=== PATIENT | female | born 1960 | race Caucasian/White ===

== ENCOUNTER 2019-12-06 14:41 | Outpatient (CLI) | payer OTHER, SELFPAY ==
--- NOTE | 2019-12-06 14:50 | MM_ITS ---
WS: [id number] BILATERAL SCREENING DIGITAL MAMMOGRAM WITH CAD HISTORY: SCREENING COMPARISON: 08/27/2014 Bilateral CC and MLO views submitted. Computer aided detection analyzed. Breast composition: There are scattered areas of fibroglandular density. No suspicious masses, microc alcifications or architectural distortion. Benign calcification in the anterior LEFT breast. MM/[place] [id number] IMPRESSION: BI-RADS: 2-Benign FOLLOW UP: 1 Year Follow-up
== END 2019-12-06 14:42 | disposition home or self-care (01) ==
LOC: RADSHAW 14:47
PROVIDERS: PCP Nurse Practitioner; Visit Provider Nurse Practitioner
DX: Z12.31 Encounter for screening mammogram for malignant neoplasm of breast (principal)
CPT/HCPCS: 77067

== ENCOUNTER → 2019-12-18 13:29 | Outpatient (BNVA) | payer OTHER, SELFPAY | PROVIDERS: PCP Nurse Practitioner; Visit Provider Obstetrics & Gynecology | DX: N90.89 Other specified noninflammatory disorders of vulva and perineum (principal) | CPT/HCPCS: 88305 ==

== ENCOUNTER 2019-12-23 08:14 | Outpatient (CLI) | payer OTHER, SELFPAY ==
--- NOTE | 2019-12-23 08:26 | US_ITS ---
WS: [id number] ULTRASOUND ABDOMEN LIMITED CLINICAL INFORMATION: ELEVATED LIVER ENZYMES COMPARISON: None. FINDINGS: Technically difficult examination due to body habitus Liver is not well seen Size: Normal. Craniocaudal length: 19.0 cm. Echogenicity: Coarse Surface nodularity: None. Mass (size and location): None. Bile ducts Intrahepatic ducts: Normal. Common bile duct diameter: 0.3 cm. Gallbladder Removed Pancreas Not well seen Right kidney: Lobulated Hydronephrosis: None. Size: 11.0 cm x 5.0 cm x 5.0 cm. Abdominal aorta and IVC Visualized portions are normal. Ascites: None. US/US abdomen limited [id number] IMPRESSION: 1. Technically difficult examination due to body habitus. 2. Hepatomegaly with diffuse fatty infiltration. 3. Gallbladder removed. 4. Pancreas not well seen. 5. No hydronephrosis in right kidney.
== END 2019-12-23 08:15 | disposition home or self-care (01) ==
LOC: RAD 08:16
PROVIDERS: PCP Nurse Practitioner; Visit Provider Nurse Practitioner
DX: R74.8 Abnormal levels of other serum enzymes (principal); K76.0 Fatty (change of) liver, not elsewhere classified; R16.0 Hepatomegaly, not elsewhere classified
CPT/HCPCS: 76705

== ENCOUNTER 2020-03-20 14:23 | Outpatient (CLI) | payer OTHER, SELFPAY ==
--- NOTE | 2020-03-20 14:28 | US_ITS ---
WS: [id number] Bilateral renal ultrasound, 03/20/2020 Clinical Data: URINARY INCONT. LOBULATED KIDNEY Comparison: Gallbladder and right upper quadrant ultrasound, 12/23/2019. Findings: The right kidney measures 11.9 cm x 6.1 cm x 5.5 cm and the left kidney is 11.0 cm x 6.5 cm x 5.8 cm. There are no cysts, masses or hydronephrosis. The renal cortical margin shows minimal lobulation whi ch is an incidental finding. No renal calculi are seen. US/US renal BI* [id number] Impression: Negative bilateral renal ultrasound.
== END 2020-03-20 14:24 | disposition home or self-care (01) ==
LOC: RAD 14:25
PROVIDERS: PCP Nurse Practitioner; Visit Provider Nurse Practitioner
DX: R32 Unspecified urinary incontinence (principal); Q63.1 Lobulated, fused and horseshoe kidney
CPT/HCPCS: 76770

== ENCOUNTER → 2020-05-07 14:02 | Outpatient (BNVA) | payer OTHER, SELFPAY | PROVIDERS: PCP Nurse Practitioner; Referring Provider Nurse Practitioner; Visit Provider Specialist | DX: M25.561 Pain in right knee (principal) | CPT/HCPCS: 73560; 73565 ==

== ENCOUNTER 2020-05-26 15:41 | Outpatient (CLI) | payer OTHER, SELFPAY ==
--- NOTE | 2020-05-26 16:01 | MR_ITS ---
WS: [id number] MRI RIGHT KNEE NONCONTRAST TECHNIQUE: Axial PD, coronal PD fat sat, coronal PD, sagittal PD, and sagittal PD fat-sat images obta ined. CLINICAL INFORMATION: KNEE PAIN COMPARISON: None. FINDINGS: Distal quadriceps and patella tendons are normal. Hypertrophic patella. Moderate tricompartmental art hritis with joint space narrowing. Normal PCL. ACL is difficult to visualize and is likely chronicall y torn. A few residual fibers visualized on coronal imaging. Chronic thinning of the medial and lateral meniscus. No acute appearing meniscal tears. Moderate jhon dromalacia involving the medial and lateral joint compartments. Hypertrophic changes along the joint line. Mild soft tissue edema about the joint line. Advanced chondromalacia patella. No subchondral edema. N ormal medial and lateral collateral ligaments. Subchondral degenerative edema involving the medial timmy int compartment and medial tibial plateau. Normal popliteal fossa. Tiny popliteal cyst. MR/MR knee RT wo con* [id number] IMPRESSION: 1. ACL is difficult to visualize likely chronically torn. A few residual fiber s visualized on coronal imaging. Normal PCL. 2. 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 3. Advanced chondromalacia patella. No subchondral edema. 4. Chronic thinning of the medial and lateral meniscus. No acute appearing men iscal tears. 5. Degenerative edema within the medial tibial plateau. Hypertrophic changes a bout the joint line.
== END 2020-05-26 15:42 | disposition home or self-care (01) ==
LOC: RADWPI 15:42
PROVIDERS: PCP Nurse Practitioner; Visit Provider Specialist
DX: R60.0 Localized edema; M22.41 Chondromalacia patellae, right knee; M17.11 Unilateral primary osteoarthritis, right knee
CPT/HCPCS: 73721

== ENCOUNTER 2020-06-04 12:28 | Outpatient (RCR) | payer OTHER, SELFPAY | END 2020-06-28 23:59 | disposition home or self-care (01) | LOC: SPT 12:28 | PROVIDERS: PCP Nurse Practitioner; Referring Provider Specialist; Visit Provider Specialist | DX: M25.561 Pain in right knee (principal) | CPT/HCPCS: 97110; 97161 ==

== ENCOUNTER 2020-06-29 06:00 | Outpatient (RCR) | payer OTHER, SELFPAY | END 2020-07-26 23:59 | disposition home or self-care (01) | LOC: SPT 06:00 | PROVIDERS: PCP Nurse Practitioner; Referring Provider Specialist; Visit Provider Specialist | DX: M25.561 Pain in right knee (principal) | CPT/HCPCS: 97110 ==

== ENCOUNTER 2020-07-27 06:00 | Outpatient (RCR) | payer OTHER, SELFPAY | END 2020-08-26 23:59 | disposition home or self-care (01) | LOC: SPT 06:00 | PROVIDERS: PCP Nurse Practitioner; Referring Provider Specialist; Visit Provider Specialist | DX: M25.561 Pain in right knee (principal) | CPT/HCPCS: 97110 ==

== ENCOUNTER 2020-08-27 06:00 | Outpatient (RCR) | payer OTHER, SELFPAY | END 2020-09-25 23:59 | disposition home or self-care (01) | LOC: SPT 06:00 | PROVIDERS: PCP Nurse Practitioner; Referring Provider Specialist; Visit Provider Specialist | DX: M25.561 Pain in right knee (principal) | CPT/HCPCS: 97110 ==

== ENCOUNTER 2020-09-26 06:00 | Outpatient (RCR) | payer OTHER, SELFPAY | END 2020-10-26 23:59 | disposition home or self-care (01) | LOC: SPT 06:00 | PROVIDERS: PCP Nurse Practitioner; Referring Provider Specialist; Visit Provider Specialist | DX: M25.561 Pain in right knee (principal) | CPT/HCPCS: 97110 ==

== ENCOUNTER 2020-10-27 06:00 | Outpatient (RCR) | payer OTHER, SELFPAY | END 2020-11-25 23:59 | disposition home or self-care (01) | LOC: SPT 06:00 | PROVIDERS: PCP Nurse Practitioner; Referring Provider Specialist; Visit Provider Specialist | DX: M25.561 Pain in right knee (principal) | CPT/HCPCS: 97110 ==

== ENCOUNTER 2020-11-12 05:59 | Outpatient (CLI) | payer OTHER, SELFPAY ==
[2020-11-12 05:57] VITALS: BP 133/76; PULSE 84; RESP 22; TEMP 37.2; O2SAT 94; BMI 43.0
--- NOTE | 2020-11-12 06:31 | AMB.MCA ---
Patient Information Referred by: 60-year-old female who had onset of symptoms with fever myalgias sinus congestion mild cough on November 06 was tested at the [facility] which came back positive. She meets criteria based on history of hypertension and obesity. Discussed with the patient she wishes to proceed. Discussed risk benefits and alternatives patient given opportunity to ask questions. She has not been excessively short of breath but still has a cough she has had some diarrhea she did not has not needed any oxygen to this point. Symptom onset date: 11/06/20 COVID 19 common symptoms: positive fever(s), chills, cough, dyspnea, fatigue, body aches, headache(s), throat pain, nasal congestion, nausea and diarrhea; negative loss of sense of smell and/or taste COVID 19 other sytmptoms: negative requiring oxygen or respiratory distress Severity: mild Treatment prior to arrival: none [facility] COVID test results: No Data to Display outside results available, scanned Criteria/Plan Inclusion/Exclusion Criteria weight >/= 40kg, + direct test </= 10 days ago and symptom onset </= 10 days ago BMI >/= 35 and age >/= 55 and has hypertension needs hospitalization (DO NOT GIVE), needs oxygen (DO NOT GIVE) and needs increased oxygen (DO NOT GIVE) Patient education patient/family/caregiver received/reviewed fact sheet, Emergency Use Authorization/unapproved drug status discussed with patient/family/caregiver, alternatives to this treatment discussed with patient/family/caregiver, risks and benefits of medication reviewed with patient/family/caregiver, patient/family/caregiver given opportunity for questions, which were answered and patient consents to receiving Monoclonal Antibody Treatment Related diagnosis (1) Morbid obesity with BMI of 45.0-49.9, adult: (2) Hypertension: Plan for treatment Meets criteria for Monoclonal Antibody infusion Ordering Monoclonal Antibody infusion for today
[2020-11-12 08:00] VITALS: RESP 15; O2SAT 92
== END 2020-11-12 08:44 | disposition home or self-care (01) ==
PROVIDERS: PCP Nurse Practitioner; Visit Provider Nurse Practitioner
DX: U07.1 COVID-19 (principal); E66.01 Morbid (severe) obesity due to excess calories; Z68.42 Body mass index [BMI] 45.0-49.9, adult; I10 Essential (primary) hypertension
CPT/HCPCS: 96365

== ENCOUNTER → 2021-03-01 15:10 | Outpatient (BNVA) | payer OTHER, BC, SELFPAY | PROVIDERS: PCP Nurse Practitioner; Visit Provider Internal Medicine | DX: E11.65 Type 2 diabetes mellitus with hyperglycemia (principal); E11.59 Type 2 diabetes mellitus with other circulatory complications; E11.42 Type 2 diabetes mellitus with diabetic polyneuropathy; E16.2 Hypoglycemia, unspecified; I10 Essential (primary) hypertension; E78.2 Mixed hyperlipidemia; R30.0 Dysuria; I25.10 Atherosclerotic heart disease of native coronary artery without angina pectoris; E66.01 Morbid (severe) obesity due to excess calories; Z68.42 Body mass index [BMI] 45.0-49.9, adult; Z87.891 Personal history of nicotine dependence | CPT/HCPCS: 99214 ==

== ENCOUNTER → 2021-03-15 11:19 | Outpatient (BNVA) | payer OTHER, BC, SELFPAY | PROVIDERS: PCP Nurse Practitioner; Visit Provider Internal Medicine | DX: R30.0 Dysuria (principal); E11.59 Type 2 diabetes mellitus with other circulatory complications; E11.65 Type 2 diabetes mellitus with hyperglycemia; E11.42 Type 2 diabetes mellitus with diabetic polyneuropathy; I25.10 Atherosclerotic heart disease of native coronary artery without angina pectoris; E66.01 Morbid (severe) obesity due to excess calories; Z68.42 Body mass index [BMI] 45.0-49.9, adult; E16.2 Hypoglycemia, unspecified; Z87.891 Personal history of nicotine dependence | CPT/HCPCS: 99213 ==

== ENCOUNTER → 2021-04-08 13:01 | Outpatient (BNVA) | payer OTHER, BC, SELFPAY | PROVIDERS: PCP Nurse Practitioner; Visit Provider Internal Medicine | DX: E11.59 Type 2 diabetes mellitus with other circulatory complications (principal); E11.65 Type 2 diabetes mellitus with hyperglycemia; E11.42 Type 2 diabetes mellitus with diabetic polyneuropathy; I10 Essential (primary) hypertension; I25.10 Atherosclerotic heart disease of native coronary artery without angina pectoris; E66.01 Morbid (severe) obesity due to excess calories; Z68.42 Body mass index [BMI] 45.0-49.9, adult; Z87.891 Personal history of nicotine dependence; Z79.4 Long term (current) use of insulin | CPT/HCPCS: 99214 ==

== ENCOUNTER → 2021-04-18 14:20 | Outpatient (BNVA) | payer OTHER, BC, SELFPAY | PROVIDERS: PCP Nurse Practitioner; Visit Provider Nurse Practitioner | DX: R05.9 Cough, unspecified (principal) | CPT/HCPCS: 87400 ==

== ENCOUNTER 2021-04-24 13:45 | Emergency (ER) | payer OTHER, BC, SELFPAY ==
--- NOTE | 2021-04-24 13:52 | XRR_ITS ---
PROCEDURE INFORMATION: Exam: XR Left Knee Exam date and time: 04/24/2021 1:52 PM Age: 61 years old Clinical indication: Injury or trauma; Fall; Blunt trauma; Knee; Left; Additional info: Trauma/injury TECHNIQUE: Imaging protocol: XR Left knee. Views: 3 views. COMPARISON: No relevant prior studies available. FINDINGS: Bones/joints: Small osteophytes at the medial and lateral compartments. Mild loss of medial compartment joint space height. Moderate knee joint effusion. Large osteophyte versus an intra-articular loose body in the posterior knee joint space. No acute fracture. No dislocation. Normal bone mineralization. Soft tissues: No soft tissue swelling. No radiopaque foreign body. XR/XR knee LT 3V* [id number] IMPRESSION: 1. No acute fracture. Followup imaging recommended in 7-14 days if clinical concern for fracture persists. 2. Moderate knee joint effusion. 3. Degenerative changes at the medial and lateral compartments of the knee. Large osteophyte versus an intra-articular loose body in the posterior knee joint space. Further evaluation with MRI of the left knee on a nonemergent basis may be obtained if it will change clinical management, and the patient has no contraindications. Radiation Dose CTDIVOL = (mGy): DLP = (mGy-cm)
[2021-04-24 14:22] VITALS: BP 144/83; PULSE 71; RESP 16; TEMP 36.5; O2SAT 97; BMI 44.6
--- NOTE | 2021-04-24 14:42 | ED_ITS ---
HPI - Extremity Injury (Lower) General: Chief Complaint: Fall Stated Complaint: L KNEE INJURY, PAIN/SWELLING Time Seen by Provider: 04/24/21 14:39 Source: patient Mode of arrival: ambulatory Limitations: no limitations History of Present Illness: HPI Narrative: Patient is a 61-year-old female presents to ED today for evaluation of a left knee injury that she sustained approximately 5 to 6 days ago after tripping going up a flight of stairs and landing directly onto the knee. Patient has been ambulatory since the fall but states pain continues to worsen. No other injuries or complaints at this time. complaint: knee injury Onset (ago): day(s) Injury: Left: knee Place: home Severity: moderate Relieving factors: immobilization Exacerbating factors: weight bearing, movement and palpation Context: fall Associated symptoms: Reports no associated symptoms Other symptoms: none Review of Systems Musc: Reports: joint pain (L knee); Denies: neck pain, back pain, extremity pain, extremity swelling, joint swelling, joint redness or joint warmth Neuro: Denies: numbness in extremities or sensory changes PFS ED PFSH: Medical History Anxiety and depression Diagnosed in the and controlled well on medication at this time managed by primary care provider nurse jami Tvaeras. Chronic back pain Associated with neuropathy. Takes Lyrica for the neuropathy. Does take hydrocodone as needed for pain. GERD (gastroesophageal reflux disease) Controlled on medication Hypertension Diagnosed in 2018 managed by primary care provider nurse jami Taveras No pertinent past medical history Denies: hypercholesterolemia, thyroid problems, bleeding/clotting disorders, DVT/PE. PCP: DELMA Bazzi Post traumatic stress disorder (PTSD) Surgical History History of back surgery Pain pump insertion, removed in 2014 Hx of breast surgery ductectomy from the left breast done in her late 30s Hx of oophorectomy 1980---right lower quadrant incision-right ovary and appendix were removed when she presented with pain to the emergency room S/P appendectomy 1980-right lower quadrant incision, right ovary and appendix were removed. S/P cholecystectomy Laparoscopic procedure performed in 1992 S/P hysterectomy 1985--vaginal hysterectomy with left oophorectomy performed for a uterine mass she was told that there was no cancer but there were some abnormal cells and it was recommended that she have chemotherapy for 6 weeks however she did only 2 weeks and then did not finish the rest of treatment. S/P left knee arthroscopy S/P tonsillectomy and adenoidectomy As a child S/P tubal ligation 1982-immediately . Family History Mother Heart disease Hypertension Ovarian cancer Diagnosed at age 34 Suicide Thyroid condition Uterine cancer Diagnosed at age 34, unsure of origin Father Heart disease Thyroid condition Sister Thyroid condition Family/Other Thyroid condition [place], granddaughter Denies family history of Colon cancer Diabetes Hyperlipidemia Breast cancer Social History Smoking and tobacco status: former smoker Quit status (tobacco): has quit using tobacco Second hand smoke exposure: No Smoking risk assessment/counseling performed?: Yes Alcohol intake: former Desire information about alcohol rehabilitation?: No Counseling given: No Desire information about substance/drug rehabilitation?: No Counseling given: No Adopted: No Caregiver/support person: No Lives independently: Yes Household members: spouse Housing: House Marital status: Number of children: 2 Highest education level completed: Associate Degree: Occupational, Technical, Vocational Program service: Yes Current occupational status: employed Pets and animals: Yes History of recent travel: No Sexually active: Yes Current gender identity: Female Gricel/Hindu: Uatsdin Special gricel needs: No Agree to transfusion: No Physical Exam Const: COMMON NORMALS: no acute distress, no limitations and alert GENERAL APPEARANCE: cooperative NUTRITIONAL APPEARANCE: obese morbidly obese Extremity: GENERAL: Yes normal exam except as noted LEFT LOWER EXTREMITY: Yes knee joint (TTP lateral/posterior knee; no obvious swelling appreciated) Left knee: Yes neurovascular exam (normal) and Yes special tests (no obvious joint laxity noted) Neuro: COMMON NORMALS: moves all extremities, no focal motor deficits and no sensory deficits noted SENSORIUM/ORIENTATION: Yes alert Skin: COMMON NORMALS: no rashes or lesions noted GENERAL SKIN EXAM: no rashes or lesions noted TRAUMA: no lacerations or abrasions Course Vital Signs: Vital signs: Vital Signs Temperature 97.7 F 04/24/21 14:22 Pulse Rate 71 04/24/21 14:22 Respiratory Rate 18 04/24/21 14:43 Blood Pressure 144/83 04/24/21 14:22 Pulse Oximetry 97 04/24/21 14:22 MDM - Extremity Injury (Lower) MDM Narrative: Medical decision making narrative: Will ROSLYN wrap/crutches/pain meds and [facility]/referral to orthopedics if necessary. Imaging Data^: XR L knee: Radiologist's impression: [address] [place] [address] XRay Report Signed Patient: Randi Kay Unit #: [id number] : 1960 Age/Sex: 61 / F ADM Date: 04/24/21 Loc: ER Room/Bed: Attending Dr: Ordering Provider/Ordering MD: Kesha Schilling Date of Service: 04/24/21 Procedure(s): XR knee LT 3V* [id number] Accession Number(s): [id number] Report Number: [id number] PROCEDURE INFORMATION: Exam: XR Left Knee Exam date and time: 04/24/2021 1:52 PM Age: 61 years old Clinical indication: Injury or trauma; Fall; Blunt trauma; Knee; Left; Additional info: Trauma/injury TECHNIQUE: Imaging protocol: XR Left knee. Views: 3 views. COMPARISON: No relevant prior studies available. FINDINGS: Bones/joints: Small osteophytes at the medial and lateral compartments. Mild loss of medial compartment joint space height. Moderate knee joint effusion. Large osteophyte versus an intra-articular loose body in the posterior knee joint space. No acute fracture. No dislocation. Normal bone mineralization. Soft tissues: No soft tissue swelling. No radiopaque foreign body. XR/XR knee LT 3V* [id number] IMPRESSION: 1. No acute fracture. Followup imaging recommended in 7-14 days if clinical concern for fracture persists. 2. Moderate knee joint effusion. 3. Degenerative changes at the medial and lateral compartments of the knee. Large osteophyte versus an intra-articular loose body in the posterior knee joint space. Further evaluation with MRI of the left knee on a nonemergent basis may be obtained if it will change clinical management, and the patient has no contraindications. Radiation Dose CTDIVOL = (mGy): DLP = (mGy-cm) Dictated By: Julianna Givens MD Signed By: Julianna Givens MD Signed Date/Time: 04/24/21 1524 DD/ 1352 Discharge Plan Discharge Patient Disposition: Home Clinical Impression: Injury of knee, left Qualifiers: Encounter type: initial encounter Qualified Code(s): S89.92XA - Unspecified injury of left lower leg, initial encounter Condition: Stable Prescriptions: New hydrocodone-acetaminophen 5-325 mg tablet 1 tab PO Q6H PRN (Reason: pain) Qty: 14 RF: 0 No Action spironolactone [Aldactone] 25 mg tablet 25 mg PO DAILY RF: 0 Protonix [address] for susp in packet 40 mg PO DAILY RF: 0 amlodipine 10 mg tablet 10 mg PO DAILY RF: 0 pregabalin [Lyrica] 75 mg capsule 225 mg PO BID RF: 0 cholecalciferol (vitamin D3) 100 mcg (4,000 unit) tablet 100 mcg PO DAILY RF: 0 prazosin 2 mg capsule 4 mg PO DAILY RF: 0 topiramate [Topamax] 50 mg tablet 100 mg PO DAILY RF: 0 insulin aspart U-100 [Novolog Flexpen U-100 Insulin] 100 unit/mL (3 mL) insulin pen 5 unit SUBCUT .TIDAC Qty: 15 RF: 3 duloxetine [Cymbalta] 60 mg capsule,delayed release(DR/EC) 60 mg PO BID RF: 0 buspirone 30 mg tablet 20 mg PO BID RF: 0 Ozempic 0.25 mg or 0.5 mg(2 mg/1.5 mL) pen injector SUBCUT RF: 0 albuterol sulfate [Ventolin HFA] 90 mcg/actuation HFA aerosol inhaler 2 puff inhalation Q6H PRN (Reason: shortness of breath or wheezing) Qty: 8.5 RF: 0 alogliptin 25 mg tablet 25 mg PO DAILY Qty: 30 RF: 0 Discharge Orders: Discharge ED (Routine); Ordered 04/24/21 Ordered By: Kesha Schilling Referrals: Anju Taveras FNP [Primary Care Provider] - Coding Level of Care Code ED 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
[2021-04-24 14:43] VITALS: RESP 18
[2021-04-24 15:57] VITALS: RESP 16
== END 2021-04-24 15:47 | disposition home or self-care (01) ==
PROVIDERS: Emergency Provider Physician Assistant; PCP Nurse Practitioner
DX: S89.92XA Unspecified injury of left lower leg, initial encounter (principal); Z79.4 Long term (current) use of insulin; I10 Essential (primary) hypertension; Z87.891 Personal history of nicotine dependence; W01.0XXA Fall on same level from slipping, tripping and stumbling without subsequent striking against object, initial encounter
CPT/HCPCS: 73562; 99283; E0114

== ENCOUNTER → 2021-05-11 11:08 | Outpatient (BNVA) | payer OTHER, BC, SELFPAY | PROVIDERS: PCP Nurse Practitioner; Visit Provider Internal Medicine | DX: E11.42 Type 2 diabetes mellitus with diabetic polyneuropathy (principal); E11.59 Type 2 diabetes mellitus with other circulatory complications; E11.65 Type 2 diabetes mellitus with hyperglycemia; I25.10 Atherosclerotic heart disease of native coronary artery without angina pectoris; E66.01 Morbid (severe) obesity due to excess calories; F32.A Depression, unspecified; Z68.42 Body mass index [BMI] 45.0-49.9, adult; Z87.891 Personal history of nicotine dependence; Z79.84 Long term (current) use of oral hypoglycemic drugs | CPT/HCPCS: 99214 ==

== ENCOUNTER → 2021-06-07 13:10 | Outpatient (BNVA) | payer OTHER, BC, SELFPAY | PROVIDERS: PCP Nurse Practitioner; Visit Provider Internal Medicine | DX: E11.59 Type 2 diabetes mellitus with other circulatory complications (principal); E11.42 Type 2 diabetes mellitus with diabetic polyneuropathy; E11.65 Type 2 diabetes mellitus with hyperglycemia; I25.10 Atherosclerotic heart disease of native coronary artery without angina pectoris; E66.01 Morbid (severe) obesity due to excess calories; Z68.42 Body mass index [BMI] 45.0-49.9, adult; Z79.4 Long term (current) use of insulin | CPT/HCPCS: 99214 ==

== ENCOUNTER → 2021-06-09 10:41 | Outpatient (BNVA) | payer OTHER, BC, SELFPAY | PROVIDERS: PCP Nurse Practitioner; Referring Provider Nurse Practitioner; Visit Provider Podiatrist Foot & Ankle Surgery | DX: M79.671 Pain in right foot (principal) | CPT/HCPCS: 73630 ==

== ENCOUNTER 2021-06-09 14:16 | Outpatient (CLI) | payer OTHER, SELFPAY | END 2021-06-09 14:17 | disposition home or self-care (01) | LOC: SPT 14:17 | PROVIDERS: PCP Nurse Practitioner; Visit Provider Podiatrist Foot & Ankle Surgery | DX: Z46.89 Encounter for fitting and adjustment of other specified devices (principal); M72.2 Plantar fascial fibromatosis; E11.21 Type 2 diabetes mellitus with diabetic nephropathy; M21.40 Flat foot [pes planus] (acquired), unspecified foot; M21.611 Bunion of right foot; M21.612 Bunion of left foot; M20.41 Other hammer toe(s) (acquired), right foot; M20.42 Other hammer toe(s) (acquired), left foot | CPT/HCPCS: 97760; L4397 ==

== ENCOUNTER 2021-07-02 16:53 | Outpatient (CLI) | payer OTHER, SELFPAY ==
--- NOTE | 2021-07-02 | US_ITS ---
WS: . PROCEDURE INFORMATION: Exam: US Right Non-Vascular Joint or Other Extremity Structure Exam date and time: 07/02/2021 5:00 PM Clinical indication: Pain: Bilateral plantar metatarsal area pain. 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 Pain in bilateral plantar metatarsal areas x 6 yrs. HX neuropathy x 6 yrs. Iddm x 1 yr. Obesity. Painful, difficulty walking. She states that she has almost no feeling in either foot x 1 yr. ; Additional info: Rule out dc's neuroma, bilateral lower extremities TECHNIQUE: Imaging protocol: Right US joint or other nonvascular extremity structure or structures. Real-time ultrasound with image documentation. Limited study. Exam focused on the lower extremity in the region of clinical interest. COMPARISON: No relevant prior studies available. FINDINGS: Soft tissues: Unremarkable. No significant edema. No loculated collections. No focal mass Exam: US Left Non-Vascular Joint or Other Extremity Structure Exam date and time: 07/02/2021 5:00 PM Age: 61 years old Clinical indication: Pain: Bilateral plantar metatarsal area pain. 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 Pain in bilateral plantar metatarsal areas x 6 yrs. HX neuropathy x 6 yrs. Iddm x 1 yr. Obesity. Painful, difficulty walking. She states that she has almost no feeling in either foot x 1 yr. ; Additional info: Rule out dc's neuroma, bilateral lower extremities TECHNIQUE: Imaging protocol: Left US joint or other nonvascular extremity structure or structures. Real-time ultrasound with image documentation. Limited study. Exam focused on the lower extremity in the region of clinical interest. COMPARISON: No relevant prior studies available. FINDINGS: Soft tissues: Unremarkable. No significant edema. No loculated collections. No focal mass. US/ soft tissue/extremity [id number] IMPRESSION: No mass or fluid collection in the area of concern, right foot. PROCEDURE INFORMATION: IMPRESSION: No mass or fluid collection in the area of concern, left foot.
--- NOTE | 2021-07-02 17:00 | USR_ITS ---
. PROCEDURE INFORMATION: Exam: US Right Non-Vascular Joint or Other Extremity Structure Exam date and time: 07/02/2021 5:00 PM Clinical indication: Pain: Bilateral plantar metatarsal area pain. 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 Pain in bilateral plantar metatarsal areas x 6 yrs. HX neuropathy x 6 yrs. Iddm x 1 yr. Obesity. Painful, difficulty walking. She states that she has almost no feeling in either foot x 1 yr. ; Additional info: Rule out dc's neuroma, bilateral lower extremities TECHNIQUE: Imaging protocol: Right US joint or other nonvascular extremity structure or structures. Real-time ultrasound with image documentation. Limited study. Exam focused on the lower extremity in the region of clinical interest. COMPARISON: No relevant prior studies available. FINDINGS: Soft tissues: Unremarkable. No significant edema. No loculated collections. No focal mass PROCEDURE INFORMATION: Exam: US Left Non-Vascular Joint or Other Extremity Structure Exam date and time: 07/02/2021 5:00 PM Age: 61 years old Clinical indication: Pain: Bilateral plantar metatarsal area pain. 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 Pain in bilateral plantar metatarsal areas x 6 yrs. HX neuropathy x 6 yrs. Iddm x 1 yr. Obesity. Painful, difficulty walking. She states that she has almost no feeling in either foot x 1 yr. ; Additional info: Rule out dc's neuroma, bilateral lower extremities TECHNIQUE: Imaging protocol: Left US joint or other nonvascular extremity structure or structures. Real-time ultrasound with image documentation. Limited study. Exam focused on the lower extremity in the region of clinical interest. COMPARISON: No relevant prior studies available. FINDINGS: Soft tissues: Unremarkable. No significant edema. No loculated collections. No focal mass. US/ soft tissue/extremity [id number] IMPRESSION: No mass or fluid collection in the area of concern, right foot. IMPRESSION: No mass or fluid collection in the area of concern, left foot.
== END 2021-07-02 16:54 | disposition home or self-care (01) ==
LOC: RAD 16:54
PROVIDERS: PCP Nurse Practitioner; Visit Provider Podiatrist Foot & Ankle Surgery
DX: G57.63 Lesion of plantar nerve, bilateral lower limbs (principal)
CPT/HCPCS: 76882

== ENCOUNTER 2021-07-05 15:42 | Inpatient (IN) | payer OTHER, BC, SELFPAY ==
[2021-07-05] VITALS (7 sets, daily range): BP systolic 100–150; BP diastolic 46–83; PULSE 68–83; RESP 16–18; TEMP 36.4–37; O2SAT 92–98
--- NOTE | 2021-07-05 15:55 | XRR_ITS ---
PROCEDURE INFORMATION: Exam: XR Chest Exam date and time: 07/05/2021 3:55 PM Age: 61 years old Clinical indication: Pain; Angina pectoris; Additional info: Chest pain TECHNIQUE: Imaging protocol: XR of the chest. Views: 1 view. COMPARISON: No relevant prior studies available. FINDINGS: Lungs: The lungs are clear. Pleural spaces: Unremarkable. No pleural effusion. No pneumothorax. Heart/Mediastinum: Unremarkable. No cardiomegaly. Bones/joints: Mild degenerative changes are present in the thoracic spine. No acute fracture is visualized. XR/XR chest 1V portable [id number] IMPRESSION: No acute cardiopulmonary abnormality.
--- NOTE | 2021-07-05 15:56 | ECG_ITS ---
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 [email or web address]
[2021-07-05 16:11] LABS: Basophils # 0.1 10^3/uL (0.0-0.1); Basophils % 0.8 %; Eosinophils # 0.3 10^3/uL (0.0-0.8); Eosinophils % 2.7 %; Hematocrit 44.6 % (37.0-47.0); Hemoglobin 14.7 g/dL (11.5-15.3); Lymphocytes # 2.8 10^3/uL (0.8-4.8); Lymphocytes % 27.2 %; Mean Corpuscular Hemoglobin 29.3 pg (28.0-34.0); Mean Corpuscular Volume 88.8 fl (81-99); Monocytes # 0.8 10^3/uL (0.2-0.9); Monocytes % 7.9 %; Neutrophils # 6.35 10^3/uL (1.8-7.7); Neutrophils % 60.7 %; Nucleated Red Blood Cells % 0 %; Platelet Count 215 10^3/cmm (130-400); Red Blood Count 5.02 10^6/uL (4.1-5.3); White Blood Count 10.5 10^3/uL (4.0-10.0)
[2021-07-05 16:38] LABS: Anion Gap 16.7 (5-19); Blood Urea Nitrogen 15 mg/dL (6-20); Calcium 9.6 mg/dL (8.5-10.5); Carbon Dioxide 24 mmol/L (22-29); Chloride 107 mmol/L (98-107); Glomerular Filtration Rate 73.4 mL/min (90-130); Glucose 130 mg/dL (65-115); Osmolality Calculated 301 mOsm/kg (285-295); Potassium 3.7 mmol/L (3.5-5.1); Sodium 144 mmol/L (136-145)
[2021-07-05 16:40] LABS: Troponin(5th) Baseline 8 ng/L (0-10)
--- NOTE | 2021-07-05 17:02 | W.ED.GENADLT ---
HPI - General Adult General: Chief complaint: Chest Pain Stated complaint: CHEST PRESSURE Time Seen by Provider: 07/05/21 15:55 History of Present Illness: CC: Chest Pain HPI: This is a [61] yo patient hx of morbid obesity, DM, HTN presenting to the ED complaining of acute sudden onset intermittent chest pressure and dypsnea on exertion worsening over the last 3 days. Patient reports pain lasts for a few minutes at a time and is dull pressure-like pain. Patient noticed extreme fatigue on ambulation the last few days and now with pain at rest. Pain is not tearing in nature and does not radiate to the back. Pain not associated with vomiting or PO intake. Denies any recent sympathomimetic drug use. Patient denies any cough. Denies palpitations, dysphagia, diaphoresis, radiation of pain to bilateral arms, jaw. Denies F/N/V/D. Patient denies any recent immobility, surgery, unilateral leg swelling, or prior PE. Patient denies any orthopnea. Onset: 3 days ago Duration: ongoing for the last 3 days Location: home Severity: moderate Associated symptoms: Reports chest pain and dyspnea; Deny nausea, rash, palpitations or vomiting Review of Systems Const: Denies: fever(s) or chills Eyes: Denies: change in vision ENMT: Denies: mouth pain Card: Reports: chest pain; Denies: palpitations Resp: Reports: dyspnea; Denies: non-productive cough GI: Denies: abdominal pain, nausea, vomiting or diarrhea : Denies: dysuria Musc: Denies: extremity pain Skin/Breast: Denies: rash or new lesions Neuro: Denies: weakness in extremities Psych: Reports: other (Normal mood) Caleb/Lymph: Denies: easy bruising [facility] ED PFSH: Medical History Anxiety and depression Diagnosed in the 1980s and controlled well on medication at this time managed by primary care provider nurse jami Taveras. Chronic back pain Associated with neuropathy. Takes Lyrica for the neuropathy. Does take hydrocodone as needed for pain. GERD (gastroesophageal reflux disease) Controlled on medication Hypertension Diagnosed in 2018 managed by primary care provider nurse jami Taveras No pertinent past medical history Denies: hypercholesterolemia, thyroid problems, bleeding/clotting disorders, DVT/PE. 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 S/P cholecystectomy Laparoscopic procedure performed in 1992 S/P hysterectomy 1985--vaginal hysterectomy with left oophorectomy performed for a uterine mass she was told that there was no cancer but there were some abnormal cells and it was recommended that she have chemotherapy for 6 weeks however she did only 2 weeks and then did not finish the rest of treatment. S/P left knee arthroscopy S/P tonsillectomy and adenoidectomy As a child S/P tubal ligation 1982-immediately . Family History Mother Heart disease Hypertension Ovarian cancer Diagnosed at age 34 Suicide Thyroid condition Uterine cancer Diagnosed at age 34, unsure of origin Father Heart disease Thyroid condition Sister Thyroid condition Family/Other Thyroid condition [place], granddaughter Denies family history of Colon cancer Diabetes Hyperlipidemia Breast cancer Social History Quit status (tobacco): has quit using tobacco Second hand smoke exposure: No Smoking risk assessment/counseling performed?: Yes Alcohol intake: former Desire information about alcohol rehabilitation?: No Counseling given: No Desire information about substance/drug rehabilitation?: No Counseling given: No Adopted: No Caregiver/support person: No Lives independently: Yes Household members: spouse Housing: House Marital status: Number of children: 2 Highest education level completed: Associate Degree: Occupational, Technical, Vocational Program service: Yes Current occupational status: employed Pets and animals: Yes History of recent travel: No Sexually active: Yes Current gender identity: Female Gricel/Church: [employer] Special gricel needs: No Agree to transfusion: No Physical Exam Const: COMMON NORMALS: alert HENMT: COMMON NORMALS: atraumatic HEAD & SCALP: atraumatic MOUTH: moist mucous membranes not abnormal Eye: COMMON NORMALS: EOMs intact bilaterally and conjunctivae normal CONJUNCTIVA: Yes conjunctivae normal Neck/C-Spine: COMMON NORMALS: full ROM and supple Resp: COMMON NORMALS: normal respiratory effort and clear to auscultation bilaterally AUSCULTATION: clear to auscultation bilaterally Cardio: COMMON NORMALS: regular rate RATE: regular rate OTHER: 2+ radial pulses b/l GI: COMMON NORMALS: Soft to palpation and non-tender PALPATION: Yes Soft to palpation Extremity: COMMON NORMALS: full ROM OTHER: no kiera sign, b/l nonpitting edema Neuro: SENSORIUM/ORIENTATION: Yes alert MOTOR EXAM: No Abnormal motor strength present and Other motor observations present (no focal motor deficits) Psych: COMMON NORMALS: speech normal SPEECH: Yes normal speech MOOD & AFFECT: Yes euthymic mood Course Vital Signs: Vital signs: Vital Signs Temperature 97.6 F 07/05/21 16:36 Pulse Rate 70 07/05/21 16:36 Respiratory Rate 18 07/05/21 17:32 Blood Pressure 145/70 07/05/21 16:36 Pulse Oximetry 98 07/05/21 16:36 MDM - General Adult Medical Decision Making [61]yo patient w/ hx of morbid obesity, DM, HTN presenting to the ED with evaluation of new onset sharp chest pain lasting for 3 days. HDS, pulse 2+ radially bilaterally, no signs of fluid overload, AAOx3, neuro exam intact. Given History and Exam today will evaluate for ACS, Pneumothorax, Pneumonia, Pulmonary Embolus, Tamponade, Aortic Dissection or other emergent problems as a cause for this presentation. Currently having 5/10 chest pain EMS intervention: ASA 325mg and nitro 0.4mg Workup: ECG, CXR, CBC, BMP, Troponin Interventions: Nitroglycerin 0.4 [id number] Findings: ECG: No overt evidence of STEMI, hyperacute T waves, localizable STD or T wave inversions. No evidence of Brugada?s sign, delta wave, epsilon wave, significantly prolonged QTc, or malignant arrhythmia. No Q waves. Other Labs unremarkable for emergent problems. CXR: Without PTX, PNA, or widened mediastinum Last Stress Test: never Last Heart Catheterization: never Dimer wnl. [5:30pm] On reassessment, the patient is HDS. Chest pressure improve with nitroglycerinx 3. EKG is non-ischemic but given HEART score > 4, will admit for stress test. Disposition: admission Lab Data : 07/05/21 15:25 07/05/21 15:25 Radiology Impressions Chest X-Ray 07/05/21 15:55 IMPRESSION: No acute cardiopulmonary abnormality. Laboratory Results WBC 10.5 10^3/uL (4.0-10.0) H 07/05/21 15:25 RBC 5.02 10^6/uL (4.1-5.3) 07/05/21 15:25 Hgb 14.7 g/dL (11.5-15.3) 07/05/21 15:25 Hct 44.6 % (37.0-47.0) 07/05/21 15:25 MCV 88.8 fl (81-99) 07/05/21 15:25 MCH 29.3 pg (28.0-34.0) 07/05/21 15:25 MCHC 33.0 g/dL (30.0-36.0) 07/05/21 15:25 RDW 13.0 % (12.1-15.1) 07/05/21 15:25 Plt Count 215 10^3/cmm (130-400) 07/05/21 15:25 MPV 12.0 fL (7.4-10.4) H 07/05/21 15:25 Neut % (Auto) 60.7 % 07/05/21 15:25 Lymph % (Auto) 27.2 % 07/05/21 15:25 [place] % (Auto) 7.9 % 07/05/21 15:25 Eos % (Auto) 2.7 % 07/05/21 15:25 Baso % (Auto) 0.8 % 07/05/21 15:25 Neut # (Auto) 6.35 10^3/uL (1.8-7.7) 07/05/21 15:25 Lymph # (Auto) 2.8 10^3/uL (0.8-4.8) 07/05/21 15:25 [place] # (Auto) 0.8 10^3/uL (0.2-0.9) 07/05/21 15:25 Eos # (Auto) 0.3 10^3/uL (0.0-0.8) 07/05/21 15:25 Baso # (Auto) 0.1 10^3/uL (0.0-0.1) 07/05/21 15:25 Nucleated RBC % (auto) 0 % 07/05/21 15:25 Nucleated RBCs # 0.0 /100WBC 07/05/21 15:25 D-Dimer 0.56 ug/mIFEU (0-0.59) 07/05/21 17:23 Sodium 144 mmol/L (136-145) 07/05/21 15:25 Potassium 3.7 mmol/L (3.5-5.1) 07/05/21 15:25 Chloride 107 mmol/L (98-107) 07/05/21 15:25 Carbon Dioxide 24 mmol/L (22-29) 07/05/21 15:25 Anion Gap 16.7 (5-19) 07/05/21 15:25 BUN 15 mg/dL (6-20) 07/05/21 15:25 Creatinine 0.8 mg/dL (0.5-0.9) 07/05/21 15:25 GFR Calculation 73.4 mL/min (90-130) L 07/05/21 15:25 Glucose 130 mg/dL (65-115) H 07/05/21 15:25 Calculated Osmolality 301 mOsm/kg (285-295) H 07/05/21 15:25 Calcium 9.6 mg/dL (8.5-10.5) 07/05/21 15:25 Troponin T Baseline 8 ng/L (0-10) 07/05/21 15:25 Discharge Plan Discharge Patient Disposition: Admitted As Inpatient Clinical Impression: Chest pain, Dyspnea Condition: Stable Coding Level of Care Code ED Sap Mobility Architect for Stefany Fwd Exam Comprehensive
[2021-07-05] MEDS: nitroglycerin 0.4 mg sublingual Tablet SUBLINGUAL ×2 (17:04→17:11)
[2021-07-05] MEDS: morphine 4 mg/mL SDV 1 mL IVP (17:32)
[2021-07-05 17:48] LABS: D Dimer 0.56 ug/mIFEU (0-0.59)
--- NOTE | 2021-07-05 18:01 | ECG_ITS ---
[facility] Test Date: 2021-07-06 Pat Name: Randi Kay Department: Room: Gender: Female Digital Account Coordinator: Nica BroderickGeni : 1960 Requested By: Shayne Payan Order Number: [id number] Delores MD: Rosa Fitzpatrick M.D. Interpretive Statements NAME OF STUDY: LEXISCAN SESTAMIBI STRESS TEST INDICATION: Chest Pressure PROCEDURE: At the baseline, the blood pressure was 103/71 mmHg with a heart rate of 58 bpm. The electrocardiogram showed sinus bradycardia, left axis deviation. Right bundle branch block. The Lexiscan was infused over a period of 20 seconds. A total of 0.4 milligrams of Lexiscan was infused. The stress phase was continued for a total of 5 minutes. Heart rate at the end of the stress phase was 67 bpm with a blood pressure (not checked). The EKG at the peak infusion revealed sinus rhythm with no significant ST-T wave changes. Patient developed chest pain 9/10 during Lexiscan infusion. Sestamibi was injected 20 seconds after the Lexiscan infusion. The study was terminated due to protocol completion. Blood pressure at the end of the recovery phase was (not checked) with a heart rate of 62 beats per minute. CONCLUSION: 1. No significant EKG changes with the LexiScan infusion. 2. No LexiScan induced cardiac arrhythmia. Chest pressure during Lexiscan infusion. 3. Normal blood pressure and heart rate response. 4. Sestamibi/sestamibi perfusion scan pending; see separate report. SEND RESULTS TO DR. PAYAN Electronically Signed On 07-06-2021 13:11:24 MASTER PRINTER by Rosa Fitzpatrick M.D. [email or web address].[email or web address]/store/OM/[id number]
[2021-07-05 18:17] LABS: Troponin 5 2HR 6.34 ng/L (0-10)
[2021-07-05 18:22] LABS: Troponin 5 2HR Delta -1.66 ABS# (0-10)
--- NOTE | 2021-07-05 18:22 | P.HP_ITS ---
Providers/Chief Complaint Primary Care Provider: DELMA Lua Chief Complaint: CHEST PRESSURE History of Present Illness Randi Kay is a 61 year old female with past medical history of hypertension, type 2 diabetes mellitus on insulin with significant family history of cardiac refusing follow-up with her grandmother presented to the ER today after having called: On and off on exertion along with shortness of breath increasing for last 5 days along with chest pressure on exertion since today morning. Patient has not had similar symptoms in the past. Patient states last stress test was around 4 years ago and was reported normal.. He has been angiogram many years ago and she will diagnosed of having cardiac muscle spasm. Blood work in the ER showed a white count of 10,000, hemoglobin of 14.7, D-dimer of 0.5, sodium 144, creatinine of 0.8, baseline troponin of 8 with a delta of -1 in 2 hours. Review of Systems General: Reports: 10 or more systems reviewed and unremarkable except in HPI and below Const: Denies: fever(s), chills, body aches, change in appetite, change in weight, malaise, night sweats, diaphoresis, change in sleep pattern, daytime sleepiness or snoring Eyes: Denies: change in vision, blurry vision, photophobia, eye discomfort or eye discharge ENMT: Denies: throat pain, enlarged tonsils, hoarseness, mouth pain, oral sores, dry mouth, tinnitus, nasal congestion or post nasal drip Card: Denies: chest pain, palpitations, irregular heart rhythm, edema, swelling of feet/ankles, lightheadedness, syncope, pre-syncope, dyspnea on exertion, orthopnea, leg pain with exertion or acrocyanosis Resp: Denies: dyspnea, productive cough, non-productive cough, wheezing, stridor, pain on inspiration, change in phlegm color, hemoptysis or chest congestion GI: Denies: abdominal pain, nausea, vomiting, hematemesis, coffee ground emesis, dysphagia, heartburn, diarrhea, constipation, bloating, GI cramping, change in bowel habits, pain on defecation, hematochezia or melena : Denies: flank pain, dysuria, urinary frequency, urinary urgency, urinary hesitancy, nocturia or hematuria Musc: Denies: neck pain, back pain, extremity pain, joint pain, joint swelling, joint redness, joint stiffness or limited range of motion Neuro: Denies: headache(s), numbness in extremities, weakness in extremities, sensory changes, lack of coordination, difficulty walking, frequent falls, dizziness, vertigo, confusion, Slurred speech present, difficulty communicating thoughts or seizure-like activity Psych: Denies: anxiety, depression, mood swings, panic attacks, hopelessness or irritability Endo: Denies: polyuria, polydipsia, tired all the time, cold intolerance, excessive sweating, flushing or heat intolerance Caleb/Lymph: Denies: easy bruising or easy bleeding All/Imm: Denies: tongue swelling, facial swelling or acute wheezing Medications/Allergies Home Medications Medication Instructions Recorded Confirmed Last Taken Type amlodipine 10 mg tablet 10 mg PO DAILY 11/25/19 07/05/21 Unknown History pantoprazole 40 mg granules 40 mg PO DAILY 11/25/19 07/05/21 Unknown History delayed-release for susp in packet (Protonix) spironolactone 25 mg tablet 25 mg PO DAILY 11/25/19 07/05/21 Unknown History (Aldactone) cholecalciferol (vitamin D3) 100 100 mcg PO DAILY 01/28/21 07/05/21 Unknown History mcg (4,000 unit) tablet topiramate 50 mg tablet (Topamax) 100 mg PO BID tab 01/28/21 07/05/21 Unknown History pregabalin 75 mg capsule (Lyrica) 300 mg PO BID cap 03/01/21 07/05/21 Unknown History albuterol sulfate 90 mcg/actuation 2 puff INHALATION Q6H PRN #8.5 g 04/18/21 07/05/21 Unknown Rx aerosol inhaler (Ventolin HFA) hydrocodone 5 mg-acetaminophen 325 1 tab PO Q6H PRN #14 tab 04/24/21 07/05/21 Unknown Rx mg tablet buspirone 30 mg tablet 15 mg PO TID tab 05/11/21 07/05/21 Unknown History prazosin 2 mg capsule 2 mg PO TID cap 05/11/21 07/05/21 Unknown History blood-glucose meter,continuous #1 ea 05/17/21 07/05/21 Unknown Rx (Dexcom G6 Carbon Furnace Operator) blood-glucose sensor (Dexcom G6 #3 ea 05/17/21 07/05/21 Unknown Rx Sensor) blood-glucose transmitter (Dexcom #1 ea 05/17/21 07/05/21 Unknown Rx G6 Transmitter) duloxetine 60 mg capsule,delayed 90 mg PO DAILY cap 06/07/21 07/05/21 Unknown History release (Cymbalta) Custom Molded Orthotics #1 ea 06/09/21 07/05/21 Unknown Rx Night splint to the right #1 ea 06/09/21 07/05/21 Unknown Rx alprazolam 0.25 mg tablet (Xanax) 0.25 mg PO DAILY PRN 06/09/21 07/05/21 Unknown History semaglutide (Ozempic) 1 mg (0.8 mL) SUBCUT .WEEKLY #24 ml 06/29/21 07/05/21 Unknown Rx insulin aspart U-100 100 unit/mL See Rx Instructions .ROUTE .COMPLEX 07/05/21 07/05/21 Unknown History (3 mL) subcutaneous pen (Novolog Flexpen U-100 Insulin aspart) Allergies Allergy/AdvReac Type Severity Reaction Status Date / Time bee venom protein (honey bee) Allergy anaphylaxis Verified 07/05/21 16:51 Influenza Virus Vaccines Allergy anaphylacti Verified 07/05/21 16:51 c mushroom Allergy anaphylaxis Verified 07/05/21 16:51 ondansetron [From Zofran] Allergy Dystonia Verified 07/05/21 16:51 tetracycline Allergy Rash, Verified 07/05/21 16:51 shortness of breath trazodone Allergy Rash, Verified 07/05/21 16:51 trouble breathing PFSH Acute PFSH: Medical History Anxiety and depression Diagnosed in the and controlled well on medication at this time managed by primary care provider nurse practitioner Nitin. Chronic back pain Associated with neuropathy. Takes Lyrica for the neuropathy. Does take hydrocodone as needed for pain. GERD (gastroesophageal reflux disease) Controlled on medication Hypertension Diagnosed in 2017 managed by primary care provider nurse practitioner Nitin No pertinent past medical history Denies: hypercholesterolemia, thyroid problems, bleeding/clotting disorders, DVT/PE. PCP: DELMA Bazzi Post traumatic stress disorder (PTSD) Surgical History History of back surgery Pain pump insertion, removed in 2014 Hx of breast surgery ductectomy from the left breast done in her late 30s Hx of oophorectomy 1980---right lower quadrant incision-right ovary and appendix were removed when she presented with pain to the emergency room S/P appendectomy 1980-right lower quadrant incision, right ovary and appendix were removed. S/P cholecystectomy Laparoscopic procedure performed in 1992 S/P hysterectomy 1985--vaginal hysterectomy with left oophorectomy performed for a uterine mass she was told that there was no cancer but there were some abnormal cells and it was recommended that she have chemotherapy for 6 weeks however she did only 2 weeks and then did not finish the rest of treatment. S/P left knee arthroscopy S/P tonsillectomy and adenoidectomy As a child S/P tubal ligation 1982-immediately . Family History Mother Heart disease Hypertension Ovarian cancer Diagnosed at age 34 Suicide Thyroid condition Uterine cancer Diagnosed at age 34, unsure of origin Father Heart disease Thyroid condition Sister Thyroid condition Family/Other Thyroid condition [place], granddaughter Denies family history of Colon cancer Diabetes Hyperlipidemia Breast cancer Social History Quit status (tobacco): has quit using tobacco Second hand smoke exposure: No Smoking risk assessment/counseling performed?: Yes Alcohol intake: former Desire information about alcohol rehabilitation?: No Counseling given: No Desire information about substance/drug rehabilitation?: No Counseling given: No Adopted: No Caregiver/support person: No Lives independently: Yes Household members: spouse Housing: House Marital status: Number of children: 2 Highest education level completed: Associate Degree: Occupational, Technical, Vocational Program service: Yes Current occupational status: employed Pets and animals: Yes History of recent travel: No Sexually active: Yes Current gender identity: Female Gricel/Rastafarian: Anabaptist Special gricel needs: No Agree to transfusion: No Vitals/I&O/Wt Last Vital Signs Temp 97.6 F 07/05/21 16:36 Pulse 70 07/05/21 16:36 Resp 18 07/05/21 17:32 BP 145/70 07/05/21 16:36 Pulse Ox 98 07/05/21 16:36 Data : 07/05/21 15:25 07/05/21 15:25 A&P Assessment and plan (1) Chest pain: Status: Acute (2) Diabetic neuropathy: Status: Acute Qualifiers: Diabetes mellitus type: type 2 Diabetes mellitus complication detail: diabetic polyneuropathy Qualified Code(s): E11.42 - Type 2 diabetes mellitus with diabetic polyneuropathy (3) Uncontrolled type 2 diabetes mellitus: Status: Acute Qualifiers: Glycemic state: with hyperglycemia Qualified Code(s): E11.65 - Type 2 diabetes mellitus with hyperglycemia (4) Hypertension: Status: Acute (5) Anxiety and depression: Status: Acute (6) GERD (gastroesophageal reflux disease): Status: Acute Plan Chest pain under evaluation: Patient has history of uncontrolled diabetes, hypertension with significant family history of heart problems. Cycle troponins. Check HbA1c, lipid panel. N.p.o. after midnight for Lexiscan stress test. Echocardiogram. Aspirin 81 mg daily. Atorvastatin 80 mg daily. Hypertension: Goal blood pressure less than 140/90 mmHg Patient takes amlodipine 10 mg daily at home. Add metoprolol 25 mg twice daily. Will uptitrate accordingly. Type 2 diabetes mellitus: Insulin sliding scale at moderate dose protocol. Full code. Cardiac diet. N.p.o. after midnight. Lovenox for DVT prophylaxis. Attestations Medical Necessity Statement*: less than 2 MN for chest pain evaluation Time Spent in Patient Care: Greater than 35 minutes Coding Level of Care Code Acute Laboratory Chemical Assistant for Stefany Morales Diagnoses Chest pain R07.9 Diabetic neuropathy E11.42 Diabetes mellitus type: type 2 Diabetes mellitus complication detail: diabetic polyneuropathy Uncontrolled type 2 diabetes mellitus E11.65 Glycemic state: with hyperglycemia Hypertension I10 Anxiety and depression F41.9; F32.9 GERD (gastroesophageal reflux disease) K21.9
[2021-07-05 18:42] LABS: Iron 77 ug/dL (37-145); Percent Saturation 28.5 % (20-50); Thyroid Stimulating Hormone 1.26 uIU/mL (0.27-4.20); Total Iron Binding Capacity 270 mcg/dl; Unsaturated Iron Binding 193 ug/dL (112-347)
[2021-07-05] MEDS: morphine 4 mg/mL SDV 1 mL 2 MG IVP (19:45)
[2021-07-05] MEDS: enoxaparin 40 mg/0.4 mL Syringe SUBCUT (19:47)
[2021-07-05 21:44] LABS: Glucose Point of Care 139 mg/dL (70-110)
[2021-07-05 21:47] LABS: Troponin 5 6HR 11.35 ng/L (0-10)
[2021-07-05] MEDS: BuSPIRONE 10 mg Tablet 15 MG PO (21:56)
[2021-07-05] MEDS: metoprolol tartrate 25 mg Tablet PO (21:56)
[2021-07-05] MEDS: prazosin 1 mg Capsule 2 MG PO (21:56)
[2021-07-05] MEDS: pregabalin 150 mg Capsule 300 MG PO (21:56)
--- NOTE | 2021-07-05 21:56 | ECG_ITS ---
[facility] Test Date: 2021-07-05 Pat Name: Randi Kay Department: Room: Gender: Female Refrigerating Oiler: : 1960 Requested By: Giorgi Azul Order Number: [id number] Delores MD: Rosa Fitzpatrick M.D. Measurements Intervals [place] Rate: 72 P: 84 TN: 171 QRS: -62 QRSD: 168 T: 8 QT: 438 QTc: 480 Interpretive Statements SINUS RHYTHM LEFT AXIS DEVIATION [QRS AXIS < -30] RIGHT BUNDLE BRANCH BLOCK [120+ ms QRS DURATION, UPRIGHT V1, 40+ ms S IN I/aVL/V4/V5/V6] Compared to ECG 10/30/2018 21:22:56 No significant changes Electronically Signed On 07-06-2021 5:23:05 JUNIOR ACCOUNT MANAGER by Rosa Fitzpatrick M.D. [id number]
[2021-07-05 22:10] LABS: Troponin 5 6HR Delta 3.35 ng/L (0-12)
[2021-07-06] VITALS (16 sets, daily range): BP systolic 94–123; BP diastolic 60–71; PULSE 50–74; RESP 13–22; TEMP 36.6; O2SAT 93–98
[2021-07-06] MEDS: morphine 4 mg/mL SDV 1 mL 2 MG IVP ×3 (00:56→21:54)
[2021-07-06 06:28] LABS: Basophils # 0.1 10^3/uL (0.0-0.1); Basophils % 0.8 %; Eosinophils # 0.4 10^3/uL (0.0-0.8); Eosinophils % 4.9 %; Hematocrit 40.9 % (37.0-47.0); Hemoglobin 13.2 g/dL (11.5-15.3); Lymphocytes # 3.2 10^3/uL (0.8-4.8); Lymphocytes % 36.2 %; Mean Corpuscular HGB Conc 32.3 g/dL (30.0-36.0); Mean Corpuscular Hemoglobin 29.1 pg (28.0-34.0); Mean Corpuscular Volume 90.3 fl (81-99); Mean Platelet Volume 11.8 fL (7.4-10.4); Monocytes # 0.9 10^3/uL (0.2-0.9); Monocytes % 10.1 %; Neutrophils # 4.25 10^3/uL (1.8-7.7); Neutrophils % 47.4 %; Nucleated Red Blood Cells % 0 %; Platelet Count 213 10^3/cmm (130-400); Red Blood Count 4.53 10^6/uL (4.1-5.3); Red Cell Distribution Width 13.1 % (12.1-15.1)
[2021-07-06 06:47] LABS: Estmated Average Glucose 163; Hemoglobin A1C 7.3 % (4.0-6.0)
[2021-07-06 07:00] LABS: Chol HDL Ratio 3.07 mg/dL (0.0-4.40); Cholesterol 138 mg/dL (0-200); HDL Cholesterol 45 mg/dL (60-100); LDL Cholesterol Calculated 64 mg/dL (50-129); Triglycerides 146 mg/dL (0-150); VLDL Cholestrol Calculation 29 mg/dL (0-30)
[2021-07-06 07:07] LABS: Alanine Aminotransferase 20 U/L (0-33); Albumin Level 3.5 g/dL (3.5-5.2); Alkaline Phosphatase 118 IU/L (35-105); Anion Gap 14.8 (5-19); Aspartate Amino Transferase 25 U/L (0-32); Blood Urea Nitrogen 16 mg/dL (6-20); Calcium 9.6 mg/dL (8.5-10.5); Carbon Dioxide 21 mmol/L (22-29); Chloride 109 mmol/L (98-107); Globulin 2.6 g/dL (1.3-4.6); Glomerular Filtration Rate 73.4 mL/min (90-130); Glucose 131 mg/dL (65-115); Magnesium 1.9 mg/dL (1.7-2.3); Osmolality Calculated 295 mOsm/kg (285-295); Phosphorus 4.1 mg/dL (2.5-4.5); Potassium 3.8 mmol/L (3.5-5.1); Sodium 141 mmol/L (136-145); Total Bilirubin 0.4 mg/dL (0.15-1.2); Total Protein 6.1 g/dL (6.6-8.7)
--- NOTE | 2021-07-06 07:12 | PC.NURSE ---
Received report assumed care.No changes noted from report. ECHO in room.
--- NOTE | 2021-07-06 07:14 | PC.NURSE ---
BS per pt monitor 159
[2021-07-06] MEDS: regadenoson 0.4 Mg/5 ml Syringe IVP (07:57)
[2021-07-06] MEDS: perflutren protein-a microsphr 0.22 mg/mL SDV 3 mL IV (07:59)
[2021-07-06] MEDS: BuSPIRONE 10 mg Tablet 15 MG PO ×3 (10:10→22:04)
[2021-07-06] MEDS: pantoprazole DR 40 mg Tablet PO (10:10)
[2021-07-06] MEDS: prazosin 1 mg Capsule 2 MG PO ×3 (10:10→22:06)
[2021-07-06] MEDS: duloxetine 30 mg Capsule 90 MG PO (10:11)
[2021-07-06] MEDS: amlodipine 10 mg Tablet PO (10:11)
[2021-07-06] MEDS: insulin lispro 100 unit/1 mL SUBCUT (10:14)
[2021-07-06] MEDS: metoprolol tartrate 25 mg Tablet PO (10:26)
[2021-07-06] MEDS: pregabalin 150 mg Capsule 300 MG PO ×2 (10:27→22:07)
[2021-07-06] MEDS: topiramate 100 mg Tablet PO (10:29)
--- NOTE | 2021-07-06 13:59 | P.PN_ITS ---
Subjective Subjective: Overnight patient has stayed in the ER awaiting bed. She had occasional episodes of chest pressure. Had one episode of central chest pressure radiating to back today morning. Seen post stress test. Wearing comfortably in bed. Denies any nausea, vomiting, headache. Blood pressure is a lot better controlled. Vitals/I&O/Wt Last Vital Signs Temp 97.8 F 07/06/21 12:32 Pulse 62 07/06/21 12:32 Resp 16 07/06/21 12:32 BP 123/60 07/06/21 12:32 Pulse Ox 94 07/06/21 12:32 Physical Exam Narrative: General: No acute distress, AO x3, morbidly obese HEENT: PERRLA, pupils bilaterally equal and reactive Chest: Normal vesicular breath sounds, no added sounds, equal good air entry bilaterally CVS: S1-S2 regular, no murmurs, no tachycardia, no gallops, no rubs Abdomen: Soft, nontender, no organomegaly, bowel sounds present Neuro: No focal deficits, no facial deformity, AO x3, power 5/5 in all limbs Data : 07/06/21 06:16 07/06/21 06:16 A&P Assessment and plan (1) Chest pain: Status: Acute (2) Positive cardiac stress test: Status: Acute (3) Diabetic neuropathy: Status: Acute Qualifiers: Diabetes mellitus type: type 2 Diabetes mellitus complication detail: diabetic polyneuropathy Qualified Code(s): E11.42 - Type 2 diabetes mellitus with diabetic polyneuropathy (4) Uncontrolled type 2 diabetes mellitus: Status: Acute Qualifiers: Glycemic state: with hyperglycemia Qualified Code(s): E11.65 - Type 2 diabetes mellitus with hyperglycemia (5) Hypertension: Status: Acute (6) Anxiety and depression: Status: Acute (7) GERD (gastroesophageal reflux disease): Status: Acute (8) Hyperlipidemia: Status: Acute Qualifiers: Hyperlipidemia type: mixed hyperlipidemia Qualified Code(s): E78.2 - Mixed hyperlipidemia Plan Chest pain under evaluation: Patient has history of uncontrolled diabetes, hypertension with significant family history of heart problems. Positive stress test. A1c 7.3, lipid panel appreciated. Echocardiogram awaited. Continue with aspirin 81 mg, atorvastatin 20 mg daily. We will consult cardiology for further recommendation possible cardiac angiogram. Add troponin to morning labs. Hypertension: Goal blood pressure less than 140/90 mmHg. Better control. Given diabetes will stop amlodipine and start her on lisinopril 10 mg daily. Continue with metoprolol 25 mg twice daily. Type 2 diabetes mellitus: Insulin sliding scale at moderate dose protocol. Full code. Cardiac carb consistent diet. N.p.o. after midnight. Lovenox for DVT prophylaxis. Attestations Medical Necessity Statement*: Randi Kay is being changed to inpatient status as stay will now exceed 2 midnights. Ongoing hospital care is necessary for positive stress test in setting of type 2 diabetes mellitus, hypertension, morbid obesity for further evaluation with possible cardiac angiogram Time Spent in Patient Care: Greater than 35 minutes Coding Level of Care Code Acute Director Of Graduate Medical Education for g Fwd Diagnoses Chest pain R07.9 Diabetic neuropathy E11.42 Diabetes mellitus type: type 2 Diabetes mellitus complication detail: diabetic polyneuropathy Uncontrolled type 2 diabetes mellitus E11.65 Glycemic state: with hyperglycemia Hypertension I10 Anxiety and depression F41.9; F32.9 GERD (gastroesophageal reflux disease) K21.9 Positive cardiac stress test R94.39 Hyperlipidemia E78.2 Hyperlipidemia type: mixed hyperlipidemia
--- NOTE | 2021-07-06 16:18 | P.CONIM_ITS ---
Providers/Reason For Consult Consulting Physician/Specialty*: Dr. Fitzpatrick. Cardiology Reason for Consult*: Chest pain, Mildly abnormal stress test Attending Physician: Shayne Payan MD Primary Care Provider: DELMA Lua History of Present Illness History of Present Illness Randi Kay is a 61 year old female with past medical history of hypertension, type 2 diabetes mellitus on insulin with diabetic neuropathy,HLD, OA, former smoker and GERD presented for evaluation of chest pain. Chest pain initially for last 4 days burning and felt like heart burn ; later it changed to crushing in nature with some radiation to left shoulder. No N/V, palpitation or diapho resis. She has family h/oShe had no significant ST-T wave changes, negative troponins and echo with no RWMA. Stress test with small partially reversible ischemia in lateral wall with symptoms of chest pain during stress test. She continues to have chest pain on and off during hospitalization. Review of Systems General: Reports: 10 or more systems reviewed and unremarkable except in HPI and below Const: Reports: change in weight (lost >100 lb in past year); Denies: fever(s), chills, body aches, change in appetite, malaise or diaphoresis Eyes: Denies: change in vision, blurry vision, photophobia, eye discomfort or eye discharge ENMT: Denies: throat pain, hoarseness, nasal congestion or post nasal drip Card: Denies: chest pain, palpitations, irregular heart rhythm, edema, swelling of feet/ankles, lightheadedness, syncope, pre-syncope, dyspnea on exertion, orthopnea, leg pain with exertion or acrocyanosis Resp: Denies: dyspnea, productive cough, non-productive cough, wheezing, change in phlegm color, hemoptysis or chest congestion GI: Reports: heartburn; Denies: abdominal pain, nausea, vomiting, hematemesis, diarrhea, constipation, change in bowel habits, hematochezia or melena : Denies: flank pain, dysuria, urinary frequency, urinary urgency, urinary hesitancy, nocturia or hematuria Musc: Reports: joint pain; Denies: neck pain, back pain or extremity pain Neuro: Denies: headache(s), numbness in extremities, weakness in extremities, difficulty walking, dizziness, vertigo, confusion, Slurred speech present or seizure-like activity Psych: Denies: anxiety, depression, mood swings, panic attacks, hopelessness or irritability Endo: Denies: polyuria or polydipsia Caleb/Lymph: Denies: easy bruising or easy bleeding All/Imm: Denies: tongue swelling, facial swelling or acute wheezing Medications/Allergies Home Medications Medication Instructions Recorded Confirmed Last Taken Type amlodipine 10 mg tablet 10 mg PO DAILY 11/25/19 07/05/21 Unknown History pantoprazole 40 mg granules 40 mg PO DAILY 11/25/19 07/05/21 Unknown History delayed-release for susp in packet (Protonix) spironolactone 25 mg tablet 25 mg PO DAILY 11/25/19 07/05/21 Unknown History (Aldactone) cholecalciferol (vitamin D3) 100 100 mcg PO DAILY 01/28/21 07/05/21 Unknown History mcg (4,000 unit) tablet topiramate 50 mg tablet (Topamax) 100 mg PO BID tab 01/28/21 07/05/21 Unknown History pregabalin 75 mg capsule (Lyrica) 300 mg PO BID cap 03/01/21 07/05/21 Unknown History albuterol sulfate 90 mcg/actuation 2 puff INHALATION Q6H PRN #8.5 g 04/18/21 07/05/21 Unknown Rx aerosol inhaler (Ventolin HFA) hydrocodone 5 mg-acetaminophen 325 1 tab PO Q6H PRN #14 tab 04/24/21 07/05/21 Unknown Rx mg tablet buspirone 30 mg tablet 15 mg PO TID tab 05/11/21 07/05/21 Unknown History prazosin 2 mg capsule 2 mg PO TID cap 05/11/21 07/05/21 Unknown History blood-glucose meter,continuous #1 ea 05/17/21 07/05/21 Unknown Rx (Dexcom G6 Civil Designer) blood-glucose sensor (Dexcom G6 #3 ea 05/17/21 07/05/21 Unknown Rx Sensor) blood-glucose transmitter (Dexcom #1 ea 05/17/21 07/05/21 Unknown Rx G6 Transmitter) duloxetine 60 mg capsule,delayed 90 mg PO DAILY cap 06/07/21 07/05/21 Unknown History release (Cymbalta) Custom Molded Orthotics #1 ea 06/09/21 07/05/21 Unknown Rx Night splint to the right #1 ea 06/09/21 07/05/21 Unknown Rx alprazolam 0.25 mg tablet (Xanax) 0.25 mg PO DAILY PRN 06/09/21 07/05/21 Unknown History insulin aspart U-100 100 unit/mL See Rx Instructions .ROUTE .COMPLEX 07/05/21 07/05/21 Unknown History (3 mL) subcutaneous pen (Novolog Flexpen U-100 Insulin aspart) semaglutide (Ozempic) 1 mg (0.8 mL) SUBCUT .WEEKLY #24 ml 07/06/21 Unknown Rx Allergies Allergy/AdvReac Type Severity Reaction Status Date / Time bee venom protein (honey bee) Allergy anaphylaxis Verified 07/05/21 16:51 Influenza Virus Vaccines Allergy anaphylacti Verified 07/05/21 16:51 c mushroom Allergy anaphylaxis Verified 07/05/21 16:51 ondansetron [From Zofran] Allergy Dystonia Verified 07/05/21 16:51 tetracycline Allergy Rash, Verified 07/05/21 16:51 shortness of breath trazodone Allergy Rash, Verified 07/05/21 16:51 trouble breathing Current Medications Generic Name Dose Route Start Last Admin Trade Name Freq PRN Reason Stop Dose Admin Buspirone HCl 15 mg 07/05/21 21:00 07/06/21 10:10 Buspirone 10 Mg Tablet PO 15 mg TID MAI Administration Duloxetine HCl 90 mg 07/06/21 09:00 07/06/21 10:11 Duloxetine 30 Mg Capsule PO 90 mg DAILY MAI Administration Enoxaparin Sodium 40 mg 07/05/21 18:01 07/05/21 19:47 Enoxaparin 40 Mg/0.4 Ml Syringe SUBCUT 40 mg Q24H MAI Administration Insulin Human Lispro 0 unit 07/05/21 21:00 07/06/21 12:38 Insulin Lispro 100 Unit/1 Ml SUBCUT Not Given WM&BEDTIME [facility] Protocol Metoprolol Tartrate 25 mg 07/05/21 21:00 07/06/21 10:26 Metoprolol Tartrate 25 Mg Tablet PO 25 mg BID@0900,2100 MAI Administration Morphine Sulfate 2 mg 07/05/21 18:42 07/06/21 12:30 Morphine 4 Mg/Ml Sdv 1 Ml IVP 2 mg Q4H PRN Administration SEVERE PAIN Nitroglycerin 0.4 mg 07/05/21 16:49 07/05/21 17:11 Nitroglycerin 0.4 Mg Sublingual Tablet SUBLINGUAL 0.4 mg Q5M PRN Administration CHEST PAIN Pantoprazole Sodium 40 mg 07/06/21 09:00 07/06/21 10:[address] 40 Mg Tablet PO 40 mg DAILY MAI Administration Prazosin HCl 2 mg 07/05/21 21:00 07/06/21 10:10 Prazosin 1 Mg Capsule PO 2 mg TID MAI Administration Pregabalin 300 mg 07/05/21 21:00 07/06/21 10:27 Pregabalin 150 Mg Capsule PO 300 mg BID@0900,2100 MAI Administration Topiramate 100 mg 07/05/21 21:00 07/06/21 10:29 Topiramate 100 Mg Tablet PO 100 mg BID@0900,2100 MAI Administration PFSH Acute PFSH: Medical History Anxiety and depression Diagnosed in the and controlled well on medication at this time managed by primary care provider nurse practitioner Nitin. Chronic back pain Associated with neuropathy. Takes Lyrica for the neuropathy. Does take hydrocodone as needed for pain. Coronary artery disease due to type 2 diabetes mellitus GERD (gastroesophageal reflux disease) Controlled on medication Hypertension Diagnosed in 2017 managed by primary care provider nurse practitioner Nitin Metatarsalgia of both feet No pertinent past medical history Denies: hypercholesterolemia, thyroid problems, bleeding/clotting disorders, DVT/PE. PCP: DELMA Bazzi Post traumatic stress disorder (PTSD) Prinzmetal angina Surgical History History of back surgery Pain pump insertion, removed in 2014 Hx of breast surgery ductectomy from the left breast done in her late 30s Hx of oophorectomy 1980---right lower quadrant incision-right ovary and appendix were removed when she presented with pain to the emergency room S/P appendectomy 1980-right lower quadrant incision, right ovary and appendix were removed. S/P cholecystectomy Laparoscopic procedure performed in 1992 S/P hysterectomy 1985--vaginal hysterectomy with left oophorectomy performed for a uterine mass she was told that there was no cancer but there were some abnormal cells and it was recommended that she have chemotherapy for 6 weeks however she did only 2 weeks and then did not finish the rest of treatment. S/P left knee arthroscopy S/P tonsillectomy and adenoidectomy As a child S/P tubal ligation 1982-immediately . Family History Mother Heart disease Hypertension Ovarian cancer Diagnosed at age 34 Suicide Thyroid condition Uterine cancer Diagnosed at age 34, unsure of origin Father Heart disease Thyroid condition Sister Thyroid condition Family/Other Thyroid condition [place], granddaughter Denies family history of Colon cancer Diabetes Hyperlipidemia Breast cancer Social History Quit status (tobacco): has quit using tobacco Second hand smoke exposure: No Smoking risk assessment/counseling performed?: Yes Alcohol intake: former Desire information about alcohol rehabilitation?: No Counseling given: No Desire information about substance/drug rehabilitation?: No Counseling given: No Adopted: No Caregiver/support person: No Lives independently: Yes Household members: spouse Housing: House Marital status: Number of children: 2 Highest education level completed: Associate Degree: Occupational, Technical, Vocational Program service: Yes Current occupational status: employed Pets and animals: Yes History of recent travel: No Sexually active: Yes Current gender identity: Female Gricel/Mormon: Gnosticist Special gricel needs: No Agree to transfusion: No Vitals/I&O/Wt Last Vital Signs Temp 97.8 F 07/06/21 12:32 Pulse 62 07/06/21 12:32 Resp 16 07/06/21 12:32 BP 123/60 07/06/21 12:32 Pulse Ox 94 07/06/21 12:32 Physical Exam Narrative: Gen: morbidly obese woman sitting in bed in NAD HEENT/Neck: No JVD, No pallor or icterus RS: CTAB/L; No wheezing or rales CVS: S1, S2 regular, No murmur, rub or gallop MONORAIL CAR OPERATOR: AAOx3, No FND Ext: No edema or cyanosis Data : 07/06/21 06:16 07/06/21 06:16 A&P Assessment and plan (1) Chest pain: troponin flat, EKG with sinus rhythm, LAD and RBBB -mildly abnormal stress test with chest pain during stress test. -Multiple CAD risk factors of HTN, HLD, DM-2 and family h/o CAD -[facility] Risks and benefits were discussed with the patients. Possible complications of hematoma, perforation, SD, stroke, , renal failure, urgent bypass and pericardial effusion were reviewed with the patient as well. Status: Acute (2) Hypertension: Status: Acute (3) Hyperlipidemia: Status: Acute Qualifiers: Hyperlipidemia type: mixed hyperlipidemia Qualified Code(s): E78.2 - Mixed hyperlipidemia (4) Uncontrolled type 2 diabetes mellitus: [id number] Status: Acute Qualifiers: Glycemic state: with hyperglycemia Qualified Code(s): E11.65 - Type 2 diabetes mellitus with hyperglycemia (5) Morbid obesity with BMI of 45.0-49.9, adult: Status: Acute Consult Attestations Time Spent in Patient Care: 30 Coding Level of Care Code New Pt Acute Credit Risk Associate for Chg Fwd Patient Type New History Comprehensive Exam Comprehensive Medical Decision Making High Complexity Diagnoses Chest pain R07.9 Hypertension I10 Hyperlipidemia E78.2 Hyperlipidemia type: mixed hyperlipidemia Uncontrolled type 2 diabetes mellitus E11.65 Glycemic state: with hyperglycemia Morbid obesity with BMI of 45.0-49.9, adult E66.01; Z68.42
[2021-07-06] MEDS: aspirin 81 mg EC Tablet PO (17:02)
[2021-07-06 17:34] LABS: Glucose Point of Care 107 mg/dL (70-110)
--- NOTE | 2021-07-06 18:01 | NMCV_ITS ---
NM milan perf SPECT r/s* [id number] Randi Kay Age: 61 Gender: F : 1960 Exam Date: 07/06/2021 07:12 Ordering Phys: Shayne Payan MD Technologist: JARRET Juarez Exam Location: [facility] Indications: CHEST PAIN STRESS TEST [facility] IMAGE PROTOCOL Rest/Stress 1 Lexiscan Day Radiopharmaceutical Dose (mCi) Administration Site Administered by Rest: Tc-99m 11.0 IV JARRET Monterroso Sestamibi Stress:Tc-99m 33.0 IV JARRET Monterroso Sestamibi Rest: 06-Jul-2021 60 Discovery 630 Stress: 06-Jul-2021 30 Discovery 630 0.4mg Lexiscan. Supine position only as patient was unable to lay prone. SPECT RESULTS Technical Quality: Excellent Raw Data Analysis: Normal Image Corrections: No attenuation or motion correction applied Summed Stress Score: 4 Summed Rest Score: 5 Summed Difference Score: 0 PERFUSION FINDINGS Small sized perfusion abnormality of mild severity of mid inferolateral, mid anterolateral and apical lateral irvin with reversibility in apical lateral wall. FUNCTIONAL RESULTS (calculated via Gated SPECT) Stress Image LV EF (%): 67 Stress EDV (mL):125 TID: 1.14 Stress ESV (mL):41 FUNCTIONAL FINDINGS: The left ventricle is normal in size. Transient Ischemia Dilatation of 1.1. There is normal left ventricular systolic function. The left ventricular ejection fraction is normal with a value of 67%. There is normal left ventricular wall thickening with no regional wall motion abnormality. Normal end-diastolic and end-systolic volumes. IMPRESSIONS 1. Small sized partially reversible perfusion abnormality of mild severity of mid inferolateral, mid anterolateral and apical lateral irvin. 2. This may represent small area of ischemia in circumflex artery territory. However in absence of prone imaging attenuation artifact cannot be completely ruled out. 3. Overall left ventricular systolic function is normal without regional wall motion abnormalities, LVEF=67%. 4. No EKG changes with Lexiscan infusion. Refer to separate report for details. Rosa Fitzpatrick MD (Electronically Signed) Final Date: 06 July 2021 13:21 S
--- NOTE | 2021-07-06 18:01 | USCV_ITS ---
Randi Kay Age: 61 Gender: F : 1960 Exam Date: 07/06/2021 06:56 Ordering Phys: Shayne Payan MD Technologist: Paola Naylor Exam Location: [facility] [place] Indication: CHEST PAIN BP: 94 / 59 HR: 65 Rhythm: Sinus Technical Quality: Adequate MEASUREMENTS (Male / Female) Normal Values 2D ECHO LV Diastolic Diameter PLAX 4.8 cm 4.2 - 5.9 / 3.9 - 5.3 cm LV Systolic Diameter PLAX 3.0 cm IVS Diastolic Thickness 1.4 cm 0.6 - 1.0 / 0.6 - 0.9 cm IVS Systolic Thickness 2.0 cm LVPW Diastolic Thickness 1.4 cm 0.6 - 1.0 / 0.6 - 0.9 cm LVPW Systolic Thickness 2.1 cm LVOT Diameter 2.0 cm LV Ejection Fraction 2D Teich 68.0 % LV Ejection Fraction MOD 2C 70.1 % LV Ejection Fraction 2C AL 69.2 % LA Diameter 3.3 cm LA Width 3.8 cm LA Height 5.0 cm RA Width 3.4 cm RA Height 4.5 cm Aorta at Sinotubular Diameter 2.6 cm M-MODE Aortic Annulus Diameter 3.4 cm LA Ao Ratio MM 1.0 MV E Point Septal Separation 0.6 cm DOPPLER AV Peak Velocity 109.0 cm/s LVOT Peak Velocity 88.0 cm/s AV Area Cont Eq vti 2.6 cm squared AV Area Cont Eq pk 2.6 cm squared MV Peak Velocity 80.0 cm/s MV Area PHT 5.4 cm squared Mitral E to A Ratio 1.3 MV E' Velocity 81.0 cm/s TR Peak Velocity 181.8 cm/s TR Peak Gradient 13.2 mmHg TR Mean Velocity 168.2 cm/s TR Mean Gradient 13.1 mmHg TR Velocity Time Integral 79.9 cm PV Peak Velocity 83.0 cm/s RV Acceleration Time 0.1 s RV Ejection Time 0.3 s RV AcT/ET 0.5 FINDINGS Left Ventricle Normal left ventricular size, systolic function and upper normal wall thickness, with no regional wall motion abnormalities. Left ventricular ejection fraction is estimated at 60 %. Right Ventricle Normal right ventricular size and systolic function. Right ventricular systolic pressure 29 mmHg. Right Atrium Normal right atrial size. Left Atrium Normal left atrial size. Mitral Valve Structurally normal mitral valve. No mitral valve stenosis. Trace mitral valve regurgitation. Aortic Valve No aortic valve stenosis. No aortic valve regurgitation. Tricuspid Valve Structurally normal tricuspid valve. No tricuspid valve stenosis. Mild tricuspid valve regurgitation. Pulmonic Valve Pulmonic valve not well visualized. No pulmonary valve stenosis. Pericardium No pericardial effusion. Aorta Normal size aortic root and proximal ascending aorta. CONCLUSIONS 1. This is a technically difficult study. Ultrasound enhancing agent Optison was used per protocol. 2. Normal left ventricular size, systolic function and upper normal wall thickness, with no regional wall motion abnormalities. Left ventricular ejection fraction is estimated at 60 %. 3. Normal right ventricular size and systolic function. 4. Pulmonary artery pressure estimated at 29 mmHg. 5. No prior similar studies to compare. Rosa Fitzpatrick MD (Electronically Signed) Final Date: 06 July 2021 16:31 S
[2021-07-06] MEDS: enoxaparin 40 mg/0.4 mL Syringe SUBCUT (18:48)
[2021-07-06] MEDS: atorvastatin 40 mg Tablet 20 MG PO (22:03)
[2021-07-07] VITALS (12 sets, daily range): BP systolic 98–137; BP diastolic 58–92; PULSE 66–74; RESP 17–25; O2SAT 92–99
[2021-07-07 01:21] LABS: Adenovirus Not Detected (NOT DETECT); Chlamydia Pneumoniae Not Detected (NOT DETECT); Coronavirus 229E,HKU1,NL63,OC4 Not Detected (NOT DETECT); Human Metapneumovirus Not Detected (NOT DETECT); Human Rhinovirus/Enterovirus Not Detected (NOT DETECT); Influenza A Not Detected (NOT DETECT); Influenza A H1 Not Detected (NOT DETECT); Influenza A H1-2009 Not Detected (NOT DETECT); Influenza A H3 Not Detected (NOT DETECT); Influenza B Not Detected (NOT DETECT); Mycoplasma Pneumoniae Not Detected (NOT DETECT); Parainfluenza Virus Type 1 Not Detected (NOT DETECT); Parainfluenza Virus Type 2 Not Detected (NOT DETECT); Parainfluenza Virus Type 3 Not Detected (NOT DETECT); Parainfluenza Virus Type 4 Not Detected (NOT DETECT); Respiratory Syncytial Virus A Not Detected (NOT DETECT); Respiratory Syncytial Virus B Not Detected (NOT DETECT); SARS-COV-2 Not Detected (NOT DETECT)
[2021-07-07 03:50] LABS: Basophils # 0.1 10^3/uL (0.0-0.1); Basophils % 0.6 %; Eosinophils # 0.4 10^3/uL (0.0-0.8); Eosinophils % 4.7 %; Hematocrit 42.9 % (37.0-47.0); Hemoglobin 13.6 g/dL (11.5-15.3); Lymphocytes # 4.1 10^3/uL (0.8-4.8); Lymphocytes % 43.2 %; Mean Corpuscular HGB Conc 31.7 g/dL (30.0-36.0); Mean Corpuscular Hemoglobin 29.3 pg (28.0-34.0); Mean Corpuscular Volume 92.5 fl (81-99); Mean Platelet Volume 11.9 fL (7.4-10.4); Monocytes # 0.9 10^3/uL (0.2-0.9); Monocytes % 9.1 %; Neutrophils # 3.94 10^3/uL (1.8-7.7); Nucleated Red Blood Cells % 0 %; Platelet Count 209 10^3/cmm (130-400); Red Blood Count 4.64 10^6/uL (4.1-5.3); Red Cell Distribution Width 13.2 % (12.1-15.1); White Blood Count 9.4 10^3/uL (4.0-10.0)
[2021-07-07] MEDS: aspirin 81 mg Chew Tablet 324 MG PO (04:13)
[2021-07-07] MEDS: clopidogrel 300 mg Tablet PO (04:13)
[2021-07-07 04:15] LABS: Blood Urea Nitrogen 15 mg/dL (6-20); Calcium 9.5 mg/dL (8.5-10.5); Carbon Dioxide 19 mmol/L (22-29); Chloride 110 mmol/L (98-107); Glomerular Filtration Rate 73.4 mL/min (90-130); Glucose 103 mg/dL (65-115); Osmolality Calculated 295 mOsm/kg (285-295); Sodium 142 mmol/L (136-145)
[2021-07-07 04:17] LABS: Anion Gap 17.2 (5-19); Potassium 4.2 mmol/L (3.5-5.1)
--- NOTE | 2021-07-07 09:00 | XACV_ITS ---
Exam Room: [facility] Ht: 170 cm Wt: 132 kg BSA: 2.57 m2 Gender: Female : 1960 Any Known Allergies: Other Exam Priority: Routine Procedure(s): Procedure Description: Diagnostic procedure Procedure Description: Coronary Angiography Diagnostic Cath Status: Elective Diagnostic Findings * No disease noted in the Left Main, Left Anterior Descending, Right, or Circumflex coronary arteries. * Coronary angiography shows right dominance. Conclusions 1. No disease noted in the Left Main, Left Anterior Descending, Right, or Circumflex coronary arteries. Recommendations * Continue current medical management and risk factor modification. Pressures Phase:Rest AO : 96 / 77 ( 86 ) @ 9:02:00 AM 100 / 83 ( 92 ) @ 9:03:00 AM Clinical Evaluation EBL: 5mL-10mL Procedural Details Procedure Consent Obtained. Current Diagnosis : Chest Pain. Pre-Procedure Time Out. Identified patient by full name and date of as verbalized by the patient/guarantor. Does the consent match the physician's order: Yes. Accurate & Complete Informed Consent: Yes. Inpatient/Outpatient History & Physical on Chart: Yes. If H&P is completed, is and addenduem needed: No; If yes, is the addendum complete: N/A. Visualize and Verify Site with Patient/Guarantor: N/A. Relevant Radiology Images available: Yes. Pre-op teaching completed and patient verbalized understanding. The risks, benefits, and alternatives of sedation and/or procedure were discussed by physician. The patient agrees to continue. Procedure started. [facility] Clinical Fraility Score: 3: Managing Well. Recruiting Coordinator Indications: Suspected CAD. Correct patient, site and procedure confirmed by cath team. Current diagnosis: Chest Pain. PERRLA. Strong, equal hand refractory technician bilaterally. Lungs clear x 5 lobes. IV Site on Arrival: 20 gauge in the right anticubital. IV Fluids: 0.9% NaCl at KVO. 0 mL infused prior to laboratory machinist. Pre Procedural Pulses: bilateral dorsalis pedis was 2+. Pre Procedural Pulses: bilateral posterior tibial was 2+. Pre Procedural Pulses: bilateral radial was 2+. Oxygen started at 2liters/min via nasal canula. right groin was prepped with chloroprep then draped in the usual sterile fashion. right radial was prepped with chloroprep then draped in the usual sterile fashion. Baseline sample Acquired. HR: 0 BPM. Physician notified. Physician arrived. Mukul Waggoner scrubbing. Physician scrubbed in. Immediate Pre-Procedure Time Out. Correct Patient: Yes; Correct Procedure: Yes; Correct Site: Yes; Correct Patient Position: Yes; Correct Supplies: Yes; Dried Flammable Prep: Yes; Blood Products Available: N/A;. Lidocaine 1% infiltrated to the right radial. Arterial access obtained. A 5 malay TIG catheter in over wire. Multiple views taken of left coronary artery. Catheter redirected to the RCA. Multiple views taken of right coronary artery. Catheter removed over the standard wire. Physician scrubbed out. A TR Band was successful obtaining hemostatsis at the Right Radial artery insertion site. Arterial sheath flushed and connected to tranducer and pressure bag with heparinized saline. Post Procedure: Pulses reassessed and unchanged. PERRLA. Strong, equal hand refractory technician bilaterally. No VTE prophylaxis required. Medication's Wasted: Lidocaine 1% = 18 mL. Medication's Wasted: Nitro = 49.8 mg. Medication's Wasted: Heparin = 1000 units. Total IV fluids: 50 mL. Complications: None. Estimated blood loss: 5mL-10mL. Responsiveness - Normal response to verbal stimuli; alert and oriented, PERRLA. Airway - Unaffected, no intervention required; spontaneous ventilation. Circulation: W/N/L, pulses unchanged. Nausea/Vomiting: No. Procedure completed. Vital chart was stopped. Patient transferred by wheelchair to 1st floor. Access Site Site: Right Radial artery Sheath Size: 6 Fr Hemostasis Method: TR Band Hemostasis Success: Successful Procedure Medications Start: 10:35 AM Stop: 10:35 AM Medication: Versed Amount: 1 mg Route: I.V. Start: 10:35 AM Stop: 10:35 AM Medication: Fentanyl Amount: 50 mcg Route: I.V. Start: 10:49 AM Stop: 10:49 AM Medication: Versed Amount: 1 mg Route: I.V. Start: 10:49 AM Stop: 10:49 AM Medication: Fentanyl Amount: 50 mcg Route: I.V. Start: 10:58 AM Stop: 10:58 AM Medication: Versed Amount: 1 mg Route: I.V. Start: 10:58 AM Stop: 10:58 AM Medication: Fentanyl Amount: 50 mcg Route: I.V. Start: 10:59 AM Stop: 10:59 AM Medication: Nitrogylcerin Amount: 200 mcg Route: I.A. Start: 11:05 AM Stop: 11:05 AM Medication: Heparin Amount: 5000 units Route: I.V. Start: 11:05 AM Stop: 11:05 AM Medication: Versed Amount: 1 mg Route: I.V. Start: 11:05 AM Stop: 11:05 AM Medication: Fentanyl Amount: 50 mcg Route: I.V. I, the attending physician, have reviewed and verified all procedure medications. Yes, all medications given per verbal order History/Risk Factors Hypertension: Yes Dyslipidemia: No Peripheral Arterial Disease (PAD): No Myocardial Infarction (UT): No Obesity: Yes Renal Disease: No Tobacco Use: Former Prior Interventions PCI: No CABG: No Valve Surgery: No Report Signatures Finalized by Elis Brandon MD on 07/17/2021 02:36 PM
[2021-07-07] MEDS: BuSPIRONE 10 mg Tablet 15 MG PO ×2 (09:08→14:16)
[2021-07-07] MEDS: duloxetine 30 mg Capsule 90 MG PO (09:08)
[2021-07-07] MEDS: pregabalin 150 mg Capsule 300 MG PO (09:08)
[2021-07-07] MEDS: prazosin 1 mg Capsule 2 MG PO ×2 (09:08→14:16)
[2021-07-07] MEDS: pantoprazole DR 40 mg Tablet PO (09:09)
[2021-07-07] MEDS: aspirin 81 mg EC Tablet PO (09:09)
[2021-07-07] MEDS: lisinopril 10 mg Tablet PO (09:09)
[2021-07-07] MEDS: topiramate 100 mg Tablet PO (09:09)
[2021-07-07] MEDS: insulin lispro 100 unit/1 mL SUBCUT (09:11)
[2021-07-07] MEDS: diphenhydrAMINE 50 mg Capsule PO (09:16)
[2021-07-07] MEDS: sodium chloride 0.9% 1,000 ML 50 ML IV (09:18)
--- NOTE | 2021-07-07 10:13 | W.PM.OPSUD ---
Surgery/Procedure H&P Update DATE OF PROCEDURE: July 07, 2021 DATE H&P PERFORMED: 07/06/21 PRIMARY INDICATION FOR PROCEDURE: chest pain/abnormal stress test PLANNED PROCEDURE: Operation Date: 07/07/21 10:00 Proposed Procedures p Cardiac Catheterization(Not Applicable) - Elis Brandon MD OTHER PERTINENT EXAM FINDINGS: Patient has been patient explained all risk benefit and already for the procedure. Patient understand risk for stroke major minor bleed urgent emergent bypass surgery hematoma bruising vascular injury. She is a candidate for DAPT. We will proceed with AIRWAY EVAL/ANESTHESIA PLAN: ASA II and Risks, benefits & alternatives of sedation and/or procedure discussed
--- NOTE | 2021-07-07 11:06 | P.PN_ITS ---
Subjective Subjective: No acute events overnight. Denies any further chest pain or chest pressure. Plan for cardiac angiogram with cardiology today. Has remained hemodynamically stable. Blood pressure better controlled. Vitals/I&O/Wt Last Vital Signs Temp 97.8 F 07/06/21 12:32 Pulse 74 07/07/21 07:44 Resp 17 07/07/21 07:44 BP 98/58 07/07/21 07:38 Pulse Ox 98 07/07/21 07:44 07/06/21 07/07/21 07/07/21 22:59 06:59 14:59 Intake Total 500 / 500 Output Total 900 / 900 Balance -400 / -400 Weight last 48 hrs Weight 131.995 kg Weight 133.764 kg Weight 133.764 kg Physical Exam Narrative: General: No acute distress, AO x3, morbidly obese HEENT: PERRLA, pupils bilaterally equal and reactive Chest: Normal vesicular breath sounds, no added sounds, equal good air entry bilaterally CVS: S1-S2 regular, no murmurs, no tachycardia, no gallops, no rubs Abdomen: Soft, nontender, no organomegaly, bowel sounds present Neuro: No focal deficits, no facial deformity, AO x3, power 5/5 in all limbs Data : 07/07/21 02:27 07/07/21 02:27 A&P Assessment and plan (1) Chest pain: Status: Acute (2) Positive cardiac stress test: Status: Acute (3) Diabetic neuropathy: Status: Acute Qualifiers: Diabetes mellitus type: type 2 Diabetes mellitus complication detail: diabetic polyneuropathy Qualified Code(s): E11.42 - Type 2 diabetes mellitus with diabetic polyneuropathy (4) Uncontrolled type 2 diabetes mellitus: Status: Acute Qualifiers: Glycemic state: with hyperglycemia Qualified Code(s): E11.65 - Type 2 diabetes mellitus with hyperglycemia (5) Hypertension: Status: Acute (6) Anxiety and depression: Status: Acute (7) GERD (gastroesophageal reflux disease): Status: Acute (8) Hyperlipidemia: Status: Acute Qualifiers: Hyperlipidemia type: mixed hyperlipidemia Qualified Code(s): E78.2 - Mixed hyperlipidemia Plan Chest pain under evaluation: Patient has history of uncontrolled diabetes, hype rtension with significant family history of heart problems. Positive stress test. A1c 7.3, lipid panel appreciated. Echocardiogram awaited. Continue with aspirin 81 mg, atorvastatin 20 mg daily. Cardiac angiogram today. Further treatment as per findings from angiography Hypertension: Goal blood pressure less than 140/90 mmHg. Better control. Continue with lisinopril 10 mg daily and metoprolol 25 mg twice daily. Type 2 diabetes mellitus: Insulin sliding scale at moderate dose protocol. Full code. Cardiac carb consistent diet. N.p.o. after midnight. Lovenox for DVT prophylaxis. Attestations Medical Necessity Statement*: Requires further hospitalization for management of chest pain under evaluation, positive stress test as patient requires cardiac angiogram for further evaluation and management. Time Spent in Patient Care: Greater than 35 minutes Coding Level of Care Code Acute Water And Sewer Systems Superintendent for [facility] Fwd Diagnoses Chest pain R07.9 Positive cardiac stress test R94.39 Diabetic neuropathy E11.42 Diabetes mellitus type: type 2 Diabetes mellitus complication detail: diabetic polyneuropathy Uncontrolled type 2 diabetes mellitus E11.65 Glycemic state: with hyperglycemia Hypertension I10 Anxiety and depression F41.9; F32.9 GERD (gastroesophageal reflux disease) K21.9 Hyperlipidemia E78.2 Hyperlipidemia type: mixed hyperlipidemia
--- NOTE | 2021-07-07 14:15 | P.DS_ITS ---
Discharge Providers Date of Admission: 07/06/21 14:04 Date of Discharge: July 07, 2021 Attending Provider at Admission: Shayne Payan MD Attending Provider at Discharge: Shayne Payan MD Consults: Cardiology: Dr. Fitzpatrick Primary Care Provider: DELMA Lua Diagnoses at Discharge Discharge Diagnosis (1) Chest pain: Status: Acute (2) Positive cardiac stress test: Status: Acute (3) Diabetic neuropathy: Status: Acute Qualifiers: Diabetes mellitus complication detail: diabetic polyneuropathy Diabetes mellitus type: type 2 Qualified Code(s): E11.42 - Type 2 diabetes mellitus with diabetic polyneuropathy (4) Uncontrolled type 2 diabetes mellitus: Status: Acute Qualifiers: Glycemic state: with hyperglycemia Qualified Code(s): E11.65 - Type 2 d iabetes mellitus with hyperglycemia (5) Hypertension: Status: Acute Permanent problem details: Diagnosed in 2018 managed by primary care provider nurse jami Taveras (6) Anxiety and depression: Status: Acute Permanent problem details: Diagnosed in the and controlled well on medication at this time managed by primary care provider nurse jami Taveras. (7) GERD (gastroesophageal reflux disease): Status: Acute Permanent problem details: Controlled on medication (8) Hyperlipidemia: Status: Acute Qualifiers: Hyperlipidemia type: mixed hyperlipidemia Qualified Code(s): E78.2 - Mixed hyperlipidemia Reason for Visit Reason for Visit: CHEST PRESSURE Hospital Course Hospital Course Randi Kay is a 61 year old female with past medical history of hypertension, type 2 diabetes mellitus on insulin with diabetic neuropathy,HLD, OA, former smoker and GERD presented for evaluation of chest pain. Chest pain initially for last 4 days burning and felt like heart burn ; later it changed to crushing in nature with some radiation to left shoulder. No N/V, palpitation or diaphoresis. She has family h/o CAD. had no significant ST-T wave changes, negative troponins and echo with no RWMA. Stress test with small partially reversible ischemia in lateral wall with symptoms of chest pain during stress test.? She continues to have chest pain on and off during hospitalization. Cardiology was consulted. Patient underwent cardiac angiogram on 07/07 which was consistent with nonobstructive CAD. Patient's antihypertensives were adjusted. She is been discharged hemodynamically stable condition on adjusted antihypertensives advised to follow-up with her primary care provider within next 2 weeks. She is advised to make sure she is sitting up at least 45 minutes to 1 hour. She is advised to at least 15 to 20 pounds of weight. Physical Exam Narrative: General: No acute distress, AO x3, morbidly obese HEENT: PERRLA, pupils bilaterally equal and reactive Chest: Normal vesicular breath sounds, no added sounds, equal good air entry bilaterally CVS: S1-S2 regular, no murmurs, no tachycardia, no gallops, no rubs Abdomen: Soft, nontender, no organomegaly, bowel sounds present Neuro: No focal deficits, no facial deformity, AO x3, power 5/5 in all limbs Discharge Data Studies Completed and Pending Completed Studies During Hospitalization Category Date Time Status Sestamibi Stress Test Request Routine Exams 07/05/21 18:01 Completed XR chest 1V portable [id number] Stat Exams 07/05/21 15:55 Completed NM milan perf SPECT r/s* [id number] Routine Nuc Med 07/06/21 18:01 Completed CV. echo wo/w contrast [id number] Routine Ultrasound 07/06/21 18:01 Completed Pending at discharge Category Date Time Status SIDE PIECE COVERER request for service Routine Exams 07/07/21 09:00 Taken Radiology Impressions Chest X-Ray 07/05/21 15:55 IMPRESSION: No acute cardiopulmonary abnormality. Echocardiogram: CONCLUSIONS ?1.? This is a technically difficult study.? Ultrasound enhancing?agent Optison was used per protocol. ?2.? Normal left ventricular size, systolic function and upper?normal wall thickness, with no regional wall motion?abnormalities. Left ventricular ejection fraction is estimated?at 60 %. ?3.? Normal right ventricular size and systolic function. ?4.? Pulmonary artery pressure estimated at 29 mmHg. ?5. No prior similar studies to compare. ?Rosa Fitzpatrick MD ?(Electronically Signed) ?Final Date:? ? ? 06 July 2021 ? 16:31 Laboratory Results WBC 9.4 10^3/uL (4.0-10.0) 07/07/21 02:27 RBC 4.64 10^6/uL (4.1-5.3) 07/07/21 02:27 Hgb 13.6 g/dL (11.5-15.3) 07/07/21 02:27 Hct 42.9 % (37.0-47.0) 07/07/21 02: MCV 92.5 fl (81-99) 07/07/21 02: MCH 29.3 pg (28.0-34.0) 07/07/21 02: MCHC 31.7 g/dL (30.0-36.0) 07/07/21 02: RDW 13.2 % (12.1-15.1) 07/07/21 02:27 Plt Count 209 10^3/cmm (130-400) 07/07/21 02: MPV 11.9 fL (7.4-10.4) H 07/07/21 02:27 Neut % (Auto) 42.0 % 07/07/21 02: Lymph % (Auto) 43.2 % 07/07/21 02: [place] % (Auto) 9.1 % 07/07/21 02: Eos % (Auto) 4.7 % 07/07/21 02: Baso % (Auto) 0.6 % 07/07/21 02: Neut # (Auto) 3.94 10^3/uL (1.8-7.7) 07/07/21 02: Lymph # (Auto) 4.1 10^3/uL (0.8-4.8) 07/07/21 02: [place] # (Auto) 0.9 10^3/uL (0.2-0.9) 07/07/21 02: Eos # (Auto) 0.4 10^3/uL (0.0-0.8) 07/07/21 02: Baso # (Auto) 0.1 10^3/uL (0.0-0.1) 07/07/21 02:27 Nucleated RBC % (auto) 0 % 07/07/21 02: Nucleated RBCs # 0.0 /100WBC 07/07/21 02: D-Dimer 0.56 ug/mIFEU (0-0.59) 07/05/21 17:23 Sodium 142 mmol/L (136-145) 07/07/21 02:27 Potassium 4.2 mmol/L (3.5-5.1) 07/07/21 02:27 Chloride 110 mmol/L (98-107) H 07/07/21 02:27 Carbon Dioxide 19 mmol/L (22-29) L 07/07/21 02:27 Anion Gap 17.2 (5-19) 07/07/21 02:27 BUN 15 mg/dL (6-20) 07/07/21 02:27 Creatinine 0.8 mg/dL (0.5-0.9) 07/07/21 02:27 GFR Calculation 73.4 mL/min (90-130) L 07/07/21 02:27 Glucose 103 mg/dL (65-115) 07/07/21 02:27 POC Glucose 107 mg/dL (70-110) 07/06/21 17:30 Estimat Average Glucose 163 07/06/21 06:16 Hemoglobin A1c 7.3 % (4.0-6.0) H 07/06/21 06:16 Calculated Osmolality 295 mOsm/kg (285-295) 07/07/21 02:27 Calcium 9.5 mg/dL (8.5-10.5) 07/07/21 02:27 Phosphorus 4.1 mg/dL (2.5-4.5) 07/06/21 06:16 Magnesium 1.9 mg/dL (1.7-2.3) 07/06/21 06:16 Iron 77 ug/dL (37-145) 07/05/21 15:25 TIBC 270 mcg/dl 07/05/21 15:25 % Saturation 28.5 % (20-50) 07/05/21 15:25 Unsat Iron Binding 193 ug/dL (112-347) 07/05/21 15:25 Total Bilirubin 0.4 mg/dL (0.15-1.2) 07/06/21 06:16 AST 25 U/L (0-32) 07/06/21 06:16 ALT 20 U/L (0-33) 07/06/21 06:16 Alkaline Phosphatase 118 IU/L (35-105) H 07/06/21 06:16 Troponin T Baseline 8 ng/L (0-10) 07/05/21 15:25 Troponin T 120 Minute 6.34 ng/L (0-10) 07/05/21 17:23 Delta Troponin T -1.66 ABS# (0-10) L 07/05/21 17:23 Troponin T Hi Sens 6Hr 11.35 ng/L (0-10) H 07/05/21 21:16 Troponin T Hi Sens 6Hr Delta 3.35 ng/L (0-12) 07/05/21 21:16 Total Protein 6.1 g/dL (6.6-8.7) L 07/06/21 06:16 Albumin 3.5 g/dL (3.5-5.2) 07/06/21 06:16 Globulin 2.6 g/dL (1.3-4.6) 07/06/21 06:16 Triglycerides 146 mg/dL (0-150) 07/06/21 06:16 Cholesterol 138 mg/dL (0-200) 07/06/21 06:16 LDL Cholesterol, Calc 64 mg/dL (50-129) 07/06/21 06:16 Total VLDL Cholesterol 29 mg/dL (0-30) 07/06/21 06:16 HDL Cholesterol 45 mg/dL (60-100) L 07/06/21 06:16 Cholesterol/HDL Ratio 3.07 mg/dL (0.0-4.40) 07/06/21 06:16 TSH 1.26 uIU/mL (0.27-4.20) 07/05/21 15:25 TSH Cancelled 07/05/21 15:25 Coronavirus 229E (PCR) Not detected (NOT DETECT) 07/06/21 22:30 SARS-CoV-2 (PCR) Not detected (NOT DETECT) 07/06/21 22:30 SARS-CoV-2 Ag (Rapid) Cancelled 07/06/21 22:30 Vitals Last Vital Signs Temp 97.8 F 07/06/21 12:32 Pulse 73 07/07/21 12:00 Resp 18 07/07/21 12:00 BP 124/71 07/07/21 12:00 Pulse Ox 92 07/07/21 12:00 Discharge Plan Discharge Patient Disposition: Home Condition: Stable Prescriptions: New Adult Aspirin Regimen 81 mg tablet,delayed release (DR/EC) 81 mg PO DAILY Qty: 30 0RF lisinopril 10 mg Tablet 10 mg PO DAILY Qty: 30 0RF metoprolol tartrate 25 mg Tablet 25 mg PO BID@0900,2100 Qty: 60 0RF Continued Protonix [address] for susp in packet 40 mg PO DAILY 0RF pregabalin [Lyrica] 75 mg capsule 300 mg PO BID 0RF cholecalciferol (vitamin D3) 100 mcg (4,000 unit) tablet 100 mcg PO DAILY 0RF topiramate [Topamax] 50 mg tablet 100 mg PO BID 0RF prazosin 2 mg capsule 2 mg PO TID 0RF Rx Instructions: 2 mg TID and 6 mg at bedtime albuterol sulfate [Ventolin HFA] 90 mcg/actuation HFA aerosol inhaler 2 puff inhalation Q6H PRN (Reason: shortness of breath or wheezing) Qty: 8.5 0RF buspirone 30 mg tablet 15 mg PO TID 0RF duloxetine [Cymbalta] 60 mg capsule,delayed release(DR/EC) 90 mg PO DAILY 0RF alprazolam [Xanax] 0.25 mg tablet 0.25 mg PO DAILY PRN (Reason: panic attack(s)) 0RF (DME) Custom Molded Orthotics See Rx Instructions .Route .MEDSUPPLY Qty: 1 0RF Rx Instructions: As directed ([facility] [place]) Night splint to the right See Rx Instructions .Route .MEDSUPPLY Qty: 1 0RF Rx Instructions: As directed ([facility] [place]) Dexcom G6 Integration Manager Misc See Rx Instructions .Route Qty: 1 0RF Rx Instructions: Check BS 4 times a day. (DME) Dexcom G6 Sensor Device See Rx Instructions .Route Qty: 3 3RF Rx Instructions: As directed ([facility] [place]) Dexcom G6 Transmitter Device See Rx Instructions .Route Qty: 1 3RF Rx Instructions: As directed Ozempic 0.25 mg or 0.5 mg(2 mg/1.5 mL) pen injector 1 mg SUBCUT .WEEKLY Qty: 24 3RF Rx Instructions: Inject 1 mg subcut weekly. hydrocodone-acetaminophen 5-325 mg tablet 1 tab PO Q6H PRN (Reason: pain) Qty: 14 0RF Novolog Flexpen U-100 Insulin 100 unit/mL (3 mL) Insulin Pen See Rx Instructions .ROUTE .COMPLEX 0RF Rx Instructions: 5 unit subcutaneously BEFORE EACH MEAL PLUS SLIDING SCALE Discontinued spironolactone [Aldactone] 25 mg tablet 25 mg PO DAILY 0RF amlodipine 10 mg tablet 10 mg PO DAILY 0RF Discharge Orders: Discharge Order (Routine); Ordered 07/07/21 Ordered By: Shayne Payan Referrals: Elana Gould FNP [Nurse Practitioner] - (Please follow-up with Elana Gould on at 8:15A.M.If you have any questions or need to reschedule. Please call ) Anju Taveras FNP [Primary Care Provider] - 2 weeks (Please follow-up with Anju Taveras on at 9:00A.M. If you have any questions or need to reschedule. Please call [phone]) Rosa Fitzpatrick MD [Physician] - (Please follow-up with Dr. Fiztpatrick on August 11 at 11:00A.M. If you have any questions or need to reschedule. Please call ) Discharge Diet: Cardiac and Diabetic Discharge Activity: Resume usual activity and Increase activity as tolerated Patient Instructions: Metoprolol (By mouth), Lisinopril (By mouth), Aspirin (By mouth), Heart Catheterization (DC), Chest Pain Stoplight, Opioid Safety, Post Angiogram Home Care Instructions Activity Restrictions/Additional Instructions: Follow-up with the primary care provider within next 2 weeks. Take lisinopril and metoprolol as directed. Stop amlodipine and spironolactone. Please try to loose at least 15-25 lbs of body weight. Please try and be sitting or walking for at least 45 minutes to 1 hour post meals. Discharge Attestations Time Spent in Discharge Care*: greater than 30 min Specific Discharge Activities: educating patient, discussing with pcp/other providers, discussing with human services case manager/social workers/dc planners, doc umenting/other paperwork and evaluating patient/reviewing data Status at Discharge: Cognitive status at discharge: cognitively intact , Behavioral status at discharge: cooperative , Functional status at discharge: independent ambulation , Overall status at discharge: patient is back to baseline Quality Metrics Clinical Quality Measures [ No reported AMI, CVA or VTE this stay] Coding Level of Care Code Acute Chg FW DC note Diagnoses Chest pain R07.9 Positive cardiac stress test R94.39 Diabetic neuropathy E11.42 Diabetes mellitus complication detail: diabetic polyneuropathy Diabetes mellitus type: type 2 Uncontrolled type 2 diabetes mellitus E11.65 Glycemic state: with hyperglycemia Hypertension I10 Anxiety and depression F41.9; F32.9 GERD (gastroesophageal reflux disease) K21.9 Hyperlipidemia E78.2 Hyperlipidemia type: mixed hyperlipidemia
--- NOTE | 2021-07-07 14:46 | PC.PHAR ---
Pharmacy discharge counseling was offered today 07/07/21 @ 6161.
--- NOTE | 2021-07-07 16:29 | PC.NURSE ---
TR band removed per protocol. Gauze and tegaderm placed at insertion site, noted to be free of hematoma. IV removed, catheter intact. Pressure dressing applied, patient tolerated well. Patient given verbal and written discharge instructions by this nurse, daughter noted to be at bedside at time of education. Verbal understanding given by both patient and daughter. Patient wheeled to POV accompanied by daughter, notified of discharge as well. Patient tolerated transfer well.
--- NOTE | 2021-07-07 16:34 | PC.NURSE ---
Pharmacy meds to bed at 1625 prior to discharge per patient's request.
== END 2021-07-07 16:38 | disposition home or self-care (01) | DRG 287 ==
LOC: ER 17:12 → ER IP 19:58 → CSU 07-06 23:06
PROVIDERS: Internal Medicine Cardiovascular Disease; Admitting Provider Student in an Organized Health Care Education/Training Program; Emergency Provider Emergency Medicine; PCP Nurse Practitioner; Visit Provider Student in an Organized Health Care Education/Training Program
PROC: B211YZZ Fluoroscopy of Multiple Coronary Arteries using Other Contrast (ICD-10-PCS; principal; 2021-07-07 10:00)
DX: R07.9 Chest pain, unspecified (principal); Z68.42 Body mass index [BMI] 45.0-49.9, adult; E66.01 Morbid (severe) obesity due to excess calories; E11.40 Type 2 diabetes mellitus with diabetic neuropathy, unspecified; E11.65 Type 2 diabetes mellitus with hyperglycemia; I10 Essential (primary) hypertension; F41.8 Other specified anxiety disorders; G89.29 Other chronic pain; M54.9 Dorsalgia, unspecified; K21.9 Gastro-esophageal reflux disease without esophagitis; F43.10 Post-traumatic stress disorder, unspecified; Z79.4 Long term (current) use of insulin; Z82.49 Family history of ischemic heart disease and other diseases of the circulatory system; Z87.891 Personal history of nicotine dependence; E78.2 Mixed hyperlipidemia; R94.39 Abnormal result of other cardiovascular function study; I25.10 Atherosclerotic heart disease of native coronary artery without angina pectoris
CPT/HCPCS: 36415; 36416; 71045; 78452; 80048; 80053; 80061; 82962; 83036; 83540; 83550; 83735; 84100; 84443; 84484; 85025; 85378; 87426; 87635; 93005; 93017; 93306; 93454; 94664; 96372; A9500; C1769; C1887; C1894; C8929; G0378; J1644; J1650; J1815; J2250; J2270; J2785; J3010; J3490; J7030; Q0163; Q9956; Q9967

== ENCOUNTER → 2021-07-19 11:37 | Outpatient (BNVA) | payer OTHER, SELFPAY | PROVIDERS: PCP Nurse Practitioner; Visit Provider Specialist | DX: M17.12 Unilateral primary osteoarthritis, left knee (principal); E11.59 Type 2 diabetes mellitus with other circulatory complications; E11.65 Type 2 diabetes mellitus with hyperglycemia; Z87.891 Personal history of nicotine dependence; E11.42 Type 2 diabetes mellitus with diabetic polyneuropathy; I25.10 Atherosclerotic heart disease of native coronary artery without angina pectoris; E66.01 Morbid (severe) obesity due to excess calories; Z68.42 Body mass index [BMI] 45.0-49.9, adult; Z79.4 Long term (current) use of insulin | CPT/HCPCS: 73560; 73565; 99214; 99215 ==

== ENCOUNTER → 2021-07-27 10:58 | Outpatient (BNVA) | payer OTHER, SELFPAY | PROVIDERS: PCP Nurse Practitioner; Referring Provider Nurse Practitioner; Visit Provider Surgery | DX: Z11.52 Encounter for screening for COVID-19 (principal) | CPT/HCPCS: 87635 ==

== ENCOUNTER 2021-08-21 18:10 | Emergency (ER) | payer OTHER, BC, SELFPAY ==
[2021-08-21 18:21] VITALS: BP 120/70; PULSE 58; RESP 16; TEMP 36.8; O2SAT 99; BMI 40.2
--- NOTE | 2021-08-21 18:33 | ED_ITS ---
HPI - Eye Problem General: Chief complaint: Eye Problems Stated complaint: co2 in RT eye Time Seen by Provider: 08/21/21 18:33 History of Present Illness: Patient was helping her grandson changes CO2 cartridge on his BB gun. When tightening the cartridge into place it sprayed out CO2 which hit her in the right eye. Patient reports pain and discomfort to the right eye. Patient is able to see from the eye but is light sensitive. chief complaint: eye injury Onset (ago): hour(s) Onset description: sudden Duration: constant Location: right eye Eye Symptoms: burning and pain Place: home Mechanism: chemical exposure (Chemical EXPOSURE) Associated symptoms: Denies fever(s) Review of Systems General: Reports: 10 or more systems reviewed and unremarkable except in HPI and below Const: Denies: fever(s) Eyes: Reports: photophobia and eye discomfort Card: Denies: chest pain Resp: Denies: dyspnea [facility] ED PFSH: Medical History Anxiety and depression Diagnosed in the and controlled well on medication at this time managed by primary care provider nurse practitioner Nitin. Chronic back pain Associated with neuropathy. Takes Lyrica for the neuropathy. Does take hydrocodone as needed for pain. Coronary artery disease due to type 2 diabetes mellitus Diabetic neuropathy GERD (gastroesophageal reflux disease) Controlled on medication History of coronary angiogram 06/2021 Hyperlipidemia Hypertension Diagnosed in 2018 managed by primary care provider nurse practitioner Nitin Metatarsalgia of both feet Morbid obesity with BMI of 45.0-49.9, adult Post traumatic stress disorder (PTSD) Prinzmetal angina Uncontrolled type 2 diabetes mellitus Surgical History H/O esophagogastroduodenoscopy History of back surgery Pain pump insertion, removed in 2014 History of surgery neck lipoma removal- Hx of breast surgery ductectomy from the left breast done in her late 30s Hx of oophorectomy 1980---right lower quadrant incision-right ovary and appendix were removed w rashmi she presented with pain to the emergency room S/P appendectomy 1980-right lower quadrant incision, right ovary and appendix were removed. S/P cholecystectomy Laparoscopic procedure performed in 1992 S/P hysterectomy 1985--vaginal hysterectomy with left oophorectomy performed for a uterine mass she was told that there was no cancer but there were some abnormal cells and it was recommended that she have chemotherapy for 6 weeks however she did only 2 weeks and then did not finish the rest of treatment. S/P left knee arthroscopy S/P tonsillectomy and adenoidectomy As a child S/P tubal ligation 1982-immediately . Family History Mother Heart disease Hypertension Ovarian cancer Diagnosed at age 34 Suicide Thyroid condition Uterine cancer Diagnosed at age 34, unsure of origin Father Heart disease Thyroid condition Sister Thyroid condition Family/Other Thyroid condition [place], granddaughter Denies family history of Colon cancer Diabetes Hyperlipidemia Breast cancer Social History Smoking and tobacco status: former smoker Quit status (tobacco): has quit using tobacco Second hand smoke exposure: No Smoking risk assessment/counseling performed?: Yes Alcohol intake: former Desire information about alcohol rehabilitation?: No Counseling given: No Desire information about substance/drug rehabilitation?: No Counseling given: No Adopted: No Caregiver/support person: No Lives independently: Yes Household members: spouse Housing: House Marital status: Number of children: 2 Highest education level completed: Associate Degree: Occupational, Technical, Vocational Program service: Yes Current occupational status: employed Pets and animals: Yes History of recent travel: No Sexually active: Yes Current gender identity: Female Gricel/Voodoo: Jain Special gricel needs: No Agree to transfusion: No Physical Exam Const: COMMON NORMALS: no acute distress HENMT: COMMON NORMALS: normocephalic HEAD & SCALP: normocephalic Eye: GENERAL EYE: appearance normal, both eyes and all related structures and normal light reflex VISUAL ACUITY: Yes visual acuity right eye (decreased) VISUAL JEOL: No peripheral vision loss ALIGNMENT: Yes alignment normal PERIORBITAL: periorbital findings normal DIRECT OPHTHALMOSCOPY: Yes normal light reflex Neck/C-Spine: COMMON NORMALS: full ROM Resp: COMMON NORMALS: normal respiratory effort and clear to auscultation bilaterally AUSCULTATION: clear to auscultation bilaterally Cardio: COMMON NORMALS: regular rate and regular rhythm RATE: regular rate RHYTHM: regular rhythm : COMMON NORMALS: Yes no CVA tenderness BLADDER/KIDNEY EXAM: Yes no CVA tenderness Back/Pelvis: COMMON NORMALS: no CVA tenderness Extremity: COMMON NORMALS: normal to inspection Course Vital Signs: Vital signs: Vital Signs Temperature 98.3 F 08/21/21 18:21 Pulse Rate 58 L 08/21/21 18:21 Respiratory Rate 16 08/21/21 18:21 Blood Pressure 120/70 08/21/21 18:21 Pulse Oximetry 99 08/21/21 18:21 MDM - Eye Problem Medical Decision Making 61-year-old female comes in today with right eye pain after getting CO2 propellant sprayed into her eye. It was not a direct spray. Patient does report some burning to the eye. On exam there no obvious abrasion to the eye. Patient does have some pain and discomfort to the eye. Pupils were equal and reactive. Mild redness is noted to the cornea. Differential diagnosis includes corneal abrasion, chemical exposure, corneal penetration. No sign of severe serious injury is noted. Patient had relief after use of tetracaine. Suspect a superficial abrasion or may be chemical irritation to the propellant. We will cover patient with antibiotic eyedrops and recommend follow-up in 3 days for recheck. Patient reported understanding agreed to plan. Discharge Plan Discharge Patient Disposition: Home Clinical Impression: Corneal abrasion Qualifiers: Encounter type: initial encounter Laterality: right Qualified Code(s): S05.01XA - Injury of conjunctiva and corneal abrasion without foreign body, right eye, initial encounter Condition: Stable Prescriptions: No Action pregabalin [Lyrica] 75 mg capsule 300 mg PO BID 0RF cholecalciferol (vitamin D3) 100 mcg (4,000 unit) tablet 100 mcg PO DAILY 0RF topiramate [Topamax] 50 mg tablet 100 mg PO BID 0RF prazosin 2 mg capsule 2 mg PO TID 0RF Rx Instructions: 2 mg TID and 6 mg at bedtime albuterol sulfate [Ventolin HFA] 90 mcg/actuation HFA aerosol inhaler 2 puff inhalation Q6H PRN (Reason: shortness of breath or wheezing) Qty: 8.5 0RF buspirone 30 mg tablet 15 mg PO TID 0RF duloxetine [Cymbalta] 60 mg capsule,delayed release(DR/EC) 90 mg PO DAILY 0RF nitroglycerin 0.4 mg tablet, sublingual 0.4 mg sublingual Q5M PRN (Reason: Chest Pain) 0RF Rx Instructions: do not exceed 3 doses per episode mecobalamin (vitamin B12) 10,000 mcg recon soln IM 0RF tizanidine 4 mg tablet 4 mg PO BID PRN (Reason: Anxiety) 0RF metoprolol tartrate 25 mg tablet 12.5 mg PO BID Qty: 60 0RF omeprazole 40 mg capsule,delayed release(DR/EC) 40 mg PO DAILY 0RF amlodipine 10 mg tablet 5 mg PO DAILY Qty: 90 3RF lisinopril 2.5 mg tablet 2.5 mg PO DAILY Qty: 90 2RF alprazolam [Xanax] 0.25 mg tablet 0.25 mg PO DAILY PRN (Reason: panic attack(s)) 0RF (DME) Custom Molded Orthotics See Rx Instructions .Route .MEDSUPPLY Qty: 1 0RF Rx Instructions: As directed (DME) Night splint to the right See Rx Instructions .Route .MEDSUPPLY Qty: 1 0RF Rx Instructions: As directed (DME) Dexcom G6 Business Management Specialist Misc See Rx Instructions .Route Qty: 1 0RF Rx Instructions: Check BS 4 times a day. (DME) Dexcom G6 Sensor Device See Rx Instructions .Route Qty: 3 3RF Rx Instructions: As directed [place] Dexcom G6 Transmitter Device See Rx Instructions .Route Qty: 1 3RF Rx Instructions: As directed Ozempic 0.25 mg or 0.5 mg(2 mg/1.5 mL) pen injector 1 mg SUBCUT .WEEKLY Qty: 24 3RF Rx Instructions: Inject 1 mg subcut weekly. hydrocodone-acetaminophen 5-325 mg tablet 1 tab PO Q6H PRN (Reason: pain) Qty: 14 0RF insulin aspart U-100 [Novolog Flexpen U-100 Insulin] 100 unit/mL (3 mL) Insulin Pen See Rx Instructions .ROUTE .COMPLEX 0RF Rx Instructions: 5 unit subcutaneously BEFORE EACH MEAL PLUS SLIDING SCALE aspirin [Adult Aspirin Regimen] 81 mg tablet,delayed release (DR/EC) 81 mg PO DAILY Qty: 30 0RF Discharge Orders: Discharge ED (Routine); Ordered 08/21/21 Ordered By: Tenzin Hannah Referrals: Anju Taveras, PERFORMANCE ANALYST [Primary Care Provider] - Discharge Diet: Usual diet Discharge Activity: Increase activity as tolerated Patient Instructions: Corneal Abrasion (ED), Opioid Safety Activity Restrictions/Additional Instructions: Use antibiotic eyedrops 1 drop to the affected eye 4 times a day while awake for 7 days. Use acetaminophen or ibuprofen for pain. Wear dark sunglasses until light sensitivity improves. Follow-up with eye urgent care technician in 3 days for recheck. Return to ER for new concerns. Coding Level of Care Code ED Customer Service Teller for Stefany Morales
[2021-08-21] MEDS: HYDROcodone-acetaminophen 10-325 mg Tablet 1 TAB PO (19:00)
[2021-08-21] MEDS: tetracaine 0.5% Op Soln 4 mL Btl 1 DROP EYE-RIGHT (19:01)
[2021-08-21] MEDS: fluorescein 1 mg Strip EYE-RIGHT (19:01)
[2021-08-21] MEDS: neomycin-poly-dex Op 5 mL Btl 2 DROP EYE-RIGHT (19:58)
== END 2021-08-21 20:00 | disposition home or self-care (01) ==
PROVIDERS: Emergency Provider Nurse Practitioner Family; PCP Nurse Practitioner
DX: S05.01XA Injury of conjunctiva and corneal abrasion without foreign body, right eye, initial encounter (principal); X58.XXXA Exposure to other specified factors, initial encounter; Z79.82 Long term (current) use of aspirin; Z79.4 Long term (current) use of insulin; Z87.891 Personal history of nicotine dependence; I25.10 Atherosclerotic heart disease of native coronary artery without angina pectoris; E11.40 Type 2 diabetes mellitus with diabetic neuropathy, unspecified; E78.5 Hyperlipidemia, unspecified; I10 Essential (primary) hypertension
CPT/HCPCS: 99283

== ENCOUNTER 2021-09-01 06:38 | Day surgery (SDC) | payer OTHER, SELFPAY ==
[2021-07-27 13:20] VITALS: BMI 44.4
[2021-08-30 11:54] VITALS: BMI 44.1
--- NOTE | 2021-09-01 06:42 | P.ANESASSM_ITS ---
Pre-Anesthetic Assessment Height/Weight: Height 1.7 m Weight 127.913 kg Operation Date: 09/01/21 08:00 Proposed Procedures p EGD 27372/k21.9(Not Applicable) - Beau Cruz MD Familial anesthetic complications: PONV Was Beta Abiel taken within 24 hours: Yes Was Clonidine taken within 24 hours: N/A Last intake: > 8 hrs Social No alcohol and No tobacco Exam alert, oriented x 3, clear to auscultation bilaterally and regular rate & rhythm Airway Mallampati: Class II Dentition: false and other (implants) Pulmonary Sleep Apnea CV/HEM printzmetal's angina (negative angiogram in setting of positive stress test) GI Gastroesophageal Reflux Disease Metabolic Diabetes Mellitus and Morbid Obesity Musc/skel Lower Back Pain Neuropsych Neuropathy Anesthetic Plan ASA status: 3 Anesthesia: MAC Risk of > 500 ml blood loss (7ml/kg in children): No Medications/Allergies Home Medications Medication Instructions Recorded Confirmed Last Taken Type cholecalciferol (vitamin D3) 100 100 mcg PO DAILY 01/28/21 08/30/21 Unknown History mcg (4,000 unit) tablet topiramate 50 mg tablet (Topamax) 100 mg PO BID tab 01/28/21 08/30/21 Unknown History pregabalin 75 mg capsule (Lyrica) 300 mg PO BID cap 03/01/21 08/30/21 Unknown History albuterol sulfate 90 mcg/actuation 2 puff INHALATION Q6H PRN #8.5 g 04/18/21 08/30/21 Unknown Rx aerosol inhaler (Ventolin HFA) hydrocodone 5 mg-acetaminophen 325 1 tab PO Q6H PRN #14 tab 04/24/21 08/30/21 Unknown Rx mg tablet buspirone 30 mg tablet 15 mg PO TID tab 05/11/21 08/30/21 Unknown History prazosin 2 mg capsule 2 mg PO TID cap 05/11/21 08/30/21 Unknown History blood-glucose meter,continuous #1 ea 05/17/21 08/12/21 Unknown Rx (Dexcom G6 Pattern Assembler) blood-glucose sensor (Dexcom G6 #3 ea 05/17/21 08/12/21 Unknown Rx Sensor) blood-glucose transmitter (Dexcom #1 ea 05/17/21 08/12/21 Unknown Rx G6 Transmitter) duloxetine 60 mg capsule,delayed 90 mg PO DAILY cap 06/07/21 08/30/21 Unknown History release (Cymbalta) Custom Molded Orthotics #1 ea 06/09/21 08/12/21 Unknown Rx Night splint to the right #1 ea 06/09/21 08/12/21 Unknown Rx alprazolam 0.25 mg tablet (Xanax) 0.25 mg PO DAILY PRN 06/09/21 08/30/21 Unknown History insulin aspart U-100 100 unit/mL See Rx Instructions .ROUTE .COMPLEX 07/05/21 08/30/21 Unknown History (3 mL) subcutaneous pen (Novolog Flexpen U-100 Insulin aspart) semaglutide (Ozempic) 1 mg (0.8 mL) SUBCUT .WEEKLY #24 ml 07/06/21 08/30/21 Unknown Rx aspirin 81 mg tablet,delayed 81 mg PO DAILY #30 tab 07/07/21 08/30/21 Unknown Rx release (Adult Aspirin Regimen) amlodipine 10 mg tablet 5 mg PO DAILY #90 tab 07/14/21 08/30/21 Unknown Rx lisinopril 2.5 mg tablet 2.5 mg PO DAILY #90 tab 07/14/21 08/30/21 Unknown Rx metoprolol tartrate 25 mg tablet 12.5 mg PO BID #60 tab 07/14/21 08/30/21 Unknown Rx omeprazole 40 mg capsule,delayed 40 mg PO DAILY 07/14/21 08/30/21 Unknown History release tizanidine 4 mg tablet 4 mg PO BID PRN 07/14/21 08/30/21 Unknown History mecobalamin (vitamin B12) 10,000 10,000 mcg IM DIRECTED 07/19/21 08/30/21 Unknown History mcg solution for injection nitroglycerin 0.4 mg sublingual 0.4 mg SUBLINGUAL Q5M PRN 07/19/21 08/30/21 Unknown History tablet clonidine HCl 0.1 mg tablet 0.1 mg PO .HS tab 08/26/21 08/30/21 Unknown History Allergies Allergy/AdvReac Type Severity Reaction Status Date / Time bee venom protein (honey bee) Allergy anaphylaxis Verified 08/30/21 11:47 Influenza Virus Vaccines Allergy anaphylacti Verified 08/30/21 11:47 c mushroom Allergy anaphylaxis Verified 08/30/21 11:47 ondansetron [From Zofran] Allergy Dystonia Verified 08/30/21 11:47 tetracycline Allergy Rash, Verified 08/30/21 11:47 shortness of breath trazodone Allergy Rash, Verified 08/30/21 11:47 trouble breathing [facility] Anesthesia Medical History Anxiety and depression Diagnosed in the and controlled well on medication at this time managed by primary care provider nurse practitioner Nitin. Chronic back pain Associated with neuropathy. Takes Lyrica for the neuropathy. Does take hydrocodone as needed for pain. Coronary artery disease due to type 2 diabetes mellitus Diabetic neuropathy GERD (gastroesophageal reflux disease) Controlled on medication History of coronary angiogram 06/2021 Hyperlipidemia Hypertension Diagnosed in 2017 managed by primary care provider nurse practitioner Nitin Metatarsalgia of both feet Morbid obesity with BMI of 45.0-49.9, adult Post traumatic stress disorder (PTSD) Prinzmetal angina Uncontrolled type 2 diabetes mellitus Surgical History H/O esophagogastroduodenoscopy History of back surgery Pain pump insertion, removed in 2014 History of surgery neck lipoma removal- Hx of breast surgery ductectomy from the left breast done in her late 30s Hx of oophorectomy 1980---right lower quadrant incision-right ovary and appendix were removed when she presented with pain to the emergency room S/P appendectomy 1980-right lower quadrant incision, right ovary and appendix were removed. S/P cholecystectomy Laparoscopic procedure performed in 1992 S/P hysterectomy 1985--vaginal hysterectomy with left oophorectomy performed for a uterine mass she was told that there was no cancer but there were some abnormal cells and it was recommended that she have chemotherapy for 6 weeks however she did only 2 weeks and then did not finish the rest of treatment. S/P left knee arthroscopy S/P tonsillectomy and adenoidectomy As a child S/P tubal ligation 1982-immediately . Family History Mother Heart disease Hypertension Ovarian cancer Diagnosed at age 34 Suicide Thyroid condition Uterine cancer Diagnosed at age 34, unsure of origin Father Heart disease Thyroid condition Sister Thyroid condition Family/Other Thyroid condition [place], granddaughter Denies family history of Colon cancer Diabetes Hyperlipidemia Breast cancer Social History Smoking and tobacco status: former smoker Quit status (tobacco): has quit using tobacco Second hand smoke exposure: No Smoking risk assessment/counseling performed?: Yes Alcohol intake: former Desire information about alcohol rehabilitation?: No Counseling given: No Desire information about substance/drug rehabilitation?: No Counseling given: No Adopted: No Caregiver/support person: No Lives independently: Yes Household members: spouse Housing: House Marital status: Number of children: 2 Highest education level completed: Associate Degree: Occupational, Technical, Vocational Program service: Yes Current occupational status: employed Pets and animals: Yes History of recent travel: No Sexually active: Yes Current gender identity: Female Gricel/Yazidism: Presybeterian Special gricel needs: No Agree to transfusion: No Data Anesthesia Cardiac Studies: Echocardiogram 07/06/21 Sestamibi Stress Test (Cardiology) 07/05/21
[2021-09-01 07:07] VITALS: BP 93/77; PULSE 67; RESP 18; TEMP 36.2; O2SAT 97
[2021-09-01] MEDS: sodium chloride 0.9% 1,000 ML 30 ML IV (07:11)
--- NOTE | 2021-09-01 07:45 | P.HP_ITS ---
Same Day Surgery H&P Indication for Procedure/HPI DATE OF PROCEDURE: September 01, 2021 CHIEF COMPLAINT/INDICATIONFOR SURGICAL PROCEDURE: Chest pain/GERD PREOP DIAGNOSIS: upper gi symptoms PLANNED PROCEDURE: Operation Date: 09/01/21 08:00 Proposed Procedures p EGD 07777/k21.9(Not Applicable) - Beau Cruz MD Medications/Allergies* Home Medications Medication Instructions Recorded Confirmed Type cholecalciferol (vitamin D3) 100 100 mcg PO DAILY 01/28/21 09/01/21 History mcg (4,000 unit) tablet topiramate 50 mg tablet (Topamax) 100 mg PO BID tab 01/28/21 09/01/21 History pregabalin 75 mg capsule (Lyrica) 300 mg PO BID cap 03/01/21 09/01/21 History buspirone 30 mg tablet 15 mg PO TID tab 05/11/21 09/01/21 History prazosin 2 mg capsule 2 mg PO TID cap 05/11/21 09/01/21 History duloxetine 60 mg capsule,delayed 90 mg PO DAILY cap 06/07/21 09/01/21 History release (Cymbalta) alprazolam 0.25 mg tablet (Xanax) 0.25 mg PO DAILY PRN 06/09/21 09/01/21 History insulin aspart U-100 100 unit/mL See Rx Instructions .ROUTE .COMPLEX 07/05/21 09/01/21 History (3 mL) subcutaneous pen (Novolog Flexpen U-100 Insulin aspart) omeprazole 40 mg capsule,delayed 40 mg PO DAILY 07/14/21 09/01/21 History release tizanidine 4 mg tablet 4 mg PO BID PRN 07/14/21 09/01/21 History mecobalamin (vitamin B12) 10,000 10,000 mcg IM DIRECTED 07/19/21 09/01/21 History mcg solution for injection nitroglycerin 0.4 mg sublingual 0.4 mg SUBLINGUAL Q5M PRN 07/19/21 09/01/21 History tablet clonidine HCl 0.1 mg tablet 0.1 mg PO .HS tab 08/26/21 09/01/21 History Allergies/Adverse Reactions Allergy/AdvReac Type Severity Reaction Status Date / Time bee venom protein (honey bee) Allergy anaphylaxis Verified 09/01/21 07:04 Influenza Virus Vaccines Allergy anaphylacti Verified 09/01/21 07:04 c mushroom Allergy anaphylaxis Verified 09/01/21 07:04 ondansetron [From Zofran] Allergy Dystonia Verified 09/01/21 07:04 tetracycline Allergy Rash, Verified 09/01/21 07:04 shortness of breath trazodone Allergy Rash, Verified 09/01/21 07:04 trouble breathing Current Medications: Generic Name Dose Route Start Last Admin Trade Name Freq PRN Reason Stop Dose Admin Sodium Chloride 1,000 mls @ 30 mls/hr 09/01/21 06:45 09/01/21 07:11 Sodium Chloride 0.9% IV 09/02/21 06:44 30 mls/hr .Q24H MAI Administration Pertinent History/Comorbid Conditions* Medical History (Updated 08/29/21 @ 00:01 by ) Anxiety and depression Diagnosed in the and controlled well on medication at this time managed by primary care provider nurse practitioner Nitin. Chronic back pain Associated with neuropathy. Takes Lyrica for the neuropathy. Does take hydrocodone as needed for pain. Coronary artery disease due to type 2 diabetes mellitus Diabetic neuropathy GERD (gastroesophageal reflux disease) Controlled on medication History of coronary angiogram 06/2021 Hyperlipidemia Hypertension Diagnosed in 2018 managed by primary care provider nurse practitioner Nitin Metatarsalgia of both feet Morbid obesity with BMI of 45.0-49.9, adult Post traumatic stress disorder (PTSD) Prinzmetal angina Uncontrolled type 2 diabetes mellitus Surgical History (Updated 07/27/21 @ 10:49 by Beau Cruz MD) H/O esophagogastroduodenoscopy History of back surgery Pain pump insertion, removed in 2014 History of surgery neck lipoma removal- Hx of breast surgery ductectomy from the left breast done in her late 30s Hx of oophorectomy 1980---right lower quadrant incision-right ovary and appendix were removed when she presented with pain to the emergency room S/P appendectomy 1980-right lower quadrant incision, right ovary and appendix were removed. S/P cholecystectomy Laparoscopic procedure performed in 1992 S/P hysterectomy 1985--vaginal hysterectomy with left oophorectomy performed for a uterine mass she was told that there was no cancer but there were some abnormal cells and it was recommended that she have chemotherapy for 6 weeks however she did only 2 weeks and then did not finish the rest of treatment. S/P left knee arthroscopy S/P tonsillectomy and adenoidectomy As a child S/P tubal ligation 1982-immediately . Family History (Updated 11/25/19 @ 14:17 by Sylvia Frazier RN) Ovarian cancer Mother Diagnosed at age 34 Heart disease Mother Father Suicide Mother Hypertension Mother Uterine cancer Mother Diagnosed at age 34, unsure of origin Thyroid condition Mother Father Sister Family/Other [place], granddaughter Denies family history of Colon cancer Diabetes Hyperlipidemia Breast cancer Social History Smoking and tobacco status: former smoker Quit status (tobacco): has quit using tobacco Second hand smoke exposure: No Smoking risk assessment/counseling performed?: Yes Alcohol intake: former Desire information about alcohol rehabilitation?: No Counseling given: No Desire information about substance/drug rehabilitation?: No Counseling given: No Adopted: No Caregiver/support person: No Lives independently: Yes Household members: spouse Housing: House Marital status: Number of children: 2 Highest education level completed: Associate Degree: Occupational, Technical, Vocational Program service: Yes Current occupational status: employed Pets and animals: Yes History of recent travel: No Sexually active: Yes Current gender identity: Female Gricel/Christian: Samaritan Special gricel needs: No Agree to transfusion: No Pertinent Exam Findings alert, oriented x 3 and regular rate & rhythm Recommendations Surgery/Procedure today Coding Level of Care Code Acute Direct Support Specialist for Stefany Morales
--- NOTE | 2021-09-01 08:06 | ANE.PACU2 ---
Inpatient post-anesthesia follow up: Airway intact: Yes Vital signs: Temperature 97.1 F Pulse Rate 67 Respiratory Rate 18 Blood Pressure 93/77 Pulse Oximetry 97 Oxygen Delivery Me thod Room Air Oxygen Flow Rate Fraction of Inspir ed Oxygen Hydration adequate: Yes Nausea and vomiting: No Pain level: 1 Mental status: Baseline
== END 2021-09-01 08:29 | disposition home or self-care (01) ==
PROVIDERS: PCP Nurse Practitioner; Visit Provider Surgery
PROC: 0DJ08ZZ Inspection of Upper Intestinal Tract, Via Natural or Artificial Opening Endoscopic (ICD-10-PCS; CPT 43235; principal; 2021-09-01 08:00)
DX: K21.9 Gastro-esophageal reflux disease without esophagitis (principal); K29.70 Gastritis, unspecified, without bleeding; R07.9 Chest pain, unspecified; F41.9 Anxiety disorder, unspecified; F32.9 Major depressive disorder, single episode, unspecified; G89.29 Other chronic pain; M54.9 Dorsalgia, unspecified; Z79.891 Long term (current) use of opiate analgesic; E11.40 Type 2 diabetes mellitus with diabetic neuropathy, unspecified; Z79.4 Long term (current) use of insulin; E78.5 Hyperlipidemia, unspecified; I10 Essential (primary) hypertension; E66.01 Morbid (severe) obesity due to excess calories; Z68.41 Body mass index [BMI] 40.0-44.9, adult; Z82.49 Family history of ischemic heart disease and other diseases of the circulatory system; Z80.41 Family history of malignant neoplasm of ovary; Z87.891 Personal history of nicotine dependence; G47.30 Sleep apnea, unspecified
CPT/HCPCS: 43239; 88305; J2704; J7030

== ENCOUNTER → 2021-09-14 11:04 | Outpatient (BNVA) | payer OTHER, SELFPAY | PROVIDERS: PCP Nurse Practitioner; Visit Provider Surgery | DX: K21.9 Gastro-esophageal reflux disease without esophagitis (principal) | CPT/HCPCS: 99212 ==

== ENCOUNTER → 2021-09-22 14:22 | Outpatient (BNVA) | payer OTHER, SELFPAY | PROVIDERS: PCP Nurse Practitioner; Visit Provider Internal Medicine Cardiovascular Disease | DX: I20.1 Angina pectoris with documented spasm (principal); I10 Essential (primary) hypertension; Z87.891 Personal history of nicotine dependence; Z79.82 Long term (current) use of aspirin | CPT/HCPCS: 99214 ==

== ENCOUNTER 2021-09-27 07:45 | Outpatient (CLI) | payer OTHER, SELFPAY ==
--- NOTE | 2021-09-27 08:00 | NM_ITS ---
WS: [id number] NUCLEAR MEDICINE GASTRIC STUDY CLINICAL INFORMATION: K21.9 - Gastro-esophageal reflux disease without esophagitis TECHNIQUE: Following oral ingestion of cooked egg mixed with mCi technetium 99m sulfur colloid, anter ior images of the stomach were obtained over the course of 90 minutes. Activity curve was performed o giancarlo the course of 90 minutes with linear regression analysis. COMPARISON: None. FINDINGS: Oral ingestion of technetium sulfur colloid egg mixture. No significant emptying at 105 minutes. Sign ificantly delayed gastric emptying. T1 half (minutes)=803 (normal 45-110) NM/NM gastric [place] st [address]105 IMPRESSION: No significant stomach emptying at 105 minutes. Significantly delayed gastric e mptying. *Normal median T1 half 90 minutes for solid egg meal (45-110 minutes). Delayed gastric retention is defined as 90% retained at 1 hour, 60% at 2 hour s, 30% at 3 hours, and 10% at 4 hours (normal percent gastric retention is 37-9 0% at 1 hour, 30-60% at 2 hours, and 0-10% at 4 hours).
== END 2021-09-27 07:46 | disposition home or self-care (01) ==
LOC: RAD 07:49
PROVIDERS: PCP Nurse Practitioner; Visit Provider Surgery
DX: K21.9 Gastro-esophageal reflux disease without esophagitis (principal)
CPT/HCPCS: 78264; A9541

== ENCOUNTER → 2021-09-28 14:09 | Outpatient (BNVA) | payer OTHER, SELFPAY | PROVIDERS: PCP Nurse Practitioner; Visit Provider Surgery | DX: Z09 Encounter for follow-up examination after completed treatment for conditions other than malignant neoplasm (principal) | CPT/HCPCS: 99212 ==

== ENCOUNTER → 2021-10-01 13:16 | Outpatient (BNVA) | payer OTHER, SELFPAY | PROVIDERS: PCP Nurse Practitioner; Visit Provider Podiatrist Foot & Ankle Surgery | DX: M72.2 Plantar fascial fibromatosis (principal); M20.41 Other hammer toe(s) (acquired), right foot; M20.42 Other hammer toe(s) (acquired), left foot; M21.611 Bunion of right foot; M21.612 Bunion of left foot; E11.21 Type 2 diabetes mellitus with diabetic nephropathy; M77.41 Metatarsalgia, right foot; M77.42 Metatarsalgia, left foot; M21.41 Flat foot [pes planus] (acquired), right foot; M21.42 Flat foot [pes planus] (acquired), left foot; Z87.891 Personal history of nicotine dependence | CPT/HCPCS: 64455 ==

== ENCOUNTER → 2021-10-18 13:29 | Outpatient (BNVA) | payer OTHER, SELFPAY | PROVIDERS: PCP Nurse Practitioner; Visit Provider Internal Medicine | DX: E11.65 Type 2 diabetes mellitus with hyperglycemia (principal); E11.42 Type 2 diabetes mellitus with diabetic polyneuropathy; E11.649 Type 2 diabetes mellitus with hypoglycemia without coma; K31.84 Gastroparesis; E78.2 Mixed hyperlipidemia; E66.01 Morbid (severe) obesity due to excess calories; Z68.42 Body mass index [BMI] 45.0-49.9, adult; Z87.891 Personal history of nicotine dependence; Z79.4 Long term (current) use of insulin | CPT/HCPCS: 99215 ==

== ENCOUNTER → 2021-12-09 08:08 | Outpatient (BNVA) | payer OTHER, BC, SELFPAY | PROVIDERS: PCP Nurse Practitioner; Visit Provider Specialist | DX: M17.11 Unilateral primary osteoarthritis, right knee (principal) | CPT/HCPCS: 20610 ==

== ENCOUNTER → 2021-12-14 10:50 | Outpatient (BNVA) | payer OTHER, BC, SELFPAY | PROVIDERS: PCP Nurse Practitioner; Visit Provider Podiatrist Foot & Ankle Surgery | DX: Z79.4 Long term (current) use of insulin (principal); E11.621 Type 2 diabetes mellitus with foot ulcer; L97.511 Non-pressure chronic ulcer of other part of right foot limited to breakdown of skin | CPT/HCPCS: 99214 ==

== ENCOUNTER → 2022-01-04 10:21 | Outpatient (BNVA) | payer OTHER, BC, SELFPAY | PROVIDERS: PCP Nurse Practitioner; Visit Provider Podiatrist Foot & Ankle Surgery | DX: Z79.4 Long term (current) use of insulin (principal); E11.621 Type 2 diabetes mellitus with foot ulcer; M72.2 Plantar fascial fibromatosis; M20.41 Other hammer toe(s) (acquired), right foot; M20.42 Other hammer toe(s) (acquired), left foot; M21.611 Bunion of right foot; M21.612 Bunion of left foot; M21.40 Flat foot [pes planus] (acquired), unspecified foot; E11.21 Type 2 diabetes mellitus with diabetic nephropathy; M77.41 Metatarsalgia, right foot; L97.511 Non-pressure chronic ulcer of other part of right foot limited to breakdown of skin; M77.42 Metatarsalgia, left foot | CPT/HCPCS: 99214 ==

== ENCOUNTER → 2022-01-17 11:07 | Outpatient (BNVA) | payer OTHER, BC, SELFPAY | PROVIDERS: PCP Nurse Practitioner; Visit Provider Podiatrist Foot & Ankle Surgery | DX: E11.21 Type 2 diabetes mellitus with diabetic nephropathy (principal); M20.41 Other hammer toe(s) (acquired), right foot; M20.42 Other hammer toe(s) (acquired), left foot; M21.611 Bunion of right foot; M21.612 Bunion of left foot; M21.40 Flat foot [pes planus] (acquired), unspecified foot; S92.321A Displaced fracture of second metatarsal bone, right foot, initial encounter for closed fracture; S92.331A Displaced fracture of third metatarsal bone, right foot, initial encounter for closed fracture; S92.341A Displaced fracture of fourth metatarsal bone, right foot, initial encounter for closed fracture; Z79.4 Long term (current) use of insulin; X58.XXXA Exposure to other specified factors, initial encounter | CPT/HCPCS: 28470; 99213 ==

== ENCOUNTER → 2022-01-17 11:20 | Outpatient (BNVA) | payer OTHER, BC, SELFPAY | PROVIDERS: PCP Nurse Practitioner; Visit Provider Podiatrist Foot & Ankle Surgery | DX: M79.671 Pain in right foot (principal) | CPT/HCPCS: 73630 ==

== ENCOUNTER 2022-01-17 11:49 | Outpatient (CLI) | payer OTHER, BC, SELFPAY | END 2022-01-17 11:50 | disposition home or self-care (01) | LOC: SPT 11:50 | PROVIDERS: PCP Nurse Practitioner; Visit Provider Podiatrist Foot & Ankle Surgery | DX: Z46.89 Encounter for fitting and adjustment of other specified devices (principal); S92.309D Fracture of unspecified metatarsal bone(s), unspecified foot, subsequent encounter for fracture with routine healing; X58.XXXD Exposure to other specified factors, subsequent encounter; E11.42 Type 2 diabetes mellitus with diabetic polyneuropathy; E11.65 Type 2 diabetes mellitus with hyperglycemia; K31.84 Gastroparesis; E16.2 Hypoglycemia, unspecified; E78.2 Mixed hyperlipidemia; E66.01 Morbid (severe) obesity due to excess calories; Z68.42 Body mass index [BMI] 45.0-49.9, adult; Z79.4 Long term (current) use of insulin | CPT/HCPCS: 97760; 99214; L4361 ==

== ENCOUNTER → 2022-02-03 14:52 | Outpatient (BNVA) | payer OTHER, BC, SELFPAY | PROVIDERS: PCP Nurse Practitioner; Visit Provider Podiatrist Foot & Ankle Surgery | DX: M20.41 Other hammer toe(s) (acquired), right foot (principal); M20.42 Other hammer toe(s) (acquired), left foot; M21.611 Bunion of right foot; M21.612 Bunion of left foot; E11.21 Type 2 diabetes mellitus with diabetic nephropathy; S92.321D Displaced fracture of second metatarsal bone, right foot, subsequent encounter for fracture with routine healing; S92.331D Displaced fracture of third metatarsal bone, right foot, subsequent encounter for fracture with routine healing; S92.341D Displaced fracture of fourth metatarsal bone, right foot, subsequent encounter for fracture with routine healing; X58.XXXD Exposure to other specified factors, subsequent encounter; Z79.4 Long term (current) use of insulin | CPT/HCPCS: 73630; 99214 ==

== ENCOUNTER → 2022-02-16 14:49 | Outpatient (BNVA) | payer OTHER, SELFPAY | PROVIDERS: PCP Nurse Practitioner; Visit Provider Podiatrist Foot & Ankle Surgery | DX: S92.341G Displaced fracture of fourth metatarsal bone, right foot, subsequent encounter for fracture with delayed healing (principal); S92.331G Displaced fracture of third metatarsal bone, right foot, subsequent encounter for fracture with delayed healing; S92.321G Displaced fracture of second metatarsal bone, right foot, subsequent encounter for fracture with delayed healing; X58.XXXD Exposure to other specified factors, subsequent encounter; M20.41 Other hammer toe(s) (acquired), right foot; M20.42 Other hammer toe(s) (acquired), left foot; M21.611 Bunion of right foot; M21.612 Bunion of left foot; M21.41 Flat foot [pes planus] (acquired), right foot; M21.42 Flat foot [pes planus] (acquired), left foot; E11.21 Type 2 diabetes mellitus with diabetic nephropathy; Z79.4 Long term (current) use of insulin | CPT/HCPCS: 73630; 99214; 99215 ==

== ENCOUNTER 2022-02-25 05:46 | Day surgery (SDC) | payer OTHER, SELFPAY ==
[2022-02-24 09:06] VITALS: BMI 45.4
[2022-02-25] VITALS (11 sets, daily range): BP systolic 81–138; BP diastolic 49–75; PULSE 81–99; RESP 10–20; TEMP 36.1–36.6; O2SAT 90–98
--- NOTE | 2022-02-25 | SCC_ITS ---
Procedure done: Right bunionectomy with double osteotomy. CPT code 17764 Right fourth hammertoe correction with arthrodesis. CPT code 18591 Open reduction internal fixation right second metatarsal fracture. CPT code 51920 Open reduction internal fixation right third metatarsal fracture. CPT code 58717 Open reduction internal fixation right fourth metatarsal fracture. CPT code 68518 20 seconds of fluoroscopic guidance, for a cumulative dose of 0.341 mGy, was provided to Dr. Jasso by the radiology department. C-arm images of the right foot were saved for the patient's permanent record. [facility]
--- NOTE | 2022-02-25 06:00 | XR_ITS ---
WS: [id number] Exam: XR foot RT min 3V* [id number] Date/Time of Exam: 02/25/2022 6:00 AM Reason For Exam: post op Comparison 02/16/2022. There is an osteotomy of the distal first metatarsal secondary to bunion repair. There is also an ost eotomy at the proximal end of the proximal phalanx of the great toe. Orthopedic pins courses through the long axis of the second, third and fourth metatarsals. The pin of the fourth ray also involves th e phalanges. Old fracture deformities of the second third and fourth metatarsals. XR/XR foot RT min 3V* [id number] IMPRESSION: 1. Postoperative changes of the first, second, third and fourth rays as detaile d above. See above description.
[2022-02-25 06:17] LABS: Glucose Point of Care 194 mg/dL (70-110)
[2022-02-25] MEDS: sodium chloride 0.9% 1,000 ML 30 ML IV (06:20)
[2022-02-25 06:33] LABS: Basophils # 0.1 10^3/uL (0.0-0.1); Basophils % 0.7 %; Eosinophils # 0.2 10^3/uL (0.0-0.8); Eosinophils % 2.4 %; Hematocrit 47.6 % (37.0-47.0); Hemoglobin 15.5 g/dL (11.5-15.3); Lymphocytes # 3.8 10^3/uL (0.8-4.8); Lymphocytes % 38.9 %; Mean Corpuscular HGB Conc 32.6 g/dL (30.0-36.0); Mean Corpuscular Hemoglobin 29.5 pg (28.0-34.0); Mean Corpuscular Volume 90.5 fl (81-99); Monocytes # 0.9 10^3/uL (0.2-0.9); Monocytes % 8.9 %; Neutrophils # 4.79 10^3/uL (1.8-7.7); Neutrophils % 48.6 %; Nucleated Red Blood Cells % 0 %; Platelet Count 196 10^3/cmm (130-400); Red Blood Count 5.26 10^6/uL (4.1-5.3); Red Cell Distribution Width 13.2 % (12.1-15.1); White Blood Count 9.9 10^3/uL (4.0-10.0)
--- NOTE | 2022-02-25 06:41 | W.PM.OPSUD ---
Surgery/Procedure H&P Update DATE OF PROCEDURE: February 25, 2022 DATE H&P PERFORMED: 02/16/22 CHANGES TO PREVIOUS DOCUMENTATION: none PREOP DIAGNOSIS: Bunion, hammertoe, metatarsal fractures, all right foot PLANNED PROCEDURE: Operation Date: 02/25/22 07:00 Proposed Procedures p Reilly, Margarito, fourth hammertoe correction, open reduction internal fixation second, third, fourth metatarsals all right foot. Possible right 64346,01294,x3, 73940,M79.671,S92.321G,S92.331G,S92.341G,M20.42,M21.612(Right) - ESTHELA Carbajal Margarito Bunionectomy(Right) - ESTHELA Carbajal Hammertoe Correction(Right) - ESTHELA Carbajal ORIF Metatarsal(Right) - Saji Jasso DPM
--- NOTE | 2022-02-25 06:42 | PM.OP ---
Operative Report Date of procedure: February 25, 2022 Pre-op diagnosis: Right bunion deformity. Right fourth hammertoe deformity. Right second metatarsal fracture. Right third metatarsal fracture. Right fourth metatarsal fracture. Post-op diagnosis: Right bunion deformity. Right fourth hammertoe deformity. Right second metatarsal fracture. Right third metatarsal fracture. Right fourth metatarsal fracture. Procedure done: Right bunionectomy with double osteotomy. CPT code 10646 Right fourth hammertoe correction with arthrodesis. CPT code 58016 Open reduction internal fixation right second metatarsal fracture. CPT code 98313 Open reduction internal fixation right third metatarsal fracture. CPT code 93709 Open reduction internal fixation right fourth metatarsal fracture. CPT code 67327 Implants: [place] 28 3.0 mm partially-threaded, cannulated, headed screw, 18 mm in length. [place] 2810 mm x 10 mm x 10 mm angled nitinol compression staple 0.045 K wire x4 3-0 Vicryl, 4-0 Vicryl, 4-0 Prolene Specimens removed/disposition: None Pathology: None Surgeon: Saji Jasso D.P.M. Survey Worker: Melani Estimated blood loss: 5 64 IV fluids: 0 Urine output: 0 Complications: 0 Brief History: Patient presents with multiple chief complaints.? Would like to address multiple issues with surgical consultation at today's visit.? Requesting surgery at next available opportunity.? Have been treating fractures of second, third and fourth metatarsals right foot conservatively.? There has been a progression of healing appreciated on x-ray between visits, have been immobilized and offloaded with a cam boot for greater than 4 weeks.? Unfortunately patient has reported increased pain throughout the progression of her fracture care.? States that she would like to have this surgically corrected due to the increased pain.? Feels like her fractures are getting worse and this is affecting her overall quality of life.? I explained the radiographic findings of increased bone callus formation and that radiographically she is showing progressive healing unfortunately clinically she continues to have a worsening of symptoms.? Patient has a painful hammertoe that is nonreducible to the right fourth with triplane component as well as a bunion deformity to the right foot that she was planning on getting fixed prior to her fractures.? She is requesting a bunionectomy and fracture repair as well as hammertoe correction to be done concomitantly.? I reviewed at length with the patient, the risks, potential complications, benefits, alternatives, expectations, and typical outcomes associated with the surgery. The risks and potential complications were explained in detail, including but not limited to infection, wound dehiscence or soft tissue complications, bleeding and hematoma, chronic edema, neuritis or nerve damage producing numbness or chronic pain, CRPS, failure to relieve pain or worsening pain, thick / painful / unsightly scar, limited motion / stiffness, malposition, delayed union, malunion, or nonunion, fracture, reaction to implants, anesthetic complications, venous thromboembolism, and deformity recurrence.? I discussed the notion of no regrets with the patient as it pertains to complications and outcomes. The patient seemed to understand the nature of the proposed care and required convalescence. They asked appropriate questions, answered to their satisfaction. They are aware no guarantees can be made as to a satisfactory outcome and they understand there may be other possible unforeseen complications or outcomes not listed here that will be treated accordingly if they arise. There were no written or implied guarantees given to the patient. They gave informed consent to proceed.? Also risk for vascular injury especially the right fourth toe that may result in ischemia resulting in amputation.? Risk for hallux varus.? Risk for sesamoiditis.? Risk for transfer pressure and transfer lesions, transfer pain, altered mechanics.? Risk for avascular necrosis.? Risk for chronic swelling and permanent numbness.? Risk for bruising.? Risk for hematoma.? Risk for dehiscence.? Risk for deep vein thrombosis, heart attack, stroke and .? Patient is agreeable wishes to proceed, once next availability.? Has a skin fissure to the right plantar foot, prophylactically was placed on Keflex and encouraged decreased activity and continued offloading with cam boot at all times.? I advised the patient that should there be an open wound the day of surgery that this would delay her surgical care. 02/25/2022, Margarito Grover, fourth hammertoe correction, open reduction internal fixation second, third, fourth metatarsals all right foot.? Procedure: Under mild sedation the patient was brought to the operating room and remained on the gurney in supine position. A timeout was performed. Anesthesia was then administered by the anesthesia service. Local anesthesia was injected by myself consisting of 30 cc of one-to-one mixture 1% lidocaine and 0.25% Marcaine plain in a Mayes block, second third and fourth ray block fashion. Well-padded pneumatic tourniquet applied to the right ankle. The right lower extremity was then scrubbed, prepped and draped utilizing normal aseptic technique. Right foot and ankle were then exanguinated with an Esmarch bandage and the tourniquet inflated to 250 mmHg. Attention was directed to the dorsal medial aspect of the right first metatarsal phalangeal joint where a linear longitudinal incision was made medial and parallel to the extensor houses longus tendon. Dissection was carried down through subcutaneous tissue to the layer of joint capsule and periosteum which was incised. Care was taken to retract and preserve neurovascular and tendinous structures. All bleeders were ligated and cauterized as necessary. A periosteal and capsular incision was made in the head of the first metatarsal and base of the proximal phalanx were freed from their soft tissue and capsular attachments. Medial eminence of the first metatarsal head right foot was transected and passed from operative field followed by a guidepin from medial to lateral inserted into the head of the first metatarsal and a chevron style osteotomy with a sagittal saw was performed with apex pointed distally. The head of the first metatarsal was translated laterally in a more anatomic corrected position and fixated utilizing standard AO technique utilizing a [place] 28 3.0 mm headed partially-threaded cannulated screw 18 mm in length with excellent bony apposition and compression noted. A Margarito osteotomy was then performed at the diaphyseal portion of the proximal phalanx of the right hallux, maintained a lateral cortical hinge and fixated utilizing a [place] 28 10 mm x 10 mm x 10 mm compression staple with excellent bony apposition and compression noted. Incision was flushed with copious amounts of sterile skin solution. Intraoperative fluoroscopy in all 3 standard views confirmed excellent placement of hardware, the first metatarsal phalangeal joint was not violated. Capsular structure closed with 3-0 Vicryl. Subcutaneous tissue closed with 4-0 Vicryl and skin closed with 4-0 Prolene. Attention was then directed to the dorsum of the right fourth toe where a linear longitudinal incision was made starting at the distal interphalangeal joint coursing proximally over the proximal interphalangeal joint. The distal interphalangeal joint was accessed by performing a transverse tenotomy of the extensor tendon at this level and the head and base of the intermediate phalanx and distal phalanx were transected utilizing a sagittal saw and denuded over the articular surface followed by preparation of the proximal interphalangeal joint in like fashion with a sagittal saw. Next a K wire 0.045 was integrated from the base of the intermediate phalanx out the tip of the right fourth toe and then retrograded proximally across the first metatarsal phalangeal joint and across the fourth metatarsal fracture for fracture stabilization. All 3 standard views taken and reviewed intraoperatively showed intramedullary placement of the 045 K wire across the distal phalanx, intermediate phalanx, proximal phalanx, centrally through the fourth metatarsal phalangeal joint and across the fracture of the fourth metatarsal appropriately. Incision was flushed with copious amounts of sterile saline solution. Extensor tendon was reapproximated utilizing 4-0 Vicryl. Skin closed with 4-0 Prolene. Attention was then directed to the second and third metatarsals. Utilizing fluoroscopy the fractures were identified. Stab incision directly over the second and third metatarsal fractures was performed, fractures were then temporarily stabilized and fixated utilizing a 0.045 K wire at the second and third metatarsal fractures driven distal dorsal to proximal plantar. All K wires were trimmed to length and a Luis ball applied. Incision sites were dressed with Adaptic, sterile 4 x 4, Kerlix, James wrap and a cam boot was applied. The tourniquet was then deflated and a prompt hyperemic response is noted to the distal digits of the right foot. Patient tolerated the procedure and anesthesia well and was transferred to the PACU with vital signs stable and vascular status intact. Following a period of postop monitoring she will be discharged home.
[2022-02-25 06:50] LABS: Blood Urea Nitrogen 13 mg/dL (6-20); Calcium 8.9 mg/dL (8.5-10.5); Carbon Dioxide 23 mmol/L (22-29); Chloride 104 mmol/L (98-107); Glomerular Filtration Rate 85.6 mL/min (90-130); Glucose 196 mg/dL (65-115); Osmolality Calculated 288 mOsm/kg (285-295); Sodium 136 mmol/L (136-145)
[2022-02-25 06:54] LABS: Anion Gap 12.8 (5-19); Potassium 3.8 mmol/L (3.5-5.1)
[2022-02-25] MEDS: scopolamine 1.5 Patch 1 PATCH TRANSDERMA (06:54)
[2022-02-25] MEDS: ceFAZolin 3,000 MG in sodium chloride 0.9% (100 ml) 100 ML 200 MG IV (07:00)
[2022-02-25] MEDS: lidocaine 2% INJ 20 mL 15 ML INJECTION (07:17)
--- NOTE | 2022-02-25 08:35 | SUR.PHASEI ---
patient into PACU with oral airway in place. pt sats at 93% on 6L o2 per simple mask. patient has dressing to right foot in place, dry.
--- NOTE | 2022-02-25 08:48 | SUR.PHASEI ---
patient awake but drowsy still. on room air with sats at 91%. awaiting xrays to be done.
--- NOTE | 2022-02-25 14:13 | P.ANESASSM_ITS ---
Pre-Anesthetic Assessment Height/Weight: Height 1.7 m Weight 131.542 kg Temp Pulse Resp BP Pulse Ox O2 Del Method O2 Flow Rate 98 F 81 16 104/58 94 6 02/25/22 09:08 02/25/22 09:23 02/25/22 09:23 02/25/22 09:23 02/25/22 09:23 02/25/22 09:23 02/25/22 08:40 Preop Diagnosis: Bunion, hammertoe, metatarsal fractures, all right foot Operation Date: 02/25/22 07:00 Proposed Procedures p Reilly, Margarito, fourth hammertoe correction, open reduction internal fixation second, third, fourth metatarsals all right foot. Possible right 90821,10733,x3, 46730,M79.671,S92.321G,S92.331G,S92.341G,M20.42,M21.612(Right) - ESTHELA Carbajal Margarito Bunionectomy(Right) - ESTHELA Carbajal Hammertoe Correction(Right) - ESTHELA Carbajal ORIF Metatarsal(Right) - Saji Jasso DPM Familial anesthetic complications: none Was Beta Abiel taken within 24 hours: Yes Was Clonidine taken within 24 hours: N/A Last intake: Intake Last Liquid Date 02/24/22 Last Liquid Time 22:00 Last Solid Date 02/24/22 Last Solid Time 19:30 Exam alert, oriented x 3, clear to auscultation bilaterally and regular rate & rhythm Airway Submandibular: within normal limits Cervical ROM: within normal limits Mallampati: Class II Dentition: false Pulmonary Asthma CV/HEM Coronary Artery Disease and Hypertension GI Gastroesophageal Reflux Disease gastroparesis Metabolic Diabetes Mellitus, Hyperlipidemia and Morbid Obesity [facility] Lower Back Pain and Osteoarthritis/DJD Neuropsych Anxiety and Depression Anesthetic Plan ASA status: 3 Anesthesia: General Medications/Allergies Home Medications Medication Instructions Recorded Confirmed Last Taken Type cholecalciferol (vitamin D3) 100 100 mcg PO DAILY 01/28/21 02/25/22 02/24/22 History mcg (4,000 unit) tablet topiramate 50 mg tablet (Topamax) 100 mg PO BID 01/28/21 02/25/22 02/24/22 History pregabalin 75 mg capsule (Lyrica) 300 mg PO BID 03/01/21 02/25/22 02/24/22 History albuterol sulfate 90 mcg/actuation 2 puff inhalation Q6H PRN 04/18/21 02/24/22 08/31/21 Rx aerosol inhaler (Ventolin HFA) shortness of breath or wheezing #8.5 grams buspirone 30 mg tablet 15 mg PO TID 05/11/21 02/25/22 02/25/22 History blood-glucose meter,continuous #1 ea 05/17/21 02/16/22 08/31/21 Rx (Dexcom G6 Visual C Developer misc) blood-glucose sensor (Dexcom G6 #3 ea 05/17/21 02/16/22 08/31/21 Rx Sensor device) blood-glucose transmitter (Dexcom #1 ea 05/17/21 02/16/22 08/31/21 Rx G6 Transmitter device) duloxetine 60 mg capsule,delayed 90 mg PO DAILY 06/07/21 02/25/22 02/24/22 History release (Cymbalta) Custom Molded Orthotics #1 ea 06/09/21 02/16/22 08/31/21 Rx Night splint to the right #1 ea 06/09/21 02/16/22 08/31/21 Rx alprazolam 0.25 mg tablet (Xanax) 0.25 mg PO DAILY PRN panic 06/09/21 02/24/22 08/31/21 History attack(s) aspirin 81 mg tablet,delayed 81 mg PO DAILY #30 tabs 07/07/21 02/25/22 02/24/22 Rx release (Adult Aspirin Regimen) amlodipine 10 mg tablet 5 mg PO DAILY coronary vasospasm 07/14/21 02/25/22 02/25/22 Rx #90 tabs lisinopril 2.5 mg tablet 2.5 mg PO DAILY #90 tabs 07/14/21 02/25/22 02/24/22 Rx metoprolol tartrate 25 mg tablet 12.5 mg PO BID #60 tabs 07/14/21 02/25/22 02/24/22 Rx mecobalamin (vitamin B12) 10,000 10,000 mcg IM DIRECTED 07/19/21 02/25/22 02/24/22 History mcg solution for injection nitroglycerin 0.4 mg sublingual 0.4 mg sublingual Q5M PRN Chest 07/19/21 02/24/22 08/31/21 History tablet Pain clonidine HCl 0.1 mg tablet 0.1 mg PO .HS 08/26/21 02/25/22 02/24/22 History isosorbide mononitrate 30 mg 30 mg PO DAILY #30 tabs 09/22/21 02/25/22 02/24/22 Rx tablet,extended release 24 hr insulin aspart U-100 100 unit/mL See Rx Instructions .Route 10/18/21 02/25/22 02/24/22 Rx (3 mL) subcutaneous pen (Novolog .COMPLEX #45 mL Flexpen U-100 Insulin aspart) omeprazole 40 mg capsule,delayed 40 mg PO DAILY 10/18/21 02/25/22 02/24/22 History release prazosin 2 mg capsule 6 mg PO DIRECTED 10/18/21 02/25/22 02/24/22 History spironolactone 25 mg tablet 25 mg PO DAILY 10/18/21 02/25/22 02/24/22 History insulin glargine 100 unit/mL (3 10 unit (0.1 mL) SUBCUT DAILY #30 11/24/21 02/25/22 02/24/22 Rx mL) subcutaneous pen (Lantus mL Solostar U-100 Insulin) mupirocin 2 % topical ointment 1 applic topical BID 2 weeks #22 12/14/21 02/24/22 Unknown Rx grams Cam Boot to the Right #1 ea 01/17/22 02/16/22 Unknown Rx semaglutide 0.25 mg or 0.5 mg (2 0.25 mg (0.2 mL) SUBCUT Q7D 8 02/07/22 02/25/22 02/24/22 Rx mg/1.5 mL) subcutaneous pen weeks #3 mL injector (Ozempic) hydrocodone 10 mg-acetaminophen 1 tab PO Q6H PRN pain 7 days #28 02/25/22 Unknown Rx 325 mg tablet tabs Allergies Allergy/AdvReac Type Severity Reaction Status Date / Time bee venom protein (honey bee) Allergy anaphylaxis Verified 02/25/22 06:07 Influenza Virus Vaccines Allergy anaphylacti Verified 02/25/22 06:07 c mushroom Allergy anaphylaxis Verified 02/25/22 06:07 ondansetron [From Zofran] Allergy Dystonia Verified 02/25/22 06:07 tetracycline Allergy Rash, Verified 02/25/22 06:07 shortness of breath trazodone Allergy Rash, Verified 02/25/22 06:07 trouble breathing [facility] Anesthesia Medical History Anxiety and depression Diagnosed in the and controlled well on medication at this time managed by primary care provider nurse practitioner Nitin. Chronic back pain Associated with neuropathy. Takes Lyrica for the neuropathy. Does take hydrocodone as needed for pain. Coronary artery disease due to type 2 diabetes mellitus Diabetic neuropathy Gastroparesis GERD (gastroesophageal reflux disease) Controlled on medication Hyperlipidemia Hypertension Diagnosed in 2017 managed by primary care provider nurse practitioner Nitin Metatarsalgia of both feet Post traumatic stress disorder (PTSD) Prinzmetal angina Uncontrolled type 2 diabetes mellitus Surgical History H/O esophagogastroduodenoscopy (09/01/21) History of back surgery Pain pump insertion, removed in 2014 History of coronary angiogram 06/2021 History of surgery neck lipoma removal- Hx of breast surgery ductectomy from the left breast done in her late 30s Hx of oophorectomy 1980---right lower quadrant incision-right ovary and appendix were removed when she presented with pain to the emergency room S/P appendectomy 1980-right lower quadrant incision, right ovary and appendix were removed. S/P cholecystectomy Laparoscopic procedure performed in 1992 S/P hysterectomy 1985--vaginal hysterectomy with left oophorectomy performed for a uterine mass she was told that there was no cancer but there were some abnormal cells and it was recommended that she have chemotherapy for 6 weeks however she did only 2 weeks and then did not finish the rest of treatment. S/P left knee arthroscopy S/P tonsillectomy and adenoidectomy As a child S/P tubal ligation 1982-immediately . Family History Mother Heart disease Hypertension Ovarian cancer Diagnosed at age 34 Suicide Thyroid condition Uterine cancer Diagnosed at age 34, unsure of origin Father Heart disease Thyroid condition Sister Thyroid condition Family/Other Thyroid condition [place], granddaughter Denies family history of Colon cancer Diabetes Hyperlipidemia Breast cancer Social History (Reviewed 02/16/22 @ 14:51 by Gabi Lyle Smoking and tobacco status: never smoked Quit status (tobacco): has quit using tobacco Second hand smoke exposure: No Smoking risk assessment/counseling performed?: Yes Alcohol intake: former Desire information about alcohol rehabilitation?: No Counseling given: No Desire information about substance/drug rehabilitation?: No Counseling given: No Adopted: No Caregiver/support person: No Lives independently: Yes Household members: spouse Housing: House Marital status: Number of children: 2 Highest education level completed: Associate Degree: Occupational, Technical, Vocational Program service: Yes Current occupational status: employed Pets and animals: Yes History of recent travel: No Sexually active: Yes Current gender identity: Female Gricel/Jehovah'S Witness: Yazidi Special gricel needs: No Agree to transfusion: No Data Anesthesia : 02/25/22 06:14 02/25/22 06:14 Short CBC 02/25/22 Range/Units 06:14 WBC 9.9 (4.0-10.0) 10^3/uL Hgb 15.5 H (11.5-15.3) g/dL Hct 47.6 H (37.0-47.0) % MCV 90.5 (81-99) fl Plt Count 196 (130-400) 10^3/cmm Neut % (Auto) 48.6 % Neut # (Auto) 4.79 (1.8-7.7) 10^3/uL BMP 02/25/22 06:14 Sodium 136 Potassium 3.8 Chloride 104 Carbon Dioxide 23 BUN 13 Creatinine 0.7 Glucose 196 H Calcium 8.9 Cardiac Studies: Echocardiogram 07/06/21 Sestamibi Stress Test (Cardiology) 07/05
--- NOTE | 2022-02-25 14:17 | ANE.PACU2 ---
Inpatient post-anesthesia follow up: Airway intact: Yes Vital signs: Temperature 98 F Pulse Rate 81 Respiratory Rate 16 Blood Pressure 104/58 Pulse Oximetry 94 Oxygen Delivery Me thod Room Air Oxygen Flow Rate 6 Fraction of Inspir ed Oxygen Hydration adequate: Yes Nausea and vomiting: No Pain level: 2 Mental status: Baseline
== END 2022-02-25 10:10 | disposition home or self-care (01) ==
PROVIDERS: Anesthesiology; PCP Nurse Practitioner; Visit Provider Podiatrist Foot & Ankle Surgery
PROC: (CPT 28296; principal; 2022-02-25 07:00)
PROC: (CPT 28298; 2022-02-25 07:00)
PROC: (CPT 28285; 2022-02-25 07:00)
PROC: (CPT 28485; 2022-02-25 07:00)
DX: M21.611 Bunion of right foot (principal); M20.41 Other hammer toe(s) (acquired), right foot; S92.321A Displaced fracture of second metatarsal bone, right foot, initial encounter for closed fracture; S92.331A Displaced fracture of third metatarsal bone, right foot, initial encounter for closed fracture; S92.341A Displaced fracture of fourth metatarsal bone, right foot, initial encounter for closed fracture; X58.XXXA Exposure to other specified factors, initial encounter; I25.10 Atherosclerotic heart disease of native coronary artery without angina pectoris; E11.9 Type 2 diabetes mellitus without complications; E78.5 Hyperlipidemia, unspecified; E66.01 Morbid (severe) obesity due to excess calories; Z68.42 Body mass index [BMI] 45.0-49.9, adult; F41.9 Anxiety disorder, unspecified; F32.A Depression, unspecified
CPT/HCPCS: 28285; 28299; 28485 ×3; 36415; 36416; 73630; 76000; 80048; 82962; 85025; C1713; J0330; J0690; J1100; J1200; J2250; J2704; J2765; J3010; J3490; J7030

== ENCOUNTER → 2022-03-10 13:23 | Outpatient (BNVA) | payer OTHER, SELFPAY | PROVIDERS: PCP Nurse Practitioner; Visit Provider Podiatrist Foot & Ankle Surgery | DX: Z98.890 Other specified postprocedural states (principal) | CPT/HCPCS: 73630; 99024; 99215 ==

== ENCOUNTER → 2022-03-15 15:26 | Outpatient (BNVA) | payer OTHER, SELFPAY | PROVIDERS: PCP Nurse Practitioner; Visit Provider Podiatrist Foot & Ankle Surgery | DX: Z98.890 Other specified postprocedural states (principal) | CPT/HCPCS: 99024 ==

== ENCOUNTER → 2022-03-24 11:27 | Outpatient (BNVA) | payer OTHER, SELFPAY | PROVIDERS: PCP Nurse Practitioner; Visit Provider Podiatrist Foot & Ankle Surgery | DX: Z98.890 Other specified postprocedural states (principal) | CPT/HCPCS: 73630; 99024 ==

== ENCOUNTER → 2022-03-25 11:33 | Outpatient (BNVA) | payer OTHER, SELFPAY | PROVIDERS: PCP Nurse Practitioner; Visit Provider Internal Medicine Cardiovascular Disease | DX: I20.1 Angina pectoris with documented spasm (principal); I10 Essential (primary) hypertension | CPT/HCPCS: 99214 ==

== ENCOUNTER 2022-03-30 08:05 | Outpatient (CLI) | payer OTHER, SELFPAY ==
--- NOTE | 2022-03-30 08:16 | MM_ITS ---
WS: [id number] BILATERAL SCREENING DIGITAL TOMOSYNTHESIS MAMMOGRAM WITH CAD HISTORY: SCREENING COMPARISON: 12/06/2019 and 08/27/2014 Bilateral CC and MLO views with tomosynthesis and synthetic mammography submitted. Computer aided det ection analyzed. Breast composition: There are scattered areas of fibroglandular density. No suspicious masses, microc alcifications or architectural distortion. Benign coarse calcification in the anterior LEFT breast. MM/[place] [id number] IMPRESSION: BI-RADS: 2-Benign FOLLOW UP: 1 Year Follow-up
== END 2022-03-30 08:06 | disposition home or self-care (01) ==
LOC: RAD 08:11
PROVIDERS: PCP Nurse Practitioner; Visit Provider Nurse Practitioner
DX: Z12.31 Encounter for screening mammogram for malignant neoplasm of breast (principal); Z98.890 Other specified postprocedural states
CPT/HCPCS: 77063; 77067; 99024

== ENCOUNTER → 2022-04-01 08:49 | Outpatient (BNVA) | payer OTHER, SELFPAY | PROVIDERS: PCP Nurse Practitioner; Visit Provider Nurse Practitioner Family | DX: R55 Syncope and collapse (principal); R07.9 Chest pain, unspecified; I20.1 Angina pectoris with documented spasm; Z87.891 Personal history of nicotine dependence; E78.5 Hyperlipidemia, unspecified; I10 Essential (primary) hypertension; I45.2 Bifascicular block | CPT/HCPCS: 36415; 80048; 83880; 85025; 93005; 99214 ==

== ENCOUNTER → 2022-04-07 14:01 | Outpatient (BNVA) | payer OTHER, SELFPAY | PROVIDERS: PCP Nurse Practitioner; Visit Provider Podiatrist Foot & Ankle Surgery | DX: Z98.890 Other specified postprocedural states (principal) | CPT/HCPCS: 73630; 99024 ==

== ENCOUNTER → 2022-04-20 10:31 | Outpatient (BNVA) | payer OTHER, SELFPAY | PROVIDERS: PCP Nurse Practitioner; Visit Provider Internal Medicine | DX: E11.65 Type 2 diabetes mellitus with hyperglycemia (principal); E66.01 Morbid (severe) obesity due to excess calories; Z68.42 Body mass index [BMI] 45.0-49.9, adult; E11.42 Type 2 diabetes mellitus with diabetic polyneuropathy; K31.84 Gastroparesis; E16.2 Hypoglycemia, unspecified; E78.2 Mixed hyperlipidemia; Z79.4 Long term (current) use of insulin | CPT/HCPCS: 99214 ==

== ENCOUNTER → 2022-05-10 13:26 | Outpatient (BNVA) | payer OTHER, SELFPAY | PROVIDERS: PCP Nurse Practitioner; Visit Provider Podiatrist Foot & Ankle Surgery | DX: S92.341A Displaced fracture of fourth metatarsal bone, right foot, initial encounter for closed fracture (principal); S90.31XA Contusion of right foot, initial encounter; W19.XXXA Unspecified fall, initial encounter | CPT/HCPCS: 73630; 99213 ==

== ENCOUNTER → 2022-05-26 13:25 | Outpatient (BNVA) | payer OTHER, SELFPAY | PROVIDERS: PCP Nurse Practitioner; Visit Provider Podiatrist Foot & Ankle Surgery | DX: Z98.890 Other specified postprocedural states (principal); S90.31XA Contusion of right foot, initial encounter; X58.XXXA Exposure to other specified factors, initial encounter | CPT/HCPCS: 73630; 99213 ==

== ENCOUNTER 2022-06-16 14:16 | Observation (INO) | payer OTHER, SELFPAY ==
[2022-06-16] VITALS (47 sets, daily range): BP systolic 142–171; BP diastolic 77–112; PULSE 79–120; RESP 12–29; TEMP 36.4–37.1; O2SAT 92–98; BMI 46.2
--- NOTE | 2022-06-16 14:18 | W.ED.CHESTPA ---
HPI - Chest Pain General: Chief Complaint: Chest Pain Stated Complaint: CHEST PAIN Time Seen by Provider: 06/16/22 14:18 History of Present Illness: Ms Kay is a 62-year-old lady with history of hypertension, hyperlipidemia, Prinzmetal angina, obesity presenting to the emergency department due to chest pain. She reports onset of symptoms approximately 4 AM, unsure if she woke up normally with it or if it caused her to wake up. Describes substernal left anterior chest heaviness associated with dyspnea, sweats, nausea, generalized malaise. Intensity since onset has waxed and waned. At worst has been severe. Does endorse some radiation of the neck and left arm. Some improvement with nitroglycerin. No other specific changes in health, exacerbating, or alleviating factors identified. Onset (ago): hour(s) Timing of current episode: constant Prior episodes: Yes Onset: during rest Pain location: substernal and left chest Pain radiation: left arm and neck Severity: moderate Quality: heaviness Relieving factors: nothing Exacerbating factors: nothing Associated symptoms: Reports diaphoresis, dyspnea and nausea Review of Systems General: Reports: 10 or more systems reviewed and unremarkable except in HPI and below Const: Reports: diaphoresis Resp: Reports: dyspnea GI: Reports: nausea PFSH ED PFSH: Medical History Anxiety and depression Diagnosed in the and controlled well on medication at this time managed by primary care provider nurse practitioner Nitin. Chronic back pain Associated with neuropathy. Takes Lyrica for the neuropathy. Does take hydrocodone as needed for pain. Coronary artery disease due to type 2 diabetes mellitus Diabetic neuropathy Gastroparesis GERD (gastroesophageal reflux disease) Controlled on medication Hyperlipidemia Hypertension Diagnosed in 2018 managed by primary care provider nurse practitioner Nitin Metatarsalgia of both feet No pertinent past medical history NegHx: thyroid, dvt/pe PCP: Tania Post traumatic stress disorder (PTSD) Prinzmetal angina Uncontrolled type 2 diabetes mellitus Surgical History H/O esophagogastroduodenoscopy (09/01/21) History of back surgery Pain pump insertion, removed in 2014 History of coronary angiogram 06/2021 History of surgery neck lipoma removal- Hx of breast surgery ductectomy from the left breast done in her late 30s Hx of oophorectomy 1980---right lower quadrant incision-right ovary and appendix were removed when she presented with pain to the emergency room S/P appendectomy 1980-right lower quadrant incision, right ovary and appendix were removed. S/P cholecystectomy Laparoscopic procedure performed in 1992 S/P hysterectomy 1985--vaginal hysterectomy with left oophorectomy performed for a uterine mass she was told that there was no cancer but there were some abnormal cells and it was recommended that she have chemotherapy for 6 weeks however she did only 2 weeks and then did not finish the rest of treatment. S/P left knee arthroscopy S/P tonsillectomy and adenoidectomy As a child S/P tubal ligation 1982-immediately . Family History Mother Heart disease Hypertension Ovarian cancer Diagnosed at age 34 Suicide Thyroid condition Uterine cancer Diagnosed at age 34, unsure of origin Father Heart disease Thyroid condition Sister Thyroid condition Family/Other Thyroid condition [place], granddaughter Other Diabetes Social History Quit status (tobacco): has quit using tobacco Second hand smoke exposure: No Smoking risk assessment/counseling performed?: Yes Alcohol intake: former Desire information about alcohol rehabilitation?: No Counseling given: No Desire information about substance/drug rehabilitation?: No Counseling given: No Adopted: No Caregiver/support person: No Lives independently: Yes Housing: House Marital status: Number of children: 2 Highest education level completed: Associate Degree: Occupational, Technical, Vocational Program service: Yes Pets and animals: Yes History of recent travel: No Sexually active: Yes Gricel/Gnosticism: Mandaen Special gricel needs: No Agree to transfusion: No Physical Exam Const: COMMON NORMALS: alert GENERAL APPEARANCE: cooperative and well developed HENMT: COMMON NORMALS: normocephalic and atraumatic HEAD & SCALP: normocephalic and atraumatic Eye: COMMON NORMALS: conjunctivae normal CONJUNCTIVA: Yes conjunctivae normal SCLERA: sclerae normal Neck/C-Spine: COMMON NORMALS: supple GENERAL: Yes trachea midline Resp: COMMON NORMALS: clear to auscultation bilaterally EFFORT & INSPECTION: Yes able to speak in complete sentences AUSCULTATION: clear to auscultation bilaterally Cardio: COMMON NORMALS: regular rate and regular rhythm RATE: regular rate RHYTHM: regular rhythm GI: COMMON NORMALS: Soft to palpation PALPATION: Yes Soft to palpation and No Tenderness to palpation present (GI) Extremity: GENERAL: Yes normal exam except as noted and No edema Neuro: COMMON NORMALS: moves all extremities SENSORIUM/ORIENTATION: Yes alert and No Orientation impaired Psych: COMMON NORMALS: mental status grossly normal and Normal thought process present THOUGHT PROCESS: Normal thought process present Course Vital Signs: Vital signs: Vital Signs Temperature 98 F 06/17/22 19:03 Pulse Rate 89 06/17/22 19:03 Respiratory Rate 16 06/17/22 19:03 Blood Pressure 126/76 06/17/22 19:03 Pulse Oximetry 95 06/17/22 19:03 Oxygen Delivery Me thod 06/16/22 23:51 MDM - Chest Pain Medical Decision Making 62-year-old lady with complex history presenting with chest discomfort. Exam as above. EKG notable for sinus rhythm with right bundle branch block, normal RI interval and QTc, no STEMI. In comparison to prior the patient also now has a left anterior fascicular block which is new. Laboratory studies notable for no leukocytosis, mildly elevated serum hemoglobin likely reflecting chronic hemoconcentration, normal platelet count. Metabolic panel without significant derangement and similar to prior. Negative initial and 2-hour delta troponin. Chest x-ray with no lobar consolidation or pneumothorax, also similar to prior. During ED course patient treated with Maalox, analgesia, nitroglycerin, she had previously received aspirin. Given that the patient has had prior cardiac evaluation I discussed the case with cardiology. Given that patient is still having pain despite treatment and new EKG findings she does warrant repeat cardiac evaluation. The most likely etiology of patient's symptoms is angina. The results of ED evaluation were discussed with the patient including plan for admission due to requirement for level of care not available if discharged to prevent significant worsening/deterioration. Patient agreeable with plan. Discussed with hospitalist service who was agreeable to admit patient. Medical Records I reviewed the patient's medical records. Lab Data I reviewed the patient's lab results. 06/17/22 04:47 06/17/22 04:47 Radiology Impressions Chest X-Ray 06/16/22 14:19 IMPRESSION: No acute findings. Laboratory Results WBC 9.9 10^3/uL (4.0-10.0) 06/16/22 14:00 RBC 5.38 10^6/uL (4.1-5.3) H 06/16/22 14:00 Hgb 15.8 g/dL (11.5-15.3) H 06/16/22 14:00 Hct 49.0 % (37.0-47.0) H 06/16/22 14:00 MCV 91.1 fl (81-99) 06/16/22 14:00 MCH 29.4 pg (28.0-34.0) 06/16/22 14:00 MCHC 32.2 g/dL (30.0-36.0) 06/16/22 14:00 RDW 13.3 % (12.1-15.1) 06/16/22 14:00 Plt Count 230 10^3/cmm (130-400) 06/16/22 14:00 MPV 12.3 fL (7.4-10.4) H 06/16/22 14:00 Neut % (Auto) 53.7 % 06/16/22 14:00 Lymph % (Auto) 33.6 % 06/16/22 14:00 [place] % (Auto) 9.5 % 06/16/22 14:00 Eos % (Auto) 1.9 % 06/16/22 14:00 Baso % (Auto) 0.7 % 06/16/22 14:00 Neut # (Auto) 5.31 10^3/uL (1.8-7.7) 06/16/22 14:00 Lymph # (Auto) 3.3 10^3/uL (0.8-4.8) 06/16/22 14:00 [place] # (Auto) 0.9 10^3/uL (0.2-0.9) 06/16/22 14:00 Eos # (Auto) 0.2 10^3/uL (0.0-0.8) 06/16/22 14:00 Baso # (Auto) 0.1 10^3/uL (0.0-0.1) 06/16/22 14:00 Nucleated RBC % (auto) 0 % 06/16/22 14:00 Nucleated RBCs # 0.0 /100WBC 06/16/22 14:00 D-Dimer 0.58 ug/mIFEU (0-0.59) 06/16/22 14:00 Sodium 139 mmol/L (136-145) 06/16/22 14:00 Potassium 3.7 mmol/L (3.5-5.1) 06/16/22 14:00 Chloride 102 mmol/L (98-107) 06/16/22 14:00 Carbon Dioxide 25 mmol/L (22-29) 06/16/22 14:00 Anion Gap 15.7 (5-19) 06/16/22 14:00 BUN 10 mg/dL (8-23) 06/16/22 14:00 Creatinine 0.6 mg/dL (0.5-0.9) 06/16/22 14:00 GFR Calculation 102.0 mL/min (90-130) 06/16/22 14:00 Glucose 208 mg/dL (65-115) H 06/16/22 14:00 Calculated Osmolality 293 mOsm/kg (285-295) 06/16/22 14:00 Calcium 9.0 mg/dL (8.5-10.5) 06/16/22 14:00 Total Bilirubin 0.2 mg/dL (0.15-1.2) 06/16/22 14:00 AST 22 U/L (0-32) 06/16/22 14:00 ALT 23 U/L (0-33) 06/16/22 14:00 Alkaline Phosphatase 149 U/L (35-105) H 06/16/22 14:00 Troponin T Baseline 6 ng/L (0-10) 06/16/22 14:00 Troponin T 120 Minute 6.00 ng/L (0-10) 06/16/22 16:10 Delta Troponin T 0 ABS# (0-10) 06/16/22 16:10 NT-Pro-B Natriuret Pep 9 pg/mL (0-125) 06/16/22 14:00 Total Protein 7.5 g/dL (6.6-8.7) 06/16/22 14:00 Albumin 4.1 g/dL (3.5-5.2) 06/16/22 14:00 Globulin 3.4 g/dL (1.3-4.6) 06/16/22 14:00 Lipase 43 U/L (13-60) 06/16/22 14:00 Discharge Plan Discharge Patient Disposition: Placed in Observation Admit Provider: Koko Rush Clinical Impression: Chest pain Discharge Diet: Usual diet Discharge Activity: Resume usual activity Coding Level of Care Code ED Ed Case Manager for Chg Fwd Exam Comprehensive
--- NOTE | 2022-06-16 14:19 | XRR_ITS ---
PROCEDURE INFORMATION: Exam: XR Chest Exam date and time: 06/16/2022 1:51 PM Age: 62 years old Clinical indication: Radiating and left-sided; Patient HX: Chest pain. She reports onset of symptoms approximately 4 am, unsure if she woke up normally with it or if it caused her to wake up. Describes substernal left anterior chest heaviness associated with dyspnea, sweats, nausea, generalized malaise. Intensity since onset has waxed and waned. At worst has been severe. Does endorse some radiation of the neck and left arm. ; Additional info: Cp TECHNIQUE: Imaging protocol: Radiologic exam of the chest. Views: 1 view. COMPARISON: CR XR chest 1V portable [id number] 07/05/2021 4:14 PM FINDINGS: Lungs: Unremarkable. No consolidation. Pleural spaces: Unremarkable. No pleural effusion. No pneumothorax. Heart/Mediastinum: Unremarkable. No cardiomegaly. Bones/joints: Unremarkable. XR/XR chest 1V portable [id number] IMPRESSION: No acute findings.
--- NOTE | 2022-06-16 14:26 | ECG_ITS ---
[facility] Test Date: 2022-06-16 Pat Name: Randi Kay Department: Room: Gender: Female Composition Tile Layer: : 1960 Requested By: Stanton Johnson Order Number: [id number] Delores MD: Luis A Adair M.D. Measurements Intervals [place] Rate: 82 P: -6 TX: 163 QRS: -59 QRSD: 158 T: 3 QT: 403 QTc: 473 Interpretive Statements SINUS RHYTHM RIGHT BUNDLE BRANCH BLOCK [120+ ms QRS DURATION, UPRIGHT V1, 40+ ms S IN I/aVL/V4/V5/V6] LEFT ANTERIOR FASCICULAR BLOCK [QRS AXIS <= -45, QR IN I, RS IN II] Compared to ECG 07/06/2021 16:08:50 Left anterior fascicular block now present Sinus bradycardia no longer present Left-axis deviation no longer present Electronically Signed On 06-16-2022 14:40:44 DELIVERY ROOM SUPERVISOR by Luis A Adair M.D. [id number]
[2022-06-16] MEDS: nitroglycerin 0.4 mg sublingual Tablet SUBLINGUAL ×3 (15:13→23:50)
[2022-06-16 15:14] LABS: Basophils # 0.1 10^3/uL (0.0-0.1); Basophils % 0.7 %; Eosinophils # 0.2 10^3/uL (0.0-0.8); Eosinophils % 1.9 %; Hemoglobin 15.8 g/dL (11.5-15.3); Lymphocytes # 3.3 10^3/uL (0.8-4.8); Lymphocytes % 33.6 %; Mean Corpuscular HGB Conc 32.2 g/dL (30.0-36.0); Mean Corpuscular Hemoglobin 29.4 pg (28.0-34.0); Mean Corpuscular Volume 91.1 fl (81-99); Mean Platelet Volume 12.3 fL (7.4-10.4); Monocytes # 0.9 10^3/uL (0.2-0.9); Monocytes % 9.5 %; Neutrophils # 5.31 10^3/uL (1.8-7.7); Neutrophils % 53.7 %; Nucleated Red Blood Cells % 0 %; Platelet Count 230 10^3/cmm (130-400); Red Blood Count 5.38 10^6/uL (4.1-5.3); Red Cell Distribution Width 13.3 % (12.1-15.1); White Blood Count 9.9 10^3/uL (4.0-10.0)
--- NOTE | 2022-06-16 15:23 | PC.PHAR ---
waiting for [facility] to fax med list
[2022-06-16 15:26] LABS: Troponin(5th) Baseline 6 ng/L (0-10)
[2022-06-16 15:36] LABS: Alanine Aminotransferase 23 U/L (0-33); Albumin Level 4.1 g/dL (3.5-5.2); Alkaline Phosphatase 149 U/L (35-105); Anion Gap 15.7 (5-19); Aspartate Amino Transferase 22 U/L (0-32); Blood Urea Nitrogen 10 mg/dL (8-23); Carbon Dioxide 25 mmol/L (22-29); Chloride 102 mmol/L (98-107); Globulin 3.4 g/dL (1.3-4.6); Glucose 208 mg/dL (65-115); Lipase 43 U/L (13-60); NT Pro B Type Natriuretic Pept 9 pg/mL (0-125); Osmolality Calculated 293 mOsm/kg (285-295); Potassium 3.7 mmol/L (3.5-5.1); Sodium 139 mmol/L (136-145); Total Bilirubin 0.2 mg/dL (0.15-1.2); Total Protein 7.5 g/dL (6.6-8.7)
--- NOTE | 2022-06-16 16:19 | ECG_ITS ---
[facility] Test Date: 2022-06-16 Pat Name: Randi Kay Department: Room: Gender: Female Silk Spooler: : 1960 Requested By: Stanton Johnson Order Number: [id number] Delores MD: Luis A Adair M.D. Measurements Intervals [place] Rate: 87 P: -15 CT: 131 QRS: -71 QRSD: 154 T: -8 QT: 413 QTc: 497 Interpretive Statements SINUS RHYTHM RIGHT BUNDLE BRANCH BLOCK [120+ ms QRS DURATION, UPRIGHT V1, 40+ ms S IN I/aVL/V4/V5/V6] LEFT ANTERIOR FASCICULAR BLOCK [QRS AXIS <= -45, QR IN I, RS IN II] Compared to ECG 06/16/2022 14:26:30 No significant changes Electronically Signed On 06-16-2022 17:01:33 BUSINESS MANAGEMENT SPECIALIST by Luis A Adair M.D. [id number]
[2022-06-16] MEDS: alum-mag-hydroxide-sime 30 mL UDC PO (16:30)
[2022-06-16 17:25] LABS: Troponin 5 2HR Delta 0 ABS# (0-10)
[2022-06-16] MEDS: morphine 4 mg/mL SDV 1 mL IVP ×2 (17:33→17:41)
--- NOTE | 2022-06-16 18:24 | P.HP_ITS ---
Providers/Chief Complaint Primary Care Provider: DELMA Lua Chief Complaint: CHEST PAIN History of Present Illness Randi Kay is a 62 year old female Medications/Allergies Home Medications Medication Instructions Recorded Confirmed Last Taken Type cholecalciferol (vitamin D3) 100 100 mcg PO DAILY 01/28/21 05/26/22 02/24/22 History mcg (4,000 unit) tablet topiramate 50 mg tablet (Topamax) 100 mg PO BID 01/28/21 05/26/22 02/24/22 H istory pregabalin 75 mg capsule (Lyrica) 300 mg PO BID 03/01/21 05/26/22 02/24/22 History albuterol sulfate 90 mcg/actuation 2 puff inhalation Q6H PRN 04/18/21 05/26/22 08/31/21 Rx aerosol inhaler (Ventolin HFA) shortness of breath or wheezing #8.5 grams buspirone 30 mg tablet 15 mg PO TID 05/11/21 05/26/22 02/25/22 History blood-glucose meter,continuous #1 ea 05/17/21 05/26/22 08/31/21 Rx (Dexcom G6 Family Service Counselor) blood-glucose sensor (Dexcom G6 #3 ea 05/17/21 05/26/22 08/31/21 Rx Sensor device) duloxetine 60 mg capsule,delayed 90 mg PO DAILY 06/07/21 05/26/22 02/24/22 History release (Cymbalta) Custom Molded Orthotics #1 ea 06/09/21 05/26/22 08/31/21 Rx Night splint to the right #1 ea 06/09/21 05/26/22 08/31/21 Rx alprazolam 0.25 mg tablet (Xanax) 0.25 mg PO DAILY PRN panic 06/09/21 05/26/22 08/31/21 History attack(s) amlodipine 10 mg tablet 5 mg PO DAILY coronary vasospasm 07/14/21 05/26/22 02/25/22 Rx #90 tabs lisinopril 2.5 mg tablet 2.5 mg PO DAILY #90 tabs 07/14/21 05/26/22 02/24/22 Rx metoprolol tartrate 25 mg tablet 12.5 mg PO BID #60 tabs 07/14/21 05/26/22 02/24/22 Rx mecobalamin (vitamin B12) 10,000 10,000 mcg IM DIRECTED 07/19/21 05/26/22 02/24/22 History mcg solution for injection nitroglycerin 0.4 mg sublingual 0.4 mg sublingual Q5M PRN Chest 07/19/21 05/26/22 08/31/21 History tablet Pain clonidine HCl 0.1 mg tablet 0.1 mg PO .HS 08/26/21 05/26/22 02/24/22 History insulin aspart U-100 100 unit/mL See Rx Instructions .Route 10/18/21 05/26/22 02/24/22 Rx (3 mL) subcutaneous pen (Novolog .COMPLEX #45 mL FlexPen U-100 Insulin aspart) omeprazole 40 mg capsule,delayed 40 mg PO DAILY 10/18/21 05/26/22 02/24/22 History release prazosin 2 mg capsule 6 mg PO DIRECTED 10/18/21 05/26/22 02/24/22 History insulin glargine 100 unit/mL (3 10 unit (0.1 mL) SUBCUT DAILY #30 11/24/21 05/26/22 02/24/22 Rx mL) subcutaneous pen (Lantus mL Solostar U-100 Insulin) mupirocin 2 % topical ointment 1 applic topical BID 2 weeks #22 12/14/21 05/26/22 Unknown Rx grams Cam Boot to the Right #1 ea 01/17/22 05/26/22 Unknown Rx escitalopram oxalate 5 mg tablet 2.5 mg PO DAILY 03/25/22 05/26/22 Unknown History (Lexapro) mirtazapine 15 mg tablet (Remeron) 15 mg PO DAILY 03/25/22 05/26/22 Unknown History spironolactone 25 mg tablet 25 mg PO DAILY PRN 03/25/22 05/26/22 Unknown History isosorbide mononitrate 30 mg 30 mg PO BID #60 tabs 04/01/22 05/26/22 Unknown Rx tablet,extended release 24 hr blood-glucose transmitter (Dexcom #1 ea 04/19/22 05/26/22 Unknown Rx G6 Transmitter device) flash glucose scanning reader #1 ea 04/19/22 05/26/22 Unknown Rx (FreeStyle Nael 2 [place]) flash glucose sensor (FreeStyle #6 ea 04/19/22 05/26/22 Unknown Rx Nael 2 Sensor kit) semaglutide 2 mg/dose (8 mg/3 mL) 2 mg (0.75 mL) SUBCUT .weekly #9 mL 04/20/22 05/26/22 Unknown Rx subcutaneous pen injector (Ozempic) conjugated estrogens 0.625 mg/gram 0.625 mg vaginal DAILY #42.5 grams 05/10/22 05/26/22 Unknown Rx vaginal cream (Premarin) Allergies Allergy/AdvReac Type Severity Reaction Status Date / Time bee venom protein (honey bee) Allergy anaphylaxis Verified 05/10/22 13:28 Influenza Virus Vaccines Allergy anaphylacti Verified 05/10/22 13:28 c mushroom Allergy anaphylaxis Verified 05/10/22 13:28 ondansetron [From Zofran] Allergy Dystonia Verified 05/10/22 13:28 tetracycline Allergy Rash, Verified 05/10/22 13:28 shortness of breath trazodone Allergy Rash, Verified 05/10/22 13:28 trouble breathing PFSH Acute PFSH: Medical History Anxiety and depression Diagnosed in the and controlled well on medication at this time managed by primary care provider nurse practitioner Nitin. Chronic back pain Associated with neuropathy. Takes Lyrica for the neuropathy. Does take hydrocodone as needed for pain. Coronary artery disease due to type 2 diabetes mellitus Diabetic neuropathy Gastroparesis GERD (gastroesophageal reflux disease) Controlled on medication Hyperlipidemia Hypertension Diagnosed in 2018 managed by primary care provider nurse jami Taveras Metatarsalgia of both feet No pertinent past medical history NegHx: thyroid, dvt/pe PCP: Tania Post traumatic stress disorder (PTSD) Prinzmetal angina Uncontrolled type 2 diabetes mellitus Surgical History H/O esophagogastroduodenoscopy (09/01/21) History of back surgery Pain pump insertion, removed in 2014 History of coronary angiogram 06/2021 History of surgery neck lipoma removal- Hx of breast surgery ductectomy from the left breast done in her late 30s Hx of oophorectomy 1980---right lower quadrant incision-right ovary and appendix were removed when she presented with pain to the emergency room S/P appendectomy 1980-right lower quadrant incision, right ovary and appendix were removed. S/P cholecystectomy Laparoscopic procedure performed in 1992 S/P hysterectomy 1985--vaginal hysterectomy with left oophorectomy performed for a uterine mass she was told that there was no cancer but there were some abnormal cells and it was recommended that she have chemotherapy for 6 weeks however she did only 2 weeks and then did not finish the rest of treatment. S/P left knee arthroscopy S/P tonsillectomy and adenoidectomy As a child S/P tubal ligation 1982-immediately . Family History Mother Heart disease Hypertension Ovarian cancer Diagnosed at age 34 Suicide Thyroid condition Uterine cancer Diagnosed at age 34, unsure of origin Father Heart disease Thyroid condition Sister Thyroid condition Family/Other Thyroid condition [place], granddaughter Other Diabetes Social History Quit status (tobacco): has quit using tobacco Second hand smoke exposure: No Smoking risk assessment/counseling performed?: Yes Alcohol intake: former Desire information about alcohol rehabilitation?: No Counseling given: No Desire information about substance/drug rehabilitation?: No Counseling given: No Adopted: No Caregiver/support person: No Lives independently: Yes Housing: House Marital status: Number of children: 2 Highest education level completed: Associate Degree: Occupational, Technical, Vocational Program service: Yes Pets and animals: Yes History of recent travel: No Sexually active: Yes Gricel/Sikhism: Synagogue Special gricel needs: No Agree to transfusion: No Vitals/I&O/Wt Last Vital Signs Temp 98.0 F 06/16/22 14:23 Pulse 90 06/16/22 14:23 Resp 18 06/16/22 14:23 BP 171/90 06/16/22 14:23 Pulse Ox 96 06/16/22 14:23 O2 Del Method 06/16/22 14:23 Weight last 48 hrs Weight 133.81 kg Data 06/16/22 14:00 06/16/22 14:00 Coding Level of Care Code Acute Code for Chg Fwd
--- NOTE | 2022-06-16 18:29 | ECG_ITS ---
[facility] Test Date: 2022-06-17 Pat Name: Randi Kay Department: Room: 255 Gender: Female Electronic Game Developer: : 1960 Requested By: Manjula Rai Order Number: [id number] Delores MD: Luis A Adair M.D. Interpretive Statements NAME OF STUDY: LEXISCAN SESTAMIBI STRESS TEST INDICATION: [Chest Pain, ] Procedure: At the baseline, the blood pressure was 139/88 mmHg with a heart rate of 72 bpm. The electrocardiogram showed normal sinus rhythm, right bundle branch block with normal ST and T's. The Lexiscan was infused over a period of 20 seconds. A total of 0.4 mg of Lexiscan was infused. The stress phase was continued for a total of 5 minutes. Heart rate was at the end of stress phase was 95 bpm and a blood pressure of 139/87 mmHg. The EKG at the peak infusion revealed normal sinus rhythm with no significant ST-T wave changes. Sestamibi was injected 20 seconds after the Lexiscan infusion. Blood pressure at the end of recovery phase was 120/84 mmHg with a heart rate of 91 bpm. Conclusion: 1. Normal EKG response to Lexiscan infusion 2. No Lexiscan induced chest pain or cardiac arrhythmia. 3. Normal blood pressure and heart rate response. 4. Sestamibi/sestamibi perfusion scan pending; see separate report. Electronically Signed On 06-26-2022 19:59:43 FLOW MANAGER by Luis A Adair M.D. [email or web address] [email or web address].Jaman/store/[id number]
[2022-06-16 19:05] LABS: D Dimer 0.58 ug/mIFEU (0-0.59)
[2022-06-16 19:24] LABS: Chol HDL Ratio 3.61 mg/dL (0.0-4.40); Cholesterol 177 mg/dL (0-200); HDL Cholesterol 49 mg/dL (60-100); LDL Cholesterol Calculated 100 mg/dL (50-129); LDL HDL Ratio 2.04 RATIO (0.00-3.22); Thyroid Stimulating Hormone 1.29 uIU/mL (0.27-4.20); Triglycerides 138 mg/dL (0-150)
[2022-06-16 20:02] LABS: Estmated Average Glucose 163; Hemoglobin A1C 7.3 % (4.0-6.0)
--- NOTE | 2022-06-16 20:09 | USCV_ITS ---
Randi Kay Age: 62 Gender: F : 1960 Exam Date: 06/16/2022 20:45 Ordering Phys: Manjula Rai MD Technologist: LOKESH [place] [facility] [place]ication: malaise, dyspnea, HTN, hyperlipidemia, Prinzmetal angina, chest pain today. No history of cardiac intervention per patient. BP: 160 / 112 HR: 88 Rhythm: Sinus Technical Quality: Adequate with OPTISON MEASUREMENTS (Male / Female) Normal Values 2D ECHO LVOT Diameter 2.0 cm LV Ejection Fraction MOD 2C 63.4 % LV Ejection Fraction 2C AL 63.3 % LA Diameter 3.6 cm LA Width 3.3 cm LA Height 5.1 cm RA Width 3.1 cm RA Height 3.7 cm Aorta at Sinotubular Diameter 3.2 cm IVC Diameter 2.4 cm M-MODE Aortic Annulus Diameter 3.5 cm LA Ao Ratio MM 1.1 MV E Point Septal Separation 0.3 cm DOPPLER AV Peak Velocity 124.0 cm/s LVOT Peak Velocity 60.0 cm/s AV Area Cont Eq vti 1.8 cm squared AV Area Cont Eq pk 1.5 cm squared MV Area PHT 3.5 cm squared Mitral E to A Ratio 0.8 MV E' Velocity 28.5 cm/s Mitral E to MV E' Ratio 8.8 Mitral E to LV E' Lateral Ratio 10.6 Mitral E to LV E' Septal Ratio 7.5 TV Peak E Velocity 61.0 cm/s PV Peak Velocity 109.0 cm/s RV Acceleration Time 0.1 s RV Ejection Time 0.3 s RV AcT/ET 0.5 FINDINGS Left Ventricle Left ventricle is normal in size. LV systolic function is normal with EF of 55 to 60%. No regional wall motion abnormalities are seen. Grade 1 diastolic dysfunction Right Ventricle Normal in size and function Right Atrium Normal in size Left Atrium Normal in size Mitral Valve Structurallly normal mitral valve. No significant stenosis or regurgitation Aortic Valve Structurally normal aortic valve. No significant stenosis or regurgitation Tricuspid Valve Mild tricuspid regurgitation. Insufficient TR jet to calculate RVSP. Pulmonic Valve Not well visualized. Trace pulmonic regurgitation. Pericardium Normal Aorta Normal in size IVC Not well-visualized CONCLUSIONS Technically limited quality echocardiogram because of poor ultrasonic windows. LV systolic function is normal with EF 55 to 60%. Grade 1 diastolic dysfunction Mild tricuspid regurgitation Trace pulmonic regurgitation Compared to prior echocardiogram from 07/06/2021, no significant changes seen Luis A Adair MD (Electronically Signed) Final Date: 17 June 2022 14:07 S
[2022-06-16] MEDS: sodium chloride 0.9% 1,000 ML 75 ML IV (20:14)
--- NOTE | 2022-06-16 20:19 | ECG_ITS ---
[facility] Test Date: 2022-06-16 Pat Name: Randi Kay Department: Room: 255 Gender: Female Market President: : 1960 Requested By: Stanton Johnson Order Number: [id number] Delores MD: Luis A Adair M.D. Measurements Intervals [place] Rate: 92 P: 24 NC: 157 QRS: 121 QRSD: 157 T: 64 QT: 423 QTc: 525 Interpretive Statements SINUS RHYTHM RIGHT BUNDLE BRANCH BLOCK [120+ ms QRS DURATION, UPRIGHT V1, 40+ ms S IN I/aVL/V4/V5/V6] LEFT POSTERIOR FASCICULAR BLOCK [QRS AXIS > 109, INFERIOR Q] Compared to ECG 06/16/2022 16:19:18 Left posterior fascicular block now present Left anterior fascicular block no longer present Electronically Signed On 06-17-2022 14:42:45 BANKING SERVICES ADVISOR by Luis A Adair M.D. [id number]
--- NOTE | 2022-06-16 21:08 | P.HP_ITS ---
Providers/Chief Complaint Admitting Physician: Koko Rush Primary Care Provider: DELMA Lua Chief Complaint: CHEST PAIN History of Present Illness Randi Kay is a 62 year old female with a past medical history of hypertension, type 2 diabetes mellitus, diabetic neuropathy, hypertension, hyperlipidemia, former smoker, GERD, history of Prinzmetal angina, angiogram in June 2021 no significant disease, history of left anterior fascicular block, who presents [facility] due to chest pain. Patient tells me that today she noted episodes of severe substernal chest pain something sitting on her chest, nonradiating, no shortness of breath, no palpitations, no lightheadedness, dizziness. She presents to her primary care physician's office, had an EKG done was told that there were significant changes so she was sent by EMS for evaluation. She tells me that she was given nitroglycerin and aspirin which significantly helped with her chest pain she was given it twice specific nitroglycerin which helped with the pain. Currently her chest pain is 5 out of 10 she is getting an echocardiogram, first troponin was 6, her EKG shows sinus rhythm, right bundle branch block, left anterior fascicular block. Review of Systems Const: Denies: fever(s) Eyes: Denies: change in vision Card: Reports: chest pain Resp: Denies: dyspnea GI: Denies: abdominal pain : Denies: difficulty voiding Neuro: Denies: headache(s) Medications/Allergies Home Medications Medication Instructions Recorded Confirmed Last Taken Type cholecalciferol (vitamin D3) 100 100 mcg PO DAILY 01/28/21 06/16/22 06/16/22 History mcg (4,000 unit) tablet topiramate 50 mg tablet (Topamax) 100 mg PO BID 01/28/21 06/16/22 06/16/22 History pregabalin 75 mg capsule (Lyrica) 300 mg PO BID 03/01/21 06/16/22 06/16/22 History albuterol sulfate 90 mcg/actuation 2 puff inhalation Q6H PRN 04/18/21 06/16/22 08/31/21 Rx aerosol inhaler (Ventolin HFA) shortness of breath or wheezing #8.5 grams buspirone 30 mg tablet 15 mg PO TID 05/11/21 06/16/2206/16/23 History blood-glucose meter,continuous #1 ea 05/17/21 05/26/22 08/31/21 Rx (Dexcom G6 Doughnut Maker) blood-glucose sensor (Dexcom G6 #3 ea 05/17/21 05/26/22 08/31/21 Rx Sensor device) duloxetine 60 mg capsule,delayed 90 mg PO DAILY 06/07/21 06/16/22 06/16/22 History release (Cymbalta) Custom Molded Orthotics #1 ea 06/09/21 05/26/22 08/31/21 Rx Night splint to the right #1 ea 06/09/21 05/26/22 08/31/21 Rx alprazolam 0.25 mg tablet (Xanax) 0.25 mg PO DAILY PRN panic 06/09/21 06/16/22 06/16/22 History attack(s) amlodipine 10 mg tablet 5 mg PO DAILY coronary vasospasm 07/14/21 06/16/22 06/16/22 Rx #90 tabs lisinopril 2.5 mg tablet 2.5 mg PO DAILY #90 tabs 07/14/21 06/16/22 06/16/22 Rx metoprolol tartrate 25 mg tablet 12.5 mg PO BID #60 tabs 07/14/21 06/16/22 06/16/22 Rx mecobalamin (vitamin B12) 10,000 10,000 mcg IM DIRECTED 07/19/21 06/16/22 05/16/22 History mcg solution for injection nitroglycerin 0.4 mg sublingual 0.4 mg sublingual Q5M PRN Chest 07/19/21 06/16/22 06/16/22 History tablet Pain clonidine HCl 0.1 mg tablet 0.05 mg PO .HS 08/26/21 06/16/22 06/15/22 History insulin aspart U-100 100 unit/mL See Rx Instructions .Route 10/18/21 06/16/22 06/16/22 Rx (3 mL) subcutaneous pen (Novolog .COMPLEX #45 mL FlexPen U-100 Insulin aspart) omeprazole 40 mg capsule,delayed 40 mg PO DAILY 10/18/21 06/16/22 06/16/22 History release prazosin 2 mg capsule 6 mg PO BEDTIME 0506/16/22 06/15/22 History insulin glargine 100 unit/mL (3 10 unit (0.1 mL) SUBCUT DAILY #30 11/24/21 06/16/22 06/16/22 Rx mL) subcutaneous pen (Lantus mL Solostar U-100 Insulin) Cam Boot to the Right #1 ea 01/17/22 05/26/22 Unknown Rx escitalopram oxalate 5 mg tablet 2.5 mg PO DAILY 03/25/22 06/16/22 06/16/22 History (Lexapro) mirtazapine 15 mg tablet (Remeron) 15 mg PO DAILY 03/25/22 06/16/22 06/16/22 History spironolactone 25 mg tablet 25 mg PO DAILY PRN Blood Pressure 03/25/22 06/16/22 Unknown History isosorbide mononitrate 30 mg 30 mg PO BID #60 tabs 04/01/22 06/16/22 06/16/22 Rx tablet,extended release 24 hr blood-glucose transmitter (Dexcom #1 ea 04/19/22 05/26/22 Unknown Rx G6 Transmitter device) flash glucose scanning reader #1 ea 04/19/22 05/26/22 Unknown Rx (FreeStyle Nael 2 [place]) flash glucose sensor (FreeStyle #6 ea 04/19/22 05/26/22 Unknown Rx Nael 2 Sensor kit) semaglutide 2 mg/dose (8 mg/3 mL) 2 mg (0.75 mL) SUBCUT .weekly #9 mL 04/20/22 06/16/22 06/11/22 Rx subcutaneous pen injector (Ozempic) conjugated estrogens 0.625 mg/gram 0.625 mg vaginal DAILY #42.5 grams 05/10/22 06/16/22 06/14/22 Rx vaginal cream (Premarin) Allergies Allergy/AdvReac Type Severity Reaction Status Date / Time bee venom protein (honey bee) Allergy anaphylaxis Verified 05/10/22 13:28 Influenza Virus Vaccines Allergy anaphylacti Verified 05/10/22 13:28 c mushroom Allergy anaphylaxis Verified 05/10/22 13:28 ondansetron [From Zofran] Allergy Dystonia Verified 05/10/22 13:28 tetracycline Allergy Rash, Verified 05/10/22 13:28 shortness of breath trazodone Allergy Rash, Verified 05/10/22 13:28 trouble breathing PFSH Acute PFSH: Medical History Anxiety and depression Diagnosed in the and controlled well on medication at this time managed by primary care provider nurse practitioner Nitin. Chronic back pain Associated with neuropathy. Takes Lyrica for the neuropathy. Does take hydrocodone as needed for pain. Coronary artery disease due to type 2 diabetes mellitus Diabetic neuropathy Gastroparesis GERD (gastroesophageal reflux disease) Controlled on medication Hyperlipidemia Hypertension Diagnosed in 2017 managed by primary care provider nurse practitioner Nitin Metatarsalgia of both feet No pertinent past medical history NegHx: thyroid, dvt/pe PCP: Tania Post traumatic stress disorder (PTSD) Prinzmetal angina Uncontrolled type 2 diabetes mellitus Surgical History H/O esophagogastroduodenoscopy (09/01/21) History of back surgery Pain pump insertion, removed in 2014 History of coronary angiogram 06/2021 History of surgery neck lipoma removal- Hx of breast surgery ductectomy from the left breast done in her late 30s Hx of oophorectomy 1980---right lower quadrant incision-right ovary and appendix were removed when she presented with pain to the emergency room S/P appendectomy 1980-right lower quadrant incision, right ovary and appendix were removed. S/P cholecystectomy Laparoscopic procedure performed in 1992 S/P hysterectomy 1985--vaginal hysterectomy with left oophorectomy performed for a uterine mass she was told that there was no cancer but there were some abnormal cells and it was recommended that she have chemotherapy for 6 weeks however she did only 2 weeks and then did not finish the rest of treatment. S/P left knee arthroscopy S/P tonsillectomy and adenoidectomy As a child S/P tubal ligation 1982-immediately . Family History Mother Heart disease Hypertension Ovarian cancer Diagnosed at age 34 Suicide Thyroid condition Uterine cancer Diagnosed at age 34, unsure of origin Father Heart disease Thyroid condition Sister Thyroid condition Family/Other Thyroid condition [place], granddaughter Other Diabetes Social History Quit status (tobacco): has quit using tobacco Second hand smoke exposure: No Smoking risk assessment/counseling performed?: Yes Alcohol intake: former Desire information about alcohol rehabilitation?: No Counseling given: No Desire information about substance/drug rehabilitation?: No Counseling given: No Adopted: No Caregiver/support person: No Lives independently: Yes Housing: House Marital status: Number of children: 2 Highest education level completed: Associate Degree: Occupational, Technical, Vocational Program service: Yes Pets and animals: Yes History of recent travel: No Sexually active: Yes Gricel/Islam: Hoahaoism Special gricel needs: No Agree to transfusion: No Vitals/I&O/Wt Last Vital Signs Temp 97.6 F 06/16/22 20:00 Pulse 84 06/16/22 20:00 Resp 21 H 06/16/22 20:00 BP 171/90 06/16/22 20:00 Pulse Ox 96 06/16/22 20:00 O2 Del Method 06/16/22 20:17 Weight last 48 hrs Weight 133.81 kg Physical Exam Const: COMMON NORMALS: no acute distress and patient oriented x3 HENMT: COMMON NORMALS: normocephalic HEAD & SCALP: normocephalic Eye: COMMON NORMALS: Equal, round and reactive pupils present and EOMs intact bilaterally Neck/C-Spine: COMMON NORMALS: no JVD Lymph: LYMPHATIC: no lymphadenopathy noted Resp: COMMON NORMALS: normal respiratory effort, No retractions, No use of accessory muscles and clear to auscultation bilaterally AUSCULTATION: clear to auscultation bilaterally Cardio: COMMON NORMALS: regular rate, regular rhythm, S1 normal heart sound present and S2 normal heart sound present RATE: regular rate RHYTHM: regul ar rhythm HEART SOUNDS: S1 normal heart sound present and S2 normal heart sound present GI: COMMON NORMALS: Normal to inspection, nondistended, normoactive bowel sounds present, Soft to palpation and non-tender OTHER: Obese abdomen, Dexcom device Extremity: COMMON NORMALS: no pedal edema Neuro: COMMON NORMALS: patient oriented x3, CN's II-XII intact bilaterally and moves all extremities Psych: COMMON NORMALS: mental status grossly normal Data 06/16/22 14:00 06/16/22 14:00 A&P Assessment and plan (1) Chest pain: (2) Hyperlipidemia: Qualifiers: Hyperlipidemia type: mixed hyperlipidemia Qualified Code(s): E78.2 - Mixed hyperlipidemia (3) Hypertension: (4) GERD (gastroesophageal reflux disease): (5) Prinzmetal angina: Plan Chest pain -Sounds cardiac in nature, could possibly be Prinzmetal angina -Serial EKGs, serial troponins, telemetry monitoring -Continue aspirin, statin, nitro as needed for chest pain, beta-claudia -Cardiac echo -N.p.o. midnight, cardiac stress test tomorrow morning -Full code -Lovenox for DVT prophylaxis Attestations Medical Necessity Statement*: Patient requires hospitalization, outpatient w ith observation, for chest pain Coding Level of Care Code Acute Code for [facility] Fwd Diagnoses Chest pain R07.9 Hyperlipidemia E78.2 Hyperlipidemia type: mixed hyperlipidemia Hypertension I10 GERD (gastroesophageal reflux disease) K21.9 Prinzmetal angina I20.1
[2022-06-16 21:28] LABS: Glucose Point of Care 119 mg/dL (70-110)
[2022-06-16 21:34] LABS: Troponin 5 6HR Delta 0 ng/L (0-12)
[2022-06-16] MEDS: BuSPIRONE 10 mg Tablet 15 MG PO (22:09)
[2022-06-16] MEDS: metoprolol tartrate 25 mg Tablet 12.5 MG PO (22:10)
[2022-06-17] VITALS (11 sets, daily range): BP systolic 108–145; BP diastolic 74–84; PULSE 73–99; RESP 16–22; TEMP 36.4–36.8; O2SAT 93–96
[2022-06-17] MEDS: nitroglycerin 0.4 mg sublingual Tablet SUBLINGUAL ×4 (00:22→02:28)
[2022-06-17] MEDS: morphine 4 mg/mL SDV 1 mL 1 MG IVP (02:51)
[2022-06-17 05:23] LABS: Basophils # 0.1 10^3/uL (0.0-0.1); Basophils % 0.8 %; Eosinophils # 0.2 10^3/uL (0.0-0.8); Eosinophils % 1.9 %; Hematocrit 45.4 % (37.0-47.0); Hemoglobin 14.7 g/dL (11.5-15.3); Lymphocytes # 3.7 10^3/uL (0.8-4.8); Lymphocytes % 31.5 %; Mean Corpuscular HGB Conc 32.4 g/dL (30.0-36.0); Mean Corpuscular Hemoglobin 29.4 pg (28.0-34.0); Mean Corpuscular Volume 90.8 fl (81-99); Monocytes % 8.2 %; Neutrophils # 6.65 10^3/uL (1.8-7.7); Nucleated Red Blood Cells % 0 %; Platelet Count 206 10^3/cmm (130-400); Red Cell Distribution Width 13.4 % (12.1-15.1); White Blood Count 11.7 10^3/uL (4.0-10.0)
[2022-06-17 05:48] LABS: Troponin T (5th) Once 6 ng/L (0-10)
[2022-06-17 05:55] LABS: Alanine Aminotransferase 19 U/L (0-33); Albumin Level 3.7 g/dL (3.5-5.2); Alkaline Phosphatase 129 U/L (35-105); Anion Gap 15.8 (5-19); Aspartate Amino Transferase 19 U/L (0-32); Blood Urea Nitrogen 11 mg/dL (8-23); Calcium 9.2 mg/dL (8.5-10.5); Carbon Dioxide 22 mmol/L (22-29); Chloride 107 mmol/L (98-107); Globulin 2.9 g/dL (1.3-4.6); Glucose 178 mg/dL (65-115); Magnesium 1.9 mg/dL (1.7-2.3); Osmolality Calculated 296 mOsm/kg (285-295); Potassium 3.8 mmol/L (3.5-5.1); Sodium 141 mmol/L (136-145); Total Bilirubin 0.3 mg/dL (0.15-1.2); Total Protein 6.6 g/dL (6.6-8.7)
[2022-06-17] MEDS: perflutren protein-a microsphr 0.22 mg/mL SDV 3 mL IV (05:56)
[2022-06-17 06:27] LABS: Glucose Point of Care 147 mg/dL (70-110)
[2022-06-17] MEDS: regadenoson 0.4 Mg/5 ml Syringe IVP (08:14)
--- NOTE | 2022-06-17 08:41 | PC.PHAR ---
pt not in room-nurse states she is in nuclear med for a test will try to verify meds when pt back
--- NOTE | 2022-06-17 09:50 | PC.PHAR ---
pt states she takes care of her own medications-pt states her aspirin 81mg daily was dced a month ago-pt states she was taking lasix 20mg daily prn and kcl 10meq daily prn filled on 06/01/22 7d/s-notes are made in the pharmacy comments
[2022-06-17] MEDS: pregabalin 75 mg Capsule 300 MG PO (11:02)
[2022-06-17] MEDS: BuSPIRONE 10 mg Tablet 15 MG PO ×2 (11:04→16:10)
[2022-06-17] MEDS: metoprolol tartrate 25 mg Tablet 12.5 MG PO (11:06)
[2022-06-17] MEDS: aspirin 81 mg EC Tablet PO (11:06)
[2022-06-17] MEDS: pantoprazole DR 40 mg Tablet PO (11:07)
[2022-06-17] MEDS: lisinopril 2.5 mg Tablet PO (11:07)
[2022-06-17] MEDS: isosorbide mononitrate ER 30 mg Tablet PO (11:08)
[2022-06-17] MEDS: amlodipine 10 mg Tablet 5 MG PO (11:08)
[2022-06-17] MEDS: escitalopram 10 mg Tablet 2.5 MG PO (11:09)
[2022-06-17] MEDS: cholecalciferol (vitamin D3) 1,000 unit Tablet 1000 UNIT PO (11:09)
[2022-06-17] MEDS: insulin glargine 100 units/1 mL 10 UNIT SUBCUT (11:25)
[2022-06-17] MEDS: duloxetine 30 MG, duloxetine 60 MG 90 MG PO (11:35)
[2022-06-17 12:27] LABS: Glucose Point of Care 152 mg/dL (70-110)
[2022-06-17] MEDS: insulin lispro 100 unit/1 mL SUBCUT ×2 (12:54→18:10)
--- NOTE | 2022-06-17 16:16 | P.DS_ITS ---
Discharge Providers Date of Admission: 06/16/22 18:01 Date of Discharge: June 17, 2022 Attending Provider at Admission: Koko Rush Attending Provider at Discharge: Manjula Rai MD Primary Care Provider: DELMA Lua Diagnoses at Discharge Discharge Diagnosis (1) Chest pain: Status: Resolved (2) Hyperlipidemia: Status: Acute Qualifiers: Hyperlipidemia type: mixed hyperlipidemia Qualified Code(s): E78.2 - Mixed hyperlipidemia (3) Hypertension: Status: Acute Permanent problem details: Diagnosed in 2018 managed by primary care provider nurse practitioner Nitin (4) GERD (gastroesophageal reflux disease): Status: Acute Permanent problem details: Controlled on medication (5) Prinzmetal angina: Status: Acute Reason for Visit Reason for Visit: CHEST PAIN Brief History: Randi Kay is a 62 year old female with a past medical history of hypertension, type 2 diabetes mellitus, diabetic neuropathy, hypertension, hyperlipidemia, former smoker, GERD, history of Prinzmetal angina, angiogram in June 2021 no significant disease, history of left anterior fascicular block, who presents [facility] due to chest pain.? Patient tells me that today she noted episodes of severe substernal chest pain something sitting on her chest, nonradiating, no shortness of breath, no palpitations, no lightheadedness, dizziness.? She presents to her primary care physician's office, had an EKG done was told that there were significant changes so she was sent by EMS for evaluation.? She tells me that she was given nitroglycerin and aspirin which significantly helped with her chest pain she was given it twice specific nitroglycerin which helped with the pain.? Currently her chest pain is 5 out of 10 she is getting an echocardiogram, first troponin was 6, her EKG shows sinus rhythm, right bundle branch block, left anterior fascicular block. Hospital Course Hospital Course Patient presented with chest pain. Possibly Prinzmetal angina. Had a stress test done which did not show any ischemic results. Echo was also completed. Patient to be discharged home to follow-up with her manager therapy and primary care doctor as an outpatient. Physical Exam Const: COMMON NORMALS: no acute distress and patient oriented x3 HENMT: COMMON NORMALS: normocephalic HEAD & SCALP: normocephalic Eye: COMMON NORMALS: Equal, round and reactive pupils present and EOMs intact bilaterally PUPIL: Yes Equal, round and reactive pupils present Neck/C-Spine: COMMON NORMALS: no JVD Lymph: LYMPHATIC: no lymphadenopathy noted Resp: COMMON NORMALS: normal respiratory effort, No retractions, No use of accessory muscles and clear to auscultation bilaterally AUSCULTATION: clear to auscultation bilaterally Cardio: COMMON NORMALS: no JVD, regular rate, regular rhythm, S1 normal heart sound present and S2 normal heart sound present RATE: regular rate RHYTHM: regular rhythm HEART SOUNDS: S1 normal heart sound present and S2 normal heart sound present GI: COMMON NORMALS: Normal to inspection, nondistended, normoactive bowel sounds present, Soft to palpation and non-tender PALPATION: Yes Soft to palpation OTHER: Obese abdomen, Dexcom device Extremity: COMMON NORMALS: no pedal edema Neuro: COMMON NORMALS: patient oriented x3, CN's II-XII intact bilaterally and moves all extremities Psych: COMMON NORMALS: mental status grossly normal Discharge Data Studies Completed and Pending Completed Studies During Hospitalization Category Date Time Status Sestamibi Stress Test Request Stat Exams 06/16/22 18:29 Draft XR chest 1V portable [id number] Stat Exams 06/16/22 14:19 Completed NM milan perf SPECT r/s* [id number] Routine Nuc Med 06/17/22 18:30 Completed CV. echo wo/w contrast [id number] Urgent Ultrasound 06/16/22 20:09 Completed Radiology Impressions Chest X-Ray 06/16/22 14:19 IMPRESSION: No acute findings. Laboratory Results WBC 11.7 10^3/uL (4.0-10.0) H 06/17/22 04:47 RBC 5.00 10^6/uL (4.1-5.3) 06/17/22 04:47 Hgb 14.7 g/dL (11.5-15.3) 06/17/22 04:47 Hct 45.4 % (37.0-47.0) 06/17/22 04:47 MCV 90.8 fl (81-99) 06/17/22 04:47 MCH 29.4 pg (28.0-34.0) 06/17/22 04:47 MCHC 32.4 g/dL (30.0-36.0) 06/17/22 04:47 RDW 13.4 % (12.1-15.1) 06/17/22 04:47 Plt Count 206 10^3/cmm (130-400) 06/17/22 04:47 MPV 12.0 fL (7.4-10.4) H 06/17/22 04:47 Neut % (Auto) 57.0 % 06/17/22 04:47 Lymph % (Auto) 31.5 % 06/17/22 04:47 [place] % (Auto) 8.2 % 06/17/22 04:47 Eos % (Auto) 1.9 % 06/17/22 04:47 Baso % (Auto) 0.8 % 06/17/22 04:47 Neut # (Auto) 6.65 10^3/uL (1.8-7.7) 06/17/22 04:47 Lymph # (Auto) 3.7 10^3/uL (0.8-4.8) 06/17/22 04:47 [place] # (Auto) 1.0 10^3/uL (0.2-0.9) H 06/17/22 04:47 Eos # (Auto) 0.2 10^3/uL (0.0-0.8) 06/17/22 04:47 Baso # (Auto) 0.1 10^3/uL (0.0-0.1) 06/17/22 04:47 Nucleated RBC % (auto) 0 % 06/17/22 04:47 Nucleated RBCs # 0.0 /100WBC 06/17/22 04:47 D-Dimer 0.58 ug/mIFEU (0-0.59) 06/16/22 14:00 Sodium 141 mmol/L (136-145) 06/17/22 04:47 Potassium 3.8 mmol/L (3.5-5.1) 06/17/22 04:47 Chloride 107 mmol/L (98-107) 06/17/22 04:47 Carbon Dioxide 22 mmol/L (22-29) 06/17/22 04:47 Anion Gap 15.8 (5-19) 06/17/22 04:47 BUN 11 mg/dL (8-23) 06/17/22 04:47 Creatinine 0.6 mg/dL (0.5-0.9) 06/17/22 04:47 GFR Calculation 102.0 mL/min (90-130) 06/17/22 04:47 Glucose 178 mg/dL (65-115) H 06/17/22 04:47 POC Glucose 152 mg/dL (70-110) H 06/17/22 12:12 Estimat Average Glucose 163 06/16/22 18:34 Hemoglobin A1c 7.3 % (4.0-6.0) H 06/16/22 18:34 Calculated Osmolality 296 mOsm/kg (285-295) H 06/17/22 04:47 Calcium 9.2 mg/dL (8.5-10.5) 06/17/22 04:47 Magnesium 1.9 mg/dL (1.7-2.3) 06/17/22 04:47 Total Bilirubin 0.3 mg/dL (0.15-1.2) 06/17/22 04:47 AST 19 U/L (0-32) 06/17/22 04:47 ALT 19 U/L (0-33) 06/17/22 04:47 Alkaline Phosphatase 129 U/L (35-105) H 06/17/22 04:47 Troponin T Gen 5 ng/L 6 ng/L (0-10) 06/17/22 04:47 Troponin T Baseline 6 ng/L (0-10) 06/16/22 14:00 Troponin T 120 Minute 6.00 ng/L (0-10) 06/16/22 16:10 Delta Troponin T 0 ABS# (0-10) 06/16/22 16:10 Troponin T Hi Sens 6Hr 6.00 ng/L (0-10) 06/16/22 20:00 Troponin T Hi Sens 6Hr Delta 0 ng/L (0-12) 06/16/22 20:00 NT-Pro-B Natriuret Pep 9 pg/mL (0-125) 06/16/22 14:00 Total Protein 6.6 g/dL (6.6-8.7) 06/17/22 04:47 Albumin 3.7 g/dL (3.5-5.2) 06/17/22 04:47 Globulin 2.9 g/dL (1.3-4.6) 06/17/22 04:47 Triglycerides 138 mg/dL (0-150) 06/16/22 18:34 Cholesterol 177 mg/dL (0-200) 06/16/22 18:34 LDL Cholesterol, Calc 100 mg/dL (50-129) 06/16/22 18:34 HDL Cholesterol 49 mg/dL (60-100) L 06/16/22 18:34 LDL/HDL Ratio 2.04 RATIO (0.00-3.22) 06/16/22 18:34 Cholesterol/HDL Ratio 3.61 mg/dL (0.0-4.40) 06/16/22 18:34 Lipase 43 U/L (13-60) 06/16/22 14:00 TSH 1.29 uIU/mL (0.27-4.20) 06/16/22 18:34 Vitals Last Vital Signs Temp 97.6 F 06/17/22 12:00 Pulse 73 06/17/22 12:00 Resp 17 06/17/22 12:00 BP 135/79 06/17/22 12:00 Pulse Ox 96 06/17/22 12:00 O2 Del Method 06/16/22 23:51 Discharge Plan Discharge Patient Disposition: Home Condition: Stable Prescriptions: Continued prazosin 2 mg capsule 6 mg PO BEDTIME albuterol sulfate [Ventolin HFA] 90 mcg/actuation HFA aerosol inhaler 2 puff inhalation Q6H PRN (Reason: shortness of breath or wheezing) Qty: 8.5 0RF duloxetine [Cymbalta] 60 mg capsule,delayed release(DR/EC) 90 mg PO QAM nitroglycerin 0.4 mg tablet, sublingual 0.4 mg sublingual Q5M PRN (Reason: Chest Pain) Rx Instructions: do not exceed 3 doses per episode metoprolol tartrate 25 mg tablet 12.5 mg PO BID Qty: 60 0RF (DME) Custom Molded Orthotics See Rx Instructions .Route .MEDSUPPLY Qty: 1 0RF Rx Instructions: As directed (DME) Night splint to the right See Rx Instructions .Route .MEDSUPPLY Qty: 1 0RF Rx Instructions: As directed clonidine HCl 0.1 mg tablet 0.05 mg PO BEDTIME omeprazole 40 mg capsule,delayed release(DR/EC) 40 mg PO QAM insulin aspart U-100 [Novolog FlexPen U-100 Insulin] 100 unit/mL (3 mL) insulin pen See Rx Instructions .ROUTE .COMPLEX Qty: 45 3RF Rx Instructions: sliding scale 5 units or less before each meal spironolactone 25 mg tablet 25 mg PO DAILY PRN (Reason: Blood Pressure) (DME) Cam Boot to the Right See Rx Instructions .Route .MEDSUPPLY Qty: 1 0RF Rx Instructions: As directed isosorbide mononitrate 30 mg tablet extended release 24 hr 30 mg PO BID Qty: 60 3RF Ozempic 2 mg/dose (8 mg/3 mL) pen injector 2 mg SUBCUT .weekly Qty: 9 3RF Rx Instructions: on sat ([facility]) Dexcom G6 Draw Frame Runner Misc See Rx Instructions .Route Qty: 1 0RF Rx Instructions: Check BS 4 times a day. ([facility]) FreeStyle Nael 2 Sensor Kit See Rx Instructions .Route Qty: 6 3RF Rx Instructions: As directed ([facility]) FreeStyle Nael 2 [place] Misc See Rx Instructions .Route Qty: 1 0RF Rx Instructions: As directed ([facility]) Dexcom G6 Transmitter Device See Rx Instructions .ROUTE .COMPLEX Qty: 1 3RF Dose Instruction: USE 1 TRANSMITTER DIRECTED Rx Instructions: USE 1 TRANSMITTER DIRECTED oxybutynin chloride 15 mg Tablet Extended Release 24hr 30 mg PO QAM amlodipine 5 mg Tablet 5 mg PO QAM Xanax 0.5 mg Tablet 0.25 mg PO DAILY PRN (Reason: Anxiety) cyanocobalamin (vitamin B-12) 1,000 mcg/mL Solution 1,000 mcg IM Q30D Remeron 30 mg Tablet 15 mg PO BEDTIME lisinopril 5 mg Tablet 2.5 mg PO BEDTIME estradiol 0.01 % (0.1 mg/gram) Cream 1 g VAGINAL .TWICE A WEEK Rx Instructions: on mon and buspirone 15 mg Tablet 15 mg PO TID Lexapro 10 mg Tablet 5 mg PO QAM Topamax 50 mg Tablet 50 mg PO BID Lyrica 300 mg Capsule 300 mg PO BID Lantus Solostar U-100 Insulin 100 unit/mL (3 mL) Insulin Pen 10 unit SUBCUT QAM Vitamin D3 50 mcg (2,000 unit) Capsule 50 mcg PO QAM naloxone 4 mg/actuation [place],Non-Aerosol 4 mg INTRANASAL Q2M PRN (Reason: overdose) Rx Instructions: spray 1 dose into ONE nostril; alternate nostrils w each dose until help arrives No Action (DME) Dexcom G6 Sensor Device See Rx Instructions .Route Qty: 9 3RF Rx Instructions: As directed Discharge Orders: Discharge Order (Routine); Ordered 06/17/22 Ordered By: Manjula Rai Referrals: Anju Taveras FNP [Primary Care Provider] - 4-7 days (call monday06/20/22) Rosa Fitzpatrick MD [Physician] - 1 week (call monday06/20/22) Discharge Diet: Usual diet Discharge Activity: Resume usual activity Patient Instructions: Angina (DC), Opioid Safety Stand Alone Forms: Work/School Release Discharge Attestations Time Spent in Discharge Care*: other Status at Discharge: Cognitive status at discharge: cognitively intact , Behavioral status at discharge: cooperative , Quality Metrics Clinical Quality Measures [ No reported AMI, CVA or VTE this stay] Coding Level of Care Code Acute Chg FW DC note Diagnoses Chest pain R07.9 Hyperlipidemia E78.2 Hyperlipidemia type: mixed hyperlipidemia Hypertension I10 GERD (gastroesophageal reflux disease) K21.9 Prinzmetal angina I20.1
[2022-06-17 17:37] LABS: Glucose Point of Care 195 mg/dL (70-110)
--- NOTE | 2022-06-17 18:30 | NMCV_ITS ---
NM milan perf SPECT r/s* [id number] Randi Kay Age: 62 Gender: F : 1960 Exam Date: 06/17/2022 07:05 Ordering Phys: Manjula Rai MD Technologist: JARRET Juarez Exam Location: [facility] Indications: CHEST PAIN STRESS TEST Please see separate stress [facility] for full findings IMAGE PROTOCOL Rest/Stress 1 Lexiscan Day Radiopharmaceutical Dose (mCi) Administration Site Administered by Rest: Tc-99m 10.7 IV JARRET Monterroso Sestamibi Stress:Tc-99m 33.0 IV JARRET Juarez Sestamicurly Rest: 17-Jun-2022 60 Discovery 630 Stress: 17-Jun-2022 30 Discovery 630 0.4mg Lexiscan. Images obtained in supine and prone position. SPECT RESULTS Technical Quality: Excellent Raw Data Analysis: Normal Image Corrections: No attenuation or motion correction applied Summed Stress Score: 1 Summed Rest Score: 1 Summed Difference Score: 1 PERFUSION FINDINGS There is a small sized, fixed perfusion defect noted in apical lateral wall. 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 No evidence of ischemia seen. FUNCTIONAL RESULTS (calculated via Gated SPECT) Stress Image LV EF (%): 86 Stress EDV (mL):100 TID: 0.96 Stress ESV (mL):14 FUNCTIONAL FINDINGS: There is normal left ventricular systolic function. IMPRESSIONS 1. 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 No evidence of ischemia. 2. LV systolic function is normal. Luis A Adair MD (Electronically Signed) Final Date: 17 June 2022 09:52 S
--- NOTE | 2022-06-17 19:49 | PC.NURSE ---
1857 Discharge instructions given to patient who voiced understanding. 190 Patient discharged to home per private car with . patient in stable condition.
== END 2022-06-17 19:03 | disposition home or self-care (01) ==
LOC: ER 18:01 → MEDSURG 19:38
PROVIDERS: Family Medicine; Admitting Provider Internal Medicine; Emergency Provider Emergency Medicine; PCP Nurse Practitioner; Visit Provider Internal Medicine
DX: I20.1 Angina pectoris with documented spasm (principal); E78.2 Mixed hyperlipidemia; I10 Essential (primary) hypertension; K21.9 Gastro-esophageal reflux disease without esophagitis; E11.42 Type 2 diabetes mellitus with diabetic polyneuropathy; Z79.4 Long term (current) use of insulin; F41.9 Anxiety disorder, unspecified; F32.A Depression, unspecified; I25.110 Atherosclerotic heart disease of native coronary artery with unstable angina pectoris; Z87.891 Personal history of nicotine dependence
CPT/HCPCS: 36415; 36416; 71045; 78452; 80053; 80061; 82962; 83036; 83690; 83735; 83880; 84443; 84484; 85025; 85378; 93005; 93017; 96372; 96374; 96375; 99285; A9500; C8929; G0378; J1815; J2270; J2785; J7030; Q9956

== ENCOUNTER → 2022-06-27 11:29 | Outpatient (BNVA) | payer OTHER, SELFPAY | PROVIDERS: PCP Nurse Practitioner; Visit Provider Podiatrist Foot & Ankle Surgery | DX: E11.42 Type 2 diabetes mellitus with diabetic polyneuropathy (principal); M20.41 Other hammer toe(s) (acquired), right foot; M20.42 Other hammer toe(s) (acquired), left foot; M21.41 Flat foot [pes planus] (acquired), right foot; M21.42 Flat foot [pes planus] (acquired), left foot; Z79.84 Long term (current) use of oral hypoglycemic drugs | CPT/HCPCS: 73630; 99214 ==

== ENCOUNTER 2022-08-08 18:46 | Emergency (ER) | payer OTHER, SELFPAY ==
[2022-08-08 19:08] VITALS: BP 117/87; PULSE 117; RESP 18; TEMP 36.7; O2SAT 95
[2022-08-08 20:17] LABS: Basophils # 0.1 10^3/uL (0.0-0.1); Basophils % 0.3 %; Eosinophils % 0.1 %; Hematocrit 46.2 % (37.0-47.0); Hemoglobin 15.2 g/dL (11.5-15.3); Lymphocytes # 1.3 10^3/uL (0.8-4.8); Lymphocytes % 8.1 %; Mean Corpuscular HGB Conc 32.9 g/dL (30.0-36.0); Mean Corpuscular Hemoglobin 28.6 pg (28.0-34.0); Mean Corpuscular Volume 86.8 fl (81-99); Mean Platelet Volume 12.6 fL (7.4-10.4); Monocytes # 1.8 10^3/uL (0.2-0.9); Monocytes % 11.5 %; Neutrophils # 12.55 10^3/uL (1.8-7.7); Neutrophils % 78.4 %; Nucleated Red Blood Cells % 0 %; Platelet Count 147 10^3/cmm (130-400); Red Blood Count 5.32 10^6/uL (4.1-5.3); Red Cell Distribution Width 13.3 % (12.1-15.1)
[2022-08-08 20:34] LABS: Alanine Aminotransferase 13 U/L (0-33); Albumin Level 3.7 g/dL (3.5-5.2); Alkaline Phosphatase 152 U/L (35-105); Blood Urea Nitrogen 9 mg/dL (8-23); Calcium 9.6 mg/dL (8.5-10.5); Carbon Dioxide 23 mmol/L (22-29); Chloride 100 mmol/L (98-107); Glomerular Filtration Rate 85.4 mL/min (90-130); Glucose 338 mg/dL (65-115); Lipase 19 U/L (13-60); Osmolality Calculated 296 mOsm/kg (285-295); Sodium 137 mmol/L (136-145); Total Bilirubin 0.6 mg/dL (0.15-1.2); Total Protein 7.7 g/dL (6.6-8.7)
--- NOTE | 2022-08-08 20:45 | ED_ITS ---
HPI - Nausea/Vomiting/Diarrhea General: Chief complaint: Nausea/Vomiting/Diarrhea Stated complaint: n/v x 3days; high BS Time Seen by Provider: 08/08/22 20:44 History of Present Illness: Patient presents to the ER complaints of nausea and vomiting and high blood sugars over the last 3 days. Patient states her normal blood sugars run 140 or less and she has been running up in the 300s last 3 days. Patient is on insulin long-acting and sliding scale which she has been using consistently. Patient says she is starting get fatigued and rundown. 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 Patient did take an additional COVID test at home yesterday which was negative. MD elicited complaint: nausea and vomiting Onset (ago): day(s) (3 days ago) Description of vomiting: watery Associated nausea: Yes Associated abdominal pain: No Severity: moderate Exacerbating factors: none and eating Associated symtoms: Reports nausea; Denies anxiety, change in vision, chest pain, dysuria, headache(s) or palpitations Treatment prior to arrival: other (Patient used Phenergan this morning but threw it up immediately) Review of Systems General: Reports: 10 or more systems reviewed and unremarkable except in HPI and below Const: Denies: fever(s), chills or body aches Eyes: Denies: change in vision or blurry vision ENMT: Denies: throat pain or odynophagia Card: Denies: chest pain, palpitations or irregular heart rhythm Resp: Denies: dyspnea, productive cough or non-productive cough GI: Reports: nausea and vomiting : Denies: flank pain, difficulty voiding or dysuria Musc: Denies: neck pain, back pain or extremity pain Skin/Breast: Denies: rash, pruritus or erythema Neuro: Denies: headache(s), numbness in extremities or weakness in extremities Psych: Denies: anxiety or depression Endo: Denies: polyuria or polydipsia Caleb/Lymph: Denies: easy bruising or easy bleeding All/Imm: Denies: urticaria or throat swelling PFS ED PFSH: Medical History Anxiety and depression Diagnosed in the and controlled well on medication at this time managed by primary care provider nurse practitioner Nitin. Chronic back pain Associated with neuropathy. Takes Lyrica for the neuropathy. Does take hydrocodone as needed for pain. Coronary artery disease due to type 2 diabetes mellitus Diabetic neuropathy Gastroparesis GERD (gastroesophageal reflux disease) Controlled on medication Hyperlipidemia Hypertension Diagnosed in 2018 managed by primary care provider nurse practitioner Nitin Metatarsalgia of both feet No pertinent past medical history NegHx: thyroid, dvt/pe PCP: Tania Post traumatic stress disorder (PTSD) Prinzmetal angina Uncontrolled type 2 diabetes mellitus Surgical History H/O esophagogastroduodenoscopy (09/01/21) History of back surgery Pain pump insertion, removed in 2014 History of coronary angiogram 06/2021 and 05/2022 History of surgery neck lipoma removal- Hx of breast surgery ductectomy from the left breast done in her late 30s Hx of oophorectomy 1980---right lower quadrant incision-right ovary and appendix were removed when she presented with pain to the emergency room S/P appendectomy 1980-right lower quadrant incision, right ovary and appendix were removed. S/P cholecystectomy Laparoscopic procedure performed in 1992 S/P hysterectomy 1985--vaginal hysterectomy with left oophorectomy performed for a uterine mass she was told that there was no cancer but there were some abnormal cells and it was recommended that she have chemotherapy for 6 weeks however she did only 2 weeks and then did not finish the rest of treatment. S/P left knee arthroscopy S/P tonsillectomy and adenoidectomy As a child S/P tubal ligation 1982-immediately . Family History Mother Heart disease Hypertension Ovarian cancer Diagnosed at age 34 Suicide Thyroid condition Uterine cancer Diagnosed at age 34, unsure of origin Father Heart disease Thyroid condition Sister Thyroid condition Family/Other Thyroid condition [place], granddaughter Other Diabetes Social History Quit status (tobacco): has quit using tobacco Second hand smoke exposure: No Smoking risk assessment/counseling performed?: Yes Alcohol intake: former Desire information about alcohol rehabilitation?: No Counseling given: No Desire information about substance/drug rehabilitation?: No Counseling given: No Adopted: No Caregiver/support person: No Lives independently: Yes Housing: House Marital status: Number of children: 2 Highest education level completed: Associate Degree: Occupational, Technical, Vocational Program service: Yes Pets and animals: Yes Sexually active: Yes Gricel/Pentecostal: Sabianism Special gricel needs: No Agree to transfusion: No Physical Exam Const: COMMON NORMALS: no acute distress, average body habitus, patient oriented x3, no limitations, healthy appearing, alert and well nourished HENMT: COMMON NORMALS: normocephalic, atraumatic and hearing grossly normal bilaterally HEAD & SCALP: normocephalic and atraumatic Eye: COMMON NORMALS: Equal, round and reactive pupils present, EOMs intact bilaterally and conjunctivae normal CONJUNCTIVA: Yes conjunctivae normal PUPIL: Yes Equal, round and reactive pupils present Neck/C-Spine: COMMON NORMALS: full ROM, no lymphadenopathy, supple, no JVD and Thyroid normal THYROID: Thyroid normal Chest: COMMONS NORMALS: normal inspection of the chest Resp: COMMON NORMALS: normal respiratory effort, No retractions, No use of accessory muscles and clear to auscultation bilaterally AUSCULTATION: clear to auscultation bilaterally Cardio: COMMON NORMALS: no JVD, regular rate, regular rhythm, S1 normal heart sound present and S2 normal heart sound present RATE: regular rate RHYTHM: regular rhythm HEART SOUNDS: S1 normal heart sound present and S2 normal heart sound present GI: COMMON NORMALS: Normal to inspection, nondistended, normoactive bowel sounds present, Soft to palpation, non-tender, No hepatosplenomegaly present and no masses PALPATION: Yes Soft to palpation and Yes No hepatosplenomegaly present Neuro: COMMON NORMALS: patient oriented x3, CN's II-XII intact bilaterally, m oves all extremities, no focal motor deficits and no sensory deficits noted SENSORIUM/ORIENTATION: Yes alert Psych: COMMON NORMALS: mental status grossly normal, Normal thought process present, cooperative, normal affect and speech normal SPEECH: Yes normal speech THOUGHT PROCESS: Normal thought process present Course Vital Signs: Vital signs: Vital Signs Temperature 98.1 F 08/08/22 19:08 Pulse Rate 117 H 08/08/22 19:08 Respiratory Rate 18 08/08/22 19:08 Blood Pressure 115/93 08/08/22 22:00 Pulse Oximetry 96 08/08/22 22:00 Oxygen Delivery Me thod 08/08/22 19:08 MDM - Nausea/Vomiting/Diarrhea Medical Decision Making Patient presents to the ER with complaints of nausea vomiting and high blood sugar. Patient is a insulin-dependent diabetic he has blood sugars usually running in the 140s or less. Patient states for the last 3 days she has uncontrolled nausea vomiting and blood sugars in the 300s. Upon history and physical exam as well as lab work and imaging which revealed a white count of 16,000 blood glucose of 338 but negative ketones and a urine that showed 3+ protein 4+ glucose 2+ ketones 3+ blood positive nitrites leukocyte Estrace abdominal x-ray was negative. It was determined that patient has urinary tract infection which is causing her nausea vomiting and hyperglycemia. Patient was given Reglan for nausea as well as 1 L normal saline to replace fluid she lost. Patient was given 1 g Rocephin IV and will be discharged home on Cipro 500 mg 1 p.o. twice daily. Patient is to follow-up with her primary care physician in 1 week. Differential Diagnosis Likely gastroenteritis and dehydration; Unlikely traveler's diarrhea, food poisoning, clostridium difficile infection or drug-induced nausea and vomiting Medical Records I reviewed the patient's medical records. Lab Data I reviewed the patient's lab results. 08/08/22 20:00 08/08/22 20:00 Radiology Impressions Abdomen X-Ray 08/08/22 21:05 IMPRESSION: No acute findings. Laboratory Results WBC 16.0 10^3/uL (4.0-10.0) H 08/08/22 20:00 RBC 5.32 10^6/uL (4.1-5.3) H 08/08/22 20:00 Hgb 15.2 g/dL (11.5-15.3) 08/08/22 20:00 Hct 46.2 % (37.0-47.0) 08/08/22 20:00 MCV 86.8 fl (81-99) 08/08/22 20:00 MCH 28.6 pg (28.0-34.0) 08/08/22 20:00 MCHC 32.9 g/dL (30.0-36.0) 08/08/22 20:00 RDW 13.3 % (12.1-15.1) 08/08/22 20:00 Plt Count 147 10^3/cmm (130-400) 08/08/22 20:00 MPV 12.6 fL (7.4-10.4) H 08/08/22 20:00 Neut % (Auto) 78.4 % 08/08/22 20:00 Lymph % (Auto) 8.1 % 08/08/22 20:00 [place] % (Auto) 11.5 % 08/08/22 20:00 Eos % (Auto) 0.1 % 08/08/22 20:00 Baso % (Auto) 0.3 % 08/08/22 20:00 Neut # (Auto) 12.55 10^3/uL (1.8-7.7) H 08/08/22 20:00 Lymph # (Auto) 1.3 10^3/uL (0.8-4.8) 08/08/22 20:00 [place] # (Auto) 1.8 10^3/uL (0.2-0.9) H 08/08/22 20:00 Eos # (Auto) 0.0 10^3/uL (0.0-0.8) 08/08/22 20:00 Baso # (Auto) 0.1 10^3/uL (0.0-0.1) 08/08/22 20:00 Nucleated RBC % (auto) 0 % 08/08/22 20:00 Nucleated RBCs # 0.0 /100WBC 08/08/22 20:00 Sodium 137 mmol/L (136-145) 08/08/22 20:00 Potassium 3.7 mmol/L (3.5-5.1) 08/08/22 20:00 Chloride 100 mmol/L (98-107) 08/08/22 20:00 Carbon Dioxide 23 mmol/L (22-29) 08/08/22 20:00 Anion Gap 17.7 (5-19) 08/08/22 20:00 BUN 9 mg/dL (8-23) 08/08/22 20:00 Creatinine 0.7 mg/dL (0.5-0.9) 08/08/22 20:00 GFR Calculation 85.4 mL/min (90-130) L 08/08/22 20:00 Glucose 338 mg/dL (65-115) H 08/08/22 20:00 Calculated Osmolality 296 mOsm/kg (285-295) H 08/08/22 20:00 Calcium 9.6 mg/dL (8.5-10.5) 08/08/22 20:00 Magnesium 1.7 mg/dL (1.7-2.3) 08/08/22 20:00 Total Bilirubin 0.6 mg/dL (0.15-1.2) 08/08/22 20:00 AST 17 U/L (0-32) 08/08/22 20:00 ALT 13 U/L (0-33) 08/08/22 20:00 Alkaline Phosphatase 152 U/L (35-105) H 08/08/22 20:00 Total Protein 7.7 g/dL (6.6-8.7) 08/08/22 20:00 Albumin 3.7 g/dL (3.5-5.2) 08/08/22 20:00 Globulin 4.0 g/dL (1.3-4.6) 08/08/22 20:00 Lipase 19 U/L (13-60) 08/08/22 20:00 Urine Color Yellow (Yellow) 08/08/22 21:00 Urine Appearance Cloudy (CLEAR) A 08/08/22 21:00 Urine pH 6 (5-7) 08/08/22 21:00 Ur Specific [place] 1.015 (1.005-1.030) 08/08/22 21:00 Urine Protein 3+ (Negative) H 08/08/22 21:00 Urine Glucose (UA) 4+ (Normal) H 08/08/22 21:00 Urine Ketones 2+ (Negative) H 08/08/22 21:00 Urine Blood 3+ (Negative) H 08/08/22 21:00 Urine Nitrate Positive (Negative) H 08/08/22 21:00 Urine Bilirubin Neg (Negative) 08/08/22 21:00 Urine Urobilinogen Norm mg/dL (Negative) 08/08/22 21:00 Ur Leukocyte Esterase 2+ (Negative) H 08/08/22 21:00 Urine RBC 25-40 /hpf (0-2) H 08/08/22 21:00 Urine WBC >100 /hpf (0-5) H 08/08/22 21:00 Ur Squamous Epith Cells 5-10 /hpf (0-5) H 08/08/22 21:00 Amorphous Sediment Not Reportable 08/08/22 21:00 Urine Bacteria 2+ /hpf (NONE) H 08/08/22 21:00 Serum Ketones Negative (Negative) 08/08/22 20:00 Discharge Plan Discharge Patient Disposition: Home Clinical Impression: Urinary tract infection, Hyperglycemia due to diabetes mellitus, Nausea & vomiting Condition: Stable Prescriptions: New Cipro 500 mg tablet 500 mg PO Q12H Qty: 20 0RF No Action prazosin 2 mg capsule 6 mg PO BEDTIME albuterol sulfate [Ventolin HFA] 90 mcg/actuation HFA aerosol inhaler 2 puff inhalation Q6H PRN (Reason: shortness of breath or wheezing) Qty: 8.5 0RF duloxetine [Cymbalta] 60 mg capsule,delayed release(DR/EC) 90 mg PO QAM nitroglycerin 0.4 mg tablet, sublingual 0.4 mg sublingual Q5M PRN (Reason: Chest Pain) Rx Instructions: do not exceed 3 doses per episode metoprolol tartrate 25 mg tablet 12.5 mg PO BID Qty: 60 0RF (DME) Custom Molded Orthotics See Rx Instructions .Route .MEDSUPPLY Qty: 1 0RF Rx Instructions: As directed (DME) Night splint to the right See Rx Instructions .Route .MEDSUPPLY Qty: 1 0RF Rx Instructions: As directed clonidine HCl 0.1 mg tablet 0.05 mg PO BEDTIME omeprazole 40 mg capsule,delayed release(DR/EC) 40 mg PO QAM insulin aspart U-100 [Novolog FlexPen U-100 Insulin] 100 unit/mL (3 mL) insulin pen See Rx Instructions .ROUTE .COMPLEX Qty: 45 3RF Rx Instructions: sliding scale 5 units or less before each meal spironolactone 25 mg tablet 25 mg PO DAILY PRN (Reason: Blood Pressure) (DME) Cam Boot to the Right See Rx Instructions .Route .MEDSUPPLY Qty: 1 0RF Rx Instructions: As directed isosorbide mononitrate 30 mg tablet extended release 24 hr 30 mg PO BID Qty: 60 3RF (DME) Dexcom G6 Wheel Alignment Technician Misc See Rx Instructions .Route Qty: 1 0RF Rx Instructions: Check BS 4 times a day. (DME) FreeStyle Nael 2 Sensor Kit See Rx Instructions .Route Qty: 6 3RF Rx Instructions: As directed (DME) FreeStyle Nael 2 Waves Misc See Rx Instructions .Route Qty: 1 0RF Rx Instructions: As directed (DME) Dexcom G6 Transmitter Device See Rx Instructions .ROUTE .COMPLEX Qty: 1 3RF Dose Instruction: USE 1 TRANSMITTER DIRECTED Rx Instructions: USE 1 TRANSMITTER DIRECTED (DME) Dexcom G6 Sensor Device See Rx Instructions .Route Qty: 9 3RF Rx Instructions: As directed Ozempic 2 mg/dose (8 mg/3 mL) pen injector 2 mg SUBCUT .weekly Qty: 9 3RF Rx Instructions: on sat oxybutynin chloride 15 mg Tablet Extended Release 24hr 30 mg PO QAM amlodipine 5 mg Tablet 5 mg PO QAM Xanax 0.5 mg Tablet 0.25 mg PO DAILY PRN (Reason: Anxiety) cyanocobalamin (vitamin B-12) 1,000 mcg/mL Solution 1,000 mcg IM Q30D Remeron 30 mg Tablet 15 mg PO BEDTIME lisinopril 5 mg Tablet 2.5 mg PO BEDTIME estradiol 0.01 % (0.1 mg/gram) Cream 1 g VAGINAL .TWICE A WEEK Rx Instructions: on mon and buspirone 15 mg Tablet 15 mg PO TID Lexapro 10 mg Tablet 5 mg PO QAM Lyrica 300 mg Capsule 300 mg PO BID Lantus Solostar U-100 Insulin 100 unit/mL (3 mL) Insulin Pen 10 unit SUBCUT QAM Vitamin D3 50 mcg (2,000 unit) Capsule 50 mcg PO QAM naloxone 4 mg/actuation [place],Non-Aerosol 4 mg INTRANASAL Q2M PRN (Reason: overdose) Rx Instructions: spray 1 dose into ONE nostril; alternate nostrils w each dose until help arrives Discharge Orders: Discharge ED (Routine); Ordered 08/08/22 Ordered By: Fidel Barreto Referrals: nAju Taversa FNP [Primary Care Provider] - Patient Instructions: Urinary Tract Infection - Women, Diabetic Hyperglycemia (ED) Coding Level of Care Code ED College Athletic Director for Stefany Morales
--- NOTE | 2022-08-08 21:05 | XRR_ITS ---
PROCEDURE INFORMATION: Exam: XR Abdomen Exam date and time: 08/08/2022 9:21 PM Age: 62 years old Clinical indication: Abdominal pain; Acute; Additional info: Nausea vomiting TECHNIQUE: Imaging protocol: Radiologic exam of the abdomen. Views: Frontal supine view of the abdomen. 1 View. COMPARISON: NM gastric emptying [id number] 09/27/2021 8:00 AM FINDINGS: Gastrointestinal tract: Normal. No bowel dilation. Bones/joints: Unremarkable. XR/XR abdomen 1V* [id number] IMPRESSION: No acute findings.
[2022-08-08] MEDS: metoclopramide 5 mg/mL SDV 2 mL IVP (21:13)
[2022-08-08] MEDS: sodium chloride 0.9% 1,000 ML 999 ML IV (21:13)
[2022-08-08 21:18] LABS: Anion Gap 17.7 (5-19); Aspartate Amino Transferase 17 U/L (0-32); Potassium 3.7 mmol/L (3.5-5.1)
[2022-08-08 21:21] LABS: Ketone (Acetest) Serum Negative (Negative)
[2022-08-08 21:23] LABS: Magnesium 1.7 mg/dL (1.7-2.3)
[2022-08-08 21:36] LABS: Add Urine Microscopic? YES; Bilirubin Urine Neg (Negative); Blood Urine 3+ (Negative); Glucose Urine UA 4+ (Normal); Ketones Urine 2+ (Negative); Leukocyte Esterase Urine 2+ (Negative); Nitrate Urine Positive (Negative); Protein Urine 3+ (Negative); Specific Gravity, Urine 1.015 (1.005-1.030); Urine Appearance Cloudy (CLEAR); Urine Color Yellow (Yellow); Urobilinogen Urine Norm (Negative); pH Urine 6 (5-7)
[2022-08-08 21:37] LABS: Bacteria Urine 2+ /hpf
[2022-08-08 21:38] LABS: RBC Urine 25-40 /hpf (0-2); WBC Urine >100 /hpf (0-5)
[2022-08-08 21:39] LABS: Add Urine Culture? Yes
[2022-08-08 21:59] VITALS: BP 115/93; O2SAT 95
[2022-08-08 22:00] VITALS: BP 115/93; O2SAT 96
[2022-08-08] MEDS: cefTRIAXone 1,000 MG in sodium chloride 0.9% (plus) 50 ML 100 MG IV (22:11)
[2022-08-08 22:43] VITALS: BP 164/91; PULSE 105; RESP 20; O2SAT 95
== END 2022-08-08 22:44 | disposition home or self-care (01) ==
PROVIDERS: Emergency Medicine; Emergency Provider Emergency Medicine; PCP Nurse Practitioner
DX: N39.0 Urinary tract infection, site not specified (principal); E11.65 Type 2 diabetes mellitus with hyperglycemia; R11.2 Nausea with vomiting, unspecified; E11.40 Type 2 diabetes mellitus with diabetic neuropathy, unspecified; I10 Essential (primary) hypertension; E78.5 Hyperlipidemia, unspecified; I25.10 Atherosclerotic heart disease of native coronary artery without angina pectoris; Z79.4 Long term (current) use of insulin; Z87.891 Personal history of nicotine dependence
CPT/HCPCS: 36415; 74018; 80053; 81001; 82009; 83690; 83735; 85025; 87077; 87086; 87186; 96365; 96375; 99284; J0696; J2765; J7030

== ENCOUNTER → 2022-09-15 08:29 | Outpatient (BNVA) | payer OTHER, SELFPAY | PROVIDERS: PCP Nurse Practitioner; Visit Provider Specialist | DX: M17.0 Bilateral primary osteoarthritis of knee (principal) | CPT/HCPCS: 20610; J7326 ==

== ENCOUNTER → 2022-10-05 14:43 | Outpatient (BNVA) | payer OTHER, SELFPAY | PROVIDERS: PCP Nurse Practitioner; Visit Provider Nurse Practitioner Family | DX: I50.9 Heart failure, unspecified (principal); I10 Essential (primary) hypertension | CPT/HCPCS: 80048; 83880; 93005; 99214 ==

== ENCOUNTER → 2022-10-12 12:52 | Outpatient (BNVA) | payer OTHER, SELFPAY | PROVIDERS: PCP Nurse Practitioner; Visit Provider Podiatrist Foot & Ankle Surgery | DX: E11.42 Type 2 diabetes mellitus with diabetic polyneuropathy (principal); M20.41 Other hammer toe(s) (acquired), right foot; M20.42 Other hammer toe(s) (acquired), left foot; M21.41 Flat foot [pes planus] (acquired), right foot; M21.42 Flat foot [pes planus] (acquired), left foot; Z79.4 Long term (current) use of insulin | CPT/HCPCS: 99214 ==

== ENCOUNTER → 2022-12-09 13:56 | Outpatient (BNVA) | payer OTHER, SELFPAY | PROVIDERS: PCP Nurse Practitioner; Visit Provider Podiatrist Foot & Ankle Surgery | DX: E11.42 Type 2 diabetes mellitus with diabetic polyneuropathy (principal); M72.2 Plantar fascial fibromatosis; M20.41 Other hammer toe(s) (acquired), right foot; Z79.4 Long term (current) use of insulin | CPT/HCPCS: 99214 ==

== ENCOUNTER 2022-12-16 07:39 | Day surgery (SDC) | payer OTHER, SELFPAY ==
[2022-12-16 07:52] VITALS: BP 113/74; PULSE 109; RESP 20; TEMP 36.3; O2SAT 95
[2022-12-16 07:58] VITALS: BMI 44.1
[2022-12-16] MEDS: sodium chloride 0.9% 1,000 ML 30 ML IV (08:17)
[2022-12-16] MEDS: scopolamine 1.5 Patch 1 PATCH TRANSDERMA (08:18)
[2022-12-16 08:29] LABS: Basophils % 0.6 %; Eosinophils # 0.3 10^3/uL (0.0-0.8); Eosinophils % 4.3 %; Hematocrit 41.7 % (37.0-47.0); Hemoglobin 13.6 g/dL (11.5-15.3); Lymphocytes # 2.7 10^3/uL (0.8-4.8); Lymphocytes % 41.9 %; Mean Corpuscular HGB Conc 32.6 g/dL (30.0-36.0); Mean Corpuscular Hemoglobin 28.2 pg (28.0-34.0); Mean Corpuscular Volume 86.3 fl (81-99); Mean Platelet Volume 11.9 fL (7.4-10.4); Monocytes # 0.5 10^3/uL (0.2-0.9); Monocytes % 8.4 %; Neutrophils # 2.83 10^3/uL (1.8-7.7); Neutrophils % 43.9 %; Nucleated Red Blood Cells % 0 %; Platelet Count 159 10^3/cmm (130-400); Red Blood Count 4.83 10^6/uL (4.1-5.3); White Blood Count 6.5 10^3/uL (4.0-10.0)
[2022-12-16 08:47] LABS: Anion Gap 18.1 (5-19); Blood Urea Nitrogen 9 mg/dL (8-23); Calcium 8.5 mg/dL (8.5-10.5); Carbon Dioxide 20 mmol/L (22-29); Chloride 104 mmol/L (98-107); Glomerular Filtration Rate 73.2 mL/min (90-130); Glucose 302 mg/dL (65-115); Osmolality Calculated 296 mOsm/kg (285-295); Potassium 4.1 mmol/L (3.5-5.1); Sodium 138 mmol/L (136-145)
--- NOTE | 2022-12-16 09:26 | W.PM.OPSUD ---
Surgery/Procedure H&P Update DATE OF PROCEDURE: December 16, 2022 DATE H&P PERFORMED: 12/09/22 CHANGES TO PREVIOUS DOCUMENTATION: None PREOP DIAGNOSIS: Right fifth hammertoe PLANNED PROCEDURE: Operation Date: 12/16/22 09:20 Proposed Procedures p ?Right fifth toe flexor and extensor tenotomy. Capsulotomy right fifth toe [id number],M20.41(Right) - Saji Jasso DPM s Capsulotomy(Right) - Saji Jasso DPM
--- NOTE | 2022-12-16 09:41 | P.OP_ITS ---
Operative Report Date of procedure: December 16, 2022 Pre-op diagnosis: Preop Diagnosis Right fifth hammertoe Post-op diagnosis: Right fifth hammertoe Procedure done: Flexor and extensor tenotomy right fifth toe. CPT code 37559 Capsulotomy right fifth metatarsal phalangeal joint. CPT code 93591 Implants: 4-0 nylon Surgeon: Saji Jasso D.P.M. Rocket Motor Tester: Belk[employer] Estimated blood loss: Less than 5 13 IV fluids: 0 Urine output: 0 Complications: None Brief History: Patient examined and evaluated, findings and treatment options were discussed with patient at length.? Patient requesting a right fifth hammertoe correction, her goal is to reduce pain from the fifth toe abutting to the fourth toe.? This is affecting her overall quality of life.? She is aware that her A1c is elevated and I advised that she lower her A1c prior to surgery.? Her counter argument is that her fifth toe is going to be a source of wound formation on the fourth toe putting her at increased risk for infection.? She is wishing to proceed with surgical straightening with known increased risk for postoperative infection due to A1c being elevated.? I reviewed at length with the patient, the risks, potential complications, benefits, alternatives, expectations, and typical outcomes associated with the surgery. The risks and potential complications were explained in detail, including but not limited to infection, wound dehiscence or soft tissue complications, bleeding and hematoma, chronic edema, neuritis or nerve damage producing numbness or chronic pain, CRPS, failure to relieve pain or worsening pain, thick / painful / unsightly scar, limited motion / stiffness, malposition, delayed union, malunion, or nonunion, fracture, reaction to implants, anesthetic complications, venous thromboembolism, and deformity recurrence.? I discussed the notion of no regrets with the patient as it pertains to complications and outcomes. The patient seemed to understand the nature of the proposed care and required convalescence. They asked appropriate questions, answered to their satisfaction. They are aware no guarantees can be made as to a satisfactory outcome and they understand there may be other possible unforeseen complications or outcomes not listed here that will be treated accordingly if they arise. There were no written or implied guarantees given to the patient. They gave informed consent to proceed. Procedure: Under mild sedation the patient was brought to the operating room and remained on the gurney in supine position. A timeout was performed. Anesthesia was then administered by the anesthesia service. Local anesthesia was injected by myself consisting of one-to-one mixture 1% lidocaine and 0.5% Marcaine plain in a reverse Mayes block fashion to the right foot, total of 20 cc utilized. Well- padded pneumatic tourniquet was applied to the right ankle. The right lower extremity was then scrubbed, prepped and draped utilizing normal aseptic technique. Right foot was exanguinated with an Esmarch bandage and tourniquet inflated to 250 mmHg. Attention was directed to the right fifth toe, a hammertoe deformity that was fully reducible was appreciated. The deformity had a sagittal and transverse plane component. Extensor tendons and flexor tendons both appeared taut and the extensor tendons tenting the skin dorsally at the fifth ray. Transverse plane deformity was deviating medially and abutting the fifth toe aggressively against the fourth toe. No wounds were appreciated at this time within the fourth webspace of the right foot. Just proximal to the fifth metatarsal phalangeal joint a stab incision was performed directly over the extensor tendons which were incised and released sharply followed by irrigation of the stab incision and closure of the skin with 4-0 nylon. The right fifth toe after having released the extensor tendons continue to flex in the sagittal plane. Within the sulcus of the right fifth toe a tenotomy was performed sharply percutaneously of the flexor tendons with a visible and audible release. Resting position of the right fifth toe was then neutral within the sagittal plane. The plantar incision was irrigated and closed with 4-0 nylon. A transverse plane deformity at the right fifth metatarsal phalangeal joint was persistent after having performed the above procedure. Capsule balancing at the metatarsophalangeal joint was then performed sharply. An incision at the medial aspect of the right fifth metatarsal phalangeal joint was performed and the medial capsule was incised effectively releasing the medial portion and the right fifth toe was held in a more rectus position within the transverse plane. This was then temporally fixated utilizing a 045 K wire which was then bent at 90 degrees at the distal end and covered with a Luis ball. The right fifth toe was nicely held within a rectus position in regards to the sagittal and transverse planes after the above procedure. the incision was irrigated with copious amounts of sterile skin solution and closed with 4-0 nylon. Incisions were dressed with Adaptic, sterile 4 x 4's, Kerlix and James wrap cam boot was applied to the right lower extremity. Tourniquet was then deflated and a prompt hyperemic response was noted to all distal digits of the right foot. Patient tolerated the procedure well and was transferred to the PACU with vital signs stable and vascular status intact. Following a period of postoperative monitoring she will be discharged home. She is to minimize her activity, she may heel touch for transfers with a cam boot. She is advised to elevate her right foot while resting. Was provided pain medication to be taken judiciously as needed for pain. Was given at home care instructions and follow-up.
[2022-12-16] MEDS: ceFAZolin 3,000 MG in sodium chloride 0.9% (100 ml) 100 ML 200 MG IV (09:45)
[2022-12-16] MEDS: lidocaine 2% INJ 20 mL 10 ML INJECTION (09:53)
--- NOTE | 2022-12-16 09:54 | ANES.PREANE2 ---
Pre-Anesthetic Assessment Height/Weight: Height 1.7 m Weight 127.913 kg Temp Pulse Resp BP Pulse Ox O2 Del Method 97.3 F L 109 H 20 H 113/74 95 Room Air 12/16/22 07:52 12/16/22 07:52 12/16/22 07:52 12/16/22 07:52 12/16/22 07:52 12/16/22 08:06 Preop Diagnosis: Right fifth hammertoe Operation Date: 12/16/22 09:20 Proposed Procedures p ?Right fifth toe flexor and extensor tenotomy. Capsulotomy right fifth toe [id number],M20.41(Right) - Sjai Jasso DPM s Capsulotomy(Right) - Saji Jasso DPM Familial anesthetic complications: none Was Beta Abiel taken within 24 hours: Yes Was Clonidine taken within 24 hours: N/A Last intake: Intake Last Liquid Date 12/15/22 Last Liquid Time 23:00 Last Solid Date 12/15/22 Last Solid Time 20:00 Social Tobacco and No alcohol Exam alert, oriented x 3 and regular rate & rhythm Airway Submandibular: within normal limits Cervical ROM: within normal limits Mallampati: Class II Dentition: false Pulmonary Chronic Obstructive Pulmonary Disease CV/HEM Coronary Artery Disease, Hypertension and Myocardial Infarction GI Gastroesophageal Reflux Disease Metabolic Diabetes Mellitus and Hyperlipidemia Musc/el Lower Back Pain and Osteoarthritis/DJD Neuropsych Anxiety, Depression and Neuropathy Anesthetic Plan ASA status: 3 Anesthesia: MAC Medications/Allergies Home Medications Medication Instructions Recorded Confirmed Last Taken Type albuterol sulfate 90 mcg/actuation 2 puff inhalation Q6H PRN 04/18/21 12/16/22 08/31/21 Rx aerosol inhaler (Ventolin HFA) shortness of breath or wheezing #8.5 grams blood-glucose meter,continuous #1 ea 05/17/21 12/16/22 08/31/21 Rx (Dexcom G6 Damage Cutter) duloxetine 60 mg capsule,delayed 60 mg PO BID 06/07/21 12/16/22 12/14/22 History release (Cymbalta) metoprolol tartrate 25 mg tablet 12.5 mg PO BID #60 tabs 07/14/21 12/16/22 12/16/22 06:30 Rx nitroglycerin 0.4 mg sublingual 0.4 mg sublingual Q5M PRN Chest 07/19/21 12/16/22 08/31/21 History tablet Pain insulin aspart U-100 100 unit/mL See Rx Instructions .Route 10/18/21 12/16/22 12/15/22 Rx (3 mL) subcutaneous pen (Novolog .COMPLEX #45 mL FlexPen U-100 Insulin aspart) omeprazole 40 mg capsule,delayed 40 mg PO QAM 10/18/21 12/16/22 12/14/22 History release prazosin 2 mg capsule 3 mg PO BEDTIME 10/18/21 12/16/22 12/14/22 History spironolactone 25 mg tablet 25 mg PO DAILY PRN Blood Pressure 03/25/22 12/16/22 12/08/22 History blood-glucose transmitter (Dexcom #1 ea 04/19/22 12/16/22 Unknown Rx G6 Transmitter device) flash glucose sensor (FreeStyle #6 ea 04/19/22 12/16/22 Unknown Rx Nael 2 Sensor kit) alprazolam 0.5 mg tablet (Xanax) 0.25 mg PO DAILY PRN Anxiety 06/17/22 12/16/22 12/16/22 06:30 History 0.25 amlodipine 5 mg tablet 5 mg PO QAM 06/17/22 12/16/22 12/16/22 06:30 History buspirone 15 mg tablet 15 mg PO BID 06/17/22 12/16/22 12/15/22 History cholecalciferol (vitamin D3) 50 50 mcg PO QAM 06/17/22 12/16/22 12/14/22 History mcg (2,000 unit) capsule (Vitamin D3) cyanocobalamin (vitamin B-12) 1,000 mcg IM Q30D 06/17/22 12/16/22 11/19/22 History 1,000 mcg/mL injection solution escitalopram oxalate 10 mg tablet 5 mg PO QAM 06/17/22 12/16/22 12/14/22 History (Lexapro) lisinopril 5 mg tablet 2.5 mg PO BEDTIME 06/17/22 12/16/22 12/14/22 History naloxone 4 mg/actuation nasal spray 4 mg intranasal Q2M PRN overdose 06/17/22 12/16/22 Unknown History oxybutynin chloride 15 mg 30 mg PO QAM 0112/16/22 12/14/22 History tablet,extended release 24 hr pregabalin 300 mg capsule (Lyrica) 300 mg PO BID 06/17/22 12/16/22 12/16/22 06:30 History blood-glucose sensor (Dexcom G6 #9 ea 06/20/22 12/16/22 Unknown Rx Sensor device) insulin glargine 100 unit/mL (3 15 unit SUBCUT QAM 10/05/22 12/16/22 12/16/22 06:30 History mL) subcutaneous pen (Lantus 10 Solostar U-100 Insulin) isosorbide mononitrate 30 mg See Rx Instructions PO BID #240 11/04/22 12/16/22 12/14/22 Rx tablet,extended release 24 hr tabs semaglutide 2 mg/dose (8 mg/3 mL) See Rx Instructions .Route 11/21/22 12/16/22 12/11/22 Rx subcutaneous pen injector (Ozempic) .COMPLEX #3 mL aspirin 81 mg tablet,delayed 81 mg PO DAILY 12/15/22 12/16/22 12/09/22 History release hydrocodone 7.5 mg-acetaminophen 1 tab PO Q6H PRN pain 7 days #28 12/16/22 Unknown Rx 325 mg tablet tabs Allergies Allergy/AdvReac Type Severity Reaction Status Date / Time ondansetron [From Zofran] Allergy Severe Dystonia Verified 10/26/22 07:33 bee venom protein (honey bee) Allergy anaphylaxis Verified 10/26/22 07:33 Influenza Virus Vaccines Allergy anaphylacti Verified 10/26/22 07:33 c mushroom Allergy anaphylaxis Verified 10/26/22 07:33 tetracycline Allergy Rash, Verified 10/26/22 07:33 shortness of breath trazodone Allergy Rash, Verified 10/26/22 07:33 trouble breathing Current Medications Generic Name Dose Route Start Last Admin Trade Name Freq PRN Reason Stop Dose Admin Sodium Chloride 1,000 mls @ 30 mls/hr 12/16/22 07:45 12/16/22 08:17 Sodium Chloride 0.9% IV 12/17/22 07:44 30 mls/hr .Q24H MAI Administration PFSH Anesthesia Medical History Anxiety and depression Diagnosed in the and controlled well on medication at this time managed by primary care provider nurse practitioner Nitin. Chronic back pain Associated with neuropathy. Takes Lyrica for the neuropathy. Does take hydrocodone as needed for pain. Coronary artery disease due to type 2 diabetes mellitus Diabetic neuropathy Gastroparesis GERD (gastroesophageal reflux disease) Controlled on medication Hyperlipidemia Hypertension Diagnosed in 2018 managed by primary care provider nurse practitioner Nitin Metatarsalgia of both feet No pertinent past medical history NegHx: thyroid, dvt/pe PCP: Tania Post traumatic stress disorder (PTSD) Prinzmetal angina Uncontrolled type 2 diabetes mellitus Surgical History H/O esophagogastroduodenoscopy (09/01/21) History of back surgery Pain pump insertion, removed in 2014 History of coronary angiogram 06/2021 and 05/2022 History of surgery neck lipoma removal- Hx of breast surgery ductectomy from the left breast done in her late 30s Hx of oophorectomy 1980---right lower quadrant incision-right ovary and appendix were removed when she presented with pain to the emergency room S/P appendectomy 1980-right lower quadrant incision, right ovary and appendix were removed. S/P cholecystectomy Laparoscopic procedure performed in 1992 S/P hysterectomy 1985--vaginal hysterectomy with left oophorectomy performed for a uterine mass she was told that there was no cancer but there were some abnormal cells and it was recommended that she have chemotherapy for 6 weeks however she did only 2 weeks and then did not finish the rest of treatment. S/P left knee arthroscopy S/P tonsillectomy and adenoidectomy As a child S/P tubal ligation 1982-immediately . Family History Mother Heart disease Hypertension Ovarian cancer Diagnosed at age 34 Suicide Thyroid condition Uterine cancer Diagnosed at age 34, unsure of origin Father Heart disease Thyroid condition Sister Thyroid condition Family/Other Thyroid condition [place], granddaughter Other Diabetes Social History Quit status (tobacco): has quit using tobacco Second hand smoke exposure: No Smoking risk assessment/counseling performed?: Yes Alcohol intake: former Desire information about alcohol rehabilitation?: No Counseling given: No Substance/Drug Use: never Desire information about substance/drug rehabilitation?: No Counseling given: No Adopted: No Caregiver/support person: No Lives independently: Yes Housing: House Marital status: Number of children: 2 Highest education level completed: Associate Degree: Occupational, Technical, Vocational Program service: Yes Pets and animals: Yes Sexually active: Yes Do you think of yourself as: Straight/Heterosexual Gricel/Anglican: Anabaptist Special gricel needs: No Agree to transfusion: No Data Anesthesia 12/16/22 08:16 12/16/22 08:16 Short CBC 12/16/22 Range/Units 08:16 WBC 6.5 (4.0-10.0) 10^3/uL Hgb 13.6 (11.5-15.3) g/dL Hct 41.7 (37.0-47.0) % MCV 86.3 (81-99) fl Plt Count 159 (130-400) 10^3/cmm Neut % (Auto) 43.9 % Neut # (Auto) 2.83 (1.8-7.7) 10^3/uL BMP 12/16/22 08:16 Sodium 138 Potassium 4.1 Chloride 104 Carbon Dioxide 20 L BUN 9 Creatinine 0.8 Glucose 302 H Calcium 8.5 Cardiac Studies: Echocardiogram 06/16/22 Sestamibi Stress Test (Cardiology) 06/16/22 Cardiac Event Monitor 04/01/22
[2022-12-16] MEDS: triamcinolone 40 mg/mL SDV INJECTION (10:14)
[2022-12-16] MEDS: dexamethasone 4 mg/mL INJ INJECTION (10:14)
[2022-12-16 10:24] VITALS: BP 149/92; PULSE 94; RESP 15; TEMP 36.1; O2SAT 94
[2022-12-16 10:30] VITALS: BP 98/70; PULSE 90; RESP 15; O2SAT 94
[2022-12-16 10:36] VITALS: BP 112/78; PULSE 81; RESP 18; TEMP 36.1; O2SAT 91
[2022-12-16 10:50] VITALS: BP 98/76; PULSE 81; RESP 18; O2SAT 91
[2022-12-16 11:01] VITALS: BP 112/74; PULSE 76; RESP 18; O2SAT 93
--- NOTE | 2022-12-16 17:25 | ANE.PACU2 ---
Inpatient post-anesthesia follow up: Airway intact: Yes Vital signs: Temperature 97.0 F Pulse Rate 76 Respiratory Rate 18 Blood Pressure 112/74 Pulse Oximetry 93 Oxygen Delivery Me thod Room Air Oxygen Flow Rate 6 Fraction of Inspir ed Oxygen Hydration adequate: Yes Nausea and vomiting: No Pain level: 2 Mental status: Baseline
== END 2022-12-16 11:15 | disposition home or self-care (01) ==
PROVIDERS: Anesthesiology; PCP Nurse Practitioner; Visit Provider Podiatrist Foot & Ankle Surgery
PROC: (CPT 28011; principal; 2022-12-16 09:10)
PROC: (CPT 28011; 2022-12-16 09:10)
DX: M20.41 Other hammer toe(s) (acquired), right foot (principal); E11.42 Type 2 diabetes mellitus with diabetic polyneuropathy; K21.9 Gastro-esophageal reflux disease without esophagitis; E78.5 Hyperlipidemia, unspecified; I25.10 Atherosclerotic heart disease of native coronary artery without angina pectoris; I10 Essential (primary) hypertension; Z79.4 Long term (current) use of insulin; F41.9 Anxiety disorder, unspecified; F32.A Depression, unspecified; Z79.82 Long term (current) use of aspirin; Z79.891 Long term (current) use of opiate analgesic; Z87.891 Personal history of nicotine dependence
CPT/HCPCS: 28011; 28270; 36415; 80048; 85025; C1713; J0690; J1100; J2704; J3010; J3301; J3490; J7030

== ENCOUNTER → 2022-12-22 13:29 | Outpatient (BNVA) | payer OTHER, SELFPAY | PROVIDERS: PCP Nurse Practitioner; Visit Provider Specialist | DX: M17.0 Bilateral primary osteoarthritis of knee | CPT/HCPCS: 20610; J1100; J2795; J3301 ==

== ENCOUNTER → 2022-12-27 08:44 | Outpatient (BNVA) | payer OTHER, SELFPAY | PROVIDERS: PCP Nurse Practitioner; Visit Provider Podiatrist Foot & Ankle Surgery | DX: Z98.890 Other specified postprocedural states (principal) | CPT/HCPCS: 20670; 73630; 99024 ==

== ENCOUNTER → 2023-01-04 13:57 | Outpatient (BNVA) | payer OTHER, SELFPAY | PROVIDERS: PCP Nurse Practitioner; Visit Provider Internal Medicine | DX: I49.9 Cardiac arrhythmia, unspecified (principal); E11.42 Type 2 diabetes mellitus with diabetic polyneuropathy; M20.41 Other hammer toe(s) (acquired), right foot; M20.42 Other hammer toe(s) (acquired), left foot; M21.41 Flat foot [pes planus] (acquired), right foot; M21.42 Flat foot [pes planus] (acquired), left foot | CPT/HCPCS: 36415; 80053; 80061; 82044; 83036; 99204 ==

== ENCOUNTER → 2023-01-12 13:45 | Outpatient (BNVA) | payer OTHER, SELFPAY | PROVIDERS: PCP Nurse Practitioner; Visit Provider Podiatrist Foot & Ankle Surgery | DX: Z98.890 Other specified postprocedural states (principal) | CPT/HCPCS: 99024 ==

== ENCOUNTER → 2023-01-25 10:28 | Outpatient (BNVA) | payer OTHER, SELFPAY | PROVIDERS: PCP Nurse Practitioner; Visit Provider Podiatrist Foot & Ankle Surgery | DX: Z98.890 Other specified postprocedural states (principal) | CPT/HCPCS: 99024 ==

== ENCOUNTER 2023-02-01 20:28 | Emergency (ER) | payer OTHER, SELFPAY ==
--- NOTE | 2023-02-01 20:33 | XRR_ITS ---
PROCEDURE INFORMATION: Exam: XR Right Foot Exam date and time: 02/01/2023 8:55 PM Age: 62 years old Clinical indication: Pain; Foot; Right; Additional info: Injury TECHNIQUE: Imaging protocol: Radiologic exam of the right foot. Views: 3 or more views. COMPARISON: CR XR foot RT min 3V* [id number] 06/27/2022 11:31 AM FINDINGS: Bones/joints: Chronic internally fixed osteotomies of the 1st metatarsal and 1st proximal phalanx. Chronic healed fractures of the 2nd, 3rd and 4th metatarsals. Focal degenerative disc disease in the 4th proximal interphalangeal joint. Osteophytes arise from the mid tarsal bones as well as the base of the heel. Soft tissues: Normal. Other findings: No acute findings. XR/XR foot RT min 3V* [id number] IMPRESSION: 1. No acute findings. 2. Healed fractures and osteotomies. 3. Scattered degenerative changes as described
[2023-02-01 20:44] VITALS: BP 138/81; PULSE 77; RESP 16; TEMP 36.8; O2SAT 93; BMI 42.5
[2023-02-01] MEDS: clindamycin 150 mg Capsule 300 MG PO (22:09)
--- NOTE | 2023-02-01 22:32 | W.ED.EXTPRO ---
HPI - Extremity Problem General: Chief complaint: Extremity Injury, Lower Stated complaint: right toe swollen Time Seen by Provider: 02/01/23 21:03 Source: patient Mode of arrival: ambulatory Limitations: no limitations History of Present Illness: Patient presents to the emergency department today brought by family for evaluation treatment of right third toe wound, redness, and swelling. Patient's daughter was helping trim her toenails back and accidentally clipped too far. Patient noticed a couple of days ago the wound and developing redness. Patient is a diabetic with severe neuropathy. [facility] and she has an appointment in the morning but, when she was talking to the nurse on-call they recommended she seek evaluation tonight to begin antibiotics. Review of Systems General: Reports: 10 or more systems reviewed and unremarkable except in HPI and below PFSH ED PFSH: Medical History Anxiety and depression Diagnosed in the and controlled well on medication at this time managed by primary care provider nurse practitioner Nitin. Chronic back pain Associated with neuropathy. Takes Lyrica for the neuropathy. Does take hydrocodone as needed for pain. Coronary artery disease due to type 2 diabetes mellitus Diabetic neuropathy Gastroparesis GERD (gastroesophageal reflux disease) Controlled on medication Hyperlipidemia Hypertension Diagnosed in 2018 managed by primary care provider nurse jami Taveras Metatarsalgia of both feet No pertinent past medical history NegHx: thyroid, dvt/pe PCP: Tania Post traumatic stress disorder (PTSD) Prinzmetal angina Uncontrolled type 2 diabetes mellitus Surgical History H/O esophagogastroduodenoscopy (09/01/21) History of back surgery Pain pump insertion, removed in 2014 History of coronary angiogram 06/2021 and 05/2022 History of surgery neck lipoma removal- Hx of breast surgery ductectomy from the left breast done in her late 30s Hx of oophorectomy 1980---right lower quadrant incision-right ovary and appendix were removed when she presented with pain to the emergency room S/P appendectomy 1980-right lower quadrant incision, right ovary and appendix were removed. S/P cholecystectomy Laparoscopic procedure performed in 1992 S/P hysterectomy 1985--vaginal hysterectomy with left oophorectomy performed for a uterine mass she was told that there was no cancer but there were some abnormal cells and it was recommended that she have chemotherapy for 6 weeks however she did only 2 weeks and then did not finish the rest of treatment. S/P left knee arthroscopy S/P tonsillectomy and adenoidectomy As a child S/P tubal ligation 1982-immediately . Family History Mother Heart disease Hypertension Ovarian cancer Diagnosed at age 34 Suicide Thyroid condition Uterine cancer Diagnosed at age 34, unsure of origin Father Heart disease Thyroid condition Sister Thyroid condition Family/Other Thyroid condition [place], granddaughter Other Diabetes Social History Quit status (tobacco): has quit using tobacco Second hand smoke exposure: No Smoking risk assessment/counseling performed?: Yes Alcohol intake: former Desire information about alcohol rehabilitation?: No Counseling given: No Substance/Drug Use: never Desire information about substance/drug rehabilitation?: No Counseling given: No Adopted: No Caregiver/support person: No Lives independently: Yes Housing: House Marital status: Number of children: 2 Highest education level completed: Associate Degree: Occupational, Technical, Vocational Program service: Yes Pets and animals: Yes Sexually active: Yes Do you think of yourself as: Straight/Heterosexual Gricel/Zoroastrian: Evangelical Special gricel needs: No Agree to transfusion: No Physical Exam Const: COMMON NORMALS: no acute distress, patient oriented x3 and alert HENMT: COMMON NORMALS: normocephalic, atraumatic and hearing grossly normal bilaterally HEAD & SCALP: normocephalic and atraumatic Eye: COMMON NORMALS: Equal, round and reactive pupils present, EOMs intact bilaterally and conjunctivae normal CONJUNCTIVA: Yes conjunctivae normal PUPIL: Yes Equal, round and reactive pupils present Neck/C-Spine: COMMON NORMALS: full ROM and no JVD Lymph: LYMPHATIC: no lymphadenopathy noted Resp: COMMON NORMALS: normal respiratory effort, No retractions and No use of accessory muscles Cardio: COMMON NORMALS: no JVD and regular rate RATE: regular rate Extremity: NARRATIVE EXTREMITY EXAM: Patient is ambulatory and weightbearing on the right lower extremity. Neuro: COMMON NORMALS: patient oriented x3 SENSORIUM/ORIENTATION: Yes alert OTHER: Significant distal foot and toe neuropathy. Psych: COMMON NORMALS: mental status grossly normal, Normal thought process present, cooperative and normal affect THOUGHT PROCESS: Normal thought process present Skin: NARRATIVE SKIN EXAM: Patient has obvious wound to the distal end of the right third toe without active draining. No black eschar formation at this time. Erythema extending up to the webspace and just proximal to the MTP joint. Course Vital Signs: Vital signs: Vital Signs Temperature 98.2 F 02/01/23 20:44 Pulse Rate 77 02/01/23 20:44 Respiratory Rate 16 02/01/23 20:44 Blood Pressure 138/81 02/01/23 20:44 Pulse Oximetry 93 02/01/23 20:44 MDM - Extremity (Nontraumatic) Medical Decision Making Patient has wound to the distal tip of toe with associated cellulitis. X-rays negative for concerns of developing osteomyelitis at this time. Patient was given a first dose of clindamycin here in the emergency department with the rest of her prescription provided to be picked up and continued in the morning. It was recommended she get an [id number] probiotic as well. Warned her of onset of diarrhea for which she needs to be seen and evaluated. She does have an appointment scheduled with her primary care doctor and encouraged her to keep this appointment for a wound check. Continue to monitor the wound for any spreading redness, dusky or black discoloration of the wound. Patient's wound was cleaned and bandaged here in the emergency department and encouraged continued wound care at home. Patient verbalized understanding and agreement to treatment plan. Differential Diagnosis Likely cellulitis (Diabetic wound, osteomyelitis, diabetic neuropathy); Unlikely gout Lab Data Radiology Impressions Foot X-Ray 02/01/23 20:33 IMPRESSION: 1. No acute findings. 2. Healed fractures and osteotomies. 3. Scattered degenerative changes as described Discharge Plan Discharge Patient Disposition: Home Clinical Impression: Cellulitis of toe of right foot, Diabetic neuropathy Condition: Stable Prescriptions: New clindamycin HCl 300 mg capsule 300 mg PO Q6H 10 Days Qty: 40 0RF No Action prazosin 2 mg capsule 3 mg PO BEDTIME duloxetine [Cymbalta] 60 mg capsule,delayed release(DR/EC) 60 mg PO BID nitroglycerin 0.4 mg tablet, sublingual 0.4 mg sublingual Q5M PRN (Reason: Chest Pain) Rx Instructions: do not exceed 3 doses per episode metoprolol tartrate 25 mg tablet 12.5 mg PO BID Qty: 60 0RF omeprazole 40 mg capsule,delayed release(DR/EC) 40 mg PO QAM insulin aspart U-100 [Novolog FlexPen U-100 Insulin] 100 unit/mL (3 mL) insulin pen See Rx Instructions .ROUTE .COMPLEX Qty: 45 3RF Rx Instructions: sliding scale 5 units or less before each meal spironolactone 25 mg tablet 25 mg PO DAILY PRN (Reason: Blood Pressure) albuterol sulfate [Ventolin HFA] 90 mcg/actuation HFA aerosol inhaler 2 puff inhalation Q6H PRN (Reason: shortness of breath or wheezing) Qty: 8.5 0RF (DME) Dexcom G6 [place] Misc See Rx Instructions .Route Qty: 1 0RF Rx Instructions: Check BS 4 times a day. (DME) FreeStyle Nael 2 Sensor Kit See Rx Instructions .Route Qty: 6 3RF Rx Instructions: As directed isosorbide mononitrate 30 mg tablet extended release 24 hr See Rx Instructions PO BID Qty: 240 3RF Rx Instructions: 60mg in AM, 30 mg in PM orally twice a day; Ozempic 2 mg/dose (8 mg/3 mL) pen injector See Rx Instructions .ROUTE .COMPLEX Qty: 3 1RF Dose Instruction: INJECT 2MG (0.75ML) UNDER THE SKIN EVERY WEEK ON SATURDAYS Rx Instructions: INJECT 2MG (0.75ML) UNDER THE SKIN EVERY WEEK ON SATURDAYS aspirin 81 mg Tablet,Delayed Release (Dr/Ec) 81 mg PO DAILY oxybutynin chloride 15 mg Tablet Extended Release 24hr 30 mg PO QAM amlodipine 5 mg Tablet 5 mg PO QAM alprazolam [Xanax] 0.5 mg Tablet 0.25 mg PO DAILY PRN (Reason: Anxiety) cyanocobalamin (vitamin B-12) 1,000 mcg/mL Solution 1,000 mcg IM Q30D lisinopril 5 mg Tablet 2.5 mg PO BEDTIME buspirone 15 mg Tablet 15 mg PO BID escitalopram oxalate [Lexapro] 10 mg Tablet 5 mg PO QAM pregabalin [Lyrica] 300 mg Capsule 300 mg PO BID cholecalciferol (vitamin D3) [Vitamin D3] 50 mcg (2,000 unit) Capsule 50 mcg PO QAM naloxone 4 mg/actuation [place],Non-Aerosol 4 mg INTRANASAL Q2M PRN (Reason: overdose) Rx Instructions: spray 1 dose into ONE nostril; alternate nostrils w each dose until help arrives Lantus Solostar U-100 Insulin 100 unit/mL (3 mL) insulin pen 15 unit SUBCUT QAM Discharge Orders: Discharge ED (Routine); Ordered 02/01/23 Ordered By: Giovana Minaya Referrals: Anju Taveras FNP [Primary Care Provider] - Discharge Diet: Usual diet Discharge Activity: Increase activity as tolerated Patient Instructions: Cellulitis (ED) Activity Restrictions/Additional Instructions: X-rays negative for concerns of underlying bony infection. We are starting you on antibiotics to treat the cellulitis and wound but, do encourage you to continue with your primary care follow-up as you may require further wound care to fully heal. The medication you are receiving requires close monitoring for any GI upset and development of diarrhea. You may wish to take an [id number] probiotic. If you do develop multiple episodes of daily diarrhea we recommend you be seen by primary care or back here through the emergency department for further evaluation. If you continue to have spreading redness, discoloration of the toe, or streaking redness up the foot we also recommend being seen and reevaluated to soon as possible. Stand Alone Forms: Work/School Release Coding Level of Care Code ED Print Project Manager for Stefany Morales
--- NOTE | 2023-02-01 22:35 | PC.NURSE ---
PT ARRIVED TO ED WITH TWO FLIP FLOPS, AFTER XRAY PT STATES ONE FELL ON FLOOR UNDER BED AND ASKED IF I WOULD RETREIVE IT. UPON MOVING BED TO GET FLIP FLOP OIT WAS NOT ON FLOOR OR UNDER BED ON FRRAM. I EVEN LOOKED UNDER BLANKET AND MATRESS ANDTRASHCANS. I EVEN LOOKED UNDER XRAY MACHINE AND SHOE WAS NO WHERE TO BE FOUND. PT WAS INSTRUCTED TO CALL BACK THE NEXT COUPLE DAYS AND SEE IF SHOE HAD BEEN FOUND.
== END 2023-02-01 22:38 | disposition home or self-care (01) ==
PROVIDERS: Emergency Provider Physician Assistant; PCP Nurse Practitioner
DX: L03.031 Cellulitis of right toe (principal); E11.40 Type 2 diabetes mellitus with diabetic neuropathy, unspecified; Z79.4 Long term (current) use of insulin; Z79.82 Long term (current) use of aspirin; Z87.891 Personal history of nicotine dependence; I25.10 Atherosclerotic heart disease of native coronary artery without angina pectoris; E78.5 Hyperlipidemia, unspecified; I10 Essential (primary) hypertension
CPT/HCPCS: 73630; 99283

== ENCOUNTER → 2023-02-09 08:16 | Outpatient (BNVA) | payer OTHER, SELFPAY | PROVIDERS: PCP Nurse Practitioner; Visit Provider Nurse Practitioner Family | DX: E11.52 Type 2 diabetes mellitus with diabetic peripheral angiopathy with gangrene (principal); L97.511 Non-pressure chronic ulcer of other part of right foot limited to breakdown of skin | CPT/HCPCS: 97597; 99203; A6219 ==

== ENCOUNTER → 2023-02-15 08:24 | Outpatient (BNVA) | payer OTHER, SELFPAY | PROVIDERS: PCP Nurse Practitioner; Visit Provider Nurse Practitioner Family | DX: I96 Gangrene, not elsewhere classified (principal); L97.511 Non-pressure chronic ulcer of other part of right foot limited to breakdown of skin | CPT/HCPCS: 97597; A6219 ==

== ENCOUNTER → 2023-02-22 09:49 | Outpatient (BNVA) | payer OTHER, SELFPAY | PROVIDERS: PCP Nurse Practitioner; Visit Provider Thoracic Surgery (Cardiothoracic Vascular Surgery) | DX: E11.52 Type 2 diabetes mellitus with diabetic peripheral angiopathy with gangrene (principal); L97.511 Non-pressure chronic ulcer of other part of right foot limited to breakdown of skin | CPT/HCPCS: 97597 ==

== ENCOUNTER → 2023-03-01 10:01 | Outpatient (BNVA) | payer OTHER, SELFPAY | PROVIDERS: PCP Nurse Practitioner; Visit Provider Thoracic Surgery (Cardiothoracic Vascular Surgery) | DX: I96 Gangrene, not elsewhere classified (principal); E11.621 Type 2 diabetes mellitus with foot ulcer; L97.511 Non-pressure chronic ulcer of other part of right foot limited to breakdown of skin | CPT/HCPCS: 97597 ==

== ENCOUNTER → 2023-03-08 10:08 | Outpatient (BNVA) | payer OTHER, SELFPAY | PROVIDERS: PCP Nurse Practitioner; Visit Provider Thoracic Surgery (Cardiothoracic Vascular Surgery) | DX: E11.52 Type 2 diabetes mellitus with diabetic peripheral angiopathy with gangrene (principal); L97.511 Non-pressure chronic ulcer of other part of right foot limited to breakdown of skin | CPT/HCPCS: 97597 ==

== ENCOUNTER → 2023-03-15 09:21 | Outpatient (BNVA) | payer OTHER, SELFPAY | PROVIDERS: PCP Nurse Practitioner; Visit Provider Thoracic Surgery (Cardiothoracic Vascular Surgery) | DX: E11.52 Type 2 diabetes mellitus with diabetic peripheral angiopathy with gangrene (principal); E11.621 Type 2 diabetes mellitus with foot ulcer; L97.511 Non-pressure chronic ulcer of other part of right foot limited to breakdown of skin | CPT/HCPCS: 97597 ==

== ENCOUNTER → 2023-03-22 08:53 | Outpatient (BNVA) | payer OTHER, SELFPAY | PROVIDERS: PCP Nurse Practitioner; Visit Provider Nurse Practitioner Family | DX: E11.52 Type 2 diabetes mellitus with diabetic peripheral angiopathy with gangrene (principal); E11.621 Type 2 diabetes mellitus with foot ulcer; L97.511 Non-pressure chronic ulcer of other part of right foot limited to breakdown of skin | CPT/HCPCS: 97597 ==

== ENCOUNTER → 2023-03-23 09:29 | Outpatient (BNVA) | payer OTHER, SELFPAY | PROVIDERS: PCP Nurse Practitioner; Visit Provider Specialist | DX: M17.0 Bilateral primary osteoarthritis of knee (principal) | CPT/HCPCS: 20610; J7326 ==

== ENCOUNTER → 2023-03-29 08:58 | Outpatient (BNVA) | payer OTHER, SELFPAY | PROVIDERS: PCP Nurse Practitioner; Visit Provider Thoracic Surgery (Cardiothoracic Vascular Surgery) | DX: E11.52 Type 2 diabetes mellitus with diabetic peripheral angiopathy with gangrene (principal); E11.621 Type 2 diabetes mellitus with foot ulcer; L97.511 Non-pressure chronic ulcer of other part of right foot limited to breakdown of skin | CPT/HCPCS: 97597 ==

== ENCOUNTER → 2023-04-05 10:04 | Outpatient (BNVA) | payer OTHER, SELFPAY | PROVIDERS: PCP Nurse Practitioner; Visit Provider Thoracic Surgery (Cardiothoracic Vascular Surgery) | DX: E11.52 Type 2 diabetes mellitus with diabetic peripheral angiopathy with gangrene (principal); E11.621 Type 2 diabetes mellitus with foot ulcer; L97.511 Non-pressure chronic ulcer of other part of right foot limited to breakdown of skin | CPT/HCPCS: 97597 ==

== ENCOUNTER → 2023-04-12 10:19 | Outpatient (BNVA) | payer OTHER, SELFPAY | PROVIDERS: PCP Nurse Practitioner; Visit Provider Thoracic Surgery (Cardiothoracic Vascular Surgery) | DX: E11.52 Type 2 diabetes mellitus with diabetic peripheral angiopathy with gangrene (principal); E11.621 Type 2 diabetes mellitus with foot ulcer; L97.511 Non-pressure chronic ulcer of other part of right foot limited to breakdown of skin | CPT/HCPCS: 97597 ==

== ENCOUNTER → 2023-04-25 14:57 | Outpatient (BNVA) | payer OTHER, SELFPAY | PROVIDERS: PCP Nurse Practitioner; Visit Provider Registered Nurse Neonatal Intensive Care | DX: Z01.89 Encounter for other specified special examinations (principal) | CPT/HCPCS: 86803; 87340; 87806 ==

== ENCOUNTER 2023-05-23 13:58 | Emergency (ER) | payer OTHER, SELFPAY ==
[2023-05-23 14:02] VITALS: BP 156/81; PULSE 120; RESP 16; TEMP 37.1; O2SAT 95; BMI 47.0
--- NOTE | 2023-05-23 14:23 | W.ED.LOWEXIN ---
HPI - Extremity Injury (Lower) General: Chief Complaint: Extremity Injury, Lower Stated Complaint: left knee swollen Time Seen by Provider: 05/23/23 14:11 Source: patient Mode of arrival: ambulatory Limitations: no limitations History of Present Illness: Patient is a 63-year-old female who presents to ED today for evaluation of a left knee injury. Patient states approximately 3 to 4 days ago she was walking when she heard a pop to her left knee and immediately began experiencing pain. She states she was able to continue weightbearing. She states yesterday, again while walking, heard another loud pop that was accompanied by excruciating pain. She was able to finish her 12-hour shift following this but has continued to complain of pain and feels like the knee is swollen. MD complaint: knee injury Onset (ago): day(s) Injury: Left: knee Place: work Severity: moderate Relieving factors: immobilization Exacerbating factors: weight bearing, movement and palpation Associated symptoms: Reports no associated symptoms Other symptoms: none Review of Systems Musc: Reports: joint pain (L knee pain); Denies: joint redness or joint warmth Neuro: Denies: numbness in extremities or sensory changes PFS ED PFSH: Medical History No pertinent past medical history NegHx: thyroid, dvt/pe PCP: Tania Gastroparesis Prinzmetal angina Metatarsalgia of both feet Post traumatic stress disorder (PTSD) Hyperlipidemia Coronary 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 Takes Lyrica for the neuropathy. Does take hydrocodone as needed for pain. GERD (gastroesophageal reflux disease) Controlled on medication Anxiety and depression Diagnosed in the and controlled well on medication at this time managed by primary care provider nurse jami Taveras. Hypertension Diagnosed in 2018 managed by primary care provider nurse jami Taveras Surgical History H/O esophagogastroduodenoscopy (09/01/21) History of coronary angiogram 06/2021 and 05/2022 History of surgery neck lipoma removal- S/P appendectomy 1980-right lower quadrant incision, right ovary and appendix were removed. Hx of breast surgery ductectomy from the left breast done in her late 30s S/P tubal ligation 1982-immediately . History of back surgery Pain pump insertion, removed in 2014 S/P left knee arthroscopy Hx of oophorectomy 1980---right lower quadrant incision-right ovary and appendix were removed when she presented with pain to the emergency room S/P hysterectomy 1985--vaginal hysterectomy with left oophorectomy performed for a uterine mass she was told that there was no cancer but there were some abnormal cells and it was recommended that she have chemotherapy for 6 weeks however she did only 2 weeks and then did not finish the rest of treatment. S/P tonsillectomy and adenoidectomy As a child S/P cholecystectomy Laparoscopic procedure performed in 1992 Family History Mother Heart disease Hypertension Ovarian cancer Diagnosed at age 34 Suicide Thyroid disease Uterine cancer Diagnosed at age 34, unsure of origin Father Heart disease Thyroid disease Sister Thyroid disease Family/Other Thyroid disease [place], granddaughter Other Diabetes Social History Quit status (tobacco/nicotine): has quit using Second hand smoke exposure: No Alcohol intake: former Substance/Drug Use: never Adopted: No Caregiver/support person: No Lives independently: Yes Housing: House Marital status: Number of children: 2 Highest education level completed: Associate Degree: Occupational, Technical, Vocational Program service: Yes Pets and animals: Yes Sexually active: Yes Do you think of yourself as: Straight/Heterosexual Gricel/Judaism: Rastafarian Special gricel needs: No Agree to transfusion: No Physical Exam Const: COMMON NORMALS: no acute distress, no limitations and alert GENERAL APPEARANCE: cooperative NUTRITIONAL APPEARANCE: obese morbidly obese (BMI is 47) Extremity: COMMON NORMALS: capillary refill normal, no calf tenderness and no pedal edema GENERAL: Yes normal exam except as noted LEFT LOWER EXTREMITY: Yes knee joint (TTP throughout L knee joint) Left knee: Yes ROM (limited secondary to pain), Yes neurovascular exam (normal) and Yes other (exam limited by body habitus) Neuro: COMMON NORMALS: moves all extremities, no focal motor deficits, no sensory deficits noted and gait normal (ambulatory here in ED without assistance) SENSORIUM/ORIENTATION: Yes alert Course Vital Signs: Vital signs: Vital Signs Temperature 98.8 F 05/23/23 14:02 Pulse Rate 120 H 05/23/23 14:02 Respiratory Rate 16 05/23/23 14:02 Blood Pressure 156/81 05/23/23 14:02 Pulse Oximetry 95 05/23/23 14:02 Oxygen Delivery Me thod Room Air 05/23/23 14:02 MDM - Extremity Injury (Lower) Medical Decision Making XR negative for acute fracture. History is suspicious for internal derangement of her left knee. Patient states she already sees Dr. Javier for her knees and is requesting follow-up with her. I will place case management referral. Recommend ice and elevation. Patient states she has a walker she can use at home. She states she will also get a Velcro knee sleeve to wear. Medical Records I reviewed the patient's medical records. Lab Data Radiology Impressions Knee X-Ray 05/23/23 14:28 IMPRESSION: Small joint effusion. DJD. No acute bony abnormality. All radiology interpretation(s) finalized by discharge Discharge Plan Discharge Patient Disposition: Home Clinical Impression: Acute internal derangement of left knee Condition: Stable Prescriptions: New hydrocodone-acetaminophen 5-325 mg tablet 1 tab PO Q6H PRN (Reason: pain) Qty: 14 0RF No Action prazosin 2 mg capsule 3 mg PO BEDTIME duloxetine [Cymbalta] 60 mg capsule,delayed release(DR/EC) 60 mg PO BID nitroglycerin 0.4 mg tablet, sublingual 0.4 mg sublingual Q5M PRN (Reason: Chest Pain) Rx Instructions: do not exceed 3 doses per episode metoprolol tartrate 25 mg tablet 12.5 mg PO BID Qty: 60 0RF omeprazole 40 mg capsule,delayed release(DR/EC) 40 mg PO QAM insulin aspart U-100 [Novolog FlexPen U-100 Insulin] 100 unit/mL (3 mL) insulin pen See Rx Instructions .ROUTE .COMPLEX Qty: 45 3RF Rx Instructions: sliding scale 5 units or less before each meal spironolactone 25 mg tablet 25 mg PO DAILY PRN (Reason: Blood Pressure) albuterol sulfate [Ventolin HFA] 90 mcg/actuation HFA aerosol inhaler 2 puff inhalation Q6H PRN (Reason: shortness of breath or wheezing) Qty: 8.5 0RF (DME) Dexcom G6 Roller Varnisher Misc See Rx Instructions .Route Qty: 1 0RF Rx Instructions: Check BS 4 times a day. (DME) FreeStyle Nael 2 Sensor Kit See Rx Instructions .Route Qty: 6 3RF Rx Instructions: As directed isosorbide mononitrate 30 mg tablet extended release 24 hr See Rx Instructions PO BID Qty: 240 3RF Rx Instructions: 60mg in AM, 30 mg in PM orally twice a day; Ozempic 2 mg/dose (8 mg/3 mL) pen injector See Rx Instructions .ROUTE .COMPLEX Qty: 3 1RF Dose Instruction: INJECT 2MG (0.75ML) UNDER THE SKIN EVERY WEEK ON SATURDAYS Rx Instructions: INJECT 2MG (0.75ML) UNDER THE SKIN EVERY WEEK ON SATURDAYS aspirin 81 mg Tablet,Delayed Release (Dr/Ec) 81 mg PO DAILY oxybutynin chloride 15 mg Tablet Extended Release 24hr 30 mg PO QAM amlodipine 5 mg Tablet 5 mg PO QAM alprazolam [Xanax] 0.5 mg Tablet 0.25 mg PO DAILY PRN (Reason: Anxiety) cyanocobalamin (vitamin B-12) 1,000 mcg/mL Solution 1,000 mcg IM Q30D lisinopril 5 mg Tablet 2.5 mg PO BEDTIME buspirone 15 mg Tablet 15 mg PO BID escitalopram oxalate [Lexapro] 10 mg Tablet 5 mg PO QAM pregabalin [Lyrica] 300 mg Capsule 300 mg PO BID cholecalciferol (vitamin D3) [Vitamin D3] 50 mcg (2,000 unit) Capsule 50 mcg PO QAM naloxone 4 mg/actuation [place],Non-Aerosol 4 mg INTRANASAL Q2M PRN (Reason: overdose) Rx Instructions: spray 1 dose into ONE nostril; alternate nostrils w each dose until help arrives Lantus Solostar U-100 Insulin 100 unit/mL (3 mL) insulin pen 15 unit SUBCUT QAM Discharge Orders: Discharge ED (Routine); Ordered 05/23/23 Ordered By: Kesha Schilling Referrals: Anju Taveras FNP [Primary Care Provider] - Patient Instructions: Opioid Safety, Pain Management Activity Restrictions/Additional Instructions: As we discussed you need to ice and elevate your extremity is much as possible to help with swelling. You may use your walker as needed as we discussed. You mentioned you are able to get a hold of a Velcro neoprene knee brace which I recommend wearing. I have placed a referral with Dr. Javier for further follow-up as you may require additional imaging of the knee. Pain medication has been E scripted to the pharmacy of your choice. Coding Level of Care Code ED Emergency Room Registered Nurse for Stefany Morales
--- NOTE | 2023-05-23 14:28 | XRR_ITS ---
PROCEDURE INFORMATION: Exam: XR Left Knee Exam date and time: 05/23/2023 2:33 PM Age: 63 years old Clinical indication: Injury or trauma; Fall; Blunt trauma; Knee; Left TECHNIQUE: Imaging protocol: Radiologic exam of the left knee. Views: 3 views. COMPARISON: CR XR knees AP WB w LT lmt ORTH 07/19/2021 11:45 AM FINDINGS: Bones/joints: There is tricompartmental joint space loss with subchondral sclerosis and osteophytosis. No fracture. Small joint effusion. Soft tissues: Normal. XR/XR knee LT 3V* [id number] IMPRESSION: Small joint effusion. DJD. No acute bony abnormality.
[2023-05-23] MEDS: morphine 4 mg/mL SDV 1 mL IM (14:48)
--- NOTE | 2023-05-23 18:43 | DCPLANNER ---
Message sent to Ortho for a follow up appointment for a internal derangement of the Left knee.
== END 2023-05-23 15:31 | disposition home or self-care (01) ==
PROVIDERS: Emergency Provider Physician Assistant; PCP Nurse Practitioner
DX: Z79.82 Long term (current) use of aspirin (principal); Z79.4 Long term (current) use of insulin; M25.462 Effusion, left knee; M17.12 Unilateral primary osteoarthritis, left knee; Z87.891 Personal history of nicotine dependence; E78.5 Hyperlipidemia, unspecified; I25.10 Atherosclerotic heart disease of native coronary artery without angina pectoris; E11.40 Type 2 diabetes mellitus with diabetic neuropathy, unspecified; I10 Essential (primary) hypertension; M23.92 Unspecified internal derangement of left knee
CPT/HCPCS: 73562; 96372; 99284; J2270

== ENCOUNTER 2023-05-25 19:05 | Emergency (ER) | payer OTHER, SELFPAY ==
[2023-05-25 19:13] VITALS: BP 134/87; PULSE 108; RESP 20; TEMP 36.6; O2SAT 97; BMI 47.0
--- NOTE | 2023-05-25 19:31 | W.ED.EXTPRO ---
HPI - Extremity Problem General: Chief complaint: Extremity Injury, Lower Stated complaint: knee pain Time Seen by Provider: 05/25/23 19:23 History of Present Illness: Patient comes in for increased pain and discomfort to the left knee. Patient has no redness or swelling to the knee. Patient has having difficulty with follow-up with orthopedist office due to having to have [facility] approval. Patient has been seen 2 days ago and was diagnosed with internal derangement of the knee. Patient reports that she did twisted and felt a pop in her knee. Most likely this is a meniscal injury. X-rays at that time showed degenerative changes. Review of Systems General: Reports: 10 or more systems reviewed and unremarkable except in HPI and below Musc: Reports: joint pain (Left knee pain) PFSH ED PFSH: Medical History No pertinent past medical history NegHx: thyroid, dvt/pe PCP: Tania Gastroparesis Prinzmetal angina Metatarsalgia of both feet Post traumatic stress disorder (PTSD) Hyperlipidemia Coronary 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 Takes Lyrica for the neuropathy. Does take hydrocodone as needed for pain. GERD (gastroesophageal reflux disease) Controlled on medication Anxiety and depression Diagnosed in the and controlled well on medication at this time managed by primary care provider nurse jami Taveras. Hypertension Diagnosed in 2018 managed by primary care provider nurse jami Taveras Surgical History H/O esophagogastroduodenoscopy (09/01/21) History of coronary angiogram 06/2021 and 05/2022 History of surgery neck lipoma removal- S/P appendectomy 1980-right lower quadrant incision, right ovary and appendix were removed. Hx of breast surgery ductectomy from the left breast done in her late 30s S/P tubal ligation 1982-immediately . History of back surgery Pain pump insertion, removed in 2014 S/P left knee arthroscopy Hx of oophorectomy 1980---right lower quadrant incision-right ovary and appendix were removed when she presented with pain to the emergency room S/P hysterectomy 1985--vaginal hysterectomy with left oophorectomy performed for a uterine mass she was told that there was no cancer but there were some abnormal cells and it was recommended that she have chemotherapy for 6 weeks however she did only 2 weeks and then did not finish the rest of treatment. S/P tonsillectomy and adenoidectomy As a child S/P cholecystectomy Laparoscopic procedure performed in 1992 Family History Mother Heart disease Hypertension Ovarian cancer Diagnosed at age 34 Suicide Thyroid disease Uterine cancer Diagnosed at age 34, unsure of origin Father Heart disease Thyroid disease Sister Thyroid disease Family/Other Thyroid disease [place], granddaughter Other Diabetes Social History Quit status (tobacco/nicotine): has quit using Second hand smoke exposure: No Alcohol intake: former Substance/Drug Use: never Adopted: No Caregiver/support person: No Lives independently: Yes Housing: House Marital status: Number of children: 2 Highest education level completed: Associate Degree: Occupational, Technical, Vocational Program service: Yes Pets and animals: Yes Sexually active: Yes Do you think of yourself as: Straight/Heterosexual Gricel/Evangelical: Hindu Special gricel needs: No Agree to transfusion: No Physical Exam Const: COMMON NORMALS: alert HENMT: COMMON NORMALS: normocephalic HEAD & SCALP: normocephalic Neck/C-Spine: COMMON NORMALS: full ROM Resp: COMMON NORMALS: normal respiratory effort Cardio: COMMON NORMALS: regular rate RATE: regular rate Back/Pelvis: COMMON NORMALS: thoracic and lumbar spine normal to inspection Extremity: LEFT LOWER EXTREMITY: Yes knee joint (Joint line tenderness, no redness or significant swelling of the knee.) Neuro: SENSORIUM/ORIENTATION: Yes alert Skin: COMMON NORMALS: turgor normal GENERAL SKIN EXAM: turgor normal Course Vital Signs: Vital signs: Vital Signs Temperature 98 F 05/25/23 19:13 Pulse Rate 108 H 05/25/23 19:13 Respiratory Rate 20 H 05/25/23 19:13 Blood Pressure 134/87 05/25/23 19:13 Pulse Oximetry 97 05/25/23 19:13 MDM - Extremity (Nontraumatic) Medical Decision Making 63-year-old female comes in today with pain and discomfort to the left knee. On exam there is some mild swelling to the knee but no redness or induration is noted. No distal swelling or redness is noted to the extremity. Pulses are intact. Differential diagnosis includes but not limited to osteoarthritis knee, meniscal injury, ligament strain/sprain. No sign of serious injury or illnesses noted. Patient was given a injection of ketorolac 30 mg and 1 mg of hydromorphone for her acute pain. Patient was recommended to continue with routine care with hydrocodone and ibuprofen. Patient was recommended to use ice packs and weight-bear as tolerated. No radiology studies performed this visit Discharge Plan Discharge Patient Disposition: Home Clinical Impression: Acute internal derangement of left knee Condition: Stable Prescriptions: No Action prazosin 2 mg capsule 3 mg PO BEDTIME duloxetine [Cymbalta] 60 mg capsule,delayed release(DR/EC) 60 mg PO BID nitroglycerin 0.4 mg tablet, sublingual 0.4 mg sublingual Q5M PRN (Reason: Chest Pain) Rx Instructions: do not exceed 3 doses per episode metoprolol tartrate 25 mg tablet 12.5 mg PO BID Qty: 60 0RF omeprazole 40 mg capsule,delayed release(DR/EC) 40 mg PO QAM insulin aspart U-100 [Novolog FlexPen U-100 Insulin] 100 unit/mL (3 mL) insulin pen See Rx Instructions .ROUTE .COMPLEX Qty: 45 3RF Rx Instructions: sliding scale 5 units or less before each meal spironolactone 25 mg tablet 25 mg PO DAILY PRN (Reason: Blood Pressure) albuterol sulfate [Ventolin HFA] 90 mcg/actuation HFA aerosol inhaler 2 puff inhalation Q6H PRN (Reason: shortness of breath or wheezing) Qty: 8.5 0RF (DME) Dexcom G6 Director Chemistry Misc See Rx Instructions .Route Qty: 1 0RF Rx Instructions: Check BS 4 times a day. (DME) FreeStyle Nael 2 Sensor Kit See Rx Instructions .Route Qty: 6 3RF Rx Instructions: As directed isosorbide mononitrate 30 mg tablet extended release 24 hr See Rx Instructions PO BID Qty: 240 3RF Rx Instructions: 60mg in AM, 30 mg in PM orally twice a day; Ozempic 2 mg/dose (8 mg/3 mL) pen injector See Rx Instructions .ROUTE .COMPLEX Qty: 3 1RF Dose Instruction: INJECT 2MG (0.75ML) UNDER THE SKIN EVERY WEEK ON SATURDAYS Rx Instructions: INJECT 2MG (0.75ML) UNDER THE SKIN EVERY WEEK ON SATURDAYS aspirin 81 mg Tablet,Delayed Release (Dr/Ec) 81 mg PO DAILY oxybutynin chloride 15 mg Tablet Extended Release 24hr 30 mg PO QAM amlodipine 5 mg Tablet 5 mg PO QAM alprazolam [Xanax] 0.5 mg Tablet 0.25 mg PO DAILY PRN (Reason: Anxiety) cyanocobalamin (vitamin B-12) 1,000 mcg/mL Solution 1,000 mcg IM Q30D lisinopril 5 mg Tablet 2.5 mg PO BEDTIME buspirone 15 mg Tablet 15 mg PO BID escitalopram oxalate [Lexapro] 10 mg Tablet 5 mg PO QAM pregabalin [Lyrica] 300 mg Capsule 300 mg PO BID cholecalciferol (vitamin D3) [Vitamin D3] 50 mcg (2,000 unit) Capsule 50 mcg PO QAM naloxone 4 mg/actuation [place],Non-Aerosol 4 mg INTRANASAL Q2M PRN (Reason: overdose) Rx Instructions: spray 1 dose into ONE nostril; alternate nostrils w each dose until help arrives Lantus Solostar U-100 Insulin 100 unit/mL (3 mL) insulin pen 15 unit SUBCUT QAM hydrocodone-acetaminophen 5-325 mg tablet 1 tab PO Q6H PRN (Reason: pain) Qty: 14 0RF Discharge Orders: Discharge ED (Routine); Ordered 05/25/23 Ordered By: Tenzin Hannah Referrals: Anju Taveras, GOVERNMENT AUDITOR [Primary Care Provider] - Discharge Diet: Usual diet Discharge Activity: Increase activity as tolerated Patient Instructions: Knee Pain (ED) Activity Restrictions/Additional Instructions: Activity as tolerated. Use a walker or crutches to help with bearing weight. Use ice to help with control of pain. Continue with ibuprofen and hydrocodone as directed. Follow-up with primary care for further medication refills or prescriptions. Return to ER for new concerns. Coding Level of Care Code ED Clinic Office Manager for Stefany Morales
[2023-05-25] MEDS: ketorolac 30 mg/mL INJ IM (19:46)
[2023-05-25] MEDS: HYDROmorphone 1 mg/mL INJ 1 mL IM (19:46)
== END 2023-05-25 19:46 | disposition home or self-care (01) ==
PROVIDERS: Emergency Provider Nurse Practitioner Family; PCP Nurse Practitioner
DX: M23.92 Unspecified internal derangement of left knee (principal); Z79.82 Long term (current) use of aspirin; Z79.4 Long term (current) use of insulin; E78.5 Hyperlipidemia, unspecified; I25.10 Atherosclerotic heart disease of native coronary artery without angina pectoris; E11.40 Type 2 diabetes mellitus with diabetic neuropathy, unspecified; I10 Essential (primary) hypertension
CPT/HCPCS: 96372; 99284; J1170; J1885

== ENCOUNTER → 2023-06-09 09:42 | Outpatient (BNVA) | payer OTHER, SELFPAY | PROVIDERS: PCP Nurse Practitioner; Visit Provider Nurse Practitioner | DX: S89.92XA Unspecified injury of left lower leg, initial encounter (principal); M17.12 Unilateral primary osteoarthritis, left knee; W19.XXXA Unspecified fall, initial encounter | CPT/HCPCS: 20610; 73560; 73565; 99214; J1100; J2795; J3301 ==

== ENCOUNTER → 2023-06-12 10:29 | Outpatient (BNVA) | payer OTHER, SELFPAY | PROVIDERS: PCP Nurse Practitioner; Visit Provider Podiatrist Foot & Ankle Surgery | DX: E11.42 Type 2 diabetes mellitus with diabetic polyneuropathy (principal); M20.41 Other hammer toe(s) (acquired), right foot; M20.42 Other hammer toe(s) (acquired), left foot; L97.512 Non-pressure chronic ulcer of other part of right foot with fat layer exposed; E11.621 Type 2 diabetes mellitus with foot ulcer; Z79.4 Long term (current) use of insulin | CPT/HCPCS: 99213 ==

== ENCOUNTER → 2023-06-29 10:02 | Outpatient (BNVA) | payer OTHER, SELFPAY | PROVIDERS: PCP Nurse Practitioner; Visit Provider Nurse Practitioner | DX: M17.12 Unilateral primary osteoarthritis, left knee (principal); N19 Unspecified kidney failure; S89.92XA Unspecified injury of left lower leg, initial encounter; W19.XXXA Unspecified fall, initial encounter | CPT/HCPCS: 99214 ==

== ENCOUNTER → 2023-07-13 10:20 | Outpatient (BNVA) | payer OTHER, SELFPAY | PROVIDERS: PCP Nurse Practitioner; Visit Provider Podiatrist Foot & Ankle Surgery | DX: M20.41 Other hammer toe(s) (acquired), right foot (principal); E11.42 Type 2 diabetes mellitus with diabetic polyneuropathy; M20.42 Other hammer toe(s) (acquired), left foot; E11.621 Type 2 diabetes mellitus with foot ulcer; L97.512 Non-pressure chronic ulcer of other part of right foot with fat layer exposed; Z79.4 Long term (current) use of insulin | CPT/HCPCS: 28010 ==

== ENCOUNTER 2023-07-21 07:03 | Outpatient (CLI) | payer OTHER, SELFPAY ==
--- NOTE | 2023-07-21 07:15 | MR_ITS ---
WS: [id number] MRI LEFT KNEE HISTORY: LEFT KNEE PAIN COMPARISON: Radiograph 06/09/2023 Anterior cruciate ligament: Poorly visualized ACL. There is thickening and intermediate signal throug hout the ligament. There is not a full-thickness tear. Posterior cruciate ligament: Intact. Medial collateral ligament: Displacement from the joint line by osteophytes and possible extruded men iscus. There is a small amount of increased T2 signal around the distal tendon. Posterior lateral corner structures: Mild intermediate signal. No tear. Medial menisci: Menisci are extruded from the joint space. Bone upon bone. Abnormal posterior horn co nsistent with a complex tear. Abnormal signal extends into the meniscal root. Anterior horn is extrud ed. Lateral meniscus: No tear. Extensor mechanism: Distal quadriceps tendon and patellar tendons are intact. Fluid and soft tissue: Small joint effusion. Small amount of edema. Moderate-sized Blankenship's cyst. Smal l loose bodies within the Blankenship's cyst. Osseous and articular structures: Patellofemoral compartment: Severe chondromalacia. Near complete loss of cartilage greatest involving the patellar eminence and medial facet. Small amount of marrow edema in the patellar facets. Medial compartment: Severely narrowing of the joint space with complete loss of cartilage. Osteophyte s. No marrow edema. Lateral compartment: Moderate narrowing with advanced chondromalacia. There are full-thickness cartil age defects along the weightbearing surface of the mid femoral condyle and tibial plateau. Additional joint space narrowing with osteophytes. There is a small loose body in the anterior knee joint surro unded by fluid. IMPRESSION: 1. Severe medial compartment internal derangement. Loss of joint space with loss of cartilage and os teophytosis. 2. Medial menisci are extruded from the joint space with complex tear in the posterior horn involvin g the meniscal root. 3. Moderate lateral compartment internal derangement with joint space narrowing and focal loss of ca rtilage. 4. ACL is poorly visualized. ACL appears thickened which is probably due to mucoid degeneration. No full-thickness tear. 5. Severe chondromalacia at the patellofemoral compartment. 6. Displaced MCL by osteophytes and extruded meniscus. 7. Moderate-sized Blankenship's cyst with loose bodies. 8. Small joint effusion. There is a loose body within the fluid just anterior to the lateral compart ment.
== END 2023-07-21 07:04 | disposition home or self-care (01) ==
LOC: RAD 07:03
PROVIDERS: PCP Nurse Practitioner; Visit Provider Nurse Practitioner
DX: M17.12 Unilateral primary osteoarthritis, left knee (principal); M25.562 Pain in left knee
CPT/HCPCS: 73721

== ENCOUNTER → 2023-07-31 07:53 | Outpatient (BNVA) | payer OTHER, SELFPAY | PROVIDERS: PCP Nurse Practitioner; Visit Provider Nurse Practitioner | DX: S83.232A Complex tear of medial meniscus, current injury, left knee, initial encounter; M17.12 Unilateral primary osteoarthritis, left knee; N19 Unspecified kidney failure; Z01.818 Encounter for other preprocedural examination; S89.92XA Unspecified injury of left lower leg, initial encounter; G89.29 Other chronic pain; M25.562 Pain in left knee; X58.XXXA Exposure to other specified factors, initial encounter | CPT/HCPCS: 36415; 80053; 81001; 83036; 85025; 87077; 87086; 87186; 99214 ==

== ENCOUNTER → 2023-08-11 12:12 | Outpatient (BNVA) | payer OTHER, SELFPAY | PROVIDERS: PCP Nurse Practitioner; Visit Provider Family Medicine | DX: Z01.818 Encounter for other preprocedural examination (principal) | CPT/HCPCS: 81003; 87086 ==

== ENCOUNTER 2023-09-07 08:20 | Day surgery (SDC) | payer OTHER, SELFPAY ==
[2023-09-07] VITALS (13 sets, daily range): BP systolic 87–148; BP diastolic 43–82; PULSE 77–106; RESP 14–21; TEMP 36.1–36.3; O2SAT 90–96
[2023-09-07] MEDS: sodium chloride 0.9% 1,000 ML 30 ML IV (08:50)
[2023-09-07] MEDS: acetaminophen 1,000 MG/100 ML PIGGYBACK 400 MG IV (08:52)
[2023-09-07] MEDS: CELEcoxib 200 mg Capsule 400 MG PO (08:53)
[2023-09-07] MEDS: gabapentin 300 mg Capsule PO (08:53)
[2023-09-07 09:02] LABS: Glucose Point of Care 180 mg/dL (70-110)
--- NOTE | 2023-09-07 09:59 | W.PM.OPSUD ---
Surgery/Procedure H&P Update DATE OF PROCEDURE: September 07, 2023 DATE H&P PERFORMED: 08/11/23 H&P UPDATE INFORMATION: I have reviewed H&P completed within last 30 days, I have examined patient prior to procedure, No changes to prior documentation and H&P is in [facility] EMR on date indicated PRIMARY INDICATION FOR PROCEDURE: IMPRESSION: 1. Severe medial compartment internal derangement. Loss of joint space with loss of cartilage and osteophytosis. 2. Medial menisci are extruded from the joint space with complex tear in the posterior horn involving the meniscal root. 3. Moderate lateral compartment internal derangement with joint space narrowing and focal loss of cartilage. 4. ACL is poorly visualized. ACL appears thickened which is probably due to mucoid degeneration. No full-thickness tear. 5. Severe chondromalacia at the patellofemoral compartment. 6. Displaced MCL by osteophytes and extruded meniscus. 7. Moderate-sized Blankenship's cyst with loose bodies. 8. Small joint effusion. There is a loose body within the fluid just anterior to the lateral compartment. PLANNED PROCEDURE: Operation Date: 09/07/23 10:00 Proposed Procedures p Knee Arthroscopy Knee Arthroscopy w/ possible Medial Menisectomy(Left) - Rhonda Javier MD s Debridement Lower Extremity/ Left Knee(Left) - Rhonda Javier MD Related Problem List Diagnoses (1) Osteoarthritis of left knee: Qualifiers: Osteoarthritis type: primary Qualified Code(s): M17.12 - Unilateral primary osteoarthritis, left knee (2) Tear of medial meniscus of left knee, current: Qualifiers: Encounter type: initial encounter Meniscus tear of knee type: complex Qualified Code(s): S83.232A - Complex tear of medial meniscus, current injury, left knee, initial encounter
--- NOTE | 2023-09-07 10:00 | ANES.PREANE2 ---
Pre-Anesthetic Assessment Height/Weight: Height 1.68 m Weight 136.078 kg Temp Pulse Resp BP Pulse Ox O2 Del Method 97.1 F L 106 H 18 148/82 96 Room Air 09/07/23 08:34 09/07/23 08:34 09/07/23 08:34 09/07/23 08:34 09/07/23 08:34 09/07/23 08:34 Operation Date: 09/07/23 10:00 Proposed Procedures p Knee Arthroscopy Knee Arthroscopy w/ possible Medial Menisectomy(Left) - Rhonda Javier MD s Debridement Lower Extremity/ Left Knee(Left) - Rhonda Javier MD Familial anesthetic complications: PONV Was Beta Abiel taken within 24 hours: N/A Was Clonidine taken within 24 hours: N/A Last intake: Intake Last Liquid Date 09/06/23 Last Liquid Time 23:00 Last Solid Date 09/06/23 Last Solid Time 19:30 Social No alcohol and No tobacco Exam alert, oriented x 3, clear to auscultation bilaterally and regular rate & rhythm Airway Submandibular: within normal limits Cervical ROM: within normal limits Mallampati: Class II Dentition: false CV/HEM Coronary Artery Disease, Hypertension and Myocardial Infarction GI Gastroesophageal Reflux Disease Metabolic Diabetes Mellitus and Morbid Obesity Musc/skel Osteoarthritis/DJD Neuropsych Anxiety, Depression and Neuropathy Anesthetic Plan ASA status: 3 Anesthesia: General (TIVA) Medications/Allergies Home Medications Medication Instructions Recorded Confirmed Last Taken Type blood-glucose meter,continuous #1 ea 05/17/21 07/13/23 08/31/21 Rx (Dexcom G6 Quality Improvement Analyst) duloxetine 60 mg capsule,delayed 60 mg PO BID 06/07/21 09/06/23 09/06/23 History release (Cymbalta) metoprolol tartrate 25 mg tablet 12.5 mg (1/2 x 25 mg) PO BID #60 07/14/21 09/07/23 09/07/23 Rx tabs omeprazole 40 mg capsule,delayed 40 mg PO QAM 10/18/21 09/07/23 09/07/23 History release prazosin 2 mg capsule 3 mg PO BEDTIME 10/18/21 09/06/23 09/05/23 History flash glucose sensor (FreeStyle #6 ea 04/19/22 07/13/23 Unknown Rx Nael 2 Sensor kit) alprazolam 0.5 mg tablet (Xanax) 0.25 mg PO DAILY PRN Anxiety 06/17/22 09/06/23 12/16/22 06:30 History 0.25 amlodipine 5 mg tablet 5 mg PO QAM 06/17/22 09/07/23 09/07/23 History buspirone 15 mg tablet 15 mg PO BID 06/17/22 09/06/23 09/06/23 History cholecalciferol (vitamin D3) 50 50 mcg PO QAM 06/17/22 09/06/23 09/06/23 History mcg (2,000 unit) capsule (Vitamin D3) cyanocobalamin (vitamin B-12) 1,000 mcg IM Q30D 06/17/22 09/06/23 11/19/22 History 1,000 mcg/mL injection solution oxybutynin chloride 15 mg 30 mg PO QAM 06/17/22 09/06/23 09/06/23 History tablet,extended release 24 hr pregabalin 300 mg capsule (Lyrica) 300 mg PO BID 06/17/22 09/06/23 09/06/23 History isosorbide mononitrate 30 mg See Rx Instructions PO BID #240 11/04/22 09/07/23 09/07/23 Rx tablet,extended release 24 hr tabs albuterol sulfate 90 mcg/actuation 2 puff inhalation Q6H PRN 01/04/23 09/06/23 Unknown Rx aerosol inhaler (Ventolin HFA) shortness of breath or wheezing #8.5 grams diclofenac sodium 1 % topical gel 4 g topical QID #100 grams 06/29/23 09/06/23 Unknown Rx insulin glargine 100 unit/mL (3 75 unit SUBCUT QAM 07/31/23 09/06/23 09/06/23 History mL) subcutaneous pen (Lantus Solostar U-100 Insulin) cyproheptadine 4 mg tablet 4 mg PO .qhs 08/11/23 09/06/23 09/05/23 History tirzepatide 7.5 mg/0.5 mL 7.5 mg SUBCUT ONCE 08/11/23 09/06/23 Unknown History subcutaneous pen injector (Eli) Allergies Allergy/AdvReac Type Severity Reaction Status Date / Time ondansetron [From Zofran] Allergy Severe Dystonia Verified 09/06/23 11:21 bee venom protein (honey bee) Allergy anaphylaxis Verified 09/06/23 11:21 Influenza Virus Vaccines Allergy anaphylacti Verified 09/06/23 11:21 c mushroom Allergy anaphylaxis Verified 09/06/23 11:21 tetracycline Allergy Rash, Verified 09/06/23 11:21 shortness of breath trazodone Allergy Rash, Verified 09/06/23 11:21 trouble breathing Current Medications Generic Name Dose Route Start Last Admin Trade Name Freq PRN Reason Stop Dose Admin Sodium Chloride 1,000 mls @ 30 mls/hr 09/07/23 08:30 09/07/23 08:50 Sodium Chloride 0.9% IV 09/08/23 08:29 30 mls/hr .Q24H MAI Administration PFSH Anesthesia Medical History Tear of medial meniscus of left knee, current Renal failure Left knee pain No pertinent past medical history NegHx: thyroid, dvt/pe PCP: Tania Gastroparesis Prinzmetal angina Metatarsalgia of both feet Post traumatic stress disorder (PTSD) Hyperlipidemia Coronary 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 Takes Lyrica for the neuropathy. Does take hydrocodone as needed for pain. GERD (gastroesophageal reflux disease) Controlled on medication Anxiety and depression Diagnosed in the and controlled well on medication at this time managed by primary care provider nurse practitioner Nitin. Hypertension Diagnosed in 2018 managed by primary care provider nurse practitioner Nitin Surgical History H/O esophagogastroduodenoscopy (09/01/21) History of coronary angiogram 06/2021 and 05/2022 History of surgery neck lipoma removal- S/P appendectomy 1980-right lower quadrant incision, right ovary and appendix were removed. Hx of breast surgery ductectomy from the left breast done in her late 30s S/P tubal ligation 1982-immediately . History of back surgery Pain pump insertion, removed in 2014 S/P left knee arthroscopy Hx of oophorectomy 1980---right lower quadrant incision-right ovary and appendix were removed when she presented with pain to the emergency room S/P hysterectomy 1985--vaginal hysterectomy with left oophorectomy performed for a uterine mass she was told that there was no cancer but there were some abnormal cells and it was recommended that she have chemotherapy for 6 weeks however she did only 2 weeks and then did not finish the rest of treatment. S/P tonsillectomy and adenoidectomy As a child S/P cholecystectomy Laparoscopic procedure performed in 1992 Family History Mother Heart disease Hypertension Ovarian cancer Diagnosed at age 34 Suicide Thyroid disease Uterine cancer Diagnosed at age 34, unsure of origin Father Heart disease Thyroid disease Sister Thyroid disease Family/Other Thyroid disease [place], granddaughter Other Diabetes Social History Quit status (tobacco/nicotine): has quit using Second hand smoke exposure: No Alcohol intake: former Substance/Drug Use: never Adopted: No Caregiver/support person: No Lives independently: Yes Housing: House Marital status: Number of children: 2 Highest education level completed: Associate Degree: Occupational, Technical, Vocational Program service: Yes Pets and animals: Yes Sexually active: Yes Do you think of yourself as: Straight/Heterosexual Gricel/Orthodox: Hoahaoism Special gricel needs: No Agree to transfusion: No Data Anesthesia Cardiac Studies: Echocardiogram 06/16/22 Sestamibi Stress Test (Cardiology) 06/16/22 Cardiac Event Monitor 01/04/23
[2023-09-07] MEDS: scopolamine 1.5 Patch 1 PATCH TRANSDERMA (10:08)
[2023-09-07] MEDS: diphenhydrAMINE 50 mg/mL SDV 1mL 12.5 MG IVP (10:10)
[2023-09-07] MEDS: ceFAZolin 3,000 MG in sodium chloride 0.9% (100 ml) 100 ML 200 MG IV (10:54)
[2023-09-07] MEDS: morphine 4 mg/mL SDV 1 mL 8 MG XX (12:28)
[2023-09-07] MEDS: ROPivacaine 0.5% SDV 30 mL 150 MG INJECTION (12:28)
--- NOTE | 2023-09-07 12:36 | PM.OP ---
Operative Report Date of procedure: September 07, 2023 Pre-op diagnosis: Osteoarthritis of the left knee with medial and lateral meniscal tears and loose body Post-op diagnosis: Osteoarthritis left knee with medial and lateral meniscal tears and loose body Procedure done: Left knee arthroscopy with partial medial and lateral meniscectomies, arthroplasties medial lateral and patellofemoral compartment, and removal of loose body. Implants: None Pathology: None Surgeon: Rhonda Javier MD Quality Control Expert: None Anesthesia: General (Intubated, ASA 3) Estimated blood loss (mL): 3 Tourniquet time (min): 44 (At 250 mmHg) IV fluids (mL): 700 Urine output (mL): 0 (No Grande) Complications: None Findings: Significant degenerative osteoarthritis of the left knee with meniscus tears, loose bodies, osteophytes, and complete denudement of cartilage. Condition: stable Disposition: PACU (Then return to same-day surgery for discharge to home) Brief History: This 63-year-old woman presented to the office for evaluation of left knee pain following an injury to her left knee. Date of injury was May 23, 2023. Patient noted that she was walking, and she heard a pop with immediate onset of pain. At that time, she felt nauseous, became sweaty, and fell. As the day went on, the patient was unable to weight-bear. She was seen 2 times in the ER following the injury. She continued to have popping in the knee. MRI was obtained and demonstrated meniscus pathology but also degenerative osteoarthritis. She continued to have pain at an 8 of 10. She was given hydrocodone from the emergency department. Her current BMI is 48.4, and she understands that she is not a candidate for total knee arthroplasty. She wished to proceed with arthroscopic knee evaluation and debridement. Risks and complications were discussed with the patient, and consents were signed. Questions were answered in the office at that time. Procedure: Patient was brought to the operating theater and after undergoing adequate general anesthesia, intubated, ASA 3, the patient's left lower extremity was prepped and draped in usual fashion utilizing DuraPrep. A tourniquet was placed high on the leg prior to prepping and draping. The tourniquet was elevated prior to commencement of the surgical procedure to 250 mmHg. Total tourniquet time was 44 minutes. Elevation followed prepping and exsanguination. Prior to commencement of the surgical procedure, a surgical pause was performed. At the time of the surgical pause, we identified the site and side of surgery. We also confirmed the patient's identity and appropriate and timely administration of preoperative antibiotics, Ancef 3 g. Preoperative surgical markings were also visualized at this time. Standard arthroscopic portals were utilized including superolateral, inferomedial, and inferolateral portals. The examination commenced in the suprapatellar pouch area where the patient was noted to have significant chondromalacia of the undersurface of the patella and of the trochlear groove. He arthroscope was then passed into the medial compartment. There was noted to be extrusion of the medial meniscus as well as significant osteoarthritic change involving the medial femoral condyle and medial tibial plateau. Medial meniscus was evaluated. There was irregularity to the posterior horn of the meniscus. There is also irregularity anteriorly. As the scope was passed across the notch area, there was noted to be an anterior loose body in the anterior lateral aspect of the knee. The leg was then placed in a [id number] position, and the lateral compartment demonstrated significant inner rim tearing of the meniscus. There was also significant osteoarthritic change on both the lateral femoral condyle and lateral tibial plateau. These findings were consistent with severe degenerative osteoarthritic change. Combination of an intra-articular heat wand and shaver were used to address the lateral meniscus first. This was palpated and found to be not displaceable into the knee joint. Anteriorly, loose bodies had been removed uneventfully. There were also some osteophytes in this area which were removed as well. Following this, the scope was passed in the medial compartment where the posterior horn the medial meniscus as well as junction of the anterior middle third was addressed with a combination of the intra-articular heat wand and the heat wand as well. There were noted to be no further loose bodies. The gutters were evaluated. Overall, shaving was accomplished of the cartilage overlying the femoral condyles both medially and laterally as well as both tibial plateaus. The patella and trochlear groove were also debrided. Following this, the scope was passed back through the knee to determine whether or not there were any other areas which required arthroscopic debridement or treatment. Finding no further issues, attention was directed to closure. The knee was copiously irrigated and suctioned dry. Each portal was then closed with a simple suture followed by Dermabond, Steri-Strip, and OpSite. A sterile dressing was further placed consisting of soft roll and an James wrap. The tourniquet was released after 44 minutes. There were no complications and no specimens. After closure of the portals, the knee was injected with 20 mL of half percent ropivacaine and 8 mg of morphine. An additional 10 cc of ropivacaine was placed about the portals. Patient was returned to recovery room and will be discharged to home to follow-up in the office as scheduled. Related Problem List Diagnoses (1) Osteoarthritis of left knee: (2) Tear of medial meniscus of left knee, current:
[2023-09-07] MEDS: HYDROmorphone 1 mg/mL INJ 1 mL 0.5 MG IVP (13:06)
[2023-09-07] MEDS: HYDROcodone-acetaminophen 5-325 mg Tablet 1 TAB PO (13:54)
--- NOTE | 2023-09-07 15:06 | ANE.PACU2 ---
Inpatient post-anesthesia follow up: Airway intact: Yes Vital signs: Temperature 97.4 F Pulse Rate 77 Respiratory Rate 18 Blood Pressure 91/52 Pulse Oximetry 91 Oxygen Delivery Me thod Nasal Cannula Oxygen Flow Rate 2 Fraction of Inspir ed Oxygen Hydration adequate: Yes Nausea and vomiting: No Pain level: 3 Mental status: Baseline
== END 2023-09-07 14:40 | disposition home or self-care (01) ==
PROVIDERS: PCP Nurse Practitioner; Visit Provider Specialist
PROC: (CPT 29870; principal; 2023-09-07 10:00)
PROC: (CPT 29879; 2023-09-07 10:00)
DX: M17.12 Unilateral primary osteoarthritis, left knee (principal); S83.282A Other tear of lateral meniscus, current injury, left knee, initial encounter; X58.XXXA Exposure to other specified factors, initial encounter; M23.42 Loose body in knee, left knee; I25.10 Atherosclerotic heart disease of native coronary artery without angina pectoris; I10 Essential (primary) hypertension; I25.2 Old myocardial infarction; K21.9 Gastro-esophageal reflux disease without esophagitis; E66.01 Morbid (severe) obesity due to excess calories; Z68.42 Body mass index [BMI] 45.0-49.9, adult; E11.40 Type 2 diabetes mellitus with diabetic neuropathy, unspecified; Z79.4 Long term (current) use of insulin; Z87.891 Personal history of nicotine dependence
CPT/HCPCS: 29879; 29880; 36416; 82962; J0131; J0330; J0690; J1100; J1170; J1200; J2270; J2371; J2704; J2765; J2795; J3010; J7030

== ENCOUNTER → 2023-09-18 09:35 | Outpatient (BNVA) | payer OTHER, SELFPAY | PROVIDERS: PCP Nurse Practitioner; Visit Provider Specialist | DX: S83.232D Complex tear of medial meniscus, current injury, left knee, subsequent encounter; X58.XXXD Exposure to other specified factors, subsequent encounter | CPT/HCPCS: 99024 ==

== ENCOUNTER → 2023-09-19 11:13 | Outpatient (BNVA) | payer OTHER, SELFPAY | PROVIDERS: PCP Nurse Practitioner; Visit Provider Podiatrist Foot & Ankle Surgery | DX: M20.41 Other hammer toe(s) (acquired), right foot (principal); E11.42 Type 2 diabetes mellitus with diabetic polyneuropathy; M20.42 Other hammer toe(s) (acquired), left foot; Z79.4 Long term (current) use of insulin | CPT/HCPCS: 28010 ==

== ENCOUNTER 2023-10-10 12:20 | Outpatient (RCR) | payer OTHER, SELFPAY | END 2023-10-27 23:59 | disposition home or self-care (01) | LOC: SPT 12:20 | PROVIDERS: PCP Nurse Practitioner; Visit Provider Specialist | DX: M25.562 Pain in left knee (principal) | CPT/HCPCS: 97110; 97161 ==

== ENCOUNTER → 2023-10-20 08:51 | Outpatient (BNVA) | payer OTHER, SELFPAY | PROVIDERS: PCP Nurse Practitioner; Visit Provider Specialist | DX: M17.0 Bilateral primary osteoarthritis of knee (principal); M25.561 Pain in right knee; Z71.89 Other specified counseling; M25.562 Pain in left knee | CPT/HCPCS: 20610; J1100; J2795; J3301 ==

== ENCOUNTER → 2023-12-18 06:57 | Outpatient (BNVA) | payer OTHER, SELFPAY | PROVIDERS: Visit Provider Podiatrist Foot & Ankle Surgery | DX: E11.42 Type 2 diabetes mellitus with diabetic polyneuropathy; S91.201A Unspecified open wound of right great toe with damage to nail, initial encounter; Z79.4 Long term (current) use of insulin; W17.89XA Other fall from one level to another, initial encounter | CPT/HCPCS: 73630; 99213 ==

== ENCOUNTER → 2024-01-26 09:00 | Outpatient (BNVA) | payer OTHER, SELFPAY | PROVIDERS: PCP Nurse Practitioner; Visit Provider Nurse Practitioner | DX: M17.0 Bilateral primary osteoarthritis of knee (principal); Z71.89 Other specified counseling | CPT/HCPCS: 20610; J1100; J2795; J3301 ==

== ENCOUNTER → 2024-03-26 11:19 | Outpatient (BNVA) | payer OTHER, SELFPAY | PROVIDERS: PCP Nurse Practitioner; Visit Provider Podiatrist Foot & Ankle Surgery | DX: E11.42 Type 2 diabetes mellitus with diabetic polyneuropathy (principal); M20.41 Other hammer toe(s) (acquired), right foot; M20.42 Other hammer toe(s) (acquired), left foot; M21.41 Flat foot [pes planus] (acquired), right foot; M21.42 Flat foot [pes planus] (acquired), left foot; L60.3 Nail dystrophy; Z79.4 Long term (current) use of insulin | CPT/HCPCS: 11721 ==

== ENCOUNTER → 2024-05-03 07:49 | Outpatient (BNVA) | payer OTHER, SELFPAY | PROVIDERS: PCP Nurse Practitioner; Visit Provider Nurse Practitioner | DX: M17.0 Bilateral primary osteoarthritis of knee (principal); Z71.89 Other specified counseling | CPT/HCPCS: 20610; J1100; J2795; J3301 ==

== ENCOUNTER → 2024-05-30 14:28 | Outpatient (BNVA) | payer OTHER, SELFPAY | PROVIDERS: PCP Nurse Practitioner; Visit Provider Podiatrist Foot & Ankle Surgery | DX: L97.512 Non-pressure chronic ulcer of other part of right foot with fat layer exposed; E11.621 Type 2 diabetes mellitus with foot ulcer; E11.42 Type 2 diabetes mellitus with diabetic polyneuropathy; Z79.4 Long term (current) use of insulin | CPT/HCPCS: 73630; 99213 ==

== ENCOUNTER 2024-06-13 06:00 | Outpatient (CLI) | payer OTHER, SELFPAY | END 2024-06-13 23:59 | disposition home or self-care (01) | LOC: SPT 06-14 08:29 | PROVIDERS: Visit Provider Podiatrist Foot & Ankle Surgery | DX: Z46.89 Encounter for fitting and adjustment of other specified devices (principal); L97.512 Non-pressure chronic ulcer of other part of right foot with fat layer exposed | CPT/HCPCS: L4361 ==

== ENCOUNTER 2024-06-13 17:25 | Emergency (ER) | payer OTHER, SELFPAY ==
[2024-06-13] VITALS (7 sets, daily range): BP systolic 105–148; BP diastolic 60–84; PULSE 67–87; RESP 15–24; TEMP 36.4; O2SAT 94–99; BMI 42.3
--- NOTE | 2024-06-13 17:36 | ECG_ITS ---
[employer] Test Date: 2024-06-13 Pat Name: Randi Kay Department: Room: Gender: Female Order Entry Specialist: : 1960 Requested By: Nini Coleman Order Number: [id number] Delores MD: ARIANA DUNCAN Measurements Intervals [place] Rate: 73 P: 29 [place]: 167 QRS: -67 QRSD: 171 T: 23 QT: 440 QTc: 485 Interpretive Statements SINUS RHYTHM RIGHT BUNDLE BRANCH BLOCK [120+ ms QRS DURATION, UPRIGHT V1, 40+ ms S IN I/aVL/V4/V5/V6] LEFT ANTERIOR FASCICULAR BLOCK [QRS AXIS <= -45, QR IN I, RS IN II] POSSIBLE ANTERIOR MYOCARDIAL INFARCTION , OF INDETERMINATE AGE [30 ms Q WAVE IN V3/V4, OR R < 0.2 mV IN V4] Compared to ECG 10/05/2022 14:49:49 Myocardial infarct finding now present Electronically Signed On 06-14-2024 23:23:09 MINERALOGY TEACHER by ARIANA DUNCAN [email or web address]
[2024-06-13 18:40] LABS: Basophils # 0.1 10^3/uL (0.0-0.1); Basophils % 0.6 %; Eosinophils # 0.1 10^3/uL (0.0-0.8); Eosinophils % 1.4 %; Hematocrit 41.9 % (36-47); Lymphocytes # 2.6 10^3/uL (0.8-4.8); Lymphocytes % 31.3 %; Mean Corpuscular HGB Conc 33.4 g/dL (30-55); Mean Corpuscular Hemoglobin 28.6 pg (27-33); Mean Corpuscular Volume 85.5 fl (85-98); Mean Platelet Volume 12.7 fL (7.4-10.4); Monocytes # 0.9 10^3/uL (0.2-0.9); Neutrophils # 4.62 10^3/uL (1.8-7.7); Neutrophils % 55.3 %; Nucleated Red Blood Cells % 0 %; Platelet Count 173 10^3/cmm (157-399); Red Cell Distribution Width 15.7 % (12.1-15.1); White Blood Count 8.36 10^3/uL (3.29-11.43)
[2024-06-13 18:56] LABS: Alanine Aminotransferase 25 U/L (0-33); Albumin Level 3.2 g/dL (3.5-5.2); Alkaline Phosphatase 104 U/L (35-105); Anion Gap 11.8 (5-19); Aspartate Amino Transferase 29 U/L (0-32); Blood Urea Nitrogen 9 mg/dL (8-23); Calcium 8.3 mg/dL (8.5-10.5); Carbon Dioxide 26 mmol/L (22-29); Chloride 108 mmol/L (98-107); Creatinine Clr Calc Pharmacy 131.9063; Globulin 2.7 g/dL (1.3-4.6); Glomerular Filtration Rate 101.3 mL/min (90-130); Glucose 116 mg/dL (65-115); Magnesium 1.8 mg/dL (1.7-2.3); Osmolality Calculated 296 mOsm/kg (285-295); Sodium 143 mmol/L (136-145); Total Bilirubin 0.4 mg/dL (0.15-1.2); Total Protein 5.9 g/dL (6.6-8.7)
[2024-06-13 19:22] LABS: Potassium 2.8 mmol/L (3.5-5.1)
--- NOTE | 2024-06-13 19:43 | W.ED.RECABL ---
HPI - Recheck/Abnormal Lab/Rx General: Chief Complaint: Recheck/Abnormal Lab/Rx [facility] Time Seen by Provider: 06/13/24 19:30 Source: patient Mode of arrival: ambulatory Limitations: no limitations History of Present Illness: Patient is a 64-year-old female here after she was called [facility] the [facility] over a critical potassium level of 2.6. Patient states she had routine blood work performed about a week ago which showed a potassium of 3.1. She was given oral liquid potassium to start taking twice daily. She states she is status post gastric bypass surgery in February and can only take small amounts of oral liquid at a time. She states she has been doing 15ml/20meq liquid potassium chloride twice daily. [facility] went to the [facility] today to have her potassium rechecked and was told it was 2.6 thus they sent patient to the emergency department for probable IV potassium. Patient is not having any muscle weakness. She arrives in no acute distress with stable vital signs. MD complaint: abnormal lab Returns today for: called because of abnormal lab/test Symptoms since prior visit: no new symptoms Associated symptoms: none Related Data Home Medications Medication Instructions Recorded Confirmed duloxetine 60 mg capsule,delayed 60 mg PO BID 06/07/21 06/13/24 release (Cymbalta) omeprazole 40 mg capsule,delayed 40 mg PO QAM 10/18/21 06/13/24 release prazosin 2 mg capsule 3 mg PO BEDTIME 10/18/21 06/13/24 alprazolam 0.5 mg tablet (Xanax) 0.25 mg PO DAILY PRN Anxiety 06/17/22 06/13/24 amlodipine 5 mg tablet 5 mg PO QAM 06/17/22 06/13/24 buspirone 15 mg tablet 15 mg PO BID 06/17/22 06/13/24 cholecalciferol (vitamin D3) 50 50 mcg PO QAM 06/17/22 06/13/24 mcg (2,000 unit) capsule (Vitamin D3) cyanocobalamin (vitamin B-12) 1,000 mcg IM Q30D 06/17/22 06/13/24 1,000 mcg/mL injection solution oxybutynin chloride 15 mg 30 mg PO QAM 06/17/22 06/13/24 tablet,extended release 24 hr pregabalin 300 mg capsule (Lyrica) 300 mg PO BID 06/17/22 06/13/24 insulin glargine 100 unit/mL (3 75 unit SUBCUT QAM 07/31/23 06/13/24 mL) subcutaneous pen (Lantus Solostar U-100 Insulin) cyproheptadine 4 mg tablet 4 mg PO .qhs 08/11/23 06/13/24 tirzepatide 7.5 mg/0.5 mL 7.5 mg SUBCUT ONCE 08/11/23 06/13/24 subcutaneous pen injector (Onealunsarahro) Previous Rx's Medication Instructions Recorded blood-glucose meter,continuous #1 ea 05/17/21 (Dexcom G6 Veterinary Parasitologist) metoprolol tartrate 25 mg tablet 12.5 mg (1/2 x 25 mg) PO BID #60 07/14/21 tabs flash glucose sensor (FreeStyle #6 ea 04/19/22 Nael 2 Sensor kit) isosorbide mononitrate 30 mg See Rx Instructions PO BID #240 11/04/22 tablet,extended release 24 hr tabs albuterol sulfate 90 mcg/actuation 2 puff inhalation Q6H PRN 01/04/23 aerosol inhaler (Ventolin HFA) shortness of breath or wheezing #8.5 grams diclofenac sodium 1 % topical gel 4 g topical QID #100 grams 06/29/23 mupirocin 2 % topical ointment 1 applic topical BID 2 weeks #22 05/30/24 grams CAM walker #1 ea 06/13/24 mupirocin 2 % topical ointment 1 applic topical TID #15 grams 06/13/24 Allergies Allergy/AdvReac Type Severity Reaction Status Date / Time ondansetron [From Zofran] Allergy Severe Dystonia Verified 06/13/24 17:39 bee venom protein (honey bee) Allergy anaphylaxis Verified 06/13/24 17:39 Influenza Virus Vaccines Allergy anaphylacti Verified 06/13/24 17:39 c mushroom Allergy anaphylaxis Verified 06/13/24 17:39 tetracycline Allergy Rash, Verified 06/13/24 17:39 shortness of breath trazodone Allergy Rash, Verified 06/13/24 17:39 trouble breathing Review of Systems Const: Denies: fever(s), chills, body aches, fatigue or malaise Card: Denies: chest pain or palpitations Resp: Denies: dyspnea GI: Denies: nausea or vomiting Musc: Denies: neck pain, back pain, extremity pain, extremity swelling, joint pain, joint swelling or muscle weakness Neuro: Denies: headache(s) PFSH ED PFSH: Medical History Tear of medial meniscus of left knee, current Renal failure Left knee pain No pertinent past medical history NegHx: thyroid, dvt/pe PCP: Tania Gastroparesis Prinzmetal angina Metatarsalgia of both feet Post traumatic stress disorder (PTSD) Hyperlipidemia Coronary 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 Takes Lyrica for the neuropathy. Does take hydrocodone as needed for pain. GERD (gastroesophageal reflux disease) Controlled on medication Anxiety and depression Diagnosed in the and controlled well on medication at this time managed by primary care provider nurse practitioner Nitin. Hypertension Diagnosed in 2017 managed by primary care provider nurse practitioner Nitin Surgical History H/O esophagogastroduodenoscopy (09/01/21) History of coronary angiogram 06/2021 and 05/2022 History of surgery neck lipoma removal- S/P appendectomy 1980-right lower quadrant incision, right ovary and appendix were removed. Hx of breast surgery ductectomy from the left breast done in her late 30s S/P tubal ligation 1982-immediately . History of back surgery Pain pump insertion, removed in 2014 S/P left knee arthroscopy Hx of oophorectomy 1980---right lower quadrant incision-right ovary and appendix were removed when she presented with pain to the emergency room S/P hysterectomy 1985--vaginal hysterectomy with left oophorectomy performed for a uterine mass she was told that there was no cancer but there were some abnormal cells and it was recommended that she have chemotherapy for 6 weeks however she did only 2 weeks and then did not finish the rest of treatment. S/P tonsillectomy and adenoidectomy As a child S/P cholecystectomy Laparoscopic procedure performed in 1992 Family History Mother Heart disease Hypertension Ovarian cancer Diagnosed at age 34 Suicide Thyroid disease Uterine cancer Diagnosed at age 34, unsure of origin Father Heart disease Thyroid disease Sister Thyroid disease Family/Other Thyroid disease [place], granddaughter Other Diabetes Social History Smoking and tobacco/nicotine status: never used tobacco/nicotine Quit status (tobacco/nicotine): has quit using Second hand smoke exposure: No Alcohol intake: former Substance/Drug Use: never Adopted: No Caregiver/support person: No Lives independently: Yes Housing: House Marital status: Number of children: 2 Highest education level completed: Associate Degree: Occupational, Technical, Vocational Program service: Yes Pets and animals: Yes Sexually active: Yes Do you think of yourself as: Straight/Heterosexual Gricel/Jehovah'S Witness: Adventist Special gricel needs: No Agree to transfusion: No Physical Exam Const: COMMON NORMALS: no acute distress, no limitations, alert and well nourished GENERAL APPEARANCE: cooperative Resp: COMMON NORMALS: normal respiratory effort and clear to auscultation bilaterally AUSCULTATION: clear to auscultation bilaterally Cardio: COMMON NORMALS: regular rate and regular rhythm RATE: regular rate RHYTHM: regular rhythm Neuro: RADHA COMA SCALE: document GCS findings [place] coma scale eye opening: Spontaneous [place] coma scale verbal response: Orientated [place] coma scale motor response: Obey commands Radha coma scale total score: 15 COMMON NORMALS: moves all extremities, no focal motor deficits and no sensory deficits noted SENSORIUM/ORIENTATION: Yes alert Course Vital Signs: Vital signs: Vital Signs Temperature 97.5 F L 06/13/24 17:29 Pulse Rate 72 06/13/24 23:03 Respiratory Rate 19 H 06/13/24 23:03 Blood Pressure 105/63 06/13/24 23:03 Pulse Oximetry 96 06/13/24 23:03 Oxygen Delivery Me thod Room Air 06/13/24 20:14 MDM - Recheck/Abnormal Lab/Rx Medical Decision Making Patient is a nice 64-year-old female here [facility]. On lab draw here, her potassium was 2.8. Patient asymptomatic. No EKG changes noted-no changes from previous. Mag normal. She was given 20 mEq IV potassium as well as 20 mEq oral. Repeat potassium is 3.3. Will have her continue her potassium at home at 60 mEq daily over the next 3 days and then down to 40 mEq daily. She will have her potassium rechecked through the [facility] next week. Medical Records I reviewed the patient's medical records. Lab Data I reviewed the patient's lab results. 06/13/24 18:29 06/13/24 22:26 Laboratory Results WBC 8.36 10^3/uL (3.29-11.43) 06/13/24 18: RBC 4.90 10^6/uL (3.85-5.65) 06/13/24 18: Hgb 14.00 g/dL (11.27-16.99) 06/13/24 18: Hct 41.9 % (36-47) 06/13/24 18: MCV 85.5 fl (85-98) 06/13/24 18: MCH 28.6 pg (27-33) 06/13/24 18: MCHC 33.4 g/dL (30-55) 06/13/24 18: RDW 15.7 % (12.1-15.1) H 06/13/24 18: Plt Count 173 10^3/cmm (157-399) 06/13/24 18: MPV 12.7 fL (7.4-10.4) H 06/13/24 18: Neut % (Auto) 55.3 % 06/13/24: Lymph % (Auto) 31.3 % 06/13/24: [place] % (Auto) 11.0 % 06/13/24: Eos % (Auto) 1.4 % 06/13/24: Baso % (Auto) 0.6 % 06/13/24: Neut # (Auto) 4.62 10^3/uL (1.8-7.7) 06/13/24 18: Lymph # (Auto) 2.6 10^3/uL (0.8-4.8) 06/13/24: [place] # (Auto) 0.9 10^3/uL (0.2-0.9) 06/13/24 18: Eos # (Auto) 0.1 10^3/uL (0.0-0.8) 06/13/24 18: Baso # (Auto) 0.1 10^3/uL (0.0-0.1) 06/13/24 18:29 Nucleated RBC % (auto) 0 % 06/13/24 18: Nucleated RBCs # 0.0 /100WBC 06/13/24 18:29 Sodium 143 mmol/L (136-145) 06/13/24 18: Potassium 3.3 mmol/L (3.5-5.1) L 06/13/24 22:26 Chloride 108 mmol/L (98-107) H 06/13/24 18:29 Carbon Dioxide 26 mmol/L (22-29) 06/13/24 18: Anion Gap 11.8 (5-19) 06/13/24 18: BUN 9 mg/dL (8-23) 06/13/24 18: Creatinine 0.6 mg/dL (0.5-0.9) 06/13/24 18: GFR Calculation 101.3 mL/min (90-130) 06/13/24 18: Glucose 116 mg/dL (65-115) H 06/13/24 18: Calculated Osmolality 296 mOsm/kg (285-295) H 06/13/24 18: Calcium 8.3 mg/dL (8.5-10.5) L 06/13/24 18: Magnesium 1.8 mg/dL (1.7-2.3) 06/13/24 18: Total Bilirubin 0.4 mg/dL (0.15-1.2) 06/13/24 18: AST 29 U/L (0-32) 06/13/24 18: ALT 25 U/L (0-33) 06/13/24 18: Alkaline Phosphatase 104 U/L (35-105) 06/13/24 18: Total Protein 5.9 g/dL (6.6-8.7) L 06/13/24 18: Albumin 3.2 g/dL (3.5-5.2) L 06/13/24 18: Globulin 2.7 g/dL (1.3-4.6) 06/13/24 18:29 No radiology studies performed this visit Discharge Plan Discharge Patient Disposition: Home Clinical Impression: Acute hypokalemia Condition: Stable Prescriptions: No Action prazosin 2 mg capsule 3 mg PO BEDTIME duloxetine [Cymbalta] 60 mg capsule,delayed release(DR/EC) 60 mg PO BID metoprolol tartrate 25 mg tablet 12.5 mg PO BID Qty: 60 0RF omeprazole 40 mg capsule,delayed release(DR/EC) 40 mg PO QAM albuterol sulfate [Ventolin HFA] 90 mcg/actuation HFA aerosol inhaler 2 puff inhalation Q6H PRN (Reason: shortness of breath or wheezing) Qty: 8.5 0RF diclofenac sodium 1 % gel 4 g topical QID Qty: 100 1RF Rx Instructions: apply to single knee, ankle, foot; for foot includes sole/toes/top of foot mupirocin 2 % ointment 1 applic topical BID 14 Days Qty: 22 0RF cyproheptadine 4 mg tablet 4 mg PO .qhs Mounjaro 7.5 mg/0.5 mL pen injector 7.5 mg SUBCUT ONCE (DME) CAM walker See Rx Instructions .Route .MEDSUPPLY Qty: 1 0RF Rx Instructions: As directed mupirocin 2 % ointment 1 applic topical TID Qty: 15 0RF Rx Instructions: apply to wound TID and as needed with dressing changes, cover with band-aid (DME) Dexcom G6 Veterinary Parasitologist Misc See Rx Instructions .Route Qty: 1 0RF Rx Instructions: Check BS 4 times a day. (DME) FreeStyle Nael 2 Sensor Kit See Rx Instructions .Route Qty: 6 3RF Rx Instructions: As directed isosorbide mononitrate 30 mg tablet extended release 24 hr See Rx Instructions PO BID Qty: 240 3RF Rx Instructions: 60mg in AM, 30 mg in PM orally twice a day; oxybutynin chloride 15 mg Tablet Extended Release 24hr 30 mg PO QAM amlodipine 5 mg Tablet 5 mg PO QAM alprazolam [Xanax] 0.5 mg Tablet 0.25 mg PO DAILY PRN (Reason: Anxiety) cyanocobalamin (vitamin B-12) 1,000 mcg/mL Solution 1,000 mcg IM Q30D buspirone 15 mg Tablet 15 mg PO BID pregabalin [Lyrica] 300 mg Capsule 300 mg PO BID cholecalciferol (vitamin D3) [Vitamin D3] 50 mcg (2,000 unit) Capsule 50 mcg PO QAM Lantus Solostar U-100 Insulin 100 unit/mL (3 mL) insulin pen 75 unit SUBCUT QAM Discharge Orders: Discharge ED (Routine); Ordered 06/13/24 Ordered By: Kesha Schilling Patient Instructions: Hypokalemia, Hypokalemia (ED) Activity Restrictions/Additional Instructions: As we discussed, I would like you to take 15 mL (20meq per 15ml solution) 3x daily over the next three days. This should total 60meq daily. After three days you may go back to your normal dose of 15ml twice daily or 40meq. [facility]. Coding Level of Care Code ED Tax Investigator for Stefany Morales
[2024-06-13] MEDS: potassium chloride oral liq 20 mEq/15 mL UDC PO (20:06)
[2024-06-13] MEDS: lidocaine 1% 5 ML in potassium chloride premix 100 ML 52.5 ML IV (20:06)
[2024-06-13 22:55] LABS: Potassium 3.3 mmol/L (3.5-5.1)
== END 2024-06-13 23:20 | disposition home or self-care (01) ==
PROVIDERS: Emergency Provider Physician Assistant
DX: E87.6 Hypokalemia (principal); I10 Essential (primary) hypertension; E11.40 Type 2 diabetes mellitus with diabetic neuropathy, unspecified; E78.5 Hyperlipidemia, unspecified; I25.10 Atherosclerotic heart disease of native coronary artery without angina pectoris
CPT/HCPCS: 36415; 80053; 83735; 84132; 85025; 93005; 99284; 99285; J3480

== ENCOUNTER → 2024-06-25 10:41 | Outpatient (BNVA) | payer OTHER, SELFPAY | PROVIDERS: PCP Nurse Practitioner; Visit Provider Podiatrist Foot & Ankle Surgery | DX: E11.8 Type 2 diabetes mellitus with unspecified complications (principal); E11.42 Type 2 diabetes mellitus with diabetic polyneuropathy; L97.512 Non-pressure chronic ulcer of other part of right foot with fat layer exposed; E11.621 Type 2 diabetes mellitus with foot ulcer | CPT/HCPCS: 11042 ==

== ENCOUNTER 2024-06-26 17:31 | Emergency (ER) | payer OTHER, SELFPAY ==
[2024-06-26 17:35] VITALS: BP 130/69; PULSE 100; RESP 20; TEMP 36.5; O2SAT 95
[2024-06-26 19:50] LABS: Covid PCR NEGATIVE (Negative); Influenza A POSITIVE (Negative); Influenza B NEGATIVE (Negative); Respiratory Syncytial Virus Ce NEGATIVE (Negative)
[2024-06-26] MEDS: oseltamivir phosphate 75 mg Capsule PO (20:58)
[2024-06-26] MEDS: dexamethasone 10 mg/mL INJ IM (20:59)
[2024-06-26 21:02] VITALS: BP 105/58; PULSE 100; RESP 18; O2SAT 96
--- NOTE | 2024-06-26 21:05 | W.ED.URI ---
HPI - URI/Sore Throat General: Chief Complaint: Upper Respiratory Infection Stated Complaint: fever/cough/congestion Time Seen by Provider: 06/26/24 18:16 Source: patient Mode of arrival: ambulatory Limitations: no limitations History of Present Illness: Patient is a 64-year-old female with extensive past medical history who reports the emergency department with upper respiratory symptoms beginning today. She notes fevers, congestion, rhinorrhea, chills, body aches, and a nonproductive cough. She reports positive sick contact exposure to the flu. Denies any significant shortness of breath, chest pain, or any other concerns at this time. MD elicited complaint: fever, cough, rhinorrhea and nasal congestion Onset (ago): hour(s) Consistency: constant Severity: moderate Able to tolerate fluids by mouth: Yes Context: sick contacts Associated symptoms: Reports chills, fever(s) and nasal congestion; Deny abdominal pain, chest pain, diarrhea, ear or mastoid pain, headache(s), nausea or vomiting Related Data Home Medications Medication Instructions Recorded Confirmed duloxetine 60 mg capsule,delayed 60 mg PO BID 06/07/21 06/25/24 release (Cymbalta) omeprazole 40 mg capsule,delayed 40 mg PO QAM 10/18/21 06/25/24 release prazosin 2 mg capsule 3 mg PO BEDTIME 10/18/21 06/25/24 alprazolam 0.5 mg tablet (Xanax) 0.25 mg PO DAILY PRN Anxiety 06/17/22 06/25/24 amlodipine 5 mg tablet 5 mg PO QAM 06/17/22 06/25/24 buspirone 15 mg tablet 15 mg PO BID 06/17/22 06/25/24 cyanocobalamin (vitamin B-12) 1,000 mcg IM Q30D 06/17/22 06/25/24 1,000 mcg/mL injection solution pregabalin 300 mg capsule (Lyrica) 300 mg PO BID 06/17/22 06/25/24 cyproheptadine 4 mg tablet 4 mg PO .qhs 08/11/23 06/25/24 Previous Rx's Medication Instructions Recorded blood-glucose meter,continuous #1 ea 05/17/21 (Dexcom G6 Ice Guard Tester) metoprolol tartrate 25 mg tablet 12.5 mg (1/2 x 25 mg) PO BID #60 07/14/21 tabs flash glucose sensor (FreeStyle #6 ea 04/19/22 Nael 2 Sensor kit) isosorbide mononitrate 30 mg See Rx Instructions PO BID #240 11/04/22 tablet,extended release 24 hr tabs albuterol sulfate 90 mcg/actuation 2 puff inhalation Q6H PRN 01/04/23 aerosol inhaler (Ventolin HFA) shortness of breath or wheezing #8.5 grams diclofenac sodium 1 % topical gel 4 g topical QID #100 grams 06/29/23 mupirocin 2 % topical ointment 1 applic topical BID 2 weeks #22 05/30/24 grams CAM walker #1 ea 06/13/24 mupirocin 2 % topical ointment 1 applic topical TID #15 grams 06/13/24 oseltamivir 75 mg capsule (Tamiflu) 75 mg PO BID 5 days #10 caps 06/26/24 Allergies Allergy/AdvReac Type Severity Reaction Status Date / Time ondansetron [From Zofran] Allergy Severe Dystonia Verified 06/26/24 17:40 bee venom protein (honey bee) Allergy anaphylaxis Verified 06/26/24 17:40 Influenza Virus Vaccines Allergy anaphylacti Verified 06/26/24 17:40 c mushroom Allergy anaphylaxis Verified 06/26/24 17:40 tetracycline Allergy Rash, Verified 06/26/24 17:40 shortness of breath trazodone Allergy Rash, Verified 06/26/24 17:40 trouble breathing Review of Systems General: Reports: 10 or more systems reviewed and unremarkable except in HPI and below Const: Reports: fever(s), chills and body aches; Denies: fatigue Eyes: Denies: change in vision ENMT: Reports: nasal discharge and nasal congestion; Denies: throat pain or ear or mastoid pain Card: Denies: chest pain, palpitations, swelling of feet/ankles or lightheadedness Resp: Reports: non-productive cough; Denies: dyspnea, productive cough or wheezing GI: Denies: abdominal pain, nausea, vomiting, diarrhea or constipation : Denies: flank pain, difficulty voiding, dysuria or urinary frequency Musc: Denies: neck pain, back pain or joint pain Skin/Breast: Denies: rash Neuro: Denies: headache(s), numbness in extremities or weakness in extremities PFSH ED PFSH: Medical History Tear of medial meniscus of left knee, current Renal failure Left knee pain No pertinent past medical history NegHx: thyroid, dvt/pe PCP: Tania Gastroparesis Prinzmetal angina Metatarsalgia of both feet Post traumatic stress disorder (PTSD) Hyperlipidemia Coronary 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 Takes Lyrica for the neuropathy. Does take hydrocodone as needed for pain. GERD (gastroesophageal reflux disease) Controlled on medication Anxiety and depression Diagnosed in the and controlled well on medication at this time managed by primary care provider nurse practitioner Nitin. Hypertension Diagnosed in 2018 managed by primary care provider nurse practitioner Nitin Surgical History H/O esophagogastroduodenoscopy (09/01/21) History of coronary angiogram 06/2021 and 05/2022 History of surgery neck lipoma removal- S/P appendectomy 1980-right lower quadrant incision, right ovary and appendix were removed. Hx of breast surgery ductectomy from the left breast done in her late 30s S/P tubal ligation 1982-immediately . History of back surgery Pain pump insertion, removed in 2014 S/P left knee arthroscopy Hx of oophorectomy 1980---right lower quadrant incision-right ovary and appendix were removed when she presented with pain to the emergency room S/P hysterectomy 1985--vaginal hysterectomy with left oophorectomy performed for a uterine mass she was told that there was no cancer but there were some abnormal cells and it was recommended that she have chemotherapy for 6 weeks however she did only 2 weeks and then did not finish the rest of treatment. S/P tonsillectomy and adenoidectomy As a child S/P cholecystectomy Laparoscopic procedure performed in 1992 Family History Mother Heart disease Hypertension Ovarian cancer Diagnosed at age 34 Suicide Thyroid disease Uterine cancer Diagnosed at age 34, unsure of origin Father Heart disease Thyroid disease Sister Thyroid disease Family/Other Thyroid disease [place], granddaughter Other Diabetes Social History Smoking and tobacco/nicotine status: never used tobacco/nicotine Quit status (tobacco/nicotine): has quit using Second hand smoke exposure: No Alcohol intake: former Substance/Drug Use: never Adopted: No Caregiver/support person: No Lives independently: Yes Housing: House Marital status: Number of children: 2 Highest education level completed: Associate Degree: Occupational, Technical, Vocational Program service: Yes Pets and animals: Yes Sexually active: Yes Do you think of yourself as: Straight/Heterosexual Gricel/Restorationism: Anabaptist Special gricel needs: No Agree to transfusion: No Physical Exam Const: COMMON NORMALS: no acute distress and no limitations GENERAL APPEARANCE: cooperative, comfortable and well developed ORIENTATION/CONSCIOUSNESS: Yes awake HENMT: COMMON NORMALS: normocephalic, atraumatic, hearing grossly normal bilaterally, moist oral mucous membranes and oropharynx normal HEAD & SCALP: normocephalic and atraumatic Eye: COMMON NORMALS: Equal, round and reactive pupils present, EOMs intact bilaterally and conjunctivae normal CONJUNCTIVA: Yes conjunctivae normal PUPIL: Yes Equal, round and reactive pupils present Neck/C-Spine: COMMON NORMALS: full ROM, supple and no JVD Resp: COMMON NORMALS: normal respiratory effort, No retractions, No use of accessory muscles and clear to auscultation bilaterally AUSCULTATION: clear to auscultation bilaterally Cardio: COMMON NORMALS: no JVD, regular rate, regular rhythm, No clicks present (Cardio), No murmurs present (Cardio) and No rub (Cardio) RATE: regular rate RHYTHM: regular rhythm GI: COMMON NORMALS: Normal to inspection, nondistended, normoactive bowel sounds present, Soft to palpation and non-tender AUSCULTATION: Yes normoactive bowel sounds PALPATION: Yes Soft to palpation RECTAL EXAM: deferred Extremity: COMMON NORMALS: normal to inspection, full ROM and capillary refill normal Skin: COMMON NORMALS: no rashes or lesions noted GENERAL SKIN EXAM: no rashes or lesions noted Course Vital Signs: Vital signs: Vital Signs Temperature 97.7 F 06/26/24 17:35 Pulse Rate 100 06/26/24 21:02 Respiratory Rate 18 06/26/24 21:02 Blood Pressure 105/58 06/26/24 21:02 Pulse Oximetry 96 06/26/24 21:02 Oxygen Delivery Me thod Room Air 06/26/24 21:02 MDM - URI/Sore Throat Medical Decision Making Patient presenting with upper respiratory symptoms. She was positive for flu A, she did note sick contact exposure. Her exam was unremarkable in terms of cardiopulmonary auscultation. Will get her started on Tamiflu as her symptoms just began today. Decadron given here in the ED, general return precautions given. She has a follow-up appointment already with the MD tomorrow. Lab Data Laboratory Results Coronavirus (PCR) Negative (Negative) 06/26/24 19:02 Influenza A (PCR) Positive (Negative) 06/26/24 19:02 Influenza Type B (PCR) Negative (Negative) 06/26/24 19:02 RSV (PCR) Negative (Negative) 06/26/24 19:02 No radiology studies performed this visit Discharge Plan Discharge Patient Disposition: Home Clinical Impression: Influenza Condition: Stable Prescriptions: New oseltamivir [Tamiflu] 75 mg capsule 75 mg PO BID 5 Days Qty: 10 0RF No Action prazosin 2 mg capsule 3 mg PO BEDTIME duloxetine [Cymbalta] 60 mg capsule,delayed release(DR/EC) 60 mg PO BID metoprolol tartrate 25 mg tablet 12.5 mg PO BID Qty: 60 0RF omeprazole 40 mg capsule,delayed release(DR/EC) 40 mg PO QAM albuterol sulfate [Ventolin HFA] 90 mcg/actuation HFA aerosol inhaler 2 puff inhalation Q6H PRN (Reason: shortness of breath or wheezing) Qty: 8.5 0RF diclofenac sodium 1 % gel 4 g topical QID Qty: 100 1RF Rx Instructions: apply to single knee, ankle, foot; for foot includes sole/toes/top of foot mupirocin 2 % ointment 1 applic topical BID 14 Days Qty: 22 0RF cyproheptadine 4 mg tablet 4 mg PO .qhs (DME) CAM walker See Rx Instructions .Route .MEDSUPPLY Qty: 1 0RF Rx Instructions: As directed mupirocin 2 % ointment 1 applic topical TID Qty: 15 0RF Rx Instructions: apply to wound TID and as needed with dressing changes, cover with band-aid (DME) Dexcom G6 Ice Guard Tester Misc See Rx Instructions .Route Qty: 1 0RF Rx Instructions: Check BS 4 times a day. (DME) FreeStyle Nael 2 Sensor Kit See Rx Instructions .Route Qty: 6 3RF Rx Instructions: As directed isosorbide mononitrate 30 mg tablet extended release 24 hr See Rx Instructions PO BID Qty: 240 3RF Rx Instructions: 60mg in AM, 30 mg in PM orally twice a day; amlodipine 5 mg Tablet 5 mg PO QAM alprazolam [Xanax] 0.5 mg Tablet 0.25 mg PO DAILY PRN (Reason: Anxiety) cyanocobalamin (vitamin B-12) 1,000 mcg/mL Solution 1,000 mcg IM Q30D buspirone 15 mg Tablet 15 mg PO BID pregabalin [Lyrica] 300 mg Capsule 300 mg PO BID Discharge Orders: Discharge ED (Routine); Ordered 06/26/24 Ordered By: Jeffy Newton Referrals: Anju Taveras FNP [Primary Care Provider] - Patient Instructions: Influenza (ED) Activity Restrictions/Additional Instructions: Tamiflu as prescribed. Tylenol for fevers or bodyaches. Please [facility]. Return with any new or worsening. Coding Level of Care Code ED Apprentice Electrician for Stefany Morales
[2024-06-26 21:11] VITALS: BP 105/58; PULSE 101; O2SAT 95
== END 2024-06-26 21:12 | disposition home or self-care (01) ==
PROVIDERS: Emergency Provider Physician Assistant; PCP Nurse Practitioner
DX: J10.1 Influenza due to other identified influenza virus with other respiratory manifestations (principal); Z11.52 Encounter for screening for COVID-19; I10 Essential (primary) hypertension; E11.40 Type 2 diabetes mellitus with diabetic neuropathy, unspecified; I25.10 Atherosclerotic heart disease of native coronary artery without angina pectoris
CPT/HCPCS: 87637; 96372; 99284; J1100

== ENCOUNTER 2024-07-05 08:37 | Emergency (ER) | payer OTHER, SELFPAY ==
[2024-07-05 08:39] VITALS: BP 108/52; PULSE 69; RESP 15; TEMP 36.7; O2SAT 95; BMI 39.9
--- NOTE | 2024-07-05 08:55 | CT_ITS ---
WS: [id number] CT CERVICAL SPINE HISTORY: Trauma TECHNIQUE: Contiguous 2.0 mm axial imaging performed through the entire cervical spine. Sagittal and coronal reformats also performed. All CT scans at [facility] use at least one of these dose optimization techniques: automated exposure control; mA and/or kV adjustment per patient size (includes targeted exams where dose is matched to clinical indication); or iterative reconstruction. DLP: 1095.67 mGy.cm COMPARISON: 10/30/2018 Mild scoliosis cervical vertebrae. No loss of disc space height. Marked facet joint arthritis. Osseous fusion between the LEFT C4-5 and C7-T1 facet joints. Additional fusion between the RIGHT C4-5 and C7-T1 facet joints. There is asymmetric widening of the RIGHT facet joint at C6-7. No associated fracture or displacement of the vertebral body. Lateral masses are aligned and the odontoid is intact. Small calcific density posterior to the C6 spinous process has been present since 2019. C2-C3: Mild facet arthritis. C3-C4: Osteophytic ridging and severe facet arthritis. Severe bilateral foraminal stenosis and osteophyte encroachment upon the cervical canal. C4-C5: Severe facet arthritis and bilateral foraminal stenosis. C5-C6: Moderate to severe facet arthritis and moderate foraminal stenosis. C6-C7: Moderate bilateral facet joint arthritis and foraminal stenosis. C7-T1: Normal. 2.6 x 2.1 cm RIGHT thyroid nodule. Lung apex is clear. No adenopathy. CT/CT cervical spin wo con* [id number] IMPRESSION: 1. No acute cervical spine fracture. 2. Mild asymmetric widening of the RIGHT C6-7 facet joint. New since 2019. The re was degenerative air in the facet joint on a prior CT from 2019 but no widen ing. Correlate for point tenderness. Ligamentous injury should be considered al though this also may be arthropathy. 3. Bilateral facet joint effusions.
--- NOTE | 2024-07-05 08:58 | XR_ITS ---
WS: [id number] Portable AP upright chest, 07/05/2024 Clinical Data: dyspnea/cough Comparison: Two-view chest, 07/20/2022 Findings: No nodules, masses or effusions are seen. The heart is normal. The pulmonary vascularity is not increased. No pneumonia or pneumothorax is seen. Monitor leads are on the chest wall. XR/XR chest 1V portable [id number] Impression: Negative chest.
--- NOTE | 2024-07-05 08:58 | CT_ITS ---
WS: [id number] CT CHEST ANGIOGRAPHY WITH REFORMATS HISTORY: Trauma TECHNIQUE: Contiguous axial images are obtained through the chest during arterial injection of intravenous contrast. Images are reconstructed to evaluate the pulmonary arteries. MIP imaging also reviewed. All CT scans at [facility] use at least one of these dose optimization techniques: automated exposure control; mA and/or kV adjustment per patient size (includes targeted exams where dose is matched to clinical indication); or iterative reconstruction. CONTRAST: Omnipaque 350; 100 mL IV. DLP: 482.35 mGy.cm COMPARISON: 08/06/2010 Good opacification of the pulmonary arteries. Nonocclusive but scattered pulmonary emboli are noted beginning in the mid to distal RIGHT and LEFT pulmonary arteries. No definite upper lobe pulmonary emboli. Segmental branch RIGHT middle lobe emboli. Scattered nonocclusive emboli proximal LEFT and RIGHT lower lobe pulmonary arteries. Nonocclusive emboli extend into the proximal segmental arteries RIGHT lower lobe. No RIGHT heart strain. There is mild LEFT heart enlargement. No pericardial or pleural effusions. Normal aorta. Lungs are clear. No pneumothorax. No mediastinal or hilar adenopathy. Small hiatal hernia. Mildly enlarged RIGHT thyroid lobe. Severe diffuse hepatic steatosis with hepatomegaly. The entire liver is not included. Spleen is normal size. Prior cholecystectomy. Prior gastric bypass. Visualized pancreas and adrenal glands are normal. Increase in thoracic kyphosis. CT/CT angio chest PE protcl [id number] IMPRESSION: 1. Bilateral, nonocclusive pulmonary emboli. Emboli noted in the proximal RIGH T and LEFT pulmonary arteries and extending into it subsegmental branch of the RIGHT middle lobe. 2. No pneumonia. 3. No RIGHT heart strain. 4. Diffuse, severe hepatic steatosis with hepatomegaly. 5. Prior gastric bypass. 6. Prior cholecystectomy.
[2024-07-05 09:03] LABS: Basophils # 0.1 10^3/uL (0.0-0.1); Basophils % 0.7 %; Eosinophils # 0.5 10^3/uL (0.0-0.8); Eosinophils % 6.2 %; Hematocrit 39.6 % (36-47); Lymphocytes # 3.8 10^3/uL (0.8-4.8); Lymphocytes % 45.6 %; Mean Corpuscular HGB Conc 33.3 g/dL (30-55); Mean Corpuscular Hemoglobin 28.8 pg (27-33); Mean Corpuscular Volume 86.3 fl (85-98); Mean Platelet Volume 12.8 fL (7.4-10.4); Monocytes # 0.8 10^3/uL (0.2-0.9); Monocytes % 9.5 %; Neutrophils # 3.06 10^3/uL (1.8-7.7); Neutrophils % 36.8 %; Nucleated Red Blood Cells % 0 %; Platelet Count 213 10^3/cmm (157-399); Red Blood Count 4.59 10^6/uL (3.85-5.65); Red Cell Distribution Width 15.8 % (12.1-15.1); White Blood Count 8.33 10^3/uL (3.29-11.43)
[2024-07-05 09:21] LABS: Alanine Aminotransferase 31 U/L (0-33); Albumin Level 2.7 g/dL (3.5-5.2); Alkaline Phosphatase 89 U/L (35-105); Anion Gap 14.7 (5-19); Aspartate Amino Transferase 51 U/L (0-32); Blood Urea Nitrogen 8 mg/dL (8-23); Calcium 7.8 mg/dL (8.5-10.5); Carbon Dioxide 25 mmol/L (22-29); Chloride 106 mmol/L (98-107); Creatinine Clr Calc Pharmacy 127.7294; Globulin 2.8 g/dL (1.3-4.6); Glomerular Filtration Rate 101.3 mL/min (90-130); Glucose 144 mg/dL (65-115); Magnesium 1.8 mg/dL (1.7-2.3); Osmolality Calculated 297 mOsm/kg (285-295); Sodium 143 mmol/L (136-145); Total Bilirubin 0.5 mg/dL (0.15-1.2); Total Protein 5.5 g/dL (6.6-8.7)
[2024-07-05 09:24] LABS: Potassium 2.7 mmol/L (3.5-5.1)
--- NOTE | 2024-07-05 09:48 | CT_ITS ---
WS: [id number] CT HEAD NONCONTRAST HISTORY: trauma TECHNIQUE: Contiguous axial imaging performed through the brain. Bone and soft tissue windows. Sagittal and coronal reformats reviewed. All CT scans at [facility] use at least one of these dose optimization techniques: automated exposure control; mA and/or kV adjustment per patient size (includes targeted exams where dose is matched to clinical indication); or iterative reconstruction. DLP: 1087.78 mGy.cm COMPARISON: 10/30/2018 No acute intracranial hemorrhage, midline shift or mass effect. No atrophy or prior infarcts or herniation. Ventricles: Normal size with no hydrocephalus. No inferior displacement of cerebellar tonsils. Paranasal sinuses: Small air-fluid level LEFT maxillary sinus. Mastoid air cells: Small amount of fluid in the RIGHT mastoid air cells. New since 2019. Calvarium and scalp: Skull is intact with no soft tissue edema or swelling. CT/CT head wo con* [id number] IMPRESSION: 1. No acute intracranial hemorrhage or edema. 2. No prior infarct. 3. Small amount of fluid in the RIGHT mastoid air cells. 4. Small air-fluid level LEFT maxillary sinus.
--- NOTE | 2024-07-05 09:49 | ECG_ITS ---
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1960 Requested By: John Coleman Order Number: [id number] Reading MD: ARIANA DUNCAN Measurements Intervals [place] Rate: 58 P: 39 MI: 174 QRS: -50 QRSD: 162 T: -5 QT: 490 QTc: 482 Interpretive Statements SINUS BRADYCARDIA RIGHT BUNDLE BRANCH BLOCK [120+ ms QRS DURATION, UPRIGHT V1, 40+ ms S IN I/aVL/V4/V5/V6] LEFT ANTERIOR FASCICULAR BLOCK [QRS AXIS <= -45, QR IN I, RS IN II] POSSIBLE ANTERIOR MYOCARDIAL INFARCTION , OF INDETERMINATE AGE [30 ms Q WAVE IN V3/V4, OR R < 0.2 mV IN V4] Compared to ECG 06/13/2024 17:36:02 Sinus rhythm no longer present Myocardial infarct finding still present Electronically Signed On 07-07-2024 21:05:04 [employer] by ARIANA DUNCAN [email or web address]
--- NOTE | 2024-07-05 10:10 | ECG_ITS ---
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1960 Requested By: John Coleman Order Number: [id number] Reading MD: ARIANA DUNCAN Measurements Intervals [place] Rate: 59 P: 16 NM: 158 QRS: -35 QRSD: 165 T: 5 QT: 490 QTc: 489 Interpretive Statements SINUS BRADYCARDIA LEFT AXIS DEVIATION [QRS AXIS < -30] RIGHT BUNDLE BRANCH BLOCK [120+ ms QRS DURATION, UPRIGHT V1, 40+ ms S IN I/aVL/V4/V5/V6] POSSIBLE ANTERIOR MYOCARDIAL INFARCTION , OF INDETERMINATE AGE [30 ms Q WAVE IN V3/V4, OR R < 0.2 mV IN V4] Compared to ECG 07/05/2024 09:52:05 Left-axis deviation now present Left anterior fascicular block no longer present Myocardial infarct finding still present Electronically Signed On 07-07-2024 21:13:17 [employer] by ARIANA DUNCAN [id number]
[2024-07-05 10:16] LABS: Troponin(5th) Baseline 16 ng/L (0-10)
--- NOTE | 2024-07-05 10:20 | USCV_ITS ---
Randi Kay Age: 64 Gender: F : 1960 Exam Date: 07/05/2024 11:08 Ordering Phys: John Ball DO Technologist: MIKI Exam Location: [facility] [place] Indication: Bilat PE HISTORY: . Pulmonary embolism. PROCEDURES: Venous duplex imaging was performed in bilateral lower extremities. The following venous structures were evaluated: common femoral vein, profunda vein, proximal portion of the greater saphenous vein, superficial femoral vein, and the popliteal vein. In addition, the posterior tibial and peroneal trunk were evaluated. Serial compression, augmentation maneuvers, and spectral Doppler flow evaluation were performed. FINDINGS: Normal 2-D Doppler and augmentation and compressibility throughout the lower extremity venous structures. Additional imaging through the proximal calf veins also reveals no thrombus. Limited evaluation of the greater saphenous vein is patent with no thrombus. CONCLUSIONS No DVT bilateral lower extremities. Dr. Laly Mckeon DO (Electronically Signed) Final Date: 05 July 2024 13:01 S
[2024-07-05] MEDS: potassium chloride oral liq 20 mEq/15 mL UDC 60 MEQ PO (10:28)
[2024-07-05 10:29] VITALS: BP 107/86; PULSE 60; RESP 14; O2SAT 98
--- NOTE | 2024-07-05 10:32 | PC.PHAR ---
Pt is [facility] med list 07/05/24 10:30am
[2024-07-05 10:36] LABS: Bilirubin Urine Negative (Negative); Blood Urine Negative (Negative); Glucose Urine UA Negative (Normal); Ketones Urine Negative (Negative); Leukocyte Esterase Urine Negative (Negative); Nitrate Urine Positive (Negative); Protein Urine Trace (Negative); Urine Appearance Clear (CLEAR); Urine Color Yellow (Yellow); pH Urine 6.5 (5-7)
[2024-07-05 10:41] LABS: Add Urine Microscopic? YES; Bacteria Urine Trace /hpf; Hyaline Casts Urine 0-4 /lpf; RBC Urine 0-2 /hpf (0-2); Squamous Epithelial Cell Urine 0-5 /hpf (0-5); WBC Urine 51-100 /hpf (0-5)
[2024-07-05] MEDS: enoxaparin 120 mg/0.8 mL Syringe 110 MG SUBCUT (10:51)
[2024-07-05 10:53] VITALS: BP 134/91; PULSE 65; RESP 16; O2SAT 99
[2024-07-05 10:57] LABS: Add Urine Culture? Yes; Specific Gravity, Urine 1.091 (1.005-1.030); UA Slide Review UA Slide Review Perf
--- NOTE | 2024-07-05 11:02 | PC.PHAR ---
Pt just finished a round of Tamiflu 75mg bidx5d filled 06/27/24
--- NOTE | 2024-07-05 11:07 | ED_ITS ---
HPI - Syncope 2 General: Chief Complaint: Syncope Stated Complaint: syncope Time Seen by Provider: 07/05/24 08:43 History of Present Illness: 62-year-old female presents emergency ro om after syncopal episode. She had the flu she gone back to work got up walked across the office and had a syncopal episode she collapsed completely. She is not having any chest pain it was very brief. She was slightly short of breath. No fever sweats chills. At this time she feels completely resolved and better. No other symptoms no recent medication changes. No history of heart disease. Associated symptoms: Deny abdominal pain, chest pain or fever(s) Related Data Home Medications ?Medication ?Instructions ?Recorded ?Confirmed duloxetine 60 mg capsule,delayed 60 mg PO BID 06/07/21 07/05/24 release (Cymbalta) omeprazole 40 mg capsule,delayed 40 mg PO QAM 10/18/21 07/05/24 release prazosin 2 mg capsule 8 mg PO BEDTIME 10/18/2112/20 alprazolam 0.5 mg tablet (Xanax) 0.25 mg PO DAILY PRN Anxiety 06/17/22 07/05/24 amlodipine 5 mg tablet 5 mg PO QAM 06/17/22 5 buspirone 15 mg tablet 30 mg PO BID 06/17/22 cyanocobalamin (vitamin B-12) 1,000 mcg IM Q30D 07/05/24 1,000 mcg/mL injection solution pregabalin 300 mg capsule (Lyrica) 300 mg PO BID 06/1707/05/24 cyproheptadine 4 mg tablet 4 mg PO BEDTIME 08/11/23 [id number] 45 mg-folic 1 cap PO DAILY 12/2007/05/24 acid 800 mcg-vit K 120 mcg capsule (Bariatric Multivitamins) potassium chloride 20 mEq/15 mL 40 meq PO TID 07/05/24 07/05/24 oral liquid Previous Rx's ?Medication ?Instructions ?Recorded blood-glucose meter,continuous #1 ea 05/17/21 ([email or web address] G6 Pricing Director) metoprolol tartrate 25 mg tablet 12.5 mg (1/2 x 25 mg) PO BID #60 07/14/21 tabs flash glucose sensor (FreeStyle #6 ea 04/19/22 Nael 2 Sensor kit) isosorbide mononitrate 30 mg See Rx Instructions PO BI D #240 11/04/22 tablet,extended release 24 hr tabs albuterol sulfate 90 mcg/actuation 2 puff inhalation Q 6H PRN 01/04/23 aerosol inhaler (Ventolin HFA) shortness of breath or wheezing #8.5 grams diclofenac sodium 1 % topical gel 4 g topical QID #100 grams 06/29/23 mupirocin 2 % topical ointment 1 applic topical BID 2 weeks #22 05/30/24 grams CAM walker #1 ea 06/13/24 apixaban 5 mg (74 tabs) tablets in See Rx Instructions PO .COMPLEX 07/05/24 a dose pack (Eliquis DVT-PE Treat #74 ea 30D Start) ciprofloxacin HCl 250 mg tablet 250 mg PO BID #14 tabs 07/05/24 (Cipro) Allergies Allergy/AdvReac Type Severity Reaction Status Date / Time ondansetron (From Zofran) Allergy Severe Dystonia Verified 07/05/24 08:51 bee venom protein (honey bee) Allergy anaphylaxis Verified 07/05/24 08:51 Influenza Virus Vaccines Allergy anaphylacti Verified 07/05/24 08:51 c mushroom Allergy anaphylaxis Verified 07/05/24 08:51 tetracycline Allergy Rash, Verified 07/05/24 08:51 shortness of breath trazodone Allergy Rash, Verified 07/05/24 08:51 trouble breathing Review of Systems 2 Const: Denies: fever(s) or chills Card: Denies: chest pain Resp: Denies: dyspnea GI: Denies: abdominal pain : Denies: dysuria, urinary frequency or urinary urgency Musc: Denies: neck pain or back pain Skin/Breast: Denies: rash PFSH ED 2 PFSH: Medical History Tear of medial meniscus of left knee, current Renal failure Left knee pain No pertinent past medical history NegHx: thyroid, dvt/pe PCP: Tania Gastroparesis Prinzmetal angina Metatarsalgia of both feet Post traumatic stress disorder (PTSD) Hyperlipidemia Coronary 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 Takes Lyrica for the neuropathy. Does take hydrocodone as needed for pain. GERD (gastroesophageal reflux disease) Controlled on medication Anxiety and depression Diagnosed in the and controlled well on medication at this time managed by primary care provider nurse jami Taveras. Hypertension Diagnosed in 2018 managed by primary care provider nurse jami Taveras Surgical History H/O esophagogastroduodenoscopy (09/01/21) History of coronary angiogram 06/2021 and 05/2022 History of surgery neck lipoma removal- S/P appendectomy 1980-right lower quadrant incision, right ovary and appendix were removed. Hx of breast surgery ductectomy from the left breast done in her late 30s S/P tubal ligation 1982-immediately . History of back surgery Pain pump insertion, removed in 2014 S/P left knee arthroscopy Hx of oophorectomy 1980---right lower quadrant incision-right ovary and appendix were removed when she presented with pain to the emergency room S/P hysterectomy 1985--vaginal hysterectomy with left oophorectomy performed for a uterine mass she was told that there was no cancer but there were some abnormal cells and it was recommended that she have chemotherapy for 6 weeks however she did only 2 weeks and then did not finish the rest of treatment. S/P tonsillectomy and adenoidectomy As a child S/P cholecystectomy Laparoscopic procedure performed in 1992 Family History Mother Heart disease Hypertension Ovarian cancer Diagnosed at age 34 Suicide Thyroid disease Uterine cancer Diagnosed at age 34, unsure of origin Father Heart disease Thyroid disease Sister Thyroid disease Family/Other Thyroid disease [place], granddaughter Other Diabetes Social History Smoking and tobacco/nicotine status: never used tobacco/nicotine Quit status (tobacco/nicotine): has quit using Second hand smoke exposure: No Alcohol intake: former Substance/Drug Use: never Adopted: No Caregiver/support person: No Lives independently: Yes Housing: House Marital status: Number of children: 2 Highest education level completed: Associate Degree: Occupational, Technical, Vocational Program service: Yes Pets and animals: Yes Sexually active: Yes Do you think of yourself as: Straight/Heterosexual Gricel/Congregation: [employer] Special gricel needs: No Agree to transfusion: No Physical Exam 2 Const: COMMON NORMALS: no acute distress GENERAL APPEARANCE: cooperative and comfortable ORIENTATION/CONSCIOUSNESS: Yes awake, Yes oriented to person, Yes oriented to place and Yes oriented to time HENMT: COMMON NORMALS: normocephalic, atraumatic and hearing grossly normal bilaterally HEAD & SCALP: normocephalic and atraumatic Resp: COMMON NORMALS: normal respiratory effort, No retractions, No use of accessory muscles and clear to auscultation bilaterally AUSCULTATION: clear to auscultation bilaterally Cardio: COMMON NORMALS: regular rate, regular rhythm and No murmurs present (Cardio) RATE: regular rate RHYTHM: regular rhythm GI: COMMON NORMALS: Soft to palpation and No hepatosplenomegaly present A USCULTATION: Yes normoactive bowel sounds PALPATION: Yes Soft to palpation, No Tenderness to palpation present (GI), No Guarding due to palpation present (GI) and Yes No hepatosplenomegaly present Extremity: COMMON NORMALS: normal to inspection, capillary refill normal, no clubbing, cyanosis or edema, no calf tenderness and no pedal edema Neuro: SENSORIUM/ORIENTATION: Yes oriented to person, Yes oriented to place and Yes oriented to time Skin: COMMON NORMALS: no rashes or lesions noted GENERAL SKIN EXAM: no rashes or lesions noted Course 2 Vital Signs: Vital signs: Vital Signs Temperature 98.0 F 07/05/24 08:39 Pulse Rate 83 07/05/24 13:42 Respiratory Rate 17 07/05/24 13:17 Blood Pressure 110/70 07/05/24 13:42 Pulse Oximetry 98 07/05/24 13:42 Oxygen Delivery Me thod Room Air 07/05/24 13:17 MDM - Syncope Medical Decision Making EKG did not show any acute changes there is no right heart strain her troponins trended negative and were not significantly elevated. She has no signs of any decompensated heart failure. CTA of the chest showed bilateral pulmonary embolism. There is no sign of right heart strain. Venous duplex lower extremities negative. She has an incidental finding of a cystitis as well. Will treat this cystitis discharge her home on anticoagulant. Stressed importance of continuing the anticoagulant until patient has been told by her primary care doctor to stop. Also noted that she was hypokalemic her potassium was rechecked after supplementation did improve. She is already taking rather high dose frequent potassium supplement. Encouraged her to continue to do this continue to work with her primary care doctor. Given the fact that she was replenished easily in the emergency room she is absorbing. She is already taking liquid. Likely is due to her history of prior bariatric surgery. Return if has any further problems. Lab Data 07/05/24 08:20 07/05/24 12:56 Radiology Impressions Cervical Spine CT 07/05/24 08:55 IMPRESSION: 1. No acute cervical spine fracture. 2. Mild asymmetric widening of the RIGHT C6-7 facet joint. New since 2019. There was degenerative air in the facet joint on a prior CT from 2019 but no widening. Correlate for point tenderness. Ligamentous injury should be considered although this also may be arthropathy. 3. Bilateral facet joint effusions. Chest CTA 07/05/24 08:58 IMPRESSION: 1. Bilateral, nonocclusive pulmonary emboli. Emboli noted in the proximal RIGHT and LEFT pulmonary arteries and extending into it subsegmental branch of the RIGHT middle lobe. 2. No pneumonia. 3. No RIGHT heart strain. 4. Diffuse, severe hepatic steatosis with hepatomegaly. 5. Prior gastric bypass. 6. Prior cholecystectomy. Chest X-Ray 07/05/24 08:58 Impression: Negative chest. Head CT 07/05/24 09:48 IMPRESSION: 1. No acute intracranial hemorrhage or edema. 2. No prior infarct. 3. Small amount of fluid in the RIGHT mastoid air cells. 4. Small air-fluid level LEFT maxillary sinus. Laboratory Results WBC 8.33 10^3/uL (3.29-11.43) 07/05/24 08:20 RBC 4.59 10^6/uL (3.85-5.65) 07/05/24 08:20 Hgb 13.20 g/dL (11.27-16.99) 07/05/24 08:20 Hct 39.6 % (36-47) 07/05/24 08:20 MCV 86.3 fl (85-98) 07/05/24 08:20 MCH 28.8 pg (27-33) 07/05/24 08:20 MCHC 33.3 g/dL (30-55) 07/05/24 08:20 RDW 15.8 % (12.1-15.1) H 07/05/24 08:20 Plt Count 213 10^3/cmm (157-399) 07/05/24 08:20 MPV 12.8 fL (7.4-10.4) H 07/05/24 08:20 Neut % (Auto) 36.8 % 07/05/24 08:20 Lymph % (Auto) 45.6 % 07/05/24 08:20 [place] % (Auto) 9.5 % 07/05/24 08:20 Eos % (Auto) 6.2 % 07/05/24 08:20 Baso % (Auto) 0.7 % 07/05/24 08:20 Neut # (Auto) 3.06 10^3/uL (1.8-7.7) 07/05/24 08:20 Lymph # (Auto) 3.8 10^3/uL (0.8-4.8) 07/05/24 08:20 [place] # (Auto) 0.8 10^3/uL (0.2-0.9) 07/05/24 08:20 Eos # (Auto) 0.5 10^3/uL (0.0-0.8) 07/05/24 08:20 Baso # (Auto) 0.1 10^3/uL (0.0-0.1) 07/05/24 08:20 Nucleated RBC % (auto) 0 % 07/05/24 08:20 Nucleated RBCs # 0.0 /100WBC 07/05/24 08:20 Sodium 143 mmol/L (136-145) 07/05/24 08:20 Potassium 3.5 mmol/L (3.5-5.1) 07/05/24 12:56 Chloride 106 mmol/L (98-107) 07/05/24 08:20 Carbon Dioxide 25 mmol/L (22-29) 07/05/24 08:20 Anion Gap 14.7 (5-19) 07/05/24 08:20 BUN 8 mg/dL (8-23) 07/05/24 08:20 Creatinine 0.6 mg/dL (0.5-0.9) 07/05/24 08:20 GFR Calculation 101.3 mL/min (90-130) 07/05/24 08:20 Glucose 144 mg/dL (65-115) H 07/05/24 08:20 Calculated Osmolality 297 mOsm/kg (285-295) H 07/05/24 08:20 Calcium 7.8 mg/dL (8.5-10.5) L 07/05/24 08:20 Magnesium 1.8 mg/dL (1.7-2.3) 07/05/24 08:20 Total Bilirubin 0.5 mg/dL (0.15-1.2) 07/05/24 08:20 AST 51 U/L (0-32) H 07/05/24 08:20 ALT 31 U/L (0-33) 07/05/24 08:20 Alkaline Phosphatase 89 U/L (35-105) 07/05/24 08:20 Troponin T Baseline 16 ng/L (0-10) H 07/05/24 08:20 Troponin T 120 Minute 11.75 ng/L (0-10) H 07/05/24 10:43 Delta Troponin T -4.25 ABS# (0-10) L 07/05/24 10:43 Total Protein 5.5 g/dL (6.6-8.7) L 07/05/24 08:20 Albumin 2.7 g/dL (3.5-5.2) L 07/05/24 08:20 Globulin 2.8 g/dL (1.3-4.6) 07/05/24 08:20 Urine Color Yellow (Yellow) 07/05/24 10:20 Urine Appearance Clear (CLEAR) 07/05/24 10:20 Urine pH 6.5 (5-7) 07/05/24 10:20 Ur Specific [place] 1.091 (1.005-1.030) H 07/05/24 10:20 Urine Protein Trace (Negative) A 07/05/24 10:20 Urine Glucose (UA) Negative (Normal) 07/05/24 10:20 Urine Ketones Negative (Negative) 07/05/24 10:20 Urine Blood Negative (Negative) 07/05/24 10:20 Urine Nitrate Positive (Negative) A 07/05/24 10:20 Urine Bilirubin Negative (Negative) 07/05/24 10:20 Urine Urobilinogen 1.0 mg/dL (Negative) 07/05/24 10:20 Ur Leukocyte Esterase Negative (Negative) 07/05/24 10:20 Urine RBC 0-2 /hpf (0-2) 07/05/24 10:20 Urine WBC 51-100 /hpf (0-5) H 07/05/24 10:20 Ur Squamous Epith Cells 0-5 /hpf (0-5) 07/05/24 10:20 Amorphous Sediment Not Reportable 07/05/24 10:20 Urine Bacteria Trace /hpf (NONE) 07/05/24 10:20 Hyaline Casts 0-4 /lpf H 07/05/24 10:20 All radiology interpretation(s) finalized by discharge Discharge Plan Discharge Patient Disposition: Home Clinical Impression: Pulmonary embolism, Hypokalemia, Cystitis, Syncope Condition: Stable Prescriptions: New EliMark One DVT-PE Treat 30D Start 5 mg (74 tabs) tablets,dose pack See Rx Instructions .ROUTE .COMPLEX Qty: 74 0RF Rx Instructions: orally per package directions ciprofloxacin HCl [Cipro] 250 mg tablet 250 mg PO BID Qty: 14 0RF No Action prazosin 2 mg capsule 8 mg PO BEDTIME duloxetine [Cymbalta] 60 mg capsule,delayed release(DR/EC) 60 mg PO BID metoprolol tartrate 25 mg tablet 12.5 mg PO BID Qty: 60 0RF omeprazole 40 mg capsule,delayed release(DR/EC) 40 mg PO QAM albuterol sulfate [Ventolin HFA] 90 mcg/actuation HFA aerosol inhaler 2 puff inhalation Q6H PRN (Reason: shortness of breath or wheezing) Qty: 8.5 0RF diclofenac sodium 1 % gel 4 g topical QID Qty: 100 1RF Rx Instructions: apply to single knee, ankle, foot; for foot includes sole/toes/top of foot mupirocin 2 % ointment 1 applic topical BID 14 Days Qty: 22 0RF cyproheptadine 4 mg tablet 4 mg PO BEDTIME (DME) CAM walker See Rx Instructions .Route .MEDSUPPLY Qty: 1 0RF Rx Instructions: As directed (DME) Dexcom G6 Pricing Director Misc See Rx Instructions .Route Qty: 1 0RF Rx Instructions: Check BS 4 times a day. (DME) FreeStyle Nael 2 Sensor Kit See Rx Instructions .Route Qty: 6 3RF Rx Instructions: As directed isosorbide mononitrate 30 mg tablet extended release 24 hr See Rx Instructions PO BID Qty: 240 3RF Rx Instructions: Take 60mg by mouth in the morning and 30 mg in the evening. amlodipine 5 mg Tablet 5 mg PO QAM alprazolam [Xanax] 0.5 mg Tablet 0.25 mg PO DAILY PRN (Reason: Anxiety) cyanocobalamin (vitamin B-12) 1,000 mcg/mL Solution 1,000 mcg IM Q30D buspirone 15 mg Tablet 30 mg PO BID pregabalin [Lyrica] 300 mg Capsule 300 mg PO BID potassium chloride 20 mEq/15 mL Liquid 40 meq PO TID Rx Instructions: Mix with 6 oz water/juice Bariatric Multivitamins 45 mg iron- 800 mcg-120 mcg Capsule 1 cap PO DAILY Discharge Orders: Discharge ED (Routine); Ordered 07/05/24 Ordered By: John Ball Referrals: Anju Taveras FNP [Primary Care Provider] - Discharge Diet: Usual diet Discharge Activity: Increase activity as tolerated Patient Instructions: Pulmonary Embolism (ED), Urinary Tract Infection in Women (ED), Opioid Safety, Pain Management Activity Restrictions/Additional Instructions: Thank you for choosing [facility] for your healthcare needs today. It is very important that you follow up as instructed or that you return to the Emergency Department should you have concerns or if your condition changes or worsens in any way. You were seen in the emergency room after an syncopal episode. CT shows you have bilateral pulmonary emboli. There is no evidence of strain on the heart. Recommend you start Eliquis you are given Lovenox here recommend the Eliquis starter pack and follow the instructions in the pack. Is very important that you continue taking Eliquis until your doctor specifically tells you you are able to stop. In the course of the workup today we also noted your potassium was low which was supplemented on recheck your potassium was normal continue the current potassium supplement follow-up with your doctor regarding this. Finally you are also noted to have a bladder infection recommend Cipro 250 mg 1 pill twice a day for 7 days. 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
[2024-07-05 11:18] LABS: Troponin 5 2HR 11.75 ng/L (0-10)
[2024-07-05 11:20] LABS: Troponin 5 2HR Delta -4.25 ABS# (0-10)
--- NOTE | 2024-07-05 11:47 | PC.NURSE ---
provided pt with water per Dr. Ball's approval.
[2024-07-05 12:18] VITALS: BP 109/68; PULSE 63; O2SAT 98
[2024-07-05 13:17] VITALS: PULSE 60; RESP 17; O2SAT 96
[2024-07-05 13:18] LABS: Potassium 3.5 mmol/L (3.5-5.1)
[2024-07-05 13:42] VITALS: BP 110/70; PULSE 83; O2SAT 98
== END 2024-07-05 13:48 | disposition home or self-care (01) ==
PROVIDERS: Emergency Provider Family Medicine; PCP Nurse Practitioner
DX: I26.99 Other pulmonary embolism without acute cor pulmonale (principal); E87.6 Hypokalemia; N30.90 Cystitis, unspecified without hematuria; R55 Syncope and collapse; Z79.01 Long term (current) use of anticoagulants; E11.40 Type 2 diabetes mellitus with diabetic neuropathy, unspecified; I10 Essential (primary) hypertension; E78.5 Hyperlipidemia, unspecified; I25.10 Atherosclerotic heart disease of native coronary artery without angina pectoris
CPT/HCPCS: 36415; 70450; 71045; 71275; 72125; 80053; 81001; 83735; 84132; 84484; 85025; 87077; 87086; 87186; 93005; 93970; 96372; 99285; J1650

== ENCOUNTER → 2024-07-15 10:04 | Outpatient (BNVA) | payer OTHER, SELFPAY | PROVIDERS: PCP Nurse Practitioner; Visit Provider Podiatrist Foot & Ankle Surgery | DX: E11.621 Type 2 diabetes mellitus with foot ulcer (principal); L97.512 Non-pressure chronic ulcer of other part of right foot with fat layer exposed; E11.8 Type 2 diabetes mellitus with unspecified complications; E11.42 Type 2 diabetes mellitus with diabetic polyneuropathy | CPT/HCPCS: 11042 ==

== ENCOUNTER 2024-07-18 11:46 | Emergency (ER) | payer OTHER, SELFPAY ==
[2024-07-18 11:59] VITALS: BP 129/72; PULSE 56; RESP 18; TEMP 36.4; O2SAT 99; BMI 40.2
--- NOTE | 2024-07-18 12:09 | W.ED.SYNCOPE ---
HPI - Syncope General: Chief Complaint: Syncope Stated Complaint: sent from [facility] needs fluids Time Seen by Provider: 07/18/24 12:04 History of Present Illness: 64-year-old female with a history of morbid obesity, recent gastric bypass surgery, coronary artery disease, diabetes and hyperlipidemia who presents emergency room from the [employer] where she works with a near syncopal episode. Her PCP who works here at the [employer] felt she might be dehydrated and sent her to the emergency room. She says she tries stay hydrated but after the gastric bypass she has been having trouble. She says she also thinks her potassium may be a little bit low. No abdominal pain. No chest pain. No altered mental status. No fevers. No cough. Related Data Home Medications ?Medication ?Instructions ?Recorded ?Confirmed duloxetine 60 mg capsule,delayed 60 mg PO BID 06/07/21 07/18/24 release (Cymbalta) prazosin 2 mg capsule 8 mg PO BEDTIME 10/18/21 07/18/24 alprazolam 0.5 mg tablet (Xanax) 0.25 mg PO DAILY PRN Anxiety 06/17/22 07/18/24 amlodipine 5 mg tablet 5 mg PO QAM 06/17/22 07/18/24 buspirone 15 mg tablet 30 mg PO BID 06/17/22 07/18/24 cyanocobalamin (vitamin B-12) 1,000 mcg IM Q30D 06/17/22 07/18/24 1,000 mcg/mL injection solution pregabalin 300 mg capsule (Lyrica) 300 mg PO BID 06/17/22 07/18/24 cyproheptadine 4 mg tablet 4 mg PO BEDTIME 08/11/23 07/18/24 lgdttonp-[id number]-ojgs 45 mg-folic 1 cap PO DAILY 07/05/24 07/18/24 acid 800 mcg-vit K 120 mcg capsule (Bariatric Multivitamins) potassium chloride 20 mEq/15 mL 40 meq PO TID 07/05/24 07/18/24 oral liquid apixaban 5 mg tablet (Eliquis) 5 mg PO BID 07/18/24 07/18/24 isosorbide mononitrate 30 mg 30 mg PO BID 07/18/24 07/18/24 tablet,extended release 24 hr omeprazole 20 mg capsule,delayed 20 mg PO BID 07/18/24 07/18/24 release oxybutynin chloride 5 mg tablet 10 mg PO TID 07/18/24 07/18/24 Previous Rx's ?Medication ?Instructions ?Recorded blood-glucose meter,continuous #1 ea 05/17/21 (Dexcom G6 Aquatics Manager) metoprolol tartrate 25 mg tablet 12.5 mg (1/2 x 25 mg) PO BID #60 07/14/21 tabs flash glucose sensor (FreeStyle #6 ea 04/19/22 Nael 2 Sensor kit) albuterol sulfate 90 mcg/actuation 2 puff inhalation Q6H PRN 01/04/23 aerosol inhaler (Ventolin HFA) shortness of breath or wheezing #8.5 grams diclofenac sodium 1 % topical gel 4 g topical QID #100 grams 06/29/23 mupirocin 2 % topical ointment 1 applic topical BID 2 weeks #22 05/30/24 grams CAM walker #1 ea 06/13/24 apixaban 5 mg (74 tabs) tablets in See Rx Instructions PO .COMPLEX 07/05/24 a dose pack (Vobile DVT-PE Treat #74 ea 30D Start) cephalexin 500 mg capsule 500 mg PO BID 5 days #10 caps 07/18/24 Allergies Allergy/AdvReac Type Severity Reaction Status Date / Time ondansetron (From Zofran) Allergy Severe Dystonia Verified 07/15/24 10:10 bee venom protein (honey bee) Allergy anaphylaxis Verified 07/15/24 10:10 Influenza Virus Vaccines Allergy anaphylacti Verified 07/15/24 10:10 c mushroom Allergy anaphylaxis Verified 07/15/24 10:10 tetracycline Allergy Rash, Verified 07/15/24 10:10 shortness of breath trazodone Allergy Rash, Verified 07/15/24 10:10 trouble breathing Review of Systems Narrative: Constitutional symptoms: Negative except as documented in HPI. Skin symptoms: Negative except as documented in HPI. Eye symptoms: Negative except as documented in HPI. ENMT symptoms: Negative except as documented in HPI. Respiratory symptoms: Negative except as documented in HPI. Cardiovascular symptoms: Negative except as documented in HPI. Gastrointestinal symptoms: Negative except as documented in HPI. Genitourinary symptoms: Negative except as documented in HPI. Musculoskeletal symptoms: Negative except as documented in HPI. Neurologic symptoms: Negative except as documented in HPI. Psychiatric symptoms: Negative except as documented in HPI. Endocrine symptoms: Negative except as documented in HPI. PFSH ED PFSH: Medical History Tear of medial meniscus of left knee, current Renal failure Left knee pain No pertinent past medical history NegHx: thyroid, dvt/pe PCP: Tania Gastroparesis Prinzmetal angina Metatarsalgia of both feet Post traumatic stress disorder (PTSD) Hyperlipidemia Coronary 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 Takes Lyrica for the neuropathy. Does take hydrocodone as needed for pain. GERD (gastroesophageal reflux disease) Controlled on medication Anxiety and depression Diagnosed in the and controlled well on medication at this time managed by primary care provider nurse practitioner Nitin. Hypertension Diagnosed in 2017 managed by primary care provider nurse practitioner Nitin Surgical History H/O esophagogastroduodenoscopy (09/01/21) History of coronary angiogram 06/2021 and 05/2022 History of surgery neck lipoma removal- S/P appendectomy 1980-right lower quadrant incision, right ovary and appendix were removed. Hx of breast surgery ductectomy from the left breast done in her late 30s S/P tubal ligation 1982-immediately . History of back surgery Pain pump insertion, removed in 2014 S/P left knee arthroscopy Hx of oophorectomy 1980---right lower quadrant incision-right ovary and appendix were removed when she presented with pain to the emergency room S/P hysterectomy 1985--vaginal hysterectomy with left oophorectomy performed for a uterine mass she was told that there was no cancer but there were some abnormal cells and it was recommended that she have chemotherapy for 6 weeks however she did only 2 weeks and then did not finish the rest of treatment. S/P tonsillectomy and adenoidectomy As a child S/P cholecystectomy Laparoscopic procedure performed in 1992 Family History Mother Heart disease Hypertension Ovarian cancer Diagnosed at age 34 Suicide Thyroid disease Uterine cancer Diagnosed at age 34, unsure of origin Father Heart disease Thyroid disease Sister Thyroid disease Family/Other Thyroid disease [place], granddaughter Other Diabetes Social History (Reviewed 07/15/24 @ 10:16 by Loulou Higginbotham Smoking and tobacco/nicotine status: never used tobacco/nicotine Quit status (tobacco/nicotine): has quit using Second hand smoke exposure: No Alcohol intake: former Substance/Drug Use: never Adopted: No Caregiver/support person: No Lives independently: Yes Housing: House Marital status: Number of children: 2 Highest education level completed: Associate Degree: Occupational, Technical, Vocational Program service: Yes Pets and animals: Yes Sexually active: Yes Do you think of yourself as: Straight/Heterosexual Gricel/Sabianism: Adventism Special gricel needs: No Agree to transfusion: No Physical Exam Narrative: EXAM NARRATIVE: General: Alert, no acute distress. Skin: Warm, dry. Head: Normocephalic, atraumatic. Neck: Supple, trachea midline. Eye: Extraocular movements are intact. Ears, nose, mouth and throat: Tacky oral mucosa Cardiovascular: Regular, Normal peripheral perfusion. Respiratory: Lungs are clear to auscultation, respirations are non-labored, breath sounds are equal, Symmetrical chest wall expansion. Gastrointestinal: Soft, Nontender, Non distended Musculoskeletal: Normal ROM, no deformity. Neurological: Alert and oriented, No focal neurological deficit observed. Psychiatric: Cooperative, appropriate mood & affect. Course Vital Signs: Vital signs: Vital Signs Temperature 97.6 F 07/18/24 11:59 Pulse Rate 44 L 07/18/24 13:45 Respiratory Rate 18 07/18/24 11:59 Blood Pressure 107/60 07/18/24 13:45 Pulse Oximetry 97 07/18/24 13:45 Oxygen Delivery Me thod Room Air 07/18/24 13:45 MDM - Syncope Medical Decision Making Medical decision making: Differential diagnosis including but not limited to and based on the above HPI, review of systems and physical exam in this patient with syncope: Vasovagal, orthostatics hypotension, cardiac dysrhythmia, myocardial infarction, infection and hypotension, Orders placed to evaluate differential diagnosis based on the above differential, HPI and physical exam EKG: Time 1214. Rate 56. Sinus bradycardia. No ST-T changes, no ectopy, right bundle branch block, This was reviewed and interpreted by myself the ER physician. Time 1218. Rate 56. Repeat EKG. Time 1404. Rate 53. Sinus bradycardia. No ST-T changes, no ectopy, right bundle branch block, This was reviewed and interpreted by myself the ER physician. At 1408. No significant changes from previous EKG. Lab Review: Laboratory results were reviewed and interpreted by myself the emergency room physician. No leukocytosis. No anemia. No renal failure. Potassium is mildly low at 3.4. Being replaced with liquid potassium. Urinalysis shows 1+ bacteria and 0-[address] her on a short course of antibiotics for possible UTI. I reviewed the patient's medical record. Reexamination: Patient remained stable. No increased work of breathing. No altered mental status. No focal motor deficits. Assessment and plan: Near syncope Dehydration Hypokalemia UTI ? IV fluids and p.o. potassium in the emergency room. - Discharged home - Discussed plan with patient. Answered any questions. - Evaluation and treatment of this problem were appropriate in the emergency setting. Lab Data 07/18/24 12:25 07/18/24 12:25 Laboratory Results WBC 8.20 10^3/uL (3.29-11.43) 07/18/24 12: RBC 4.45 10^6/uL (3.85-5.65) 07/18/24 12:25 Hgb 12.90 g/dL (11.27-16.99) 07/18/24 12:25 Hct 39.4 % (36-47) 07/18/24 12:25 MCV 88.5 fl (85-98) 07/18/24 12:25 MCH 29.0 pg (27-33) 07/18/24 12:25 MCHC 32.7 g/dL (30-55) 07/18/24 12:25 RDW 17.2 % (12.1-15.1) H 07/18/24 12:25 Plt Count 172 10^3/cmm (157-399) 07/18/24 12:25 MPV 12.4 fL (7.4-10.4) H 07/18/24 12:25 Neut % (Auto) 50.0 % 07/18/24 12:25 Lymph % (Auto) 35.0 % 07/18/24 12:25 [place] % (Auto) 10.1 % 07/18/24 12:25 Eos % (Auto) 3.8 % 07/18/24 12:25 Baso % (Auto) 0.7 % 07/18/24 12:25 Neut # (Auto) 4.10 10^3/uL (1.8-7.7) 07/18/24 12:25 Lymph # (Auto) 2.9 10^3/uL (0.8-4.8) 07/18/24 12:25 [place] # (Auto) 0.8 10^3/uL (0.2-0.9) 07/18/24 12:25 Eos # (Auto) 0.3 10^3/uL (0.0-0.8) 07/18/24 12:25 Baso # (Auto) 0.1 10^3/uL (0.0-0.1) 07/18/24 12: Nucleated RBC % (auto) 0 % 07/18/24: Nucleated RBCs # 0.0 /100WBC 07/18/24 12:25 Sodium 143 mmol/L (136-145) 07/18/24 12:25 Potassium 3.4 mmol/L (3.5-5.1) L 07/18/24 12:25 Chloride 108 mmol/L (98-107) H 07/18/24 12:25 Carbon Dioxide 23 mmol/L (22-29) 07/18/24 12:25 Anion Gap 15.4 (5-19) 07/18/24 12:25 BUN 10 mg/dL (8-23) 07/18/24 12:25 Creatinine 0.6 mg/dL (0.5-0.9) 07/18/24 12:25 GFR Calculation 101.3 mL/min (90-130) 07/18/24 12:25 Glucose 125 mg/dL (65-115) H 07/18/24 12:25 Calculated Osmolality 297 mOsm/kg (285-295) H 07/18/24 12:25 Calcium 8.2 mg/dL (8.5-10.5) L 07/18/24 12:25 Total Bilirubin 0.5 mg/dL (0.15-1.2) 07/18/24 12:25 AST 33 U/L (0-32) H 07/18/24 12:25 ALT 22 U/L (0-33) 07/18/24 12:25 Alkaline Phosphatase 87 U/L (35-105) 07/18/24 12:25 Troponin T Baseline 14 ng/L (0-10) H 07/18/24 12:25 Total Protein 5.0 g/dL (6.6-8.7) L 07/18/24 12:25 Albumin 2.8 g/dL (3.5-5.2) L 07/18/24 12:25 Globulin 2.2 g/dL (1.3-4.6) 07/18/24 12:25 Urine Color Dark yellow (Yellow) A 07/18/24 13:39 Urine Appearance Cloudy (CLEAR) A 07/18/24 13:39 Urine pH 6.0 (5-7) 07/18/24 13:39 Ur Specific Basom 1.016 (1.005-1.030) 07/18/24 13:39 Urine Protein Trace (Negative) A 07/18/24 13:39 Urine Glucose (UA) Negative (Normal) 07/18/24 13:39 Urine Ketones Trace (Negative) 07/18/24 13:39 Urine Blood Negative (Negative) 07/18/24 13:39 Urine Nitrate Negative (Negative) 07/18/24 13:39 Urine Bilirubin 1+ (Negative) H 07/18/24 13:39 Urine Urobilinogen 1.0 mg/dL (Negative) 07/18/24 13:39 Ur Leukocyte Esterase 1+ (Negative) A 07/18/24 13:39 Urine RBC None /hpf (0-2) 07/18/24 13:39 Urine WBC 0-5 /hpf (0-5) 07/18/24 13:39 Ur Squamous Epith Cells 0-4 /hpf (0-5) H 07/18/24 13:39 Calcium Oxalate Crystal 40-55 /hpf H 07/18/24 13:39 Amorphous Sediment Not Reportable 07/18/24 13:39 Urine Bacteria 1+ /hpf (NONE) H 07/18/24 13:39 No radiology studies performed this visit Discharge Plan Discharge Patient Disposition: Home Clinical Impression: Near syncope, Hypoglycemia, Dehydration Condition: Stable Prescriptions: New cephalexin 500 mg capsule 500 mg PO BID 5 Days Qty: 10 0RF No Action prazosin 2 mg capsule 8 mg PO BEDTIME duloxetine [Cymbalta] 60 mg capsule,delayed release(DR/EC) 60 mg PO BID metoprolol tartrate 25 mg tablet 12.5 mg PO BID Qty: 60 0RF albuterol sulfate [Ventolin HFA] 90 mcg/actuation HFA aerosol inhaler 2 puff inhalation Q6H PRN (Reason: shortness of breath or wheezing) Qty: 8.5 0RF diclofenac sodium 1 % gel 4 g topical QID Qty: 100 1RF Rx Instructions: apply to single knee, ankle, foot; for foot includes sole/toes/top of foot mupirocin 2 % ointment 1 applic topical BID 14 Days Qty: 22 0RF cyproheptadine 4 mg tablet 4 mg PO BEDTIME (DME) CAM walker See Rx Instructions .Route .MEDSUPPLY Qty: 1 0RF Rx Instructions: As directed (DME) Dexcom G6 Aquatics Manager Misc See Rx Instructions .Route Qty: 1 0RF Rx Instructions: Check BS 4 times a day. (DME) FreeStyle Nael 2 Sensor Kit See Rx Instructions .Route Qty: 6 3RF Rx Instructions: As directed amlodipine 5 mg Tablet 5 mg PO QAM alprazolam [Xanax] 0.5 mg Tablet 0.25 mg PO DAILY PRN (Reason: Anxiety) cyanocobalamin (vitamin B-12) 1,000 mcg/mL Solution 1,000 mcg IM Q30D buspirone 15 mg Tablet 30 mg PO BID pregabalin [Lyrica] 300 mg Capsule 300 mg PO BID potassium chloride 20 mEq/15 mL Liquid 40 meq PO TID Rx Instructions: Mix with 6 oz water/juice Bariatric Multivitamins 45 mg iron- 800 mcg-120 mcg Capsule 1 cap PO DAILY Eliquis DVT-PE Treat 30D Start 5 mg (74 tabs) tablets,dose pack See Rx Instructions .ROUTE .COMPLEX Qty: 74 0RF Rx Instructions: Take as directed per package instructions. omeprazole 20 mg capsule,delayed release(DR/EC) 20 mg PO BID oxybutynin chloride 5 mg Tablet 10 mg PO TID Eliquis 5 mg Tablet 5 mg PO BID isosorbide mononitrate 30 mg tablet extended release 24 hr 30 mg PO BID Discharge Orders: Discharge ED (Routine); Ordered 07/18/24 Ordered By: Nini Bell Referrals: Anju Taveras FNP [Primary Care Provider] - Discharge Diet: Usual diet Discharge Activity: Increase activity as tolerated Patient Instructions: Near Syncope (ED), Opioid Safety, Pain Management Activity Restrictions/Additional Instructions: Thank you for choosing [facility] for your healthcare needs today. Please realize this is an emergency room and that we are providing you with a medical screening exam and this may not be complete and all inclusive of all the testing and or work up that you may need to determine your ailment or severity of your illness. You have been screened and evaluated and felt safe for discharge. Health conditions do change or evolve sometimes and as such it is important that you follow up with your Primary Doctor to be re checked, 3-5 days is a general good time frame for follow up. You are always welcome to return to the ED for re assessment if your symptoms are worsening or you have new concerns Print Language: Tajik Coding Level of Care Code ED C Wpf Developer for Stefany Morales
--- NOTE | 2024-07-18 12:14 | ECG_ITS ---
[employer] Test Date: 2024-07-18 Pat Name: Randi Kay Department: Room: Gender: Female Coagulant Dipper: : 1960 Requested By: Nini Coleman Order Number: [id number] Estrella MD: Luis A Adair M.D. Measurements Intervals [place] Rate: 56 P: 52 [place]: 175 QRS: -67 QRSD: 157 T: 10 QT: 477 QTc: 462 Interpretive Statements SINUS BRADYCARDIA RIGHT BUNDLE BRANCH BLOCK [120+ ms QRS DURATION, UPRIGHT V1, 40+ ms S IN I/aVL/V4/V5/V6] LEFT ANTERIOR FASCICULAR BLOCK [QRS AXIS <= -45, QR IN I, RS IN II] POSSIBLE ANTERIOR MYOCARDIAL INFARCTION , PROBABLY OLD [30 ms Q WAVE IN V3/V4, OR R < 0.2 mV IN V4] Compared to ECG 07/05/2024 10:10:03 Left anterior fascicular block now present Left-axis deviation no longer present Myocardial infarct finding still present Electronically Signed On 07-18-2024 17:50:22 SUPERVISOR TESTING by Luis A Adair M.D. [id number]
--- NOTE | 2024-07-18 12:23 | PC.PHAR ---
Addendum entered by Shanta Pickering 07/18/24 12:49: Last Med Rec completed on 07/05/24. Pt had 2 medications added. They are as follows: Bariatric Multivitamins = iron daily and Eliquis DVT PE treatment. Both were added on 07/05/24. Original Note: Faxed [place] for med list 07/18/24 12:23pm
[2024-07-18] MEDS: sodium chloride 0.9% 1,000 ML 999 ML IV (12:30)
[2024-07-18 12:35] LABS: Basophils # 0.1 10^3/uL (0.0-0.1); Basophils % 0.7 %; Eosinophils # 0.3 10^3/uL (0.0-0.8); Eosinophils % 3.8 %; Hematocrit 39.4 % (36-47); Lymphocytes # 2.9 10^3/uL (0.8-4.8); Mean Corpuscular HGB Conc 32.7 g/dL (30-55); Mean Corpuscular Volume 88.5 fl (85-98); Mean Platelet Volume 12.4 fL (7.4-10.4); Monocytes # 0.8 10^3/uL (0.2-0.9); Monocytes % 10.1 %; Nucleated Red Blood Cells % 0 %; Platelet Count 172 10^3/cmm (157-399); Red Blood Count 4.45 10^6/uL (3.85-5.65); Red Cell Distribution Width 17.2 % (12.1-15.1)
[2024-07-18 12:57] LABS: Troponin(5th) Baseline 14 ng/L (0-10)
[2024-07-18 13:00] VITALS: BP 115/60; PULSE 68; O2SAT 96
[2024-07-18 13:00] LABS: Alanine Aminotransferase 22 U/L (0-33); Albumin Level 2.8 g/dL (3.5-5.2); Alkaline Phosphatase 87 U/L (35-105); Aspartate Amino Transferase 33 U/L (0-32); Blood Urea Nitrogen 10 mg/dL (8-23); Calcium 8.2 mg/dL (8.5-10.5); Carbon Dioxide 23 mmol/L (22-29); Chloride 108 mmol/L (98-107); Creatinine Clr Calc Pharmacy 128.2862; Globulin 2.2 g/dL (1.3-4.6); Glomerular Filtration Rate 101.3 mL/min (90-130); Glucose 125 mg/dL (65-115); Osmolality Calculated 297 mOsm/kg (285-295); Sodium 143 mmol/L (136-145); Total Bilirubin 0.5 mg/dL (0.15-1.2)
[2024-07-18 13:02] LABS: Anion Gap 15.4 (5-19); Potassium 3.4 mmol/L (3.5-5.1)
[2024-07-18] MEDS: potassium chloride oral liq 20 mEq/15 mL UDC 40 MEQ PO (13:12)
[2024-07-18 13:45] VITALS: BP 107/60; PULSE 44; O2SAT 97
[2024-07-18 13:58] LABS: Bilirubin Urine 1+ (Negative); Blood Urine Negative (Negative); Glucose Urine UA Negative (Normal); Ketones Urine Trace (Negative); Leukocyte Esterase Urine 1+ (Negative); Nitrate Urine Negative (Negative); Protein Urine Trace (Negative); Specific Gravity, Urine 1.016 (1.005-1.030); Urine Appearance Cloudy (CLEAR); Urine Color Dark Yellow (Yellow)
--- NOTE | 2024-07-18 14:04 | ECG_ITS ---
[email or web address] Test Date: 2024-07-18 Pat Name: Randi Kay Department: Room: Gender: Female Fire Systems Inspector: : 1960 Requested By: Nini Coleman Order Number: [id number] Reading MD: Measurements Intervals [place] Rate: 53 P: 53 [place]: 176 QRS: -74 QRSD: 152 T: -5 QT: 488 QTc: 459 Interpretive Statements SINUS BRADYCARDIA RIGHT BUNDLE BRANCH BLOCK [120+ ms QRS DURATION, UPRIGHT V1, 40+ ms S IN I/aVL/V4/V5/V6] LEFT ANTERIOR FASCICULAR BLOCK [QRS AXIS <= -45, QR IN I, RS IN II] POSSIBLE ANTERIOR MYOCARDIAL INFARCTION , OF INDETERMINATE AGE [30 ms Q WAVE IN V3/V4, OR R < 0.2 mV IN V4] [email or web address]
[2024-07-18 14:31] LABS: Bacteria Urine 1+ /hpf; Squamous Epithelial Cell Urine 0-4 /hpf (0-5); UA Manual Slide Review YES; UA Slide Review UA Slide Review Perf; WBC Urine 0-5 /hpf (0-5)
[2024-07-18 14:32] LABS: Calcium Oxalate Crystals Urine 40-55 /hpf
[2024-07-18 15:03] VITALS: BP 107/63; PULSE 54; O2SAT 94
== END 2024-07-18 15:04 | disposition home or self-care (01) ==
PROVIDERS: Emergency Provider Emergency Medicine; PCP Nurse Practitioner
DX: R55 Syncope and collapse (principal); E11.649 Type 2 diabetes mellitus with hypoglycemia without coma; E86.0 Dehydration; I10 Essential (primary) hypertension; I25.10 Atherosclerotic heart disease of native coronary artery without angina pectoris; E78.5 Hyperlipidemia, unspecified
CPT/HCPCS: 80053; 81001; 84484; 85025; 93005; 96360; 96361; 99284; J7030

== ENCOUNTER 2024-07-22 15:46 | Outpatient (CLI) | payer OTHER, SELFPAY ==
--- NOTE | 2024-07-22 15:48 | MM_ITS ---
WS: [id number] BILATERAL 3D TOMOSYNTHESIS DIGITAL SCREENING MAMMOGRAPHY WITH CAD CLINICAL INFORMATION: SCREENING HISTORY: Screening mammogram. No current complaints. COMPARISON: 2021 TECHNIQUE: Bilateral CC and MLO views. FINDINGS: Scattered fibroglandular densities bilaterally. No suspicious focal mass, asymmetry, calcifications, or architectural distortion. No evidence of malignancy. Incidental lucent centered calcification LEFT breast. MM/MM scr BI tomosynthesis [id number] IMPRESSION: DENSITY: There are scattered areas of fibroglandular density. BI-RADS: 2 - Benign. FOLLOW UP: 1 Year Follow-up Recommend return to annual screening mammography.
== END 2024-07-22 15:47 | disposition home or self-care (01) ==
PROVIDERS: PCP Nurse Practitioner; Visit Provider Nurse Practitioner
DX: Z12.31 Encounter for screening mammogram for malignant neoplasm of breast (principal); R92.323 Mammographic fibroglandular density, bilateral breasts; R92.1 Mammographic calcification found on diagnostic imaging of breast
CPT/HCPCS: 77063; 77067

== ENCOUNTER 2024-07-26 10:36 | Emergency (ER) | payer OTHER, SELFPAY ==
[2024-07-26] VITALS (11 sets, daily range): BP systolic 121–153; BP diastolic 64–72; PULSE 57–75; RESP 16–18; TEMP 36.3; O2SAT 92–100; BMI 41.6
--- NOTE | 2024-07-26 10:40 | ECG_ITS ---
[employer] Test Date: 2024-07-26 Pat Name: Randi Kay Department: Room: Gender: Female Communications Engineer: : 1960 Requested By: John Coleman Order Number: [id number] Delores MD: Luis A Adair M.D. Measurements Intervals [place] Rate: 79 P: 22 [place]: 151 QRS: -68 QRSD: 150 T: 16 QT: 442 QTc: 508 Interpretive Statements SINUS RHYTHM RIGHT BUNDLE BRANCH BLOCK [120+ ms QRS DURATION, UPRIGHT V1, 40+ ms S IN I/aVL/V4/V5/V6] LEFT ANTERIOR FASCICULAR BLOCK [QRS AXIS <= -45, QR IN I, RS IN II] POSSIBLE ANTERIOR MYOCARDIAL INFARCTION , OF INDETERMINATE AGE [30 ms Q WAVE IN V3/V4, OR R < 0.2 mV IN V4] Compared to ECG 07/18/2024 14:04:35 Sinus bradycardia no longer present Myocardial infarct finding still present Electronically Signed On 07-27-2024 07:44:22 FLUTE GRINDER by Luis A Adair M.D. [email or web address] [id number]
--- NOTE | 2024-07-26 11:18 | XR_ITS ---
WS: [id number] Portable AP upright chest, 07/26/2024 Clinical Data: chest pain Comparison: Portable chest, 07/05/2024 Findings: No nodules, masses or effusions are seen. The heart is normal. The pulmonary vascularity is not increased. No pneumonia or pneumothorax is seen. Monitor leads are on the chest wall. XR/XR chest 1V portable [id number] Impression: Negative chest.
--- NOTE | 2024-07-26 11:29 | W.ED.CHESTPA ---
Documented by User: BALTAZAR Regalado 07/26/24 16:14 HPI - Chest Pain General: Chief Complaint: Chest Pain Stated Complaint: va set, chest pain Time Seen by Provider: 07/26/24 11:14 Source: patient Mode of arrival: ambulatory Limitations: no limitations History of Present Illness: Patient is a 64-year-old female with a history of morbid obesity, gastric bypass surgery, coronary artery disease, diabetes, bilateral pulmonary emboli and hyperlipidemia who presents emergency room from the [facility] for evaluation of chest pain and leg swelling. She states chest pain began around 8 AM this morning while she was getting ready for her follow-up appointment at the [facility]. She states she was following up regarding her last ER visit earlier this month where she was seen following a syncopal episode. She was subsequently diagnosed with bilateral PEs and placed on Eliquis. She does not have any evidence of right heart strain at time. Patient states she has been compliant with her anticoagulation. States she does have a history of Prinzmetal angina. She does see cardiology. Patient states she took her isosorbide this morning. States she has noticed a 6lb weight gain over the past week or so. Does not complain of significant dyspnea. MD complaint: chest pain Onset (ago): hour(s) Timing of current episode: constant Onset: during rest Pain location: substernal and left chest Pain radiation: left arm Severity: moderate Relieving factors: nothing Exacerbating factors: nothing Context: history of DVT/PE Associated symptoms: Deny abdominal pain, dyspnea, fever(s), nausea, palpitations, syncope or vomiting Treatment prior to arrival: none Risk Factors: Coronary artery disease risk factors: hypertension Thoracic aortic dissection risk factors: none Related Data Home Medications ?Medication ?Instructions ?Recorded ?Confirmed prazosin 2 mg capsule 8 mg PO BEDTIME 10/18/21 07/26/24 amlodipine 5 mg tablet 5 mg PO QAM 06/17/22 07/26/24 pregabalin 300 mg capsule (Lyrica) 300 mg PO BID 06/17/22 07/26/24 cyproheptadine 4 mg tablet 4 mg PO BEDTIME 08/11/23 07/26/24 [id number] 45 mg-folic 1 cap PO DAILY 07/05/24 07/26/24 acid 800 mcg-vit K 120 mcg capsule (Bariatric Multivitamins) potassium chloride 20 mEq/15 mL 40 meq PO TID 07/05/24 07/26/24 oral liquid apixaban 5 mg tablet (Eliquis) 5 mg PO BID 07/18/24 07/26/24 omeprazole 20 mg capsule,delayed 20 mg PO BID 07/18/24 07/26/24 release oxybutynin chloride 5 mg tablet 10 mg PO TID 07/18/24 07/26/24 insulin glargine 100 unit/mL (3 80 unit SUBCUT DAILY 07/26/24 07/26/24 mL) subcutaneous pen isosorbide dinitrate 30 mg tablet 30 mg PO BID 07/26/24 07/26/24 tirzepatide 12.5 mg/0.5 mL 12.5 mg SUBCUT Q7D 07/26/24 07/26/24 subcutaneous pen injector Previous Rx's ?Medication ?Instructions ?Recorded blood-glucose meter,continuous #1 ea 05/17/21 (Dexcom G6 Lamination Machine Operator) flash glucose sensor (FreeStyle #6 ea 04/19/22 Nael 2 Sensor kit) albuterol sulfate 90 mcg/actuation 2 puff inhalation Q6H PRN 01/04/23 aerosol inhaler (Ventolin HFA) shortness of breath or wheezing #8.5 grams mupirocin 2 % topical ointment 1 applic topical BID 2 weeks #22 05/30/24 grams CAM walker #1 ea 06/13/24 Allergies Allergy/AdvReac Type Severity Reaction Status Date / Time ondansetron (From Zofran) Allergy Severe Dystonia Verified 07/15/24 10:10 bee venom protein (honey bee) Allergy anaphylaxis Verified 07/15/24 10:10 Influenza Virus Vaccines Allergy anaphylacti Verified 07/15/24 10:10 c mushroom Allergy anaphylaxis Verified 07/15/24 10:10 tetracycline Allergy Rash, Verified 07/15/24 10:10 shortness of breath trazodone Allergy Rash, Verified 07/15/24 10:10 trouble breathing Review of Systems Const: Denies: fever(s), chills, body aches, fatigue or malaise Eyes: Denies: change in vision or blurry vision Card: Reports: chest pain, edema and swelling of feet/ankles; Denies: palpitations, irregular heart rhythm, lightheadedness, syncope, pre-syncope, dyspnea on exertion, orthopnea, leg pain with exertion or acrocyanosis Resp: Denies: dyspnea, productive cough or pain on inspiration GI: Denies: abdominal pain, nausea, vomiting, heartburn or diarrhea : Denies: flank pain or dysuria Musc: Reports: extremity swelling; Denies: neck pain, back pain, extremity pain, joint pain, joint swelling or joint redness Skin/Breast: Denies: rash Neuro: Denies: headache(s), numbness in extremities, weakness in extremities, sensory changes or dizziness PFS ED PFSH: Medical History Tear of medial meniscus of left knee, current Renal failure Left knee pain No pertinent past medical history NegHx: thyroid, dvt/pe PCP: Tania Gastroparesis Prinzmetal angina Metatarsalgia of both feet Post traumatic stress disorder (PTSD) Hyperlipidemia Coronary 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 Takes Lyrica for the neuropathy. Does take hydrocodone as needed for pain. GERD (gastroesophageal reflux disease) Controlled on medication Anxiety and depression Diagnosed in the and controlled well on medication at this time managed by primary care provider nurse jami Taveras. Hypertension Diagnosed in 2018 managed by primary care provider nurse practitioner Nitin Surgical History H/O esophagogastroduodenoscopy (09/01/21) History of coronary angiogram 06/2021 and 05/2022 History of surgery neck lipoma removal- S/P appendectomy 1980-right lower quadrant incision, right ovary and appendix were removed. Hx of breast surgery ductectomy from the left breast done in her late 30s S/P tubal ligation 1982-immediately . History of back surgery Pain pump insertion, removed in 2014 S/P left knee arthroscopy Hx of oophorectomy 1980---right lower quadrant incision-right ovary and appendix were removed when she presented with pain to the emergency room S/P hysterectomy 1985--vaginal hysterectomy with left oophorectomy performed for a uterine mass she was told that there was no cancer but there were some abnormal cells and it was recommended that she have chemotherapy for 6 weeks however she did only 2 weeks and then did not finish the rest of treatment. S/P tonsillectomy and adenoidectomy As a child S/P cholecystectomy Laparoscopic procedure performed in 1992 Family History Mother Heart disease Hypertension Ovarian cancer Diagnosed at age 34 Suicide Thyroid disease Uterine cancer Diagnosed at age 34, unsure of origin Father Heart disease Thyroid disease Sister Thyroid disease Family/Other Thyroid disease [place], granddaughter Other Diabetes Social History Smoking and tobacco/nicotine status: never used tobacco/nicotine Quit status (tobacco/nicotine): has quit using Second hand smoke exposure: No Alcohol intake: former Substance/Drug Use: never Adopted: No Caregiver/support person: No Lives independently: Yes Housing: House Marital status: Number of children: 2 Highest education level completed: Associate Degree: Occupational, Technical, Vocational Program service: Yes Pets and animals: Yes Sexually active: Yes Do you think of yourself as: Straight/Heterosexual Gricel/Congregation: [employer] Special gricel needs: No Agree to transfusion: No Physical Exam Const: COMMON NORMALS: no acute distress, patient oriented x3, no limitations, alert and well nourished GENERAL APPEARANCE: cooperative NUTRITIONAL APPEARANCE: obese (BMI 41.7) ORIENTATION/CONSCIOUSNESS: Yes awake, Yes oriented to person, Yes oriented to place and Yes oriented to time HENMT: COMMON NORMALS: normocephalic and atraumatic HEAD & SCALP: normal to inspection, normocephalic and atraumatic Neck/C-Spine: COMMON NORMALS: full ROM, no lymphadenopathy, supple and no meningeal signs Chest: COMMONS NORMALS: normal inspection of the chest Resp: COMMON NORMALS: normal respiratory effort and clear to auscultation bilaterally AUSCULTATION: clear to auscultation bilaterally Cardio: COMMON NORMALS: regular rate and regular rhythm RATE: regular rate RHYTHM: regular rhythm : COMMON NORMALS: Yes no CVA tenderness BLADDER/KIDNEY EXAM: Yes no CVA tenderness Back/Pelvis: COMMON NORMALS: no CVA tenderness and thoracic and lumbar spine normal to inspection Extremity: COMMON NORMALS: capillary refill normal and no calf tenderness NARRATIVE EXTREMITY EXAM: LE symmetrical edema GENERAL: Yes normal exam except as noted Neuro: COMMON NORMALS: patient oriented x3, moves all extremities, no focal motor deficits and no sensory deficits noted SENSORIUM/ORIENTATION: Yes alert, Yes oriented to person, Yes oriented to place and Yes oriented to time MENINGEAL SIGNS: Yes no meningeal signs Skin: COMMON NORMALS: no rashes or lesions noted GENERAL SKIN EXAM: no rashes or lesions noted Course Consultations: Consultation #1: Dr. Ann-does not feel she needs to be hospitalized as there would be nothing to offer apart from continued pain control; would not have ability for stress testing over the weekend Vital Signs: Vital signs: Vital Signs Temperature 97.4 F L 07/26/24 10:40 Pulse Rate 66 07/26/24 16:28 Respiratory Rate 16 07/26/24 16:28 Blood Pressure 130/64 07/26/24 16:28 Pulse Oximetry 95 07/26/24 16:28 Oxygen Delivery Me thod Room Air 07/26/24 10:40 MDM - Chest Pain Medical Decision Making Patient is a 64-year-old female here for swelling to her legs and chest pain. Her emergency workup is fairly unremarkable. She clinically appears in no acute distress with stable vital signs. Blood work is overall unremarkable. Her baseline troponin of 13 which is unchanged from her to previous. She has a negative delta. Her BNP is scantly elevated at 154. CXR is unremarkable without evidence of fluid overload. Due to known bilateral pulmonary emboli and symptoms, echocardiogram imaging was ordered. This is nornmal. Continued chest pain despite morphine, nitro, toradol. Spoke to Dr. Ball and we will repeat CTA imaging. This showed improving pulmonary emboli. No evidence of new or progressive embolus. Due to continued chest pain, I did speak to hospitalist Dr. Ann for admission but he did not feel patient required hospitalization as there is nothing further he would be able to offer her. He would not be able to stress test her over the weekend. Patient will be allowed discharge home. She feels comfortable with this plan. She will return for any further concerns she may have. Medical Records I reviewed the patient's medical records. Lab Data I reviewed the patient's lab results. 07/26/24 11:20 07/26/24 11:20 Radiology Impressions Chest X-Ray 07/26/24 11:18 Impression: Negative chest. Chest CTA 07/26/24 14:41 IMPRESSION: 1. Previously described pulmonary emboli have improved but with persistent filling defects in the RIGHT lower lobe and proximal LEFT lower lobe pulmonary arteries. 2. No evidence of new or progressive embolus. 3. No other significant changes. Laboratory Results WBC 8.76 10^3/uL (3.29-11.43) 07/26/24 11:20 RBC 4.64 10^6/uL (3.85-5.65) 07/26/24 11:20 Hgb 13.60 g/dL (11.27-16.99) 07/26/24 11:20 Hct 41.5 % (36-47) 07/26/24 11:20 MCV 89.4 fl (85-98) 07/26/24 11:20 MCH 29.3 pg (27-33) 07/26/24 11:20 MCHC 32.8 g/dL (30-55) 07/26/24 11:20 RDW 17.5 % (12.1-15.1) H 07/26/24 11:20 Plt Count 186 10^3/cmm (157-399) 07/26/24 11:20 MPV 12.8 fL (7.4-10.4) H 07/26/24 11:20 Neut % (Auto) 42.3 % 07/26/24 11:20 Lymph % (Auto) 36.1 % 07/26/24 11:20 [place] % (Auto) 11.3 % 07/26/24 11:20 Eos % (Auto) 8.8 % 07/26/24 11:20 Baso % (Auto) 0.9 % 07/26/24 11:20 Neut # (Auto) 3.71 10^3/uL (1.8-7.7) 07/26/24 11:20 Lymph # (Auto) 3.2 10^3/uL (0.8-4.8) 07/26/24 11:20 [place] # (Auto) 1.0 10^3/uL (0.2-0.9) H 07/26/24 11:20 Eos # (Auto) 0.8 10^3/uL (0.0-0.8) 07/26/24 11:20 Baso # (Auto) 0.1 10^3/uL (0.0-0.1) 07/26/24 11:20 Nucleated RBC % (auto) 0 % 07/26/24 11:20 Nucleated RBCs # 0.0 /100WBC 07/26/24 11:20 Sodium 139 mmol/L (136-145) 07/26/24 11:20 Potassium 3.0 mmol/L (3.5-5.1) L 07/26/24 11:20 Chloride 106 mmol/L (98-107) 07/26/24 11:20 Carbon Dioxide 23 mmol/L (22-29) 07/26/24 11:20 Anion Gap 13.0 (5-19) 07/26/24 11:20 BUN 6 mg/dL (8-23) L 07/26/24 11:20 Creatinine 0.6 mg/dL (0.5-0.9) 07/26/24 11:20 GFR Calculation 101.3 mL/min (90-130) 07/26/24 11:20 Glucose 114 mg/dL (65-115) 07/26/24 11:20 Calculated Osmolality 286 mOsm/kg (285-295) 07/26/24 11:20 Calcium 8.5 mg/dL (8.5-10.5) 07/26/24 11:20 Total Bilirubin 0.6 mg/dL (0.15-1.2) 07/26/24 11:20 AST 44 U/L (0-32) H 07/26/24 11:20 ALT 26 U/L (0-33) 07/26/24 11:20 Alkaline Phosphatase 93 U/L (35-105) 07/26/24 11:20 Troponin T Baseline 13 ng/L (0-10) H 07/26/24 11:20 Troponin T 120 Minute 10.78 ng/L (0-10) H 07/26/24 13:18 Delta Troponin T -2.22 ABS# (0-10) L 07/26/24 13:18 NT-Pro-B Natriuret Pep 154 pg/mL (0-125) H 07/26/24 11:20 Total Protein 5.9 g/dL (6.6-8.7) L 07/26/24 11:20 Albumin 3.2 g/dL (3.5-5.2) L 07/26/24 11:20 Globulin 2.7 g/dL (1.3-4.6) 07/26/24 11:20 All radiology interpretation(s) finalized by discharge Discharge Plan Discharge Patient Disposition: Home Clinical Impression: Prinzmetal angina, Bilateral pulmonary embolism Chest pain Qualifiers: Chest pain type: unspecified Qualified Code(s): R07.9 - Chest pain, unspecified Condition: Stable Prescriptions: No Action prazosin 2 mg capsule 8 mg PO BEDTIME albuterol sulfate [Ventolin HFA] 90 mcg/actuation HFA aerosol inhaler 2 puff inhalation Q6H PRN (Reason: shortness of breath or wheezing) Qty: 8.5 0RF mupirocin 2 % ointment 1 applic topical BID 14 Days Qty: 22 0RF cyproheptadine 4 mg tablet 4 mg PO BEDTIME (DME) CAM walker See Rx Instructions .Route .MEDSUPPLY Qty: 1 0RF Rx Instructions: As directed (DME) Dexcom G6 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 (DME) FreeStyle Nael 2 Sensor Kit See Rx Instructions .Route Qty: 6 3RF Rx Instructions: As directed isosorbide dinitrate 30 mg Tablet 30 mg PO BID Rx Instructions: allow nitrate-free interval of 12-14 hrs per 24-hr period insulin glargine 100 unit/mL (3 mL) Insulin Pen 80 unit SUBCUT DAILY tirzepatide 12.5 mg/0.5 mL Pen Injector 12.5 mg SUBCUT Q7D amlodipine 5 mg Tablet 5 mg PO QAM pregabalin [Lyrica] 300 mg Capsule 300 mg PO BID potassium chloride 20 mEq/15 mL Liquid 40 meq PO TID Rx Instructions: Mix with 6 oz water/juice Bariatric Multivitamins 45 mg iron- 800 mcg-120 mcg Capsule 1 cap PO DAILY omeprazole 20 mg capsule,delayed release(DR/EC) 20 mg PO BID oxybutynin chloride 5 mg Tablet 10 mg PO TID Eliquis 5 mg Tablet 5 mg PO BID Discharge Orders: Discharge ED (Routine); Ordered 07/26/24 Ordered By: Kesha Schilling Referrals: Anju Taveras FNP [Primary Care Provider] - Activity Restrictions/Additional Instructions: As we discussed, your emergency department workup was reassuring. Your echocardiogram was normal. CTA imaging shows improving pulmonary emboli. Continue your Eliquis as directed. Please follow-up with your primary care provider early this week for reevaluation. You need to return to the emergency department for any worsening concerns you may have. Hope you begin to feel better soon. 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 [employer] Fwd Documented by User: John Ball DO 07/26/24 16:56 HPI - Chest Pain General: Chief Complaint: Chest Pain Stated Complaint: va set, chest pain Time Seen by Provider: 07/26/24 11:14 Related Data Home Medications ?Medication ?Instructions ?Recorded ?Confirmed prazosin 2 mg capsule 8 mg PO BEDTIME 10/18/21 07/26/24 amlodipine 5 mg tablet 5 mg PO QAM 06/17/22 07/26/24 pregabalin 300 mg capsule (Lyrica) 300 mg PO BID 06/17/22 07/26/24 cyproheptadine 4 mg tablet 4 mg PO BEDTIME 08/11/23 07/26/24 cmabulai-dhhlyhms-queb 45 mg-folic 1 cap PO DAILY 07/05/24 07/26/24 acid 800 mcg-vit K 120 mcg capsule (Bariatric Multivitamins) potassium chloride 20 mEq/15 mL 40 meq PO TID 07/05/24 07/26/24 oral liquid apixaban 5 mg tablet (Eliquis) 5 mg PO BID 07/18/24 07/26/24 omeprazole 20 mg capsule,delayed 20 mg PO BID 07/18/24 07/26/24 release oxybutynin chloride 5 mg tablet 10 mg PO TID 07/18/24 07/26/24 insulin glargine 100 unit/mL (3 80 unit SUBCUT DAILY 07/26/24 07/26/24 mL) subcutaneous pen isosorbide dinitrate 30 mg tablet 30 mg PO BID 07/26/24 07/26/24 tirzepatide 12.5 mg/0.5 mL 12.5 mg SUBCUT Q7D 07/26/24 07/26/24 subcutaneous pen injector Previous Rx's ?Medication ?Instructions ?Recorded blood-glucose meter,continuous #1 ea 05/17/21 (Dexcom G6 Lamination Machine Operator) flash glucose sensor (FreeStyle #6 ea 04/19/22 Nael 2 Sensor kit) albuterol sulfate 90 mcg/actuation 2 puff inhalation Q6H PRN 01/04/23 aerosol inhaler (Ventolin HFA) shortness of breath or wheezing #8.5 grams mupirocin 2 % topical ointment 1 applic topical BID 2 weeks #22 05/30/24 grams CAM walker #1 ea 06/13/24 Allergies Allergy/AdvReac Type Severity Reaction Status Date / Time ondansetron (From Zofran) Allergy Severe Dystonia Verified 07/15/24 10:10 bee venom protein (honey bee) Allergy anaphylaxis Verified 07/15/24 10:10 Influenza Virus Vaccines Allergy anaphylacti Verified 07/15/24 10:10 c mushroom Allergy anaphylaxis Verified 07/15/24 10:10 tetracycline Allergy Rash, Verified 07/15/24 10:10 shortness of breath trazodone Allergy Rash, Verified 07/15/24 10:10 trouble breathing [facility] PFSH: Medical History Tear of medial meniscus of left knee, current Renal failure Left knee pain No pertinent past medical history NegHx: thyroid, dvt/pe PCP: Tania Gastroparesis Prinzmetal angina Metatarsalgia of both feet Post traumatic stress disorder (PTSD) Hyperlipidemia Coronary 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 Takes Lyrica for the neuropathy. Does take hydrocodone as needed for pain. GERD (gastroesophageal reflux disease) Controlled on medication Anxiety and depression Diagnosed in the and controlled well on medication at this time managed by primary care provider nurse practitioner Nitin. Hypertension Diagnosed in 2018 managed by primary care provider nurse practitioner Nitin Surgical History H/O esophagogastroduodenoscopy (09/01/21) History of coronary angiogram 06/2021 and 05/2022 History of surgery neck lipoma removal- S/P appendectomy 1980-right lower quadrant incision, right ovary and appendix were removed. Hx of breast surgery ductectomy from the left breast done in her late 30s S/P tubal ligation 1982-immediately . History of back surgery Pain pump insertion, removed in 2014 S/P left knee arthroscopy Hx of oophorectomy 1980---right lower quadrant incision-right ovary and appendix were removed when she presented with pain to the emergency room S/P hysterectomy 1985--vaginal hysterectomy with left oophorectomy performed for a uterine mass she was told that there was no cancer but there were some abnormal cells and it was recommended that she have chemotherapy for 6 weeks however she did only 2 weeks and then did not finish the rest of treatment. S/P tonsillectomy and adenoidectomy As a child S/P cholecystectomy Laparoscopic procedure performed in 1992 Family History Mother Heart disease Hypertension Ovarian cancer Diagnosed at age 34 Suicide Thyroid disease Uterine cancer Diagnosed at age 34, unsure of origin Father Heart disease Thyroid disease Sister Thyroid disease Family/Other Thyroid disease [place], granddaughter Other Diabetes Social History Smoking and tobacco/nicotine status: never used tobacco/nicotine Quit status (tobacco/nicotine): has quit using Second hand smoke exposure: No Alcohol intake: former Substance/Drug Use: never Adopted: No Caregiver/support person: No Lives independently: Yes Housing: House Marital status: Number of children: 2 Highest education level completed: Associate Degree: Occupational, Technical, Vocational Program service: Yes Pets and animals: Yes Sexually active: Yes Do you think of yourself as: Straight/Heterosexual G[employer]el/Congregation: [employer] Special gricel needs: No Agree to transfusion: No Course Vital Signs: Vital signs: Vital Signs Temperature 97.4 F L 07/26/24 10:40 Pulse Rate 66 07/26/24 16:28 Respiratory Rate 16 07/26/24 16:28 Blood Pressure 130/64 07/26/24 16:28 Pulse Oximetry 95 07/26/24 16:28 Oxygen Delivery Me thod Room Air 07/26/24 10:40 MDM - Chest Pain Medical Decision Making Patient is a 64-year-old female here for swelling to her legs and chest pain. Her emergency workup is fairly unremarkable. She clinically appears in no acute distress with stable vital signs. Blood work is overall unremarkable. Her baseline troponin of 13 which is unchanged from her to previous. She has a negative delta. Her BNP is scantly elevated at 154. CXR is unremarkable without evidence of fluid overload. Due to known bilateral pulmonary emboli and symptoms, echocardiogram imaging was ordered. This is nornmal. Continued chest pain despite morphine, nitro, toradol. Spoke to Dr. Ball and we will repeat CTA imaging. This showed improving pulmonary emboli. No evidence of new or progressive embolus. Due to continued chest pain, I did speak to hospitalist Dr. Ann for admission but he did not feel patient required hospitalization as there is nothing further he would be able to offer her. He would not be able to stress test her over the weekend. Patient will be allowed discharge home. She feels comfortable with this plan. She will return for any further concerns she may have. Chart reviewed and patient discussed with midlevel. Agree with assessment and plan. Lab Data 07/26/24 11:20 07/26/24 11:20 Radiology Impressions Chest X-Ray 07/26/24 11:18 Impression: Negative chest. Chest CTA 07/26/24 14:41 IMPRESSION: 1. Previously described pulmonary emboli have improved but with persistent filling defects in the RIGHT lower lobe and proximal LEFT lower lobe pulmonary arteries. 2. No evidence of new or progressive embolus. 3. No other significant changes. Laboratory Results WBC 8.76 10^3/uL (3.29-11.43) 07/26/24 11:20 RBC 4.64 10^6/uL (3.85-5.65) 07/26/24 11:20 Hgb 13.60 g/dL (11.27-16.99) 07/26/24 11:20 Hct 41.5 % (36-47) 07/26/24 11:20 MCV 89.4 fl (85-98) 07/26/24 11:20 MCH 29.3 pg (27-33) 07/26/24 11:20 MCHC 32.8 g/dL (30-55) 07/26/24 11:20 RDW 17.5 % (12.1-15.1) H 07/26/24 11:20 Plt Count 186 10^3/cmm (157-399) 07/26/24 11:20 MPV 12.8 fL (7.4-10.4) H 07/26/24 11:20 Neut % (Auto) 42.3 % 07/26/24 11:20 Lymph % (Auto) 36.1 % 07/26/24 11:20 [place] % (Auto) 11.3 % 07/26/24 11:20 Eos % (Auto) 8.8 % 07/26/24 11:20 Baso % (Auto) 0.9 % 07/26/24 11:20 Neut # (Auto) 3.71 10^3/uL (1.8-7.7) 07/26/24 11:20 Lymph # (Auto) 3.2 10^3/uL (0.8-4.8) 07/26/24 11:20 [place] # (Auto) 1.0 10^3/uL (0.2-0.9) H 07/26/24 11:20 Eos # (Auto) 0.8 10^3/uL (0.0-0.8) 07/26/24 11:20 Baso # (Auto) 0.1 10^3/uL (0.0-0.1) 07/26/24 11:20 Nucleated RBC % (auto) 0 % 07/26/24 11:20 Nucleated RBCs # 0.0 /100WBC 07/26/24 11:20 Sodium 139 mmol/L (136-145) 07/26/24 11:20 Potassium 3.0 mmol/L (3.5-5.1) L 07/26/24 11:20 Chloride 106 mmol/L (98-107) 07/26/24 11:20 Carbon Dioxide 23 mmol/L (22-29) 07/26/24 11:20 Anion Gap 13.0 (5-19) 07/26/24 11:20 BUN 6 mg/dL (8-23) L 07/26/24 11:20 Creatinine 0.6 mg/dL (0.5-0.9) 07/26/24 11:20 GFR Calculation 101.3 mL/min (90-130) 07/26/24 11:20 Glucose 114 mg/dL (65-115) 07/26/24 11:20 Calculated Osmolality 286 mOsm/kg (285-295) 07/26/24 11:20 Calcium 8.5 mg/dL (8.5-10.5) 07/26/24 11:20 Total Bilirubin 0.6 mg/dL (0.15-1.2) 07/26/24 11:20 AST 44 U/L (0-32) H 07/26/24 11:20 ALT 26 U/L (0-33) 07/26/24 11:20 Alkaline Phosphatase 93 U/L (35-105) 07/26/24 11:20 Troponin T Baseline 13 ng/L (0-10) H 07/26/24 11:20 Troponin T 120 Minute 10.78 ng/L (0-10) H 07/26/24 13:18 Delta Troponin T -2.22 ABS# (0-10) L 07/26/24 13:18 NT-Pro-B Natriuret Pep 154 pg/mL (0-125) H 07/26/24 11:20 Total Protein 5.9 g/dL (6.6-8.7) L 07/26/24 11:20 Albumin 3.2 g/dL (3.5-5.2) L 07/26/24 11:20 Globulin 2.7 g/dL (1.3-4.6) 07/26/24 11:20 Discharge Plan Discharge Patient Disposition: Home Clinical Impression: Prinzmetal angina, Bilateral pulmonary embolism Chest pain Qualifiers: Chest pain type: unspecified Qualified Code(s): R07.9 - Chest pain, unspecified Condition: Stable Prescriptions: No Action prazosin 2 mg capsule 8 mg PO BEDTIME albuterol sulfate [Ventolin HFA] 90 mcg/actuation HFA aerosol inhaler 2 puff inhalation Q6H PRN (Reason: shortness of breath or wheezing) Qty: 8.5 0RF mupirocin 2 % ointment 1 applic topical BID 14 Days Qty: 22 0RF cyproheptadine 4 mg tablet 4 mg PO BEDTIME (DME) CAM walker See Rx Instructions .Route .MEDSUPPLY Qty: 1 0RF Rx Instructions: As directed (DME) Dexcom G6 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 (DME) FreeStyle Nael 2 Sensor Kit See Rx Instructions .Route Qty: 6 3RF Rx Instructions: As directed isosorbide dinitrate 30 mg Tablet 30 mg PO BID Rx Instructions: allow nitrate-free interval of 12-14 hrs per 24-hr period insulin glargine 100 unit/mL (3 mL) Insulin Pen 80 unit SUBCUT DAILY tirzepatide 12.5 mg/0.5 mL Pen Injector 12.5 mg SUBCUT Q7D amlodipine 5 mg Tablet 5 mg PO QAM pregabalin [Lyrica] 300 mg Capsule 300 mg PO BID potassium chloride 20 mEq/15 mL Liquid 40 meq PO TID Rx Instructions: Mix with 6 oz water/juice Bariatric Multivitamins 45 mg iron- 800 mcg-120 mcg Capsule 1 cap PO DAILY omeprazole 20 mg capsule,delayed release(DR/EC) 20 mg PO BID oxybutynin chloride 5 mg Tablet 10 mg PO TID Eliquis 5 mg Tablet 5 mg PO BID Discharge Orders: Discharge ED (Routine); Ordered 07/26/24 Ordered By: Kesha Schilling Referrals: Anju Taveras FNP [Primary Care Provider] - Activity Restrictions/Additional Instructions: As we discussed, your emergency department workup was reassuring. Your echocardiogram was normal. CTA imaging shows improving pulmonary emboli. Continue your Eliquis as directed. Please follow-up with your primary care provider early this week for reevaluation. You need to return to the emergency department for any worsening concerns you may have. Hope you begin to feel better soon. 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 Stefany Morales
[2024-07-26 11:32] LABS: Basophils # 0.1 10^3/uL (0.0-0.1); Basophils % 0.9 %; Eosinophils # 0.8 10^3/uL (0.0-0.8); Eosinophils % 8.8 %; Hematocrit 41.5 % (36-47); Lymphocytes # 3.2 10^3/uL (0.8-4.8); Lymphocytes % 36.1 %; Mean Corpuscular HGB Conc 32.8 g/dL (30-55); Mean Corpuscular Hemoglobin 29.3 pg (27-33); Mean Corpuscular Volume 89.4 fl (85-98); Mean Platelet Volume 12.8 fL (7.4-10.4); Monocytes % 11.3 %; Neutrophils # 3.71 10^3/uL (1.8-7.7); Neutrophils % 42.3 %; Nucleated Red Blood Cells % 0 %; Platelet Count 186 10^3/cmm (157-399); Red Blood Count 4.64 10^6/uL (3.85-5.65); Red Cell Distribution Width 17.5 % (12.1-15.1); White Blood Count 8.76 10^3/uL (3.29-11.43)
--- NOTE | 2024-07-26 11:47 | USCV_ITS ---
Randi Kay Age: 64 Gender: F : 1960 Exam Date: 07/26/2024 13:17 Ordering Phys: Kesha Schilling Technologist: Bonifacio Li [place] [facility] [place]: bilateral PEs BP: 153 / 71 HR: 76 Rhythm: Sinus Technical Quality: Adequate MEASUREMENTS (Male / Female) Normal Values 2D ECHO LV Diastolic Diameter PLAX 6.0 cm 4.2 - 5.9 / 3.9 - 5.3 cm IVS Diastolic Thickness 1.2 cm 0.6 - 1.0 / 0.6 - 0.9 cm IVS Systolic Thickness 1.9 cm LVPW Diastolic Thickness 1.6 cm 0.6 - 1.0 / 0.6 - 0.9 cm LVPW Systolic Thickness 1.6 cm LVOT Diameter 2.0 cm LV Ejection Fraction 2D Teich 59.9 % LV Ejection Fraction MOD 4C 77.1 % LV Ejection Fraction MOD 2C 57.7 % LV Ejection Fraction 2C AL 57.8 % RA Systolic Volume 4C AL 55.2 ml RA Systolic Volume 4C MOD 55.3 ml LA Sys Volume AL 48.1 cm cubed LA Sys Volume Index AL 19.7 cm cubed/m squared IVC Diameter 1.5 cm M-MODE LA Ao Ratio MM 1.1 AV Cusp Separation MM 1.7 cm DOPPLER AV Peak Velocity 152.0 cm/s LVOT Peak Velocity 98.0 cm/s AV Area Cont Eq vti 2.2 cm squared AV Area Cont Eq pk 2.0 cm squared MV Peak Velocity 77.0 cm/s MV Area PHT 5.9 cm squared Mitral E to A Ratio 0.9 TR Peak Velocity 238.0 cm/s TR Peak Gradient 22.7 mmHg TR Mean Velocity 185.0 cm/s TR Mean Gradient 15.2 mmHg TR Velocity Time Integral 66.5 cm PV Peak Velocity 115.0 cm/s RV Ejection Time 0.3 s FINDINGS Left Ventricle Normal left ventricular size, systolic function and wall thickness, with no regional wall motion abnormalities. Estimated LVEF 60%. Right Ventricle RV is normal size. Normal RV systolic function. Right Atrium Normal right atrial size. Left Atrium Normal left atrial size. Mitral Valve Structurally normal mitral valve. No mitral valve regurgitation. Aortic Valve Structurally normal trileaflet aortic valve. No aortic valve stenosis. Tricuspid Valve Structurally normal tricuspid valve. Trace tricuspid valve regurgitation. Estimated pulmonary artery systolic pressure 27 mmHg. Pulmonic Valve Pulmonic valve not well visualized. Trace pulmonary valve regurgitation. Pericardium No pericardial effusion. Aorta Normal size aortic root and proximal ascending aorta. IVC Normal inferior vena cava. CONCLUSIONS Normal left ventricular systolic function. Estimated LVEF normal, 60%. Normal chamber sizes. Normal RV size and RV systolic function. No significant valvular abnormality noted. Normal RV and pulmonary pressures. Jose Alfredo Davison MD (Electronically Signed) Final Date: 26 July 2024 14:53 S
--- NOTE | 2024-07-26 11:52 | SUR.PREOP ---
Addendum entered by Shanta Pickering 07/26/24 11:56: [facility]pt states nothing on her med list has changed. Original Note: [facility] 11:50am 07/26/24
[2024-07-26 12:05] LABS: Alanine Aminotransferase 26 U/L (0-33); Albumin Level 3.2 g/dL (3.5-5.2); Alkaline Phosphatase 93 U/L (35-105); Aspartate Amino Transferase 44 U/L (0-32); Blood Urea Nitrogen 6 mg/dL (8-23); Calcium 8.5 mg/dL (8.5-10.5); Carbon Dioxide 23 mmol/L (22-29); Chloride 106 mmol/L (98-107); Creatinine Clr Calc Pharmacy 130.7927; Globulin 2.7 g/dL (1.3-4.6); Glomerular Filtration Rate 101.3 mL/min (90-130); Glucose 114 mg/dL (65-115); NT Pro B Type Natriuretic Pept 154 pg/mL (0-125); Osmolality Calculated 286 mOsm/kg (285-295); Sodium 139 mmol/L (136-145); Total Bilirubin 0.6 mg/dL (0.15-1.2); Total Protein 5.9 g/dL (6.6-8.7)
[2024-07-26 12:22] LABS: Troponin(5th) Baseline 13 ng/L (0-10)
--- NOTE | 2024-07-26 13:18 | ECG_ITS ---
[facility] Test Date: 2024-07-26 Pat Name: Randi Kay Department: Room: Gender: Female Phone Technician: : 1960 Requested By: Kesha Schilling Order Number: [id number] Delores MD: Luis A Adair M.D. Measurements Intervals [place] Rate: 60 P: 66 HI: 158 QRS: -66 QRSD: 160 T: 28 QT: 499 QTc: 502 Interpretive Statements SINUS RHYTHM RIGHT BUNDLE BRANCH BLOCK [120+ ms QRS DURATION, UPRIGHT V1, 40+ ms S IN I/aVL/V4/V5/V6] LEFT ANTERIOR FASCICULAR BLOCK [QRS AXIS <= -45, QR IN I, RS IN II] Compared to ECG 07/26/2024 10:40:44 Myocardial infarct finding no longer present Electronically Signed On 07-27-2024 08:17:10 COMMUNITY HEALTH DIRECTOR by Luis A Adair M.D. [email or web address]
[2024-07-26] MEDS: nitroglycerin 0.4 mg sublingual Tablet SUBLINGUAL ×2 (13:21→13:55)
[2024-07-26] MEDS: morphine 4 mg/mL SDV 1 mL IVP (13:21)
[2024-07-26 14:13] LABS: Troponin 5 2HR 10.78 ng/L (0-10)
[2024-07-26 14:15] LABS: Troponin 5 2HR Delta -2.22 ABS# (0-10)
--- NOTE | 2024-07-26 14:41 | CT_ITS ---
WS: [id number] CTA OF THE CHEST WITH PULMONARY EMBOLISM PROTOCOL TECHNIQUE: High-resolution contrast enhanced CTA of the chest with coronal and sagittal reformatted images with pulmonary embolism protocol. MIP images are also reviewed. CLINICAL INFORMATION: known bilateral PEs; chest pain/sob COMPARISON: 07/05/2024 DLP: 497.[address] scans at [facility] use at least one of these dose optimization techniques: automated exposure control; mA and/or kV adjustment per patient size (includes targeted exams where dose is matched to clinical indication); or iterative reconstruction. FINDINGS: Proximal main pulmonary arteries are normal. A few small filling defects in the distal RIGHT main pulmonary artery extending into the RIGHT lower lobe pulmonary arteries compatible with small emboli. Small filling defect in the LEFT distal main pulmonary artery. RIGHT middle lobe embolus appears recannulated. No evidence of RIGHT heart strain. Normal caliber thoracic aorta. No mediastinal or hilar lymphadenopathy. No axillary lymphadenopathy. Bibasilar atelectasis. No focal pneumonia. Nodular LEFT adrenal gland. Normal RIGHT adrenal gland. Fatty liver with hepatomegaly. Cholecystectomy clips. Postoperative changes gastric bypass. Moderate thoracic kyphosis. Ankylosis thoracic spine. Nodular RIGHT thyroid. CT/CT angio chest PE protcl [id number] IMPRESSION: 1. Previously described pulmonary emboli have improved but with persistent jeanine ling defects in the RIGHT lower lobe and proximal LEFT lower lobe pulmonary art eries. 2. No evidence of new or progressive embolus. 3. No other significant changes.
[2024-07-26] MEDS: iohexol 350 mg/mL 500 mL Btl (per mL) IV (14:54)
[2024-07-26] MEDS: ketorolac 30 mg/mL INJ IVP (15:14)
--- NOTE | 2024-07-26 15:45 | PC.NURSE ---
this nurse assumed pt care from KELSIE Yousif at 1540.
== END 2024-07-26 16:27 | disposition home or self-care (01) ==
PROVIDERS: Emergency Provider Physician Assistant; PCP Nurse Practitioner
DX: I20.1 Angina pectoris with documented spasm (principal); I10 Essential (primary) hypertension; E11.9 Type 2 diabetes mellitus without complications; E78.5 Hyperlipidemia, unspecified; I26.99 Other pulmonary embolism without acute cor pulmonale; R07.9 Chest pain, unspecified; Z79.4 Long term (current) use of insulin; Z79.01 Long term (current) use of anticoagulants
CPT/HCPCS: 36415; 71045; 71275; 80053; 83880; 84484; 85025; 93005; 93306; 96374; 96375; 99285; J1885; J2270

== ENCOUNTER → 2024-07-31 09:56 | Outpatient (BNVA) | payer OTHER, SELFPAY | PROVIDERS: PCP Nurse Practitioner; Visit Provider Podiatrist Foot & Ankle Surgery | DX: E11.621 Type 2 diabetes mellitus with foot ulcer (principal); L97.512 Non-pressure chronic ulcer of other part of right foot with fat layer exposed; E11.42 Type 2 diabetes mellitus with diabetic polyneuropathy; M20.41 Other hammer toe(s) (acquired), right foot; M20.42 Other hammer toe(s) (acquired), left foot; M21.41 Flat foot [pes planus] (acquired), right foot; M21.42 Flat foot [pes planus] (acquired), left foot; M72.2 Plantar fascial fibromatosis; Z79.4 Long term (current) use of insulin | CPT/HCPCS: 99213 ==

== ENCOUNTER → 2024-08-02 07:51 | Outpatient (BNVA) | payer OTHER, SELFPAY | PROVIDERS: PCP Nurse Practitioner; Visit Provider Nurse Practitioner | DX: M17.0 Bilateral primary osteoarthritis of knee (principal); Z71.89 Other specified counseling | CPT/HCPCS: 20610; 99213; J7327 ==

== ENCOUNTER → 2024-08-21 10:50 | Outpatient (BNVA) | payer OTHER, SELFPAY | PROVIDERS: PCP Nurse Practitioner; Visit Provider Podiatrist Foot & Ankle Surgery | DX: E11.621 Type 2 diabetes mellitus with foot ulcer (principal); L97.512 Non-pressure chronic ulcer of other part of right foot with fat layer exposed; E11.42 Type 2 diabetes mellitus with diabetic polyneuropathy; M20.41 Other hammer toe(s) (acquired), right foot; M20.42 Other hammer toe(s) (acquired), left foot; M21.41 Flat foot [pes planus] (acquired), right foot; M21.42 Flat foot [pes planus] (acquired), left foot; M72.2 Plantar fascial fibromatosis; E11.8 Type 2 diabetes mellitus with unspecified complications; Z79.4 Long term (current) use of insulin | CPT/HCPCS: 99213 ==

== ENCOUNTER → 2024-08-21 13:50 | Outpatient (BNVA) | payer OTHER, SELFPAY | PROVIDERS: PCP Nurse Practitioner; Visit Provider Internal Medicine Cardiovascular Disease | DX: I25.10 Atherosclerotic heart disease of native coronary artery without angina pectoris (principal); I12.9 Hypertensive chronic kidney disease with stage 1 through stage 4 chronic kidney disease, or unspecified chronic kidney disease; N18.9 Chronic kidney disease, unspecified; Z87.891 Personal history of nicotine dependence; E78.5 Hyperlipidemia, unspecified; E66.9 Obesity, unspecified; Z68.39 Body mass index [BMI] 39.0-39.9, adult; Z86.711 Personal history of pulmonary embolism; Z79.01 Long term (current) use of anticoagulants | CPT/HCPCS: 99214 ==

== ENCOUNTER 2024-09-08 16:22 | Emergency (ER) | payer OTHER, SELFPAY ==
--- NOTE | 2024-09-08 16:26 | XRR_ITS ---
PROCEDURE INFORMATION: Exam: XR Right Hip Exam date and time: 09/08/2024 5:03 PM Age: 64 years old Clinical indication: Injury or trauma; Blunt trauma (contusions or hematomas); Injury details: PT presents with complaint of fall Monday night. PT states she was getting on the lawnmower and fell onto her right hip. PT states she is able to bear very little weight on hip or leg. No rotation or shortening noted TECHNIQUE: Imaging protocol: Radiologic exam of the right hip. Views: 1 view hip with pelvis when performed. COMPARISON: US renal BI* [id number] 03/20/2020 3:17 PM FINDINGS: Bones/joints: Moderate degenerative changes of the whejt-xiqsnol-mlkw-left hip joints. No dislocation. Soft tissues: Unremarkable. Intraperitoneal space: Pelvis is intact. XR/XR hip RT 2-3V wo/w pel* [id number] IMPRESSION: As above.
[2024-09-08 16:36] VITALS: BP 123/65; PULSE 90; RESP 15; TEMP 36.6; O2SAT 98; BMI 39.1
--- NOTE | 2024-09-08 17:02 | CTR_ITS ---
PROCEDURE INFORMATION: Exam: CT Lumbar Spine Without Contrast Exam date and time: 09/08/2024 5:13 PM Age: 64 years old Clinical indication: Injury or trauma; Fall; Blunt trauma (contusions or hematomas) TECHNIQUE: Imaging protocol: Computed tomography of the lumbar spine without contrast. Radiation optimization: All CT scans at this facility use at least one of these dose optimization techniques: automated exposure control; mA and/or kV adjustment per patient size (includes targeted exams where dose is matched to clinical indication); or iterative reconstruction. COMPARISON: MR hip LT wo con* [id number] 12/07/2022 12:46 PM RADIATION DOSE METRICS: Total DLP (mGy-cm): 1498.7 FINDINGS: Bones/joints: Preserved vertebral body heights and alignment. Multilevel degenerative changes of the lumbar spine resulting seen in varying degrees of bony neural foraminal narrowing most prominent at L5-S1 of the right and at L3-L4 bilaterally. Multilevel posterior disc osteophyte complexes most prominent at L1-L2 resulting in at least moderate spinal canal stenosis. Mild levoconvex curvature of the lumbar spine. There appears to be a known sclerotic S1 vertebral body lesion. Soft tissues: Unremarkable. CT/CT lumbar spine wo con* [id number] IMPRESSION: No acute displaced lumbar spine fracture. No traumatic malalignment. Degenerative changes as above.
--- NOTE | 2024-09-08 17:02 | CTR_ITS ---
PROCEDURE INFORMATION: Exam: CT Right Lower Extremity Without Contrast, Hip Exam date and time: 09/08/2024 5:45 PM Age: 64 years old Clinical indication: Pain and injury or trauma; Blunt trauma; Right; Prior surgery; Surgery date: 6+ months; Surgery type: Appy. Hysterectomy. Tubal; C/O worsening RT hip pain with ability to bear weight since a fall three days ago. TECHNIQUE: Imaging protocol: CT of the right lower extremity without contrast was performed. Exam focused on the hip. Radiation optimization: All CT scans at this facility use at least one of these dose optimization techniques: automated exposure control; mA and/or kV adjustment per patient size (includes targeted exams where dose is matched to clinical indication); or iterative reconstruction. COMPARISON: CR (PELVIS, ) 09/08/2024 5:03 PM RADIATION DOSE METRICS: Total DLP (mGy-cm): 711.67 FINDINGS: Bones/joints: Moderate right hip joint degenerative changes. Enthesopathic changes involving the greater trochanter. Enthesopathic changes involve the ischial tuberosity. No dislocation. No sacroiliac joint or pubic symphyseal widening. Soft tissues: Normal. CT/CT hip RT wo con* [id number] IMPRESSION: Moderate degenerative changes of the right hip joint without evidence of acute displaced fractures or traumatic dislocation.
--- NOTE | 2024-09-08 17:02 | W.ED.FALL ---
HPI - Fall General: Chief Complaint: Fall Stated Complaint: fall right hip pain Time Seen by Provider: 09/08/24 16:26 Source: patient Mode of arrival: ambulatory Limitations: no limitations History of Present Illness: 64-year-old female states that on Monday she was trying to on longboard and fell. States she had landed on her right hip she been having right hip along with low back pain since then. She states the pain is sharp in nature. She states she is able ambulate but has pain when she tries to stand. She denies hitting her head denies any neck pain rates her pain a 6 out of 10 currently. Associated symptoms-after fall: Denies abdominal pain, chest pain, headache(s) or neck pain Related Data Home Medications ?Medication ?Instructions ?Recorded ?Confirmed prazosin 2 mg capsule 8 mg PO BEDTIME 10/18/21 08/21/24 pregabalin 300 mg capsule (Lyrica) 300 mg PO BID 06/17/22 08/21/24 cyproheptadine 4 mg tablet 4 mg PO BEDTIME 08/11/23 08/21/24 apixaban 5 mg tablet (Eliquis) 5 mg PO BID 07/18/24 08/21/24 omeprazole 20 mg capsule,delayed 20 mg PO BID 07/18/24 08/21/24 release isosorbide dinitrate 30 mg tablet 30 mg PO BID 07/26/24 08/21/24 oxybutynin chloride 5 mg tablet 20 mg PO BID 08/21/24 08/21/24 Previous Rx's ?Medication ?Instructions ?Recorded albuterol sulfate 90 mcg/actuation 2 puff inhalation Q6H PRN 01/04/23 aerosol inhaler (Ventolin HFA) shortness of breath or wheezing #8.5 grams Allergies Allergy/AdvReac Type Severity Reaction Status Date / Time ondansetron (From Zofran) Allergy Severe Dystonia Verified 08/21/24 14:24 bee venom protein (honey bee) Allergy anaphylaxis Verified 08/21/24 14:24 Influenza Virus Vaccines Allergy anaphylacti Verified 08/21/24 14:24 c mushroom Allergy anaphylaxis Verified 08/21/24 14:24 tetracycline Allergy Rash, Verified 08/21/24 14:24 shortness of breath trazodone Allergy Rash, Verified 08/21/24 14:24 trouble breathing Review of Systems Const: Denies: fever(s), chills, body aches or change in appetite ENMT: Denies: throat pain or dental pain Card: Denies: chest pain Resp: Denies: dyspnea GI: Denies: abdominal pain, nausea, vomiting or diarrhea Musc: Reports: extremity pain; Denies: neck pain or back pain Skin/Breast: Denies: rash Neuro: Denies: headache(s) PFSH ED PFSH: Medical History Tear of medial meniscus of left knee, current Renal failure Left knee pain No pertinent past medical history NegHx: thyroid, dvt/pe PCP: Tania Gastroparesis Prinzmetal angina Metatarsalgia of both feet Post traumatic stress disorder (PTSD) Hyperlipidemia Coronary 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 Takes Lyrica for the neuropathy. Does take hydrocodone as needed for pain. GERD (gastroesophageal reflux disease) Controlled on medication Anxiety and depression Diagnosed in the and controlled well on medication at this time managed by primary care provider nurse jami Taveras. Hypertension Diagnosed in 2018 managed by primary care provider nurse practitioner Nitin Surgical History H/O esophagogastroduodenoscopy (09/01/21) History of coronary angiogram 06/2021 and 05/2022 History of surgery neck lipoma removal- S/P appendectomy 1980-right lower quadrant incision, right ovary and appendix were removed. Hx of breast surgery ductectomy from the left breast done in her late 30s S/P tubal ligation 1982-immediately . History of back surgery Pain pump insertion, removed in 2014 S/P left knee arthroscopy Hx of oophorectomy 1980---right lower quadrant incision-right ovary and appendix were removed when she presented with pain to the emergency room S/P hysterectomy 1985--vaginal hysterectomy with left oophorectomy performed for a uterine mass she was told that there was no cancer but there were some abnormal cells and it was recommended that she have chemotherapy for 6 weeks however she did only 2 weeks and then did not finish the rest of treatment. S/P tonsillectomy and adenoidectomy As a child S/P cholecystectomy Laparoscopic procedure performed in 1992 Family History Mother Heart disease Hypertension Ovarian cancer Diagnosed at age 34 Suicide Thyroid disease Uterine cancer Diagnosed at age 34, unsure of origin Father Heart disease Thyroid disease Sister Thyroid disease Family/Other Thyroid disease [place], granddaughter Other Diabetes Social History Smoking and tobacco/nicotine status: former use of tobacco/nicotine Quit status (tobacco/nicotine): has quit using Second hand smoke exposure: No Alcohol intake: former Substance/Drug Use: never Adopted: No Caregiver/support person: No Lives independently: Yes Housing: House Marital status: Number of children: 2 Highest education level completed: Associate Degree: Occupational, Technical, Vocational Program service: Yes Pets and animals: Yes Sexually active: Yes Do you think of yourself as: Straight/Heterosexual Gricel/Cheondoism: Congregational Special gricel needs: No Agree to transfusion: No Physical Exam Const: COMMON NORMALS: no acute distress, patient oriented x3 and healthy appearing HENMT: COMMON NORMALS: normocephalic and atraumatic HEAD & SCALP: normocephalic and atraumatic Eye: COMMON NORMALS: conjunctivae normal CONJUNCTIVA: Yes conjunctivae normal Neck/C-Spine: COMMON NORMALS: full ROM and supple Chest: COMMONS NORMALS: normal inspection of the chest and normal palpation of entire chest wall Resp: COMMON NORMALS: normal respiratory effort Cardio: COMMON NORMALS: regular rate RATE: regular rate GI: COMMON NORMALS: Normal to inspection, nondistended, normoactive bowel sounds present, Soft to palpation, non-tender and no masses PALPATION: Yes Soft to palpation Back/Pelvis: OTHER: Tenderness along right lower back and L-spine Extremity: COMMON NORMALS: full ROM NARRATIVE EXTREMITY EXAM: Tenderness over right hip able to stand but has pain Neuro: COMMON NORMALS: patient oriented x3, moves all extremities and no focal motor deficits Psych: COMMON NORMALS: mental status grossly normal, Normal thought process present and cooperative THOUGHT PROCESS: Normal thought process present Skin: COMMON NORMALS: no rashes or lesions noted and no wounds GENERAL SKIN EXAM: no rashes or lesions noted Course Vital Signs: Vital signs: Vital Signs Temperature 97.8 F 09/08/24 16:36 Pulse Rate 71 09/08/24 18:00 Respiratory Rate 15 04/13/25 16:36 Blood Pressure 114/52 09/08/24 18:00 Pulse Oximetry 96 09/08/24 18:00 Oxygen Delivery Me thod Room Air 09/08/24 18:00 MDM - Fall Medical Decision Making Patient presents with a right hip contusion from a fall imaging here is negative no signs of any fractures patient stable for discharge follow-up PCP return if worsening. Medical Records I reviewed the patient's medical records. Lab Data Radiology Impressions Hip/Pelvis X-Ray 09/08/24 16:26 IMPRESSION: As above. Hip CT 09/08/24 17:02 IMPRESSION: Moderate degenerative changes of the right hip joint without evidence of acute displaced fractures or traumatic dislocation. Lumbar Spine CT 09/08/24 17:02 IMPRESSION: No acute displaced lumbar spine fracture. No traumatic malalignment. Degenerative changes as above. All radiology interpretation(s) finalized by discharge Discharge Plan Discharge Patient Disposition: Home Clinical Impression: Contusion of right hip, Fall Condition: Stable Prescriptions: No Action prazosin 2 mg capsule 8 mg PO BEDTIME albuterol sulfate [Ventolin HFA] 90 mcg/actuation HFA aerosol inhaler 2 puff inhalation Q6H PRN (Reason: shortness of breath or wheezing) Qty: 8.5 0RF cyproheptadine 4 mg tablet 4 mg PO BEDTIME isosorbide dinitrate 30 mg Tablet 30 mg PO BID Rx Instructions: allow nitrate-free interval of 12-14 hrs per 24-hr period pregabalin [Lyrica] 300 mg Capsule 300 mg PO BID omeprazole 20 mg capsule,delayed release(DR/EC) 20 mg PO BID Eliquis 5 mg Tablet 5 mg PO BID oxybutynin chloride 5 mg tablet 20 mg PO BID Discharge Orders: Discharge ED (Routine); Ordered 09/08/24 Ordered By: Carroll Cheng Referrals: Anju Taveras FNP [Primary Care Provider] - Discharge Diet: Advance as tolerated Discharge Activity: Resume usual activity Patient Instructions: Hip Contusion (ED) Print Language: Lithuanian Coding Level of Care Code ED Medical Sonographer for Stefany Morales
[2024-09-08 17:09] VITALS: BP 132/71; PULSE 76; O2SAT 99
[2024-09-08 18:00] VITALS: BP 114/52; PULSE 71; O2SAT 96
[2024-09-08 19:00] VITALS: BP 128/73; PULSE 80; RESP 18; O2SAT 99
[2024-09-08 19:18] VITALS: RESP 16; O2SAT 94
[2024-09-08] MEDS: morphine 4 mg/mL SDV 1 mL IM (19:18)
[2024-09-08 19:43] VITALS: BP 122/72; PULSE 75; O2SAT 98
== END 2024-09-08 19:44 | disposition home or self-care (01) ==
PROVIDERS: Emergency Provider Emergency Medicine; PCP Nurse Practitioner
DX: S70.01XA Contusion of right hip, initial encounter (principal); Z79.01 Long term (current) use of anticoagulants; Z87.891 Personal history of nicotine dependence; I10 Essential (primary) hypertension; E78.5 Hyperlipidemia, unspecified; I25.10 Atherosclerotic heart disease of native coronary artery without angina pectoris; E11.40 Type 2 diabetes mellitus with diabetic neuropathy, unspecified; W19.XXXA Unspecified fall, initial encounter
CPT/HCPCS: 72131; 73502; 73700; 96372; 99284; J2270

== ENCOUNTER 2024-10-01 10:16 | Emergency (ER) | payer OTHER, SELFPAY ==
[2024-10-01 10:24] VITALS: BP 107/81; PULSE 87; RESP 18; TEMP 36.7; O2SAT 98
--- NOTE | 2024-10-01 11:04 | USCV_ITS ---
Randi Kay Age: 64 Gender: F : 1960 Exam Date: 10/01/2024 11:58 Ordering Phys: Kesha Schilling Technologist: [employer] [place] [facility] [place]: right leg pain HISTORY: RIGHT Lower extremity pain. PROCEDURES: Venous duplex imaging was performed in only the right lower extremity. The following venous structures were evaluated: common femoral vein, profunda vein, proximal portion of the greater saphenous vein, superficial femoral vein, and the popliteal vein. In addition, the posterior tibial and peroneal trunk were evaluated. FINDINGS: Examination was technically limited due to body habitus. No evidence of DVT seen in any vessel visualized at this time. CONCLUSIONS No evidence of right lower extremity DVT. Daryn Pinto MD (Electronically Signed) Final Date: 01 Oct 2024 16:26 S
--- NOTE | 2024-10-01 11:04 | W.ED.EXTPRO ---
HPI - Extremity Problem General: Chief complaint: Extremity Injury, Lower Stated complaint: [facility], possible clot Time Seen by Provider: 10/01/24 10:39 Source: patient Mode of arrival: ambulatory Limitations: no limitations History of Present Illness: Patient is a 64-year-old female presenting to the emergency department with 4 days of right lower extremity pain and swelling and sent here for rule out DVT. She reports Monday she hit her knee/anterior lower leg which then became red and swollen. On Monday her PCP put her on Keflex which she has been taking since then. Over the last couple of days she has developed what she describes as a knot in her right calf. She states that it has become swollen, red, and tight. She reports that the pain worsens with ambulation and weight bearing and improves with rest. Patient reports a history of bilateral pulmonary embolism and is taking Eliquis as prescribed. MD Complaint: extremity pain and extremity swelling Onset (ago): day(s) Pain Consistency: constant Location: right and lower extremity Quality: constant Radiation: none Relieving factors: elevation and rest Exacerbating factors: weight bearing and walking Associated symptoms: Reports no associated symptoms; Deny chest pain or fever(s) Context: other (hx bilateral PEs-on Eliquis) Related Data Home Medications ?Medication ?Instructions ?Recorded ?Confirmed prazosin 2 mg capsule 8 mg PO BEDTIME 10/18/21 10/01/24 pregabalin 300 mg capsule (Lyrica) 300 mg PO BID 06/17/22 10/01/24 cyproheptadine 4 mg tablet 4 mg PO BEDTIME 08/11/23 10/01/24 apixaban 5 mg tablet (Eliquis) 5 mg PO BID 07/18/24 10/01/24 omeprazole 20 mg capsule,delayed 20 mg PO BID 07/18/24 10/01/24 release isosorbide dinitrate 30 mg tablet 30 mg PO BID 07/26/24 10/01/24 oxybutynin chloride 5 mg tablet 10 mg PO DAILY 08/21/24 10/01/24 cephalexin 500 mg capsule 500 mg PO TID 10/01/24 10/01/24 methocarbamol 750 mg tablet 750 mg PO TID PRN Spasms 10/01/24 10/01/24 prochlorperazine maleate 10 mg 10 mg PO DAILY PRN Nausea 10/01/24 10/01/24 tablet Previous Rx's ?Medication ?Instructions ?Recorded albuterol sulfate 90 mcg/actuation 2 puff inhalation Q6H PRN 01/04/23 aerosol inhaler (Ventolin HFA) shortness of breath or wheezing #8.5 grams sulfamethoxazole 800 2 tab PO BID 7 days #28 tabs 10/01/24 mg-trimethoprim 160 mg tablet (Bactrim DS) Allergies Allergy/AdvReac Type Severity Reaction Status Date / Time ondansetron (From Zofran) Allergy Severe Dystonia Verified 08/21/24 14:24 bee venom protein (honey bee) Allergy anaphylaxis Verified 08/21/24 14:24 Influenza Virus Vaccines Allergy anaphylacti Verified 08/21/24 14:24 c mushroom Allergy anaphylaxis Verified 08/21/24 14:24 tetracycline Allergy Rash, Verified 08/21/24 14:24 shortness of breath trazodone Allergy Rash, Verified 08/21/24 14:24 trouble breathing Review of Systems Const: Denies: fever(s), chills or body aches Card: Denies: chest pain or palpitations Resp: Denies: dyspnea or wheezing Musc: Reports: extremity pain and extremity swelling; Denies: joint pain, joint swelling, joint redness, joint warmth or joint stiffness Skin/Breast: Reports: erythema (R LE) Neuro: Reports: difficulty walking (Due to pain); Denies: headache(s), numbness in extremities, weakness in extremities or sensory changes PFSH ED PFSH: Medical History Tear of medial meniscus of left knee, current Renal failure Left knee pain No pertinent past medical history NegHx: thyroid, dvt/pe PCP: Tania Gastroparesis Prinzmetal angina Metatarsalgia of both feet Post traumatic stress disorder (PTSD) Hyperlipidemia Coronary 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 Takes Lyrica for the neuropathy. Does take hydrocodone as needed for pain. GERD (gastroesophageal reflux disease) Controlled on medication Anxiety and depression Diagnosed in the and controlled well on medication at this time managed by primary care provider nurse jami Taveras. Hypertension Diagnosed in 2018 managed by primary care provider nurse practitioner Nitin Surgical History H/O esophagogastroduodenoscopy (09/01/21) History of coronary angiogram 06/2021 and 05/2022 History of surgery neck lipoma removal- S/P appendectomy 1980-right lower quadrant incision, right ovary and appendix were removed. Hx of breast surgery ductectomy from the left breast done in her late 30s S/P tubal ligation 1982-immediately . History of back surgery Pain pump insertion, removed in 2014 S/P left knee arthroscopy Hx of oophorectomy 1980---right lower quadrant incision-right ovary and appendix were removed when she presented with pain to the emergency room S/P hysterectomy 1985--vaginal hysterectomy with left oophorectomy performed for a uterine mass she was told that there was no cancer but there were some abnormal cells and it was recommended that she have chemotherapy for 6 weeks however she did only 2 weeks and then did not finish the rest of treatment. S/P tonsillectomy and adenoidectomy As a child S/P cholecystectomy Laparoscopic procedure performed in 1992 Family History Mother Heart disease Hypertension Ovarian cancer Diagnosed at age 34 Suicide Thyroid disease Uterine cancer Diagnosed at age 34, unsure of origin Father Heart disease Thyroid disease Sister Thyroid disease Family/Other Thyroid disease [place], granddaughter Other Diabetes Social History Smoking and tobacco/nicotine status: former use of tobacco/nicotine Quit status (tobacco/nicotine): has quit using Second hand smoke exposure: No Alcohol intake: former Substance/Drug Use: never Adopted: No Caregiver/support person: No Lives independently: Yes Housing: House Marital status: Number of children: 2 Highest education level completed: Associate Degree: Occupational, Technical, Vocational Program service: Yes Pets and animals: Yes Sexually active: Yes Do you think of yourself as: Straight/Heterosexual Gricel/Sabianist: Baptist Special gricel needs: No Agree to transfusion: No Physical Exam Const: COMMON NORMALS: no acute distress, patient oriented x3, no limitations, alert and well nourished GENERAL APPEARANCE: cooperative and comfortable NUTRITIONAL APPEARANCE: obese (BMI 39.6) centrally obese HENMT: COMMON NORMALS: normocephalic and atraumatic HEAD & SCALP: normocephalic and atraumatic Eye: COMMON NORMALS: Equal, round and reactive pupils present, EOMs intact bilaterally and conjunctivae normal CONJUNCTIVA: Yes conjunctivae normal PUPIL: Yes Equal, round and reactive pupils present Neck/C-Spine: COMMON NORMALS: full ROM and no lymphadenopathy Chest: COMMONS NORMALS: normal inspection of the chest Resp: COMMON NORMALS: normal respiratory effort, No use of accessory muscles and clear to auscultation bilaterally EFFORT & INSPECTION: Yes able to speak in complete sentences AUSCULTATION: clear to auscultation bilaterally Cardio: COMMON NORMALS: regular rate, regular rhythm, S1 normal heart sound present and S2 normal heart sound present RATE: regular rate RHYTHM: regular rhythm HEART SOUNDS: S1 normal heart sound present and S2 normal heart sound present Extremity: COMMON NORMALS: full ROM, capillary refill normal and no joint enlargement GENERAL: Yes normal exam except as noted RIGHT LOWER EXTREMITY: Yes lower leg Right lower leg: Yes inspection (erythema/edema R anterior lower leg where she struck knee), Yes palpation (TTP to posterior aspect of calf; firm, possible palpable cord), Yes neurovascular exam (normal) and Yes special tests Right lower leg special tests: Priti's sign: Positive Neuro: COMMON NORMALS: patient oriented x3, moves all extremities, no focal motor deficits and no sensory deficits noted SENSORIUM/ORIENTATION: Yes alert MOTOR EXAM: 5/5 motor strength present throughout Course Vital Signs: Vital signs: Vital Signs Temperature 98.1 F 10/01/24 10:24 Pulse Rate 87 10/01/24 10:24 Respiratory Rate 18 10/01/24 10:24 Blood Pressure 107/81 10/01/24 10:24 Pulse Oximetry 98 10/01/24 10:24 Oxygen Delivery Me thod Room Air 10/01/24 10:24 MDM - Extremity (Nontraumatic) Medical Decision Making US imaging negative for DVT. Patient clinically appears in no acute distress. Her vital signs are stable. At this time we will expand antibiotic coverage. [facility] Return ED precautions discussed. Medical Records I reviewed the patient's medical records. XR interpretation done by ED provider, pending radiology final review (per Gus Rubio tech-negative for DVT) Discharge Plan Discharge Patient Disposition: Home Clinical Impression: Cellulitis of right anterior lower leg Condition: Stable Prescriptions: New sulfamethoxazole-trimethoprim [Bactrim DS] 800-160 mg tablet 2 tab PO BID 7 Days Qty: 28 0RF No Action prazosin 2 mg capsule 8 mg PO BEDTIME albuterol sulfate [Ventolin HFA] 90 mcg/actuation HFA aerosol inhaler 2 puff inhalation Q6H PRN (Reason: shortness of breath or wheezing) Qty: 8.5 0RF cyproheptadine 4 mg tablet 4 mg PO BEDTIME isosorbide dinitrate 30 mg Tablet 30 mg PO BID Rx Instructions: allow nitrate-free interval of 12-14 hrs per 24-hr period pregabalin [Lyrica] 300 mg Capsule 300 mg PO BID omeprazole 20 mg capsule,delayed release(DR/EC) 20 mg PO BID Eliquis 5 mg Tablet 5 mg PO BID oxybutynin chloride 5 mg tablet 10 mg PO DAILY prochlorperazine maleate 10 mg tablet 10 mg PO DAILY PRN (Reason: Nausea) methocarbamol 750 mg tablet 750 mg PO TID PRN (Reason: Spasms) cephalexin 500 mg capsule 500 mg PO TID Discharge Orders: Discharge ED (Routine); Ordered 10/01/24 Ordered By: Kesha Schilling Referrals: Anju Taveras FNP [Primary Care Provider, Nurse Practitioner] Activity Restrictions/Additional Instructions: As we discussed, ultrasound imaging of your right lower extremity was negative for DVT. [facility]. You may return to the emergency department at anytime for worsening pain, swelling, redness, fevers, generally feeling worse or unwell, or any other concerns you may have. I hope you begin to feel better soon. Print Language: Moroccan Coding Level of Care Code ED [facility] Advocate for Stefany Morales
--- NOTE | 2024-10-01 11:20 | PC.PHAR ---
[facility] is [facility] 11:15am-Pt does know her medications and did verify them. I will follow up when [facility] responds.
== END 2024-10-01 12:32 | disposition home or self-care (01) ==
PROVIDERS: Emergency Provider Physician Assistant; PCP Nurse Practitioner
DX: L03.115 Cellulitis of right lower limb (principal); Z79.01 Long term (current) use of anticoagulants; Z87.891 Personal history of nicotine dependence; I10 Essential (primary) hypertension; I25.10 Atherosclerotic heart disease of native coronary artery without angina pectoris; E11.40 Type 2 diabetes mellitus with diabetic neuropathy, unspecified
CPT/HCPCS: 93971; 99284

== ENCOUNTER 2024-10-16 11:31 | Observation (INO) | payer OTHER, SELFPAY ==
--- NOTE | 2024-10-16 11:58 | ECG_ITS ---
[facility] Test Date: 2024-10-16 Pat Name: Randi Kay Department: Room: Gender: Female Office Inspector: : 1960 Requested By: Tomy Alfredo Order Number: [id number] Estrella MD: Gayathri Buchanan M.D. Measurements Intervals [place] Rate: 59 P: 10 HI: 150 QRS: -53 QRSD: 149 T: -10 QT: 435 QTc: 433 Interpretive Statements SINUS BRADYCARDIA RIGHT BUNDLE BRANCH BLOCK [120+ ms QRS DURATION, UPRIGHT V1, 40+ ms S IN I/aVL/V4/V5/V6] LEFT ANTERIOR FASCICULAR BLOCK [QRS AXIS <= -45, QR IN I, RS IN II] POSSIBLE ANTERIOR MYOCARDIAL INFARCTION , OF INDETERMINATE AGE [30 ms Q WAVE IN V3/V4, OR R < 0.2 mV IN V4] Compared to ECG 07/26/2024 13:41:51 Myocardial infarct finding now present Sinus rhythm no longer present Electronically Signed On 10-17-2024 18:08:55 CDT by Gayathri Buchanan M.D. [id number]
[2024-10-16 12:00] VITALS: BP 117/69; PULSE 70; RESP 16; TEMP 36.7; O2SAT 98
--- NOTE | 2024-10-16 14:58 | W.ED.DIZZY ---
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 Patient has had gastric bypass within the last year. No chest pain no abdominal pain no recent vomiting or diarrhea no dysuria urgency or frequency Associated symptoms: Denies chest pain or chills Related Data Home Medications ?Medication ?Instructions ?Recorded ?Confirmed prazosin 2 mg capsule 8 mg PO BEDTIME 10/18/21 10/16/24 pregabalin 300 mg capsule (Lyrica) 300 mg PO BID 06/17/22 10/16/24 cyproheptadine 4 mg tablet 4 mg PO BEDTIME 08/11/23 10/16/24 apixaban 5 mg tablet (Eliquis) 5 mg PO BID 07/18/24 10/16/24 omeprazole 20 mg capsule,delayed 20 mg PO BID 07/18/24 10/16/24 release isosorbide dinitrate 30 mg tablet 30 mg PO BID 07/26/24 10/16/24 oxybutynin chloride 5 mg tablet 10 mg PO DAILY 08/21/24 10/16/24 methocarbamol 750 mg tablet 750 mg PO TID PRN Spasms 10/01/24 10/16/24 prochlorperazine maleate 10 mg 10 mg PO DAILY PRN Nausea 10/01/24 10/16/24 tablet hydrocodone 5 mg-acetaminophen 325 1 tab PO Q12H PRN Pain 10/16/24 10/16/24 mg tablet Previous Rx's ?Medication ?Instructions ?Recorded albuterol sulfate 90 mcg/actuation 2 puff inhalation Q6H PRN 01/04/23 aerosol inhaler (Ventolin HFA) shortness of breath or wheezing #8.5 grams Allergies Allergy/AdvReac Type Severity Reaction Status Date / Time ondansetron (From Zofran) Allergy Severe Dystonia Verified 08/21/24 14:24 bee venom protein (honey bee) Allergy anaphylaxis Verified 08/21/24 14:24 Influenza Virus Vaccines Allergy anaphylacti Verified 08/21/24 14:24 c mushroom Allergy anaphylaxis Verified 08/21/24 14:24 tetracycline Allergy Rash, Verified 08/21/24 14:24 shortness of breath trazodone Allergy Rash, Verified 08/21/24 14:24 trouble breathing vaccines Allergy ALGY-Anaphy Uncoded 10/16/24 22:46 laxis Review of Systems Const: Denies: fever(s) or chills Card: Denies: chest pain Resp: Denies: dyspnea GI: Denies: abdominal pain : Denies: dysuria, urinary frequency or urinary urgency Musc: Denies: neck pain or back pain Skin/Breast: Denies: rash PFSH ED PFSH: Medical History Tear of medial meniscus of left knee, current Renal failure Left knee pain No pertinent past medical history NegHx: thyroid, dvt/pe PCP: Tania Gastroparesis Prinzmetal angina Metatarsalgia of both feet Post traumatic stress disorder (PTSD) Hyperlipidemia Coronary 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 Takes Lyrica for the neuropathy. Does take hydrocodone as needed for pain. GERD (gastroesophageal reflux disease) Controlled on medication Anxiety and depression Diagnosed in the and controlled well on medication at this time managed by primary care provider nurse practitioner Nitin. Hypertension Diagnosed in 2018 managed by primary care provider nurse practitioner Nitin Surgical History H/O esophagogastroduodenoscopy (09/01/21) History of coronary angiogram 06/2021 and 05/2022 History of surgery neck lipoma removal- S/P appendectomy 1980-right lower quadrant incision, right ovary and appendix were removed. Hx of breast surgery ductectomy from the left breast done in her late 30s S/P tubal ligation 1982-immediately . History of back surgery Pain pump insertion, removed in 2014 S/P left knee arthroscopy Hx of oophorectomy 1980---right lower quadrant incision-right ovary and appendix were removed when she presented with pain to the emergency room S/P hysterectomy 1985--vaginal hysterectomy with left oophorectomy performed for a uterine mass she was told that there was no cancer but there were some abnormal cells and it was recommended that she have chemotherapy for 6 weeks however she did only 2 weeks and then did not finish the rest of treatment. S/P tonsillectomy and adenoidectomy As a child S/P cholecystectomy Laparoscopic procedure performed in 1992 Family History Mother Heart disease Hypertension Ovarian cancer Diagnosed at age 34 Suicide Thyroid disease Uterine cancer Diagnosed at age 34, unsure of origin Father Heart disease Thyroid disease Sister Thyroid disease Family/Other Thyroid disease [place], granddaughter Other Diabetes Social History Smoking and tobacco/nicotine status: former use of tobacco/nicotine Quit status (tobacco/nicotine): has quit using Second hand smoke exposure: No Alcohol intake: former Substance/Drug Use: never Adopted: No Caregiver/support person: No Lives independently: Yes Housing: House Marital status: Number of children: 2 Highest education level completed: Associate Degree: Occupational, Technical, Vocational Program service: Yes Pets and animals: Yes Sexually active: Yes Do you think of yourself as: Straight/Heterosexual Gricel/Mandaen: Holiness Special gricel needs: No Agree to transfusion: No Physical Exam Const: GENERAL APPEARANCE: cooperative ORIENTATION/CONSCIOUSNESS: Yes awake, Yes oriented to person, Yes oriented to place and Yes oriented to time HENMT: COMMON NORMALS: normocephalic, atraumatic and hearing grossly normal bilaterally HEAD & SCALP: normocephalic and atraumatic Resp: COMMON NORMALS: normal respiratory effort, No retractions, No use of accessory muscles and clear to auscultation bilaterally AUSCULTATION: clear to auscultation bilaterally Cardio: COMMON NORMALS: regular rate, regular rhythm and No murmurs present (Cardio) RATE: regular rate RHYTHM: regular rhythm GI: COMMON NORMALS: Soft to palpation and No hepatosplenomegaly present AUSCULTATION: Yes normoactive bowel sounds PALPATION: Yes Soft to palpation, No Tenderness to palpation present (GI), No Guarding due to palpation present (GI) and Yes No hepatosplenomegaly present Extremity: COMMON NORMALS: normal to inspection, capillary refill normal, no clubbing, cyanosis or edema, no calf tenderness and no pedal edema Neuro: SENSORIUM/ORIENTATION: Yes oriented to person, Yes oriented to place and Yes oriented to time Skin: COMMON NORMALS: no rashes or lesions noted GENERAL SKIN EXAM: no rashes or lesions noted Course Vital Signs: Vital signs: Vital Signs Temperature 98.2 F 10/17/24 04:00 Pulse Rate 68 10/17/24 04:00 Respiratory Rate 17 10/17/24 04:00 Blood Pressure 124/76 10/17/24 04:00 Pulse Oximetry 95 10/17/24 04:00 Oxygen Delivery Me thod Room Air 10/16/24 22:55 MDM - Dizziness Medical Decision Making Care signed out to Dr. alfredo at change of shift. See final notes for diagnosis and disposition. Care assumed from Dr. Ball for evaluation of the patient with dizziness. CMP and UA are pending. CMP demonstrates significant hypokalemia. Case discussed with the hospitalist who agreed the patient should be admitted. Lab Data 10/16/24 15:55 10/16/24 15:[address] 10/16/24 15:15 IMPRESSION: No acute intracranial abnormality. If symptoms persist, consider further evaluation with MRI, if there are no contraindications to obtaining a MRI scan. Laboratory Results WBC 8.35 10^3/uL (3.29-11.43) 10/16/24 15:55 RBC 4.08 10^6/uL (3.85-5.65) 10/16/24 15:55 Hgb 12.30 g/dL (11.27-16.99) 10/16/24 15:55 Hct 38.2 % (36-47) 10/16/24 15:55 MCV 93.6 fl (85-98) 10/16/24 15:55 MCH 30.1 pg (27-33) 10/16/24 15:55 MCHC 32.2 g/dL (30-55) 10/16/24 15:55 RDW 14.3 % (12.1-15.1) 10/16/24 15:55 Plt Count 168 10^3/cmm (157-399) 10/16/24 15:55 MPV 12.0 fL (7.4-10.4) H 10/16/24 15:55 Neut % (Auto) 47.1 % 10/16/24 15:55 Lymph % (Auto) 40.1 % 10/16/24 15:55 [place] % (Auto) 9.0 % 10/16/24 15:55 Eos % (Auto) 3.0 % 10/16/24 15:55 Baso % (Auto) 0.7 % 10/16/24 15:55 Neut # (Auto) 3.93 10^3/uL (1.8-7.7) 10/16/24 15:55 Lymph # (Auto) 3.4 10^3/uL (0.8-4.8) 10/16/24 15:55 [place] # (Auto) 0.8 10^3/uL (0.2-0.9) 10/16/24 15:55 Eos # (Auto) 0.3 10^3/uL (0.0-0.8) 10/16/24 15:55 Baso # (Auto) 0.1 10^3/uL (0.0-0.1) 10/16/24 15:55 Nucleated RBC % (auto) 0 % 10/16/24 15:55 Nucleated RBCs # 0.0 /100WBC 10/16/24 15:55 Sodium 142 mmol/L (136-145) 10/16/24 15:55 Potassium 2.9 mmol/L (3.5-5.1) L 10/16/24 15:55 Chloride 109 mmol/L (98-107) H 10/16/24 15:55 Carbon Dioxide 20 mmol/L (22-29) L 10/16/24 15:55 Anion Gap 15.9 (5-19) 10/16/24 15:55 BUN 8 mg/dL (8-23) 10/16/24 15:55 Creatinine 0.6 mg/dL (0.5-0.9) 10/16/24 15:55 GFR Calculation 101.3 mL/min (90-130) 10/16/24 15:55 Glucose 80 mg/dL (65-115) 10/16/24 15:55 Calculated Osmolality 291 mOsm/kg (285-295) 10/16/24 15:55 Calcium 8.8 mg/dL (8.5-10.5) 10/16/24 15:55 Magnesium 1.9 mg/dL (1.7-2.3) 10/16/24 15:55 Total Bilirubin 0.5 mg/dL (0.15-1.2) 10/16/24 15:55 AST 73 U/L (0-32) H 10/16/24 15:55 ALT 39 U/L (0-33) H 10/16/24 15:55 Alkaline Phosphatase 76 U/L (35-105) 10/16/24 15:55 Total Protein 6.2 g/dL (6.6-8.7) L 10/16/24 15:55 Albumin 3.2 g/dL (3.5-5.2) L 10/16/24 15:55 Globulin 3.0 g/dL (1.3-4.6) 10/16/24 15:55 Urine Color Yellow (Yellow) 10/16/24 16:30 Urine Appearance Clear (CLEAR) 10/16/24 16:30 Urine pH 6.5 (5-7) 10/16/24 16:30 Ur Specific [place] 1.005 (1.005-1.030) 10/16/24 16:30 Urine Protein Negative (Negative) 10/16/24 16:30 Urine Glucose (UA) Negative (Normal) 10/16/24 16:30 Urine Ketones Negative (Negative) 10/16/24 16:30 Urine Blood Negative (Negative) 10/16/24 16:30 Urine Nitrate Negative (Negative) 10/16/24 16:30 Urine Bilirubin Negative (Negative) 10/16/24 16:30 Urine Urobilinogen 0.2 mg/dL (Negative) 10/16/24 16:30 Ur Leukocyte Esterase Negative (Negative) 10/16/24 16:30 Urine RBC 0-2 /hpf (0-2) 10/16/24 16:30 Urine WBC 0-5 /hpf (0-5) 10/16/24 16:30 Ur Squamous Epith Cells 0-5 /hpf (0-5) 10/16/24 16:30 Amorphous Sediment Not Reportable 10/16/24 16:30 Urine Bacteria None seen /hpf (NONE) 10/16/24 16:30 Hyaline Casts 0-4 /lpf H 10/16/24 16:30 Discharge Plan Discharge Patient Disposition: Placed in Observation Admit Provider: Shantel Kumar Clinical Impression: Dizziness and giddiness, Acute hypokalemia Coding Level of Care Code ED Plant Engineering Supervisor for Chg Fwd Documented by User: Tomy Alfredo DO 10/16/24 21:43 HPI - Dizziness General: Chief Complaint: Dizziness Stated Complaint: dizzy Time Seen by Provider: 10/16/24 14:48 Related Data Home Medications ?Medication ?Instructions ?Recorded ?Confirmed prazosin 2 mg capsule 8 mg PO BEDTIME 10/18/21 10/16/24 pregabalin 300 mg capsule (Lyrica) 300 mg PO BID 06/17/22 10/16/24 cyproheptadine 4 mg tablet 4 mg PO BEDTIME 08/11/23 10/16/24 apixaban 5 mg tablet (Eliquis) 5 mg PO BID 07/18/24 10/16/24 omeprazole 20 mg capsule,delayed 20 mg PO BID 07/18/24 10/16/24 release isosorbide dinitrate 30 mg tablet 30 mg PO BID 07/26/24 10/16/24 oxybutynin chloride 5 mg tablet 10 mg PO DAILY 08/21/24 10/16/24 methocarbamol 750 mg tablet 750 mg PO TID PRN Spasms 10/01/24 10/16/24 prochlorperazine maleate 10 mg 10 mg PO DAILY PRN Nausea 10/01/24 10/16/24 tablet hydrocodone 5 mg-acetaminophen 325 1 tab PO Q12H PRN Pain 10/16/24 10/16/24 mg tablet Previous Rx's ?Medication ?Instructions ?Recorded albuterol sulfate 90 mcg/actuation 2 puff inhalation Q6H PRN 01/04/23 aerosol inhaler (Ventolin HFA) shortness of breath or wheezing #8.5 grams Allergies Allergy/AdvReac Type Severity Reaction Status Date / Time ondansetron (From Zofran) Allergy Severe Dystonia Verified 08/21/24 14:24 bee venom protein (honey bee) Allergy anaphylaxis Verified 08/21/24 14:24 Influenza Virus Vaccines Allergy anaphylacti Verified 08/21/24 14:24 c mushroom Allergy anaphylaxis Verified 08/21/24 14:24 tetracycline Allergy Rash, Verified 08/21/24 14:24 shortness of breath trazodone Allergy Rash, Verified 08/21/24 14:24 trouble breathing vaccines Allergy ALGY-Anaphy Uncoded 10/16/24 22:46 laxis PFSH ED PFSH: Medical History Tear of medial meniscus of left knee, current Renal failure Left knee pain No pertinent past medical history NegHx: thyroid, dvt/pe PCP: Tania Gastroparesis Prinzmetal angina Metatarsalgia of both feet Post traumatic stress disorder (PTSD) Hyperlipidemia Coronary 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 Takes Lyrica for the neuropathy. Does take hydrocodone as needed for pain. GERD (gastroesophageal reflux disease) Controlled on medication Anxiety and depression Diagnosed in the and controlled well on medication at this time managed by primary care provider nurse jami Taveras. Hypertension Diagnosed in 2017 managed by primary care provider nurse jami Taveras Surgical History H/O esophagogastroduodenoscopy (09/01/21) History of coronary angiogram 06/2021 and 05/2022 History of surgery neck lipoma removal- S/P appendectomy 1980-right lower quadrant incision, right ovary and appendix were removed. Hx of breast surgery ductectomy from the left breast done in her late 30s S/P tubal ligation 1982-immediately . History of back surgery Pain pump insertion, removed in 2014 S/P left knee arthroscopy Hx of oophorectomy 1980---right lower quadrant incision-right ovary and appendix were removed when she presented with pain to the emergency room S/P hysterectomy 1985--vaginal hysterectomy with left oophorectomy performed for a uterine mass she was told that there was no cancer but there were some abnormal cells and it was recommended that she have chemotherapy for 6 weeks however she did only 2 weeks and then did not finish the rest of treatment. S/P tonsillectomy and adenoidectomy As a child S/P cholecystectomy Laparoscopic procedure performed in 1992 Family History Mother Heart disease Hypertension Ovarian cancer Diagnosed at age 34 Suicide Thyroid disease Uterine cancer Diagnosed at age 34, unsure of origin Father Heart disease Thyroid disease Sister Thyroid disease Family/Other Thyroid disease [place], granddaughter Other Diabetes Social History Smoking and tobacco/nicotine status: former use of tobacco/nicotine Quit status (tobacco/nicotine): has quit using Second hand smoke exposure: No Alcohol intake: former Substance/Drug Use: never Adopted: No Caregiver/support person: No Lives independently: Yes Housing: House Marital status: Number of children: 2 Highest education level completed: Associate Degree: Occupational, Technical, Vocational Program service: Yes Pets and animals: Yes Sexually active: Yes Do you think of yourself as: Straight/Heterosexual Gricel/Mandaen: Holiness Special gricel needs: No Agree to transfusion: No Course Vital Signs: Vital signs: Vital Signs Temperature 98.2 F 10/17/24 04:00 Pulse Rate 68 10/17/24 04:00 Respiratory Rate 17 10/17/24 04:00 Blood Pressure 124/76 10/17/24 04:00 Pulse Oximetry 95 10/17/24 04:00 Oxygen Delivery Me thod Room Air 10/16/24 22:55 MDM - Dizziness Medical Decision Making Care assumed from Dr. Ball for evaluation of the patient with dizziness. CMP and UA are pending. CMP demonstrates significant hypokalemia. Case discussed with the hospitalist who agreed the patient should be admitted. Lab Data 10/16/24 15:55 10/16/24 15:[address] 10/16/24 15:15 IMPRESSION: No acute intracranial abnormality. If symptoms persist, consider further evaluation with MRI, if there are no contraindications to obtaining a MRI scan. Laboratory Results WBC 8.35 10^3/uL (3.29-11.43) 10/16/24 15:55 RBC 4.08 10^6/uL (3.85-5.65) 10/16/24 15:55 Hgb 12.30 g/dL (11.27-16.99) 10/16/24 15:55 Hct 38.2 % (36-47) 10/16/24 15:55 MCV 93.6 fl (85-98) 10/16/24 15:55 MCH 30.1 pg (27-33) 10/16/24 15:55 MCHC 32.2 g/dL (30-55) 10/16/24 15:55 RDW 14.3 % (12.1-15.1) 10/16/24 15:55 Plt Count 168 10^3/cmm (157-399) 10/16/24 15:55 MPV 12.0 fL (7.4-10.4) H 10/16/24 15:55 Neut % (Auto) 47.1 % 10/16/24 15:55 Lymph % (Auto) 40.1 % 10/16/24 15:55 [place] % (Auto) 9.0 % 10/16/24 15:55 Eos % (Auto) 3.0 % 10/16/24 15:55 Baso % (Auto) 0.7 % 10/16/24 15:55 Neut # (Auto) 3.93 10^3/uL (1.8-7.7) 10/16/24 15:55 Lymph # (Auto) 3.4 10^3/uL (0.8-4.8) 10/16/24 15:55 [place] # (Auto) 0.8 10^3/uL (0.2-0.9) 10/16/24 15:55 Eos # (Auto) 0.3 10^3/uL (0.0-0.8) 10/16/24 15:55 Baso # (Auto) 0.1 10^3/uL (0.0-0.1) 10/16/24 15:55 Nucleated RBC % (auto) 0 % 10/16/24 15:55 Nucleated RBCs # 0.0 /100WBC 10/16/24 15:55 Sodium 142 mmol/L (136-145) 10/16/24 15:55 Potassium 2.9 mmol/L (3.5-5.1) L 10/16/24 15:55 Chloride 109 mmol/L (98-107) H 10/16/24 15:55 Carbon Dioxide 20 mmol/L (22-29) L 10/16/24 15:55 Anion Gap 15.9 (5-19) 10/16/24 15:55 BUN 8 mg/dL (8-23) 10/16/24 15:55 Creatinine 0.6 mg/dL (0.5-0.9) 10/16/24 15:55 GFR Calculation 101.3 mL/min (90-130) 10/16/24 15:55 Glucose 80 mg/dL (65-115) 10/16/24 15:55 Calculated Osmolality 291 mOsm/kg (285-295) 10/16/24 15:55 Calcium 8.8 mg/dL (8.5-10.5) 10/16/24 15:55 Magnesium 1.9 mg/dL (1.7-2.3) 10/16/24 15:55 Total Bilirubin 0.5 mg/dL (0.15-1.2) 10/16/24 15:55 AST 73 U/L (0-32) H 10/16/24 15:55 ALT 39 U/L (0-33) H 10/16/24 15:55 Alkaline Phosphatase 76 U/L (35-105) 10/16/24 15:55 Total Protein 6.2 g/dL (6.6-8.7) L 10/16/24 15:55 Albumin 3.2 g/dL (3.5-5.2) L 10/16/24 15:55 Globulin 3.0 g/dL (1.3-4.6) 10/16/24 15:55 Urine Color Yellow (Yellow) 10/16/24 16:30 Urine Appearance Clear (CLEAR) 10/16/24 16:30 Urine pH 6.5 (5-7) 10/16/24 16:30 Ur Specific [place] 1.005 (1.005-1.030) 10/16/24 16:30 Urine Protein Negative (Negative) 10/16/24 16:30 Urine Glucose (UA) Negative (Normal) 10/16/24 16:30 Urine Ketones Negative (Negative) 10/16/24 16:30 Urine Blood Negative (Negative) 10/16/24 16:30 Urine Nitrate Negative (Negative) 10/16/24 16:30 Urine Bilirubin Negative (Negative) 10/16/24 16:30 Urine Urobilinogen 0.2 mg/dL (Negative) 10/16/24 16:30 Ur Leukocyte Esterase Negative (Negative) 10/16/24 16:30 Urine RBC 0-2 /hpf (0-2) 10/16/24 16:30 Urine WBC 0-5 /hpf (0-5) 10/16/24 16:30 Ur Squamous Epith Cells 0-5 /hpf (0-5) 10/16/24 16:30 Amorphous Sediment Not Reportable 10/16/24 16:30 Urine Bacteria None seen /hpf (NONE) 10/16/24 16:30 Hyaline Casts 0-4 /lpf H 10/16/24 16:30 All radiology interpretation(s) finalized by discharge Discharge Plan Discharge Patient Disposition: Placed in Observation Admit Provider: Shantel Kumar Clinical Impression: Dizziness and giddiness, Acute hypokalemia Coding Level of Care Code ED Plant Engineering Supervisor for Stefany Morales
--- NOTE | 2024-10-16 15:15 | CTR_ITS ---
PROCEDURE INFORMATION: Exam: CT Head Without Contrast Exam date and time: 10/16/2024 3:22 PM Age: 64 years old Clinical indication: Pain; Dizziness; Headache; Additional info: Headache dizziness TECHNIQUE: Imaging protocol: Computed tomography of the head without contrast. Radiation optimization: All CT scans at this facility use at least one of these dose optimization techniques: automated exposure control; mA and/or kV adjustment per patient size (includes targeted exams where dose is matched to clinical indication); or iterative reconstruction. COMPARISON: CT head wo con* [id number] 07/05/2024 9:58 AM RADIATION DOSE METRICS: Total DLP (mGy-cm): 1054.54 FINDINGS: Brain: Mild nonspecific white matter low attenuation which may be related to microvascular ischemic changes. No acute confluent lobar ischemic infarct. No acute intracranial hemorrhage. Cerebral ventricles: The ventricles and sulci are prominent in size compatible with mild atrophy. Paranasal sinuses: No fluid levels. Mastoid air cells: Visualized mastoid air cells are well aerated. Bones: No acute calvarial fracture. Soft tissues: Visualized soft tissues are unremarkable. CT/CT head wo con* [id number] IMPRESSION: No acute intracranial abnormality. If symptoms persist, consider further evaluation with MRI, if there are no contraindications to obtaining a MRI scan.
[2024-10-16] MEDS: sodium chloride 0.9% 1,000 ML 999 ML IV (16:02)
[2024-10-16 16:03] LABS: Basophils # 0.1 10^3/uL (0.0-0.1); Basophils % 0.7 %; Eosinophils # 0.3 10^3/uL (0.0-0.8); Hematocrit 38.2 % (36-47); Lymphocytes # 3.4 10^3/uL (0.8-4.8); Lymphocytes % 40.1 %; Mean Corpuscular HGB Conc 32.2 g/dL (30-55); Mean Corpuscular Hemoglobin 30.1 pg (27-33); Mean Corpuscular Volume 93.6 fl (85-98); Monocytes # 0.8 10^3/uL (0.2-0.9); Neutrophils # 3.93 10^3/uL (1.8-7.7); Neutrophils % 47.1 %; Nucleated Red Blood Cells % 0 %; Platelet Count 168 10^3/cmm (157-399); Red Blood Count 4.08 10^6/uL (3.85-5.65); Red Cell Distribution Width 14.3 % (12.1-15.1); White Blood Count 8.35 10^3/uL (3.29-11.43)
[2024-10-16 16:31] LABS: Alanine Aminotransferase 39 U/L (0-33); Albumin Level 3.2 g/dL (3.5-5.2); Alkaline Phosphatase 76 U/L (35-105); Anion Gap 15.9 (5-19); Aspartate Amino Transferase 73 U/L (0-32); Blood Urea Nitrogen 8 mg/dL (8-23); Calcium 8.8 mg/dL (8.5-10.5); Carbon Dioxide 20 mmol/L (22-29); Chloride 109 mmol/L (98-107); Creatinine Clr Calc Pharmacy 127.1726; Glomerular Filtration Rate 101.3 mL/min (90-130); Glucose 80 mg/dL (65-115); Osmolality Calculated 291 mOsm/kg (285-295); Sodium 142 mmol/L (136-145); Total Bilirubin 0.5 mg/dL (0.15-1.2); Total Protein 6.2 g/dL (6.6-8.7)
[2024-10-16 16:32] VITALS: BP 130/47; PULSE 47; O2SAT 98
[2024-10-16 16:33] LABS: Potassium 2.9 mmol/L (3.5-5.1)
[2024-10-16 16:44] LABS: Bilirubin Urine Negative (Negative); Blood Urine Negative (Negative); Glucose Urine UA Negative (Normal); Ketones Urine Negative (Negative); Leukocyte Esterase Urine Negative (Negative); Nitrate Urine Negative (Negative); Protein Urine Negative (Negative); Specific Gravity, Urine 1.005 (1.005-1.030); Urine Appearance Clear (CLEAR); Urine Color Yellow (Yellow); Urobilinogen Urine 0.2 mg/dL (Negative); pH Urine 6.5 (5-7)
[2024-10-16 16:47] LABS: Add Urine Microscopic? YES; Bacteria Urine None Seen /hpf; Hyaline Casts Urine 0-4 /lpf; RBC Urine 0-2 /hpf (0-2); Squamous Epithelial Cell Urine 0-5 /hpf (0-5); WBC Urine 0-5 /hpf (0-5)
[2024-10-16 16:58] LABS: Add Urine Culture? No
[2024-10-16 17:31] LABS: Magnesium 1.9 mg/dL (1.7-2.3)
[2024-10-16] MEDS: potassium chloride ER 20 mEq Tablet 40 MEQ PO (17:44)
[2024-10-16] MEDS: lidocaine 1% 5 ML in potassium chloride premix 100 ML 26.25 ML IV (17:45)
--- NOTE | 2024-10-16 17:52 | PC.NURSE ---
SECOND NURSE JESSE CHRISTIANSON, RN VERIFIED K-RIDER AND LIDOCAINE RECONSTITUTION WITH THIS NURSE. RECONSTITUTION LABEL APPLIED TO K-RIDER BAG, LABEL VERIFIED WITH SECOND NURSE JESSE CHRISTIANSON RN.
[2024-10-16 18:49] VITALS: BP 143/83; PULSE 71; O2SAT 96
[2024-10-16 21:26] VITALS: BP 138/89; PULSE 86; RESP 16; O2SAT 98
[2024-10-16 21:32] VITALS: BP 117/89; PULSE 86; RESP 16; O2SAT 98
[2024-10-16 22:36] VITALS: BMI 39.6
[2024-10-17] VITALS (7 sets, daily range): BP systolic 111–143; BP diastolic 61–81; PULSE 66–88; RESP 14–18; TEMP 36.7–36.8; O2SAT 93–99
--- NOTE | 2024-10-17 01:18 | PM.HP ---
Providers/Chief Complaint Admitting Physician: Shantel Kumar MD Primary Care Provider: DELMA Lua Chief Complaint: dizzy History of Present Illness This patient was seen before midnight Randi Kay is a 64 year old female With medical history Significant for recent gastric bypass just 6 months ago for a weight of 350 pounds. Today patient is 250 and had actually lost 100 pounds within 6 months. Since after the gastric bypass patient had been having some dizziness and have seen the consultants for this and he was all due to dehydration. And a lot of times I will electrolyte imbalances such as magnesium and potassium. Patient now is presenting with yet another episode of dizziness and now here in the emergency room potassium 2.9 magnesium 1.6. Potassium is being replaced here in the emergency room and I am replacing magnesium with 4 g for upper limits of normal for magnesium Patient also related to me that she had PE 3 years ago and had now noted yesterday that the CALF left lower extremity . Appeared to be swollen than the right lower extremity but with no pain. And I noted this to be true on my examination. I will at this time will order a Doppler ultrasound of the left lower extremity to rule out DVT. Patient may be given a therapeutic Lovenox while pending studies if studies become negative Lovenox should be discontinued. Patient is for observation stay to replete volume optimize electrolytes and discharge. Patient is encouraged to continue to keep up with volume to avoid overt dehydration. Review of Systems General: Reports: 10 or more systems reviewed and unremarkable except in HPI and below Medications/Allergies Home Medications ?Medication ?Instructions ?Recorded ?Confirmed ?Last Taken ?Type prazosin 2 mg capsule 8 mg PO BEDTIME 10/18/21 10/16/24 10/15/24 History pregabalin 300 mg capsule (Lyrica) 300 mg PO BID 06/17/22 10/16/24 10/16/24 History albuterol sulfate 90 mcg/actuation 2 puff inhalation Q6H PRN 01/04/23 10/16/24 Unknown Rx aerosol inhaler (Ventolin HFA) shortness of breath or wheezing #8.5 grams cyproheptadine 4 mg tablet 4 mg PO BEDTIME 08/11/23 10/16/24 10/15/24 History apixaban 5 mg tablet (Eliquis) 5 mg PO BID 07/18/24 10/16/2425 History omeprazole 20 mg capsule,delayed 20 mg PO BID 07/18/24 10/16/24 10/16/24 History release isosorbide dinitrate 30 mg tablet 30 mg PO BID 07/26/24 10/16/24 10/16/24 History oxybutynin chloride 5 mg tablet 10 mg PO DAILY 08/21/24 10/16/24 10/16/24 History methocarbamol 750 mg tablet 750 mg PO TID PRN Spasms 10/01/24 10/16/24 Unknown History prochlorperazine maleate 10 mg 10 mg PO DAILY PRN Nausea 10/01/24 10/16/24 Unknown History tablet hydrocodone 5 mg-acetaminophen 325 1 tab PO Q12H PRN Pain 10/16/24 10/16/24 Unknown History mg tablet Allergies Allergy/AdvReac Type Severity Reaction Status Date / Time ondansetron (From Zofran) Allergy Severe Dystonia Verified 08/21/24 14:24 bee venom protein (honey bee) Allergy anaphylaxis Verified 08/21/24 14:24 Influenza Virus Vaccines Allergy anaphylacti Verified 08/21/24 14:24 c mushroom Allergy anaphylaxis Verified 08/21/24 14:24 tetracycline Allergy Rash, Verified 08/21/24 14:24 shortness of breath trazodone Allergy Rash, Verified 08/21/24 14:24 trouble breathing vaccines Allergy ALGY-Anaphy Uncoded 10/16/24 22:46 laxis PFSH Acute PFSH: Medical History Tear of medial meniscus of left knee, current Renal failure Left knee pain No pertinent past medical history NegHx: thyroid, dvt/pe PCP: Tania Gastroparesis Prinzmetal angina Metatarsalgia of both feet Post traumatic stress disorder (PTSD) Hyperlipidemia Coronary 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 Takes Lyrica for the neuropathy. Does take hydrocodone as needed for pain. GERD (gastroesophageal reflux disease) Controlled on medication Anxiety and depression Diagnosed in the and controlled well on medication at this time managed by primary care provider nurse jami Taveras. Hypertension Diagnosed in 2018 managed by primary care provider nurse jami Taveras Surgical History H/O esophagogastroduodenoscopy (09/01/21) History of coronary angiogram 06/2021 and 05/2022 History of surgery neck lipoma removal- S/P appendectomy 1980-right lower quadrant incision, right ovary and appendix were removed. Hx of breast surgery ductectomy from the left breast done in her late 30s S/P tubal ligation 1982-immediately . History of back surgery Pain pump insertion, removed in 2014 S/P left knee arthroscopy Hx of oophorectomy 1980---right lower quadrant incision-right ovary and appendix were removed when she presented with pain to the emergency room S/P hysterectomy 1985--vaginal hysterectomy with left oophorectomy performed for a uterine mass she was told that there was no cancer but there were some abnormal cells and it was recommended that she have chemotherapy for 6 weeks however she did only 2 weeks and then did not finish the rest of treatment. S/P tonsillectomy and adenoidectomy As a child S/P cholecystectomy Laparoscopic procedure performed in 1992 Family History Mother Heart disease Hypertension Ovarian cancer Diagnosed at age 34 Suicide Thyroid disease Uterine cancer Diagnosed at age 34, unsure of origin Father Heart disease Thyroid disease Sister Thyroid disease Family/Other Thyroid disease [place], granddaughter Other Diabetes Social History Smoking and tobacco/nicotine status: former use of tobacco/nicotine Quit status (tobacco/nicotine): has quit using Second hand smoke exposure: No Alcohol intake: former Substance/Drug Use: never Adopted: No Caregiver/support person: No Lives independently: Yes Housing: House Marital status: Number of children: 2 Highest education level completed: Associate Degree: Occupational, Technical, Vocational Program service: Yes Pets and animals: Yes Sexually active: Yes Do you think of yourself as: Straight/Heterosexual Gricel/Scientologist: Jain Special gricel needs: No Agree to transfusion: No Vitals/I&O/Wt Last Vital Signs Temp 98.0 F 10/16/24 12:00 Pulse 86 10/16/24 21:32 Resp 16 10/16/24 21:32 BP 117/89 10/16/24 21:32 Pulse Ox 98 10/16/24 21:32 O2 Del Method Room Air 10/16/24 22:55 10/16/24 10/16/24 10/17/24 14:59 22:59 06:59 Intake Total 1105 / 1105 Balance 1105 / 1105 Weight last 48 hrs Weight 114.759 kg Weight 114.759 kg Physical Exam Narrative: Generally patient is in no apparent distress HEENT?normocephalic atraumatic Neck?neck is supple Chest?lungs are clear with good air movement Abdomen?soft nontender nondistended. Obese abdomen with significant pannus from weight loss unremarkable Extremities well with no edema does show slight fullness of the left calf greater than the right with no tenderness or pain Neurology has no focality Data 10/16/24 15:55 10/16/24 15:55 A&P Assessment and plan (1) Acute hypokalemia: -Multiple electrolyte imbalances including hypokalemia is secondary to recent gastric bypass. Hypokalemia Of 2.9 replaced --will follow-up with interval lab studies and more importantly was replaceMENT of magnesium of 1.6 with 4g of magnesium keeping magnesium at the upper limits of normal. (2) Dizziness and giddiness: Dizziness was secondary to dehydration due to gastric bypass patient cannot have enough fluid in her to maintain good volume and this translates into dizziness lightheadedness having some time near syncope. Patient is being rehydrated with normal saline with some potassium in the normal saline to maintain already replaced potassium of 2.9 (3) CAD (coronary artery disease): This is a history of no exacerbation no chest pains (4) Dehydration symptoms: Patient rehydrated with near resolution of symptoms of dizziness (5) Hypomagnesemia: Magnesium of 1.6 replaced with 4 g of magnesium sulfate (6) Calf swelling: obtain Doppler ultrasound of the left lower extremity to rule out DVT This patient has a history of PE not on any anticoagulation at this time and the PE was 3 years ago Placed patient on therapeutic Lovenox till DVT is ruled out and that can be then discontinued PDMP PDMP Reviewed: Not Reviewed Attestations Medical Necessity Statement*: I attest that this patient be observation stay in the hospital for 23 hours in-house to replace electrolytes rehydrate and rule out for DVT. Coding Level of Care Code Acute Code for Chg Fwd High Time for a total of 50 minutes, includes reviewing past or interval history, examining/interviewing patient, placing orders, counseling patient/family/other support, updating patient/family/other support, discussing plan of care with staff, communicating with other healthcare providers, documenting encounter and coordinating care Other Coding Information observation code 81778 Diagnoses Acute hypokalemia E87.6 Dizziness and giddiness R42 CAD (coronary artery disease) I25.10 Dehydration symptoms R63.8 Hypomagnesemia E83.42 Calf swelling M79.89 Time Spent (min) 50
[2024-10-17] MEDS: sodium chlor 0.9% + KCl 20 mEq 20 MEQ/1,000 ML BAG 125 MEQ IV ×3 (01:39→21:39)
[2024-10-17] MEDS: heparin 5,000 unit/mL INJ 1 mL 5000 UNIT SUBCUT (01:39)
[2024-10-17] MEDS: magnesium sulfate premix 2 GM/50 ML PIGGYBACK IV ×2 (03:15→04:34)
--- NOTE | 2024-10-17 05:01 | USCV_ITS ---
Randi Kay Age: 64 Gender: F : 1960 Exam Date: 10/17/2024 10:27 Ordering Phys: Anju Taveras Technologist: Bonifacio Li Exam Location: [facility] [place]_ Indication: swelling lle PROCEDURES: Venous duplex imaging was performed in only the left lower extremity. The following venous structures were evaluated: common femoral vein, profunda vein, proximal portion of the greater saphenous vein, superficial femoral vein, and the popliteal vein. In addition, the posterior tibial and peroneal trunk were evaluated. Serial compression, augmentation maneuvers, and spectral Doppler flow evaluation were performed. FINDINGS: Normal 2-D Doppler and augmentation and compressibility throughout the lower extremity venous structures. Additional imaging through the proximal calf veins also reveals no thrombus. Limited evaluation of the greater saphenous vein is patent with no thrombus. CONCLUSIONS No evidence of left lower extremity DVT. Daryn Pinto MD (Electronically Signed) Final Date: 17 Oct 2024 11:39 S
[2024-10-17] MEDS: pantoprazole DR 40 mg Tablet PO (07:42)
[2024-10-17 09:18] LABS: Basophils # 0.1 10^3/uL (0.0-0.1); Basophils % 1.1 %; Eosinophils # 0.2 10^3/uL (0.0-0.8); Eosinophils % 4.1 %; Hematocrit 40.2 % (36-47); Lymphocytes # 1.7 10^3/uL (0.8-4.8); Lymphocytes % 30.5 %; Mean Corpuscular HGB Conc 31.8 g/dL (30-55); Mean Corpuscular Hemoglobin 30.6 pg (27-33); Mean Corpuscular Volume 96.2 fl (85-98); Mean Platelet Volume 12.7 fL (7.4-10.4); Monocytes # 0.4 10^3/uL (0.2-0.9); Monocytes % 7.6 %; Neutrophils % 56.3 %; Nucleated Red Blood Cells % 0 %; Platelet Count 177 10^3/cmm (157-399); Red Blood Count 4.18 10^6/uL (3.85-5.65); Red Cell Distribution Width 14.3 % (12.1-15.1); White Blood Count 5.67 10^3/uL (3.29-11.43)
[2024-10-17] MEDS: potassium chloride ER 20 mEq Tablet 40 MEQ PO ×4 (09:31→21:39)
[2024-10-17 09:38] LABS: Phosphorus 2.5 mg/dL (2.5-4.5)
[2024-10-17 09:43] LABS: Alanine Aminotransferase 33 U/L (0-33); Albumin Level 2.9 g/dL (3.5-5.2); Alkaline Phosphatase 78 U/L (35-105); Anion Gap 12.7 (5-19); Aspartate Amino Transferase 68 U/L (0-32); Blood Urea Nitrogen 7 mg/dL (8-23); Calcium 8.4 mg/dL (8.5-10.5); Carbon Dioxide 20 mmol/L (22-29); Chloride 112 mmol/L (98-107); Creatinine Clr Calc Pharmacy 109.0051; Globulin 3.1 g/dL (1.3-4.6); Glomerular Filtration Rate 84.8 mL/min (90-130); Glucose 177 mg/dL (65-115); Magnesium 2.3 mg/dL (1.7-2.3); Osmolality Calculated 294 mOsm/kg (285-295); Potassium 3.7 mmol/L (3.5-5.1); Sodium 141 mmol/L (136-145); Total Bilirubin 0.4 mg/dL (0.15-1.2)
[2024-10-17 13:11] LABS: Blood Urea Nitrogen 7 mg/dL (8-23); Calcium 8.4 mg/dL (8.5-10.5); Carbon Dioxide 19 mmol/L (22-29); Chloride 113 mmol/L (98-107); Creatinine Clr Calc Pharmacy 152.6071; Glucose 146 mg/dL (65-115); Magnesium 2.3 mg/dL (1.7-2.3); Osmolality Calculated 299 mOsm/kg (285-295); Sodium 144 mmol/L (136-145)
--- NOTE | 2024-10-17 14:51 | P.PN_ITS ---
Subjective 2 Subjective: 64-year-old female had gastric bypass in February. Since then she has lost just under 100 pounds averaging 3 pounds a week she states that weight has come to a standstill on loss so they recently started her on Ozempic. Patient has chronic hypokalemia and was previously on spironolactone. She states that even prior to her surgery for gastric bypass she had hypokalemia and was on potassium 40 mill colons twice a day lisinopril 10 mg twice daily metoprolol 12.5 mg twice daily and amlodipine 5 mg daily. More recently she has had surgery and is on 20 mill colons twice daily potassium. She came in with potassium 2.9 magnesium 1.6 was lightheaded dizzy and had some muscle cramps and spasm She feels much better now Vitals/I&O/Wt Last Vital Signs Temp 98.3 F 10/17/24 11:42 Pulse 83 10/17/24 14:42 Resp 18 10/17/24 14:42 BP 143/81 10/17/24 11:42 Pulse Ox 99 10/17/24 14:42 O2 Del Method Room Air 10/17/24 14:42 10/16/24 10/17/24 10/17/24 22:59 06:59 14:59 Intake Total 1105 / 1105 100 / 1205 926.25 / 926.25 Balance 1105 / 1105 100 / 1205 926.25 / 926.25 Weight last 48 hrs Weight 114.759 kg Weight 114.759 kg Weight 114.759 kg Physical Exam 2 Narrative: General Well-developed well-nourished obese female in no acute cardiopulmonary stress CV regular rate and rhythm Lungs trace right basilar crackles and completely clear with deep breaths Abdomen positive bowel sounds soft nontender Calves no tenderness. There is trace pretibial edema Data 10/17/24 08:56 10/17/24 12:17 A&P Assessment and plan (1) Acute hypokalemia: Patient had potassium and magnesium replacement but from sounds of her hypokalemia and hypertension prior to surgery she had hyperaldosteronism She was previously on spironolactone but not any longer. Will start at 25 mg twice a day. Potassium was aggressively replaced today we will stop after the 120 mEq of point cutoff to which would be the third dose. Will hold the (2) Dizziness and giddiness: Significantly improved (3) CAD (coronary artery disease): This is a history of no exacerbation no chest pains (4) Dehydration symptoms: Reason (5) Hypomagnesemia: Recheck in a.m. along with phosphorus (6) Calf swelling: Left leg Doppler no clot This patient has a history of PE not on any anticoagulation at this time and the PE was 3 years ago Placed patient on therapeutic Lovenox till DVT is ruled out and that can be then discontinued PDMP PDMP Reviewed: Not Reviewed Attestations 2 Medical Necessity Statement*: Patient remain in the hospital 1 more night anticipate discharge Coding Level of Care Code 14296 Diagnoses Acute hypokalemia E87.6 Dizziness and giddiness R42 CAD (coronary artery disease) I25.10 Dehydration symptoms R63.8 Hypomagnesemia E83.42 Calf swelling M79.89 Time Spent (min) 27
[2024-10-17] MEDS: apixaban 5 mg Tablet PO (17:40)
[2024-10-17] MEDS: pregabalin 150 mg Capsule 300 MG PO (17:40)
[2024-10-17] MEDS: spironolactone 25 mg Tablet PO (17:40)
[2024-10-17] MEDS: isosorbide dinitrate 20 mg Tablet 30 MG PO (17:41)
[2024-10-17] MEDS: prochlorperazine 10 mg/2 mL Inj 5 MG IVP (18:17)
[2024-10-17] MEDS: prazosin 1 mg Capsule 4 MG PO (21:39)
[2024-10-18 00:42] VITALS: BP 96/61; PULSE 81; RESP 15; TEMP 36.5; O2SAT 91
[2024-10-18] MEDS: sodium chlor 0.9% + KCl 20 mEq 20 MEQ/1,000 ML BAG 125 MEQ IV (04:38)
[2024-10-18 05:01] LABS: Anion Gap 10.5 (5-19); Blood Urea Nitrogen 5 mg/dL (8-23); Calcium 8.5 mg/dL (8.5-10.5); Carbon Dioxide 22 mmol/L (22-29); Chloride 116 mmol/L (98-107); Creatinine Clr Calc Pharmacy 127.1726; Glomerular Filtration Rate 101.3 mL/min (90-130); Glucose 86 mg/dL (65-115); Osmolality Calculated 295 mOsm/kg (285-295); Phosphorus 3.5 mg/dL (2.5-4.5); Potassium 4.5 mmol/L (3.5-5.1); Sodium 144 mmol/L (136-145)
[2024-10-18 05:19] VITALS: BP 125/67; PULSE 89; RESP 17; TEMP 36.4; O2SAT 98; BMI 39.6
[2024-10-18] MEDS: spironolactone 25 mg Tablet PO (07:45)
[2024-10-18] MEDS: apixaban 5 mg Tablet PO (07:45)
[2024-10-18] MEDS: oxybutynin 5 mg Tablet 10 MG PO (07:45)
[2024-10-18] MEDS: isosorbide dinitrate 20 mg Tablet 30 MG PO (07:45)
[2024-10-18] MEDS: pregabalin 150 mg Capsule 300 MG PO (07:45)
[2024-10-18] MEDS: pantoprazole DR 40 mg Tablet PO (07:45)
[2024-10-18] MEDS: prochlorperazine 10 mg Tablet PO (07:45)
[2024-10-18 08:42] VITALS: BP 132/82; PULSE 68; RESP 18; TEMP 36.4; O2SAT 97
[2024-10-18 08:55] VITALS: PULSE 89; RESP 16; O2SAT 96
--- NOTE | 2024-10-18 11:41 | P.DS_ITS ---
Discharge Providers Date of Admission: 10/17/24 00:51 Date of Discharge: October 18, 2024 Attending Provider at Admission: Shantel Kumar MD Attending Provider at Discharge: Shantel Kumar MD Primary Care Provider: DELMA Lua Diagnoses at Discharge Discharge Diagnosis (1) Acute hypokalemia: Details from hospital stay: Resolved the patient states her potassium was low and she had been on spironolactone prior to her gastric bypass surgery. Start spironolactone 25 mg twice a day check BMP next week and adjust spironolactone up or down as needed based on the potassium level. Patient is confident that she can do this with her primary care provider Yvette NGUYỄN at the [facility] Status: Acute (2) Dizziness and giddiness: Details from hospital stay: Resolved Status: Acute (3) CAD (coronary artery disease): Details from hospital stay: Chronic and asymptomatic this for Status: Acute (4) Dehydration symptoms: Details from hospital stay: Resolved Status: Acute (5) Hypomagnesemia: Details from hospital stay: Follow-up outpatient potassium was 2.9 but magnesium was only as low as 1.9 based on labs that I see there are reports of it being 1.6 but that is not borne out by the labs that I read Status: Acute (6) Calf swelling: Details from hospital stay: Lower extremity Doppler was negative. Patient has history of PE continue on apixaban Status: Acute Reason for Visit Reason for Visit: dizzy Brief History: Randi Kay is a 64 year old female With medical history Significant for recent gastric bypass just 6 months ago for a weight of 350 pounds. Today patient is 250 and had actually lost 100 pounds within 6 months. Since after the gastric bypass patient had been having some dizziness and have seen the consultants for this and he was all due to dehydration. And a lot of times I will electrolyte imbalances such as magnesium and potassium. Patient now is presenting with yet another episode of dizziness and now here in the emergency room potassium 2.9 magnesium 1.6. Potassium is being replaced here in the em ergency room and I am replacing magnesium with 4 g for upper limits of normal for magnesium Patient also related to me that she had PE 3 years ago and had now noted yesterday that the CALF left lower extremity . Appeared to be swollen than the right lower extremity but with no pain. And I noted this to be true on my examination. I will at this time will order a Doppler ultrasound of the left l ower extremity to rule out DVT. Patient may be given a therapeutic Lovenox while pending studies if studies become negative Lovenox should be discontinued. Patient is for observation stay to replete volume optimize electrolytes and discharge. Patient is encouraged to continue to keep up with volume to avoid overt dehydration. Hospital Course Hospital Course Patient was hydrated and potassium was replaced. Magnesium also replaced 2 g IV but the level I see this admission was 1.9 prior to replace. Potassium was as low as 2.9 and replaced to 4. I put her on spironolactone 25 mg twice a day and potassium this morning 4.5 Patient's symptoms of dizziness weakness cramping all resolved. She has been walking to and from the bathroom and is ready for discharge. She has close follow-up with her nurse practitioner and knows to get her potassium checked next week with spironolactone adjusted as needed Patient has been following essentially a diabetic diet. She tells me that she lost just under 100 pounds since February gastric bypass surgery. She has recently been started on Ozempic Physical Exam Narrative: General Well-developed well-nourished obese female in no acute cardiopulmonary stress CV regular rate and rhythm Lungs trace right basilar crackles and completely clear with deep breaths Abdomen positive bowel sounds soft nontender Calves no tenderness. No edema Discharge Data Studies Completed and Pending Completed Studies During Hospitalization Category Date Time Status CT head wo con* [id number] Stat Cat Scan 10/16/24 15:15 [place] [id number] Routine Ultrasound 10/17/24 05:01 Completed Radiology Impressions Head CT 10/16/24 15:15 IMPRESSION: No acute intracranial abnormality. If symptoms persist, consider further evaluation with MRI, if there are no contraindications to obtaining a MRI scan. Laboratory Results WBC 5.67 10^3/uL (3.29-11.43) 10/17/24 08:56 RBC 4.18 10^6/uL (3.85-5.65) 10/17/24 08:56 Hgb 12.80 g/dL (11.27-16.99) 10/17/24 08:56 Hct 40.2 % (36-47) 10/17/24 08:56 MCV 96.2 fl (85-98) 10/17/24 08:56 MCH 30.6 pg (27-33) 10/17/24 08:56 MCHC 31.8 g/dL (30-55) 10/17/24 08:56 RDW 14.3 % (12.1-15.1) 10/17/24 08:56 Plt Count 177 10^3/cmm (157-399) 10/17/24 08:56 MPV 12.7 fL (7.4-10.4) H 10/17/24 08:56 Neut % (Auto) 56.3 % 10/17/24 08:56 Lymph % (Auto) 30.5 % 10/17/24 08:56 [place] % (Auto) 7.6 % 10/17/24 08:56 Eos % (Auto) 4.1 % 10/17/24 08:56 Baso % (Auto) 1.1 % 10/17/24 08:56 Neut # (Auto) 3.20 10^3/uL (1.8-7.7) 10/17/24 08:56 Lymph # (Auto) 1.7 10^3/uL (0.8-4.8) 10/17/24 08:56 [place] # (Auto) 0.4 10^3/uL (0.2-0.9) 10/17/24 08:56 Eos # (Auto) 0.2 10^3/uL (0.0-0.8) 10/17/24 08:56 Baso # (Auto) 0.1 10^3/uL (0.0-0.1) 10/17/24 08:56 Nucleated RBC % (auto) 0 % 10/17/24 08:56 Nucleated RBCs # 0.0 /100WBC 10/17/24 08:56 Sodium 144 mmol/L (136-145) 10/18/24 04:02 Potassium 4.5 mmol/L (3.5-5.1) 10/18/24 04:02 Chloride 116 mmol/L (98-107) H 10/18/24 04:02 Carbon Dioxide 22 mmol/L (22-29) 10/18/24 04:02 Anion Gap 10.5 (5-19) 10/18/24 04:02 BUN 5 mg/dL (8-23) L 10/18/24 04:02 Creatinine 0.6 mg/dL (0.5-0.9) 10/18/24 04:02 GFR Calculation 101.3 mL/min (90-130) 10/18/24 04:02 Glucose 86 mg/dL (65-115) 10/18/24 04:02 Calculated Osmolality 295 mOsm/kg (285-295) 10/18/24 04:02 Calcium 8.5 mg/dL (8.5-10.5) 10/18/24 04:02 Phosphorus 3.5 mg/dL (2.5-4.5) 10/18/24 04:02 Magnesium 2.0 mg/dL (1.7-2.3) 10/18/24 04:02 Total Bilirubin 0.4 mg/dL (0.15-1.2) 10/17/24 08:56 AST 68 U/L (0-32) H 10/17/24 08:56 ALT 33 U/L (0-33) 10/17/24 08:56 Alkaline Phosphatase 78 U/L (35-105) 10/17/24 08:56 Total Protein 6.0 g/dL (6.6-8.7) L 10/17/24 08:56 Albumin 2.9 g/dL (3.5-5.2) L 10/17/24 08:56 Globulin 3.1 g/dL (1.3-4.6) 10/17/24 08:56 Urine Color Yellow (Yellow) 10/16/24 16:30 Urine Appearance Clear (CLEAR) 10/16/24 16:30 Urine pH 6.5 (5-7) 10/16/24 16:30 Ur Specific [place] 1.005 (1.005-1.030) 10/16/24 16:30 Urine Protein Negative (Negative) 10/16/24 16:30 Urine Glucose (UA) Negative (Normal) 10/16/24 16:30 Urine Ketones Negative (Negative) 10/16/24 16:30 Urine Blood Negative (Negative) 10/16/24 16:30 Urine Nitrate Negative (Negative) 10/16/24 16:30 Urine Bilirubin Negative (Negative) 10/16/24 16:30 Urine Urobilinogen 0.2 mg/dL (Negative) 10/16/24 16:30 Ur Leukocyte Esterase Negative (Negative) 10/16/24 16:30 Urine RBC 0-2 /hpf (0-2) 10/16/24 16:30 Urine WBC 0-5 /hpf (0-5) 10/16/24 16:30 Ur Squamous Epith Cells 0-5 /hpf (0-5) 10/16/24 16:30 Amorphous Sediment Not Reportable 10/16/24 16:30 Urine Bacteria None seen /hpf (NONE) 10/16/24 16:30 Hyaline Casts 0-4 /lpf H 10/16/24 16:30 Vitals Last Vital Signs Temp 97.6 F 10/18/24 08:42 Pulse 89 10/18/24 08:55 Resp 16 10/18/24 08:55 BP 132/82 10/18/24 08:42 Pulse Ox 96 10/18/24 08:55 O2 Del Method Room Air 10/18/24 08:55 Discharge Plan Discharge Patient Disposition: Home Condition: Stable Prescriptions: New spironolactone 25 mg Tablet 25 mg PO BID Qty: 60 0RF Continued prazosin 2 mg capsule 8 mg PO BEDTIME albuterol sulfate [Ventolin HFA] 90 mcg/actuation HFA aerosol inhaler 2 puff inhalation Q6H PRN (Reason: shortness of breath or wheezing) Qty: 8.5 0RF cyproheptadine 4 mg tablet 4 mg PO BEDTIME isosorbide dinitrate 30 mg Tablet 30 mg PO BID Rx Instructions: allow nitrate-free interval of 12-14 hrs per 24-hr period pregabalin [Lyrica] 300 mg Capsule 300 mg PO BID omeprazole 20 mg capsule,delayed release(DR/EC) 20 mg PO BID Eliquis 5 mg Tablet 5 mg PO BID oxybutynin chloride 5 mg tablet 10 mg PO DAILY prochlorperazine maleate 10 mg tablet 10 mg PO DAILY PRN (Reason: Nausea) methocarbamol 750 mg tablet 750 mg PO TID PRN (Reason: Spasms) hydrocodone-acetaminophen 5-325 mg tablet 1 tab PO Q12H MDD 1daily PRN (Reason: Pain) Discharge Orders: Discharge Order (Routine); Ordered 10/18/24 Ordered By: Daryn Mares Referrals: Anju Taveras FNP [Primary Care Provider, Nurse Practitioner] - 10/23/24 1:30 pm Discharge Diet: Diabetic Patient Instructions: Opioid Safety Activity Restrictions/Additional Instructions: Take spironolactone 25 mg twice a day. You need to have your mini panel including your potassium checked next week. If potassium still low would recommend increasing the spironolactone. If potassium is too high lower the spironolactone. Discharge Attestations Time Spent in Discharge Care*: greater than 30 min Status at Discharge: Cognitive status at discharge: cognitively intact , Behavioral status at discharge: cooperative , Quality Metrics Clinical Quality Measures [ No reported AMI, CVA or VTE this stay] Coding Level of Care Code Acute Code for Chg Fwd Diagnoses Acute hypokalemia E87.6 Dizziness and giddiness R42 CAD (coronary artery disease) I25.10 Dehydration symptoms R63.8 Hypomagnesemia E83.42 Calf swelling M79.89
--- NOTE | 2024-10-18 12:44 | PC.NURSE ---
D/C pending ride home.
[2024-10-18 12:47] VITALS: BP 108/62; PULSE 78; RESP 19; TEMP 36.6; O2SAT 98
[2024-10-18 13:07] VITALS: BP 110/64; PULSE 80; O2SAT 99
== END 2024-10-18 13:07 | disposition home or self-care (01) ==
LOC: ER 21:08 → MEDSURG 21:43
PROVIDERS: Family Medicine; Internal Medicine; Admitting Provider Internal Medicine; Emergency Provider General Practice; PCP Nurse Practitioner; Visit Provider Internal Medicine
DX: E87.6 Hypokalemia (principal); R42 Dizziness and giddiness; I25.10 Atherosclerotic heart disease of native coronary artery without angina pectoris; R63.8 Other symptoms and signs concerning food and fluid intake; E83.42 Hypomagnesemia; M79.89 Other specified soft tissue disorders; K21.9 Gastro-esophageal reflux disease without esophagitis; Z79.01 Long term (current) use of anticoagulants; Z98.84 Bariatric surgery status; E78.5 Hyperlipidemia, unspecified; F43.10 Post-traumatic stress disorder, unspecified; E11.40 Type 2 diabetes mellitus with diabetic neuropathy, unspecified; Z82.49 Family history of ischemic heart disease and other diseases of the circulatory system; Z83.3 Family history of diabetes mellitus; Z87.891 Personal history of nicotine dependence; I10 Essential (primary) hypertension; Z86.711 Personal history of pulmonary embolism
CPT/HCPCS: 36415; 70450; 80048; 80053; 81001; 83735; 84100; 85025; 93005; 93971; 96365; 96366; 96367; 96372; 96375; 99285; G0378; J0780; J1644; J3475; J3480; J7030; J9999; Q0164

== ENCOUNTER 2024-10-24 14:11 | Emergency (ER) | payer OTHER, SELFPAY ==
--- NOTE | 2024-10-24 14:15 | ECG_ITS ---
[facility] Test Date: 2024-10-24 Pat Name: Randi Kay Department: Room: Gender: Female Title Checker: : 1960 Requested By: John Coleman Order Number: [id number] Delores MD: Luis A Adair M.D. Measurements Intervals [place] Rate: 77 P: 31 TX: 156 QRS: -54 QRSD: 148 T: 0 QT: 413 QTc: 468 Interpretive Statements SINUS RHYTHM LEFT AXIS DEVIATION [QRS AXIS < -30] RIGHT BUNDLE BRANCH BLOCK [120+ ms QRS DURATION, UPRIGHT V1, 40+ ms S IN I/aVL/V4/V5/V6] POSSIBLE SEPTAL MYOCARDIAL INFARCTION , OF INDETERMINATE AGE [30 ms Q WAVE IN V1/V2] Compared to ECG 10/16/2024 11:58:54 Left-axis deviation now present Sinus bradycardia no longer present Left anterior fascicular block no longer present Myocardial infarct finding still present Electronically Signed On 10-29-2024 11:49:57 CDT by Luis A Adair M.D. [email or web address]
[2024-10-24 14:20] VITALS: BP 126/74; PULSE 75; RESP 16; TEMP 36.7; O2SAT 98; BMI 38.0
[2024-10-24 17:11] VITALS: BP 126/73; PULSE 72; O2SAT 98
[2024-10-24 17:30] VITALS: BP 119/67; PULSE 77; O2SAT 99
[2024-10-24 18:13] LABS: Basophils # 0.1 10^3/uL (0.0-0.1); Basophils % 0.9 %; Eosinophils # 0.5 10^3/uL (0.0-0.8); Eosinophils % 5.8 %; Hematocrit 40.5 % (36-47); Lymphocytes # 3.2 10^3/uL (0.8-4.8); Lymphocytes % 36.2 %; Mean Corpuscular HGB Conc 32.1 g/dL (30-55); Mean Corpuscular Hemoglobin 30.2 pg (27-33); Mean Corpuscular Volume 94.2 fl (85-98); Mean Platelet Volume 11.9 fL (7.4-10.4); Monocytes # 0.8 10^3/uL (0.2-0.9); Monocytes % 9.4 %; Neutrophils # 4.19 10^3/uL (1.8-7.7); Neutrophils % 47.2 %; Nucleated Red Blood Cells % 0 %; Platelet Count 198 10^3/cmm (157-399); Red Cell Distribution Width 13.7 % (12.1-15.1); White Blood Count 8.86 10^3/uL (3.29-11.43)
[2024-10-24 18:30] VITALS: BP 151/70; PULSE 60; O2SAT 100
[2024-10-24 18:34] LABS: Anion Gap 16.9 (5-19); Blood Urea Nitrogen 11 mg/dL (8-23); Calcium 9.1 mg/dL (8.5-10.5); Carbon Dioxide 21 mmol/L (22-29); Chloride 107 mmol/L (98-107); Glomerular Filtration Rate 101.3 mL/min (90-130); Glucose 89 mg/dL (65-115); Magnesium 1.9 mg/dL (1.7-2.3); Osmolality Calculated 291 mOsm/kg (285-295); Potassium 3.9 mmol/L (3.5-5.1); Sodium 141 mmol/L (136-145)
[2024-10-24] MEDS: sodium chloride 0.9% 1,000 ML 999 ML IV (18:36)
[2024-10-24 19:00] VITALS: BP 125/73; PULSE 79; O2SAT 96
[2024-10-24 19:57] VITALS: BP 144/69; PULSE 81; O2SAT 100
--- NOTE | 2024-10-24 21:11 | W.ED.DIZZY ---
HPI - Dizziness General: Chief Complaint: Dizziness Stated Complaint: dizzy, irregular heart rate sent from [place] Time Seen by Provider: 10/24/24 16:35 History of Present Illness: HPI Narrative: This patient is a 64-year-old white female who presents to the emergency department stating that she has been feeling dizzy. She was hospitalized last Monday due to dizziness. At that time she had low potassium and low magnesium. Those were replaced and she states the dizziness resolved. She went to the clinic today for evaluation of the dizziness. She states they noted an irregular heartbeat and recommended she come into the emergency department. Patient is taking potassium 40 mill equivalents twice daily. She does have a past medical history including [id number] diabetes and Prinzmetal's angina. Past surgical history includes gastric bypass. Related Data Home Medications ?Medication ?Instructions ?Recorded ?Confirmed prazosin 2 mg capsule 8 mg PO BEDTIME 10/18/21 10/16/24 pregabalin 300 mg capsule (Lyrica) 300 mg PO BID 06/17/22 10/16/24 cyproheptadine 4 mg tablet 4 mg PO BEDTIME 08/11/23 10/16/24 apixaban 5 mg tablet (Eliquis) 5 mg PO BID 07/18/24 10/16/24 omeprazole 20 mg capsule,delayed 20 mg PO BID 07/18/24 10/16/24 release isosorbide dinitrate 30 mg tablet 30 mg PO BID 07/26/24 10/16/24 oxybutynin chloride 5 mg tablet 10 mg PO DAILY 08/21/24 10/16/24 methocarbamol 750 mg tablet 750 mg PO TID PRN Spasms 10/01/24 10/16/24 prochlorperazine maleate 10 mg 10 mg PO DAILY PRN Nausea 10/01/24 10/16/24 tablet hydrocodone 5 mg-acetaminophen 325 1 tab PO Q12H PRN Pain 10/16/24 10/16/24 mg tablet Previous Rx's ?Medication ?Instructions ?Recorded albuterol sulfate 90 mcg/actuation 2 puff inhalation Q6H PRN 01/04/23 aerosol inhaler (Ventolin HFA) shortness of breath or wheezing #8.5 grams spironolactone 25 mg tablet 25 mg PO BID #60 tabs 10/18/24 meclizine 25 mg tablet 25 mg PO QID PRN dizziness #30 tabs 10/24/24 Allergies Allergy/AdvReac Type Severity Reaction Status Date / Time ondansetron (From Zofran) Allergy Severe Dystonia Verified 08/21/24 14:24 bee venom protein (honey bee) Allergy anaphylaxis Verified 08/21/24 14:24 Influenza Virus Vaccines Allergy anaphylacti Verified 08/21/24 14:24 c mushroom Allergy anaphylaxis Verified 08/21/24 14:24 tetracycline Allergy Rash, Verified 08/21/24 14:24 shortness of breath trazodone Allergy Rash, Verified 08/21/24 14:24 trouble breathing vaccines Allergy ALGY-Anaphy Uncoded 10/16/24 22:46 laxis Review of Systems General: Reports: 10 or more systems reviewed and unremarkable except in HPI and below Neuro: Reports: dizziness PFSH ED PFSH: Medical History Tear of medial meniscus of left knee, current Renal failure Left knee pain No pertinent past medical history NegHx: thyroid, dvt/pe PCP: Tania Gastroparesis Prinzmetal angina Metatarsalgia of both feet Post traumatic stress disorder (PTSD) Hyperlipidemia Coronary 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 Takes Lyrica for the neuropathy. Does take hydrocodone as needed for pain. GERD (gastroesophageal reflux disease) Controlled on medication Anxiety and depression Diagnosed in the and controlled well on medication at this time managed by primary care provider nurse jami Taveras. Hypertension Diagnosed in 2018 managed by primary care provider nurse practitioner Nitin Surgical History H/O esophagogastroduodenoscopy (09/01/21) History of coronary angiogram 06/2021 and 05/2022 History of surgery neck lipoma removal- S/P appendectomy 1980-right lower quadrant incision, right ovary and appendix were removed. Hx of breast surgery ductectomy from the left breast done in her late 30s S/P tubal ligation 1982-immediately . History of back surgery Pain pump insertion, removed in 2014 S/P left knee arthroscopy Hx of oophorectomy 1980---right lower quadrant incision-right ovary and appendix were removed when she presented with pain to the emergency room S/P hysterectomy 1985--vaginal hysterectomy with left oophorectomy performed for a uterine mass she was told that there was no cancer but there were some abnormal cells and it was recommended that she have chemotherapy for 6 weeks however she did only 2 weeks and then did not finish the rest of treatment. S/P tonsillectomy and adenoidectomy As a child S/P cholecystectomy Laparoscopic procedure performed in 1992 Family History Mother Heart disease Hypertension Ovarian cancer Diagnosed at age 34 Suicide Thyroid disease Uterine cancer Diagnosed at age 34, unsure of origin Father Heart disease Thyroid disease Sister Thyroid disease Family/Other Thyroid disease [place], granddaughter Other Diabetes Social History Smoking and tobacco/nicotine status: former use of tobacco/nicotine Quit status (tobacco/nicotine): has quit using Second hand smoke exposure: No Alcohol intake: former Substance/Drug Use: never Adopted: No Caregiver/support person: No Lives independently: Yes Housing: House Marital status: Number of children: 2 Highest education level completed: Associate Degree: Occupational, Technical, Vocational Program service: Yes Pets and animals: Yes Sexually active: Yes Do you think of yourself as: Straight/Heterosexual Gricel/Evangelical: Denominational Special gricel needs: No Agree to transfusion: No Physical Exam Const: COMMON NORMALS: no acute distress, patient oriented x3 and no limitations GENERAL APPEARANCE: cooperative and comfortable HENMT: COMMON NORMALS: normocephalic, atraumatic, Normal nasal mucous membranes and turbinates present, moist oral mucous membranes and oropharynx normal HEAD & SCALP: normal to inspection, normocephalic and atraumatic FACE & SINUS: normal facial exam NOSE: Normal nasal mucous membranes and turbinates present Eye: COMMON NORMALS: Equal, round and reactive pupils present, EOMs intact bilaterally and conjunctivae normal GENERAL EYE: appearance normal, both eyes and all related structures CONJUNCTIVA: Yes conjunctivae normal PUPIL: Yes Equal, round and reactive pupils present Neck/C-Spine: COMMON NORMALS: supple and no JVD Chest: COMMONS NORMALS: normal inspection of the chest Resp: COMMON NORMALS: normal respiratory effort and clear to auscultation bilaterally AUSCULTATION: clear to auscultation bilaterally Cardio: COMMON NORMALS: no JVD, regular rate, regular rhythm, No gallops present (Cardio), No murmurs present (Cardio) and No rub (Cardio) RATE: regular rate RHYTHM: regular rhythm GI: COMMON NORMALS: Normal to inspection, nondistended, normoactive bowel sounds present, Soft to palpation and non-tender AUSCULTATION: Yes normoactive bowel sounds PALPATION: Yes Soft to palpation : COMMON NORMALS: Yes no CVA tenderness BLADDER/KIDNEY EXAM: Yes no CVA tenderness Back/Pelvis: COMMON NORMALS: no CVA tenderness and thoracic and lumbar spine normal to inspection Extremity: COMMON NORMALS: normal to inspection Neuro: COMMON NORMALS: patient oriented x3 and CN's II-XII intact bilaterally Psych: COMMON NORMALS: mental status grossly normal, Normal thought process present and cooperative THOUGHT PROCESS: Normal thought process present Skin: COMMON NORMALS: no rashes or lesions noted, turgor normal and no jaundice GENERAL SKIN EXAM: no rashes or lesions noted and turgor normal Course Vital Signs: Vital signs: Vital Signs Temperature 98.1 F 10/24/24 14:20 Pulse Rate 81 10/24/24 19:57 Respiratory Rate 16 10/24/24 14:20 Blood Pressure 144/69 10/24/24 19:57 Pulse Oximetry 100 10/24/24 19:57 Oxygen Delivery Me thod Room Air 10/24/24 19:00 MDM - Dizziness Medical Decision Making Telemetry monitoring revealed normal sinus rhythm. I did not see any arrhythmias or abnormal beats. CBC was normal. BMP revealed a potassium of 3.9. Magnesium was 1.9. Patient was asked to describe her dizziness whether it was more of a spinning or lightheaded and she said both. She has never tried meclizine. I will try her on a course of meclizine to see if this helps. She was discharged in stable condition instructed to follow-up with her primary care provider for recheck next week. Lab Data 10/24/24 18:05 10/24/24 18:05 Laboratory Results WBC 8.86 10^3/uL (3.29-11.43) 10/24/24 18:05 RBC 4.30 10^6/uL (3.85-5.65) 10/24/24 18:05 Hgb 13.00 g/dL (11.27-16.99) 10/24/24 18:05 Hct 40.5 % (36-47) 10/24/24 18:05 MCV 94.2 fl (85-98) 10/24/24 18:05 MCH 30.2 pg (27-33) 10/24/24 18:05 MCHC 32.1 g/dL (30-55) 10/24/24 18:05 RDW 13.7 % (12.1-15.1) 10/24/24 18:05 Plt Count 198 10^3/cmm (157-399) 10/24/24 18:05 MPV 11.9 fL (7.4-10.4) H 10/24/24 18:05 Neut % (Auto) 47.2 % 10/24/24 18:05 Lymph % (Auto) 36.2 % 10/24/24 18:05 [place] % (Auto) 9.4 % 10/24/24 18:05 Eos % (Auto) 5.8 % 10/24/24 18:05 Baso % (Auto) 0.9 % 10/24/24 18:05 Neut # (Auto) 4.19 10^3/uL (1.8-7.7) 10/24/24 18:05 Lymph # (Auto) 3.2 10^3/uL (0.8-4.8) 10/24/24 18:05 [place] # (Auto) 0.8 10^3/uL (0.2-0.9) 10/24/24 18:05 Eos # (Auto) 0.5 10^3/uL (0.0-0.8) 10/24/24 18:05 Baso # (Auto) 0.1 10^3/uL (0.0-0.1) 10/24/24 18:05 Nucleated RBC % (auto) 0 % 10/24/24 18:05 Nucleated RBCs # 0.0 /100WBC 10/24/24 18:05 Sodium 141 mmol/L (136-145) 10/24/24 18:05 Potassium 3.9 mmol/L (3.5-5.1) 10/24/24 18:05 Chloride 107 mmol/L (98-107) 10/24/24 18:05 Carbon Dioxide 21 mmol/L (22-29) L 10/24/24 18:05 Anion Gap 16.9 (5-19) 10/24/24 18:05 BUN 11 mg/dL (8-23) 10/24/24 18:05 Creatinine 0.6 mg/dL (0.5-0.9) 10/24/24 18:05 GFR Calculation 101.3 mL/min (90-130) 10/24/24 18:05 Glucose 89 mg/dL (65-115) 10/24/24 18:05 Calculated Osmolality 291 mOsm/kg (285-295) 10/24/24 18:05 Calcium 9.1 mg/dL (8.5-10.5) 10/24/24 18:05 Magnesium 1.9 mg/dL (1.7-2.3) 10/24/24 18:05 No radiology studies performed this visit Discharge Plan Discharge Patient Disposition: Home Clinical Impression: Dizziness Condition: Stable Prescriptions: New meclizine 25 mg tablet 25 mg PO QID PRN (Reason: dizziness) Qty: 30 0RF No Action prazosin 2 mg capsule 8 mg PO BEDTIME albuterol sulfate [Ventolin HFA] 90 mcg/actuation HFA aerosol inhaler 2 puff inhalation Q6H PRN (Reason: shortness of breath or wheezing) Qty: 8.5 0RF cyproheptadine 4 mg tablet 4 mg PO BEDTIME isosorbide dinitrate 30 mg Tablet 30 mg PO BID Rx Instructions: allow nitrate-free interval of 12-14 hrs per 24-hr period pregabalin [Lyrica] 300 mg Capsule 300 mg PO BID omeprazole 20 mg capsule,delayed release(DR/EC) 20 mg PO BID Eliquis 5 mg Tablet 5 mg PO BID oxybutynin chloride 5 mg tablet 10 mg PO DAILY prochlorperazine maleate 10 mg tablet 10 mg PO DAILY PRN (Reason: Nausea) methocarbamol 750 mg tablet 750 mg PO TID PRN (Reason: Spasms) hydrocodone-acetaminophen 5-325 mg tablet 1 tab PO Q12H MDD 1daily PRN (Reason: Pain) spironolactone 25 mg Tablet 25 mg PO BID Qty: 60 0RF Discharge Orders: Discharge ED (Routine); Ordered 10/24/24 Ordered By: Uriah Clemens Referrals: Anju Taveras FNP [Primary Care Provider, Nurse Practitioner] Patient Instructions: Dizziness Activity Restrictions/Additional Instructions: Try the meclizine as prescribed. Follow-up with your primary care provider next week for recheck. 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
== END 2024-10-24 19:58 | disposition home or self-care (01) ==
PROVIDERS: Emergency Provider Emergency Medicine; PCP Nurse Practitioner
DX: R42 Dizziness and giddiness (principal); Z79.01 Long term (current) use of anticoagulants; Z87.891 Personal history of nicotine dependence; I25.10 Atherosclerotic heart disease of native coronary artery without angina pectoris; E11.40 Type 2 diabetes mellitus with diabetic neuropathy, unspecified; I10 Essential (primary) hypertension
CPT/HCPCS: 36415; 80048; 83735; 85025; 93005; 96360; 99284; J7030

== ENCOUNTER → 2024-11-01 07:49 | Outpatient (BNVA) | payer OTHER, SELFPAY | PROVIDERS: PCP Nurse Practitioner; Visit Provider Nurse Practitioner | DX: M17.0 Bilateral primary osteoarthritis of knee (principal); Z71.89 Other specified counseling | CPT/HCPCS: 20610; J1100; J2795; J3301; J9999 ==

== ENCOUNTER 2024-11-15 19:22 | Emergency (ER) | payer OTHER, SELFPAY ==
[2024-11-15 19:23] VITALS: BP 143/83; PULSE 78; RESP 18; TEMP 36.5; O2SAT 97
[2024-11-15 20:44] VITALS: BP 147/76; PULSE 78; O2SAT 96
--- NOTE | 2024-11-15 20:50 | XRR_ITS ---
PROCEDURE INFORMATION: Exam: XR Right Femur Exam date and time: 11/15/2024 9:04 PM Age: 64 years old Clinical indication: Injury or trauma; Fall; Blunt trauma; Thigh or upper leg; Right; Patient fell walking up stairs. C/O RT thigh and lower leg pain. Abrasion to anterior knee. TECHNIQUE: Imaging protocol: Radiologic exam of the right femur. Views: 2 views. COMPARISON: CT hip RT wo con* [id number] 09/08/2024 5:45 PM FINDINGS: Bones/joints: No definite acute fracture or traumatic malalignment. Degenerative changes of the hip and knee joints. No dislocation. Small osteochondroma of the distal medial cortex of the femur. Soft tissues: Unremarkable. XR/XR femur RT min 2V* [id number] IMPRESSION: As above.
--- NOTE | 2024-11-15 20:50 | XRR_ITS ---
PROCEDURE INFORMATION: Exam: XR Right Tibia and Fibula Exam date and time: 11/15/2024 9:04 PM Age: 64 years old Clinical indication: Injury or trauma; Fall; Blunt trauma; Right; Patient fell walking up stairs. C/O RT thigh and lower leg pain. Abrasion to anterior knee. TECHNIQUE: Imaging protocol: Radiologic exam of the right tibia and fibula. Views: 2 views. COMPARISON: CT hip RT wo con* [id number] 09/08/2024 5:45 PM FINDINGS: Bones/joints: Normal. Soft tissues: Normal. XR/XR tibia fibula RT 2V [id number] IMPRESSION: No acute findings.
[2024-11-15 21:04] VITALS: RESP 18; O2SAT 95
[2024-11-15] MEDS: morphine 4 mg/mL SDV 1 mL IVP (21:04)
--- NOTE | 2024-11-15 21:58 | W.ED.EXTPRO ---
HPI - Extremity Problem General: Chief complaint: Extremity Injury, Lower Stated complaint: Fell on both knees Time Seen by Provider: 11/15/24 20:36 History of Present Illness: This patient is a 64-year-old white female who tripped while she was going into the house and she landed on both knees. She is having pain mainly over the right knee extending up into the right hip. Related Data Home Medications ?Medication ?Instructions ?Recorded ?Confirmed prazosin 2 mg capsule 8 mg PO BEDTIME 10/18/21 11/01/24 pregabalin 300 mg capsule (Lyrica) 300 mg PO BID 06/17/22 11/01/24 cyproheptadine 4 mg tablet 4 mg PO BEDTIME 08/11/23 11/01/24 apixaban 5 mg tablet (Eliquis) 5 mg PO BID 07/18/24 11/01/24 omeprazole 20 mg capsule,delayed 20 mg PO BID 07/18/24 11/01/24 release isosorbide dinitrate 30 mg tablet 30 mg PO BID 07/26/24 11/01/24 oxybutynin chloride 5 mg tablet 10 mg PO DAILY 08/21/24 11/01/24 methocarbamol 750 mg tablet 750 mg PO TID PRN Spasms 10/01/24 11/01/24 prochlorperazine maleate 10 mg 10 mg PO DAILY PRN Nausea 10/01/24 11/01/24 tablet hydrocodone 5 mg-acetaminophen 325 1 tab PO Q12H PRN Pain 10/16/24 11/01/24 mg tablet Previous Rx's ?Medication ?Instructions ?Recorded albuterol sulfate 90 mcg/actuation 2 puff inhalation Q6H PRN 01/04/23 aerosol inhaler (Ventolin HFA) shortness of breath or wheezing #8.5 grams spironolactone 25 mg tablet 25 mg PO BID #60 tabs 10/18/24 meclizine 25 mg tablet 25 mg PO QID PRN dizziness #30 tabs 10/24/24 Allergies Allergy/AdvReac Type Severity Reaction Status Date / Time ondansetron (From Zofran) Allergy Severe Dystonia Verified 11/15/24 19:32 bee venom protein (honey bee) Allergy anaphylaxis Verified 11/15/24 19:32 Influenza Virus Vaccines Allergy anaphylacti Verified 11/15/24 19:32 c mushroom Allergy anaphylaxis Verified 11/15/24 19:32 tetracycline Allergy Rash, Verified 11/15/24 19:32 shortness of breath trazodone Allergy Rash, Verified 11/15/24 19:32 trouble breathing vaccines Allergy ALGY-Anaphy Uncoded 11/15/24 19:32 laxis Review of Systems General: Reports: 10 or more systems reviewed and unremarkable except in HPI and below Musc: Reports: extremity pain (Right thigh down to the right knee.) PFSH ED PFSH: Medical History Tear of medial meniscus of left knee, current Renal failure Left knee pain No pertinent past medical history NegHx: thyroid, dvt/pe PCP: Tania Gastroparesis Prinzmetal angina Metatarsalgia of both feet Post traumatic stress disorder (PTSD) Hyperlipidemia Coronary 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 Takes Lyrica for the neuropathy. Does take hydrocodone as needed for pain. GERD (gastroesophageal reflux disease) Controlled on medication Anxiety and depression Diagnosed in the and controlled well on medication at this time managed by primary care provider nurse practitioner Nitin. Hypertension Diagnosed in 2018 managed by primary care provider nurse jami Taveras Surgical History H/O esophagogastroduodenoscopy (09/01/21) History of coronary angiogram 06/2021 and 05/2022 History of surgery neck lipoma removal- S/P appendectomy 1980-right lower quadrant incision, right ovary and appendix were removed. Hx of breast surgery ductectomy from the left breast done in her late 30s S/P tubal ligation 1982-immediately . History of back surgery Pain pump insertion, removed in 2014 S/P left knee arthroscopy Hx of oophorectomy 1980---right lower quadrant incision-right ovary and appendix were removed when she presented with pain to the emergency room S/P hysterectomy 1985--vaginal hysterectomy with left oophorectomy performed for a uterine mass she was told that there was no cancer but there were some abnormal cells and it was recommended that she have chemotherapy for 6 weeks however she did only 2 weeks and then did not finish the rest of treatment. S/P tonsillectomy and adenoidectomy As a child S/P cholecystectomy Laparoscopic procedure performed in 1992 Family History Mother Heart disease Hypertension Ovarian cancer Diagnosed at age 34 Suicide Thyroid disease Uterine cancer Diagnosed at age 34, unsure of origin Father Heart disease Thyroid disease Sister Thyroid disease Family/Other Thyroid disease [place], granddaughter Other Diabetes Social History Smoking and tobacco/nicotine status: former use of tobacco/nicotine Quit status (tobacco/nicotine): has quit using Second hand smoke exposure: No Alcohol intake: former Substance/Drug Use: never Adopted: No Caregiver/support person: No Lives independently: Yes Housing: House Marital status: Number of children: 2 Highest education level completed: Associate Degree: Occupational, Technical, Vocational Program service: Yes Pets and animals: Yes Sexually active: Yes Do you think of yourself as: Straight/Heterosexual Gricel/Jainism: Advent Special gricel needs: No Agree to transfusion: No Physical Exam Const: COMMON NORMALS: no acute distress, patient oriented x3 and no limitations GENERAL APPEARANCE: cooperative and comfortable HENMT: COMMON NORMALS: normocephalic, atraumatic, Normal nasal mucous membranes and turbinates present, moist oral mucous membranes and oropharynx normal HEAD & SCALP: normal to inspection, normocephalic and atraumatic FACE & SINUS: normal facial exam NOSE: Normal nasal mucous membranes and turbinates present Eye: COMMON NORMALS: Equal, round and reactive pupils present, EOMs intact bilaterally and conjunctivae normal GENERAL EYE: appearance normal, both eyes and all related structures CONJUNCTIVA: Yes conjunctivae normal PUPIL: Yes Equal, round and reactive pupils present Neck/C-Spine: COMMON NORMALS: supple and no JVD Chest: COMMONS NORMALS: normal inspection of the chest Resp: COMMON NORMALS: normal respiratory effort and clear to auscultation bilaterally AUSCULTATION: clear to auscultation bilaterally Cardio: COMMON NORMALS: no JVD, regular rate, regular rhythm, No gallops present (Cardio), No murmurs present (Cardio) and No rub (Cardio) RATE: regular rate RHYTHM: regular rhythm GI: COMMON NORMALS: Normal to inspection, nondistended, normoactive bowel sounds present, Soft to palpation and non-tender AUSCULTATION: Yes normoactive bowel sounds PALPATION: Yes Soft to palpation : COMMON NORMALS: Yes no CVA tenderness BLADDER/KIDNEY EXAM: Yes no CVA tenderness Back/Pelvis: COMMON NORMALS: no CVA tenderness and thoracic and lumbar spine normal to inspection Extremity: COMMON NORMALS: normal to inspection NARRATIVE EXTREMITY EXAM: There is a small abrasion and contusion over the anterior aspect of the right knee. Full range of motion of the right hip with mild discomfort. Full range of motion of the right knee with mild discomfort. Negative anterior posterior drawer test. Negative valgus and varus stress test. Neuro: COMMON NORMALS: patient oriented x3 and CN's II-XII intact bilaterally Psych: COMMON NORMALS: mental status grossly normal, Normal thought process present and cooperative THOUGHT PROCESS: Normal thought process present Skin: COMMON NORMALS: no rashes or lesions noted, turgor normal and no jaundice GENERAL SKIN EXAM: no rashes or lesions noted and turgor normal Course Vital Signs: Vital signs: Vital Signs Temperature 97.7 F 11/15/24 19:23 Pulse Rate 70 11/15/24 22:00 Respiratory Rate 18 11/15/24 21:04 Blood Pressure 170/90 11/15/24 22:00 Pulse Oximetry 96 11/15/24 22:00 Oxygen Delivery Me thod Room Air 11/15/24 22:00 MDM - Extremity (Nontraumatic) Medical Decision Making X-rays of the right femur were normal. X-rays of the right tibia and fibula were normal. Patient was given injection of morphine for pain in the emergency department. Wound was cleaned and dressed by nursing staff. Recommended she use ice to the area 3-4 times per day for 15 to 20 minutes each time. She does have hydrocodone that she can use for pain at home. Follow-up with primary care physician as needed. She was discharged in stable condition. Lab Data Radiology Impressions Femur X-Ray 11/15/24 20:50 IMPRESSION: As above. Tibia/Fibula X-Ray 11/15/24 20:50 IMPRESSION: No acute findings. All radiology interpretation(s) finalized by discharge Discharge Plan Discharge Patient Disposition: Home Clinical Impression: Contusion of knee, right Qualifiers: Encounter type: initial encounter Qualified Code(s): S80.01XA - Contusion of right knee, initial encounter Condition: Stable Prescriptions: No Action prazosin 2 mg capsule 8 mg PO BEDTIME albuterol sulfate [Ventolin HFA] 90 mcg/actuation HFA aerosol inhaler 2 puff inhalation Q6H PRN (Reason: shortness of breath or wheezing) Qty: 8.5 0RF cyproheptadine 4 mg tablet 4 mg PO BEDTIME isosorbide dinitrate 30 mg Tablet 30 mg PO BID Rx Instructions: allow nitrate-free interval of 12-14 hrs per 24-hr period pregabalin [Lyrica] 300 mg Capsule 300 mg PO BID omeprazole 20 mg capsule,delayed release(DR/EC) 20 mg PO BID Eliquis 5 mg Tablet 5 mg PO BID oxybutynin chloride 5 mg tablet 10 mg PO DAILY prochlorperazine maleate 10 mg tablet 10 mg PO DAILY PRN (Reason: Nausea) methocarbamol 750 mg tablet 750 mg PO TID PRN (Reason: Spasms) hydrocodone-acetaminophen 5-325 mg tablet 1 tab PO Q12H MDD 1daily PRN (Reason: Pain) spironolactone 25 mg Tablet 25 mg PO BID Qty: 60 0RF meclizine 25 mg tablet 25 mg PO QID PRN (Reason: dizziness) Qty: 30 0RF Discharge Orders: Discharge ED (Routine); Ordered 11/15/24 Ordered By: Uriah Clemens Referrals: Anju Taveras FNP [Primary Care Provider, Nurse Practitioner] Patient Instructions: Contusion Print Language: Bengali Coding Level of Care Code ED 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
[2024-11-15 22:00] VITALS: BP 170/90; PULSE 70; O2SAT 96
[2024-11-15 22:26] VITALS: BP 173/90; PULSE 81; O2SAT 94
== END 2024-11-15 22:14 | disposition home or self-care (01) ==
PROVIDERS: Emergency Provider Emergency Medicine; PCP Nurse Practitioner
DX: S80.01XA Contusion of right knee, initial encounter (principal); M25.562 Pain in left knee; W19.XXXA Unspecified fall, initial encounter; Z79.01 Long term (current) use of anticoagulants; Z87.891 Personal history of nicotine dependence; E78.5 Hyperlipidemia, unspecified; I25.10 Atherosclerotic heart disease of native coronary artery without angina pectoris; E11.40 Type 2 diabetes mellitus with diabetic neuropathy, unspecified; I10 Essential (primary) hypertension
CPT/HCPCS: 73552; 73590; 96374; 99284; J2270

== ENCOUNTER 2024-12-19 18:41 | Emergency (ER) | payer OTHER, SELFPAY ==
[2024-12-19 18:45] VITALS: BP 125/66; PULSE 63; RESP 18; TEMP 36.6; O2SAT 96; BMI 36.0
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
--- OUTSIDE RECORDS SUMMARY | 2024-12-19 18:45 | XMS_ITS | Encounter Summary ---
Author Organization [facility] Address [address] [place] [address] Care Team Providers Care Nurse Practitioner Name Role Phone Nayeli Gonzales MD Primary Care Provider [phone]- [phone] Encounter Details Date Type Department Care Team (Latest Contact Info) Description 11/22/1999 Outpatient Historical [facility] Jorge L Kam Jr., MD [address] [place] [id number] Sprain of ankle, unspecified site (Primary Dx) Social History Tobacco Use Types Packs/Day Years Used Date Smoking Tobacco: Never Assessed Comments Unknown Sex and Gender Information Value Date Recorded Sex Assigned at Not on file 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
--- OUTSIDE RECORDS SUMMARY | 2024-12-19 18:45 | XMS_ITS | Encounter Summary ---
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 Gender Identity Not on file Sexual Orientation Not on file documented as of this encounter Plan of Treatment Not on file documented as of this encounter Procedures Procedure Name Priority Date/Time Associated Diagnosis Comments LIPID PANEL Routine 12/11/2006 10:10 AM CDT documented in this encounter Results * (ABNORMAL) LIPID PANEL (12/11/2006 10:10 AM CDT) CHOLESTEROL 178 75 - 200 mg/dL INTERFACE [facility] HDL 50 40 - 60 mg/dL [facility] TRIGLYCERIDE 182(H) 0 - 179 mg/dL [facility] GLUCOSE 94 70 - 110 mg/dL [facility] CALCULATED LDL CHOLESTEROL 92 0 - 130 mg/dL INTERFACE [facility] CALCULATED TOTAL CHOLESTEROL TO HDL RATIO 3.56 3.27 - 4.44 INTERFACE SYSTEM 12/11/2006 10:1 0 AM CDT us Jorge L Garza MD CHEMISTRY ORDERABLES Edited INTERFACE SYSTEM Refer to clinic/hospital department documented in this encounter Visit Diagnoses Not on filedocumented in this encounter Care Teams Pipe Connector Relationship Specialty Start Date End Date Nayeli Gonzales MD [address] [place] [address] PCP - General Family Practice 06/22/10 documented as of this encounter
--- OUTSIDE RECORDS SUMMARY | 2024-12-19 18:45 | XMS_ITS | Encounter Summary ---
Author Organization [facility] Address [address] [place] [address] Care Team Providers Care Vice President Sales Name Role Phone Nayeli Gonzales MD Primary Care Provider +1- [phone] Encounter Details Date Type Department Care Team (Latest Contact Info) Description 09/24/1999 Outpatient Historical HIS [facility] Josias Lacy NO ADDRESS ON FILE Conjunctivitis unspecified (Primary Dx) Social History Tobacco Use Types Packs/Day Years Used Date Smoking Tobacco: Never Assessed Comments Unknown Sex and Gender Information Value Date Recorded Sex Assigned at Not on file 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
--- OUTSIDE RECORDS SUMMARY | 2024-12-19 18:45 | XMS_ITS | Clinical Summary ---
Author Organization [facility] Address [address] [place] [address] Care Team Providers Care Teacher [employer]ery [employer] Name Role Phone Nayeli Gonzales MD Primary Care Provider +1- [phone] Allergies Active Allergy Reactions Criticality Noted Date Comments Tetracycline Rash,Swelling High 08/23/2010 Trouble swallowing Trazodone Other (See Comments) High 08/23/2010 paralysis Medications nitroglycerin SR (NITRO-TIME) 6.5 mg Oral capsule Take 6.5 mg by mouth 2 times daily. Active metoprolol tartrate (LOPRESSOR) 12.5 mg Oral Tab Take 12.5 mg by mouth 2 times daily. Active gabapentin (NEURONTIN) 300 mg Oral tablet Take 300 mg by mouth 3 times daily. Active pantoprazole (PROTONIX) 40 mg Oral TbEC Take 40 mg by mouth daily. Active ALPRAZolam (XANAX) 0.25 mg Oral tablet Take 0.25 mg by mouth nightly as needed. For sleep Active ESZOPICLONE (LUNESTA ORAL) Take by mouth. HS Active HYDROcodone-efe taminophen (NORCO) 10-325 mg Oral Tab Take 1 Tab by mouth every 4 hours as needed. Active metaxalone (SKELAXIN) 800 mg Oral tablet Take 800 mg by mouth 3 times daily. Active Social History Tobacco Use Types Packs/Day Years Used Date Smoking Tobacco: Former Cigarettes Smokeless Tobacco: Never Alcohol Use Standard Drinks/Week Comments Yes 0 (1 standard drink = 0.6 oz pur e alcohol) social Comments Unknown Sex and Gender Information Value Date Recorded Sex Assigned at Not on file Legal Sex Female 3:58 AM TRAFFIC OPERATOR Gender Identity Not on file Sexual Orientation Not on file Last Filed Vital Signs Vital Sign Reading Time Taken Comments Blood Pressure 124/82 06/25/2010 1:14 PM TRAFFIC OPERATOR Pulse 62 06/25/2010 1:14 PM TRAFFIC OPERATOR Temperature 36.6 C (97.9 F) 08/23/2010 1:13 PM CDT Respiratory Rate 16 06/25/2010 1:14 PM TRAFFIC OPERATOR Oxygen Saturation 97% 06/25/2010 1:14 PM TRAFFIC OPERATOR Inhaled Oxygen Concentration - - Weight 122 kg (269 lb) 08/23/2010 1:13 PM CDT Height 172.7 cm (5' 8 ) 08/23/2010 1:13 PM CDT Body Mass Index 40.9 08/23/2010 1:13 PM CDT Plan of Treatment Health Maintenance Due Date Last Done Comments DTAP/TDAP/TD VACCINES (1 - Tdap) 1981 HPV/Cotest (21-29) 1983 CERVICAL CANCER SCREENING 1992 HPV/Cotest (30-65) 1992 PAP SMEAR 1992 BREAST CANCER SCREENING 2002 COLORECTAL SCREENING 2007 Colorectal Cancer Screening 2007 FIT-DNA Q 3 years 2007 FIT/FOBT Q 1 year 2007 Flex Sig/CT Colonography Q 5 years 2007 ZOSTER VACCINE (1 of 2) 2012 INFLUENZA VACCINE (#1) 2024 RSV VACCINE (60+ or ) (1 - 1-dose 75+ series) 2037 Insurance [facility] Care Teams Teacher Nursery School Relationship Specialty Start Date End Date Nayeli Gonzales MD [address] [place] [address] PCP - General Family Practice 06/22/10
--- OUTSIDE RECORDS SUMMARY | 2024-12-19 18:45 | XMS_ITS | Encounter Summary ---
Author Organization [facility] Address [address] [place] [address] Care Team Providers Care Hot Metal Car Operator Name Role Phone Nayeli Gonzales MD Primary Care Provider +1- [phone] Encounter Details Date Type Department Care Team (Latest Contact Info) Description 06/03/2007 [facility]patient [facility] [address] [place] [address] Nayeli Gonzales MD [address] [place] [address] Other Screening Mammogram Social History Tobacco Use Types Packs/Day Years Used Date Smoking Tobacco: Never Assessed Comments Unknown Sex and Gender Information Value Date Recorded Sex Assigned at Not on file Legal Sex Female 3:58 AM TUBE WINDER HAND Gender Identity Not on file Sexual Orientation Not on file documented as of this encounter Plan of Treatment Not on file documented as of this encounter Visit Diagnoses Diagnosis Other screening mammogram documented in this encounter Care Teams Hot Metal Car Operator Relationship Specialty Start Date End Date Nayeli Gonzales MD [address] [place] [address] PCP - General Family Practice 06/22/10 documented as of this encounter
--- OUTSIDE RECORDS SUMMARY | 2024-12-19 18:45 | XMS_ITS | Encounter Summary ---
Author Organization [facility] Address [address] [place] [address] Care Team Providers Care Ice Hockey Coach Name Role Phone Nayeli Gonzales MD Primary Care Provider +1- [phone] Encounter Details Date Type Department Care Team (Latest Contact Info) Description 03/23/1998 Outpatient Historical HIS [facility] Grzegorz Douglas MD [address] [phone] Other postprocedural status(V45.89) (Primary Dx) Social History Tobacco Use Types Packs/Day Years Used Date Smoking Tobacco: Never Assessed Comments Unknown Sex and Gender Information Value Date Recorded Sex Assigned at Not on file Legal Sex Female 3:58 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
--- OUTSIDE RECORDS SUMMARY | 2024-12-19 18:45 | XMS_ITS | Clinical Summary ---
Author Organization [facility] Address [address] Attn: [place] [address] Care Team Providers Care Reverberatory Furnace Supervisor Name Role Phone Nayeli Gonzales MD Primary Care Provider +1- [phone] Allergies Active Allergy Reactions Criticality Noted Date Comments Tetracycline Rash,Swelling High 08/23/2010 Trouble swallowing Trazodone Other (See Comments) High 08/23/2010 paralysis Medications cpap medical lab specialist CPAP @ [facility] with heated humidifier. Length of need:99 months; per patient comfort mask with headgear every 6 months; mask only every 3 months; as needed cushions per month; Tubing heated 1 every 3 months, water chamber 1 every 6 months, chin strap 1 every 6 months, filters disposable 2 per month, filters reusable 1 per 6 months. Efficacy data download feature and mask fitting. 1 Each 1 Active Social History Tobacco Use Types Packs/Day Years Used Date Smoking Tobacco: Former Smokeless Tobacco: Never Alcohol Use Standard Drinks/Week Comments Yes 0 (1 standard drink = 0.6 oz pur e alcohol) Comments Unknown Sex and Gender Information Value Date Recorded Sex Assigned at Not on file Legal Sex Female 11:49 PM TRIM SETTER Gender Identity Not on file Sexual Orientation Not on file Plan of Treatment Health Maintenance Due Date Last Done Comments DIABETES ANNUAL FOOT EXAM 1980 DIABETES ANNUAL RETINAL EXAM 1980 DIABETES MICROALBUMIN ANNUAL SCREEN 1980 LDL CHOLESTEROL ANNUAL 1980 DTAP/TDAP/TD VACCINES (1 - Tdap) 1981 BREAST CANCER SCREENING 2002 COLORECTAL SCREENING 2007 Colorectal Cancer Screening 2007 FIT-DNA Q 3 years 2007 FIT/FOBT Q 1 year 2007 Flex Sig/CT Colonography Q 5 years 2007 ZOSTER VACCINE (1 of 2) 2012 DIABETES HBA1C Q 6 MONTHS 07/29/2021 01/29/2021 RSV VACCINE (60+ or ) (1 - Risk 60-74 years 1-dose series) 2022 INFLUENZA VACCINE (#1) 2024 Insurance [facility] [place] [address] [place] [address] [employer] Care Teams Reverberatory Furnace Supervisor Relationship Specialty Start Date End Date Nayeli Gonzales MD [address] [place] [address] PCP - General Family Practice 06/22/10
--- OUTSIDE RECORDS SUMMARY | 2024-12-19 18:45 | XMS_ITS | Encounter Summary ---
Author Organization [facility] Address [address] [place] [address] Care Team Providers Care Shell Maker Lockstitch Name Role Phone Nayeli Gonzales MD Primary Care Provider +1- [phone] Encounter Details Date Type Department Care Team (Latest Contact Info) Description 09/13/1999 Outpatient Historical [facility] Jorge L Kam Jr., MD [address] [place] [phone] Attention to dressings and sutures (Primary Dx) Social History Tobacco Use Types Packs/Day Years Used Date Smoking Tobacco: Never Assessed Comments Unknown Sex and Gender Information Value Date Recorded Sex Assigned at Not on file Legal Sex Female 3:58 AM PRACTICE PERFORMANCE MANAGER Gender Identity Not on file Sexual Orientation Not on file documented as of this encounter Plan of Treatment Not on file documented as of this encounter Visit Diagnoses Diagnosis Attention to dressings and sutures- Primary documented in this encounter Care Teams Shell Maker Lockstitch Relationship Specialty Start Date End Date Nayeli Gonzales MD [address] [place] [address] PCP - General Family Practice 06/22/10 documented as of this encounter
--- NOTE | 2024-12-19 18:46 | XRR_ITS ---
PROCEDURE INFORMATION: Exam: XR Chest Exam date and time: 12/19/2024 7:39 PM Age: 64 years old Clinical indication: Other: Weakness TECHNIQUE: Imaging protocol: Radiologic exam of the chest. Views: 1 view. COMPARISON: CT angio chest PE prot [id number] 07/26/2024 2:52 PM FINDINGS: Lungs: Lungs are clear. Pleural spaces: There is no pleural effusion or pneumothorax. Heart/Mediastinum: There is moderate enlargement of the cardiac silhouette. Bones/joints: Bones are unremarkable. XR/XR chest 1V portable [id number] IMPRESSION: No acute findings.
--- NOTE | 2024-12-19 18:46 | ECG_ITS ---
[facility] Test Date: 2024-12-19 Pat Name: Randi Kay Department: Room: Gender: Female Pipe Organ Mechanic Apprentice: : [id number] Requested By: Nini Coleman Order Number: [id number] Reading MD: Measurements Intervals [place] Rate: 65 P: 35 WY: 169 QRS: -40 QRSD: 157 T: 2 QT: 437 QTc: 456 Interpretive Statements SINUS RHYTHM LEFT AXIS DEVIATION [QRS AXIS < -30] RIGHT BUNDLE BRANCH BLOCK [120+ ms QRS DURATION, UPRIGHT V1, 40+ ms S IN I/aVL/V4/V5/V6] [email or web address]
--- OUTSIDE RECORDS SUMMARY | 2024-12-19 18:46 | XMS_ITS | Encounter Summary ---
Author Organization [facility] Address [address] [place] [address] Care Team Providers Care Orthotic Technician Name Role Phone Nayeli Gonzales MD Primary Care Provider +1- [phone] Encounter Details Date Type Department Care Team (Latest Contact Info) Description 03/30/1998 Outpatient Historical HIS [facility] Grzegorz Douglas MD [address] [phone] Other postprocedural status(V45.89) (Primary Dx) Social History Tobacco Use Types Packs/Day Years Used Date Smoking Tobacco: Never Assessed Comments Unknown Sex and Gender Information Value Date Recorded Sex Assigned at Not on file Legal Sex Female 3:[address]/MEDICAL INTERPRETER Gender Identity Not on file Sexual Orientation Not on file documented as of this encounter Plan of Treatment Not on file documented as of this encounter Visit Diagnoses Diagnosis Other postprocedural status(V45.89)- Primary Other postprocedural status documented in this encounter Care Teams Orthotic Technician Relationship Specialty Start Date End Date Nayeli Gonzales MD [address] [place] [address] PCP - General Family Practice 06/22/10 documented as of this encounter
--- OUTSIDE RECORDS SUMMARY | 2024-12-19 18:46 | XMS_ITS | Encounter Summary ---
Author Organization [facility] Address [address] [place] [address] Care Team Providers Care Aluminum Siding Mechanic Name Role Phone Nayeli Gonzales MD Primary Care Provider +1- [phone] Encounter Details Date Type Department Care Team (Latest Contact Info) Description 09/08/1999 Outpatient Historical [facility] Jorge L Kam Jr., MD [address] [place] [phone] Ingrowing nail (Primary Dx) Social History Tobacco Use Types Packs/Day Years Used Date Smoking Tobacco: Never Assessed Comments Unknown Sex and Gender Information Value Date Recorded Sex Assigned at Not on file Legal Sex Female 3:58 AM HANGER OFF Gender Identity Not on file Sexual Orientation Not on file documented as of this encounter Plan of Treatment Not on file documented as of this encounter Visit Diagnoses Diagnosis Ingrowing nail- Primary documented in this encounter Care Teams Aluminum Siding Mechanic Relationship Specialty Start Date End Date Nayeli Gonzales MD [address] [place] [address] PCP - General Family Practice 06/22/10 documented as of this encounter
--- OUTSIDE RECORDS SUMMARY | 2024-12-19 18:46 | XMS_ITS | Encounter Summary ---
Author Organization [facility] Address [address] [place] [address] Care Team Providers Care Hydro Electric Station Operator Name Role Phone Nayeli Gonzales MD Primary Care Provider +1- [phone] Encounter Details Date Type Department Care Team (Latest Contact Info) Description 10/07/1998 Outpatient Historical HIS [facility] Josias Lacy NO ADDRESS ON FILE Unspecified disorder of skin and subcutaneous tissue (Primary Dx) Social History Tobacco Use Types Packs/Day Years Used Date Smoking Tobacco: Never Assessed Comments Unknown Sex and Gender Information Value Date Recorded Sex Assigned at Not on file Legal Sex Female 3:58 AM RETAIL PHARMACY MANAGER Gender Identity Not on file Sexual Orientation Not on file documented as of this encounter Plan of Treatment Not on file documented as of this encounter Visit Diagnoses Diagnosis Unspecified disorder of skin and subcutaneous tissue- Primary documented in this encounter Care Teams Hydro Electric Station Operator Relationship Specialty Start Date End Date Nayeli Gonzales MD [address] [place] [address] PCP - General Family Practice 06/22/10 documented as of this encounter
--- OUTSIDE RECORDS SUMMARY | 2024-12-19 18:46 | XMS_ITS | Encounter Summary ---
Author Organization [facility] Address [address] [place] [address] Care Team Providers Care Pacs Administrator Name Role Phone Nayeli Gonzales MD Primary Care Provider +1- [phone] Encounter Details Date Type Department Care Team (Latest Contact Info) Description 12/24/1998 Outpatient Historical HIS [facility] Anthony Quiroga MD [address] [place] [phone] Bronchitis, not specified as acute or chronic (Primary Dx); Depressive disorder, not elsewhere classified Social History Tobacco Use Types Packs/Day Years Used Date Smoking Tobacco: Never Assessed Comments Unknown Sex and Gender Information Value Date Recorded Sex Assigned at Not on file Legal Sex Female 3:58 AM GOVERNMENT PROGRAM MANAGER Gender Identity Not on file Sexual Orientation Not on file documented as of this encounter Plan of Treatment Not on file documented as of this encounter Visit Diagnoses Diagnosis Bronchitis, not specified as acute or chronic- Primary Depressive disorder, not elsewhere classified documented in this encounter Care Teams Pacs Administrator Relationship Specialty Start Date End Date Nayeli Gonzales MD [address] [place] [address] PCP - General Family Practice 06/22/10 documented as of this encounter
--- OUTSIDE RECORDS SUMMARY | 2024-12-19 18:46 | XMS_ITS | Encounter Summary ---
Author Organization [facility] Address [address] [place] [address] Care Team Providers Care Hazardous Materials Waste Technician Name Role Phone Nayeli Gonzales MD Primary Care Provider +1- [phone] Encounter Details Date Type Department Care Team (Latest Contact Info) Description 07/23/1999 Outpatient Historical HIS [facility] Anthony Quiroga MD [address] [place] [phone] Other and unspecified noninfectious gastroenteritis and colitis(558.9) (Primary Dx); Urinary tract infection, site not specified; Symptomatic menopausal or female climacteric states; Nausea alone Social History Tobacco Use Types Packs/Day Years Used Date Smoking Tobacco: Never Assessed Comments Unknown Sex and Gender Information Value Date Recorded Sex Assigned at Not on file Legal Sex Female 3:58 AM VENDOR REPRESENTATIVES Gender Identity Not on file Sexual Orientation Not on file documented as of this encounter Plan of Treatment Not on file documented as of this encounter Visit Diagnoses Diagnosis Other and unspecified noninfectious gastroenteritis and colitis(558.9)- Primary Other and unspecified noninfectious gastroenteritis and colitis Urinary tract infection, site not specified Symptomatic menopausal or female climacteric states Nausea alone documented in this encounter Care Teams Hazardous Materials Waste Technician Relationship Specialty Start Date End Date Nayeli Gonzales MD [address] [place] [address] PCP - General Family Practice 06/22/10 documented as of this encounter
--- OUTSIDE RECORDS SUMMARY | 2024-12-19 18:46 | XMS_ITS | Encounter Summary ---
Author Organization [facility] Address [address] [place] [address] Care Team Providers Care New Media Strategist Name Role Phone Nayeli Gonzales MD Primary Care Provider +1- [phone] Encounter Details Date Type Department Care Team (Latest Contact Info) Description 07/26/1999 Outpatient Historical HIS [facility] Anthony Quiroga MD [address] [place] [phone] Urinary tract infection, site not specified (Primary Dx); Lumbago; Acute upper respiratory infections of unspecified site Social History Tobacco Use Types Packs/Day Years Used Date Smoking Tobacco: Never Assessed Comments Unknown Sex and Gender Information Value Date Recorded Sex Assigned at Not on file Legal Sex Female 3:58 AM PULL WORKER Gender Identity Not on file Sexual Orientation Not on file documented as of this encounter Plan of Treatment Not on file documented as of this encounter Visit Diagnoses Diagnosis Urinary tract infection, site not specified- Primary Lumbago Acute upper respiratory infections of unspecified site documented in this encounter Care Teams New Media Strategist Relationship Specialty Start Date End Date Nayeli Gonzales MD [address] [place] [address] PCP - General Family Practice 06/22/10 documented as of this encounter
--- OUTSIDE RECORDS SUMMARY | 2024-12-19 18:46 | XMS_ITS | Encounter Summary ---
Author Organization [facility] Address [address] [place] [address] Care Team Providers Care Tooth Clerk Name Role Phone Nayeli Gonzales MD Primary Care Provider +1- [phone] Encounter Details Date Type Department Care Team (Latest Contact Info) Description 04/15/1999 Outpatient Historical HIS [facility] Anthony Quiroga MD [address] [place] [phone] Ganglion of joint (Primary Dx) Social History Tobacco Use Types Packs/Day Years Used Date Smoking Tobacco: Never Assessed Comments Unknown Sex and Gender Information Value Date Recorded Sex Assigned at Not on file Legal Sex Female 3:58 AM SOFTWARE CONTROLS ENGINEER Gender Identity Not on file Sexual Orientation Not on file documented as of this encounter Plan of Treatment Not on file documented as of this encounter Visit Diagnoses Diagnosis Ganglion of joint- Primary documented in this encounter Care Teams Tooth Clerk Relationship Specialty Start Date End Date Nayeli Gonzales MD [address] [place] [address] PCP - General Family Practice 06/22/10 documented as of this encounter
--- OUTSIDE RECORDS SUMMARY | 2024-12-19 18:46 | XMS_ITS | Patient Health Record ---
Author Organization [facility] Address [address] [place], [place] [address] Care Team Providers Care Cloth Grader Name Role Phone Keane RETAIL LOSS PREVENTION OFFICERLacey Primary Care Provider Unavailabl e Allergies Allergen (clinical drug ingredient) Drug/Non Drug Allergy documented on EMR Reaction Allergy Type Onset Date Status None or not verifiab le (as is Current Medications) (uncoded) Unknown Allergy Active Reason For Referral No Information Medications Medication SIG (Take, Route, Frequency, Duration) Notes Start Date End Date Status lidocaine topical 5% 1 celeste applied topic ally TID prn Active citalopram 40 mg 1 tab orally once a day for 30 day(s) Active OxyCONTIN 40 mg 1 tab po orally Q8H prn pain Active Percocet 10/325 mg 1 tab po orally Q4H prn breakthrough pain Active Neurontin 300 mg 1 cap po orally BID Active ALPRAZolam 0.5 mg 1/2-1 tab orally QHS , PRN for 30 day(s) Active pantoprazole 40 mg 1 tab orally BID for 30 day(s) Active promethazine 25 mg 1 tab orally Q6H Active nitroglycerin 6.5 mg 1 cap orally BID fo r 30 day(s) Active Zofran 4 mg 1 tab po orally Q6H prn nausea Active potassium chloride 10 mEq 1 tab orally 2 times a day for 30 day(s) Active metoprolol 25 mg 1/2 tab orally 2 carlos es a day for 30 day(s) Active Problems Problem Type SNOMED Code ICD Code Onset Dates Problem Status W/U Status Risk Notes Problem Thoracic spondylosis without myelopathy (868495208) Thoracic spondylosis without myelopathy (721.2) Active confirmed Problem Spasm (28431279) Muscle spasm (728.85) Active confirmed Problem Hypersomnia (85195959) Hypersomnia (780.54) Active confirmed Problem Sleep dysfunction with sleep stage disturbance (462649673) Dysfunctions associated with sleep stages or arousal from sleep (780.56) Active confirmed Problem Postoperative seroma (958920753) Seroma complicating a procedure (998.13) Active confirmed Problem Low back pain (253307365) Low back pain (724.2) Active confirmed Problem Pain in thoracic spine (693401541) Thoracic pain (724.1) Active confirmed Problem Displacement of lumbar intervertebral disc without myelopathy (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) Lumbar (w/out myelopathy) intervertebral disc disorder (722.10) Active confirmed Problem Long-term drug therapy (758221350) LONG-TERM USE MEDS NEC (V58.69) Active confirmed R/O substance abuse Problem Anxiety state (982750902) Anxiety State, other, specified: procedure related (300.09) Active confirmed Problem Displacement of thoracic intervertebral disc without myelopathy (55655417) Thoracic disc (w/out myelopathy) disorder (722.11) Active confirmed Problem Lumbar spinal stenosis (78473487) Lumbar spinal stenosis (724.02) Active confirmed Problem Lumbosacral spondylosis without myelopathy (68141584) Lumbosacral spondylosis without myelopathy (721.3) Active confirmed Plan Of Treatment No Information Medical (General) History Medical History History ICD Code See prior documentation. Surgical History Surgery Date(Month/Year) Hysterectomy-complete Arthroscopy-left knee Laparoscopic cholecystectomy Tonsillectomy-Adenoidectomy Appendectomy Lumpectomy and duct removed from left br east Right thumb SynchroMed II Medtronic pump placement Revision of Medtronic pump 12/26/11 Removal of intrathecal pump 06/11/2013 Hospitalization History Reason Date(Month/Year) Cardiac spasms 2007 Anesthesia complications (post op pump p lacement) 02/24/11-02/25/11
--- NOTE | 2024-12-19 18:49 | W.ED.SYNCOPE ---
HPI - Syncope General: Chief Complaint: Fall Stated Complaint: SYNCOPE Time Seen by Provider: 12/19/24 18:46 History of Present Illness: 64-year-old female with a history of morbid obesity, Prinzmetal angina, PTSD, hyperlipidemia, coronary artery disease, type 2 diabetes mellitus hypertension anxiety and depression who presents to the emergency room by ambulance after she had a fall and head injury with loss of consciousness. Unclear if she had a syncopal episode and then hit her head or if she became lightheaded and that caused her to fall down and she was knocked out. Currently she is complaining of neck pain. Some mild head pain. Left knee pain. Related Data Home Medications ?Medication ?Instructions ?Recorded ?Confirmed prazosin 2 mg capsule 8 mg PO BEDTIME 10/18/21 11/01/24 pregabalin 300 mg capsule (Lyrica) 300 mg PO BID 06/17/22 11/01/24 cyproheptadine 4 mg tablet 4 mg PO BEDTIME 08/11/23 11/01/24 apixaban 5 mg tablet (Eliquis) 5 mg PO BID 07/18/24 11/01/24 omeprazole 20 mg capsule,delayed 20 mg PO BID 07/18/24 11/01/24 release isosorbide dinitrate 30 mg tablet 30 mg PO BID 07/26/24 11/01/24 oxybutynin chloride 5 mg tablet 10 mg PO DAILY 08/21/24 11/01/24 methocarbamol 750 mg tablet 750 mg PO TID PRN Spasms 10/01/24 11/01/24 prochlorperazine maleate 10 mg 10 mg PO DAILY PRN Nausea 10/01/24 11/01/24 tablet hydrocodone 5 mg-acetaminophen 325 1 tab PO Q12H PRN Pain 10/16/24 11/01/24 mg tablet Previous Rx's ?Medication ?Instructions ?Recorded albuterol sulfate 90 mcg/actuation 2 puff inhalation Q6H PRN 01/04/23 aerosol inhaler (Ventolin HFA) shortness of breath or wheezing #8.5 grams spironolactone 25 mg tablet 25 mg PO BID #60 tabs 10/18/24 meclizine 25 mg tablet 25 mg PO QID PRN dizziness #30 tabs 10/24/24 hydrocodone 5 mg-acetaminophen 325 1 tab PO Q6H PRN pain #20 tabs 12/19/24 mg tablet polyethylene glycol 3350 17 17 g PO DAILY #510 grams 12/19/24 gram/dose oral powder (Miralax) Allergies Allergy/AdvReac Type Severity Reaction Status Date / Time ondansetron (From Zofran) Allergy Severe Dystonia Verified 12/19/24 18:51 bee venom protein (honey bee) Allergy anaphylaxis Verified 12/19/24 18:51 Influenza Virus Vaccines Allergy anaphylacti Verified 12/19/24 18:51 c mushroom Allergy anaphylaxis Verified 12/19/24 18:51 tetracycline Allergy Rash, Verified 12/19/24 18:51 shortness of breath trazodone Allergy Rash, Verified 12/19/24 18:51 trouble breathing vaccines Allergy ALGY-Anaphy Uncoded 12/19/24 18:51 laxis Review of Systems Narrative: Constitutional symptoms: Negative except as documented in HPI. Skin symptoms: Negative except as documented in HPI. Eye symptoms: Negative except as documented in HPI. ENMT symptoms: Negative except as documented in HPI. Respiratory symptoms: Negative except as documented in HPI. Cardiovascular symptoms: Negative except as documented in HPI. Gastrointestinal symptoms: Negative except as documented in HPI. Genitourinary symptoms: Negative except as documented in HPI. Musculoskeletal symptoms: Negative except as documented in HPI. Neurologic symptoms: Negative except as documented in HPI. Psychiatric symptoms: Negative except as documented in HPI. Endocrine symptoms: Negative except as documented in HPI. PFS ED PFSH: Medical History (Updated 12/19/24 @ 22:03 by Nini Bell MD) Tear of medial meniscus of left knee, current Renal failure Left knee pain No pertinent past medical history NegHx: thyroid, dvt/pe PCP: Tania Gastroparesis Prinzmetal angina Metatarsalgia of both feet Post traumatic stress disorder (PTSD) Hyperlipidemia Coronary 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 Takes Lyrica for the neuropathy. Does take hydrocodone as needed for pain. GERD (gastroesophageal reflux disease) Controlled on medication Anxiety and depression Diagnosed in the and controlled well on medication at this time managed by primary care provider nurse practitioner Nitin. Hypertension Diagnosed in 2018 managed by primary care provider nurse practitioner Nitin Surgical History H/O esophagogastroduodenoscopy (09/01/21) History of coronary angiogram 06/2021 and 05/2022 History of surgery neck lipoma removal- S/P appendectomy 1980-right lower quadrant incision, right ovary and appendix were removed. Hx of breast surgery ductectomy from the left breast done in her late 30s S/P tubal ligation 1982-immediately . History of back surgery Pain pump insertion, removed in 2014 S/P left knee arthroscopy Hx of oophorectomy 1980---right lower quadrant incision-right ovary and appendix were removed when she presented with pain to the emergency room S/P hysterectomy 1985--vaginal hysterectomy with left oophorectomy performed for a uterine mass she was told that there was no cancer but there were some abnormal cells and it was recommended that she have chemotherapy for 6 weeks however she did only 2 weeks and then did not finish the rest of treatment. S/P tonsillectomy and adenoidectomy As a child S/P cholecystectomy Laparoscopic procedure performed in 1992 Family History Mother Heart disease Hypertension Ovarian cancer Diagnosed at age 34 Suicide Thyroid disease Uterine cancer Diagnosed at age 34, unsure of origin Father Heart disease Thyroid disease Sister Thyroid disease Family/Other Thyroid disease [place], granddaughter Other Diabetes Social History Smoking and tobacco/nicotine status: former use of tobacco/nicotine Quit status (tobacco/nicotine): has quit using Second hand smoke exposure: No Alcohol intake: former Substance/Drug Use: never Adopted: No Caregiver/support person: No Lives independently: Yes Housing: House Marital status: Number of children: 2 Highest education level completed: Associate Degree: Occupational, Technical, Vocational Program service: Yes Pets and animals: Yes Sexually active: Yes Do you think of yourself as: Straight/Heterosexual Gricel/Caodaism: Roman Catholic Special gricel needs: No Agree to transfusion: No Physical Exam Narrative: EXAM NARRATIVE: General: Alert, no acute distress. Skin: Warm, dry. Head: Normocephalic, atraumatic. Neck: Supple, trachea midline. Eye: Extraocular movements are intact. Ears, nose, mouth and throat: mucosa moist. Cardiovascular: Regular, Normal peripheral perfusion. Respiratory: Lungs are clear to auscultation, respirations are non-labored, breath sounds are equal, Symmetrical chest wall expansion. Gastrointestinal: Soft, Nontender, Non distended Musculoskeletal: Some swelling, bruising and abrasions on the left knee. No obvious deformity. Range of motion limited secondary to pain. Neurological: Alert and oriented, No focal neurological deficit observed. Psychiatric: Cooperative, appropriate mood & affect. Course Vital Signs: Vital signs: Vital Signs Temperature 97.9 F 12/19/24 18:45 Pulse Rate 63 12/19/24 18:45 Respiratory Rate 18 12/19/24 18:45 Blood Pressure 139/90 12/19/24 20:20 Pulse Oximetry 97 12/19/24 20:20 Oxygen Delivery Me thod Room Air 12/19/24 18:45 MDM - Syncope Medical Decision Making Medical decision making: Differential diagnosis including but not limited to and based on the above HPI, review of systems and physical exam in this patient with syncope: Vasovagal, orthostatics hypotension, cardiac dysrhythmia, myocardial infarction, infection and hypotension, Orders placed to evaluate differential diagnosis based on the above differential, HPI and physical exam Differential diagnosis including but not limited to and based on the above HPI, review of systems and physical exam: patient with fall and head injury with neck pain. Subdural hematoma, subarachnoid hemorrhage, concussion, skull fracture. Also concern for cervical fracture versus cervical strain. Orders placed to evaluate differential diagnosis based on the above differential, HPI and physical exam CT scan of the head and neck were ordered. EKG: Time 1856. Rate 65. Normal sinus rhythm, No ST-T changes, no ectopy, right bundle branch block, This was reviewed and interpreted by myself the ER physician at 1900. Lab Review: Laboratory results were reviewed and interpreted by myself the emergency room physician. No leukocytosis. No anemia. No renal failure. Cardiac markers negative. CT head: No acute intracranial process. no intracranial hemorrhage, no evidence of infarct. no evidence of acute fracture.This was reviewed and interpreted by myself the ER physician. CT of the cervical spine: Degenerative changes. No fracture. Good alignment. No step-offs. This was reviewed and interpreted by myself the emergency room physician. I also reviewed the radiologist report. Chest x-ray: No acute process. No infiltrate. No pneumothorax. This was reviewed and interpreted by myself the emergency room physician. I also reviewed the radiology report. X-ray of the left knee: Concern for a possible tibial plateau fracture. Small effusion. Osteoarthritis. This was reviewed and interpreted by myself the emergency room physician. I also reviewed the radiology report. Consultation: I spoke with Dr. Jacobs who is on-call for orthopedics. He recommends a CT scan to evaluate this further. CT of the left knee: Effusion but no fracture. This was reviewed and interpreted by myself the emergency room physician. I also reviewed the radiology report. I reviewed the patient's medical record. Reexamination: Patient remained stable. No increased work of breathing. No altered mental status. No focal motor deficits. Assessment and plan: Fall Knee injury Head injury Cervical strain ?Kee in the emergency room. [place]. - Discharged home - Discussed plan with patient. Answered any questions. - Evaluation and treatment of this problem were appropriate in the emergency setting. Lab Data 12/19/24 18:24 12/19/24 18:24 Radiology Impressions Chest X-Ray 12/19/24 18:46 IMPRESSION: No acute findings. Cervical Spine CT 12/19/24 18:50 IMPRESSION: 1. No acute findings. 2. Stable multilevel, multifactorial cervical spine degenerative changes with severe right neural foraminal stenosis at C3-C4. 3. Stable enlarged right thyroid with 2.7 cm nodule. Consider nonemergent thyroid ultrasound. Head CT 12/19/24 18:50 IMPRESSION: No acute intracranial findings. Knee X-Ray 12/19/24 19:28 IMPRESSION: 1. Subtle linear lucency in the lateral tibial plateau. Question nondisplaced fracture. 2. Small knee effusion. 3. Moderate to severe tricompartmental osteoarthritis. Knee CT 12/19/24 21:14 IMPRESSION: 1. Small joint effusion without evidence of acute fracture or dislocation. Specifically, no evidence of tibial plateau fracture. 2. Moderate to severe tricompartmental osteoarthritis with posterior intra-articular bodies. 3. Small Blankenship's cyst. Laboratory Results WBC 8.66 10^3/uL (3.29-11.43) 12/19/24 18:24 RBC 4.50 10^6/uL (3.85-5.65) 12/19/24 18:24 Hgb 13.50 g/dL (11.27-16.99) 12/19/24 18:24 Hct 41.1 % (36-47) 12/19/24 18:24 MCV 91.3 fl (85-98) 12/19/24 18:24 MCH 30.0 pg (27-33) 12/19/24 18:24 MCHC 32.8 g/dL (30-55) 12/19/24 18:24 RDW 13.3 % (12.1-15.1) 12/19/24 18:24 Plt Count 164 10^3/cmm (157-399) 12/19/24 18:24 MPV 12.7 fL (7.4-10.4) H 12/19/24 18:24 Neut % (Auto) 53.0 % 12/19/24 18:24 Lymph % (Auto) 34.5 % 12/19/24 18:24 [place] % (Auto) 9.2 % 12/19/24 18:24 Eos % (Auto) 2.3 % 12/19/24 18:24 Baso % (Auto) 0.7 % 12/19/24 18:24 Neut # (Auto) 4.58 10^3/uL (1.8-7.7) 12/19/24 18:24 Lymph # (Auto) 3.0 10^3/uL (0.8-4.8) 12/19/24 18:24 [place] # (Auto) 0.8 10^3/uL (0.2-0.9) 12/19/24 18:24 Eos # (Auto) 0.2 10^3/uL (0.0-0.8) 12/19/24 18:24 Baso # (Auto) 0.1 10^3/uL (0.0-0.1) 12/19/24 18:24 Nucleated RBC % (auto) 0 % 12/19/24 18:24 Nucleated RBCs # 0.0 /100WBC 12/19/24 18:24 Sodium 142 mmol/L (136-145) 12/19/24 18:24 Potassium 3.9 mmol/L (3.5-5.1) 12/19/24 18:24 Chloride 107 mmol/L (98-107) 12/19/24 18:24 Carbon Dioxide 22 mmol/L (22-29) 12/19/24 18:24 Anion Gap 16.9 (5-19) 12/19/24 18:24 BUN 13 mg/dL (8-23) 12/19/24 18:24 Creatinine 0.7 mg/dL (0.5-0.9) 12/19/24 18:24 GFR Calculation 84.8 mL/min (90-130) L 12/19/24 18:24 Glucose 87 mg/dL (65-115) 12/19/24 18:24 Calculated Osmolality 293 mOsm/kg (285-295) 12/19/24 18:24 Lactic Acid 1.1 mmol/L (0.5-2.2) 12/19/24 19:22 Calcium 8.9 mg/dL (8.5-10.5) 12/19/24 18:24 Total Bilirubin 0.3 mg/dL (0.15-1.2) 12/19/24 18:24 AST 35 U/L (0-32) H 12/19/24 18:24 ALT 36 U/L (0-33) H 12/19/24 18:24 Alkaline Phosphatase 120 U/L (35-105) H 12/19/24 18:24 Troponin T Baseline 9 ng/L (0-10) 12/19/24 18:24 Troponin T 120 Minute 10.62 ng/L (0-10) H 12/19/24 20:05 Delta Troponin T 1.62 ABS# (0-10) 12/19/24 20:05 Total Protein 6.1 g/dL (6.6-8.7) L 12/19/24 18:24 Albumin 3.8 g/dL (3.5-5.2) 12/19/24 18:24 Globulin 2.3 g/dL (1.3-4.6) 12/19/24 18:24 All radiology interpretation(s) finalized by discharge Discharge Plan Discharge Patient Disposition: Home Clinical Impression: Fall, Cervical strain, Knee injury, Head injury Condition: Stable Prescriptions: New hydrocodone-acetaminophen 5-325 mg tablet 1 tab PO Q6H PRN (Reason: pain) Qty: 20 0RF polyethylene glycol 3350 [Miralax] 17 gram/dose powder 17 g PO DAILY Qty: 510 0RF Rx Instructions: Take 1 scoop daily while taking pain medications. No Action prazosin 2 mg capsule 8 mg PO BEDTIME albuterol sulfate [Ventolin HFA] 90 mcg/actuation HFA aerosol inhaler 2 puff inhalation Q6H PRN (Reason: shortness of breath or wheezing) Qty: 8.5 0RF cyproheptadine 4 mg tablet 4 mg PO BEDTIME isosorbide dinitrate 30 mg Tablet 30 mg PO BID Rx Instructions: allow nitrate-free interval of 12-14 hrs per 24-hr period pregabalin [Lyrica] 300 mg Capsule 300 mg PO BID omeprazole 20 mg capsule,delayed release(DR/EC) 20 mg PO BID Eliquis 5 mg Tablet 5 mg PO BID oxybutynin chloride 5 mg tablet 10 mg PO DAILY prochlorperazine maleate 10 mg tablet 10 mg PO DAILY PRN (Reason: Nausea) methocarbamol 750 mg tablet 750 mg PO TID PRN (Reason: Spasms) hydrocodone-acetaminophen 5-325 mg tablet 1 tab PO Q12H MDD 1daily PRN (Reason: Pain) spironolactone 25 mg Tablet 25 mg PO BID Qty: 60 0RF meclizine 25 mg tablet 25 mg PO QID PRN (Reason: dizziness) Qty: 30 0RF Discharge Orders: Discharge ED (Routine); Ordered 12/19/24 Ordered By: Nini Bell Referrals: Anju Taveras FNP [Primary Care Provider, Nurse Practitioner] Discharge Diet: Usual diet Discharge Activity: Increase activity as tolerated Patient Instructions: Head Injury (ED), Opioid Safety, Pain Management, Patient Portal & [place] Instructions Activity Restrictions/Additional Instructions: Thank you for choosing [facility] for your healthcare needs today. You have been screened and evaluated and felt safe for discharge. Health conditions do change or evolve sometimes and as such it is important that you follow up with your Primary Doctor to be re checked, 3-5 days is a general good time frame for follow up. You are always welcome to return to the ED for re assessment if your symptoms are worsening or you have new concerns Print Language: Maori Coding Level of Care Code ED Head Paper Tester for Stefany Morales
--- NOTE | 2024-12-19 18:50 | CTR_ITS ---
PROCEDURE INFORMATION: Exam: CT Cervical Spine Without Contrast Exam date and time: 12/19/2024 7:31 PM Age: 64 years old Clinical indication: Injury or trauma; Fall; Concussion/head injury; Additional info: Fall, neck pain TECHNIQUE: Imaging protocol: Computed tomography of the cervical spine without contrast. Radiation optimization: All CT scans at this facility use at least one of these dose optimization techniques: automated exposure control; mA and/or kV adjustment per patient size (includes targeted exams where dose is matched to clinical indication); or iterative reconstruction. COMPARISON: CT cervical spin wo con* [id number] 07/05/2024 9:11 AM RADIATION DOSE METRICS: Total DLP (mGy-cm): 259.4 FINDINGS: Bones: No acute fracture. Normal alignment. Stable mild asymmetric right C6-C7 facet joint widening. Stable multilevel, multifactorial degenerative changes with severe right and moderate to severe left neural foraminal stenosis at C3-C4 and moderate to severe bilateral neural foraminal stenosis at C4-C5. Moderate bilateral neural foraminal stenosis at C5-C6. No severe spinal canal stenosis. Lungs: Lung apices are unremarkable. Thyroid: Stable enlarged right thyroid with 2.7 cm nodule. Soft tissues: Unremarkable. CT/CT cervical spin wo con* [id number] IMPRESSION: 1. No acute findings. 2. Stable multilevel, multifactorial cervical spine degenerative changes with severe right neural foraminal stenosis at C3-C4. 3. Stable enlarged right thyroid with 2.7 cm nodule. Consider nonemergent thyroid ultrasound.
--- NOTE | 2024-12-19 18:50 | CTR_ITS ---
PROCEDURE INFORMATION: Exam: CT Head Without Contrast Exam date and time: 12/19/2024 7:31 PM Age: 64 years old Clinical indication: Injury or trauma; Fall; Concussion/head injury; With loss of consciousness; Additional info: Fall, head injury TECHNIQUE: Imaging protocol: Computed tomography of the head without contrast. Radiation optimization: All CT scans at this facility use at least one of these dose optimization techniques: automated exposure control; mA and/or kV adjustment per patient size (includes targeted exams where dose is matched to clinical indication); or iterative reconstruction. COMPARISON: 1. CT head wo con* [id number] 07/05/2024 9:[address] head wo con* [id number] 10/16/2024 3:22 PM RADIATION DOSE METRICS: Total DLP (mGy-cm): 1187.6 FINDINGS: Brain: Diffuse cerebral atrophy, consistent with patient's age. No hemorrhage. No evidence of acute territorial infarct. Mild bilateral cerebral white matter hypoattenuation likely on the basis of chronic microvascular ischemic change. No mass effect. Cerebral ventricles: Ventricles are in proportion to the degree of atrophy. Pituitary gland and sella: Partially empty sella, stable. Paranasal sinuses: Small left maxillary sinus fluid level, stable. Visualized sinuses are otherwise clear. Mastoid air cells: Visualized mastoid air cells are well aerated. Orbital cavities: Bilateral lens replacement. Bones: No acute fracture. Hyperostosis frontalis interna. Soft tissues: Unremarkable. CT/CT head wo con* [id number] IMPRESSION: No acute intracranial findings.
[2024-12-19 19:00] LABS: Hematocrit 41.1 % (36-47); Hemoglobin 13.50 g/dL (11.27-16.99); Mean Corpuscular HGB Conc 32.8 g/dL (30-55); Mean Corpuscular Hemoglobin 30.0 pg (27-33); Mean Corpuscular Volume 91.3 fl (85-98); Nucleated Red Blood Cells % 0 %; Platelet Count 164 10^3/cmm (157-399); Red Blood Count 4.50 10^6/uL (3.85-5.65); White Blood Count 8.66 10^3/uL (3.29-11.43)
[2024-12-19 19:18] VITALS: BP 144/85; O2SAT 94
[2024-12-19 19:19] LABS: Troponin(5th) Baseline 9 ng/L (0-10)
[2024-12-19 19:23] LABS: Alanine Aminotransferase 36 U/L (0-33); Albumin Level 3.8 g/dL (3.5-5.2); Alkaline Phosphatase 120 U/L (35-105); Anion Gap 16.9 (5-19); Aspartate Amino Transferase 35 U/L (0-32); Blood Urea Nitrogen 13 mg/dL (8-23); Calcium 8.9 mg/dL (8.5-10.5); Carbon Dioxide 22 mmol/L (22-29); Chloride 107 mmol/L (98-107); Creatinine Clr Calc Pharmacy 103.5153; Globulin 2.3 g/dL (1.3-4.6); Glucose 87 mg/dL (65-115); Osmolality Calculated 293 mOsm/kg (285-295); Potassium 3.9 mmol/L (3.5-5.1); Sodium 142 mmol/L (136-145); Total Protein 6.1 g/dL (6.6-8.7)
--- NOTE | 2024-12-19 19:28 | XRR_ITS ---
PROCEDURE INFORMATION: Exam: XR Left Knee Exam date and time: 12/19/2024 7:41 PM Age: 64 years old Clinical indication: Pain; Knee; Left; Additional info: Fall, knee pain TECHNIQUE: Imaging protocol: Radiologic exam of the left knee. Views: 3 views. COMPARISON: MR knee LT wo con* [id number] 07/21/2023 7:23 AM FINDINGS: Bones/joints: Bones are osteopenic. Knee alignment is normal. There is a subtle horizontal lucency visible in the lateral tibial plateau on the oblique view. Question fracture of the tibial plateau. No fracture is visible on the lateral view. Small joint effusion is suspected. Moderate femorotibial joint space narrowing and large tricompartmental osteophytes. Soft tissues: Visible soft tissues are unremarkable. XR/XR knee LT 3V* [id number] IMPRESSION: 1. Subtle linear lucency in the lateral tibial plateau. Question nondisplaced fracture. 2. Small knee effusion. 3. Moderate to severe tricompartmental osteoarthritis.
[2024-12-19 20:04] LABS: Lactic Sepsis W/Reflex 1.1 mmol/L (0.5-2.2)
[2024-12-19 20:20] VITALS: BP 139/90; O2SAT 97
--- NOTE | 2024-12-19 20:46 | ECG_ITS ---
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 Measurements Intervals [place] Rate: 66 P: 35 DC: 168 QRS: -39 QRSD: 161 T: 12 QT: 446 QTc: 467 Interpretive Statements SINUS RHYTHM LEFT AXIS DEVIATION [QRS AXIS < -30] RIGHT BUNDLE BRANCH BLOCK [120+ ms QRS DURATION, UPRIGHT V1, 40+ ms S IN I/aVL/V4/V5/V6] Compared to ECG 12/19/2024 18:56:13 No significant changes Electronically Signed On 12-21-2024 08:51:53 CDT by Luis A Adair M.D. [email or web address]
[2024-12-19 20:52] LABS: Troponin 5 2HR 10.62 ng/L (0-10); Troponin 5 2HR Delta 1.62 ABS# (0-10)
--- NOTE | 2024-12-19 21:14 | CTR_ITS ---
PROCEDURE INFORMATION: Exam: CT Left Lower Extremity Without Contrast, Knee Exam date and time: 12/19/2024 9:23 PM Age: 64 years old Clinical indication: Injury or trauma; Fall; Blunt trauma; Knee; Left; Additional info: Possible tibial plateau fracture TECHNIQUE: Imaging protocol: CT of the left lower extremity without contrast was performed. Exam focused on the knee. Radiation optimization: All CT scans at this facility use at least one of these dose optimization techniques: automated exposure control; mA and/or kV adjustment per patient size (includes targeted exams where dose is matched to clinical indication); or iterative reconstruction. COMPARISON: 1. CR (LOW EXM, ) 12/19/2024 7:41 PM 2. MR knee LT wo con* [id number] 07/21/2023 7:23 AM RADIATION DOSE METRICS: Total DLP (mGy-cm): 317.5 FINDINGS: Bones/joints: Bony demineralization without evidence of acute fracture or dislocation. Moderate to severe tricompartmental nonuniform joint space narrowing and osteophytosis greatest at the medial compartment with subchondral sclerosis. Small joint effusion and posterior intra-articular bodies. Minimal vacuum phenomenon noted at the joint space. Small Blankenship's cyst redemonstrated. Soft tissues: Mild soft tissue swelling about the knee, to include along the imaged posterior calf compartment fascial planes. CT/CT knee LT wo con* [id number] IMPRESSION: 1. Small joint effusion without evidence of acute fracture or dislocation. Specifically, no evidence of tibial plateau fracture. 2. Moderate to severe tricompartmental osteoarthritis with posterior intra-articular bodies. 3. Small Blankenship's cyst.
[2024-12-19] MEDS: HYDROmorphone 0.5 MG/0.5 ML INJ IVP (21:15)
[2024-12-19 22:13] VITALS: BP 115/60; PULSE 56; RESP 16; O2SAT 96
== END 2024-12-19 22:14 | disposition home or self-care (01) ==
PROVIDERS: Emergency Provider Emergency Medicine; PCP Nurse Practitioner
DX: S09.90XA Unspecified injury of head, initial encounter (principal); S16.1XXA Strain of muscle, fascia and tendon at neck level, initial encounter; S89.92XA Unspecified injury of left lower leg, initial encounter; Z79.01 Long term (current) use of anticoagulants; Z87.891 Personal history of nicotine dependence; E78.5 Hyperlipidemia, unspecified; I25.10 Atherosclerotic heart disease of native coronary artery without angina pectoris; E11.40 Type 2 diabetes mellitus with diabetic neuropathy, unspecified; I10 Essential (primary) hypertension; W19.XXXA Unspecified fall, initial encounter
CPT/HCPCS: 36415; 70450; 71045; 72125; 73562; 73700; 80053; 83605; 84484; 85025; 93005; 96374; 99285; J1171

== ENCOUNTER 2024-12-30 09:39 | Inpatient (IN) | payer OTHER, SELFPAY ==
[2024-12-30] VITALS (8 sets, daily range): BP systolic 97–161; BP diastolic 52–81; PULSE 52–111; RESP 18; TEMP 36.7; O2SAT 95–99; BMI 36.0; BMI 36.6
--- OUTSIDE RECORDS SUMMARY | 2024-12-30 09:42 | XMS_ITS | Encounter Summary ---
[id number] Address [address] Attn: [place] [address] Care Team Providers Care Supervisor Warping Department Name Role Phone Nayeli Gonzales MD Primary Care Provider [phone]- [phone] Encounter Details Date Type Department Care Team (Late st Contact Info) Description 12/11/2006 Outpatient Historical Jorge L Garza MD NO ADDRESS ON FILE Social History Tobacco Use Types Packs/Day Years Used Date Smoking Tobacco: Never Assessed Comments Unknown Sex and Gender Information Value Date Recorded Sex Assigned at Not on file 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
--- OUTSIDE RECORDS SUMMARY | 2024-12-30 09:42 | XMS_ITS | Clinical Summary ---
Author Organization [employer] [facility] Address [address] Attn: [place] [address] Care Team Providers Care Network Engineer Administrator Name Role Phone Nayeli Gonzales MD Primary Care Provider [phone]- [phone] Allergies Active Allergy Reactions Criticality Noted Date Comments Tetracycline Rash,Swelling High 08/23/2010 Trouble swallowing Trazodone Other (See Comments) High 08/23/2010 paralysis Medications cpap medical associate CPAP @ [address] [facility] with heated humidifier. 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
--- OUTSIDE RECORDS SUMMARY | 2024-12-30 09:42 | XMS_ITS | Encounter Summary ---
Author Organization [facility] Address [address] [place] [address] Care Team Providers Care Anesthesiologist Name Role Phone Nayeli Gonzales MD Primary Care Provider +1- [phone] Encounter Details Date Type Department Care Team (Latest Contact Info) Description 11/22/1999 Outpatient Historical [facility] Jorge L Kam Jr., MD [address] [place] [phone] Sprain of ankle, unspecified site (Primary Dx) Social History Tobacco Use Types Packs/Day Years Used Date Smoking Tobacco: Never Assessed Comments Unknown Sex and Gender Information Value Date Recorded Sex Assigned at Not on file 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
--- OUTSIDE RECORDS SUMMARY | 2024-12-30 09:42 | XMS_ITS | Encounter Summary ---
Author Organization [facility] Address [address] [place] [address] Care Team Providers Care Sterilization Specialist Name Role Phone Nayeli Gonzales MD Primary Care Provider +1- [phone] Encounter Details Date Type Department Care Team (Latest Contact Info) Description 09/24/1999 Outpatient Historical [facility] Josias Lacy NO ADDRESS ON FILE Conjunctivitis unspecified (Primary Dx) Social History Tobacco Use Types Packs/Day Years Used Date Smoking Tobacco: Never Assessed Comments Unknown Sex and Gender Information Value Date Recorded Sex Assigned at Not on file 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
--- OUTSIDE RECORDS SUMMARY | 2024-12-30 09:42 | XMS_ITS | Clinical Summary ---
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 Gender Identity Not on file Sexual Orientation Not on file Last Filed Vital Signs Vital Sign Reading Time Taken Comments Blood Pressure 124/82 06/25/2010 1:14 PM CELL PREPARER Pulse 62 06/25/2010 1:14 PM CELL PREPARER Temperature 36.6 C (97.9 F) 08/23/2010 1:13 PM CDT Respiratory Rate 16 06/25/2010 1:14 PM CELL PREPARER Oxygen Saturation 97% 06/25/2010 1:14 PM CELL PREPARER Inhaled Oxygen Concentration - - Weight 122 [...] (1 - 1-dose 75+ series) 2037 Insurance [facility] Care Teams Potato Chip Fryer Relationship Specialty Start Date End Date Nayeli Gonzales MD [address] [place] [address] PCP - General Family Practice 06/22/10
--- OUTSIDE RECORDS SUMMARY | 2024-12-30 09:42 | XMS_ITS | Encounter Summary ---
Author Organization [facility] Address [address] [place] [address] Care Team Providers Care Machine Maintenance Supervisor Name Role Phone Nayeli Gonzales MD Primary Care Provider +1- [phone] Encounter Details Date Type Department Care Team (Latest Contact Info) Description 09/13/1999 Outpatient Historical [facility] Jorge L Kam Jr., MD [address] [place] [phone] Attention to dressings and sutures (Primary Dx) Social History Tobacco Use Types Packs/Day Years Used Date Smoking Tobacco: Never Assessed Comments Unknown Sex and Gender Information Value Date Recorded Sex Assigned at Not on file 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
--- OUTSIDE RECORDS SUMMARY | 2024-12-30 09:43 | XMS_ITS | Encounter Summary ---
Author Organization [facility] Address [address] [place] [address] Care Team Providers Care Professor Of Violin Name Role Phone Nayeli Gonzales MD Primary Care Provider +1- [phone] Encounter Details Date Type Department Care Team (Latest Contact Info) Description 10/07/1998 Outpatient Historical [facility] Josias Lacy NO ADDRESS ON FILE Unspecified disorder of skin and subcutaneous tissue (Primary Dx) Social History Tobacco Use Types Packs/Day Years Used Date Smoking Tobacco: Never Assessed Comments Unknown Sex and Gender Information Value Date Recorded Sex Assigned at Not on file 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
--- OUTSIDE RECORDS SUMMARY | 2024-12-30 09:43 | XMS_ITS | Encounter Summary ---
Author Organization [facility] Address [address] [place] [address] Care Team Providers Care Stitch Bonding Machine Drawer In Name Role Phone Nayeli Gonzales MD Primary Care Provider +1- [phone] Encounter Details Date Type Department Care Team (Latest Contact Info) Description 03/23/1998 Outpatient Historical [facility] Grzegorz Duoglas MD [address] [phone] Other postprocedural status(V45.89) (Primary Dx) Social History Tobacco Use Types Packs/Day Years Used Date Smoking Tobacco: Never Assessed Comments Unknown Sex and Gender Information Value Date Recorded Sex Assigned at Not on file 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
--- OUTSIDE RECORDS SUMMARY | 2024-12-30 09:43 | XMS_ITS | Encounter Summary ---
Author Organization [facility] Address [address] [place] [address] Care Team Providers Care Commercial Accountant Name Role Phone Nayeli Gonzales MD Primary Care Provider +1- [phone] Encounter Details Date Type Department Care Team (Latest Contact Info) Description 07/26/1999 Outpatient Historical [facility] Anthony Quiroga MD [address] [place] [phone] Urinary tract infection, site not specified (Primary Dx); Lumbago; Acute upper respiratory infections of unspecified site Social History Tobacco Use Types Packs/Day Years Used Date Smoking Tobacco: Never Assessed Comments Unknown Sex and Gender Information Value Date Recorded Sex Assigned at Not on file 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
--- OUTSIDE RECORDS SUMMARY | 2024-12-30 09:43 | XMS_ITS | Encounter Summary ---
Author Organization [facility] Address [address] [place] [address] Care Team Providers Care Company Driver Name Role Phone Nayeli Gonzales MD Primary Care Provider +1- [phone] Encounter Details Date Type Department Care Team (Latest Contact Info) Description 07/23/1999 Outpatient Historical [facility] Anthony Quiroga MD [address] [place] [phone] Other and unspecified noninfectious gastroenteritis and colitis(558.9) (Primary Dx); Urinary tract infection, site not specified; Symptomatic menopausal or female climacteric states; Nausea alone Social History Tobacco Use Types Packs/Day Years Used Date Smoking Tobacco: Never Assessed Comments Unknown Sex and Gender Information Value Date Recorded Sex Assigned at Not on file 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
--- OUTSIDE RECORDS SUMMARY | 2024-12-30 09:43 | XMS_ITS | Encounter Summary ---
Author Organization [facility] Address [address] [place] [address] Care Team Providers Care Natural Resource Officer Name Role Phone Nayeli Gonzales MD Primary Care Provider +1- [phone] Encounter Details Date Type Department Care Team (Latest Contact Info) Description 03/30/1998 Outpatient Historical [facility] Grzegorz Douglas MD [address] [phone] Other postprocedural status(V45.89) (Primary Dx) Social History Tobacco Use Types Packs/Day Years Used Date Smoking Tobacco: Never Assessed Comments Unknown Sex and Gender Information Value Date Recorded Sex Assigned at Not on file 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
--- OUTSIDE RECORDS SUMMARY | 2024-12-30 09:43 | XMS_ITS | Encounter Summary ---
Author Organization [facility] Address [address] [place] [address] Care Team Providers Care Fraud Representative Name Role Phone Nayeli Gonzales MD Primary Care Provider +1- [phone] Encounter Details Date Type Department Care Team (Latest Contact Info) Description 04/15/1999 Outpatient Historical [facility] Anthony Quiroga MD [address] [place] [phone] Ganglion of joint (Primary Dx) Social History Tobacco Use Types Packs/Day Years Used Date Smoking Tobacco: Never Assessed Comments Unknown Sex and Gender Information Value Date Recorded Sex Assigned at Not on file 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
--- OUTSIDE RECORDS SUMMARY | 2024-12-30 09:43 | XMS_ITS | Encounter Summary ---
Author Organization [facility] Address [address] [place] [address] Care Team Providers Care Retail Wireless Associate Name Role Phone Nayeli Gonzales MD Primary Care Provider +1- [phone] Encounter Details Date Type Department Care Team (Latest Contact Info) Description 06/03/2007 [facility] 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
--- OUTSIDE RECORDS SUMMARY | 2024-12-30 09:43 | XMS_ITS | Patient Health Record ---
Author Organization [facility] Address [address] [place], [place] [address] Care Team Providers Care Admissions Clinician Name Role Phone Keane RESIDENTIAL MENTAL HEALTH WORKERLacey Primary Care Provider Unavailabl e Allergies Allergen [...] 40 mg 1 tab orally once a day; Duration: 30 day(s) Active OxyCONTIN 40 mg 1 tab po orally Q8H prn pain Active Percocet 10/325 mg 1 tab po orally Q4H prn breakthrough pain Active Neurontin 300 mg 1 cap po orally BID Active ALPRAZolam 0.5 mg 1/2-1 tab orally QHS , PRN; Duration: 30 day(s) Active pantoprazole 40 mg 1 tab orally BID; Duration: 30 day(s) Active promethazine 25 mg 1 tab orally Q6H Active nitroglycerin 6.5 mg 1 cap orally BID; Duration: 30 day(s) Active Zofran 4 mg 1 tab po orally Q6H prn nausea Active potassium chloride 10 mEq 1 tab orally 2 times a day; Duration: 30 day(s) Active metoprolol 25 mg 1/2 tab orally 2 carlos es a day; Duration: 30 day(s) Active Problems Problem Type SNOMED Code ICD Code Onset Dates Problem Status W/U Status Risk Notes Problem Thoracic spondylosis without myelopathy (308278462) Thoracic spondylosis without myelopathy (721.2) Active confirmed Problem Spasm (34420603) Muscle spasm (728.85) Active confirmed Problem Hypersomnia (17331317) Hypersomnia (780.54) Active confirmed Problem Sleep dysfunction with sleep stage disturbance (383431981) Dysfunctions associated with sleep stages or arousal from sleep (780.56) Active confirmed Problem Postoperative seroma (984457466) Seroma complicating a procedure (998.13) Active confirmed Problem Low back pain (565021339) Low back pain (724.2) Active confirmed Problem Pain in thoracic spine (483770005) Thoracic pain (724.1) Active confirmed Problem Displacement of lumbar intervertebral disc without myelopathy (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) Lumbar (w/out myelopathy) intervertebral disc disorder (722.10) Active confirmed Problem Long-term drug therapy (990267570) LONG-TERM USE MEDS NEC (V58.69) Active confirmed R/O substance abuse Problem Anxiety state (320413622) Anxiety State, other, specified: procedure related (300.09) Active confirmed Problem Displacement of thoracic intervertebral disc without myelopathy (64256797) Thoracic disc (w/out myelopathy) disorder (722.11) Active confirmed Problem Lumbar spinal stenosis (58139204) Lumbar spinal stenosis (724.02) Active confirmed Problem Lumbosacral spondylosis without myelopathy (85202110) Lumbosacral spondylosis without myelopathy (721.3) Active confirmed [...]
--- OUTSIDE RECORDS SUMMARY | 2024-12-30 09:43 | XMS_ITS | Patient Health Record ---
Author Organization [facility] Address [address] [place] [address] Care Team Providers Care Helicopter Officer Name Role Phone Anju Pitt Primary Care Provid er Unavailable Devin Gonzalez Unavailable [phone] Melvina York Unavailable Allergies Allergen (clinical drug ingredient) Drug/Non Drug Allergy documented on EMR Reaction Allergy Type Onset Date Status trazodone traZODone HCl anaphylaxis Drug Allergy A ctive Zofran Unknown Drug Allergy Active Flu Virus Vaccine Unknown Drug Allergy Active tetracycline Tetracycline anaphylaxis Drug Allergy Active Results Component Value Reference Range Flag Notes Urine Drug Screen (cup read) - 98348 Reviewed date:11/06/2024 03:29:19 PM Interpretation: Performing Lab: Notes/Report: AMP - SONAL - BUP - BZO - MDMA - OPI - PCP - OXY - MTD - MAMP - Urine Confirmation Panel (in strument) - 46512 Reviewed date:11/12/2024 02:41:23 PM Interpretation: Performing Lab: [...] the U.S. Food and Drug Administration. Pregabalin >65195 <225 ng/mL > This test was developed [...] Lab: Notes/Report: MRI Thoracic Spine w/o Cont MRI Thoracic Spine w/o Cont- 34145 (Not yet reviewed by provider) Interpretation: Performing Lab: Notes/Report: xai=[id number]&org=iSite MRI Lumbar Spine w/o Cont-[id number] (Not yet reviewed by provider) Interpretation: Performing Lab: Notes/Report: lok=[id number]&org=[facility]Site Tox Results Reviewed date:11/12/2024 02:53:15 PM Interpretation: Performing Lab: Notes/Report: [facility] MRI Thoracic Spine w/o C [id number] Reviewed date:11/04/2024 10:40:41 AM Interpretation: Performing Lab: Notes/Report: See Below For Report MRI Thoracic Spine w/o Cont Loreta Weber 10/10/2024 01:00:41 PM CDT > [place] Auth Dates: 09/20/2024 to 04/13/2025 Read See Below For Report [facility] MRI Lumbar Spine w/o Con [id number] Reviewed date:11/04/2024 10:40:34 AM Interpretation: Performing Lab: Notes/Report: See Below For Report Technique: Sagittal and axial T1 and T2 and sagittal STIR images of Loreta Weber 10/10/2024 12:51:11 PM CDT > [place] Auth Dates: 09/20/2024 to 04/13/2025 Read See Below For Report Schedule Confirmation (Not y et reviewed by provider) Interpretation: Performing Lab: Notes/Report: MRI Thoracic Spine w/o Cont Schedule Confirmation (Not y et reviewed by provider) Interpretation: Performing Lab: Notes/Report: MRI Lumbar Spine w/o Cont Reason For Referral No Information Medications Medication [...] Status Risk Notes Problem Chronic pain syndrome (675879186) Chronic pain syndrome (G89.4) Active confirmed Problem Thoracic spondylosis without myelopathy (250251594) Other spondylosis, thoracic region (M47.894) Active confirmed Problem Neurogenic claudication (778195134) Spinal stenosis of lumbar region with neurogenic claudication (M48.062) Active confirmed Problem Lumbar spondylosis (458373488) Lumbar spondylosis (M47.816) Active confirmed Problem Obesity (946228451) Obesity (E66.9) Active confirmed Problem Abnormal gait (99795389) Abnormality of gait and mobility (R26.9) Active confirmed Vital Signs Height-cm 170.18 cm 11/06/2024 Weight-kg 112.49 kg 11/06/2024 Height 67 in 11/06/2024 Weight 248 lbs 11/06/2024 BMI 38.84 kg/m2 11/06/2024 Procedures Procedure Date Ordered Date Performed Result Body Sit e Epidural, Lumbar/Sacral (Cau tripp), w/ imaging guidance - 83782 12/10/2024 12/10/2024-15 Encounters Encounter Location Date Provider Diagnosis [facility] [address] [place] [address] 12/10/2024 Devin Gonzalez Spinal stenosis of lumbar region with neurogenic claudication M48.062 [facility] [place] [address] [place] [address] 11/06/2024 Devin Gonzalez Chronic pain syndrome G89.4 ; Lumbar spondylosis M47.816 ; Abnormality of gait and mobility R26.9 ; Other spondylosis, thoracic region M47.894 ; Spinal stenosis of lumbar region with neurogenic claudication M48.062 ; Obesity E66.9 and halfway (current) use of opiate analgesic Z79.891 [facility] [place] [address] [facility] 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 (ICD-10 - Z79.891) 11/06/2024 Obesity (ICD-10 - E66.9) 11/06/2024 halfway (current) use of opiate analgesic (ICD-10 - [...] Name Order Date MRI Lumbar Spine w/o Cont-[id number] 10/10/19 MRI Thoracic Spine w/o Cont-[id number] 2024 Schedule Confirmation 10/28/2024 Schedule Confirmation 10/28/2024 Schedule Confirmation 10/28/2024 Schedule Confirmation 10/28/2024 Next Appt Details Provider Name:Devin Gonzalez, 01/08/2025 03:20:00 PM, [address] [place], [address], Insurance Providers Payer Name Payer Address Payer Phone Subscriber Number Group Number Insured Name Patient Relationship to Insured Coverage Start Date Coverage End Date [employer] [address] [place] [address] [id number] Randi Kay Self - patient is the insured Medical (General) History Surgical History Surgery Date(Month/Year) hysterectomy appendectomy left knee arthroscopy Pain pump [id number]
--- OUTSIDE RECORDS SUMMARY | 2024-12-30 09:43 | XMS_ITS | Encounter Summary ---
Author Organization [facility] Address [address] [place] [address] Care Team Providers Care Facility Operations Manager Name Role Phone Nayeli Gonzales MD Primary Care Provider +1- [phone] Encounter Details Date Type Department Care Team (Latest Contact Info) Description 09/08/1999 Outpatient Historical [facility] Jorge L Kam Jr., MD [address] [place] [phone] Ingrowing nail (Primary Dx) Social History Tobacco Use Types Packs/Day Years Used Date Smoking Tobacco: Never Assessed Comments Unknown Sex and Gender Information Value Date Recorded Sex Assigned at Not on file 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
--- OUTSIDE RECORDS SUMMARY | 2024-12-30 09:43 | XMS_ITS | Encounter Summary ---
Author Organization [facility] Address [address] [place] [address] Care Team Providers Care Import/Export Clerk Name Role Phone Nayeli Gonzales MD Primary Care Provider [phone] Encounter Details Date Type Department Care Team (Latest Contact Info) Description 12/24/1998 Outpatient Historical [facility] Anthony Quiroga MD [address] [place] [id number] Bronchitis, not specified as acute or chronic (Primary Dx); Depressive disorder, not elsewhere classified Social History Tobacco Use Types Packs/Day Years Used Date Smoking Tobacco: Never Assessed Comments Unknown Sex and Gender Information Value Date Recorded Sex Assigned at Not on file Legal Sex Female 3:58 AM [employer] Gender Identity Not on file Sexual Orientation Not on file documented as of this encounter Plan of Treatment Not on file documented as of this encounter Visit Diagnoses Diagnosis Bronchitis, not specified as acute or chronic- Primary Depressive disorder, not elsewhere classified documented in this encounter Care Teams Import/Export Clerk Relationship Specialty Start Date End Date Nayeli Gonzales MD [address] [place] [address] PCP - General Family Practice 06/22/10 documented as of this encounter
--- NOTE | 2024-12-30 09:47 | ECG_ITS ---
[facility] Test Date: 2024-12-30 Pat Name: Randi Kay Department: Room: Gender: Female Blow Mold Operator: : 1960 Requested By: John Coleman Order Number: [id number] Reading MD: ARIANA DUNCAN Measurements Intervals [place] Rate: 62 P: 52 MS: 153 QRS: -42 QRSD: 142 T: -10 QT: 423 QTc: 432 Interpretive Statements SINUS RHYTHM LEFT AXIS DEVIATION [QRS AXIS < -30] RIGHT BUNDLE BRANCH BLOCK [120+ ms QRS DURATION, UPRIGHT V1, 40+ ms S IN I/aVL/V4/V5/V6] Compared to ECG 12/19/2024 21:11:11 No significant changes Electronically Signed On 12-30-2024 13:53:51 CDT by ARIANA DUNCAN [email or web address]
--- NOTE | 2024-12-30 09:47 | XR_ITS ---
WS: [id number] XR chest 1V portable [id number] REASON FOR EXAM: dyspnea/cough FINDINGS: Chest is unchanged compared to 12/19/2024. There is mild cardiomegaly. There is moderate tortuosity and ectasia of the thoracic aorta. There is no acute pulmonary parenchymal or pleural abnormality. There is moderate degenerative spondylosis in the thoracic spine. XR/XR chest 1V portable [id number] IMPRESSION: Stable chest without acute abnormality.
--- NOTE | 2024-12-30 09:53 | ED_ITS ---
HPI - Weakness 2 General: Chief complaint: Weakness Stated complaint: dizzy, low bp, confusion Time Seen by Provider: 12/30/24 09:46 History of Present Illness: 64-year-old female presents to the [facility] ency room generally feeling weak. Patient was up and walking around at work got very weak felt like she was going to pass out this time someone managed to get her chair before she fell down she did not strike her head there is no loss conscious she denies fever sweats or chills. Was at work felt weak states in the past had problems with low potassium. No chest pain no shortness of breath. No chest pain no shortness of breath. She had a similar episode a week ago where she fell face down after she had been standing and walking she was seen then CT head did not show any acute injury Associated symptoms: Denies chest pain, chills, dysuria or fever(s) Related Data Home Medications ?Medication ?Instructions ?Recorded ?Confirmed prazosin 2 mg capsule 8 mg PO BEDTIME 10/18/2109/20 pregabalin 300 mg capsule (Lyrica) 300 mg PO BID 06/1712/30/24 cyproheptadine 4 mg tablet 4 mg PO BEDTIME 08/11/23 apixaban 5 mg tablet (Eliquis) 5 mg PO BID 07/18/24 omeprazole 20 mg capsule,delayed 20 mg PO BID 07/18/24 12/30/24 release isosorbide dinitrate 30 mg tablet 30 mg PO BID 5 12/30/24 oxybutynin chloride 5 mg tablet 10 mg PO DAILY 5 12/30/24 methocarbamol 750 mg tablet 750 mg PO TID PRN Spasms 0 10/01/24 12/30/24 prochlorperazine maleate 10 mg 10 mg PO DAILY PRN Naus ea 10/01/24 12/30/24 tablet polyethylene glycol 3350 17 17 g PO DAILY PRN constipa tion 12/30/24 12/30/24 gram/dose oral powder (Miralax) Previous Rx's ?Medication ?Instructions ?Recorded albuterol sulfate 90 mcg/actuation 2 puff inhalation Q 6H PRN 01/04/23 aerosol inhaler (Ventolin HFA) shortness of breath or wheezing #8.5 grams spironolactone 25 mg tablet 25 mg PO BID #60 tabs 09/27 08/20 meclizine 25 mg tablet 25 mg PO QID PRN dizziness # 30 tabs 10/24/24 hydrocodone 5 mg-acetaminophen 325 1 tab PO Q6H PRN pa in #20 tabs 12/19/24 mg tablet Allergies Allergy/AdvReac Type Severity Reaction Status Date / Time ondansetron (From Zofran) Allergy Severe Dystonia Verified 12/19/24 18:51 bee venom protein (honey bee) Allergy anaphylaxis Verified 12/19/24 18:51 Influenza Virus Vaccines Allergy anaphylacti Verified 12/19/24 18:51 c mushroom Allergy anaphylaxis Verified 12/19/24 18:51 tetracycline Allergy Rash, Verified 12/19/24 18:51 shortness of breath trazodone Allergy Rash, Verified 12/19/24 18:51 trouble breathing vaccines Allergy ALGY-Anaphy Uncoded 12/19/24 18:51 laxis Review of Systems 2 Const: Denies: fever(s) or chills Card: Denies: chest pain Resp: Denies: dyspnea GI: Denies: abdominal pain : Denies: dysuria, urinary frequency or urinary urgency Musc: Denies: neck pain or back pain Skin/Breast: Denies: rash PFSH ED 2 PFSH: Medical History Tear of medial meniscus of left knee, current Renal failure Left knee pain No pertinent past medical history NegHx: thyroid, dvt/pe PCP: Tania Gastroparesis Prinzmetal angina Metatarsalgia of both feet Post traumatic stress disorder (PTSD) Hyperlipidemia Coronary 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 Takes Lyrica for the neuropathy. Does take hydrocodone as needed for pain. GERD (gastroesophageal reflux disease) Controlled on medication Anxiety and depression Diagnosed in the 1980s and controlled well on medication at this time managed by primary care provider nurse practitioner Nitin. Hypertension Diagnosed in 2017 managed by primary care provider nurse practitioner Nitin Surgical History H/O esophagogastroduodenoscopy (09/01/21) History of coronary angiogram 06/2021 and 05/2022 History of surgery neck lipoma removal- S/P appendectomy 1980-right lower quadrant incision, right ovary and appendix were removed. Hx of breast surgery ductectomy from the left breast done in her late 30s S/P tubal ligation 1982-immediately . History of back surgery Pain pump insertion, removed in 2014 S/P left knee arthroscopy Hx of oophorectomy 1980---right lower quadrant incision-right ovary and appendix were removed when she presented with pain to the emergency room S/P hysterectomy 1985--vaginal hysterectomy with left oophorectomy performed for a uterine mass she was told that there was no cancer but there were some abnormal cells and it was recommended that she have chemotherapy for 6 weeks however she did only 2 weeks and then did not finish the rest of treatment. S/P tonsillectomy and adenoidectomy As a child S/P cholecystectomy Laparoscopic procedure performed in 1992 Family History Mother Heart disease Hypertension Ovarian cancer Diagnosed at age 34 Suicide Thyroid disease Uterine cancer Diagnosed at age 34, unsure of origin Father Heart disease Thyroid disease Sister Thyroid disease Family/Other Thyroid disease [place], granddaughter Other Diabetes Social History Smoking and tobacco/nicotine status: former use of tobacco/nicotine Quit status (tobacco/nicotine): has quit using Second hand smoke exposure: No Alcohol intake: former Substance/Drug Use: never Adopted: No Caregiver/support person: No Lives independently: Yes Housing: House Marital status: Number of children: 2 Highest education level completed: Associate Degree: Occupational, Technical, Vocational Program service: Yes Pets and animals: Yes Sexually active: Yes Do you think of yourself as: Straight/Heterosexual Gricel/Nondenominational: Orthodox Special gricel needs: No Agree to transfusion: No Physical Exam 2 Const: COMMON NORMALS: no acute distress GENERAL APPEARANCE: cooperative and comfortable ORIENTATION/CONSCIOUSNESS: Yes awake, Yes oriented to person, Yes oriented to place and Yes oriented to time HENMT: COMMON NORMALS: normocephalic, atraumatic and hearing grossly normal bilaterally HEAD & SCALP: normocephalic and atraumatic Resp: COMMON NORMALS: normal respiratory effort, No retractions, No use of accessory muscles and clear to auscultation bilaterally AUSCULTATION: clear to auscultation bilaterally Cardio: COMMON NORMALS: regular rate, regular rhythm and No murmurs present (Cardio) RATE: regular rate RHYTHM: regular rhythm GI: COMMON NORMALS: Soft to palpation and No hepatosplenomegaly present A USCULTATION: Yes normoactive bowel sounds PALPATION: Yes Soft to palpation, No Tenderness to palpation present (GI), No Guarding due to palpation present (GI) and Yes No hepatosplenomegaly present Extremity: COMMON NORMALS: normal to inspection, capillary refill normal, no clubbing, cyanosis or edema, no calf tenderness and no pedal edema Neuro: SENSORIUM/ORIENTATION: Yes oriented to person, Yes oriented to place and Yes oriented to time Skin: COMMON NORMALS: no rashes or lesions noted GENERAL SKIN EXAM: no rashes or lesions noted Course 2 Vital Signs: Vital signs: Vital Signs Temperature 98.1 F 12/30/24 09:49 Pulse Rate 52 L 12/30/24 12:30 Respiratory Rate 18 12/30/24 09:49 Blood Pressure 129/81 12/30/24 12:30 Pulse Oximetry 96 12/30/24 12:30 Oxygen Delivery Me thod Room Air 12/30/24 12:30 MDM - Weakness Medical Decision Making Patient previously had pulmonary embolisms she is still taking Eliquis [facility] She has had 2 syncopal episodes now and approximately 2 weeks. These are unexplained. Will admit to observation for further evaluation for syncope. Medical Records I reviewed the patient's medical records. Lab Data I reviewed the patient's lab results. 12/30/24 09:51 12/30/24 09:51 Radiology Impressions Chest X-Ray 12/30/24 09:47 IMPRESSION: Stable chest without acute abnormality. Chest CTA 12/30/24 10:47 IMPRESSION: 1. No pulmonary embolism. 2. No pneumonia. 3. Moderate LEFT ventricular enlargement. 4. No pneumothorax. 5. Prior cholecystectomy. Laboratory Results WBC 9.87 10^3/uL (3.29-11.43) 12/30/24 09:51 RBC 4.62 10^6/uL (3.85-5.65) 12/30/24 09:51 Hgb 13.80 g/dL (11.27-16.99) 12/30/24 09:51 Hct 42.2 % (36-47) 12/30/24 09:51 MCV 91.3 fl (85-98) 12/30/24 09:51 MCH 29.9 pg (27-33) 12/30/24 09:51 MCHC 32.7 g/dL (30-55) 12/30/24 09:51 RDW 13.4 % (12.1-15.1) 12/30/24 09:51 Plt Count 159 10^3/cmm (157-399) 12/30/24 09:51 MPV 12.2 fL (7.4-10.4) H 12/30/24 09:51 Neut % (Auto) 58.1 % 12/30/24 09:51 Lymph % (Auto) 29.1 % 12/30/24 09:51 [place] % (Auto) 9.7 % 12/30/24 09:51 Eos % (Auto) 1.9 % 12/30/24 09:51 Baso % (Auto) 0.7 % 12/30/24 09:51 Neut # (Auto) 5.73 10^3/uL (1.8-7.7) 12/30/24 09:51 Lymph # (Auto) 2.9 10^3/uL (0.8-4.8) 12/30/24 09:51 [place] # (Auto) 1.0 10^3/uL (0.2-0.9) H 12/30/24 09:51 Eos # (Auto) 0.2 10^3/uL (0.0-0.8) 12/30/24 09:51 Baso # (Auto) 0.1 10^3/uL (0.0-0.1) 12/30/24 09:51 Nucleated RBC % (auto) 0 % 12/30/24 09:51 Nucleated RBCs # 0.0 /100WBC 12/30/24 09:51 Sodium 143 mmol/L (136-145) 12/30/24 09:51 Potassium 3.7 mmol/L (3.5-5.1) 12/30/24 09:51 Chloride 110 mmol/L (98-107) H 12/30/24 09:51 Carbon Dioxide 21 mmol/L (22-29) L 12/30/24 09:51 Anion Gap 15.7 (5-19) 12/30/24 09:51 BUN 14 mg/dL (8-23) 12/30/24 09:51 Creatinine 0.8 mg/dL (0.5-0.9) 12/30/24 09:51 GFR Calculation 72.7 mL/min (90-130) L 12/30/24 09:51 Glucose 147 mg/dL (65-115) H 12/30/24 09:51 Calculated Osmolality 299 mOsm/kg (285-295) H 12/30/24 09:51 Calcium 8.7 mg/dL (8.5-10.5) 12/30/24 09:51 Total Bilirubin 0.4 mg/dL (0.15-1.2) 12/30/24 09:51 AST 31 U/L (0-32) 12/30/24 09:51 ALT 31 U/L (0-33) 12/30/24 09:51 Alkaline Phosphatase 149 U/L (35-105) H 12/30/24 09:51 Troponin T Baseline 16 ng/L (0-10) H 12/30/24 09:51 Troponin T 120 Minute 15.76 ng/L (0-10) H 12/30/24 12:01 Delta Troponin T -0.24 ABS# (0-10) L 12/30/24 12:01 Total Protein 6.2 g/dL (6.6-8.7) L 12/30/24 09:51 Albumin 3.5 g/dL (3.5-5.2) 12/30/24 09:51 Globulin 2.7 g/dL (1.3-4.6) 12/30/24 09:51 All radiology interpretation(s) finalized by discharge Discharge Plan Discharge Patient Disposition: Placed in Observation Clinical Impression: Syncope, Hypertension Coding Level of Care Code ED Burr Sander for Stefany Morales
[2024-12-30 10:01] LABS: Hematocrit 42.2 % (36-47); Hemoglobin 13.80 g/dL (11.27-16.99); Mean Corpuscular HGB Conc 32.7 g/dL (30-55); Mean Corpuscular Hemoglobin 29.9 pg (27-33); Mean Corpuscular Volume 91.3 fl (85-98); Nucleated Red Blood Cells % 0 %; Platelet Count 159 10^3/cmm (157-399); Red Blood Count 4.62 10^6/uL (3.85-5.65); White Blood Count 9.87 10^3/uL (3.29-11.43)
[2024-12-30 10:25] LABS: Alanine Aminotransferase 31 U/L (0-33); Albumin Level 3.5 g/dL (3.5-5.2); Alkaline Phosphatase 149 U/L (35-105); Anion Gap 15.7 (5-19); Aspartate Amino Transferase 31 U/L (0-32); Blood Urea Nitrogen 14 mg/dL (8-23); Calcium 8.7 mg/dL (8.5-10.5); Carbon Dioxide 21 mmol/L (22-29); Chloride 110 mmol/L (98-107); Creatinine Clr Calc Pharmacy 90.5759; Globulin 2.7 g/dL (1.3-4.6); Glucose 147 mg/dL (65-115); Osmolality Calculated 299 mOsm/kg (285-295); Potassium 3.7 mmol/L (3.5-5.1); Sodium 143 mmol/L (136-145); Total Protein 6.2 g/dL (6.6-8.7)
--- NOTE | 2024-12-30 10:47 | CT_ITS ---
WS: [id number] CT CHEST ANGIOGRAPHY WITH REFORMATS HISTORY: History PE TECHNIQUE: Contiguous axial images are obtained through the chest during arterial injection of intravenous contrast. Images are reconstructed to evaluate the pulmonary arteries. MIP imaging also reviewed. All CT scans at [facility] use at least one of these dose optimization techniques: automated exposure control; mA and/or kV adjustment per patient size (includes targeted exams where dose is matched to clinical indication); or iterative reconstruction. CONTRAST: Omnipaque 350; 100 mL IV. DLP: 433.17 mGy.cm COMPARISON: 07/26/2024 Mild breathing motion artifact. Good opacification of the central pulmonary arteries. No acute emboli identified. Opacification of the arteries becomes limited by the motion artifact beyond the segmental branches. No emboli identified. Previously described emboli have resolved. No RIGHT heart strain. Minimal atherosclerosis aorta. LEFT ventricular enlargement. No pericardial or pleural effusions. Mild increased attenuation throughout both lungs is likely related to breathing motion artifact. No dense areas of consolidation. No pneumothorax. No mediastinal or hilar adenopathy. Prior cholecystectomy. Mild hyperplasia of each adrenal glands, no change. Prior gastric bypass surgery. Increase in thoracic kyphosis and spondylosis. Several thoracic vertebral bodies are bridged by osteophytosis. Mild nodularity and enlargement of the RIGHT thyroid. CT/CT angio chest PE protcl [id number] IMPRESSION: 1. No pulmonary embolism. 2. No pneumonia. 3. Moderate LEFT ventricular enlargement. 4. No pneumothorax. 5. Prior cholecystectomy.
[2024-12-30 10:59] LABS: Troponin(5th) Baseline 16 ng/L (0-10)
[2024-12-30] MEDS: iohexol 350 mg/mL 500 mL Btl (per mL) IV (11:10)
[2024-12-30 12:41] LABS: Troponin 5 2HR 15.76 ng/L (0-10); Troponin 5 2HR Delta -0.24 ABS# (0-10)
--- NOTE | 2024-12-30 13:44 | ECG_ITS ---
[facility] Date: 2024-12-30 Pat Name: Randi Kay Department: Room: Gender: Female Ruby Software Developer: : 1960 Requested By: John Coleman Order Number: [id number] Reading MD: ARIANA DUNCAN Measurements Intervals [place] Rate: 48 P: 52 [place]: 155 QRS: -39 QRSD: 149 T: -8 QT: 474 QTc: 428 Interpretive Statements SINUS BRADYCARDIA LEFT AXIS DEVIATION [QRS AXIS < -30] RIGHT BUNDLE BRANCH BLOCK [120+ ms QRS DURATION, UPRIGHT V1, 40+ ms S IN I/aVL/V4/V5/V6] Compared to ECG 12/30/2024 10:00:25 Sinus rhythm no longer present Electronically Signed On 12-30-2024 14:00:55 CDT by ARIANA DUNCAN [email or web address] [id number]
--- NOTE | 2024-12-30 14:00 | PM.HP ---
Providers/Chief Complaint Primary Care Provider: DELMA Lua Chief Complaint: dizzy, low bp, confusion History of Present Illness Randi Kay is a 64 year old woman with a history of Prinzmetal angina (coronary angiograms 2021 & 2022 without obstructive disease), type 2 diabetes mellitus (DM2) status post gastric bypass, hypertension, hyperlipidemia, diabetic nephropathy, gastroparesis, chronic back pain, anxiety, depression, and recent bilateral pulmonary emboli on apixaban. One week ago she sustained a fall with brief loss of consciousness; work-up then (EKG with right bundle branch block, CT head/spine, chest X-ray, knee imaging) revealed no acute intracranial or bony injury and she was discharged. She returns today after suddenly feeling very weak while walking; she sat in a chair before fainting and did not lose consciousness. Denies chest pain or shortness of breath during today?s episode. In the emergency department, orthostatic blood pressures were low-normal (lying 97/52 mmHg, sitting 100/61 mmHg, standing 98/57 mmHg). Basic labs, cardiac enzymes, and chest imaging were unremarkable except alkaline phosphatase 149 U/L; EKG showed left-axis deviation and right bundle branch block with T-wave inversions in III and aVF. She reports occasional chest pressure; yesterday experienced brief typical Prinzmetal chest pain. Home medications include spironolactone (started ~1 month ago for low magnesium/potassium), prazosin for PTSD-related nightmares, and isosorbide mononitrate. No vomiting, diarrhea, fever, chills, cough, dysuria, melena, or hematuria. Denies recent dehydration or heat exposure. Former smoker; denies alcohol and recreational drug use. Review of Systems Const: Denies: fever(s), chills, body aches or malaise ENMT: Denies: throat pain Card: Reports: chest pain, syncope, pre-syncope and orthopnea; Denies: edema Resp: Denies: dyspnea, productive cough, change in phlegm color or hemoptysis GI: Denies: abdominal pain, nausea, vomiting, diarrhea, constipation, hematochezia or melena : Denies: flank pain, urinary frequency or hematuria Musc: Denies: back pain, joint swelling or joint redness Skin/Breast: Denies: rash or new lesions Neuro: Denies: headache(s) or confusion Medications/Allergies Home Medications ?Medication ?Instructions ?Recorded ?Confirmed ?Last Taken ?Type prazosin 2 mg capsule 8 mg PO BEDTIME 10/18/21 12/30/24 12/29/24 History pregabalin 300 mg capsule (Lyrica) 300 mg PO BID 06/17/22 12/30/24 12/30/24 History albuterol sulfate 90 mcg/actuation 2 puff inhalation Q6H PRN 01/04/23 12/30/24 Unknown Rx aerosol inhaler (Ventolin HFA) shortness of breath or wheezing #8.5 grams cyproheptadine 4 mg tablet 4 mg PO BEDTIME 08/11/23 12/30/24 12/29/24 History apixaban 5 mg tablet (Eliquis) 5 mg PO BID 07/18/24 12/30/24 12/30/24 History omeprazole 20 mg capsule,delayed 20 mg PO BID 07/18/24 12/30/24 12/30/24 History release isosorbide dinitrate 30 mg tablet 30 mg PO BID 07/26/24 12/30/24 12/30/24 History oxybutynin chloride 5 mg tablet 10 mg PO DAILY 08/21/24 12/30/24 12/30/24 History methocarbamol 750 mg tablet 750 mg PO TID PRN Spasms 10/01/24 12/30/24 Unknown History prochlorperazine maleate 10 mg 10 mg PO DAILY PRN Nausea 10/01/24 12/30/24 Unknown History tablet spironolactone 25 mg tablet 25 mg PO BID #60 tabs 10/18/24 12/30/24 12/30/24 Rx meclizine 25 mg tablet 25 mg PO QID PRN dizziness #30 tabs 10/24/24 12/30/24 Unknown Rx hydrocodone 5 mg-acetaminophen 325 1 tab PO Q6H PRN pain #20 tabs 12/19/24 12/30/24 Unknown Rx mg tablet polyethylene glycol 3350 17 17 g PO DAILY PRN constipation 12/30/24 12/30/24 Unknown History gram/dose oral powder (Miralax) Allergies Allergy/AdvReac Type Severity Reaction Status Date / Time ondansetron (From Zofran) Allergy Severe Dystonia Verified 12/19/24 18:51 bee venom protein (honey bee) Allergy anaphylaxis Verified 12/19/24 18:51 Influenza Virus Vaccines Allergy anaphylacti Verified 12/19/24 18:51 c mushroom Allergy anaphylaxis Verified 12/19/24 18:51 tetracycline Allergy Rash, Verified 12/19/24 18:51 shortness of breath trazodone Allergy Rash, Verified 12/19/24 18:51 trouble breathing vaccines Allergy ALGY-Anaphy Uncoded 12/19/24 18:51 laxis PFSH Acute PFSH: Medical History Tear of medial meniscus of left knee, current Renal failure Left knee pain No pertinent past medical history NegHx: thyroid, dvt/pe PCP: Tania Gastroparesis Prinzmetal angina Metatarsalgia of both feet Post traumatic stress disorder (PTSD) Hyperlipidemia Coronary 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 Takes Lyrica for the neuropathy. Does take hydrocodone as needed for pain. GERD (gastroesophageal reflux disease) Controlled on medication Anxiety and depression Diagnosed in the and controlled well on medication at this time managed by primary care provider nurse jami Taveras. Hypertension Diagnosed in 2018 managed by primary care provider nurse practitioner Nitin Surgical History H/O esophagogastroduodenoscopy (09/01/21) History of coronary angiogram 06/2021 and 05/2022 History of surgery neck lipoma removal- S/P appendectomy 1980-right lower quadrant incision, right ovary and appendix were removed. Hx of breast surgery ductectomy from the left breast done in her late 30s S/P tubal ligation 1982-immediately . History of back surgery Pain pump insertion, removed in 2014 S/P left knee arthroscopy Hx of oophorectomy 1980---right lower quadrant incision-right ovary and appendix were removed when she presented with pain to the emergency room S/P hysterectomy 1985--vaginal hysterectomy with left oophorectomy performed for a uterine mass she was told that there was no cancer but there were some abnormal cells and it was recommended that she have chemotherapy for 6 weeks however she did only 2 weeks and then did not finish the rest of treatment. S/P tonsillectomy and adenoidectomy As a child S/P cholecystectomy Laparoscopic procedure performed in 1992 Family History Mother Heart disease Hypertension Ovarian cancer Diagnosed at age 34 Suicide Thyroid disease Uterine cancer Diagnosed at age 34, unsure of origin Father Heart disease Thyroid disease Sister Thyroid disease Family/Other Thyroid disease [place], granddaughter Other Diabetes Social History Smoking and tobacco/nicotine status: former use of tobacco/nicotine Quit status (tobacco/nicotine): has quit using Second hand smoke exposure: No Alcohol intake: former Substance/Drug Use: never Adopted: No Caregiver/support person: No Lives independently: Yes Housing: House Marital status: Number of children: 2 Highest education level completed: Associate Degree: Occupational, Technical, Vocational Program service: Yes Pets and animals: Yes Sexually active: Yes Do you think of yourself as: Straight/Heterosexual Gricel/Orthodoxy: Yazidism Special gricel needs: No Agree to transfusion: No Vitals/I&O/Wt Last Vital Signs Temp 98.1 F 12/30/24 09:49 Pulse 52 L 12/30/24 13:00 Resp 18 12/30/24 09:49 BP 114/64 12/30/24 13:00 Pulse Ox 97 12/30/24 13:00 O2 Del Method Room Air 12/30/24 13:00 Weight last 48 hrs Weight 104.326 kg Physical Exam Const: COMMON NORMALS: patient oriented x3 and alert GENERAL APPEARANCE: cooperative ORIENTATION/CONSCIOUSNESS: Yes awake HENMT: COMMON NORMALS: oropharynx normal Neck/C-Spine: COMMON NORMALS: no JVD Resp: COMMON NORMALS: normal respiratory effort and clear to auscultation bilaterally AUSCULTATION: clear to auscultation bilaterally Cardio: COMMON NORMALS: no JVD, regular rhythm, S1 normal heart sound present, S2 normal heart sound present and No murmurs present (Cardio) RHYTHM: regular rhythm HEART SOUNDS: S1 normal heart sound present and S2 normal heart sound present GI: COMMON NORMALS: Normal to inspection, nondistended, normoactive bowel sounds present, Soft to palpation and non-tender PALPATION: Yes Soft to palpation Extremity: COMMON NORMALS: no joint enlargement and no pedal edema Neuro: COMMON NORMALS: patient oriented x3 and moves all extremities SENSORIUM/ORIENTATION: Yes alert Skin: COMMON NORMALS: no rashes or lesions noted GENERAL SKIN EXAM: no rashes or lesions noted Data 12/30/24 09:51 12/30/24 09:51 A&P Assessment and plan 1. Syncope: Recurrent near-syncope with orthostatic hypotension : Episodes of generalized weakness and near-syncope; orthostatics low-normal; possible contribution from volume depletion or medication effects (spironolactone diuresis, prazosin, isosorbide). Differential includes autonomic dysfunction, arrhythmic pauses, or medication-induced hypotension. No evidence of acute bleed, electrolyte abnormality, or pulmonary embolism. Reviewed vitals, CBC, CMP, chest x-ray, CTA, EKG on my interpretation with RBBB, T wave inversion in 3 and aVF, nonspecific, interpretation, pending official read, reviewed ED provider note, discussed with ED provider. - Monitor blood pressure and telemetry while inpatient. - Repeat orthostatic vitals tomorrow. - Hold spironolactone temporarily to assess for improvement (may be causing dehydration). - Advised patient to sit or lie flat immediately when symptoms occur to avoid injury. - Garvey TTE, carotid duplex - Cardioac monitor at DC as per discussion w her. Plan: Prinzmetal angina with intermittent chest pain : History of coronary spasm diagnosed on prior angiogram; yesterday experienced brief typical chest pain; today asymptomatic. Lab work negative and EKG without evolving ischemia. - Obtain repeat 12-lead EKG for comparison today. - Pull prior cardiac imaging for review. - Plan stress test tomorrow if symptoms recur or for further risk stratification. - Continue isosorbide mononitrate. Cardiac conduction abnormality (right bundle branch block, bradycardia) : Baseline right bundle branch block with relatively slow heart rate; concern for intermittent pauses contributing to presyncope. - Continue continuous telemetry during hospitalization. - Order limited transthoracic echocardiogram to reassess cardiac function. - Arrange outpatient heart monitor at discharge to capture possible pauses or arrhythmias. Follow-up : Need ongoing evaluation of hypotensive episodes and medication adjustments. - Schedule outpatient follow-up with primary care after discharge. - Re-evaluate necessity of prazosin if presyncope persists despite other changes. DM: in remission after weight loss. Reports not on any medications. Takes prazosin for night terrors after PTSD PDMP PDMP Reviewed: Not Reviewed Attestations Medical Necessity Statement*: Place in observation for additional assessment management of recurrent presyncopal/syncopal episodes LAD with history of Prinzmetal angina, underlying cardiac risk factors and additional comorbidities as above. and High MDM includes amount and/or complexity of data reviewed/ordered [ previous or external records, resulted lab(s)/test(s), ordered lab(s)/test(s), independent test interpretation and other healthcare professional discussion] as documented Diagnoses Syncope R55
--- NOTE | 2024-12-30 14:47 | USCV_ITS ---
Randi Kay Age: 64 Gender: F : 1960 Exam Date: 12/30/2024 15:14 Ordering Phys: Koko Rush MD Technologist: Exam Location: [facility] [place] Indication: tia vs cva Risk Factors: Previous Vascular Surgery: Right Brachial BP: / Left Brachial BP: / Right Left Velocity (cm/s) Spectral Plaque Velocity (cm/s) Spectral Plaque Syst/Diast Broadening Syst/Diast Broadening 88.20/ 22.00 Prox CCA 49.70 / 10.10 78.90/ 25.80 Mid CCA 57.00 / 11.60 72.40/ 24.50 Distal CCA 36.50 / 7.20 47.40/ 15.30 Prox ICA 41.90 / 8.60 58.70/ 19.00 Mid ICA 52.50 / 18.40 58.40/ 20.90 Distal ICA 63.90 / 24.10 62.10 ECA 46.70 0.80 ICA/CCA 1.80 Antegrade Vertebral Antegrade 23.00/ 8.00 cm/s 20.10/ 7.00 cm/s Bi Subclavian Tri 103.5 68.60 0 FINDINGS Comparison: none available. No significant elevation of systolic or diastolic velocities. Waveforms are normal. Mild carotid plaque. CONCLUSIONS Bilateral ICA stenosis less than 50%. Dr. Laly Mckeon DO (Electronically Signed) Final Date: 30 December 2024 15:46 S
--- NOTE | 2024-12-30 14:48 | USCV_ITS ---
Randi Kay Age: 64 Gender: F : 1960 Exam Date: 12/30/2024 15:05 Ordering Phys: Koko Rush MD Technologist: [place] [facility] [place]ication: cva tia BP: 107 / 66 HR: Rhythm: Sinus Technical Quality: Adequate MEASUREMENTS (Male / Female) Normal Values 2D ECHO LV Diastolic Diameter PLAX 5.0 cm 4.2 - 5.9 / 3.9 - 5.3 cm IVS Diastolic Thickness 1.4 cm 0.6 - 1.0 / 0.6 - 0.9 cm IVS Systolic Thickness 2.0 cm LVPW Diastolic Thickness 1.4 cm 0.6 - 1.0 / 0.6 - 0.9 cm LVPW Systolic Thickness 1.9 cm LVOT Diameter 1.6 cm LV Ejection Fraction 2D Teich 60.5 % LV Ejection Fraction MOD 4C 53.1 % LV Ejection Fraction MOD 2C 61.9 % LV Ejection Fraction 2C AL 62.2 % LA Diameter 3.3 cm RA Systolic Volume 4C AL 43.4 ml RA Systolic Volume 4C MOD 41.1 ml Aorta at Sinotubular Diameter 3.1 cm M-MODE LA Ao Ratio MM 0.6 AV Cusp Separation MM 2.4 cm FINDINGS Left Ventricle Normal LV size ejection fraction of 55%. No gross wall motion abnormalities Right Ventricle Mildly increased right ventricular size. Mildly decreased right ventricular systolic function. Right Atrium Left Atrium Normal size Mitral Valve No gross abnormalities noted Aortic Valve No gross abnormalities noted Tricuspid Valve No gross abnormalities noted Pulmonic Valve Pulmonic valve not well visualized. Pericardium No pericardial effusion. Aorta Normal aortic annulus size. IVC Normal inferior vena cava. CONCLUSIONS Normal LV size ejection fraction of 55%. No gross wall motion abnormalities. Mildly increased right ventricular size. Mildly decreased right ventricular systolic function. No gross morphologic valvular abnormalities There is no pericardial effusion. There are no intracardiac masses. Dr Gayathri Buchanan MD FACC (Electronically Signed) Final Date: 30 December 2024 17:22 S
[2024-12-30 16:13] LABS: Troponin 5 6HR 13.53 ng/L (0-10); Troponin 5 6HR Delta -2.47 ng/L (0-12)
--- NOTE | 2024-12-30 16:30 | ECG_ITS ---
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
[2024-12-30 16:56] LABS: Glucose Urine UA Negative (Normal); Nitrate Urine Positive (Negative)
[2024-12-30 17:01] LABS: Add Urine Microscopic? YES
[2024-12-30 17:08] LABS: Specific Gravity, Urine 1.032 (1.005-1.030)
--- NOTE | 2024-12-30 17:24 | PC.NURSE ---
received from er in to room 111-1 from er at 1550.pt is alert and oriented x 4.sb on monitor.denies pain at present.oriented to room environment.instructed to notify staff for any dizziness,pain,sob,or for any concerns at all.pt verb understanding of instructions.
[2024-12-31] VITALS (8 sets, daily range): BP systolic 103–128; BP diastolic 50–88; PULSE 50–112; RESP 19–22; TEMP 36.2–36.8; O2SAT 95–97
--- NOTE | 2024-12-31 | ECG_ITS ---
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 The perfusion scan will be documented separately. DATA: Baseline heart rate was 65 beats per minute. Baseline blood pressure was 108/74 millimeters of mercury. Target heart rate was 158. Maximum heart rate achieved was 112. which was 70 % of the predicted target heart rate. Maximum blood pressure was 131/85 millimeters of mercury. The reason for ending the test was completion of the protocol. The patient did not experience any symptoms. ELECTROCARDIOGRAM: BASELINE: Sinus rhythm. Right axis. Right bundle branch block, otherwise, no ST-T changes suggestive of ischemia noted. No arrhythmia noted. EXERCISE: After Lexiscan injection, no ST-T changes suggestive of ischemic noted. No arrhythmia noted. CONCLUSION: Please note due to baseline abnormality of the EKG specificity and sensitivity of the EKG portion of LexiScan MIBI stress test will be low 1. EKG not suggestive of ischemia 2. Lexiscan injection unremarkable. 3. Perfusion scan will be documented separately. Electronically Signed On 12-31-2024 21:55:22 CDT by ARIANA DUNCAN [id number] [id number]
[2024-12-31] MEDS: meropenem 1,000 mg SDV 1000 MG IVP ×2 (10:25→17:16)
--- NOTE | 2024-12-31 13:31 | ECG_ITS ---
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 Measurements Intervals [place] Rate: 95 P: 7 ID: [id number] QRS: -69 QRSD: 149 T: 8 QT: 383 QTc: 483 Interpretive Statements SINUS RHYTHM RIGHT BUNDLE BRANCH BLOCK [120+ ms QRS DURATION, UPRIGHT V1, 40+ ms S IN I/aVL/V4/V5/V6] LEFT ANTERIOR FASCICULAR BLOCK [QRS AXIS <= -45, QR IN I, RS IN II] POSSIBLE ANTERIOR MYOCARDIAL INFARCTION , PROBABLY OLD [30 ms Q WAVE IN V3/V4, OR R < 0.2 mV IN V4] Compared to ECG 12/30/2024 16:44:56 Left anterior fascicular block now present Myocardial infarct finding now present Sinus bradycardia no longer present Left-axis deviation no longer present Electronically Signed On 12-31-2024 22:59:51 CDT by Gayathri Buchanan M.D. [id number]
[2024-12-31 14:22] LABS: Troponin(5th) Baseline 11 ng/L (0-10)
[2024-12-31] MEDS: morphine 4 mg/mL SDV 1 mL 2 MG IVP ×2 (14:29→19:06)
[2024-12-31] MEDS: nitroglycerin drip 50 MG/250 ML PREMIX IV (14:31)
--- NOTE | 2024-12-31 15:11 | ECG_ITS ---
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 Measurements Intervals [place] Rate: 63 P: 18 NC: 159 QRS: -52 QRSD: 145 T: 0 QT: 400 QTc: 411 Interpretive Statements SINUS RHYTHM RIGHT BUNDLE BRANCH BLOCK [120+ ms QRS DURATION, UPRIGHT V1, 40+ ms S IN I/aVL/V4/V5/V6] LEFT ANTERIOR FASCICULAR BLOCK [QRS AXIS <= -45, QR IN I, RS IN II] POSSIBLE ANTERIOR MYOCARDIAL INFARCTION , OF INDETERMINATE AGE [30 ms Q WAVE IN V3/V4, OR R < 0.2 mV IN V4] Compared to ECG 12/31/2024 13:31:08 No significant changes Electronically Signed On 12-31-2024 23:08:48 CDT by Gayathri Buchanan M.D. [id number] [id number]
--- NOTE | 2024-12-31 15:40 | NMCV_ITS ---
NM milan perf SPECT r/s* [id number] Randi Kay Age: 64 Gender: F : 1960 Exam Date: 12/31/2024 08:24 Ordering Phys: Koko Rush MD Technologist: JARRET Jara Exam Location: [facility] Indications: cp STRESS TEST [facility] IMAGE PROTOCOL Rest/Stress 1 Lexiscan Day Radiopharmaceutical Dose (mCi) Administration Site Administered by Rest: Tc-99m 10.7 IV Pamela Arango, SOCIAL CONTACT WORKER Sestamibi Stress:Tc-99m 32.5 IV Pamela Nba, SOCIAL CONTACT WORKER Sestamibi Rest: 12/31/2024 60 Discovery 630 Stress: 12/31/2024 30 Discovery 630 0.4mg Lexiscan. Images obtained in supine and prone position. SPECT RESULTS Technical Quality: Good Raw Data Analysis: Normal Image Corrections: No attenuation or motion correction applied Summed Stress Score: 3 Summed Rest Score: 3 Summed Difference Score: 3 PERFUSION FINDINGS There is a small area of partially reversible perfusion defect seen in the inferolateral wall. This improves on prone imaging. Attenuation artifact cannot be ruled out. Clinical correlation is recommended. FUNCTIONAL RESULTS (calculated via Gated SPECT) Stress Image LV EF (%): 68 Stress EDV (mL):114 TID: 0.89 Stress ESV (mL):36 FUNCTIONAL FINDINGS: There is normal left ventricular systolic function. IMPRESSIONS 1. Small area of partially reversible perfusion defect seen in inferolateral wall. This improves on prone imaging. Attenuation artifact cannot be ruled out. Less likely small area of prior infarct with small area of per-infarct ischemia in left circumflex artery territory. Clinical correlation is recommended. 2. LV systolic function is normal Luis A Adair MD (Electronically Signed) Final Date: 31 December 2024 14:04 S
--- NOTE | 2024-12-31 15:44 | PC.NURSE ---
patient reported sudden chest pressure which felt like an elephant sitting on her chest. Vitals taken and Dr Rush called. Dr Rush recommended nitro 0.4 sublingual. patient took a total of 3 doses without relief. EKG also done at this time and shown to Dr Rush. Morphine 2mg IVP ordered as well as oxygen and aspirin. Nitro drip currently running at 20.
[2024-12-31 16:47] LABS: Troponin 5 2HR 12.93 ng/L (0-10); Troponin 5 2HR Delta 1.93 ABS# (0-10)
--- NOTE | 2024-12-31 16:48 | PM.CONSULT ---
Providers/Reason For Consult Consulting Physician/Specialty*: Dr. Brandon Reason for Consult*: Chest pain Requesting Physician: Dr. Rush Attending Physician: Kkoo Rush Primary Care Provider: DELMA Lua History of Present Illness History of Present Illness Randi Kay is a very pleasant 64 year old female with a history of Prinzmetal angina. She had a coronary angiogram in 2021 that showed no significant coronary artery disease. She has a history of type 2 diabetes, status post gastric bypass, hypertension, hyperlipidemia, diabetic nephropathy, bilateral PE in June of this year new onset chronically anticoagulated on Eliquis. She did get 1 dose of Eliquis this morning. She states that she has had syncopal episodes in the past that she starts to feel dizzy and can feel them coming on and then passes out. She states that this been going on for about a month. She states that this can be when she is walking or sitting and no identifiable triggers have been noticed. Previous CT of the head revealed no acute intracranial abnormalities. She was discharged from the ER. She came back in originally to our emergency department yesterday for feeling weak and fainting. She was able to get in a chair and did not hit her head or lose consciousness. At the time she denied any chest pain or pressure. She stated that in the past she had had occasional chest pressure to the left side of her breast that radiated to the jaw. She states when she has these episodes the last 45 minutes. She states that similar episodes have occurred for about 5 to 6 years. She states that during her hospital stay today after her stress test, she developed chest pressure at the center of her chest that radiated to the jaw and left arm. She states that she took 3 nitro, without improvement. She was placed on a nitro drip. She states at this time the same chest pressure is gone but still has a nagging pain to the left breast. BP is stable. Vitals are stable. On the monitor, she has had heart rates into the 40s. Current HR is 67 and she is asymptomatic. Her troponin was stable at 16?15 0.76?13.53. EKG showed sinus rhythm with T wave inversion in 3 and aVF with right bundle branch block. This is unchanged from previous EKGs in the past. Limited echo showed EF 55% with no gross wall motion abnormalities. Carotid Doppler showed bilateral ICA less than 50% stenosed. Chest CTA showed no pulmonary embolism no pneumonia with moderate left ventricular enlargement. No pneumothorax. Stress test showed small area of partially reversible perfusion defect in the inferior lateral wall which improves on prone imaging. Artifact cannot be ruled out less likely small area of prior infarct with small area of josue-infarct ischemia. LV function was normal. Repeat troponins after chest pain was 11-12.93 awating 6 hour troponin. She did get Eliquis this morning at 10:26. Review of Systems Narrative: Consitutional: denies fever, chills, body aches, or changes in appetite, denies abnormal weight loss Eyes: Denies changes in vision Card: Denies chest pain, palpitations, irregular heart rhythm, edema, syncope, shortness of breath, orthopnea, leg pain with exertion Resp: Denies shortness of breath, denies hemoptysis, denies cough GI: denies abdominal pain, denies nausea or voimting, denies blood in stool : denies blood in urine, denies dysuria Musc: Reports nagging pain under left breast Skin: Denies rash, lesions, or wounds, denies changes to skin color Neuro: Denies nubmness in extremities, h/a, s/s of stroke Caleb: Denies easy bruiding/bleeding Medications/Allergies Home Medications ?Medication ?Instructions ?Recorded ?Confirmed ?Last Taken ?Type prazosin 2 mg capsule 8 mg PO BEDTIME 10/18/21 12/30/24 12/29/24 History pregabalin 300 mg capsule (Lyrica) 300 mg PO BID 06/17/22 12/30/24 12/30/24 History albuterol sulfate 90 mcg/actuation 2 puff inhalation Q6H PRN 01/04/23 12/30/24 Unknown Rx aerosol inhaler (Ventolin HFA) shortness of breath or wheezing #8.5 grams cyproheptadine 4 mg tablet 4 mg PO BEDTIME 08/11/23 12/30/24 12/29/24 History apixaban 5 mg tablet (Eliquis) 5 mg PO BID 07/18/24 12/30/24 12/30/24 History omeprazole 20 mg capsule,delayed 20 mg PO BID 07/18/24 12/30/24 12/30/24 History release isosorbide dinitrate 30 mg tablet 30 mg PO BID 07/26/24 12/30/24 12/30/24 History oxybutynin chloride 5 mg tablet 10 mg PO DAILY 08/21/24 12/30/24 12/30/24 History methocarbamol 750 mg tablet 750 mg PO TID PRN Spasms 10/01/24 12/30/24 Unknown History prochlorperazine maleate 10 mg 10 mg PO DAILY PRN Nausea 10/01/24 12/30/24 Unknown History tablet spironolactone 25 mg tablet 25 mg PO BID #60 tabs 10/18/24 12/30/24 12/30/24 Rx meclizine 25 mg tablet 25 mg PO QID PRN dizziness #30 tabs 10/24/24 12/30/24 Unknown Rx hydrocodone 5 mg-acetaminophen 325 1 tab PO Q6H PRN pain #20 tabs 12/19/24 12/30/24 Unknown Rx mg tablet polyethylene glycol 3350 17 17 g PO DAILY PRN constipation 12/30/24 12/30/24 Unknown History gram/dose oral powder (Miralax) Allergies Allergy/AdvReac Type Severity Reaction Status Date / Time ondansetron (From Zofran) Allergy Severe Dystonia Verified 12/19/24 18:51 bee venom protein (honey bee) Allergy anaphylaxis Verified 12/19/24 18:51 Influenza Virus Vaccines Allergy anaphylacti Verified 12/19/24 18:51 c mushroom Allergy anaphylaxis Verified 12/19/24 18:51 tetracycline Allergy Rash, Verified 12/19/24 18:51 shortness of breath trazodone Allergy Rash, Verified 12/19/24 18:51 trouble breathing vaccines Allergy ALGY-Anaphy Uncoded 12/19/24 18:51 laxis Current Medications Generic Name Dose Route Start Last Admin Trade Name Freq PRN Reason Stop Dose Admin Apixaban 5 mg 12/30/24 18:00 12/31/24 10:26 Apixaban 5 Mg Tablet PO 5 mg On Hold: 12/31/24 16:34 BID MAI Administration Aspirin 325 mg 12/31/24 14:15 12/31/24 14:30 Aspirin 325 Mg Tablet PO 325 mg DAILY MAI Administration Cyproheptadine HCl 4 mg 12/30/24 21:00 12/30/24 20:42 Cyproheptadine 4 Mg Tablet PO 4 mg BEDTIME MAI Administration Nitroglycerin/Dextrose 50 mg in 250 mls @ 0 mls/hr 12/31/24 14:00 12/31/24 15:43 Nitroglycerin Drip IV 20 mcg/min .Q0M MAI 6 mls/hr Protocol Titration Per Protocol Isosorbide Dinitrate 30 mg 12/30/24 18:00 12/31/24 10:26 Isosorbide Dinitrate 20 Mg Tablet PO 30 mg BID MAI Administration Meclizine HCl 25 mg 12/30/24 15:40 12/30/24 17:38 Meclizine 25 Mg Tablet PO 25 mg QID PRN Administration DIZZINESS Meropenem 1,000 mg 12/31/24 08:30 12/31/24 10:25 Meropenem 1,000 Mg Sdv IVP 1,000 mg Q8H MAI Administration Protocol Nitroglycerin 0.4 mg 12/31/24 06:53 12/31/24 13:17 Nitroglycerin 0.4 Mg Sublingual Tablet SUBLINGUAL 01/01/25 06:52 0.4 mg Q5M PRN Administration CHEST PAIN Oxybutynin Chloride 10 mg 12/31/24 09:00 12/31/24 10:25 Oxybutynin 5 Mg Tablet PO 10 mg DAILY MAI Administration Pantoprazole Sodium 40 mg 12/30/24 18:00 12/31/24 10:[address] 40 Mg Tablet PO 40 mg BID MAI Administration Prazosin HCl 5 mg 12/30/24 21:00 12/30/24 20:42 Prazosin 5 Mg Capsule PO 5 mg BEDTIME MAI Administration Pregabalin 300 mg 12/30/24 18:00 12/31/24 10:25 Pregabalin 150 Mg Capsule PO 300 mg BID MAI Administration PFSH Acute PFSH: Medical History (Updated 12/31/24 @ 17:04 by Kesha Mcpherson NP) Tear of medial meniscus of left knee, current Renal failure Left knee pain No pertinent past medical history NegHx: thyroid, dvt/pe PCP: Tania Gastroparesis Prinzmetal angina Metatarsalgia of both feet Post traumatic stress disorder (PTSD) Hyperlipidemia Coronary 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 Takes Lyrica for the neuropathy. Does take hydrocodone as needed for pain. GERD (gastroesophageal reflux disease) Controlled on medication Anxiety and depression Diagnosed in the and controlled well on medication at this time managed by primary care provider nurse jami Taveras. Primary hypertension Diagnosed in 2018 managed by primary care provider nurse practitioner Nitin Surgical History H/O esophagogastroduodenoscopy (09/01/21) History of coronary angiogram 06/2021 and 05/2022 History of surgery neck lipoma removal- S/P appendectomy 1980-right lower quadrant incision, right ovary and appendix were removed. Hx of breast surgery ductectomy from the left breast done in her late 30s S/P tubal ligation 1982-immediately . History of back surgery Pain pump insertion, removed in 2014 S/P left knee arthroscopy Hx of oophorectomy 1980---right lower quadrant incision-right ovary and appendix were removed when she presented with pain to the emergency room S/P hysterectomy 1985--vaginal hysterectomy with left oophorectomy performed for a uterine mass she was told that there was no cancer but there were some abnormal cells and it was recommended that she have chemotherapy for 6 weeks however she did only 2 weeks and then did not finish the rest of treatment. S/P tonsillectomy and adenoidectomy As a child S/P cholecystectomy Laparoscopic procedure performed in 1992 Family History Mother Heart disease Hypertension Ovarian cancer Diagnosed at age 34 Suicide Thyroid disease Uterine cancer Diagnosed at age 34, unsure of origin Father Heart disease Thyroid disease Sister Thyroid disease Family/Other Thyroid disease [place], granddaughter Other Diabetes Social History Smoking and tobacco/nicotine status: former use of tobacco/nicotine Quit status (tobacco/nicotine): has quit using Second hand smoke exposure: No Alcohol intake: former Substance/Drug Use: never Adopted: No Caregiver/support person: No Lives independently: Yes Housing: House Marital status: Number of children: 2 Highest education level completed: Associate Degree: Occupational, Technical, Vocational Program service: Yes Pets and animals: Yes Sexually active: Yes Do you think of yourself as: Straight/Heterosexual Gricel/Mormon: Congregational Special gricel needs: No Agree to transfusion: No Vitals/I&O/Wt Last Vital Signs Temp 98.1 F 12/30/24 09:49 Pulse 67 12/31/24 14:27 Resp 22 H 12/31/24 14:29 BP 108/62 12/31/24 14:27 Pulse Ox 97 12/31/24 14:29 O2 Del Method Nasal Cannula 12/31/24 14:27 O2 Flow Rate 2 12/31/24 14:27 12/31/24 12/31/24 12/31/24 06:59 14:59 22:59 Intake Total 480.475 / 480.475 3.35 / 483.825 Balance 480.475 / 480.475 3.35 / 483.825 Weight last 48 hrs Weight 240 lb Weight 234 lb 4 oz Weight 230 lb Physical Exam Narrative: General: No apparent distress HENMT: normoceophalic Neck: No carotid bruit bilaterally Muskuloskeletal: Full ROM Respiratory: Normal respiratory effort, clear to auscultation bilaterally throughout all lung mccollum, no use of accessory muscles Cardio: No JVD, regular rate, regular rhythm, S1 S2 normal, no murmurs, peripheral pulses 2+ radial palpated bilaterally Extremities: Full ROM, normal, normal capillary refill, no cyanosis or edema Neuro: Alert and oriented x4, no focal motor deficits Psych: Affect normal, mental status grossly normal Skin: No rashes or lesions noted, no wounds Data 12/30/24 09:51 12/30/24 09:51 A&P Assessment and plan 1. Primary hypertension: 2. Mixed hyperlipidemia: 3. Prinzmetal angina: 4. Ex-smoker: 5. Chest pain, unspecified type: Plan: Patient has hx of syncopal episodes. Has had bradycardia in the past. Will continue to monitor and avoid beta blockers at this time. Currently asymptomatic. Chest pain is typical although previous C in 2021 showed normal coronary arteries. Stress test was negative for ischemia with mainly artifact due to improvement seen on prone imaging. Possible causes could be Prinzmetal angina or progressive underlying coronary artery disease as patient has risk factors and typical symptoms. Troponins slightly abnormal. EKG with no acute changes. Echo with normal EF and no wall motion abnormalities. Patient currently without chest pressure on nitro drip. BP is stable. Will need to monitor for hypotension. At this time, we recommend transition from Eliquis to Heparin drip with 12 hours between. NPO after midnight. Will discuss further plan with Dr. Brandon for further recommendations to be made. Thank you, Dr. Rush, for allowing us to care for this very pleasant 64 year old female patient. PDMP PDMP Reviewed: Not Reviewed Coding Level of Care Code Acute Code for Chg Fwd Diagnoses Primary hypertension I10 Hypertension type: primary hypertension Mixed hyperlipidemia E78.2 Hyperlipidemia type: mixed hyperlipidemia Prinzmetal angina I20.1 Ex-smoker Z87.891 Chest pain, unspecified type R07.9 Chest pain type: unspecified
--- NOTE | 2024-12-31 17:45 | P.PN_ITS ---
Subjective 2 Subjective: This morning she is in stress test. Subsequently states had some mild discomfort during her stress test, but doing well afterwards. However, in the afternoon developing severe nonresolving chest pain, not resolving with oral nitroglycerin, with only partial relief, and additional partial relief from morphine. Unaffected by breathing. Pain/pressure centrally to the left side rating to the left jaw. Vitals/I&O/Wt Last Vital Signs Temp 97.1 F L 12/31/24 16:00 Pulse 82 12/31/24 16:00 Resp 20 H 12/31/24 16:00 BP 119/88 12/31/24 16:00 Pulse Ox 95 12/31/24 16:00 O2 Del Method Nasal Cannula 12/31/24 16:00 O2 Flow Rate 2 12/31/24 16:00 12/31/24 12/31/24 12/31/24 06:59 14:59 22:59 Intake Total 480.475 / 480.475 3.35 / 483.825 Balance 480.475 / 480.475 3.35 / 483.825 Weight last 48 hrs Weight 108.862 kg Weight 106.254 kg Weight 104.326 kg Physical Exam 2 Narrative: Accompanied by family visitor. Const: COMMON NORMALS: patient oriented x3 and alert GENERAL APPEARANCE: c ooperative ORIENTATION/CONSCIOUSNESS: Yes awake HENMT: COMMON NORMALS: oropharynx normal Neck/C-Spine: COMMON NORMALS: no JVD Resp: COMMON NORMALS: normal respiratory effort and clear to auscultation bilaterally AUSCULTATION: clear to auscultation bilaterally Cardio: COMMON NORMALS: no JVD, regular rhythm, S1 normal heart sound present, S2 normal heart sound present and No murmurs present (Cardio) RHYTHM: regular rhythm HEART SOUNDS: S1 normal heart sound present and S2 normal heart sound present GI: COMMON NORMALS: Normal to inspection, nondistended, normoactive bowel sounds present, Soft to palpation and non-tender PALPATION: Yes Soft to palpation Extremity: COMMON NORMALS: no joint enlargement and no pedal edema Neuro: COMMON NORMALS: patient oriented x3 and moves all extremities S ENSORIUM/ORIENTATION: Yes alert Skin: COMMON NORMALS: no rashes or lesions noted GENERAL SKIN EXAM: no rashes or lesions noted Data 12/30/24 09:51 12/30/24 09:51 A&P Assessment and plan 1. Syncope: Reviewed vitals, troponin series, reviewed echocardiogram, carotid Doppler. Discussed with her. Reviewed stress test. Today with occurrence of nonresolving chest pain this afternoon with minor response to nitro and partial response to morphine. Started on nitroglycerin drip, given additional IV morphine. Given aspirin 325 mg. Anticoagulated on Eliquis from home. Discussed with cardiology, appreciate consultation regarding possible unstable angina. Anticoagulation is being transitioned to heparin drip. Monitor on telemetry with risk of arrhythmia. Recurrent near-syncope with orthostatic hypotension : Episodes of generalized weakness and near-syncope; orthostatics low-normal; possible contribution from volume depletion or medication effects (spironolactone diuresis, prazosin, isosorbide). Differential includes autonomic dysfunction, arrhythmic pauses, or medication-induced hypotension. No evidence of acute bleed, electrolyte abnormality, or pulmonary embolism. Plan: Prinzmetal angina with intermittent chest pain : Additional assessment of possible unstable angina as above. History of coronary spasm diagnosed on prior angiogram; yesterday experienced brief typical chest pain; today asymptomatic. Lab work negative and EKG without evolving ischemia. - Obtain repeat 12-lead EKG for comparison today. - Pull prior cardiac imaging for review. - Plan stress test tomorrow if symptoms recur or for further risk stratification. - Continue isosorbide mononitrate. Cardiac conduction abnormality (right bundle branch block, bradycardia) : Baseline right bundle branch block with relatively slow heart rate; concern for intermittent pauses contributing to presyncope. - Continue continuous telemetry during hospitalization. - Reviewed limited transthoracic echocardiogram to reassess cardiac function. - Arrange outpatient heart monitor at discharge to capture possible pauses or arrhythmias. Follow-up : Need ongoing evaluation of hypotensive episodes and medication adjustments. Continue to hold spironolactone. Reviewed orthostatics. - Schedule outpatient follow-up with primary care after discharge. - Re-evaluate necessity of prazosin if presyncope persists despite other changes. DM: in remission after weight loss. Reports not on any medications. Takes prazosin for night terrors after PTSD PDMP PDMP Reviewed: Not Reviewed Attestations 2 Medical Necessity Statement*: Admission of over 2 midnights is needed for assessment management of unstable angina recent syncopal episodes. and High MDM includes amount and/or complexity of data reviewed/ordered [ resulted lab(s)/test(s), ordered lab(s)/test(s) and other healthcare professional discussion] and described risk of complication, morbidity or mortality of management as documented Diagnoses Syncope R55
--- NOTE | 2024-12-31 19:11 | ECG_ITS ---
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 Measurements Intervals [place] Rate: 70 P: 31 HI: 163 QRS: -52 QRSD: 153 T: 8 QT: 411 QTc: 444 Interpretive Statements SINUS RHYTHM RIGHT BUNDLE BRANCH BLOCK [120+ ms QRS DURATION, UPRIGHT V1, 40+ ms S IN I/aVL/V4/V5/V6] LEFT ANTERIOR FASCICULAR BLOCK [QRS AXIS <= -45, QR IN I, RS IN II] POSSIBLE ANTERIOR MYOCARDIAL INFARCTION , OF INDETERMINATE AGE [30 ms Q WAVE IN V3/V4, OR R < 0.2 mV IN V4] Compared to ECG 12/31/2024 15:28:21 No significant changes Electronically Signed On 12-31-2024 23:05:35 CDT by Gayathri Buchanan M.D. [email or web address]
[2024-12-31 20:11] LABS: Troponin 5 6HR 12.47 ng/L (0-10); Troponin 5 6HR Delta 1.47 ng/L (0-12)
[2024-12-31] MEDS: heparin drip 25,000 UNIT/500 ML PREMIX 31 UNIT IV (22:42)
[2025-01-01] VITALS (13 sets, daily range): BP systolic 96–121; BP diastolic 53–74; PULSE 52–88; RESP 14–24; TEMP 36.1–37.1; O2SAT 92–98
[2025-01-01 00:06] LABS: Partial Thromboplastin Time 33.0 SECONDS (23.9-36.7)
[2025-01-01] MEDS: meropenem 1,000 mg SDV 1000 MG IVP ×3 (00:56→17:27)
[2025-01-01 04:14] LABS: Hematocrit 37.4 % (36-47); Hemoglobin 12.40 g/dL (11.27-16.99); Mean Corpuscular HGB Conc 33.2 g/dL (30-55); Mean Corpuscular Hemoglobin 30.5 pg (27-33); Mean Corpuscular Volume 92.1 fl (85-98); Nucleated Red Blood Cells % 0 %; Platelet Count 149 10^3/cmm (157-399); Red Blood Count 4.06 10^6/uL (3.85-5.65); White Blood Count 8.92 10^3/uL (3.29-11.43)
[2025-01-01 04:40] LABS: Partial Thromboplastin Time 132.6 SECONDS (23.9-36.7)
[2025-01-01 04:44] LABS: Alanine Aminotransferase 25 U/L (0-33); Albumin Level 2.9 g/dL (3.5-5.2); Alkaline Phosphatase 130 U/L (35-105); Anion Gap 12.5 (5-19); Aspartate Amino Transferase 30 U/L (0-32); Blood Urea Nitrogen 13 mg/dL (8-23); Calcium 8.6 mg/dL (8.5-10.5); Carbon Dioxide 23 mmol/L (22-29); Chloride 113 mmol/L (98-107); Creatinine Clr Calc Pharmacy 105.9021; Globulin 2.5 g/dL (1.3-4.6); Glucose 96 mg/dL (65-115); Osmolality Calculated 300 mOsm/kg (285-295); Potassium 3.5 mmol/L (3.5-5.1); Sodium 145 mmol/L (136-145); Total Protein 5.4 g/dL (6.6-8.7)
--- NOTE | 2025-01-01 06:31 | XACV_ITS ---
Exam Room: [facility] Ht: 170 cm Wt: 111 kg BSA: 2.34 m2 Gender: Female : 1960 Any Known Allergies: Other Exam Priority: Routine Procedure(s): Procedure Description: Diagnostic procedure Procedure Description: Left Heart Catheterization Procedure Description: Left ventriculography Procedure Description: Coronary Angiography OBEDRoma CONNELLY; Diagnostic Cath Status: Elective Diagnostic Findings * No disease noted in the Left Main, Left Anterior Descending, Right, or Circumflex coronary arteries. * Coronary angiography shows right dominance. Conclusions 1. No disease noted in the Left Main, Left Anterior Descending, Right, or Circumflex coronary arteries. 2. All irvin are normal. 3. Normal left ventricular systolic function. Ejection fraction of 65%. Recommendations * Continue current medical management and risk factor modification. Diagnostic RX Recommendation: medical therapy and/or counseling Ventriculography Ejection Fraction: 65.0 % Pressures Phase:Rest AO : 106 / 61 ( 81 ) @ 12:20:00 PM 126 / 66 ( 92 ) @ 12:28:00 PM 128 / 67 ( 93 ) @ 12:28:00 PM LV : 129 / -14 / 2 @ 12:27:00 PM 128 / 12 / 19 @ 12:28:00 PM 127 / -10 / 6 @ 12:28:00 PM Valves Phase:DefaultPhase AV : 1.0 @ 11:38:43 AM AV Mean Gradient: 0.0 @ 11:38:43 AM Clinical Evaluation EBL: 5mL-10mL Procedural Details Procedure Consent Obtained. Admit Source: In Patient. Pre-Procedure Time Out. Identified patient by full name and date of as verbalized by the patient/guarantor. Does the consent match the physician's order: Yes. Accurate & Complete Informed Consent: Yes. Inpatient/Outpatient History & Physical on Chart: Yes. If H&P is completed, is and addenduem needed: No; If yes, is the addendum complete: N/A. Visualize and Verify Site with Patient/Guarantor: N/A. Relevant Radiology Images available: Yes. The risks, benefits, and alternatives of sedation and/or procedure were discussed by physician. The patient agrees to continue. Procedure started. [facility] Clinical Fraility Score: 3: Managing Well. [employer] D[employer] Developer Indications: Worsening Angina. Correct patient, site and procedure confirmed by cath team. Current diagnosis: Unstable angina. PERRLA. Strong, equal hand network pricing consultant bilaterally. Lungs clear x 5 lobes. Chest Pain Symptom Assessment: Atypical Angina. IV Site on Arrival: 20 gauge in the right anticubital. IV Fluids: 0.9% NaCl at 75ml/hr. 0 mL infused prior to laboratory geneticist. Pre Procedural Pulses: bilateral radial was 3+. Pre Procedural Pulses: bilateral dorsalis pedis was 2+. Oxygen started at 2liters/min via nasal canula. right radial was prepped with chloroprep then draped in the usual sterile fashion. right groin was prepped with chloroprep then draped in the usual sterile fashion. Physician notified. Baseline sample Acquired. HR: 63 BPM. Physician arrived. Physician scrubbed in. Immediate Pre-Procedure Time Out. Correct Patient: Yes; Correct Procedure: Yes; Correct Site: Yes; Correct Patient Position: Yes; Correct Supplies: Yes; Dried Flammable Prep: Yes; Blood Products Available: No;. Lidocaine 1% infiltrated to the right radial. Arterial access obtained. A 5 lao Luis catheter in over wire. Exchange wire out. Glidewire in though catheter. Wire out. Hand injection through catheter. Glidewire in though catheter. Wire out. Hand injection through catheter. Glidewire in though catheter. Wire out. A TR Band was successful obtaining hemostatsis at the Right Radial artery insertion site. Lidocaine 1% infiltrated to the right groin. Arterial access obtained with micropuncture set. A Right femoral angiogram was performed to determine safe placement of closure device. A 5 lao JL4 catheter in over wire. Multiple views taken of left coronary artery. Catheter removed over the standard wire. A 5 lao JR4 catheter in over wire. Multiple views taken of right coronary artery. Catheter removed over the standard wire. A 5 lao Angled Pig catheter in over wire. EDP Sample taken: LV 129/-15,2; HR: 84 BPM; SpO2: 95%. LV gram performed in [place] @ 10 mL/second for a total of 30 mL. EDP Sample taken: LV 128/12,19; HR: 86 BPM; SpO2: 95%. Pullback taken: LV 127/-11,6; AO 126/66(92); Mean: 0mmHg, Peak to Peak: 1mmHg, SEP: 21sec/min; HR: 82 BPM; SpO2: 95%. Catheter removed over the standard wire. ACT drawn. Results 156 seconds. Therapeutic limits - pre-heparin administration 90-150 seconds and monitoring heparin during a vascular procedure >250 seconds. Right groin cleansed with chloraprep. A Angio-Seal VIP ([facility]) was successful obtaining hemostatsis at the Right Femoral artery insertion site. EXP 08-28-2025 LOT # [id number]. Post Procedure: Pulses reassessed and unchanged. PERRLA. Strong, equal hand network pricing consultant bilaterally. No VTE prophylaxis required. Medication's Wasted: Nitro = 49.8 mg. Medication's Wasted: Heparin = 1000 units. Total IV fluids: 50 mL. Post-op diagnosis: Normal Coronaries. Complications: None. Estimated blood loss: 5mL-10mL. Responsiveness - Normal response to verbal stimuli; alert and oriented, PERRLA. Airway - Unaffected, no intervention required; spontaneous ventilation. Circulation: W/N/L, pulses unchanged. Nausea/Vomiting: No. Procedure completed. Patient transferred by bed to 1st floor. Vital chart was stopped. Access Site Site: Right Radial artery Sheath Size: 6 Fr Hemostasis Method: TR Band Hemostasis Success: Successful Site: Right Femoral artery Sheath Size: 6 Fr Hemostasis Method: Angio-Seal VIP ([facility]) Hemostasis Success: Successful Procedure Medications Start: 10:49 AM Stop: 10:49 AM Medication: Versed Amount: 1 mg Route: I.V. Start: 10:50 AM Stop: 10:50 AM Medication: Fentanyl Amount: 50 mcg Route: I.V. Start: 10:54 AM Stop: 10:54 AM Medication: Versed Amount: 1 mg Route: I.V. Start: 10:59 AM Stop: 10:59 AM Medication: Nitrogylcerin Amount: 200 mcg Route: I.A. Start: 11:10 AM Stop: 11:10 AM Medication: Versed Amount: 1 mg Route: I.V. Start: 11:15 AM Stop: 11:15 AM Medication: Versed Amount: 1 mg Route: I.V. Start: 11:15 AM Stop: 11:15 AM Medication: Fentanyl Amount: 25 mcg Route: I.V. Start: 11:30 AM Stop: 11:30 AM Medication: Fentanyl Amount: 25 mcg Route: I.V. I, the attending physician, have reviewed and verified all procedure medications. Yes, all medications given per verbal order History/Risk Factors Hypertension: Yes Dyslipidemia: Yes Peripheral Arterial Disease (PAD): No Myocardial Infarction (DE): Yes Obesity: Yes Renal Disease: No Tobacco Use: Former Prior Interventions PCI: No CABG: No Valve Surgery: No Report Signatures Finalized by Elis Brandon MD on 01/01/2025 11:47 AM
--- NOTE | 2025-01-01 10:47 | W.PM.OPSUD ---
Surgery/Procedure H&P Update DATE OF PROCEDURE: January 01, 2025 DATE H&P PERFORMED: 12/31/24 H&P UPDATE INFORMATION: I have reviewed H&P completed within last 30 days, I have examined patient prior to procedure and No changes to prior documentation CHANGES TO PREVIOUS DOCUMENTATION: Worsening of chest pain off and on basis relieved with nitro drip suggestive of unstable angina. Pain is of typical nature radiating to her neck jaw and both arms. Since patient continues to have chest pain relieved only with nitroglycerin we will proceed with left heart cath PREOP DIAGNOSIS: Unstable angina PATIENT REASSESSED PRIOR TO SEDATION, WITH NO CHANGE NOTED: Yes PHYSICAL EXAM: alert, oriented x 3, clear to auscultation bilaterally, regular rate & rhythm and operative site marked OTHER PERTINENT EXAM FINDINGS: Patient has been explained all risk-benefit and alternative for the procedure. Patient understand 2% risk of stroke major bleed. Patient is stent 5% risk of minor bleeding bruising infection hematoma contrast induced nephropathy. Patient received 5% risk of urgent emergent vascular bypass surgery. She clearly understood and would like to proceed with it
--- NOTE | 2025-01-01 10:48 | P.PN_ITS ---
Subjective 2 Subjective: Patient seen this morning prior to cath. No complaints. Currently on Nitro drip at 20. VSS. Labs stable. APTT was slightly elevated on last check. Will get angiogram around 10 this AM. Vitals/I&O/Wt Last Vital Signs Temp 97.8 F 01/01/25 08:00 Pulse 68 01/01/25 08:30 Resp 20 H 01/01/25 08:30 BP 102/53 01/01/25 08:30 Pulse Ox 98 01/01/25 08:00 O2 Del Method Room Air 01/01/25 08:00 O2 Flow Rate 2 12/31/24 19:53 12/31/24 01/01/25 01/01/25 22:59 06:59 14:59 Intake Total 1123.925 / 1604.400 255.617 / 1860.017 Balance 1123.925 / 1604.400 255.617 / 1860.017 Weight last 48 hrs Weight 245 lb 4.8 oz Weight 240 lb Weight 234 lb 4 oz Physical Exam 2 Narrative: General: No apparent distress HENMT: normoceophalic Muskuloskeletal: Full ROM Cardio: regular rate and rhythm on monitor Extremities: Full ROM Neuro: Alert and oriented x4, no focal motor deficits Psych: Affect normal, mental status grossly normal Data 01/01/25 04:09 01/01/25 04:09 Micro: Microbiology 12/30/24 16:00 Urine Culture - Preliminary Urine,Clean Catch Gram Negative Rods A&P Assessment and plan 1. Primary hypertension: 2. Mixed hyperlipidemia: 3. Prinzmetal angina: 4. Ex-smoker: 5. Chest pain, unspecified type: Plan: Plan for angiogram this AM. Further recommendations after that. She will need 30 day event monitor on discharge for syncope. PDMP PDMP Reviewed: Not Reviewed Attestations 2 Medical Necessity Statement*: Deferred to primary. Coding Level of Care Code Acute Code for [facility] Diagnoses Primary hypertension I10 Hypertension type: primary hypertension Mixed hyperlipidemia E78.2 Hyperlipidemia type: mixed hyperlipidemia Prinzmetal angina I20.1 Ex-smoker Z87.891 Chest pain, unspecified type R07.9 Chest pain type: unspecified
[2025-01-01 10:57] LABS: Partial Thromboplastin Time 94.1 SECONDS (23.9-36.7)
--- NOTE | 2025-01-01 13:34 | PM.DCS ---
Discharge Providers Date of Admission: 12/31/24 10:11 Date of Discharge: January 01, 2025 Attending Provider at Admission: Koko Rush Attending Provider at Discharge: Koko Rush Primary Care Provider: DELMA Lua Diagnoses at Discharge Discharge Diagnosis 1. Primary hypertension: 2. Mixed hyperlipidemia: 3. Prinzmetal angina: 4. Ex-smoker: 5. Chest pain, unspecified type: Reason for Visit Reason for Visit: dizzy, low bp, confusion Brief History: Randi Kay is a 64 year old woman with a history of Prinzmetal angina (coronary angiograms 2021 & 2022 without obstructive disease), type 2 diabetes mellitus (DM2) status post gastric bypass, hypertension, hyperlipidemia, diabetic nephropathy, gastroparesis, chronic back pain, anxiety, depression, and recent bilateral pulmonary emboli on apixaban. One week ago she sustained a fall with brief loss of consciousness; work-up then (EKG with right bundle branch block, CT head/spine, chest X-ray, knee imaging) revealed no acute intracranial or bony injury and she was discharged. She returns today after suddenly feeling very weak while walking; she sat in a chair before fainting and did not lose consciousness. Denies chest pain or shortness of breath during today?s episode. In the emergency department, orthostatic blood pressures were low-normal (lying 97/52 mmHg, sitting 100/61 mmHg, standing 98/57 mmHg). Basic labs, cardiac enzymes, and chest imaging were unremarkable except alkaline phosphatase 149 U/L; EKG showed left-axis deviation and right bundle branch block with T-wave inversions in III and aVF. She reports occasional chest pressure; yesterday experienced brief typical Prinzmetal chest pain. Home medications include spironolactone (started ~1 month ago for low magnesium/potassium), prazosin for PTSD-related nightmares, and isosorbide mononitrate. No vomiting, diarrhea, fever, chills, cough, dysuria, melena, or hematuria. Denies recent dehydration or heat exposure. Former smoker; denies alcohol and recreational drug use. Hospital Course Hospital Course Orthostatics were found positive and spironolactone was discontinued given it is the most recently initiated medication. She has other medications as discussed with her that put her at risk of orthostasis including prazosin, Imdur as well, however, she has been needing these due to recurrent chest pain symptoms as well as night terrors, and she has tolerated them for a long time in the past. With syncopal episodes but also self-limited episode of chest pain underwent additional assessment with echocardiogram which showed normal ejection fraction, no gross wall motion abnormalities, marked markedly increased right ventricular size mildly decreased ventricular systolic function no gross morphologic valvular abnormalities. CT angiogram did not show any evidence of PE. Carotid Doppler is discussed with her with bilateral ICA stenosis less than 50%. Due to this she started on statin. She underwent evaluation with stress test as well which showed a small area of partially reversible perfusion deficit in inferolateral wall but this was noted improving on prone imaging. Admission artifact not ruled out. Less likely small area of prior infarct with small area of josue-infarct ischemia. Later that afternoon she developed persistent chest pressure and pain central, radiating to the jaw partially responsive to nitroglycerin and morphine. Required starting of nitroglycerin drip. Was further assessed in consultation by cardiology and further options were discussed. Given coronary disease risks persistent chest pain with possible unstable angina, possible false negative stress test, she ended up getting additional assessment with coronary angiography which showed nonobstructive coronaries. Her pain had resolved. With history of Prinzmetal angina she is continued on Imdur. Amlodipine is provided as needed to be taken only if blood pressure is not low. She is asked to follow-up with cardiology in office for further assessment and is leaving with a 30-day cardiac event monitor. She is asked to discontinue spironolactone and continue to monitor blood pressures including orthostatics at home, and maintain orthostatic precautions. Physical Exam Narrative: Accompanied by family. Const: COMMON NORMALS: patient oriented x3 and alert GENERAL APPEARANCE: cooperative ORIENTATION/CONSCIOUSNESS: Yes awake HENMT: COMMON NORMALS: oropharynx normal Neck/C-Spine: COMMON NORMALS: no JVD Resp: COMMON NORMALS: normal respiratory effort and clear to auscultation bilaterally AUSCULTATION: clear to auscultation bilaterally Cardio: COMMON NORMALS: no JVD, regular rhythm, S1 normal heart sound present, S2 normal heart sound present and No murmurs present (Cardio) RHYTHM: regular rhythm HEART SOUNDS: S1 normal heart sound present and S2 normal heart sound present GI: COMMON NORMALS: Normal to inspection, nondistended, normoactive bowel sounds present, Soft to palpation and non-tender PALPATION: Yes Soft to palpation Extremity: COMMON NORMALS: no joint enlargement and no pedal edema Neuro: COMMON NORMALS: patient oriented x3 and moves all extremities SENSORIUM/ORIENTATION: Yes alert Skin: COMMON NORMALS: no rashes or lesions noted GENERAL SKIN EXAM: no rashes or lesions noted Discharge Data Studies Completed and Pending Completed Studies During Hospitalization Category Date Time Status CT angio chest PE protcl [id number] Stat Cat Scan 12/30/24 10:47 Completed FIRE PROTECTION FABRICATOR request for service Routine Exams 01/01/25 06:31 Completed Cardiac Stress Test MIBI [Sestamibi Stress Test Request Exams 12/31/24 08:00 Completed ] Routine XR chest 1V portable [id number] Stat Exams 12/30/24 09:47 Completed NM milan perf SPECT r/s* [id number] Routine Nuc Med 12/31/24 15:40 Completed CV carotid duplex BI* [id number] Routine Ultrasound 12/30/24 14:47 Completed CV. echo limited [id number] Routine Ultrasound 12/30/24 14:48 Completed Pending at discharge Category Date Time Status Complete Blood Count w/Auto AM LABS Lab 01/02/25 04:00 Ordered Complete Blood Count w/Auto AM LABS Lab 01/02/25 04:00 Ordered Complete Blood Count w/Auto AM LABS Lab 01/03/25 04:00 Ordered Complete Blood Count w/Auto AM LABS Lab 01/03/25 04:00 Ordered Complete Blood Count w/Auto AM LABS Lab 01/04/25 04:00 Ordered Comprehensive Metabolic Panel AM LABS Lab 01/02/25 04:00 Ordered Comprehensive Metabolic Panel AM LABS Lab 01/02/25 04:00 Ordered Comprehensive Metabolic Panel AM LABS Lab 01/03/25 04:00 Ordered Comprehensive Metabolic Panel AM LABS Lab 01/03/25 04:00 Ordered Comprehensive Metabolic Panel AM LABS Lab 01/04/25 04:00 Ordered Platelet Count Q2D Lab 01/02/25 04:00 Ordered Platelet Count Q2D Lab 01/04/25 04:00 Ordered Urine Culture Stat Lab 12/30/24 16:00 Results Radiology Impressions Chest X-Ray 12/30/24 09:47 IMPRESSION: Stable chest without acute abnormality. Chest CTA 12/30/24 10:47 IMPRESSION: 1. No pulmonary embolism. 2. No pneumonia. 3. Moderate LEFT ventricular enlargement. 4. No pneumothorax. 5. Prior cholecystectomy. Laboratory Results WBC 8.92 10^3/uL (3.29-11.43) 01/01/25 04:09 RBC 4.06 10^6/uL (3.85-5.65) 01/01/25 04:09 Hgb 12.40 g/dL (11.27-16.99) 01/01/25 04:09 Hct 37.4 % (36-47) 01/01/25 04:09 MCV 92.1 fl (85-98) 01/01/25 04:09 MCH 30.5 pg (27-33) 01/01/25 04:09 MCHC 33.2 g/dL (30-55) 01/01/25 04:09 RDW 13.6 % (12.1-15.1) 01/01/25 04:09 Plt Count 149 10^3/cmm (157-399) L 01/01/25 04:09 MPV 12.2 fL (7.4-10.4) H 01/01/25 04:09 Neut % (Auto) 43.2 % 01/01/25 04:09 Lymph % (Auto) 42.6 % 01/01/25 04:09 [place] % (Auto) 9.2 % 01/01/25 04:09 Eos % (Auto) 4.0 % 01/01/25 04:09 Baso % (Auto) 0.7 % 01/01/25 04:09 Neut # (Auto) 3.85 10^3/uL (1.8-7.7) 01/01/25 04:09 Lymph # (Auto) 3.8 10^3/uL (0.8-4.8) 01/01/25 04:09 [place] # (Auto) 0.8 10^3/uL (0.2-0.9) 01/01/25 04:09 Eos # (Auto) 0.4 10^3/uL (0.0-0.8) 01/01/25 04:09 Baso # (Auto) 0.1 10^3/uL (0.0-0.1) 01/01/25 04:09 Nucleated RBC % (auto) 0 % 01/01/25 04:09 Nucleated RBCs # 0.0 /100WBC 01/01/25 04:09 APTT 94.1 SECONDS (23.9-36.7) H 01/01/25 10:27 Sodium 145 mmol/L (136-145) 01/01/25 04:09 Potassium 3.5 mmol/L (3.5-5.1) 01/01/25 04:09 Chloride 113 mmol/L (98-107) H 01/01/25 04:09 Carbon Dioxide 23 mmol/L (22-29) 01/01/25 04:09 Anion Gap 12.5 (5-19) 01/01/25 04:09 BUN 13 mg/dL (8-23) 01/01/25 04:09 Creatinine 0.7 mg/dL (0.5-0.9) 01/01/25 04:09 GFR Calculation 84.8 mL/min (90-130) L 01/01/25 04:09 Glucose 96 mg/dL (65-115) 01/01/25 04:09 Calculated Osmolality 300 mOsm/kg (285-295) H 01/01/25 04:09 Calcium 8.6 mg/dL (8.5-10.5) 01/01/25 04:09 Total Bilirubin 0.3 mg/dL (0.15-1.2) 01/01/25 04:09 AST 30 U/L (0-32) 01/01/25 04:09 ALT 25 U/L (0-33) 01/01/25 04:09 Alkaline Phosphatase 130 U/L (35-105) H 01/01/25 04:09 Troponin T Baseline 11 ng/L (0-10) H 12/31/24 13:58 Troponin T 120 Minute 12.93 ng/L (0-10) H 12/31/24 16:19 Delta Troponin T 1.93 ABS# (0-10) 12/31/24 16:19 Troponin T Hi Sens 6Hr 12.47 ng/L (0-10) H 12/31/24 19:39 Troponin T Hi Sens 6Hr Delta 1.47 ng/L (0-12) 12/31/24 19:39 Total Protein 5.4 g/dL (6.6-8.7) L 01/01/25 04:09 Albumin 2.9 g/dL (3.5-5.2) L 01/01/25 04:09 Globulin 2.5 g/dL (1.3-4.6) 01/01/25 04:09 Urine Color Yellow (Yellow) 12/30/24 16:00 Urine Appearance Clear (CLEAR) 12/30/24 16:00 Urine pH 5.5 (5-7) 12/30/24 16:00 Ur Specific [place] 1.032 (1.005-1.030) H 12/30/24 16:00 Urine Protein Negative (Negative) 12/30/24 16:00 Urine Glucose (UA) Negative (Normal) 12/30/24 16:00 Urine Ketones Negative (Negative) 12/30/24 16:00 Urine Blood 2+ (Negative) A 12/30/24 16:00 Urine Nitrate Positive (Negative) A 12/30/24 16:00 Urine Bilirubin Negative (Negative) 12/30/24 16:00 Urine Urobilinogen 0.2 mg/dL (Negative) 12/30/24 16:00 Ur Leukocyte Esterase 2+ (Negative) A 12/30/24 16:00 Urine RBC 6-10 /hpf (0-2) 12/30/24 16:00 Urine WBC 21-50 /hpf (0-5) H 12/30/24 16:00 Ur Squamous Epith Cells 0-5 /hpf (0-5) 12/30/24 16:00 Amorphous Sediment Not Reportable 12/30/24 16:00 Urine Bacteria 4+ /hpf (NONE) H 12/30/24 16:00 Hyaline Casts 2.05 /lpf 12/30/24 16:00 Vitals Last Vital Signs Temp 97.7 F 01/01/25 11:42 Pulse 83 01/01/25 11:42 Resp 20 H 01/01/25 11:42 BP 121/67 01/01/25 11:42 Pulse Ox 96 01/01/25 11:42 O2 Del Method Room Air 01/01/25 11:42 O2 Flow Rate 2 12/31/24 19:53 Discharge Plan Discharge Patient Disposition: Home Condition: Stable Prescriptions: New amlodipine 5 mg tablet 5 mg PO DAILY PRN (Reason: chest pain) Qty: 15 0RF Rx Instructions: Do not take if BP <110/60 or lightheaded atorvastatin [Lipitor] 40 mg tablet 40 mg PO QPM Qty: 90 0RF Continued prazosin 2 mg capsule 8 mg PO BEDTIME albuterol sulfate [Ventolin HFA] 90 mcg/actuation HFA aerosol inhaler 2 puff inhalation Q6H PRN (Reason: shortness of breath or wheezing) Qty: 8.5 0RF cyproheptadine 4 mg tablet 4 mg PO BEDTIME isosorbide dinitrate 30 mg Tablet 30 mg PO BID Rx Instructions: allow nitrate-free interval of 12-14 hrs per 24-hr period hydrocodone-acetaminophen 5-325 mg tablet 1 tab PO Q6H PRN (Reason: pain) Qty: 20 0RF pregabalin [Lyrica] 300 mg Capsule 300 mg PO BID omeprazole 20 mg capsule,delayed release(DR/EC) 20 mg PO BID Eliquis 5 mg Tablet 5 mg PO BID oxybutynin chloride 5 mg tablet 10 mg PO DAILY prochlorperazine maleate 10 mg tablet 10 mg PO DAILY PRN (Reason: Nausea) methocarbamol 750 mg tablet 750 mg PO TID PRN (Reason: Spasms) meclizine 25 mg tablet 25 mg PO QID PRN (Reason: dizziness) Qty: 30 0RF polyethylene glycol 3350 [Miralax] 17 gram/dose powder 17 g PO DAILY PRN (Reason: constipation ) Rx Instructions: Take 1 scoop daily while taking pain medications. Discontinued spironolactone 25 mg Tablet 25 mg PO BID Qty: 60 0RF Other Ambulatory Orders: MCT/Event Monitor 30 Days (Routine) Timeframe: [id number] Facility: [facility] - Location: Radiology Ordered By: Kesha Mcpherson Referrals: Kesha Mcpherson NP [Nurse Practitioner, Cardiology] - 01/07/25 8:30 am Anju Taveras FNP [Primary Care Provider, Nurse Practitioner] - 01/06/25 1:30 pm Discharge Diet: Diabetic Patient Instructions: Chest Pain (DC), Syncope (DC), Heart Catheterization (DC), Opioid Safety, Post Angiogram Home Care Instructions, Patient Portal & [place] Instructions Activity Restrictions/Additional Instructions: Please maintain orthostatic precautions rise slowly from laying to sitting to standing, in case he gets lightheaded sit down or lie down immediately. Please complete monitor worker and follow-up with your primary provider and cardiology for reassessment and results. Discontinue spironolactone. Monitor blood pressures at home twice daily. Check your blood pressure laying sitting and standing for 2 minutes. Follow-up with your primary doctor for further reassessment of orthostatic hypotension and consideration of de-escalation of other medications in case of persistence. In case of feeling unwell, check your blood pressure, take a small dose of amlodipine in case of chest pain as long as blood pressure is not low (no lower than (110/60) to see if it may help relieve the symptoms. Avoid lifting more than 2 pounds for 3 days. Monitor for any sign of pulsatile mass bleeding increasing pain or other issues at the access site after the angiogram. Seek medical attention in case of any worsening or new concerning symptoms. Follow-up with your primary doctor for further assessment. Discharge Attestations Time Spent in Discharge Care*: greater than 30 min Status at Discharge: Cognitive status at discharge: cognitively intact, Behavioral status at discharge: cooperative, Quality Metrics Clinical Quality Measures [ No reported AMI, CVA or VTE this stay] Coding Level of Care Code 64172 Total time (in minutes) for Discharge: 45 Diagnoses Primary hypertension I10 Hypertension type: primary hypertension Mixed hyperlipidemia E78.2 Hyperlipidemia type: mixed hyperlipidemia Prinzmetal angina I20.1 Ex-smoker Z87.891 Chest pain, unspecified type R07.9 Chest pain type: unspecified
[2025-01-01] MEDS: ertapenem 1,000 mg SDV 1000 MG IM (18:31)
== END 2025-01-01 18:52 | disposition home or self-care (01) | DRG 287 ==
LOC: ER 12:45 → CSU 15:11
PROVIDERS: Internal Medicine Cardiovascular Disease; Nurse Practitioner Family; Admitting Provider Internal Medicine; Emergency Provider Family Medicine; PCP Nurse Practitioner; Visit Provider Internal Medicine
PROC: 4A023N7 Measurement of Cardiac Sampling and Pressure, Left Heart, Percutaneous Approach (ICD-10-PCS; principal; 2025-01-01 10:00)
DX: I20.1 Angina pectoris with documented spasm (principal); N39.0 Urinary tract infection, site not specified; I10 Essential (primary) hypertension; E78.5 Hyperlipidemia, unspecified; I45.10 Unspecified right bundle-branch block; I95.1 Orthostatic hypotension; K21.9 Gastro-esophageal reflux disease without esophagitis; F41.9 Anxiety disorder, unspecified; F32.A Depression, unspecified; F43.10 Post-traumatic stress disorder, unspecified; Z87.891 Personal history of nicotine dependence; Z98.84 Bariatric surgery status; Z86.711 Personal history of pulmonary embolism; Z79.01 Long term (current) use of anticoagulants; Z86.39 Personal history of other endocrine, nutritional and metabolic disease
CPT/HCPCS: 36415; 71045; 71275; 78452; 80053; 81001; 84484; 85025; 85347; 85730; 87077; 87086; 87186; 93005; 93017; 93308; 93458; 93880; 96372; 96375; 99152; 99153; 99285; A9500; C1760; C1769; C1887; C1894; G0269; G0378; J1200; J1335; J1644; J2185; J2250; J2270; J2785; J3010; J3490; J7030; J8597; J9999; Q0163; Q9967

== ENCOUNTER 2025-01-06 09:44 | Outpatient (CLI) | payer OTHER, SELFPAY ==
--- NOTE | 2025-01-06 09:48 | US_ITS ---
WS: [id number] THYROID ULTRASOUND HISTORY: THYROID NODULE COMPARISON: None available. Right lobe: 2.5 cm x 2.1 cm x 4.7 cm (w x ap x l). Volume: 11.9 cm3. Enlarged RIGHT thyroid. There are a few scattered cystic areas consistent with colloid cysts. Solid isoechoic mass replacing nearly the entire RIGHT thyroid. Mass measures 2.9 x 2.0 x 3.1 cm. There are few scattered cystic areas within the solid component. Left lobe: 1.3 cm x 1.4 cm x 4.8 cm (w x ap x l). Volume: 4.1 cm3. Normal sized gland. Spongiform nodule 0.5 x 0.4 x 0.5 cm in the lower pole. Isthmus: 0.4 cm. US/US thyroid [id number] IMPRESSION: 1. TI-RADS 3; large nodule in the RIGHT thyroid. Recommend ultrasound-guided F NA at this time.
== END 2025-01-06 09:45 | disposition home or self-care (01) ==
LOC: RAD 09:45
PROVIDERS: PCP Nurse Practitioner; Visit Provider Nurse Practitioner Family
DX: E04.1 Nontoxic single thyroid nodule (principal)
CPT/HCPCS: 76536

== ENCOUNTER → 2025-01-07 08:18 | Outpatient (BNVA) | payer OTHER, SELFPAY | PROVIDERS: PCP Nurse Practitioner; Visit Provider Nurse Practitioner Family | DX: R42 Dizziness and giddiness (principal); R07.9 Chest pain, unspecified; E04.1 Nontoxic single thyroid nodule; I10 Essential (primary) hypertension; Z79.01 Long term (current) use of anticoagulants; Z87.891 Personal history of nicotine dependence | CPT/HCPCS: 36415; 80048; 83880; 85025; 99213 ==

== ENCOUNTER 2025-01-29 14:37 | Outpatient (CLI) | payer OTHER, SELFPAY ==
--- NOTE | 2025-01-29 14:43 | US_ITS ---
WS: [id number] ULTRASOUND THYROID FNA CLINICAL INFORMATION: R THYROID MASS TECHNIQUE: Ultrasound-guided FNA FINDINGS: The procedure including risks, benefits, and complications were discussed with the patient who agreed to proceed. Timeout was performed. Using sterile technique patient was prepped and draped in usual sterile fashion. After 1% lidocaine, using ultrasound guidance, a 25-gauge needle was advanced into the RIGHT thyroid nodule. 5 passes were made. Pathology was present for slide preparation. No immediate complications. Patient remained in the ultrasound suite 10 minutes postprocedure with intermittent ultrasound to ensure no hematoma. No hematoma 10 minutes postprocedure. US/US biopsy/FNA thyroid [id number] IMPRESSION: Uncomplicated ultrasound-guided thyroid FNA
== END 2025-01-29 14:38 | disposition home or self-care (01) ==
LOC: RAD 14:38
PROVIDERS: PCP Nurse Practitioner; Visit Provider Nurse Practitioner
DX: E04.1 Nontoxic single thyroid nodule (principal)
CPT/HCPCS: 10005; 88173

== ENCOUNTER → 2025-01-31 08:01 | Outpatient (BNVA) | payer OTHER, SELFPAY | PROVIDERS: PCP Nurse Practitioner; Visit Provider Nurse Practitioner | DX: M17.0 Bilateral primary osteoarthritis of knee (principal); Z71.89 Other specified counseling | CPT/HCPCS: 20610; J1100; J2795; J3301; J9999 ==

== ENCOUNTER 2025-04-16 12:15 | Emergency (ER) | payer OTHER, SELFPAY ==
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
--- OUTSIDE RECORDS SUMMARY | 2025-04-11 08:15 | XMS_ITS | Encounter Summary ---
Author Organization [facility] Address [address] [place] [id number] Care Team Providers Care Painter Sign Maintenance Name Role Phone Nayeli Gonzales MD Primary Care Provider [phone] Reason for Visit * Auth/Cert (Routine) Specialty Diagnoses / Procedures Referred By Subha milner Referred To Contact Perioperative Diagnoses Thyroid nodule Procedures ID THYROIDECTOMY TOTAL/COMPLETE THYROIDECTOMY Jimmy Michel MD [address] [place] [address] Phone: tel: fax: [facility] [address] [address] Phone: tel: fax: Referral ID Status Reason Start Date Expiration Date Visits Re quested Visits Authorized [id number] 1 1 Encounter Details Date Type Department Care Team (Latest Contact Info) Description 04/11/2025 8:[address] [facility] - 04/11/2025 12:[address] [facility] Hospital Encounter [facility] [address] [address] Jimmy Michel MD [address] [address] Thyroid nodule Discharge Disposition: Home or Self Care Social History Tobacco Use Types Packs/Day Years Used Date Smoking Tobacco: Former Smokeless Tobacco: Never Alcohol Use Standard Drinks/Week Comments Not Currently 0 (1 standard drink = 0.6 oz pur e alcohol) Feeling Safe Answer Date Recorded Are you in a relationship wi th someone who hurts you emotionally and/or physically? No 04/11/2025 Comments No Sex and Gender Information Value Date Recorded Sex Assigned at Not on file Legal Sex Female 11:49 PM SWITCH CLEANER Gender Identity Not on file Sexual Orientation Not on file documented as of this encounter Last Filed Vital Signs Vital Sign Reading Time Taken Comments Blood Pressure 150/65 04/11/2025 12:30 PM SWITCH CLEANER Pulse 64 04/11/2025 12:30 PM SWITCH CLEANER Temperature 36.3 C (97.4 F) 04/11/2025 11:44 AM SWITCH CLEANER Respiratory Rate 14 04/11/2025 12:3 0 PM SWITCH CLEANER Oxygen Saturation 96% 04/11/2025 12: 30 PM SWITCH CLEANER Inhaled Oxygen Concentration - - Weight 111.9 kg (246 lb 9.6 oz) 04/11/2025 8:27 AM SWITCH CLEANER Height 170.2 cm (5' 7 ) 04/11/2025 8:27 AM SWITCH CLEANER Body Mass Index 38.62 04/11/2025 8:27 AM SWITCH CLEANER documented in this encounter Discharge Instructions * Discharge Instructions* Betty Sullivan RN - 04/11/2025 11:05 AM SWITCH CLEANER Tylenol 1000mg every 8 hours for pain Motrin 600mg every 6 hours for pain Cold packs to neck No showering x24 hours No bathing x1 week YOU ARE URGED TO FOLLOW CAREFULLY THE FOLLOWING INSTRUCTIONS REGARDING ANESTHESIA If you had general or local anesthesia with sedation, please pay particular attention to the following instructions: 1. Do not drink alcoholic beverages-including beer for 24 hours. Alcohol enhances the effects of anesthesia and sedation. 2. Do not drive a motor vehicle, operate machinery or power tools for 24 hours, if a child, no bicycle riding, skateboards, gym sets, etc., for 24 hours. 3. Do not make any important decisions or sign important papers for 24 hours. 4. You may experience lightheadedness, dizziness, and sleepiness following surgery. Please DO NOT STAY ALONE. A responsible adult should be with you for this 24 hour period. 5. Rest at home with moderate activity as tolerated. It may not be necessary to go to bed; however,it is important to rest for 24 hours following general anesthesia. 6. Progress slowly to a regular diet unless your physician has instructed you otherwise. Start withliquids, such as soft drinks, then soup and crackers, gradually working up to solid foods. 7. Certain anesthetics and pain medications may produce nausea and vomiting in certain individuals.If nausea becomes a problem at home, call your physician. In the meantime, rest and sleep on your side to avoid accidentally inhaling material that you may vomit. A CARPET INSTALLATION SPECIALIST FROM THE SAME DAY SURGERY DEPARTMENT MAY CALL YOU BY TELEPHONE THE NEXT DAY AFTER SURGERY. DO NOT BE ALARMED. THIS IS A ROUTINE CALL TO FIND OUT HOW YOU ARE PROGRESSING AFTER YOUR SURGERY. REGARDING MEDICATIONS: 1. If your physician ordered pain medication, please take it as directed. Do not drive a motor vehicle, operate machinery, or operate power tools while taking this medication. CH CLEANER CH CLEANER documented in this encounter Medications at Time of Discharge oxyCODONE (ROXICODONE) 5 mg tabletIndication s:Thyroid nodule Take 1 Tablet (5 mg) by mouth every 4 hours as needed for Pain. Max Daily Amount: 30 mg 20 Tablet 04/11/2025 naloxone (NARCAN) 4 mg/spray Valier, Non-Aerosol EMERGENCY USE ONLY: Administer 1 spray (4 mg) in one nostril one time. May repeat in alternating nostrils every 2-3 min until responsive or EMS arrives. 2 Each 3 04/11/2025 acetaminophen (TylenoL) 325 mg tablet Take 325 mg by mouth every 6 hours as needed for Pain. amLODIPine (NORVASC) 5 mg tablet Take 5 mg by mouth daily. 01/02/2025 zinc SULFATE 50 mg zinc (220 mg) capsule Take 220 mg by mouth daily. 10/16/2024 spironolactone (ALDACTONE) 25 mg tablet Take 25 mg by mouth 2 times daily. prochlorperazine maleate (COMPAZINE) 10 mg tablet Take 10 mg by mouth every 8 hours. 03/20/2024 pregabalin (LYRICA) 300 mg Capsule Take 300 mg by mouth every 12 hours. 06/13/2021 prazosin (MINIPRESS) 2 mg capsule Take 2 mg by mouth daily at bedtime. Takes 8mg daily pm oxyBUTYnin (DITROPAN XL) 15 mg Extended Release 24 hour tablet Take 30 mg by mouth. 02/20/2021 omeprazole (PriLOSEC) 40 mg Capsule, Delayed Release(E.C.) Take 40 mg by mouth 2 times daily. 11/14/2022 nitroglycerin (NITRO-TIME) 6.5 mg Extended Release capsule Take 6.5 mg by mouth every 12 hours. 03/20/2024 fluticasone propionate (FLONASE) 50 mcg/spray Valier, Suspension nasal inhaler Administer in each nostril. 07/10/2023 DULoxetine (CYMBALTA) 60 mg Capsule, Delayed Release(E.C.) Take 60 mg by mouth. 09/29/2023 glucose 4 gram Tablet, Chewable CHEW AND SWALLOW FIVE TABLETS BY MOUTH NEEDED FOR LOW BLOOD SUGAR. REPEAT DOSE IF HYPOGLYCEMIA CONTINUES 15 MINUTES AFTER THE FIRST DOSE. 02/25/2021 cyproheptadine (PERIACTIN) 4 mg tablet Take 4 mg by mouth daily at bedtime. 08/11/2023 cyanocobalamin (VITAMIN B-12) 1,000 mcg/mL Solution Inject by intramuscular injection every 30 days. 11/14/2022 busPIRone (BUSPAR) 10 mg tablet Take 20 mg by mouth every 12 hours. 09/28/2023 ALPRAZolam (XANAX) 0.5 mg tablet Take 0.5 mg by mouth. 09/28/2023 albuterol sulfate HFA 90 mcg/actuation aerosol inhaler Take by inhalation. 07/10/2023 cpap biomedical engineering aide CPAP @ 11 cw with heated humidifier. Length of need:99 months; [...] download feature and mask fitting. 1 Each 03/16/2021 documented as of this encounter H&P Notes * Jimmy Michel MD - 04/11/2025 9:22 AM CST Patient seen and examined today. I agree with findings and documentation of prior The rationale for surgical intervention was reviewed with the patient and family. We discussed alternatives to surgery including observation. The risks of anesthesia and surgery were reviewed and they understand that, although unlikely, severe complications including are possible. They understand these risks and decided to proceed with the surgical procedure. Jimmy Michel MD CH CLEANER documented in this encounter OR Notes * Patt-OP - Betty Sullivan RN - 04/11/2025 12:37 PM CST Discharge instructions reviewed with patient and senior label specialist verbalizing understanding. Copy given topatient/senior label specialist. Patient escorted out with no distress noted. CH CLEANER * Operative Report - Jimmy Michel MD - 04/11/2025 10:59 AM CST Randi Kay CSN: [id number] Date of Service: 04/11/2025 Surgeon: Jimmy Michel MD Preoperative Diagnosis: 1. Right thyroid nodule Postoperative Diagnosis: 1. Same Procedure: 1. Right hemithyroidectomy with isthmusectomy 2. Excisional lymph node biopsy right central neck Anesthesia: General Indications: Randi Kay is a 65 y.o. female with a large irritative right thyroid seeking removal. After reviewing the options with the patient, including the risks and potential complications of the surgical procedure, she opted to proceed with surgical intervention. Description of Procedure: The patient was brought to the operating room, anesthetized, intubated and then prepared and drapedin the usual fashion. An endotracheal tube with surface electrodes for EMG recording was used and the leads were then connected to the nerve integrity monitor. A transverse incision was made in the low-collar line. The platysma was divided and subplatysmal flaps were elevated. The strap muscles were identified and the fascia was incised in the midline. We began on the right side and elevated the strap muscles away from the thyroid capsule. The sternothyroid was not divided and we dissected over the thyroid capsule to the level of the carotid sheathand divided and ligated the middle thyroid vein. We then dissected the superior pole vessels and divided and ligated them close to the thyroid capsule. We then dissected inferiorly between the trachea and the carotid sheath, freeing the inferior pole. We used blunt dissection to free the fascial attachments and deliver the inferior pole. The recurrent laryngeal nerve was identified and we then dissected along the nerve freeing the thyroid away from the nerve up to the entry point of the nerve into the larynx. The inferior thyroid artery was divided and ligated close to the thyroid capsule. Vessels at Horowitz's ligament were divided and ligated and the thyroid lobe was then freed from the tracheal fascia. A swath of lymphatic tissue was removed alongside the thyroid where there seemed to be a collectionof nodes vs dense fatty tissue. This was sent as a central neck specimen.. The specimen was marked with a long suture in the superior pole. The nerve stimulator was used to stimulate the RLN and confirm that we could elicit EMG activity from the vagus nerve. The wound was copiously irrigated and hemostasis achieved with bipolar cautery. The wound was then closed in layers in the usual fashion. 3-0 Polysorb was used for the platysma and the skin was then closed in a running subcuticular fashion with 4-0 Biosyn V-lock. Surgical glue was applied to the skin edges and the patient was then awakened, extubated and transferred to the recovery room in good condition Findings: RLN stimulates well from vagus Estimated Blood Loss: 5 mL I attest I was present and performed this surgical procedure. Jimmy Michel MD CH CLEANER documented in this encounter Plan of Treatment Upcoming Encounters Date Type Department Care Team (Late st Contact Info) Description 04/22/2025 1:30 PM SWITCH CLEANER Office Visit [facility] [address] [place] [address] Laura Guallpa FNP [address] [place] [address] 07/11/2025 12:45 PM SWITCH CLEANER Office Visit [facility] Endocrinology [facility] [address] [place] [id number] Sanket Carlton MD [address] [phone] documented as of this encounter Procedures Procedure Name Priority Date/Time Associated Diagnosis Comments TELEMETRY REPORT 04/15/2025 10:3 1 AM SWITCH CLEANER POC GLUCOSE Routine 04/11/2025 11:13 AM SWITCH CLEANER PATHOLOGY Pathology 04/11/2025 10:35 AM SWITCH CLEANER Thyroid nodule ID THYROIDECTOMY TOTAL/COMPLETE 04/11/2025 9:55 AM SWITCH CLEANER Thyroid nodule documented in this encounter Results * TELEMETRY REPORT (04/15/2025 10:31 AM SWITCH CLEANER) us Provider Scanning ECG ORDERABLES Final Result * (ABNORMAL) POC GLUCOSE (04/11/2025 11:13 AM SWITCH CLEANER) GLUCOSE POC 118(H) 74 - 99 mg/dL 04/11/2025 11:13 AM SWITCH CLEANER [facility] SPECIMEN SOURCE, GLUCOSE POC Capillary 04/11/2025 11:13 AM SWITCH CLEANER [facility] Blood, whole 04/11/2025 11:1 3 AM SWITCH CLEANER 04/11/2025 11:21 AM SWITCH CLEANER us Jimmy Michel MD POINT OF CARE TESTING Final Res ult [facility] # [id number] [address] [place] [id number] * PATHOLOGY (04/11/2025 10:35 AM SWITCH CLEANER) CASE REPORT Surgical Pathology Report Case: [id number] Authorizing Provider: Jimmy Michel MD Collected: 04/11/2025 10:35 AM Ordering Location: [facility] E Received: 04/11/2025 12:32 [address] Pathologist: Corrine Maria MD Specimens: A) - Thyroid, right B) - Lymph node, central neck 1:37 PM [facility] FINAL DIAGNOSIS A. Right thyroid, lobectomy - Benign thyroid with follicular nodular disease, 3.5 cm dominant nodule - Normocellular parathyroid gland identified / B. Central neck lymph nodes, dissection - 4 benign lymph nodes (0/4) Corrine Maria MD [id number] 1:37 PM [facility] at [address] SWITCH CLEANER GROSS DESCRIPTION A. Received in a container of formalin labeled Eliza -right thyroid is a 14 g, 4.7 x 3.2 x 2.7 cm right thyroid lobectomy. A suture brower the right superior pole. The isthmus margin is inked black and the remaining outer surface is inked blue. The specimen is sectioned from superior to inferior to reveal a 3.5 x 2.7 x 2.2 cm guzman-pink encapsulated well-circumscribed mass involving the superior to inferior pole, 0.3 cm from the isthmus margin. No other masses or lesions are identified. Concrete Foreman sections are submitted as follows: A1: Mass with isthmus margin, perpendicular A2-A8: Remaining nodule capsule A9: Uninvolved right superior pole B. Received in a container of formalin labeled Eliza -central neck node is a 1.7 x 1.2 x 0.5 cm aggregate of fibroadipose tissue. The specimen is palpated to reveal 4 lymph nodes, that range from 0.2 to 0.3 cm in greatest dimension. The lymph nodes are submitted entirely in B1. Grossed by: Ariadne Reyes MS, PA ([facility])CM 5 1:37 PM [facility] OPERATIVE PROCEDURE 1: THYROIDECTOMY 5 1:37 PM [facility] CLINICAL INFORMATION right thyroid stitch brower superior pole Thyroid nodule [E04.1] 5 1:37 PM [facility] COMMENT The Rerecipe voice-activated dictation system may have been used in the creation of this report. Inherent to this system is the possibility of errors in syntax, grammar, punctuation, or other areas that could impact interpretation. If there are interpretive questions about the report, please contact the performing pathologist. Unless gross only is specified in the diagnosis, the microscopic examination substantiates the above cited diagnosis. The performance characteristics of all immunohistochemical stains cited in this report (if any) were determined by the Diagnostic Immunohistochemistry Laboratory of [facility] in compliance with CLIA'88 regulations. Some of these tests rely on the use of analyte specific reagents and are subject to specific labeling requirements by the FDA. All controls show appropriate reactivity. This testing was developed by the [facility] Immunohistochemistry Laboratory of [facility]. It has not been cleared or approved by the FDA. The FDA has determined that such clearance or approval is not necessary. 1:37 PM SWITCH CLEANER [facility] Tissue ENTIRE THYROID GLAND / Unknown Collection / Unknown 04/11/2025 10:35 AM SWITCH CLEANER 04/11/2025 12:32 PM SWITCH CLEANER Comment:right thyroid stitch brower superior pole Tissue specimen (specimen) ENTIRE LYMPH NODE / Unknown 04/11/2025 10:40 AM SWITCH CLEANER 04/11/2025 12:32 PM SWITCH CLEANER Comment:central neck node us Jimmy iMchel MD PATHOLOGY/CYTOLOGY ORDERABLES F inal Result [facility] # [id number] [address] [place] [id number] documented in this encounter Visit Diagnoses Diagnosis Thyroid nodule Nontoxic uninodular goiter documented in this encounter Administered Medications Inactive Administered Medications - up to 3 most recent administrations Medication Order MAR Action Action Date Dose Rate Site diphenhydrAMINE (BENADRYL) injection 12.5 mg 12.5 mg, IV, POST-PROCEDURE ONCE PRN, 1 dose, Starting on Mon04/11/25 at 0935, Until Mon04/11/25 at 1625, Nausea/Emesis, Routine, PACU diphenhydrAMINE (BENADRYL) injection 12.5 mg 12.5 mg, IV, POST-PROCEDURE ONCE PRN, 1 dose, Starting on Mon04/11/25 at 0935, Until Mon04/11/25 at 1625, Nausea/Emesis, Routine, PACU fentaNYL (PF) (SUBLIMAZE) 50 mcg/mL injection 50 mcg 50 mcg, IV, POST-PROCEDURE Q 3 MINUTES PRN, 5 doses, Starting on Mon04/11/25 at 0935, Until Mon04/11/25 at 1625, Pain, Severe, Routine, PACU Given 04/11/2025 11:27 AM SWITCH CLEANER 50 mcg Given 04/11/2025 11:16 AM SWITCH CLEANER 50 mcg HYDROmorphone (PF) (DILAUDID) injection 0.6 mg 0.6 mg, IV, POST-PROCEDURE Q 5 MINUTES PRN, 5 doses, Starting on Mon04/11/25 at 0935, Until Mon04/11/25 at 1625, Pain, Severe, Routine, PACU lactated ringers infusion IV, at 40 mL/hr, CONTINUOUS, Starting on Mon04/11/25 at 0915, Until Mon04/11/25 at 1625, Routine, Pre-op Restarted 04/11/2025 9:42 AM SWITCH CLEANER New Bag 04/11/2025 9:15 AM SWITCH CLEANER 40 mL/hr naloxone (NARCAN) 0.4 mg/mL injection 0.1-0.4 mg 0.1-0.4 mg, IV, SEE ADMIN INSTRUCTIONS, Starting on Mon04/11/25 at 0935, Until Mon04/11/25 at 1625, Routine, PACU oxyCODONE (ROXICODONE) tablet 5 mg 5 mg, Oral, EVERY 6 HOURS PRN, Starting on Mon04/11/25 at 1212, Until Mon04/11/25 at 1625, Pain (See admin instructions), Routine Given 04/11/2025 12:15 PM SWITCH CLEANER 5 mg prochlorperazine (COMPAZINE) injection 5 mg 5 mg, IV, POST-PROCEDURE ONCE PRN, 1 dose, Starting on Mon04/11/25 at 0935, Until Mon04/11/25 at 1625, Nausea/Emesis, Routine, PACU sodium chloride 0.9 % infusion IV, at 125 mL/hr, POST-PROCEDURE CONTINUOUS, Starting on Mon04/11/25 at 0945, Until Mon04/11/25 at 1625, Routine, PACU sodium chloride flush injection 10 mL 10 mL, IV, SEE ADMIN INSTRUCTIONS, Starting on Mon04/11/25 at 0914, Until Mon04/11/25 at 1625, Routine, Pre-op documented in this encounter Active and Recently Administered Medications Times are shown in SWITCH CLEANER. Scheduled Medication Order 04/09/2025 04/10/2025 04/11/2025 naloxone (NARCAN) 0.4 mg/mL injection 0.1-0.4 mg 0.1-0.4 mg, IV, SEE ADMIN INSTRUCTIONS, Starting on Mon04/11/25 at 0935, Until Mon04/11/25 at 1625, Routine, PACU sodium chloride flush injection 10 mL 10 mL, IV, SEE ADMIN INSTRUCTIONS, Starting on Mon04/11/25 at 0914, Until Mon04/11/25 at 1625, Routine, Pre-op Continuous Medication Order 04/09/2025 04/10/2025 04/11/2025 lactated ringers infusion IV, at 40 mL/hr, CONTINUOUS, Starting on Mon04/11/25 at 0915, Until Mon04/11/25 at 1625, Routine, Pre-op 0915 (New Bag - Prov ider: Fariba Garsia RN)0941 (Paused - Provider: Paola Dillard CRNA - Comment: Switch to gravity)0942 (Restarted - Provider: Paola Dillard CRNA)1107 (Fluid Volume - Provider: Paola Dillard CRNA)1625 (Due: Order Ending - Provider: PROVIDER, DISCHARGE PATIENT - Comment: [Order ends at this time. Document the following action when infusion is complete: Stopped]) sodium chloride 0.9 % infusion IV, at 125 mL/hr, POST-PROCEDURE CONTINUOUS, Starting on Mon04/11/25 at 0945, Until Mon04/11/25 at 1625, Routine, PACU 0945 (Due) PRN Medication Order 04/09/2025 04/10/2025 04/11/2025 diphenhydrAMINE (BENADRYL) injection 12.5 mg 12.5 mg, IV, POST-PROCEDURE ONCE PRN, 1 dose, Starting on Mon04/11/25 at 0935, Until Mon04/11/25 at 1625, Nausea/Emesis, Routine, PACU diphenhydrAMINE (BENADRYL) injection 12.5 mg 12.5 mg, IV, POST-PROCEDURE ONCE PRN, 1 dose, Starting on Mon04/11/25 at 0935, Until Mon04/11/25 at 1625, Nausea/Emesis, Routine, PACU fentaNYL (PF) (SUBLIMAZE) 50 mcg/mL injection 50 mcg 50 mcg, IV, POST-PROCEDURE Q 3 MINUTES PRN, 5 doses, Starting on Mon04/11/25 at 0935, Until Mon04/11/25 at 1625, Pain, Severe, Routine, PACU 1116 (Given - Provid er: Karli Benoit RN)1127 (Given - Provider: Karli Benoti RN) HYDROmorphone (PF) (DILAUDID) injection 0.6 mg 0.6 mg, IV, POST-PROCEDURE Q 5 MINUTES PRN, 5 doses, Starting on Mon04/11/25 at 0935, Until Mon04/11/25 at 1625, Pain, Severe, Routine, PACU lidocaine-EPINEPHrine (XYLOCAINE-EPI) 1 %-1:100,000 injection (CANCELED) INTRA-PROCEDURE PRN, Starting on Mon04/11/25 at 1005, Until Mon04/11/25 at 1104, Routine, Intra-op 1005 (Given - Provid er: Jimmy Michel MD) oxyCODONE (ROXICODONE) tablet 5 mg 5 mg, Oral, EVERY 6 HOURS PRN, Starting on Mon04/11/25 at 1212, Until Mon04/11/25 at 1625, Pain (See admin instructions), Routine 1215 (Given - Provid er: Betty Sullivan RN) prochlorperazine (COMPAZINE) injection 5 mg 5 mg, IV, POST-PROCEDURE ONCE PRN, 1 dose, Starting on Mon04/11/25 at 0935, Until Mon04/11/25 at 1625, Nausea/Emesis, Routine, PACU documented in this encounter Care Teams Painter Sign Maintenance Relationship Specialty Start Date End Date Nayeli Gonzales MD [address] [place] [id number] PCP - General Family Practice 06/22/10 documented as of this encounter
--- OUTSIDE RECORDS SUMMARY | 2025-04-11 09:42 | XMS_ITS | Encounter Summary ---
Author Organization [facility] Address [address] [place] [id number] Care Team Providers Care Dry Wall Sprayer Name Role Phone Nayeli Gonzales MD Primary Care Provider [phone] Reason for Visit * Auth/Cert (Routine) Specialty Diagnoses / Procedures Referred By Subha milner Referred To Contact Perioperative Diagnoses Thyroid nodule Procedures [place] THYROIDECTOMY TOTAL/COMPLETE THYROIDECTOMY Jimmy Michel MD [address] [address] Phone: tel: fax: [facility] [address] [address] Phone: tel: fax: Referral ID Status Reason Start Date Expiration Date Visits Re quested Visits Authorized [id number] 1 1 Encounter Details Date Type Department Care Team (Late st Contact Info) Description 04/11/2025 9:42 AM INSULATION BOARD HEAD SAW OPERATOR Anesthesia Event [facility] [address] [address] Jared Jaramillo III, MD [address] [place] [address] Paola Dillard CRNA [address] [place] [address] Anesthesia Record Procedure Summary Procedure Name Responsible Anesthesiologist Anesthesia Start Time Anesthesia Stop Time THYROIDECTOMY (Right: Neck) Jared Jaramillo III, MD 04/11/25 0942 04/11/25 1109 Events Date Time Event Comment 04/11/2025 0937 0942 AN Equip Check Anesthesia eq uipment and materials checked in accordance with local policy. 0942 An Start 0944 In Room This event disp lays the In Room time documented in the Surgical Log. Deleting this event will not remove it from the log but will remove it from the Grid and Graph timeline. 0944 An Start Data 0946 Pre-Induction Immediate pre- induction anesthetic assessment performed. Vital signs as noted on graphic. 0949 An Induction 0951 An Intubation 0954 Anesthesia Ready 1005 Procedure Start This event d isplays the Procedure Start time documented in the Surgical Log. Deleting this event will not remove it from the log but will remove it from the Grid and Graph timeline. 1049 An Extubation Emergence unev entful Awake, spontaneous respirations. Adequate muscle strength demonstrated Adequate tidal volume. Orapharynx suctioned. Extubated with positive pressure ventilation. 1051 Procedure Stop This event di splays the Procedure Stop time documented in the Surgical Log. Deleting this event will not remove it from the log but will remove it from the Grid and Graph timeline. 1052 Out of Room This event disp lays the Out of Room time documented in the Surgical Log. Deleting this event will not remove it from the log but will remove it from the Grid and Graph timeline. 1052 an stop data 1109 An Stop 1109 Hand-off to Receiving Clinic nick Meds Name Total ceFAZolin (ANCEF) 1000 mg vial 2,000 mg succinylcholine (ANECTINE) 20 mg/mL inje ction 100 mg propofol (DIPRIVAN) 10 mg/mL injection 200 mg propofol (DIPRIVAN) 10 mg/mL injection 1,418.33 mg fentaNYL (SUBLIMAZE) PF 50 mcg/mL injection 100 mcg lidocaine PF (XYLOCAINE MPF) 1% injectio n 3 mL phenylephrine 20 mg in sodium chloride 0 .9 % 250 mL infusion 0.43 mg lactated ringers infusion 650 mL * Agents Name Air O2 O2 * Blood No blood administrations on file. Lines, Drains, and Airways Type Details Placement Removal Wound 04/11/25; 0941; Bilateral; neck; Surgical 04/11/25 0941 by Karin Casarez RN Wound 04/11/25; 1047; othe r (comment); neck; Surgical 04/11/25 1047 by Ney Pelletier RN Peripheral IV Pre-Hospital Start: No; Orientation: Right; Location: Antecubital; Device: Angiocath; Gauge: 20 gauge; Needle Length: 1.25 in length; Insertion Attempts: 1; Patient Tolerance: tolerated well; Pain Prevention: distraction 04/11/25 0912 by Sowmya Aguilera RN 04/11/25 1230 by Betty Sullivan RN Endotracheal Airway Type: Oral, NIM ETT; Cuff Pressure: minimal occluding volume, cuff inflated; Size: 7; Attempts: 1; FOV: I; cm: 23; Device: Curved Blade, Stylet; Blade: 3; Secured: secured with tape; Verification: Auscultated bilateral breath sounds, Equal chest movement, Continuous waveform capnography 04/11/25 0951 by Paola Dillard CRNA 04/11/25 1049 by Paola Dillard CRNA documented in this encounter Social History Tobacco Use Types Packs/Day Years [...] on file Legal Sex Female 11:49 PM INSULATION BOARD HEAD SAW OPERATOR Gender Identity Not on file Sexual Orientation Not on file documented as of this encounter OR Notes * Anesthesia Postprocedure Evaluation - Jared Jaramillo III, MD - 04/11/2025 12:24 PM CST Post Anesthesia Evaluation Vitals: Vitals Value Taken Time BP 131/58 04/11/25 11:44 Temp 36.3 ??C 04/11/25 11:44 Resp 14 04/11/25 11:44 SpO2 97 % 04/11/25 11:44 Pulse 64 04/11/25 11:44 Heart Rate 69 bpm 04/11/25 11:40 Pain Rating: Pain Rating: Rest: 4 (04/11/25 112) Presence of Pain: complains of pain/discomfort (04/11/25 112) Anesthesia Post Evaluation Patient location during evaluation: PACU Patient participation: patient was able to participate in the post op evaluation Level of consciousness: 0 = alert, responsive, answers simple questions appropriately, able to perform simple tasks Pain management: adequate Airway patency: patent Nausea or Vomiting: none Cardiovascular status: regular rate and rhythm Respiratory status: no respiratory symptoms Hydration status: well hydrated No notable events documented. Jared Jaramillo III, MD LATION BOARD HEAD SAW OPERATOR * Anesthesia Handoff - Paola Dillard CRNA - 04/11/2025 11:08 AM CST Post-Anesthetic transfer of care report elements to appropriate post-anesthesia recovery environment completed in accordance with procedure. I completed my handoff to the receiving nurse during which we: 1. Identified the patient 2. Identified the responsible provider 3. Reviewed the pertinent medical history 4. Discussed the surgical course 5. Reviewed intra-op anesthesia management and issues during anesthesia 6. Set expectations for post-procedure period 7. Orders as necessary and appropriate for continuation of care are present in Epic. 8. Allowed opportunity for questions and acknowledgement of understanding. Vital Signs: Vitals Value Taken Time BP 134/59 04/11/25 11:06 Temp Resp 19 04/11/25 11:08 SpO2 98 % 04/11/25 11:08 Pulse 74 04/11/25 11:08 Heart Rate 76 bpm 04/11/25 11:08 Vitals shown include unfiled device data. 11:08 AM Paola Dillard CRNA LATION BOARD HEAD SAW OPERATOR * Anesthesia Preprocedure Evaluation - Jared Jaramillo III, MD - 04/11/2025 9:30 AM CST Relevant Problems No relevant active problems Anesthesia Evaluation Anesthesia Plan ASA Final: 3 General Intravenous induction Oral ETT airway maintenance NPO status > 8 hours Anesthetic plan and risks discussed with Patient. Preanesthesia Evaluation Randi Kay is a 65 y.o. female Date: 04/11/2025 Time: 9:31 AM Interview: Holding Discussed with: patient Preoperative Diagnosis @ORPREDX@ Scheduled Procedure THYROIDECTOMY NPO: LSFmn LLFmn GERD: yes Allergies Allergen Reactions Mushroom Anaphylaxis Ondansetron Anaphylaxis, Seizure, Other (See Comments) and Unknown Tetracycline Rash and Swelling Trouble swallowing Trazodone Other (See Comments) paralysis Venom-Honey Bee Anaphylaxis Oxycodone-Aspirin Rash Venlafaxine Rash Past Medical History: Diagnosis Date Arthritis Deep vein thrombosis (DVT) ([facility] 2024 PE Depression ILDA (generalized anxiety disorder) GERD (gastroesophageal reflux disease) Hx of Prinzmetal angina Malignant neoplasm of breast (female), unspecified site uterine Motion sickness MRSA (methicillin resistant Staphylococcus aureus) 2006 staph infection where pain pump was implanted Obstructive sleep apnea Post-operative nausea and vomiting Past Surgical History: Procedure Laterality Date HX APPENDECTOMY HX CHOLECYSTECTOMY HX HEART CATHETERIZATION HX KNEE REPLACEMENT HX TONSILLECTOMY No current facility-administered medications on file prior to encounter. Current Outpatient Medications on File Prior to Encounter Medication Sig Dispense Refill acetaminophen (TylenoL) 325 mg tablet Take 325 mg by mouth every 6 hours as needed for Pain. zinc SULFATE 50 mg zinc (220 mg) capsule Take 220 mg by mouth daily. spironolactone (ALDACTONE) 25 mg tablet Take 25 mg by mouth 2 times daily. pregabalin (LYRICA) 300 mg Capsule Take 300 mg by mouth every 12 hours. prazosin (MINIPRESS) 2 mg capsule Take 2 mg by mouth daily at bedtime. Takes 8mg daily pm oxyBUTYnin (DITROPAN XL) 15 mg Extended Release 24 hour tablet Take 30 mg by mouth. omeprazole (PriLOSEC) 40 mg Capsule, Delayed Release(E.C.) Take 40 mg by mouth 2 times daily. DULoxetine (CYMBALTA) 60 mg Capsule, Delayed Release(E.C.) Take 60 mg by mouth. busPIRone (BUSPAR) 10 mg tablet Take 20 mg by mouth every 12 hours. ALPRAZolam (XANAX) 0.5 mg tablet Take 0.5 mg by mouth. cpap medical radiation tech CPAP @ 11 cwp with heated humidifier. Length of need:99 months; [...] download feature and mask fitting. 1 Each 0 amLODIPine (NORVASC) 5 mg tablet Take 5 mg by mouth daily. prochlorperazine maleate (COMPAZINE) 10 mg tablet Take 10 mg by mouth every 8 hours. nitroglycerin (NITRO-TIME) 6.5 mg Extended Release capsule Take 6.5 mg by mouth every 12 hours. fluticasone propionate (FLONASE) 50 mcg/spray [place], Suspension nasal inhaler Administer in each nostril. glucose 4 gram Tablet, Chewable CHEW AND SWALLOW FIVE TABLETS BY MOUTH NEEDED FOR LOW BLOOD SUGAR. REPEAT DOSE IF HYPOGLYCEMIA CONTINUES 15 MINUTES AFTER THE FIRST DOSE. cyproheptadine (PERIACTIN) 4 mg tablet Take 4 mg by mouth daily at bedtime. cyanocobalamin (VITAMIN B-12) 1,000 mcg/mL Solution Inject by intramuscular injection every 30 days. albuterol sulfate HFA 90 mcg/actuation aerosol inhaler Take by inhalation. Physical Exam: Airway Class: III (soft palate, base of uvula visible) Pulmonary: clear to auscultation, no wheezes or rales, and unlabored breathing Cardiac: regular rate and rhythm, S1, S2 normal, no murmur, click, rub or gallop Pertinent lab: No results found for: HGBA1C , MICROALBUMIN , MALBUR , [id number] , LDLCALC , LDLDIRECT , CREAT No results found for: CHOLTOT , HDL , LDLCALC , LDLDIRECT , TRIGLYCERIDE , ALT , AST No results found for: CREAT , CREATPOC , BUN , BUNPOC , NA , K , KPOC , CL , CO2 , CREATCLEAR , [id number] , GFR No results found for: WBC , MANUALWBC , HGB , HGBPOC , HCT , HCTPOC , PLT , MCV , IRON , TIBC , FERRITIN No results found for: ALT , AST , GGT , ALKPHOS , BILIDIRECT , BILIINDIRECT , BILITOTAL No results found for: TSH , TSHULTRA , THYROIDSTIM , T3 , T3FREE , [id number] , T4 , T4FREE , TPO , THROIDAB , THYROIDMI No results found for: INR , PT , PROTIMEPOC No results found for: PSA ASA Class: ASA 3 - Patient with moderate systemic disease with functional limitations Emergency: no The risks and benefits of the proposed anesthetic have been discussed with patient. The patient/designee has agreed to TIVA GETA with GA/LMA as a backup. Anesthesia guideline orders initiated. Jared Jaramillo III, MD LATION BOARD HEAD SAW OPERATOR documented in this encounter Plan of Treatment Upcoming Encounters Date Type Department Care Team (Late st Contact Info) Description 04/22/2025 1:30 PM INSULATION BOARD HEAD SAW OPERATOR Office Visit [facility] Nose [facility] Th[facility] Head Neck [facility] [address] [place] [address] Laura Guallpa, MACHINE SETTER AND REPAIRER [address] [place] [address] 07/11/2025 12:45 PM INSULATION BOARD HEAD SAW OPERATOR Office Visit [facility] Endocrinology [facility] [address] [place] [address] Sanket Carlton MD [address] [place] [address] documented as of this encounter Visit Diagnoses Not on filedocumented in this encounter Administered Medications Inactive Administered Medications - up to 3 most recent administrations Medication Order MAR Action Action Date Dose Rate Site ceFAZolin (ANCEF,KEFZOL) vial IV, INTRA-PROCEDURE PRN, Starting on Mon04/11/25 at 1002, Until Mon04/11/25 at 1109, Routine, Anesthesia Intra-op Given 04/11/2025 10:02 AM INSULATION BOARD HEAD SAW OPERATOR 2,000 mg fentaNYL (PF) (SUBLIMAZE) 50 mcg/mL injection IV, INTRA-PROCEDURE PRN, Starting on Mon04/11/25 at 0949, Until Mon04/11/25 at 1109, Routine, Anesthesia Intra-op Given 04/11/2025 10:05 AM INSULATION BOARD HEAD SAW OPERATOR 50 mcg Given 04/11/2025 9:49 AM INSULATION BOARD HEAD SAW OPERATOR 50 mcg lactated ringers infusion IV, at 40 mL/hr, CONTINUOUS, Starting on Mon04/11/25 at 0915, Until Mon04/11/25 at 1625, Routine, Pre-op Restarted 04/11/2025 9:42 AM INSULATION BOARD HEAD SAW OPERATOR New Bag 04/11/2025 9:15 AM INSULATION BOARD HEAD SAW OPERATOR 40 mL/hr lidocaine PF 1% (XYLOCAINE MPF) injection Infiltration, INTRA-PROCEDURE PRN, Starting on Mon04/11/25 at 0949, Until Mon04/11/25 at 1109, Routine, Anesthesia Intra-op Given 04/11/2025 9:49 AM INSULATION BOARD HEAD SAW OPERATOR 3 mL phenylephrine 20 mg in sodium chloride 0.9 % 250 mL infusion IV, INTRA-PROCEDURE CONTINUOUS PRN, Starting on Mon04/11/25 at 1026, Until Mon04/11/25 at 1109, Anesthesia Intra-op New Bag 04/11/2025 10:26 AM INSULATION BOARD HEAD SAW OPERATOR 0.2 mcg/kg/min 16.785 mL/hr propofoL (DIPRIVAN) injection IV, INTRA-PROCEDURE CONTINUOUS PRN, Starting on Mon04/11/25 at 0949, Until Mon04/11/25 at 1109, Anesthesia Intra-op Rate Change 04/11/2025 10:46 AM INSULATION BOARD HEAD SAW OPERATOR 175 mcg/kg/min 117.495 mL/hr Rate Change 04/11/2025 10:05 AM INSULATION BOARD HEAD SAW OPERATOR 225 mcg/kg/min 151.065 mL/hr New Bag 04/11/2025 9:49 AM INSULATION BOARD HEAD SAW OPERATOR 150 mcg/kg/min 100.71 mL /hr propofoL (DIPRIVAN) injection See Admin Instructions, INTRA-PROCEDURE PRN, Starting on Mon04/11/25 at 0949, Until Mon04/11/25 at 1109, Anesthesia Intra-op Given 04/11/2025 9:49 AM INSULATION BOARD HEAD SAW OPERATOR 200 mg succinylcholine (ANECTINE) 20 mg/mL injection IV, INTRA-PROCEDURE PRN, Starting on Mon04/11/25 at 0949, Until Mon04/11/25 at 1109, Routine, Anesthesia Intra-op Given 04/11/2025 9:49 AM INSULATION BOARD HEAD SAW OPERATOR 100 mg documented in this encounter Care Teams Dry Wall Sprayer Relationship Specialty Start Date End Date Nayeli Gonzales MD [address] [place] [id number] PCP - General Family Practice 06/22/10 documented as of this encounter
--- OUTSIDE RECORDS SUMMARY | 2025-04-11 09:55 | XMS_ITS | Encounter Summary ---
Author Organization [facility] Address [address] [place] [id number] Care Team Providers Care Non Linear Editor Name Role Phone Nayeli Gonzales MD Primary Care Provider [phone]- [phone] Reason for Visit * Auth/Cert (Routine) Specialty Diagnoses / Procedures Referred By Subha t Referred To Contact Perioperative Diagnoses Thyroid nodule Procedures IA THYROIDECTOMY TOTAL/COMPLETE THYROIDECTOMY Jimmy Michel MD [address] [place] [address] Phone: tel: fax: [facility] [address] [address] Phone: tel: fax: Referral ID Status Reason Start Date Expiration Date Visits Re quested Visits Authorized [id number] 1 1 Encounter Details Date Type Department Care Team (Late st Contact Info) Description 04/11/2025 9:55 AM SINGLE END SEWER - 04/11/2025 12:05 PM SINGLE END SEWER Surgery [facility] [address] [place] [phone] Jimmy Michel MD [address] [address] THYROIDECTOMY Surgery Details Date/Time Status Location OR Service Patient Class Case Class Case Type Trauma Case? 04/11/2025 9:55 AM Posted [facility] OR 08 Otorhinolaryngology Outpatient Elective No Panel 1 Procedure LRB Anes Op Region Wound Class Comments THYROIDECTOMY Right General Neck Clean-I ARR 0830 RT THYROID 60MIN Surgeon Surgeon Role Service Panel Jimmy Michel MD Primary Otorhinolaryngology 1 documented in this encounter Social History Tobacco [...] on file Legal Sex Female 11:49 PM SINGLE END SEWER Gender Identity Not on file Sexual Orientation Not on file documented as of this encounter Last Filed Vital Signs Vital Sign Reading Time Taken Comments Blood Pressure 127/69 04/11/2025 12:00 PM SINGLE END SEWER Pulse 66 04/11/2025 12:00 PM SINGLE END SEWER Temperature 36.3 C (97.4 F) 04/11/2025 11:44 AM SINGLE END SEWER Respiratory Rate 14 04/11/2025 12:0 0 PM SINGLE END SEWER Oxygen Saturation 97% 04/11/2025 12: 00 PM SINGLE END SEWER Inhaled Oxygen Concentration - - Weight 111.9 kg (246 lb 9.6 oz) 04/11/2025 8:27 AM SINGLE END SEWER Height 170.2 cm (5' 7 ) 04/11/2025 8:27 AM SINGLE END SEWER Body Mass Index 38.62 04/11/2025 8:27 AM SINGLE END SEWER documented in this encounter Discharge Instructions * Discharge Instructions* Betty Sullivan RN - 04/11/2025 11:05 AM SINGLE END SEWER Tylenol 1000mg every 8 hours for pain [...] inhaling material that you may vomit. A PACKAGE REINSPECTOR FROM THE SAME DAY SURGERY DEPARTMENT MAY [...] operate power tools while taking this medication. LE END SEWER LE END SEWER documented in this encounter Medications at Time of Discharge oxyCODONE (ROXICODONE) 5 mg tabletIndication s:Thyroid nodule Take 1 Tablet (5 mg) by mouth every 4 hours as needed for Pain. Max Daily Amount: 30 mg 20 Tablet 04/11/2025 naloxone (NARCAN) 4 mg/spray [place], Non-Aerosol EMERGENCY USE ONLY: Administer 1 spray [...] hours. 03/20/2024 fluticasone propionate (FLONASE) 50 mcg/spray [place], Suspension nasal inhaler Administer in each nostril. [...] aerosol inhaler Take by inhalation. 07/10/2023 cpap medical center director CPAP @ 11 cwp with heated humidifier. [...] with the surgical procedure. Jimmy Michel MD LE END SEWER documented in this encounter OR Notes * [facility]att-OP - Betty Sullivan RN - 04/11/2025 12:37 PM CST Discharge instructions reviewed with patient and weapons mechanic verbalizing understanding. Copy given topatient/weapons mechanic. Patient escorted out with no distress noted. LE END SEWER * Operative Report - Jimmy Michel MD - 04/11/2025 10:59 AM CST Randi Kay CSN: [id number] Date of Service: 04/11/2025 Surgeon: Jimmy Michel [...] performed this surgical procedure. Jimmy Michel MD LE END SEWER documented in this encounter Plan of Treatment Upcoming Encounters Date Type Department Care Team (Late st Contact Info) Description 04/22/2025 1:30 PM SINGLE END SEWER Office Visit [facility] Ear Nose [facility] Throat [place] [facility] [address] [place] [phone] Laura Guallpa FNP [address] [place] [address] 07/11/2025 12:45 PM SINGLE END SEWER Office Visit [facility] Endocrinology [facility] [address] [place] [address] Sanket Carlton MD [address] [place] [address] documented as of this encounter Procedures Procedure Name Priority Date/Time Associated Diagnosis Comments TELEMETRY REPORT 04/15/2025 10:3 1 AM SINGLE END SEWER POC GLUCOSE Routine 04/11/2025 11:13 AM SINGLE END SEWER PATHOLOGY Pathology 04/11/2025 10:35 AM SINGLE END SEWER Thyroid nodule IA THYROIDECTOMY TOTAL/COMPLETE 04/11/2025 9:55 AM SINGLE END SEWER Thyroid nodule documented in this encounter Results * TELEMETRY REPORT (04/15/2025 10:31 AM SINGLE END SEWER) us Provider Scanning ECG ORDERABLES Final Result * (ABNORMAL) POC GLUCOSE (04/11/2025 11:13 AM SINGLE END SEWER) GLUCOSE POC 118(H) 74 - 99 mg/dL 04/11/2025 11:13 AM SINGLE END SEWER [facility] SPECIMEN SOURCE, GLUCOSE POC Capillary 04/11/2025 11:13 AM SINGLE END SEWER [facility] Blood, whole 04/11/2025 11:1 3 AM SINGLE END SEWER 04/11/2025 11:21 AM SINGLE END SEWER us Jimmy Michel MD POINT OF CARE TESTING Final Res ult [facility] CLIA # [id number] [address] [facility] [place] [address] * PATHOLOGY (04/11/2025 10:35 AM SINGLE END SEWER) CASE REPORT Surgical Pathology Report Case: [id number] Authorizing Provider: Jimym Michel MD Collected: 04/11/2025 10:35 AM Ordering Location: [facility] E Received: 04/11/2025 12:[address] Pathologist: Corrine Maria MD Specimens: A) - Thyroid, right B) - Lymph node, central neck 1:37 PM SINGLE END SEWER [facility] FINAL DIAGNOSIS A. Right thyroid, lobectomy - Benign thyroid with follicular nodular disease, 3.5 cm dominant nodule - Normocellular parathyroid gland identified / B. Central neck lymph nodes, dissection - 4 benign lymph nodes (0/4) Corrine Maria MD [id number] 1:37 PM SINGLE END SEWER [facility] at 1337 SINGLE END SEWER GROSS DESCRIPTION A. Received in a container [...] No other masses or lesions are identified. Boiler Out sections are submitted as follows: A1: Mass [...] B1. Grossed by: Ariadne Reyes MS, PA (ASCP)CM 1:37 PM SINGLE END SEWER [facility] OPERATIVE PROCEDURE 1: THYROIDECTOMY 1:37 PM SINGLE END SEWER [facility] CLINICAL INFORMATION right thyroid stitch brower superior pole Thyroid nodule [E04.1] 5 1:37 PM SINGLE END SEWER [facility] COMMENT The [employer] voice-activated dictation system may have been used [...] determined by the [facility] in compliance with CLIA'88 regulations. Some of these tests rely on the use of analyte specific reagents and are subject to specific labeling requirements by the FDA. All controls show appropriate reactivity. This testing was developed by the [facility]. It has not been cleared or approved by the FDA. The FDA has determined that such clearance or approval is not necessary. 5 1:37 PM SINGLE END SEWER [facility] Tissue ENTIRE THYROID GLAND / Unknown Collection / Unknown 04/11/2025 10:35 AM SINGLE END SEWER 04/11/2025 12:32 PM SINGLE END SEWER Comment:right thyroid stitch brower superior pole Tissue specimen (specimen) ENTIRE LYMPH NODE / Unknown 04/11/2025 10:40 AM SINGLE END SEWER 04/11/2025 12:32 PM SINGLE END SEWER Comment:central neck node us Jimmy Michel MD PATHOLOGY/CYTOLOGY ORDERABLES F inal Result [facility] # [id number] [address] [place] [address] documented in this encounter Visit Diagnoses Diagnosis Thyroid nodule Nontoxic uninodular goiter Thyroid nodule Nontoxic uninodular goiter documented in [...] Severe, Routine, PACU Given 04/11/2025 11:27 AM SINGLE END SEWER 50 mcg Given 04/11/2025 11:16 AM SINGLE END SEWER 50 mcg HYDROmorphone (PF) (DILAUDID) injection 0.6 mg 0.6 mg, IV, POST-PROCEDURE Q 5 MINUTES PRN, 5 doses, Starting on Mon04/11/25 at 0935, Until Mon04/11/25 at 1625, Pain, Severe, Routine, PACU lactated ringers infusion IV, at 40 mL/hr, CONTINUOUS, Starting on Mon04/11/25 at 0915, Until Mon04/11/25 at 1625, Routine, Pre-op Restarted 04/11/2025 9:42 AM SINGLE END SEWER New Bag 04/11/2025 9:15 AM SINGLE END SEWER 40 mL/hr lidocaine-EPINEPHrine (XYLOCAINE-EPI) 1 %-1:100,000 injection INTRA-PROCEDURE PRN, Starting on Mon04/11/25 at 1005, Until Mon04/11/25 at 1104, Routine, Intra-op Given 04/11/2025 10:05 AM SINGLE END SEWER 7 mL Oper ative Site naloxone (NARCAN) 0.4 mg/mL injection 0.1-0.4 mg 0.1-0.4 mg, IV, SEE ADMIN INSTRUCTIONS, Starting on Mon04/11/25 at 0935, Until Mon04/11/25 at 1625, Routine, PACU oxyCODONE (ROXICODONE) tablet 5 mg 5 mg, Oral, EVERY 6 HOURS PRN, Starting on Mon04/11/25 at 1212, Until Mon04/11/25 at 1625, Pain (See admin instructions), Routine Given 04/11/2025 12:15 PM SINGLE END SEWER 5 mg prochlorperazine (COMPAZINE) injection 5 mg [...] Recently Administered Medications Times are shown in SINGLE END SEWER. Scheduled Medication Order 04/09/2025 04/10/2025 04/11/2025 naloxone [...] Karli Benoit RN)1127 (Given - Provider: Karli Benoit RN) HYDROmorphone (PF) (DILAUDID) injection 0.6 mg [...] PACU documented in this encounter Care Teams Non Linear Editor Relationship Specialty Start Date End Date Nayeli Gonzales MD [address] [place] [address] PCP - General Family Practice 06/22/10 documented as of this encounter
[2025-04-16 12:19] VITALS: BP 115/60; PULSE 73; RESP 18; TEMP 37.1; O2SAT 99; BMI 38.0
[2025-04-16] MEDS: promethazine 25 mg/mL SDV 1 mL IM (13:10)
[2025-04-16 13:13] VITALS: BP 152/63; PULSE 75; O2SAT 97
--- NOTE | 2025-04-16 13:35 | W.ED.NAVMDI ---
HPI - Nausea/Vomiting/Diarrhea General: Chief complaint: Nausea/Vomiting/Diarrhea Stated complaint: Post Surgery 04/11 can't eat or drink Time Seen by Provider: 04/16/25 12:51 Source: patient Mode of arrival: ambulatory Limitations: no limitations History of Present Illness: Patient is a 65-year-old female presents the emergency department complaining of feeling dehydrated status post partial thyroidectomy on 04/11. Patient states due to enlarged thyroid she had the right thyroid gland as well as parathyroid glands removed on Monday, notes that since then she has had decreased p.o. intake and was told to come to the ED by primary care due to concerns of being dehydrated. She has not felt feverish, she does not feel nauseous but has not had any vomiting. No hemoptysis or hematemesis, no significant weakness but does state that she feels a little dizzy with ambulation. She does not have any chest pain or shortness of breath, no abdominal pain. She states she was not started on any medication status post surgery as she was told that with her thyroid levels remaining normal she would not need medicated. She is nontoxic-appearing at this time, her vitals are stable and she is afebrile. She has no issues or concerns with the surgical incision to her anterior neck, which is well-healing. MD elicited complaint: nausea and other (dehydrated) Onset (ago): day(s) Associated nausea: Yes Associated abdominal pain: No Context: recent surgery/procedure Associated symtoms: Reports dizziness and nausea; Denies chest pain, diaphoresis, dysuria, headache(s) or palpitations Related Data Home Medications ?Medication ?Instructions ?Recorded ?Confirmed prazosin 2 mg capsule 8 mg PO BEDTIME 10/18/21 04/16/25 pregabalin 300 mg capsule (Lyrica) 300 mg PO BID 06/17/22 04/16/25 cyproheptadine 4 mg tablet 4 mg PO BEDTIME 08/11/23 04/16/25 apixaban 5 mg tablet (Eliquis) 5 mg PO BID 07/18/24 01/31/25 omeprazole 20 mg capsule,delayed 20 mg PO BID 07/18/24 04/16/25 release isosorbide dinitrate 30 mg tablet 30 mg PO BID 07/26/24 04/16/25 oxybutynin chloride 5 mg tablet 10 mg PO TID 08/21/24 04/16/25 methocarbamol 750 mg tablet 750 mg PO TID PRN Spasms 10/01/24 04/16/25 prochlorperazine maleate 10 mg 10 mg PO DAILY PRN Nausea 10/01/24 04/16/25 tablet alprazolam 0.5 mg tablet 0.5 mg PO DAILY PRN Anxiety 04/16/25 04/16/25 buspirone 10 mg tablet 10 mg PO BID 04/16/25 04/16/25 calcium 400 mg 1 tab PO TID 04/16/25 04/16/25 (carbonate)-magnesium 167 mg (oxide)-D3 133 unit tablet (Calcium Magnesium plus D) duloxetine 60 mg capsule,delayed 60 mg PO BID 04/16/25 04/16/25 release metoprolol tartrate 25 mg tablet 12.5 mg PO BID 04/16/25 04/16/25 [id number]-[id number] 45 mg-folic 1 cap PO DAILY 04/16/25 04/16/25 acid 800 mcg-vit K 120 mcg capsule (Bariatric Multivitamins) oxycodone 5 mg tablet 5 mg PO Q4H PRN Pain 04/16/25 04/16/25 Previous Rx's ?Medication ?Instructions ?Recorded meclizine 25 mg tablet 25 mg PO QID PRN dizziness #30 tabs 10/24/24 amlodipine 5 mg tablet 5 mg PO DAILY PRN chest pain #15 01/01/25 tabs atorvastatin 40 mg tablet (Lipitor) 40 mg PO QPM #90 tabs 01/01/25 Allergies Allergy/AdvReac Type Severity Reaction Status Date / Time ondansetron (From Zofran) Allergy Severe Dystonia Verified 01/31/25 08:10 bee venom protein (honey bee) Allergy anaphylaxis Verified 01/31/25 08:10 Influenza Virus Vaccines Allergy anaphylacti Verified 01/31/25 08:10 c mushroom Allergy anaphylaxis Verified 01/31/25 08:10 tetracycline Allergy Rash, Verified 01/31/25 08:10 shortness of breath trazodone Allergy Rash, Verified 01/31/25 08:10 trouble breathing vaccines Allergy ALGY-Anaphy Uncoded 01/31/25 08:10 laxis Review of Systems General: Reports: 10 or more systems reviewed and unremarkable except in HPI and below Const: Reports: change in appetite and other ( feels dehydrated ); Denies: fever(s), chills, change in weight or diaphoresis ENMT: Denies: throat pain or hoarseness Card: Denies: chest pain, palpitations or lightheadedness Resp: Denies: dyspnea, productive cough or wheezing GI: Reports: nausea and other; Denies: abdominal pain, vomiting or diarrhea : Denies: flank pain, difficulty voiding, dysuria, urinary frequency or urinary urgency Musc: Denies: neck pain or back pain Skin/Breast: Denies: rash or new lesions Neuro: Reports: dizziness; Denies: headache(s) PFSH ED PFSH: Medical History Tear of medial meniscus of left knee, current Renal failure Left knee pain No pertinent past medical history NegHx: thyroid, dvt/pe PCP: Tania Gastrojorgito Prinzmetal angina Metatarsalgia of both feet Post traumatic stress disorder (PTSD) Hyperlipidemia Coronary 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 Takes Lyrica for the neuropathy. Does take hydrocodone as needed for pain. GERD (gastroesophageal reflux disease) Controlled on medication Anxiety and depression Diagnosed in the and controlled well on medication at this time managed by primary care provider nurse jami Taveras. Primary hypertension Diagnosed in 2017 managed by primary care provider nurse jami Taveras Surgical History H/O esophagogastroduodenoscopy (09/01/21) History of coronary angiogram 06/2021 and 05/2022 History of surgery neck lipoma removal- S/P appendectomy 1980-right lower quadrant incision, right ovary and appendix were removed. Hx of breast surgery ductectomy from the left breast done in her late 30s S/P tubal ligation 1982-immediately . History of back surgery Pain pump insertion, removed in 2014 S/P left knee arthroscopy Hx of oophorectomy 1980---right lower quadrant incision-right ovary and appendix were removed when she presented with pain to the emergency room S/P hysterectomy 1985--vaginal hysterectomy with left oophorectomy performed for a uterine mass she was told that there was no cancer but there were some abnormal cells and it was recommended that she have chemotherapy for 6 weeks however she did only 2 weeks and then did not finish the rest of treatment. S/P tonsillectomy and adenoidectomy As a child S/P cholecystectomy Laparoscopic procedure performed in 1992 Family History Mother Heart disease Hypertension Ovarian cancer Diagnosed at age 34 Suicide Thyroid disease Uterine cancer Diagnosed at age 34, unsure of origin Father Heart disease Thyroid disease Sister Thyroid disease Family/Other Thyroid disease [place], granddaughter Other Diabetes Social History Smoking and tobacco/nicotine status: former use of tobacco/nicotine Quit status (tobacco/nicotine): has quit using Second hand smoke exposure: No Alcohol intake: former Substance/Drug Use: never Adopted: No Caregiver/support person: No Lives independently: Yes Housing: House Marital status: Number of children: 2 Highest education level completed: Associate Degree: Occupational, Technical, Vocational Program service: Yes Pets and animals: Yes Sexually active: Yes Do you think of yourself as: Straight/Heterosexual Gricel/Orthodox: Temple Special gricel needs: No Agree to transfusion: No Physical Exam Const: COMMON NORMALS: no acute distress, patient oriented x3, no limitations, healthy appearing, alert and well nourished GENERAL APPEARANCE: cooperative and comfortable ORIENTATION/CONSCIOUSNESS: Yes awake OTHER: nontoxic Neck/C-Spine: OTHER: Anterior surgical incision, appearing well-healing with no fluctuance, duration, or signs of cellulitis Resp: COMMON NORMALS: normal respiratory effort, No retractions, No use of accessory muscles and clear to auscultation bilaterally AUSCULTATION: clear to auscultation bilaterally, no crackles, no rales, no rhonchi and no wheezes Cardio: COMMON NORMALS: regular rate, regular rhythm, No gallops present (Cardio), No clicks present (Cardio), No murmurs present (Cardio) and No rub (Cardio) RATE: regular rate RHYTHM: regular rhythm GI: COMMON NORMALS: Soft to palpation, non-tender, No hepatosplenomegaly present and no masses INSPECTION: Yes central obesity AUSCULTATION: Yes normoactive bowel sounds PALPATION: Yes Soft to palpation, No Guarding due to palpation present (GI), No Rigid due to palpation and Yes No hepatosplenomegaly present RECTAL EXAM: deferred Extremity: COMMON NORMALS: normal to inspection and full ROM Neuro: COMMON NORMALS: patient oriented x3, moves all extremities, no focal motor deficits and no sensory deficits noted SENSORIUM/ORIENTATION: Yes alert Psych: COMMON NORMALS: mental status grossly normal, cooperative and speech normal SPEECH: Yes normal speech Skin: COMMON NORMALS: no rashes or lesions noted GENERAL SKIN EXAM: no rashes or lesions noted Course Vital Signs: Vital signs: Vital Signs Temperature 98.7 F 04/16/25 12:19 Pulse Rate 64 04/16/25 14:30 Respiratory Rate 18 04/16/25 12:19 Blood Pressure 137/76 04/16/25 14:30 Pulse Oximetry 97 04/16/25 14:30 Oxygen Delivery Me thod Room Air 04/16/25 14:30 MDM - Nausea/Vomiting/Diarrhea Medical Decision Making Patient presented with reports of decreased p.o. intake that has resulted in what appears to be a dehydration, status post thyroidectomy last Monday. She had no vomiting here, her nausea was improved with Phenergan, and after liter of fluids she states that she feels quite a bit better. Her lab work does indicate that she was mildly dehydrated, however there is no indication of any kidney injury. Thyroid was also checked due to her procedure which appears to be within normal range. In addition, the surgical incision appeared to be well-healing and there does not appear to be any infectious process causing her symptoms. With her quick improvement, and overall normal workup, and her passing a p.o. challenge at bedside, this patient is stable for discharge home, and patient agrees at this time. She is given return precautions of which she verbalizes understanding. Lab Data 04/16/25 12:59 04/16/25 12:59 Laboratory Results WBC 5.79 10^3/uL (3.29-11.43) 04/16/25 12:59 RBC 4.53 10^6/uL (3.85-5.65) 04/16/25 12:59 Hgb 13.60 g/dL (11.27-16.99) 04/16/25 12:59 Hct 42.1 % (36-47) 04/16/25 12:59 MCV 92.9 fl (85-98) 04/16/25 12:59 MCH 30.0 pg (27-33) 04/16/25 12:59 MCHC 32.3 g/dL (30-55) 04/16/25 12:59 RDW 13.2 % (12.1-15.1) 04/16/25 12:59 Plt Count 139 10^3/cmm (157-399) L 04/16/25 12:59 MPV 12.6 fL (7.4-10.4) H 04/16/25 12:59 Neut % (Auto) 58.2 % 04/16/25 12:59 Lymph % (Auto) 26.9 % 04/16/25 12:59 Sanborn % (Auto) 10.5 % 04/16/25 12:59 Eos % (Auto) 2.8 % 04/16/25 12:59 Baso % (Auto) 0.9 % 04/16/25 12:59 Neut # (Auto) 3.37 10^3/uL (1.8-7.7) 04/16/25 12:59 Lymph # (Auto) 1.6 10^3/uL (0.8-4.8) 04/16/25 12:59 Sanborn # (Auto) 0.6 10^3/uL (0.2-0.9) 04/16/25 12:59 Eos # (Auto) 0.2 10^3/uL (0.0-0.8) 04/16/25 12:59 Baso # (Auto) 0.1 10^3/uL (0.0-0.1) 04/16/25 12:59 Nucleated RBC % (auto) 0 % 04/16/25 12:59 Nucleated RBCs # 0.0 /100WBC 04/16/25 12:59 Sodium 145 mmol/L (136-145) 04/16/25 12:59 Potassium 3.3 mmol/L (3.5-5.1) L 04/16/25 12:59 Chloride 113 mmol/L (98-107) H 04/16/25 12:59 Carbon Dioxide 24 mmol/L (22-29) 04/16/25 12:59 Anion Gap 11.3 (5-19) 04/16/25 12:59 BUN 15 mg/dL (8-23) 04/16/25 12:59 Creatinine 0.8 mg/dL (0.5-0.9) 04/16/25 12:59 GFR Calculation 72.4 mL/min (90-130) L 04/16/25 12:59 Glucose 200 mg/dL (65-115) H 04/16/25 12:59 Calculated Osmolality 306 mOsm/kg (285-295) H 04/16/25 12:59 Calcium 8.2 mg/dL (8.5-10.5) L 04/16/25 12:59 Total Bilirubin 0.3 mg/dL (0.15-1.2) 04/16/25 12:59 AST 33 U/L (0-32) H 04/16/25 12:59 ALT 26 U/L (0-33) 04/16/25 12:59 Alkaline Phosphatase 143 U/L (35-105) H 04/16/25 12:59 Total Protein 6.2 g/dL (6.6-8.7) L 04/16/25 12:59 Albumin 3.5 g/dL (3.5-5.2) 04/16/25 12:59 Globulin 2.7 g/dL (1.3-4.6) 04/16/25 12:59 Lipase 22 U/L (13-60) 04/16/25 12:59 TSH 2.22 uIU/mL (0.27-4.20) 04/16/25 12:59 No radiology studies performed this visit Discharge Plan Discharge Patient Disposition: Home Clinical Impression: Dehydration Condition: Stable Prescriptions: No Action prazosin 2 mg capsule 8 mg PO BEDTIME cyproheptadine 4 mg tablet 4 mg PO BEDTIME isosorbide dinitrate 30 mg Tablet 30 mg PO BID Rx Instructions: allow nitrate-free interval of 12-14 hrs per 24-hr period pregabalin [Lyrica] 300 mg Capsule 300 mg PO BID omeprazole 20 mg capsule,delayed release(DR/EC) 20 mg PO BID Eliquis 5 mg Tablet 5 mg PO BID oxybutynin chloride 5 mg tablet 10 mg PO TID prochlorperazine maleate 10 mg tablet 10 mg PO DAILY PRN (Reason: Nausea) methocarbamol 750 mg tablet 750 mg PO TID PRN (Reason: Spasms) meclizine 25 mg tablet 25 mg PO QID PRN (Reason: dizziness) Qty: 30 0RF amlodipine 5 mg tablet 5 mg PO DAILY PRN (Reason: chest pain) Qty: 15 0RF Rx Instructions: Do not take if BP <110/60 or lightheaded atorvastatin [Lipitor] 40 mg tablet 40 mg PO QPM Qty: 90 0RF alprazolam 0.5 mg Tablet 0.5 mg PO DAILY PRN (Reason: Anxiety) buspirone 10 mg Tablet 10 mg PO BID oxycodone 5 mg tablet 5 mg PO Q4H PRN (Reason: Pain) metoprolol tartrate 25 mg Tablet 12.5 mg PO BID duloxetine 60 mg Capsule,Delayed Release(Dr/Ec) 60 mg PO BID Calcium Magnesium plus D 400-167-133 mg-mg-unit Tablet 1 tab PO TID Bariatric Multivitamins 45 mg iron- 800 mcg-120 mcg Capsule 1 cap PO DAILY Discharge Orders: Discharge ED (Routine); Ordered 04/16/25 Ordered By: Jeffy Newton Referrals: Anju Taveras FNP [Primary Care Provider, Nurse Practitioner] Patient Instructions: Patient Portal & Hansa Instructions Activity Restrictions/Additional Instructions: Thyroidectomy Discharge Instructions You are being discharged after your thyroid surgery and treatment for dehydration. Please follow these instructions to help ensure a safe recovery: - Hydration and Nutrition: Continue drinking fluids regularly throughout the day. Aim for water, clear juices, or oral rehydration solutions. Eat a balanced diet as tolerated. If you feel nauseated or unable to keep fluids down, contact your healthcare provider. - Activity: Rest as needed, but gentle walking is encouraged. Avoid strenuous activity, heavy lifting, or vigorous exercise for at least one week or as directed by your surgeon. - Wound Care: Keep your incision clean and dry. You may shower unless told otherwise, but avoid soaking the wound. Watch for signs of infection such as redness, swelling, warmth, or drainage. - Warning Signs ? Call your doctor or go to the emergency room if you notice: - Neck swelling, tightness, or difficulty breathing (could be a sign of bleeding or hematoma). - Tingling or numbness around your lips, fingers, or toes, muscle cramps, or twitching (could be a sign of low calcium). - Persistent hoarseness, voice changes, or trouble swallowing. - Fever over 101?F, chills, or increasing pain at the incision site. - Medications: Take all prescribed medications as directed. If you were started on calcium or vitamin D (calcitriol), continue as instructed. If you were started on thyroid hormone (levothyroxine), take it every morning on an empty stomach. Do not stop or change your medications without talking to your doctor. - Follow-Up: Attend your scheduled follow-up appointment with your surgeon or stereo equipment installer, usually within 1?2 weeks. Blood tests may be needed to check calcium and thyroid levels. - Voice and Swallowing: Mild hoarseness or changes in voice are common and usually improve over time. If symptoms persist or worsen, notify your provider. - Emergency Plan: If you live far from the hospital, ensure you know how to reach emergency services quickly if needed. If you have any questions or concerns, do not hesitate to contact your healthcare team. Print Language: Montenegrin Coding Level of Care Code ED Police Magistrate for Stefany Morales
[2025-04-16 13:41] LABS: Hematocrit 42.1 % (36-47); Hemoglobin 13.60 g/dL (11.27-16.99); Mean Corpuscular HGB Conc 32.3 g/dL (30-55); Mean Corpuscular Hemoglobin 30.0 pg (27-33); Mean Corpuscular Volume 92.9 fl (85-98); Nucleated Red Blood Cells % 0 %; Platelet Count 139 10^3/cmm (157-399); Red Blood Count 4.53 10^6/uL (3.85-5.65); White Blood Count 5.79 10^3/uL (3.29-11.43)
[2025-04-16 13:52] LABS: Alanine Aminotransferase 26 U/L (0-33); Albumin Level 3.5 g/dL (3.5-5.2); Alkaline Phosphatase 143 U/L (35-105); Anion Gap 11.3 (5-19); Aspartate Amino Transferase 33 U/L (0-32); Blood Urea Nitrogen 15 mg/dL (8-23); Calcium 8.2 mg/dL (8.5-10.5); Carbon Dioxide 24 mmol/L (22-29); Chloride 113 mmol/L (98-107); Globulin 2.7 g/dL (1.3-4.6); Glucose 200 mg/dL (65-115); Lipase 22 U/L (13-60); Osmolality Calculated 306 mOsm/kg (285-295); Potassium 3.3 mmol/L (3.5-5.1); Sodium 145 mmol/L (136-145); Total Protein 6.2 g/dL (6.6-8.7)
[2025-04-16 14:05] VITALS: BP 130/74; PULSE 65; O2SAT 98
[2025-04-16 14:30] VITALS: BP 137/76; PULSE 64; O2SAT 97
[2025-04-16 14:31] LABS: Thyroid Stimulating Hormone 2.22 uIU/mL (0.27-4.20)
--- OUTSIDE RECORDS SUMMARY | 2025-04-16 15:11 | XMS_ITS | Encounter Summary ---
Author Organization [facility] Address [address] [place] [address] Care Team Providers Care Supervisor Landscape Name Role Phone Nayeli Gonzales MD Primary Care Provider [phone]- [phone] Encounter Details Date Type Department Care Team (Latest Contact Info) Description 11/22/1999 Outpatient Historical [facility] Jorge L Kam Jr., MD [address] [place] [id number] Sprain of ankle, unspecified site (Primary Dx) Social History Tobacco Use Types Packs/Day Years Used Date Smoking Tobacco: Never Assessed Comments Unknown Sex and Gender Information Value Date Recorded Sex Assigned at Not on file 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
--- OUTSIDE RECORDS SUMMARY | 2025-04-16 15:11 | XMS_ITS | Encounter Summary ---
Author Organization [facility] Address [address] [place] [address] Care Team Providers Care Vice President Client Services Name Role Phone Nayeli Gonzales MD Primary Care Provider [phone]- [phone] Encounter Details Date Type Department Care Team (Latest Contact Info) Description 06/03/[address] [facility] 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
--- OUTSIDE RECORDS SUMMARY | 2025-04-16 15:11 | XMS_ITS | Encounter Summary ---
Author Organization [facility] Address [address] [place] [address] Care Team Providers Care Slip Laster Name Role Phone Nayeli Gonzales MD Primary Care Provider [phone]- [phone] Encounter Details Date Type Department Care Team (Latest Contact Info) Description 09/24/1999 Outpatient Historical [facility] Josias Lacy NO ADDRESS ON FILE Conjunctivitis unspecified (Primary Dx) Social History Tobacco Use Types Packs/Day Years Used Date Smoking Tobacco: Never Assessed Comments Unknown Sex and Gender Information Value Date Recorded Sex Assigned at Not on file 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
--- OUTSIDE RECORDS SUMMARY | 2025-04-16 15:11 | XMS_ITS | Encounter Summary ---
Author Organization [facility] Address [address] [place] [address] Care Team Providers Care Tier Over Name Role Phone Nayeli Gonzales MD Primary Care Provider [phone]- [phone] Encounter Details Date Type Department Care Team (Latest Contact Info) Description 10/07/1998 Outpatient Historical [facility] Josias Lacy NO ADDRESS ON FILE Unspecified disorder of skin and subcutaneous tissue (Primary Dx) Social History Tobacco Use Types Packs/Day Years Used Date Smoking Tobacco: Never Assessed Comments Unknown Sex and Gender Information Value Date Recorded Sex Assigned at Not on file 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
--- OUTSIDE RECORDS SUMMARY | 2025-04-16 15:11 | XMS_ITS | Patient Health Record ---
Author Organization [facility] Address [address] [place] [address] Care Team Providers Care Back Winder Name Role Phone TaverasAnju MCGILL Primary Care Provid er Unavailable Toshia Reyes Unavailable [phone] Devin Gonzalez Unavailable [phone] Melvina York Unavailable [phone] Karen Rivera Unavailable [phone] Allergies Allergen (clinical drug ingredient) Drug/Non Drug Allergy documented on EMR Reaction Allergy Type Onset Date Status trazodone traZODone HCl anaphylaxis Drug Allergy A ctive Zofran Unknown Drug Allergy Active Flu Virus Vaccine Unknown Drug Allergy Active tetracycline Tetracycline anaphylaxis Drug Allergy Active Results Component Value Reference Range Flag Notes Tox Results Reviewed date:11/12/2024 02:53:15 PM Interpretation: Performing Lab: Notes/Report: Schedule Confirmation Reviewed date:04/10/2025 10:34:45 AM Interpretation: Performing Lab: Notes/Report: MRI Thoracic Spine w/o Cont Schedule Confirmation Reviewed date:04/10/2025 10:34:45 AM Interpretation: Performing Lab: Notes/Report: MRI Lumbar Spine w/o Cont Schedule Confirmation Reviewed date:04/10/2025 10:34:45 AM Interpretation: Performing Lab: Notes/Report: MRI Lumbar Spine w/o Cont [facility] MRI Thoracic Spine w/o C [id number] Reviewed date:11/04/2024 10:40:41 AM Interpretation: Performing Lab: Notes/Report: See Below For Report MRI Thoracic Spine w/o Cont Loreta Weber 10/10/2024 01:00:41 PM CDT > [facility] Auth Dates: 09/20/2024 to 04/13/2025 Read See Below For Report [facility] MRI Lumbar Spine w/o Con [id number] Reviewed date:11/04/2024 10:40:34 AM Interpretation: Performing Lab: Notes/Report: See Below For Report Technique: Sagittal and axial T1 and T2 and sagittal STIR images of Loreta Weber 10/10/2024 12:51:11 PM CDT > [facility] Auth Dates: 09/20/2024 to 04/13/2025 Read See Below For Report Schedule Confirmation Reviewed date:04/10/2025 10:34:45 AM Interpretation: Performing Lab: Notes/Report: MRI Thoracic Spine w/o Cont Urine Confirmation Panel (in strument) - 11332 Reviewed date:11/12/2024 02:41:23 PM Interpretation: Performing Lab: [...] the U.S. Food and Drug Administration. Pregabalin >76610 <225 ng/mL > This test was developed [...] by the U.S. Food and Drug Administration. Urine Drug Screen (cup read) - 15156 Reviewed date:11/06/2024 03:29:19 PM Interpretation: Performing Lab: Notes/Report: AMP - SONAL - BUP - BZO - MDMA - OPI - PCP - OXY - MTD - MAMP - MRI Thoracic Spine w/o Cont- 07347 Reviewed date:01/06/2025 01:08:31 PM Interpretation: Performing Lab: Notes/Report: [id number] MRI Lumbar Spine w/o Cont-[id number] Reviewed date:01/06/2025 01:08:25 PM Interpretation: Performing Lab: Notes/Report: [id number] Reason For Referral No Information Medications Medication SIG (Take, Route, Frequency, Duration) Notes Start Date End Date Status BuSpar Active PriLOSEC 10 MG Packet 1 packet 1/2 to 1 hour before a meal mixed with 15 mL of water Orally Once a day Active Tylenol 325 MG Tablet 1 tablet as needed Orally every 6 hrs Active Lyrica 300 MG Capsule 1 capsule Orally twice a day Active Prazosin HCl 5 MG Capsule 1 capsule at bedtime Orally Once a day Active CeleXA 10 MG Tablet 1 tablet Orally Once a day Active HYDROcodone-Acetaminoph en 5-325 MG Tablet 1 tablet as needed Orally every 12 hrs; Duration: 30 days As needed Not to exceed 1 per day Fill on 04/04/2025 04/04/2025 05/04/2025 Active Cyproheptadine HCl 4 MG Tablet 1 tablet Orally Twice a day Active Social History Tobacco Use: Social History [...] Status Risk Notes Problem Chronic pain syndrome (535361734) Chronic pain syndrome (G89.4) Active confirmed Problem Thoracic spondylosis without myelopathy (914365084) Other spondylosis, thoracic region (M47.894) Active confirmed Problem Neurogenic claudication (640386337) Spinal stenosis of lumbar region with neurogenic claudication (M48.062) Active confirmed Problem Lumbar spondylosis (851610137) Lumbar spondylosis (M47.816) Active confirmed Problem Obesity (765893448) Obesity (E66.9) Active confirmed Problem Solitary sacroiliitis (283426362) Sacroiliac inflammation (M46.1) Active confirmed Problem Abnormal gait (23016293) Abnormality of gait and mobility (R26.9) Active confirmed Vital Signs Height-cm 170.18 cm 04/04/2025 Weight-kg 113.4 kg 04/04/2025 Height 67 in 04/04/2025 Weight 250 lbs 04/04/2025 BMI 39.15 kg/m2 04/04/2025 Procedures Procedure Date Ordered Date Performed Result Body Sit e Epidural, Lumbar/Sacral (Cau tripp), w/ imaging guidance - 54676 12/10/2024 12/10/202412-10 Inj. SI Joint w/ imaging alejandro dance (CT or fluoroscopy) - 86247 01/21/2025 01/21/2025 08- Encounters Encounter Location Date Provider Diagnosis Count Includes [facility] [address] [address] 04/04/2025 Toshia Reyes Chronic pain syndrome G89.4 ; Lumbar spondylosis M47.816 ; Other spondylosis, thoracic region M47.894 ; Sacroiliac inflammation M46.1 ; Spinal stenosis of lumbar region with neurogenic claudication M48.062 ; intermediate designer (current) use of opiate analgesic Z79.891 ; Abnormality of gait and mobility R26.9 and Obesity E66.9 Count Includes [facility] [address] [address] 01/08/2025 Devin Gonzalez Chronic pain syndrome G89.4 ; Lumbar spondylosis M47.816 ; Other spondylosis, thoracic region M47.894 ; Sacroiliac inflammation M46.1 ; Spinal stenosis of lumbar region with neurogenic claudication M48.062 ; Abnormality of gait and mobility R26.9 ; Obesity E66.9 and intermediate designer (current) use of opiate analgesic Z79.891 Count Includes [facility] [address] [address] 12/10/2024 Devin Gonzalez Spinal stenosis of lumbar region with neurogenic claudication M48.062 Count Includes [facility] [address] [address] 11/06/2024 Devin Gonzalez Chronic pain syndrome G89.4 ; Lumbar spondylosis M47.816 ; Abnormality of gait and mobility R26.9 ; Other spondylosis, thoracic region M47.894 ; Spinal stenosis of lumbar region with neurogenic claudication M48.062 ; Obesity E66.9 and custodial (current) use of opiate analgesic Z79.891 Count Includes [facility] [address] [address] 10/09/2024 Devin Gonzalez Chronic pain syndrome G89.4 ; Lumbar spondylosis M47.816 ; Abnormality of gait and mobility R26.9 ; Other spondylosis, thoracic region M47.894 ; Obesity E66.9 and intermediate designer (current) use of opiate analgesic Z79.891 Count Includes [facility] [address] [facility] [place] [address] 01/21/2025 Devin Gonzalez Sacroiliac inflammation M46.1 Count Includes [facility] [address] [facility] [place] [address] 01/09/2025 Devin Gonzalez Lumbar spondylosis M47.816 Count Includes [facility] [address] [facility] [place] [address] 09/25/2024 Melvina acuna Count Includes [facility] [place] [address] [place] [place] [address] 04/04/2025 Devin Gonzalez Lumbar spondylosis M47.816 Assessments Encounter Date Diagnosis (ICD Code) Assessment [...] to abide by our urine testing policy. 12/10/2024 Spinal stenosis of lumbar region with neurogenic claudication (ICD-10 - M48.062) 01/08/2025 Chronic pain syndrome (ICD-10 - G89.4) I had a nice visit with the patient today regarding her chronic pain issues. She did very well with the LESI as far as some alleviation of the right side radicular symptoms; she still has some persistent left side lumbosacral pain. Upon examination, the worst of it was localized to her left SI joint. She would be interested in an SI joint injection. We will get that scheduled for her. Another prescription was provided for the hydrocodone that she uses infrequently. We will f/u thereafter and proceed accordingly. 11/06/2024 Lumbar spondylosis (ICD-10 - M47.816) 01/08/2025 Lumbar spondylosis (ICD-10 - M47.816) 01/09/2025 Lumbar spondylosis (ICD-10 - M47.816) 01/21/2025 Sacroiliac inflammation (ICD-10 - M46.1) 04/04/2025 Chronic pain syndrome (ICD-10 - G89.4) I had a nice discussion with the patient today regarding her chronic pain complaints. She continues with mid back and lower back pain. She states her left SI joint injection helped relieve her pain 95% and she is functioning much better overall. However, she has been having some pain on the right side now. She is very tender over her right SI joint. After discussion she would like to proceed with a right SI joint injection. She doing well on her current medication regimen and continues to utilize it very sparingly. She has not filled her prescription since December. I did discuss lifestyle modifications as well as a bowel regimen. She denies any changes in her health since we last seen her any untoward side effects of the medication. She will continue her medication at present level and return to clinic after procedure to monitor for treatment effectiveness and compliance. The patient continues with chronic pain requiring treatment to help restore function and improve quality of life. Risks of opioid therapy as well as interaction of opioids with alcohol, illicit drugs, muscle relaxers, and other sedative medications are reviewed briefly with patient again today. The patient has trialed all other reasonable treatment options and uses the medication to alleviate pain in order to remain active and rest with less pain. No clinically relevant medication side effects are noted. 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 Patient is advised that best long-term goals include increased activity, core strengthening, proper weight management, coping strategies, avoidance of painful triggers, and targeted interventional therapy. We will see the patient for routine follow up in accordance with all clinic policies. We did remind patient today of current guidelines to decrease opioid when possible. We will continue to stress nonopioid treatment. RECOMMEND URINE TESTING TODAY Urine drug screening [...] to abide by our urine testing policy. 04/04/2025 Lumbar spondylosis (ICD-10 - M47.816) 04/04/2025 Lumbar spondylosis (ICD-10 - M47.816) 04/04/2025 Other spondylosis, thoracic region (ICD-10 - M47.894) 11/06/2024 Abnormality of gait and mobility (ICD-10 - R26.9) 01/08/2025 Other spondylosis, thoracic region (ICD-10 - M47.894) 10/09/2024 Abnormality of gait and mobility (ICD-10 - R26.9) 11/06/2024 Other spondylosis, thoracic region (ICD-10 - M47.894) 10/09/2024 Other spondylosis, thoracic region (ICD-10 - M47.894) 01/08/2025 Sacroiliac inflammation (ICD-10 - M46.1) 04/04/2025 Sacroiliac inflammation (ICD-10 - M46.1) RECOMMEND SI JOINT INJECTION The patient has failed conservative treatment of drug therapy, activity modifications, and physical therapy, and 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 Sacroiliac joint dysfunction is estimated to affect between 15-30% of patients. A sacroiliac intraarticular injection is being requested not only as a therapeutic intervention but also to confirm the diagnosis. The patient will undergo a sacroiliac joint intraarticular injection under fluoroscopy then be seen for follow-up reevaluation. The procedure and risks were discussed with [...] the procedure and all questions were answered. 04/04/2025 Spinal stenosis of lumbar region with neurogenic claudication (ICD-10 - M48.062) 10/09/2024 Obesity (ICD-10 - E66.9) 11/06/2024 Spinal [...] the procedure and all questions were answered. 01/08/2025 Spinal stenosis of lumbar region with neurogenic claudication (ICD-10 - M48.062) 11/06/2024 Obesity (ICD-10 - E66.9) 10/09/2024 intermediate designer (current) use of opiate analgesic (ICD-10 - Z79.891) 04/04/2025 intermediate designer (current) use of opiate analgesic (ICD-10 - Z79.891) 01/08/2025 Abnormality of gait and mobility (ICD-10 - R26.9) 01/08/2025 Obesity (ICD-10 - E66.9) 11/06/2024 custodial (current) use of opiate analgesic (ICD-10 - [...] to abide by our urine testing policy. 04/04/2025 Abnormality of gait and mobility (ICD-10 - R26.9) 04/04/2025 Obesity (ICD-10 - E66.9) 01/08/2025 custodial (current) use of opiate analgesic (ICD-10 - Z79.891) 10/09/2024 Other IMadie NCMA, am scribing for Dr. Devin Gonzalez. I, Dr. Devin Gonzalez, personally performed the services described in this documentation, as scribed by ERIKA Rayo , and it is both accurate and complete. 11/06/2024 Other Madie Shannon NCMA, am scribing for Dr. Devin Gonzalez. I, Dr. Devin Gonzalez, personally performed the services described in this documentation, as scribed by ERIKA Rayo, and it is both accurate and complete. 01/08/2025 Other Bekah Shannon am scribing for Dr. Devin Gonzalez. I, Dr. Devin Gonzalez, personally performed the services described in this documentation, as scribed by Bekah Plata, and it is both accurate and complete. Plan Of Treatment Pending Test Test Name Order Date IPMA Saliva Drug Screen 04/04/2025 Future Test Test Name Order Date Inj. SI Joint w/ imaging guidance (CT or fluoroscopy) - [id number] 04/07/2025 Insurance Providers Payer Name Payer Address Payer Phone Subscriber Number Group Number Insured Name Patient Relationship to Insured Coverage Start Date Coverage End Date [employer] [address] [place] [phone] [id number] Randi Kay Self - patient is the insured Medical (General) History Surgical History Surgery Date(Month/Year) Pain pump [phone] left knee arthroscopy appendectomy hysterectomy
--- OUTSIDE RECORDS SUMMARY | 2025-04-16 15:11 | XMS_ITS | Clinical Summary ---
Author Organization [facility] Address [address] [place] [address] Care Team Providers Care Content Specialist Name Role Phone Nayeli Gonzales MD Primary Care Provider [phone] Allergies Active Allergy Reactions Criticality Noted Date [...] on file Legal Sex Female 3:58 AM GUN NUMBER Gender Identity Not on file Sexual Orientation Not on file Last Filed Vital Signs Vital Sign Reading Time Taken Comments Blood Pressure 124/82 06/25/2010 1:14 PM GUN NUMBER Pulse 62 06/25/2010 1:14 PM GUN NUMBER Temperature 36.6 C (97.9 F) 08/23/2010 1:13 PM CDT Respiratory Rate 16 06/25/2010 1:14 PM GUN NUMBER Oxygen Saturation 97% 06/25/2010 1:14 PM GUN NUMBER Inhaled Oxygen Concentration - - Weight 122 [...] (1 - 1-dose 75+ series) [id number] Insurance [facility] Care Teams Content Specialist Relationship Specialty Start Date End Date Nayeli Gonzales MD [address] [place] [address] PCP - General Family Practice 06/22/10
--- OUTSIDE RECORDS SUMMARY | 2025-04-16 15:11 | XMS_ITS | Encounter Summary ---
Author Organization [facility] Address [address] [place] [address] Care Team Providers Care Structural Steel Worker Name Role Phone Nayeli Gonzales MD Primary Care Provider [phone]- [phone] Encounter Details Date Type Department Care Team (Latest Contact Info) Description 03/23/1998 Outpatient Historical [facility] Grzegorz Douglas MD [address] [phone] Other postprocedural status(V45.89) (Primary Dx) Social History Tobacco Use Types Packs/Day Years Used Date Smoking Tobacco: Never Assessed Comments Unknown Sex and Gender Information Value Date Recorded Sex Assigned at Not on file Legal Sex 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
--- OUTSIDE RECORDS SUMMARY | 2025-04-16 15:11 | XMS_ITS | Clinical Summary ---
Author Organization [facility] Address [address] Agustin: [place] [address] Care Team Providers Care Sourcing Assistant Name Role Phone Nayeli Gonzales MD Primary Care Provider +1- [phone] Allergies Active Allergy Reactions Criticality Noted Date Comments Mushroom Anaphylaxis High 10/04/2019 Ondansetron Anaphylaxis,Seizure, Oth er (See Comments),Unknown High 07/13/2012 Oxycodone-Aspirin Rash Low 03/18/2025 Tetracycline Rash,Swelling High 08/23/2010 Trouble swallowing Trazodone Other (See Comments) High 08/23/2010 paralysis Venlafaxine Rash Low 03/18/2025 Venom-Honey Bee Anaphylaxis High 11/12/1999 Medications cpap 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 [...] download feature and mask fitting. 1 Each 03/16/20 21 Active spironolactone (ALDACTONE) 25 mg tablet Take 25 mg by mouth 2 times daily. Active prochlorperazi ne maleate (COMPAZINE) 10 mg tablet Take 10 mg by mouth every 8 hours. 03/20/20 24 Active pregabalin (LYRICA) 300 mg Capsule Take 300 mg by mouth every 12 hours. 06/13/19 22 Active prazosin (MINIPRESS) 2 mg capsule Take 2 mg by mouth daily at bedtime. Takes 8mg daily pm Active oxyBUTYnin (DITROPAN XL) 15 mg Extended Release 24 hour tablet Take 30 mg by mouth. 02/21/20 Active omeprazole (PriLOSEC) 40 mg Capsule, Delayed Release(E.C.) Take 40 mg by mouth 2 times daily. 11/15/19 Active nitroglycerin (NITRO-TIME) 6.5 mg Extended Release capsule Take 6.5 mg by mouth every 12 hours. 03/20/20 24 Active fluticasone propionate (FLONASE) 50 mcg/spray Pryor, Suspension nasal inhaler Administer in each nostril. 07/10/19 24 Active DULoxetine (CYMBALTA) 60 mg Capsule, Delayed Release(E.C.) Take 60 mg by mouth. 09/29/19 24 Active glucose 4 gram Tablet, Chewable CHEW AND SWALLOW FIVE TABLETS BY MOUTH NEEDED FOR LOW BLOOD SUGAR. REPEAT DOSE IF HYPOGLYCEMIA CONTINUES 15 MINUTES AFTER THE FIRST DOSE. 02/26/20 Active cyproheptadine (PERIACTIN) 4 mg tablet Take 4 mg by mouth daily at bedtime. 08/11/19 24 Active cyanocobalamin (VITAMIN B-12) 1,000 mcg/mL Solution Inject by intramuscular injection every 30 days. 11/15/19 23 Active busPIRone (BUSPAR) 10 mg tablet Take 20 mg by mouth every 12 hours. 09/28/19 24 Active ALPRAZolam (XANAX) 0.5 mg tablet Take 0.5 mg by mouth. 09/28/19 24 Active albuterol sulfate HFA 90 mcg/actuation aerosol inhaler Take by inhalation. 07/10/19 24 Active acetaminophen (TylenoL) 325 mg tablet Take 325 mg by mouth every 6 hours as needed for Pain. Active amLODIPine (NORVASC) 5 mg tablet Take 5 mg by mouth daily. 01/03/20 25 Active zinc SULFATE 50 mg zinc (220 mg) capsule Take 220 mg by mouth daily. 10/17/19 25 Active oxyCODONE (ROXICODONE) 5 mg tabletIndicati ons:Thyroid nodule Take 1 Tablet (5 mg) by mouth every 4 hours as needed for Pain. Max Daily Amount: 30 mg 20 Tablet 04/11/20 25 Active naloxone (NARCAN) 4 mg/spray Pryor, Non-Aerosol EMERGENCY USE ONLY: Administer 1 spray (4 mg) in one nostril one time. May repeat in alternating nostrils every 2-3 min until responsive or EMS arrives. 2 Each 3 04/11/20 25 Active HYDROcodone-ac etaminophen (NORCO) 10-325 mg Tablet Take 1 Tablet by mouth every 4 hours as needed. 025 Discontinu ed(Alterna te therapy prescribed ) Active Problems No known active problems Encounters Date Type Department Care Team Description 04/15/2025 External Device Data STL ABSTRACTION Provider, Abstract 04/11/2025 9:55 AM ENTRY LEVEL MARKETING ASSISTANT - 04/11/2025 12:05 PM ENTRY LEVEL MARKETING ASSISTANT Surgery [facility] [address] [place] [address] Jimmy Michel MD THYROIDECTOMY 04/11/2025 9:42 AM ENTRY LEVEL MARKETING ASSISTANT Anesthesia Event [facility] [address] [address] Jarde Jaramillo III, MD Ruise, Kelly, ASBESTOS WIRE FINISHER 04/11/2025 8:15 AM ENTRY LEVEL MARKETING ASSISTANT - 04/11/2025 12:55 PM ENTRY LEVEL MARKETING ASSISTANT Hospital Encounter [facility] [address] [address] Jimmy Michel MD Thyroid nodule Discharge Disposition: Home or Self Care 04/08/2025 Travel 04/04/2025 Telephone [facility] [address] [place] [address] Jimmy Michel MD Routine Psych/Medical Clearance 03/18/2025 11:00 AM CDT Office Visit [facility] Head Neck [facility] [place] [address] Jimmy Michel MD Thyroid nodule (Primary Dx) 03/18/2025 External Device Data STL ABSTRACTION Provider, Abstract 03/18/2025 Orders Only [facility] [address] [place] [address] Jimmy Michel MD 03/18/2025 Orders Only [facility] Head Neck [facility] [address] [place] [address] Jimmy Michel MD Pre-op testing (Primary Dx) 03/11/2025 External Device Data STL ABSTRACTION Provider, Abstract 03/11/2025 External Device Data STL ABSTRACTION Provider, Abstract 03/11/2025 External Device Data STL ABSTRACTION Provider, Abstract 03/04/2025 9:00 AM CDT Ancillary Procedure [facility] Endocrinology [facility] [address] [place] [address] Sanket Carlton MD Multinodular goiter (Primary Dx) from Last 3 Months Social History Tobacco Use Types Packs/Day Years [...] on file Legal Sex Female 11:49 PM ENTRY LEVEL MARKETING ASSISTANT Gender Identity Not on file Sexual Orientation Not on file Last Filed Vital Signs Vital Sign Reading Time Taken Comments Blood Pressure 150/65 04/11/2025 12:30 PM ENTRY LEVEL MARKETING ASSISTANT Pulse 64 04/11/2025 12:30 PM ENTRY LEVEL MARKETING ASSISTANT Temperature 36.3 C (97.4 F) 04/11/2025 11:44 AM ENTRY LEVEL MARKETING ASSISTANT Respiratory Rate 14 04/11/2025 12:3 0 PM ENTRY LEVEL MARKETING ASSISTANT Oxygen Saturation 96% 04/11/2025 12: 30 PM ENTRY LEVEL MARKETING ASSISTANT Inhaled Oxygen Concentration - - Weight 111.9 kg (246 lb 9.6 oz) 04/11/2025 8:27 AM ENTRY LEVEL MARKETING ASSISTANT Height 170.2 cm (5' 7 ) 04/11/2025 8:27 AM ENTRY LEVEL MARKETING ASSISTANT Body Mass Index 38.62 04/11/2025 8:27 AM ENTRY LEVEL MARKETING ASSISTANT Plan of Treatment Upcoming Encounters Date Type Department Care Team (Late st Contact Info) Description 04/22/2025 1:30 PM ENTRY LEVEL MARKETING ASSISTANT Office Visit [facility] Head [place] [facility] [address] [place] [address] Laura Guallpa, DELMA [address] [place] [address] 07/11/2025 12:45 PM ENTRY LEVEL MARKETING ASSISTANT Office Visit [facility] Endocrinology [facility] [address] [place] [address] Sanket Carlton MD [address] [place] [address] Health Maintenance Due Date Last Done Comments DIABETES ANNUAL FOOT EXAM 1980 DIABETES MICROALBUMIN ANNUAL SCREEN 1980 LDL CHOLESTEROL ANNUAL 1980 BREAST CANCER SCREENING 2002 COLORECTAL SCREENING 2007 Colorectal Cancer Screening 2007 FIT-DNA Q 3 years 2007 FIT/FOBT Q 1 year 2007 Flex Sig/CT Colonography Q 5 years 2007 ZOSTER VACCINE (1 of 2) 2012 INFLUENZA VACCINE (#1) 2024 DIABETES HBA1C Q 6 MONTHS 05/20/2025 11/18/2024 DIABETES ANNUAL RETINAL EXAM 12/25/2025 12/25/2024, 12/26/2023 DTAP/TDAP/TD VACCINES (2 - Td or Tdap) 05/10/2031 RSV VACCINE (60+ or ) (1 - 1-dose 75+ series) 2037 Medical Devices Implanted Type Area Candy Bar Attendant Device Identifier Shelf Expiration Date Model / Serial / Lot Clip Ligating Horizon Sm [id number] - Sn/A Implanted:Qty : 1 on 04/11/2025 by Jimmy Michel MD at [facility] Clip Right: Neck [employer] 12/22/2029605205 / N/A / [id number] Clip Ligating Horizon Med Ti [id number] - Csc - Sn/A Implanted:Qty : 1 on 04/11/2025 by Jimmy Michel MD at [facility] Clip Right: Neck TELEFLEX- WECK CLOSURE SYS 12/05/2029098080 / N/A / [id number] Clip Ligating Horizon Med Ti [id number] - Csc - Sn/A Implanted:Qty : 1 on 04/11/2025 by Jimmy Michel MD at [facility] Clip Right: Neck TELEFLEX- WECK CLOSURE SYS 08/30/2029 [id number] / N/A / [id number] Agent Hemostat Surgicel 3x4in 3s - [id number] Implanted:Qty : 1 on 04/11/2025 by Jimmy Michel MD at [facility] Hemostatic Right: Neck [employer] 04/27/2029 [id number] / / [id number] Procedures Procedure Name Priority Date/Time Associated Diagnosis Comments TELEMETRY REPORT 04/15/2025 10:3 1 AM ENTRY LEVEL MARKETING ASSISTANT POC GLUCOSE Routine 04/11/2025 11:13 AM ENTRY LEVEL MARKETING ASSISTANT PATHOLOGY Pathology 04/11/2025 10:35 AM ENTRY LEVEL MARKETING ASSISTANT Thyroid nodule GA THYROIDECTOMY TOTAL/COMPLETE 04/11/2025 9:55 AM ENTRY LEVEL MARKETING ASSISTANT Thyroid nodule from Last 3 Months Results * TELEMETRY REPORT (04/15/2025 10:31 AM ENTRY LEVEL MARKETING ASSISTANT) us Provider Scanning ECG ORDERABLES Final Result * (ABNORMAL) POC GLUCOSE (04/11/2025 11:13 AM ENTRY LEVEL MARKETING ASSISTANT) GLUCOSE POC 118(H) 74 - 99 mg/dL 04/11/2025 11:13 AM ENTRY LEVEL MARKETING ASSISTANT [facility] SPECIMEN SOURCE, GLUCOSE POC Capillary 04/11/2025 11:13 AM ENTRY LEVEL MARKETING ASSISTANT [facility] Blood, whole 04/11/2025 11:1 3 AM ENTRY LEVEL MARKETING ASSISTANT 04/11/2025 11:21 AM ENTRY LEVEL MARKETING ASSISTANT us Jimmy Michel MD POINT OF CARE TESTING Final Res ult [facility] CLIA # [id number] [address] [address] [place] [address] * PATHOLOGY (04/11/2025 10:35 AM ENTRY LEVEL MARKETING ASSISTANT) CASE REPORT Surgical Pathology Report Case: [id number] Authorizing Provider: Jimmy Michel MD Collected: 04/11/2025 10:35 AM Ordering Location: [facility] E Received: 04/11/2025 12:[address] Pathologist: Corrine Maria MD Specimens: A) - Thyroid, right B) - Lymph node, central neck 1:37 PM ENTRY LEVEL MARKETING ASSISTANT [facility] FINAL DIAGNOSIS A. Right thyroid, lobectomy - Benign thyroid with follicular nodular disease, 3.5 cm dominant nodule - Normocellular parathyroid gland identified / B. Central neck lymph nodes, dissection - 4 benign lymph nodes (0/4) Corrine Maria MD [id number] 1:37 PM ENTRY LEVEL MARKETING ASSISTANT [facility] at 1337 ENTRY LEVEL MARKETING ASSISTANT GROSS DESCRIPTION A. Received in a container [...] No other masses or lesions are identified. Box Blank Machine Operator Helper sections are submitted as follows: A1: Mass [...] Ariadne Reyes MS, PA (ASCP)CM 1:37 PM ENTRY LEVEL MARKETING ASSISTANT [facility] OPERATIVE PROCEDURE 1: THYROIDECTOMY 1:37 PM ENTRY LEVEL MARKETING ASSISTANT [facility] CLINICAL INFORMATION right thyroid stitch brower superior pole Thyroid nodule [E04.1] 5 1:37 PM ENTRY LEVEL MARKETING ASSISTANT [facility] COMMENT The Xignite voice-activated dictation system may have been used [...] determined by the [facility] in compliance with CLIA'88 regulations. Some of these tests rely on the use of analyte specific reagents and are subject to specific labeling requirements by the FDA. All controls show appropriate reactivity. This testing was developed by the [facility]. It has not been cleared or approved by the FDA. The FDA has determined that such clearance or approval is not necessary. 5 1:37 PM ENTRY LEVEL MARKETING ASSISTANT [facility] Tissue ENTIRE THYROID GLAND / Unknown Collection / Unknown 04/11/2025 10:35 AM ENTRY LEVEL MARKETING ASSISTANT 04/11/2025 12:32 PM ENTRY LEVEL MARKETING ASSISTANT Comment:right thyroid stitch brower superior pole Tissue specimen (specimen) ENTIRE LYMPH NODE / Unknown 04/11/2025 10:40 AM ENTRY LEVEL MARKETING ASSISTANT 04/11/2025 12:32 PM ENTRY LEVEL MARKETING ASSISTANT Comment:central neck node us Jimmy Michel MD PATHOLOGY/CYTOLOGY ORDERABLES F in[id number] [address] [address] [place] [address] from Last 3 Months Insurance [facility] [address] [employer] [employer]UM [address] [place] [address] Advance Directives For more information, please contact: [phone] * Full Code (Latest Code Status on File) Date Activated Date Inactivated Comments 04/11/2025 9:36 AM 04/11/2025 4:35 PM Care Teams Sourcing Assistant Relationship Specialty Start Date End Date Nayeli Gonzales MD [address] [place] [address] PCP - General Family Practice 06/22/10
--- OUTSIDE RECORDS SUMMARY | 2025-04-16 15:11 | XMS_ITS | Encounter Summary ---
Author Organization [facility] Address [address] [place] [address] Care Team Providers Care Stop Attacher Name Role Phone Nayeli Gonzales MD Primary Care Provider +1- [phone] Encounter Details Date Type Department Care Team (Latest Contact Info) Description 04/15/1999 Outpatient Historical [facility] Anthony Quiroga MD [address] [place] [phone] Ganglion of joint (Primary Dx) Social History Tobacco Use Types Packs/Day Years Used Date Smoking Tobacco: Never Assessed Comments Unknown Sex and Gender Information Value Date Recorded Sex Assigned at Not on file Legal Sex Female 3:58 AM SINK MAKER Gender Identity Not on file Sexual Orientation Not on file documented as of this encounter Plan of Treatment Not on file documented as of this encounter Visit Diagnoses Diagnosis Ganglion of joint- Primary documented in this encounter Care Teams Stop Attacher Relationship Specialty Start Date End Date Nayeli Gonzales MD [address] [place] [address] PCP - General Family Practice 06/22/10 documented as of this encounter
--- OUTSIDE RECORDS SUMMARY | 2025-04-16 15:11 | XMS_ITS | Encounter Summary ---
Author Organization [facility] Address [address] [place] [address] Care Team Providers Care Superintendent Seed Mill Name Role Phone Nayeli Gonzales MD Primary Care Provider +1- [phone] Encounter Details Date Type Department Care Team (Latest Contact Info) Description 09/13/1999 Outpatient Historical [facility] Jorge L Kam Jr., MD [address] [place] [id number] Attention to dressings and sutures (Primary Dx) Social History Tobacco Use Types Packs/Day Years Used Date Smoking Tobacco: Never Assessed Comments Unknown Sex and Gender Information Value Date Recorded Sex Assigned at Not on file Legal Sex Female 3:58 AM TAR DISTILLATION SUPERVISOR Gender Identity Not on file Sexual Orientation Not on file documented as of this encounter Plan of Treatment Not on file documented as of this encounter Visit Diagnoses Diagnosis Attention to dressings and sutures- Primary documented in this encounter Care Teams Superintendent Seed Mill Relationship Specialty Start Date End Date Nayeli Gonzales MD [address] [place] [address] PCP - General Family Practice 06/22/10 documented as of this encounter
--- OUTSIDE RECORDS SUMMARY | 2025-04-16 15:11 | XMS_ITS | Encounter Summary ---
Author Organization [facility] Address [address] [place] [address] Care Team Providers Care Computer Project Manager Name Role Phone Nayeli Gonzales MD Primary Care Provider +1- [phone] Encounter Details Date Type Department Care Team (Latest Contact Info) Description 12/24/1998 Outpatient Historical HIS [facility] Anthony Quiroga MD [address] [place] [phone] Bronchitis, not specified as acute or chronic (Primary Dx); Depressive disorder, not elsewhere classified Social History Tobacco Use Types Packs/Day Years Used Date Smoking Tobacco: Never Assessed Comments Unknown Sex and Gender Information Value Date Recorded Sex Assigned at Not on file Legal Sex Female 3:58 AM PARKING MANAGER Gender Identity Not on file Sexual Orientation Not on file documented as of this encounter Plan of Treatment Not on file documented as of this encounter Visit Diagnoses Diagnosis Bronchitis, not specified as acute or chronic- Primary Depressive disorder, not elsewhere classified documented in this encounter Care Teams Computer Project Manager Relationship Specialty Start Date End Date Nayeli Gonzales MD [address] [place] [address] PCP - General Family Practice 06/22/10 documented as of this encounter
--- OUTSIDE RECORDS SUMMARY | 2025-04-16 15:11 | XMS_ITS | Encounter Summary ---
Author Organization [facility] Address [address] [place] [address] Care Team Providers Care Clay Dry Press Operator Name Role Phone Nayeli Gonzales MD Primary Care Provider +1- [phone] Encounter Details Date Type Department Care Team (Late st Contact Info) Description 04/15/2025 External Device Data STL ABSTRACTION Provider, Abstract NO ADDRESS ON FILE Social History Tobacco [...] on file Legal Sex Female 11:49 PM ASSESSMENT NURSE Gender Identity Not on file Sexual Orientation Not on file documented as of this encounter Plan of Treatment Upcoming Encounters Date Type Department Care Team (Late st Contact Info) Description 04/22/2025 1:30 PM ASSESSMENT NURSE Office Visit [facility] N[facility] Throat Head Neck S[facility] [address] [place] [address] Laura Guallpa FNP [address] [place] [address] 07/11/2025 12:45 PM ASSESSMENT NURSE Office Visit [facility] Endocrin[facility] [address] [place] [address] Sanket Carlton MD [address] [place] [address] documented as of this encounter Visit Diagnoses Not on filedocumented in this encounter Care Teams Clay Dry Press Operator Relationship Specialty Start Date End Date Nayeli Gonzales MD [address] [place] [phone] PCP - General Family Practice 06/22/10 documented as of this encounter
--- OUTSIDE RECORDS SUMMARY | 2025-04-16 15:11 | XMS_ITS | Encounter Summary ---
Author Organization [facility] Address [address] [facility] Attn: [place] [address] Care Team Providers Care Mortgage Closer Name Role Phone Nayeli Gonzales MD Primary Care Provider +1- [phone] Encounter Details Date Type Department Care Team (Late st Contact Info) Description 12/11/2006 Outpatient Historical Jorge L Garza MD NO ADDRESS ON FILE Social History Tobacco Use Types Packs/Day Years Used Date Smoking Tobacco: Never Assessed Comments Unknown Sex and Gender Information Value Date Recorded Sex Assigned at Not on file Legal Sex Female 3:58 AM INFORMATICS COORDINATOR Gender Identity Not on file Sexual Orientation [...] on filedocumented in this encounter Care Teams Mortgage Closer Relationship Specialty Start Date End Date Nayeli Gonzales MD [address] [place] [address] PCP - General Family Practice 06/22/10 documented as of this encounter
--- OUTSIDE RECORDS SUMMARY | 2025-04-16 15:12 | XMS_ITS | Encounter Summary ---
Author Organization [facility] Address [address] [place] [address] Care Team Providers Care Rn Cardiovascular Icu Name Role Phone Nayeli Gonzales MD Primary Care Provider +1- [phone] Encounter Details Date Type Department Care Team (Latest Contact Info) Description 07/26/1999 Outpatient Historical HIS [facility] Anthony Quiroga MD [address] [place] [phone] Urinary tract infection, site not specified (Primary Dx); Lumbago; Acute upper respiratory infections of unspecified site Social History Tobacco Use Types Packs/Day Years Used Date Smoking Tobacco: Never Assessed Comments Unknown Sex and Gender Information Value Date Recorded Sex Assigned at Not on file Legal Sex Female 3:58 AM RADIO EQUIPMENT REPAIRER Gender Identity Not on file Sexual Orientation Not on file documented as of this encounter Plan of Treatment Not on file documented as of this encounter Visit Diagnoses Diagnosis Urinary tract infection, site not specified- Primary Lumbago Acute upper respiratory infections of unspecified site documented in this encounter Care Teams Rn Cardiovascular Icu Relationship Specialty Start Date End Date Nayeli Gonzales MD [address] [place] [address] PCP - General Family Practice 06/22/10 documented as of this encounter
--- OUTSIDE RECORDS SUMMARY | 2025-04-16 15:12 | XMS_ITS | Encounter Summary ---
Author Organization [facility] Address [address] [place] [address] Care Team Providers Care Museum Curator Name Role Phone Nayeli Gonzales MD Primary Care Provider +1- [phone] Encounter Details Date Type Department Care Team (Latest Contact Info) Description 09/08/1999 Outpatient Historical [facility] Jorge L Kam Jr., MD [address] [place] [address] Ingrowing nail (Primary Dx) Social History Tobacco Use Types Packs/Day Years Used Date Smoking Tobacco: Never Assessed Comments Unknown Sex and Gender Information Value Date Recorded Sex Assigned at Not on file Legal Sex Female 3:58 AM ELECTRICAL DRAFTER Gender Identity Not on file Sexual Orientation Not on file documented as of this encounter Plan of Treatment Not on file documented as of this encounter Visit Diagnoses Diagnosis Ingrowing nail- Primary documented in this encounter Care Teams Museum Curator Relationship Specialty Start Date End Date Nayeli Gonzales MD [address] [place] [address] PCP - General Family Practice 06/22/10 documented as of this encounter
--- OUTSIDE RECORDS SUMMARY | 2025-04-16 15:12 | XMS_ITS | Encounter Summary ---
Author Organization [facility] Address [address] [place] [address] Care Team Providers Care Account Support Analyst Name Role Phone Nayeli Gonzales MD Primary Care Provider +1- [phone] Encounter Details Date Type Department Care Team (Latest Contact Info) Description 07/23/1999 Outpatient Historical HIS [facility] Anthony Quiroga MD [address] [place] [phone] Other and unspecified noninfectious gastroenteritis and colitis(558.9) (Primary Dx); Urinary tract infection, site not specified; Symptomatic menopausal or female climacteric states; Nausea alone Social History Tobacco Use Types Packs/Day Years Used Date Smoking Tobacco: Never Assessed Comments Unknown Sex and Gender Information Value Date Recorded Sex Assigned at Not on file Legal Sex Female 3:58 AM SENIOR SALES CONSULTANT Gender Identity Not on file Sexual Orientation [...] alone documented in this encounter Care Teams Account Support Analyst Relationship Specialty Start Date End Date Nayeli Gonzales MD [address] [place] [address] PCP - General Family Practice 06/22/10 documented as of this encounter
--- OUTSIDE RECORDS SUMMARY | 2025-04-16 15:12 | XMS_ITS | Encounter Summary ---
Author Organization [facility] Address [address] [place] [address] Care Team Providers Care Retail Inventory Control Clerk Name Role Phone Nayeli Gonzales MD Primary Care Provider +1- [phone] Encounter Details Date Type Department Care Team (Latest Contact Info) Description 03/30/1998 Outpatient Historical [facility] Grzegorz Douglas MD [address] [phone] Other postprocedural status(V45.89) (Primary Dx) Social History Tobacco Use Types Packs/Day Years Used Date Smoking Tobacco: Never Assessed Comments Unknown Sex and Gender Information Value Date Recorded Sex Assigned at Not on file Legal Sex Female 3:58 AM VERIFICATION ENGINEER Gender Identity Not on file Sexual Orientation Not on file documented as of this encounter Plan of Treatment Not on file documented as of this encounter Visit Diagnoses Diagnosis Other postprocedural status(V45.89)- Primary Other postprocedural status documented in this encounter Care Teams Retail Inventory Control Clerk Relationship Specialty Start Date End Date Nayeli Gonzales MD [address] [place] [address] PCP - General Family Practice 06/22/10 documented as of this encounter
[2025-04-16 15:21] VITALS: BP 144/73; PULSE 60; O2SAT 99
== END 2025-04-16 15:22 | disposition home or self-care (01) ==
PROVIDERS: Emergency Medicine; Emergency Provider Physician Assistant; PCP Nurse Practitioner
DX: E86.0 Dehydration (principal); Z98.890 Other specified postprocedural states
CPT/HCPCS: 36415; 80053; 83690; 84443; 85025; 96360; 96361; 96372; 99284; J2550; J7030

== ENCOUNTER 2025-04-28 12:22 | Emergency (ER) | payer OTHER, SELFPAY ==
--- OUTSIDE RECORDS SUMMARY | 2025-04-22 13:30 | XMS_ITS | Encounter Summary ---
Author Organization [facility] Address [address] [place] [address] Care Team Providers Care Photoengraving Printer Name Role Phone Nayeli Gonzales MD Primary Care Provider +1- [phone] Reason for Visit * Reason Comments Post-op Visit Encounter Details Date Type Department Care Team (Late st Contact Info) Description 04/22/2025 1:30 PM AUTOMATION DRIVER Office Visit [facility] Ear Nose and Throat Head Neck SGF [address] [place] [address] Laura Guallpa, DESULFURIZER OPERATOR [address] [place] [address] H/O partial thyroidectomy (right) (Primary Dx) Social History Tobacco Use Types [...] on file Legal Sex Female 11:49 PM AUTOMATION DRIVER Gender Identity Not on file Sexual Orientation Not on file documented as of this encounter Last Filed Vital Signs Vital Sign Reading Time Taken Comments Blood Pressure 132/64 04/22/2025 1:09 PM AUTOMATION DRIVER Pulse - - Temperature - - Respiratory Rate - - Oxygen Saturation - - Inhaled Oxygen Concentration - - Weight 110.7 kg (244 lb) 04/22/2025 1:09 PM AUTOMATION DRIVER Height 170.2 cm (5' 7 ) 04/22/2025 1:09 PM AUTOMATION DRIVER Body Mass Index 38.22 04/22/2025 1:09 PM AUTOMATION DRIVER documented in this encounter Progress Notes * Laura Guallpa, DELMA - 04/22/2025 1:30 PM CST Patient ID: Randi Kay [id number] Date of Service: 04/22/2025 Referring Provider: No ref. provider found PCP: Nayeli Gonzales MD Subjective: Chief Complaint: Randi Kay is a 65 y.o. female who I am asked to see in consultation for evaluation of multinodular goiter Interval History 04/22/2025: She reports doing well overall since procedure. She denies new neck masses, persistent sore throat,dysphagia, or otalgia. Reports she gets vocal fatigue as she talks on the phone a work so much. Sheis aware that it can take some time for things to return to normal. Procedure 04/11/2025: 1. Right hemithyroidectomy with isthmusectomy 2. Excisional lymph node biopsy right central neck FINAL DIAGNOSIS A. Right thyroid, lobectomy - Benign thyroid with follicular nodular disease, 3.5 cm dominant nodule - Normocellular parathyroid gland identified / B. Central neck lymph nodes, dissection - 4 benign lymph nodes (0/4) History of Present Illness: Randi is a 64yo female presenting to discuss right thyroid nodules-- she reports a near 3cm nodulewith concerns regarding reproducible pain, difficulty swallowing, and also voice changes. Today we discussed right thyroidectomy which is her preference given the localizable discomfort. I have independently interpreted the imaging and agree with the radiologist's interpretation. I also reviewed the recent note from No ref. provider found on 03/04/25 Imaging: - CT scan of head and neck showed a nodule on the right side of the thyroid Right thyroid nodule measured 2.9 x 2 x 3.1 cm - Diagnostic testing: - Biopsy of the right thyroid nodule showed benign scattered focal macrophages, hyperplasia, colloid cyst Past Medical History: Diagnosis Date Arthritis Deep vein thrombosis (DVT) (CMS/HCC) 2024 PE Depression ILDA (generalized anxiety disorder) GERD (gastroesophageal reflux disease) Hx of Prinzmetal angina Malignant neoplasm of breast (female), unspecified site uterine Motion sickness MRSA (methicillin resistant Staphylococcus aureus) 2006 staph infection where pain pump was implanted Obstructive sleep apnea Post-operative nausea and vomiting Past Surgical History: Procedure Laterality Date HX APPENDECTOMY HX CHOLECYSTECTOMY HX HEART CATHETERIZATION HX KNEE REPLACEMENT HX TONSILLECTOMY [place] THYROIDECTOMY TOTAL/COMPLETE Right 04/11/2025 THYROIDECTOMY performed by Jimmy Michel MD at [facility] No family history on file. Current Outpatient Medications Medication Sig Dispense Refill cholecalciferol, Vitamin D3, 50 mcg (2,000 unit) Tablet Take 50 mcg by mouth. isosorbide dinitrate (ISORDIL) 30 mg Tablet Take 30 mg by mouth. oxyCODONE (ROXICODONE) 5 mg tablet Take 1 Tablet (5 mg) by mouth every 4 hours as needed for Pain. Max Daily Amount: 30 mg 20 Tablet 0 naloxone (NARCAN) 4 mg/spray [place], Non-Aerosol EMERGENCY USE ONLY: Administer 1 spray (4 mg) in one nostril one time. May repeat in alternating nostrils every 2-3 min until responsive or EMS arrives. 2 Each 3 acetaminophen (TylenoL) 325 mg tablet Take 325 mg by mouth every 6 hours as needed for Pain. amLODIPine (NORVASC) 5 mg tablet Take 5 mg by mouth daily. zinc SULFATE 50 mg zinc (220 mg) capsule Take 220 mg by mouth daily. spironolactone (ALDACTONE) 25 mg tablet Take 25 mg by mouth 2 times daily. prochlorperazine maleate (COMPAZINE) 10 mg tablet Take 10 mg by mouth every 8 hours. pregabalin (LYRICA) 300 mg Capsule Take 300 mg by mouth every 12 hours. prazosin (MINIPRESS) 2 mg capsule Take 2 mg by mouth daily at bedtime. Takes 8mg daily pm oxyBUTYnin (DITROPAN XL) 15 mg Extended Release 24 hour tablet Take 30 mg by mouth. omeprazole (PriLOSEC) 40 mg Capsule, Delayed Release(E.C.) Take 40 mg by mouth 2 times daily. fluticasone propionate (FLONASE) 50 mcg/spray [place], Suspension nasal inhaler Administer in each nostril. DULoxetine (CYMBALTA) 60 mg Capsule, Delayed Release(E.C.) Take 60 mg by mouth. glucose 4 gram Tablet, Chewable CHEW AND SWALLOW FIVE TABLETS BY MOUTH NEEDED FOR LOW BLOOD SUGAR. REPEAT DOSE IF HYPOGLYCEMIA CONTINUES 15 MINUTES AFTER THE FIRST DOSE. cyproheptadine (PERIACTIN) 4 mg tablet Take 4 mg by mouth daily at bedtime. cyanocobalamin (VITAMIN B-12) 1,000 mcg/mL Solution Inject by intramuscular injection every 30 days. busPIRone (BUSPAR) 10 mg tablet Take 20 mg by mouth every 12 hours. ALPRAZolam (XANAX) 0.5 mg tablet Take 0.5 mg by mouth. albuterol sulfate HFA 90 mcg/actuation aerosol inhaler Take by inhalation. cpap hospitalist medical director CPAP @ 11 cwp with heated [...] feature and mask fitting. 1 Each 0 No current facility-administered medications for this visit. Allergies Allergen Reactions Mushroom Anaphylaxis Ondansetron Anaphylaxis, Seizure, Other (See Comments) and Unknown Tetracycline Rash and Swelling Trouble swallowing Trazodone Other (See Comments) paralysis Venom-Honey Bee Anaphylaxis Oxycodone-Aspirin Rash Venlafaxine Rash Social History Socioeconomic History Marital status: Spouse name: Not on file Number of children: Not on file Years of education: Not on file Highest education level: Not on file Occupational History Not on file Tobacco Use Smoking status: Former Smokeless tobacco: Never Vaping Use Vaping status: Never Used Substance and Sexual Activity Alcohol use: Not Currently Drug use: No Sexual activity: Not on file Other Topics Concern Not on file Social History Narrative Not on file Health-Related Social Needs Food Insecurity: No Food Insecurity (03/20/2024) Received from [facility] Health Hunger Vital Sign Within the past 12 months, you worried that your food would run out before you got the money to buymore.: Never true Within the past 12 months, the food you bought just didn't last and you didn't have money to get more.: Never true Transportation Needs: Not on file Domestic Concerns: Not At Risk (04/11/2025) Feeling Safe Patient has indicated abuse: : No Housing Stability: Not on file Review of Systems: Constitutional: denies weight loss Eye: denies vision changes Ear, Nose, Mouth, Throat: see hpi Respiratory: denies cough Cardiovascular: denies chest pain Gastrointestinal: denies reflux symptoms Genitourinary: denies dysuria Integumentary, Breast: denies skin lesions Hematologic, Oncologic, Lymphatic: denies anticoagulation/bleeding Musculoskeletal: denies muscle weakness Neurological: denies neurological issues Behavior, Psychologic: denies psychiatric illness Endocrine: denies diabetes, thyroid problems Allergy: denies allergic rhinitis Objective: BP 132/64 Ht 5' 7 (1.702 m) Wt 110.7 kg (244 lb) BMI 38.22 kg/m?? Body mass index is 38.22 kg/m??. This is an alert, oriented female; she is in no acute distress. Vital Signs Stable. HEENT: Voice: normal Head is normocephalic, atraumatic, midline. Ears: Bilateral external ears normal Eyes are equal, reactive, round bilateral. Nose is midline. Septum midline Mouth: Tongue midline without anomaly. Teeth - Yes Oropharynx: Base of tongue and tonsillar fossa are normal in appearance Salivary Glands: normal flow. No palpable masses or stones. Neck: no neck masses Mirror Indirect laryngoscopy: N/A Trachea is midline, thyroid within normal limits. Resp: normal respirations Cardiac: normal peripheral perfusion. Abdomen: no gastrostomy tube Skin: No lesions or rashes, neck incision is healing well Extremities: [id number], normal cap refill Neuro: CN II-XII grossly intact Assessment: Randi was seen today for post-op visit. Diagnoses and all orders for this visit: H/O partial thyroidectomy (right) Modified Charlson Age Comorbidity Index 4 Total Score 2 Colorectal, Bladder, Breast, Prostate, and Other Cancers 2 Age Plan: 1. Follow up with ENT as needed. 2. Follow up with Endocrinology Dr. Carlton as scheduled. 3. Discussed if after a month she is still having issues with voice she can come back and we can scope her. 4. Return to work note given to patient. TOBACCO COUNSELING She is not a tobacco/nicotine user. DELMA Barros MATION DRIVER documented in this encounter Plan of Treatment Upcoming Encounters Date Type Department Care Team (Late st Contact Info) Description 07/11/2025 12:45 PM AUTOMATION DRIVER Office Visit [facility] [address] [facility] [address] [place] [phone] Sanket Carlton MD [address] [facility] [address] [place] [address] documented as of this encounter Visit Diagnoses Diagnosis H/O partial thyroidectomy (right)- Primary Other postprocedural status documented in this encounter Care Teams Photoengraving Printer Relationship Specialty Start Date End Date Nayeli Gonzales MD [address] [place] [address] PCP - General Family Practice 06/22/10 documented as of this encounter
[2025-04-28] VITALS (8 sets, daily range): BP systolic 107–140; BP diastolic 58–81; PULSE 51–61; RESP 18; TEMP 36.5; O2SAT 94–100
--- NOTE | 2025-04-28 12:34 | ECG_ITS ---
[employer] Test Date: 2025-04-28 Pat Name: Randi Kay Department: Room: Gender: Female Hospital Administrative Assistant: : 1960 Requested By: John Coleman Order Number: [id number] Delores MD: Gayathri Buchanan M.D. Measurements Intervals Coy Rate: 60 P: 22 DE: 158 QRS: -50 QRSD: 156 T: -2 QT: 456 QTc: 457 Interpretive Statements SINUS RHYTHM RIGHT BUNDLE BRANCH BLOCK [120+ ms QRS DURATION, UPRIGHT V1, 40+ ms S IN I/aVL/V4/V5/V6] LEFT ANTERIOR FASCICULAR BLOCK [QRS AXIS <= -45, QR IN I, RS IN II] POSSIBLE ANTEROSEPTAL MYOCARDIAL INFARCTION , OF INDETERMINATE AGE [30 ms Q WAVE IN V1-V4] INTERPRETATION BASED ON A DEFAULT AGE OF 40 YEARS Compared to ECG 12/31/2024 19:33:53 No significant changes Electronically Signed On 04-29-2025 20:03:10 MOTOR GRADER ROUGH GRADE by Gayathri Buchanan M.D. [email or web address]
--- NOTE | 2025-04-28 12:40 | XR_ITS ---
WS: [id number] Exam: XR chest 1V portable [id number] Date/Time of Exam: 04/28/2025 1:01 PM Reason For Exam: chest pain Comparison 12/30/2024. The lungs are clear and fully inflated. Heart size top limits normal. No pleural effusion. Bony structures are intact. XR/XR chest 1V portable [id number] IMPRESSION: 1. No acute cardiopulmonary finding.
--- OUTSIDE RECORDS SUMMARY | 2025-04-28 12:54 | XMS_ITS | Encounter Summary ---
Author Organization [facility] Address [address] [place] [address] Care Team Providers Care Oracle Database Analyst Name Role Phone Nayeli Gonzales MD Primary Care Provider +1- [phone] Encounter Details Date Type Department Care Team (Latest Contact Info) Description 09/08/1999 Outpatient Historical [facility] Jorge L Kam Jr., MD [address] [place] [phone] Ingrowing nail (Primary Dx) Social History Tobacco Use Types Packs/Day Years Used Date Smoking Tobacco: Never Assessed Comments Unknown Sex and Gender Information Value Date Recorded Sex Assigned at Not on file Legal Sex Female 3:58 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
--- OUTSIDE RECORDS SUMMARY | 2025-04-28 12:54 | XMS_ITS | Encounter Summary ---
Author Organization [facility] Address [address] [place] [address] Care Team Providers Care Medical Facilities Section Director Name Role Phone Nayeli Gonzales MD Primary Care Provider +1- [phone] Encounter Details Date Type Department Care Team (Latest Contact Info) Description 12/24/1998 Outpatient Historical HIS [facility] Anthony Quiroga MD [address] [place] [phone] Bronchitis, not specified as acute or chronic (Primary Dx); Depressive disorder, not elsewhere classified Social History Tobacco Use Types Packs/Day Years Used Date Smoking Tobacco: Never Assessed Comments Unknown Sex and Gender Information Value Date Recorded Sex Assigned at Not on file Legal Sex Female 3:58 AM PAGINATOR Gender Identity Not on file Sexual Orientation Not on file documented as of this encounter Plan of Treatment Not on file documented as of this encounter Visit Diagnoses Diagnosis Bronchitis, not specified as acute or chronic- Primary Depressive disorder, not elsewhere classified documented in this encounter Care Teams Medical Facilities Section Director Relationship Specialty Start Date End Date Nayeli Gonzales MD [address] [place] [address] PCP - General Family Practice 06/22/10 documented as of this encounter
--- OUTSIDE RECORDS SUMMARY | 2025-04-28 12:54 | XMS_ITS | Encounter Summary ---
Author Organization [facility] Address [address] [place] [address] Care Team Providers Care Healthcare Network Consultant Name Role Phone Nayeli Gonzales MD Primary Care Provider +1- [phone] Encounter Details Date Type Department Care Team (Latest Contact Info) Description 06/03/2007 [facility] [address] [place] [address] Nayeli Gonzales MD [address] [place] [address] Other Screening Mammogram Social History Tobacco Use Types Packs/Day Years Used Date Smoking Tobacco: Never Assessed Comments Unknown Sex and Gender Information Value Date Recorded Sex Assigned at Not on file Legal Sex Female 3:58 AM BUTTON SEWER HAND Gender Identity Not on file Sexual Orientation Not on file documented as of this encounter Plan of Treatment Not on file documented as of this encounter Visit Diagnoses Diagnosis Other screening mammogram documented in this encounter Care Teams Healthcare Network Consultant Relationship Specialty Start Date End Date Nayeli Gonzales MD [address] [place] [phone] PCP - General Family Practice 06/22/10 documented as of this encounter
--- OUTSIDE RECORDS SUMMARY | 2025-04-28 12:54 | XMS_ITS | Encounter Summary ---
Author Organization [facility] Address [address] [place] [address] Care Team Providers Care Lunchroom Supervisor Name Role Phone Nayeli Gonzales MD Primary Care Provider +1- [phone] Encounter Details Date Type Department Care Team (Latest Contact Info) Description 07/26/1999 Outpatient Historical HIS [facility] Anthony Quiroga MD [address] [place] [phone] Urinary tract infection, site not specified (Primary Dx); Lumbago; Acute upper respiratory infections of unspecified site Social History Tobacco Use Types Packs/Day Years Used Date Smoking Tobacco: Never Assessed Comments Unknown Sex and Gender Information Value Date Recorded Sex Assigned at Not on file Legal Sex Female 3:58 AM DEFENCE FORCE SENIOR OFFICER Gender Identity Not on file Sexual Orientation Not on file documented as of this encounter Plan of Treatment Not on file documented as of this encounter Visit Diagnoses Diagnosis Urinary tract infection, site not specified- Primary Lumbago Acute upper respiratory infections of unspecified site documented in this encounter Care Teams Lunchroom Supervisor Relationship Specialty Start Date End Date Nayeli Gonzales MD [address] [place] [address] PCP - General Family Practice 06/22/10 documented as of this encounter
--- OUTSIDE RECORDS SUMMARY | 2025-04-28 12:54 | XMS_ITS | Encounter Summary ---
Author Organization [facility] Address [address] [place] [address] Care Team Providers Care Glass Ribbon Machine Operator Assistant Name Role Phone Nayeli Gonzales MD Primary Care Provider +1- [phone] Encounter Details Date Type Department Care Team (Latest Contact Info) Description 04/15/1999 Outpatient Historical HIS [facility] Anthony Quiroga MD [address] [place] [phone] Ganglion of joint (Primary Dx) Social History Tobacco Use Types Packs/Day Years Used Date Smoking Tobacco: Never Assessed Comments Unknown Sex and Gender Information Value Date Recorded Sex Assigned at Not on file Legal Sex Female 3:58 AM PRODUCT PROMOTER RETAIL PET Gender Identity Not on file Sexual Orientation Not on file documented as of this encounter Plan of Treatment Not on file documented as of this encounter Visit Diagnoses Diagnosis Ganglion of joint- Primary documented in this encounter Care Teams Glass Ribbon Machine Operator Assistant Relationship Specialty Start Date End Date Nayeli Gonzales MD [address] [place] [address] PCP - General Family Practice 06/22/10 documented as of this encounter
--- OUTSIDE RECORDS SUMMARY | 2025-04-28 12:54 | XMS_ITS | Encounter Summary ---
Author Organization [facility] Address [address] [facility] Attn: [place] [address] Care Team Providers Care Agricultural Research Technician Name Role Phone Nayeli Gonzales MD Primary Care Provider +1- [phone] Encounter Details Date Type Department Care Team (Late st Contact Info) Description 12/11/2006 Outpatient Historical Jorge L Garza MD NO ADDRESS ON FILE Social History Tobacco Use Types Packs/Day Years Used Date Smoking Tobacco: Never Assessed Comments Unknown Sex and Gender Information Value Date Recorded Sex Assigned at Not on file Legal Sex Female 3:58 AM METER REPAIRER Gender Identity Not on file Sexual [...] on filedocumented in this encounter Care Teams Agricultural Research Technician Relationship Specialty Start Date End Date Nayeli Gonzales MD [address] [place] [address] PCP - General Family Practice 06/22/10 documented as of this encounter
--- OUTSIDE RECORDS SUMMARY | 2025-04-28 12:54 | XMS_ITS | Clinical Summary ---
Author Organization [facility] Address [address] [place] [address] Dr. 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 [...] and mask fitting. 1 Each 1 Active spironolactone (ALDACTONE) 25 mg tablet Take 25 mg by mouth 2 times daily. Active prochlorperazi ne maleate (COMPAZINE) 10 mg tablet Take 10 mg by mouth every 8 hours. 4 Active pregabalin (LYRICA) 300 mg Capsule Take 300 mg by mouth every 12 hours. 2 Active prazosin (MINIPRESS) 2 mg capsule Take 2 mg by mouth daily at bedtime. Takes 8mg daily pm Active oxyBUTYnin (DITROPAN XL) 15 mg Extended Release 24 hour tablet Take 30 mg by mouth. 1 Active omeprazole (PriLOSEC) 40 mg Capsule, Delayed Release(E.C.) Take 40 mg by mouth 2 times daily. 3 Active fluticasone propionate (FLONASE) 50 mcg/spray [place], Suspension nasal inhaler Administer in each nostril. 4 Active DULoxetine (CYMBALTA) 60 mg Capsule, Delayed Release(E.C.) Take 60 mg by mouth. 4 Active glucose 4 gram Tablet, Chewable CHEW AND SWALLOW FIVE TABLETS BY MOUTH NEEDED FOR LOW BLOOD SUGAR. REPEAT DOSE IF HYPOGLYCEMIA CONTINUES 15 MINUTES AFTER THE FIRST DOSE. 1 Active cyproheptadine (PERIACTIN) 4 mg tablet Take 4 mg by mouth daily at bedtime. 4 Active cyanocobalamin (VITAMIN B-12) 1,000 mcg/mL Solution Inject by intramuscular injection every 30 days. 3 Active busPIRone (BUSPAR) 10 mg tablet Take 20 mg by mouth every 12 hours. 4 Active ALPRAZolam (XANAX) 0.5 mg tablet Take 0.5 mg by mouth. 4 Active albuterol sulfate HFA 90 mcg/actuation aerosol inhaler Take by inhalation. 4 Active acetaminophen (TylenoL) 325 mg tablet Take 325 mg by mouth every 6 hours as needed for Pain. Active amLODIPine (NORVASC) 5 mg tablet Take 5 mg by mouth daily. 5 Active zinc SULFATE 50 mg zinc (220 mg) capsule Take 220 mg by mouth daily. 5 Active oxyCODONE (ROXICODONE) 5 mg tabletIndicati ons:Thyroid nodule Take 1 Tablet (5 mg) by mouth every 4 hours as needed for Pain. Max Daily Amount: 30 mg 20 Tablet 5 Active naloxone (NARCAN) 4 mg/spray [place], Non-Aerosol EMERGENCY USE ONLY: Administer 1 spray (4 mg) in one nostril one time. May repeat in alternating nostrils every 2-3 min until responsive or EMS arrives. 2 Each 3 5 Active cholecalcifero l, Vitamin D3, 50 mcg (2,000 unit) Tablet Take 50 mcg by mouth. 5 Active isosorbide dinitrate (ISORDIL) 30 mg Tablet Take 30 mg by mouth. 5 Active Active Problems No known active problems Encounters Date Type Department Care Team Description 04/22/2025 1:30 PM HEALTH SAFETY SPECIALIST Office Visit [facility] Ear Nose and Throat Head Neck S[facility] [address] [place] [address] Laura Guallpa FNP H/O partial thyroidectomy (right) (Primary Dx) 04/15/2025 External Device Data STL ABSTRACTION Provider, Abstract 04/11/2025 9:55 AM HEALTH SAFETY SPECIALIST - 04/11/2025 12:05 PM HEALTH SAFETY SPECIALIST Surgery [facility] [place] [address] [place] [address] Jimmy Michel MD THYROIDECTOMY 04/11/2025 9:42 AM HEALTH SAFETY SPECIALIST Anesthesia Event [facility] [place] [address] [place] [phone] Jared Jaramillo III, MD Ruise, Kelly, LALO 04/11/2025 8:15 AM HEALTH SAFETY SPECIALIST - 04/11/2025 12:55 PM HEALTH SAFETY SPECIALIST Hospital Encounter [facility] [address] [place] [address] [place] [address] Jimmy Michel MD Thyroid nodule Discharge Disposition: Home or Self Care 04/08/2025 Travel 04/04/2025 Telephone [facility] Ear, Nose and Throat [address] [place] [address] [place] [phone] Jimmy Michel MD Routine Psych/Medical Clearance 03/18/2025 11:00 AM CDT Office Visit [facility] Ear Nose and Throat Head Neck SGF [address] [place] [address] Jimmy Michel MD Thyroid nodule (Primary Dx) 03/18/2025 External Device Data STL ABSTRACTION Provider, Abstract 03/18/2025 Orders Only [facility] Ear, Nose and Throat [address] [place] [address] [place] [address] Jimmy Michel MD 03/18/2025 Orders Only [facility] Ear Nose and Throat Head Neck SGF [address] [place] [address] Jimmy Michel MD Pre-op testing (Primary Dx) 03/11/2025 External Device Data STL ABSTRACTION Provider, Abstract 03/11/2025 External Device Data STL ABSTRACTION Provider, Abstract 03/11/2025 External Device Data STL ABSTRACTION Provider, Abstract 03/04/2025 9:00 AM CDT Ancillary Procedure [facility] Endocrinology [facility] [address] [place] [address] Sanket Carlton MD Multinodular goiter (Primary Dx) [...] on file Legal Sex Female 11:49 PM HEALTH SAFETY SPECIALIST Gender Identity Not on file Sexual Orientation Not on file Last Filed Vital Signs Vital Sign Reading Time Taken Comments Blood Pressure 132/64 04/22/2025 1:09 PM HEALTH SAFETY SPECIALIST Pulse 64 04/11/2025 12:30 PM HEALTH SAFETY SPECIALIST Temperature 36.3 C (97.4 F) 04/11/2025 11:44 AM HEALTH SAFETY SPECIALIST Respiratory Rate 14 04/11/2025 12:30 PM HEALTH SAFETY SPECIALIST Oxygen Saturation 96% 04/11/2025 12:30 PM HEALTH SAFETY SPECIALIST Inhaled Oxygen Concentration - - Weight 110.7 kg (244 lb) 04/22/2025 1:09 PM HEALTH SAFETY SPECIALIST Height 170.2 cm (5' 7 ) 04/22/2025 1:09 PM HEALTH SAFETY SPECIALIST Body Mass Index 38.22 04/22/2025 1:09 PM HEALTH SAFETY SPECIALIST Plan of Treatment Upcoming Encounters Date Type Department Care Team (Late st Contact Info) Description 07/11/2025 12:45 PM HEALTH SAFETY SPECIALIST Office Visit [facility] Endocrinology [facility] [place] [place] [address] [place] [address] Sanket Carlton MD [address] [place] [address] Health Maintenance Due Date Last [...] (#1) 2024 DIABETES HBA1C Q 6 MONTHS 10/19/2025 04/21/2025 DIABETES ANNUAL RETINAL EXAM 12/25/2025 12/25/2024, 12/26/2023 DTAP/TDAP/TD VACCINES (2 - Td or Tdap) 05/10/2031 RSV VACCINE (60+ or ) (1 - 1-dose 75+ series) 2037 Medical Devices Implanted Type Area Loan Approver Device Identifier Shelf Expiration Date Model / Serial / Lot Clip Ligating Horizon Sm [id number] - Sn/A Implanted:Qty : 1 on 04/11/2025 by Jimmy Michel MD at [facility] Clip Right: Neck [employer] 12/22/2029 [id number] / N/A / [id number] Clip Ligating Horizon Med Ti [id number] - Csc - Sn/A Implanted:Qty : 1 on 04/11/2025 by Jimmy Michel MD at [facility] Clip Right: Neck TELEFLEX- WECK CLOSURE SYS 12/05/2029 [id number] / N/A / [id number] Clip Ligating Horizon Med Ti [id number] - Csc - Sn/A Implanted:Qty : 1 on 04/11/2025 by Jimmy Michel MD at [facility] Clip Right: Neck TELEFLEX- WECK CLOSURE SYS 08/30/2029 [id number] / N/A / [id number] Agent Hemostat Surgicel 3x4in 1943s - [id number] Implanted:Qty : 1 on 04/11/2025 by Jimmy Michel MD at [facility] Hemostatic Right: Neck [employer]- [employer] 04/27/2029 [id number] / / [id number] Procedures Procedure Name Priority Date/Time Associated Diagnosis Comments TELEMETRY REPORT 04/15/2025 10:3 1 AM HEALTH SAFETY SPECIALIST POC GLUCOSE Routine 04/11/2025 11:13 AM HEALTH SAFETY SPECIALIST PATHOLOGY Pathology 04/11/2025 10:35 AM HEALTH SAFETY SPECIALIST Thyroid nodule WA THYROIDECTOMY TOTAL/COMPLETE 04/11/2025 9:55 AM HEALTH SAFETY SPECIALIST Thyroid nodule from Last 3 Months Results * TELEMETRY REPORT (04/15/2025 10:31 AM HEALTH SAFETY SPECIALIST) us Provider Scanning ECG ORDERABLES Final Result * (ABNORMAL) POC GLUCOSE (04/11/2025 11:13 AM HEALTH SAFETY SPECIALIST) GLUCOSE POC 118(H) 74 - 99 mg/dL 04/11/2025 11:13 AM HEALTH SAFETY SPECIALIST [facility] SPECIMEN SOURCE, GLUCOSE POC Capillary 04/11/2025 11:13 AM HEALTH SAFETY SPECIALIST [facility] Blood, whole 04/11/2025 11:1 3 AM HEALTH SAFETY SPECIALIST 04/11/2025 11:21 AM HEALTH SAFETY SPECIALIST us Jimmy Michel MD POINT OF CARE TESTING Final Res ult [facility] [id number] [address] [place] [address] [place] [address] * PATHOLOGY (04/11/2025 10:35 AM HEALTH SAFETY SPECIALIST) CASE REPORT Surgical Pathology Report Case: [id number] Authorizing Provider: Jimmy Michel MD Collected: 04/11/2025 10:35 AM Ordering Location: [facility] E Received: 04/11/2025 12:32 [address] [place] Pathologist: Corrine Maria MD Specimens: A) - Thyroid, right B) - Lymph node, central neck 1:37 PM HEALTH SAFETY SPECIALIST [facility] FINAL DIAGNOSIS A. Right thyroid, lobectomy - Benign thyroid with follicular nodular disease, 3.5 cm dominant nodule - Normocellular parathyroid gland identified / B. Central neck lymph nodes, dissection - 4 benign lymph nodes (0/4) Corrine Maria MD [id number] 1:37 PM HEALTH SAFETY SPECIALIST [facility] at 1337 HEALTH SAFETY SPECIALIST GROSS DESCRIPTION A. Received in a container [...] No other masses or lesions are identified. Personnel Director sections are submitted as follows: A1: Mass [...] submitted entirely in B1. Grossed by: Ariadne eRyes MS, PA ([facility])CM 1:37 PM [facility] OPERATIVE PROCEDURE 1: THYROIDECTOMY 1:37 PM [facility] CLINICAL INFORMATION right thyroid stitch brower superior pole Thyroid nodule [E04.1] 1:37 PM [facility] COMMENT The CareToSave voice-activated dictation system may have been used [...] determined by the [facility] in compliance with CLIA'88 regulations. Some of these tests rely on the use of analyte specific reagents and are subject to specific labeling requirements by the FDA. All controls show appropriate reactivity. This testing was developed by the [facility]. It has not been cleared or approved by the FDA. The FDA has determined that such clearance or approval is not necessary. 1:37 PM HEALTH SAFETY SPECIALIST [facility] Tissue ENTIRE THYROID GLAND / Unknown Collection / Unknown 04/11/2025 10:35 AM HEALTH SAFETY SPECIALIST 04/11/2025 12:32 PM HEALTH SAFETY SPECIALIST Comment:right thyroid stitch brower superior pole Tissue specimen (specimen) ENTIRE LYMPH NODE / Unknown 04/11/2025 10:40 AM HEALTH SAFETY SPECIALIST 04/11/2025 12:32 PM HEALTH SAFETY SPECIALIST Comment:central neck node us Jimmy Michel MD PATHOLOGY/CYTOLOGY ORDERABLES F inal Result [facility] [id number] [address] [address] from Last 3 Months Insurance [place] [employer] [address] [place] [address] Advance Directives For more information, please contact: [phone] * Full Code (Latest Code Status on File) Date Activated Date Inactivated Comments 04/11/2025 9:36 AM 04/11/2025 4:35 PM Care Teams It Help Desk Technician Relationship Specialty Start Date End Date Nayeli Gonzales MD [address] [place] [address] PCP - General Family Practice 06/22/10
--- OUTSIDE RECORDS SUMMARY | 2025-04-28 12:54 | XMS_ITS | Encounter Summary ---
Author Organization [facility] Address [address] [place] [address] Care Team Providers Care Twister Hand Name Role Phone Nayeli Gonzales MD Primary Care Provider +1- [phone] Encounter Details Date Type Department Care Team (Latest Contact Info) Description 03/30/1998 Outpatient Historical [facility] Grzegorz Douglas MD [address] [phone] Other postprocedural status(V45.89) (Primary Dx) Social History Tobacco Use Types Packs/Day Years Used Date Smoking Tobacco: Never Assessed Comments Unknown Sex and Gender Information Value Date Recorded Sex Assigned at Not on file Legal Sex Female 3:58 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
--- OUTSIDE RECORDS SUMMARY | 2025-04-28 12:54 | XMS_ITS | Encounter Summary ---
Author Organization [facility] Address [address] [place] [address] Care Team Providers Care Print Machine Operator Name Role Phone Nayeli Gonzales MD Primary Care Provider +1- [phone] Encounter Details Date Type Department Care Team (Latest Contact Info) Description 11/22/1999 Outpatient Historical [facility] Jorge L Kam Jr., MD [address] [place] [phone] Sprain of ankle, unspecified site (Primary Dx) Social History Tobacco Use Types Packs/Day Years Used Date Smoking Tobacco: Never Assessed Comments Unknown Sex and Gender Information Value Date Recorded Sex Assigned at Not on file Legal Sex Female 3:58 AM SYSTEMS ARCHITECTURE ANALYST Gender Identity Not on file Sexual Orientation Not on file documented as of this encounter Plan of Treatment Not on file documented as of this encounter Visit Diagnoses Diagnosis Sprain of ankle, unspecified site- Primary documented in this encounter Care Teams Print Machine Operator Relationship Specialty Start Date End Date Naeyli Gonzales MD [address] [place] [address] PCP - General Family Practice 06/22/10 documented as of this encounter
--- OUTSIDE RECORDS SUMMARY | 2025-04-28 12:54 | XMS_ITS | Clinical Summary ---
Author Organization [facility] Address [address] [place] [address] Care Team Providers Care Landing Worker Name Role Phone Nayeli Gonzales MD Primary Care Provider +1- [phone] Allergies Active Allergy Reactions Criticality Noted Date [...] on file Legal Sex Female 3:58 AM ROD PLACER Gender Identity Not on file Sexual Orientation Not on file Last Filed Vital Signs Vital Sign Reading Time Taken Comments Blood Pressure 124/82 06/25/2010 1:14 PM ROD PLACER Pulse 62 06/25/2010 1:14 PM ROD PLACER Temperature 36.6 C (97.9 F) 08/23/2010 1:13 PM CDT Respiratory Rate 16 06/25/2010 1:14 PM ROD PLACER Oxygen Saturation 97% 06/25/2010 1:14 PM ROD PLACER Inhaled Oxygen Concentration - - Weight 122 [...] (1 - 1-dose 75+ series) 2037 Insurance [facility] Care Teams Landing Worker Relationship Specialty Start Date End Date Nayeli Gonzales MD [address] [place] [address] PCP - General Family Practice 06/22/10
--- OUTSIDE RECORDS SUMMARY | 2025-04-28 12:54 | XMS_ITS | Encounter Summary ---
Author Organization [facility] Address [address] [place] [address] Care Team Providers Care Gardener Florist Name Role Phone Nayeli Gonzales MD Primary Care Provider +1- [phone] Encounter Details Date Type Department Care Team (Latest Contact Info) Description 10/07/1998 Outpatient Historical [facility] Josias Lacy NO ADDRESS ON FILE Unspecified disorder of skin and subcutaneous tissue (Primary Dx) Social History Tobacco Use Types Packs/Day Years Used Date Smoking Tobacco: Never Assessed Comments Unknown Sex and Gender Information Value Date Recorded Sex Assigned at Not on file Legal Sex Female 3:58 AM FIRE PATROLLER Gender Identity Not on file Sexual Orientation Not on file documented as of this encounter Plan of Treatment Not on file documented as of this encounter Visit Diagnoses Diagnosis Unspecified disorder of skin and subcutaneous tissue- Primary documented in this encounter Care Teams Gardener Florist Relationship Specialty Start Date End Date Nayeli Gonzales MD [address] [place] [address] PCP - General Family Practice 06/22/10 documented as of this encounter
--- OUTSIDE RECORDS SUMMARY | 2025-04-28 12:54 | XMS_ITS | Encounter Summary ---
Author Organization [facility] Address [address] [place] [address] Care Team Providers Care Restoration Technician Name Role Phone Nayeli Gonzales MD Primary Care Provider +1- [phone] Encounter Details Date Type Department Care Team (Latest Contact Info) Description 07/23/1999 Outpatient Historical [facility] Anthony Quiroga MD [address] [place] [id number] Other and unspecified noninfectious gastroenteritis and colitis(558.9) (Primary Dx); Urinary tract infection, site not specified; Symptomatic menopausal or female climacteric states; Nausea alone Social History Tobacco Use Types Packs/Day Years Used Date Smoking Tobacco: Never Assessed Comments Unknown Sex and Gender Information Value Date Recorded Sex Assigned at Not on file Legal Sex Female 3:58 AM PER DIEM INTERPRETER Gender Identity Not on file Sexual [...] alone documented in this encounter Care Teams Restoration Technician Relationship Specialty Start Date End Date Nayeli Gonzales MD [address] [place] [address] PCP - General Family Practice 06/22/10 documented as of this encounter
--- OUTSIDE RECORDS SUMMARY | 2025-04-28 12:54 | XMS_ITS | Encounter Summary ---
Author Organization [facility] Address [address] [place] [address] Care Team Providers Care Water Quality Analyst Name Role Phone Nayeli Gonzales MD Primary Care Provider +1- [phone] Encounter Details Date Type Department Care Team (Latest Contact Info) Description 09/24/1999 Outpatient Historical [facility] Josias Lacy NO ADDRESS ON FILE Conjunctivitis unspecified (Primary Dx) Social History Tobacco Use Types Packs/Day Years Used Date Smoking Tobacco: Never Assessed Comments Unknown Sex and Gender Information Value Date Recorded Sex Assigned at Not on file Legal Sex Female 3:58 AM SENIOR GRANT WRITER Gender Identity Not on file Sexual Orientation Not on file documented as of this encounter Plan of Treatment Not on file documented as of this encounter Visit Diagnoses Diagnosis Conjunctivitis unspecified- Primary Conjunctivitis, unspecified documented in this encounter Care Teams Water Quality Analyst Relationship Specialty Start Date End Date Nayeli Gonzales MD [address] [place] [address] PCP - General Family Practice 06/22/10 documented as of this encounter
--- OUTSIDE RECORDS SUMMARY | 2025-04-28 12:54 | XMS_ITS | Encounter Summary ---
Author Organization [facility] Address [address] [place] [address] Care Team Providers Care Reservation Manager Name Role Phone Nayeli Gonzales MD Primary Care Provider +1- [phone] Encounter Details Date Type Department Care Team (Latest Contact Info) Description 03/23/1998 Outpatient Historical [facility] Grzegorz Douglas MD [address] [phone] Other postprocedural status(V45.89) (Primary Dx) Social History Tobacco Use Types Packs/Day Years Used Date Smoking Tobacco: Never Assessed Comments Unknown Sex and Gender Information Value Date Recorded Sex Assigned at Not on file Legal Sex Female 3:58 AM ACCESS SPECIALIST Gender Identity Not on file Sexual Orientation Not on file documented as of this encounter Plan of Treatment Not on file documented as of this encounter Visit Diagnoses Diagnosis Other postprocedural status(V45.89)- Primary Other postprocedural status documented in this encounter Care Teams Reservation Manager Relationship Specialty Start Date End Date Nayeli Gonzales MD [address] [place] [address] PCP - General Family Practice 06/22/10 documented as of this encounter
--- OUTSIDE RECORDS SUMMARY | 2025-04-28 12:54 | XMS_ITS | Encounter Summary ---
Author Organization [facility] Address [address] [place] [address] Care Team Providers Care Sanitarian Aide Name Role Phone Nayeli Gonzales MD Primary Care Provider +1- [phone] Encounter Details Date Type Department Care Team (Latest Contact Info) Description 09/13/1999 Outpatient Historical [facility] Jorge L Kam Jr., MD [address] [place] [id number] Attention to dressings and sutures (Primary Dx) Social History Tobacco Use Types Packs/Day Years Used Date Smoking Tobacco: Never Assessed Comments Unknown Sex and Gender Information Value Date Recorded Sex Assigned at Not on file Legal Sex Female 3:58 AM STAFF DEVELOPMENT EDUCATOR Gender Identity Not on file Sexual Orientation Not on file documented as of this encounter Plan of Treatment Not on file documented as of this encounter Visit Diagnoses Diagnosis Attention to dressings and sutures- Primary documented in this encounter Care Teams Sanitarian Aide Relationship Specialty Start Date End Date Nayeli Gonzales MD [address] [place] [address] PCP - General Family Practice 06/22/10 documented as of this encounter
--- NOTE | 2025-04-28 13:00 | W.ED.CHESTPA ---
HPI - Chest Pain General: Chief Complaint: Chest Pain Stated Complaint: cp Time Seen by Provider: 04/28/25 12:55 History of Present Illness: 67-year-old female presents emergency room with complaints of chest pain that began while at rest. Patient had angiogram done in December of this year showed normal coronary artery disease. She had had a positive stress test prior. Patient denies any nausea or vomiting denies any abdominal pain. Denies any shortness of breath or productive cough Associated symptoms: Deny abdominal pain, dyspnea or fever(s) Related Data Home Medications ?Medication ?Instructions ?Recorded ?Confirmed prazosin 2 mg capsule 8 mg PO BEDTIME 10/18/21 04/16/25 pregabalin 300 mg capsule (Lyrica) 300 mg PO BID 06/17/22 04/16/25 cyproheptadine 4 mg tablet 4 mg PO BEDTIME 08/11/23 04/16/25 omeprazole 20 mg capsule,delayed 20 mg PO BID 07/18/24 04/16/25 release isosorbide dinitrate 30 mg tablet 30 mg PO BID 07/26/24 04/16/25 oxybutynin chloride 5 mg tablet 10 mg PO TID 08/21/24 04/16/25 methocarbamol 750 mg tablet 750 mg PO TID PRN Spasms 10/01/24 04/16/25 prochlorperazine maleate 10 mg 10 mg PO DAILY PRN Nausea 10/01/24 04/16/25 tablet alprazolam 0.5 mg tablet 0.5 mg PO DAILY PRN Anxiety 04/16/25 04/16/25 buspirone 10 mg tablet 10 mg PO BID 04/16/25 04/16/25 calcium 400 mg 1 tab PO TID 04/16/25 04/16/25 (carbonate)-magnesium 167 mg (oxide)-D3 133 unit tablet (Calcium Magnesium plus D) duloxetine 60 mg capsule,delayed 60 mg PO BID 04/16/25 04/16/25 release qsvexmnc-kyksgkce-onax 45 mg-folic 1 cap PO DAILY 04/16/25 04/16/25 acid 800 mcg-vit K 120 mcg capsule (Bariatric Multivitamins) oxycodone 5 mg tablet 5 mg PO Q4H PRN Pain 04/16/25 04/16/25 Previous Rx's ?Medication ?Instructions ?Recorded pantoprazole 40 mg tablet,delayed 40 mg PO BID 10 days #40 tabs 04/28/25 release (Protonix) Allergies Allergy/AdvReac Type Severity Reaction Status Date / Time ondansetron (From Zofran) Allergy Severe Dystonia Verified 04/28/25 12:40 bee venom protein (honey bee) Allergy anaphylaxis Verified 04/28/25 12:40 Influenza Virus Vaccines Allergy anaphylacti Verified 04/28/25 12:40 c mushroom Allergy anaphylaxis Verified 04/28/25 12:40 tetracycline Allergy Rash, Verified 04/28/25 12:40 shortness of breath trazodone Allergy Rash, Verified 04/28/25 12:40 trouble breathing vaccines Allergy ALGY-Anaphy Uncoded 04/28/25 12:40 laxis Review of Systems Const: Denies: fever(s) or chills Card: Reports: chest pain Resp: Denies: dyspnea GI: Denies: abdominal pain : Denies: dysuria, urinary frequency or urinary urgency Musc: Denies: neck pain or back pain Skin/Breast: Denies: rash PFSH ED PFSH: Medical History Tear of medial meniscus of left knee, current Renal failure Left knee pain No pertinent past medical history NegHx: thyroid, dvt/pe PCP: Tania Gastroparesis Prinzmetal angina Metatarsalgia of both feet Post traumatic stress disorder (PTSD) Hyperlipidemia Coronary 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 Takes Lyrica for the neuropathy. Does take hydrocodone as needed for pain. GERD (gastroesophageal reflux disease) Controlled on medication Anxiety and depression Diagnosed in the and controlled well on medication at this time managed by primary care provider nurse practitioner Nitin. Primary hypertension Diagnosed in 2018 managed by primary care provider nurse practitioner Nitin Surgical History H/O esophagogastroduodenoscopy (09/01/21) History of coronary angiogram 06/2021 and 05/2022 History of surgery neck lipoma removal- S/P appendectomy 1980-right lower quadrant incision, right ovary and appendix were removed. Hx of breast surgery ductectomy from the left breast done in her late 30s S/P tubal ligation 1982-immediately . History of back surgery Pain pump insertion, removed in 2014 S/P left knee arthroscopy Hx of oophorectomy 1980---right lower quadrant incision-right ovary and appendix were removed when she presented with pain to the emergency room S/P hysterectomy 1985--vaginal hysterectomy with left oophorectomy performed for a uterine mass she was told that there was no cancer but there were some abnormal cells and it was recommended that she have chemotherapy for 6 weeks however she did only 2 weeks and then did not finish the rest of treatment. S/P tonsillectomy and adenoidectomy As a child S/P cholecystectomy Laparoscopic procedure performed in 1992 Family History Mother Heart disease Hypertension Ovarian cancer Diagnosed at age 34 Suicide Thyroid disease Uterine cancer Diagnosed at age 34, unsure of origin Father Heart disease Thyroid disease Sister Thyroid disease Family/Other Thyroid disease [place], granddaughter Other Diabetes Social History Smoking and tobacco/nicotine status: former use of tobacco/nicotine Quit status (tobacco/nicotine): has quit using Second hand smoke exposure: No Alcohol intake: former Substance/Drug Use: never Adopted: No Caregiver/support person: No Lives independently: Yes Housing: House Marital status: Number of children: 2 Highest education level completed: Associate Degree: Occupational, Technical, Vocational Program service: Yes Pets and animals: Yes Sexually active: Yes Do you think of yourself as: Straight/Heterosexual Gricel/Zoroastrian: Zoroastrian Special gricel needs: No Agree to transfusion: No Physical Exam Const: GENERAL APPEARANCE: cooperative ORIENTATION/CONSCIOUSNESS: Yes awake, Yes oriented to person, Yes oriented to place and Yes oriented to time HENMT: COMMON NORMALS: normocephalic, atraumatic and hearing grossly normal bilaterally HEAD & SCALP: normocephalic and atraumatic Resp: COMMON NORMALS: normal respiratory effort, No retractions, No use of accessory muscles and clear to auscultation bilaterally AUSCULTATION: clear to auscultation bilaterally Cardio: COMMON NORMALS: regular rate, regular rhythm and No murmurs present (Cardio) RATE: regular rate RHYTHM: regular rhythm GI: COMMON NORMALS: Soft to palpation and No hepatosplenomegaly present AUSCULTATION: Yes normoactive bowel sounds PALPATION: Yes Soft to palpation, No Tenderness to palpation present (GI), No Guarding due to palpation present (GI) and Yes No hepatosplenomegaly present Extremity: COMMON NORMALS: normal to inspection, capillary refill normal, no clubbing, cyanosis or edema, no calf tenderness and no pedal edema Neuro: SENSORIUM/ORIENTATION: Yes oriented to person, Yes oriented to place and Yes oriented to time Skin: COMMON NORMALS: no rashes or lesions noted GENERAL SKIN EXAM: no rashes or lesions noted Course Vital Signs: Vital signs: Vital Signs Temperature 97.7 F 04/28/25 12:29 Pulse Rate 56 L 04/28/25 15:00 Respiratory Rate 18 04/28/25 15:39 Blood Pressure 111/58 04/28/25 15:00 Pulse Oximetry 99 04/28/25 15:39 Oxygen Delivery Me thod Room Air 04/28/25 15:00 MDM - Chest Pain Medical Decision Making Medical decision making Social determinants: None I reviewed the patient's medical record. I reviewed the patient's current home meds Alternate historians: None Differential diagnosis: Acute coronary syndrome versus pneumonia versus pneumothorax versus pulmonary embolism versus dissecting aneurysm Lab Review: EKG and labs are normal. Imaging: Chest x-ray normal no widening of mediastinum no infiltrates no pneumothorax. Assessment of risk: Level of risk: Low moderate Hospitalization considerations: Pending results of workup may require admission if has pneumonia acute coronary syndrome pneumothorax or PE. Reexamination: Improved Assessment and plan: Chest x-ray shows no pneumonia no pneumothorax there is no widening of the mediastinum she has no classic tearing like pain radiating into her back she did have pain in her chest similar to what she had prior to her angiogram. Cardiac enzymes and her EKGs were normal. I discussed with Dr. Buchanan on-call for cardiology and reviewed her recent cath no finding and to be coronary arteries suspect this may be more related to reflux disease. Dr. Buchanan does not think any further evaluation for cardiac would need to be done. Patient home to hold omeprazole, start pantoprazole 40 twice daily x 10 days then daily follow-up with cardiology and her primary care doctor within the next week. Lab Data 04/28/25 12:55 04/28/25 12:55 Radiology Impressions Chest X-Ray 04/28/25 12:40 IMPRESSION: 1. No acute cardiopulmonary finding. Laboratory Results WBC 8.36 10^3/uL (3.29-11.43) 04/28/25 12:55 RBC 4.28 10^6/uL (3.85-5.65) 04/28/25 12:55 Hgb 12.60 g/dL (11.27-16.99) 04/28/25 12:55 Hct 39.0 % (36-47) 04/28/25 12:55 MCV 91.1 fl (85-98) 04/28/25 12:55 MCH 29.4 pg (27-33) 04/28/25 12:55 MCHC 32.3 g/dL (30-55) 04/28/25 12:55 RDW 13.0 % (12.1-15.1) 04/28/25 12:55 Plt Count 174 10^3/cmm (157-399) 04/28/25 12:55 MPV 12.0 fL (7.4-10.4) H 04/28/25 12:55 Neut % (Auto) 44.2 % 04/28/25 12:55 Lymph % (Auto) 41.7 % 04/28/25 12:55 [place] % (Auto) 9.6 % 04/28/25 12:55 Eos % (Auto) 3.2 % 04/28/25 12:55 Baso % (Auto) 1.1 % 04/28/25 12:55 Neut # (Auto) 3.69 10^3/uL (1.8-7.7) 04/28/25 12:55 Lymph # (Auto) 3.5 10^3/uL (0.8-4.8) 04/28/25 12:55 [place] # (Auto) 0.8 10^3/uL (0.2-0.9) 04/28/25 12:55 Eos # (Auto) 0.3 10^3/uL (0.0-0.8) 04/28/25 12:55 Baso # (Auto) 0.1 10^3/uL (0.0-0.1) 04/28/25 12:55 Nucleated RBC % (auto) 0 % 04/28/25 12:55 Nucleated RBCs # 0.0 /100WBC 04/28/25 12:55 Sodium 141 mmol/L (136-145) 04/28/25 12:55 Potassium 3.6 mmol/L (3.5-5.1) 04/28/25 12:55 Chloride 109 mmol/L (98-107) H 04/28/25 12:55 Carbon Dioxide 23 mmol/L (22-29) 04/28/25 12:55 Anion Gap 12.6 (5-19) 04/28/25 12:55 BUN 12 mg/dL (8-23) 04/28/25 12:55 Creatinine 0.6 mg/dL (0.5-0.9) 04/28/25 12:55 GFR Calculation 101.0 mL/min (90-130) 04/28/25 12:55 Glucose 128 mg/dL (65-115) H 04/28/25 12:55 Calculated Osmolality 293 mOsm/kg (285-295) 04/28/25 12:55 Calcium 8.7 mg/dL (8.5-10.5) 04/28/25 12:55 Total Bilirubin 0.4 mg/dL (0.15-1.2) 04/28/25 12:55 AST 24 U/L (0-32) 04/28/25 12:55 ALT 25 U/L (0-33) 04/28/25 12:55 Alkaline Phosphatase 151 U/L (35-105) H 04/28/25 12:55 Troponin T Baseline 9 ng/L (0-10) 04/28/25 12:55 Troponin T 120 Minute 7.10 ng/L (0-10) 04/28/25 14:31 Delta Troponin T -1.90 ABS# (0-10) L 04/28/25 14:31 Total Protein 6.0 g/dL (6.6-8.7) L 04/28/25 12:55 Albumin 3.5 g/dL (3.5-5.2) 04/28/25 12:55 Globulin 2.5 g/dL (1.3-4.6) 04/28/25 12:55 All radiology interpretation(s) finalized by discharge Discharge Plan Discharge Patient Disposition: Home Clinical Impression: Chest pain, atypical Condition: Stable Prescriptions: New pantoprazole [Protonix] 40 mg tablet,delayed release (DR/EC) 40 mg PO BID 10 Days Qty: 40 0RF Rx Instructions: 1 p.o. twice daily x 10 days then 1 p.o. daily No Action prazosin 2 mg capsule 8 mg PO BEDTIME cyproheptadine 4 mg tablet 4 mg PO BEDTIME isosorbide dinitrate 30 mg Tablet 30 mg PO BID Rx Instructions: allow nitrate-free interval of 12-14 hrs per 24-hr period pregabalin [Lyrica] 300 mg Capsule 300 mg PO BID omeprazole 20 mg capsule,delayed release(DR/EC) 20 mg PO BID oxybutynin chloride 5 mg tablet 10 mg PO TID prochlorperazine maleate 10 mg tablet 10 mg PO DAILY PRN (Reason: Nausea) methocarbamol 750 mg tablet 750 mg PO TID PRN (Reason: Spasms) alprazolam 0.5 mg Tablet 0.5 mg PO DAILY PRN (Reason: Anxiety) buspirone 10 mg Tablet 10 mg PO BID oxycodone 5 mg tablet 5 mg PO Q4H PRN (Reason: Pain) duloxetine 60 mg Capsule,Delayed Release(Dr/Ec) 60 mg PO BID Calcium Magnesium plus D 400-167-133 mg-mg-unit Tablet 1 tab PO TID Bariatric Multivitamins 45 mg iron- 800 mcg-120 mcg Capsule 1 cap PO DAILY Discharge Orders: Discharge ED (Routine); Ordered 04/28/25 Ordered By: John Ball Referrals: Anju Taveras FNP [Primary Care Provider, Nurse Practitioner] Discharge Diet: Usual diet Discharge Activity: Resume usual activity Patient Instructions: Chest Pain (ED), Opioid Safety, Pain Management, Patient Portal & [place] Instructions Activity Restrictions/Additional Instructions: Thank you for choosing [facility] for your healthcare needs today. It is very important that you follow up as instructed or that you return to the Emergency Department should you have concerns or if your condition changes or worsens in any way. Emergency department visits are focused on emergent conditions, in some cases you may require further evaluation on an outpatient basis. You are seen emergency room with complaint of chest pain. Cardiac enzymes and EKG done in the emergency room were normal. We reviewed your previous heart catheterization and there were no findings of coronary artery disease. Your chest x-ray is normal there is no sign of pneumonia or pneumothorax or widening of the middle portion of the chest. Your oxygen saturations and your respiratory were normal as well. Recommend that you stop the omeprazole start on pantoprazole 1 pill twice a day for 10 days then once daily. 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 This information is given to all patients were discharged from the ER regardless of their discharge diagnosis or the medicines they usually take or are prescribed.) Print Language: Kazakh Coding Level of Care Code ED Dexigraph Operator for Chg Fwkirstie Heart Score HEART Score Components History: Slightly Suspicous EKG: Normal Age: 45-64 yrs Risk Factors: 1 or 2 Risk Factors Troponin: Baseline Trop <16 ng/L HEART Score RESULT HEART Score: 2
[2025-04-28 13:10] LABS: Hematocrit 39.0 % (36-47); Hemoglobin 12.60 g/dL (11.27-16.99); Mean Corpuscular HGB Conc 32.3 g/dL (30-55); Mean Corpuscular Hemoglobin 29.4 pg (27-33); Mean Corpuscular Volume 91.1 fl (85-98); Nucleated Red Blood Cells % 0 %; Platelet Count 174 10^3/cmm (157-399); Red Blood Count 4.28 10^6/uL (3.85-5.65); White Blood Count 8.36 10^3/uL (3.29-11.43)
[2025-04-28 13:26] LABS: Troponin(5th) Baseline 9 ng/L (0-10)
[2025-04-28 13:27] LABS: Alanine Aminotransferase 25 U/L (0-33); Albumin Level 3.5 g/dL (3.5-5.2); Alkaline Phosphatase 151 U/L (35-105); Anion Gap 12.6 (5-19); Aspartate Amino Transferase 24 U/L (0-32); Blood Urea Nitrogen 12 mg/dL (8-23); Calcium 8.7 mg/dL (8.5-10.5); Carbon Dioxide 23 mmol/L (22-29); Chloride 109 mmol/L (98-107); Globulin 2.5 g/dL (1.3-4.6); Glucose 128 mg/dL (65-115); Osmolality Calculated 293 mOsm/kg (285-295); Potassium 3.6 mmol/L (3.5-5.1); Sodium 141 mmol/L (136-145); Total Protein 6.0 g/dL (6.6-8.7)
--- NOTE | 2025-04-28 14:40 | ECG_ITS ---
[facility] Test Date: 2025-04-28 Pat Name: Randi Kay Department: Room: Gender: Female Book[employer] Clerk: : 1960 Requested By: John Coleman Order Number: [id number] Delores MD: Gayathri Buchanan M.D. Measurements Intervals [place] Rate: 63 P: 32 UT: 178 QRS: -46 QRSD: 158 T: -11 QT: 473 QTc: 485 Interpretive Statements SINUS RHYTHM WITH OCCASIONAL VENTRICULAR PREMATURE COMPLEXES RIGHT BUNDLE BRANCH BLOCK [120+ ms QRS DURATION, UPRIGHT V1, 40+ ms S IN I/aVL/V4/V5/V6] LEFT ANTERIOR FASCICULAR BLOCK [QRS AXIS <= -45, QR IN I, RS IN II] POSSIBLE ANTERIOR MYOCARDIAL INFARCTION , OF INDETERMINATE AGE [30 ms Q WAVE IN V3/V4, OR R < 0.2 mV IN V4] Compared to ECG 04/28/2025 12:34:55 Ventricular premature complex(es) now present Myocardial infarct finding still present Electronically Signed On 04-29-2025 20:56:01 ANNUAL GIVING MANAGER by Gayathri Buchanan M.D. [email or web address]
[2025-04-28 14:58] LABS: Troponin 5 2HR 7.10 ng/L (0-10)
[2025-04-28 15:00] LABS: Troponin 5 2HR Delta -1.90 ABS# (0-10)
[2025-04-28] MEDS: morphine 4 mg/mL SDV 1 mL 2 MG IVP (15:39)
== END 2025-04-28 16:19 | disposition home or self-care (01) ==
PROVIDERS: Emergency Provider Family Medicine; PCP Nurse Practitioner
DX: R07.89 Other chest pain (principal); Z87.891 Personal history of nicotine dependence; E78.5 Hyperlipidemia, unspecified; I25.10 Atherosclerotic heart disease of native coronary artery without angina pectoris; I10 Essential (primary) hypertension; E11.40 Type 2 diabetes mellitus with diabetic neuropathy, unspecified
CPT/HCPCS: 36415; 71045; 80053; 84484; 85025; 93005; 96374; 99285; J2270; J9999

== ENCOUNTER → 2025-04-29 13:27 | Outpatient (BNVA) | payer OTHER, SELFPAY | PROVIDERS: PCP Nurse Practitioner; Visit Provider Nurse Practitioner Family | DX: I25.111 Atherosclerotic heart disease of native coronary artery with angina pectoris with documented spasm (principal); I10 Essential (primary) hypertension; E78.5 Hyperlipidemia, unspecified; Z87.891 Personal history of nicotine dependence; E11.42 Type 2 diabetes mellitus with diabetic polyneuropathy; R00.1 Bradycardia, unspecified; G47.33 Obstructive sleep apnea (adult) (pediatric); R55 Syncope and collapse | CPT/HCPCS: 99214 ==

== ENCOUNTER → 2025-05-02 07:57 | Outpatient (BNVA) | payer OTHER, SELFPAY | PROVIDERS: PCP Nurse Practitioner; Visit Provider Nurse Practitioner | DX: M17.0 Bilateral primary osteoarthritis of knee (principal); Z71.89 Other specified counseling | CPT/HCPCS: 20610; J1100; J2795; J3301; J9999 ==